=== PATIENT | female | born 1980 | race Caucasian/White ===

== ENCOUNTER 2016-12-12 18:52 | Emergency (ER) | payer OTHER ==
[2016-12-12 19:18] VITALS: BP 141/97
== END 2016-12-12 21:06 | disposition left against medical advice (07) ==
LOC: ED 18:52
DX: R53.83 Other fatigue (principal); Z53.21 Procedure and treatment not carried out due to patient leaving prior to being seen by health care provider

== ENCOUNTER 2016-12-18 19:03 | Emergency (ER) | payer OTHER ==
--- NOTE | 2016-12-18 21:45 | ED ---
Natalya Bolton Rebecca, scribed for Nadeem Mann MD on 12/18/16 at 2114 . Neurological HPI - HPI Summary HPI Summary: Pt is a 36 y/o F who presents to ED c/o seizure aura. Aura began suddenly today at 1850 and has been constant since onset. Quotes aura as a metallic taste in her mouth. Sx aggravated and alleviated by nothing, unchanged by 1 mg Lorazepam (1850). Additionally c/o palpating in her left ear, a "tired" feeling in the LLE and BHATIA (R temporal region). Associated pain is ranked 10/10. PMHx seizures with auras. Typically auras do not last as long as current episode. Last seizure was October 23, 2016 for which she was evaluated by [facility] ED. - History of Current Complaint Chief Complaint: EDSeizure Stated Complaint: SEIZURE AURA Time Seen by Provider: 12/18/16 21:01 Hx Obtained From: Patient Onset/Duration: Sudden Onset, Started hours ago - 3 hours, Still Present Timing: Constant Onset Severity: Moderate Current Severity: Severe Headache Location: Temporal (Right) Pain Intensity: 10 Pain Scale Used: 0-10 Numeric Aggravating: Nothing Alleviating: Nothing Associated Signs and Symptoms: Positive: Headache - R temporal, Weakness - "tired" LLE, Pain - R lutheran pain - Additional Pertinent History Primary Care Physician: [id number] - Allergy/Home Medications Allergies/Adverse Reactions: Allergies Allergy/AdvReac Type Severity Reaction Status Date / Time Bee Venom Allergy Severe Hives Verified 10/22/16 17:22 Morphine Allergy Severe Hives Verified 10/22/16 17:22 Mushroom Extract Complex Allergy Severe Hives Verified 10/22/16 17:22 PMH/Surg Hx/FS Hx/Imm Hx Endocrine/Hematology History: Reports: Hx Anemia - IV iron tx Denies: Hx Anticoagulant Therapy, Hx Diabetes, Hx Thyroid Disease Cardiovascular History: Denies: Hx Congestive Heart Failure, Hx Hypertension, Hx Pacemaker/ICD Comment Only: Other Cardiovascular Problems/Disorders - Arteriovenous malformation - Sx repair in 2008. Right atrial enlargement. Respiratory History: Denies: Hx Asthma, Hx Chronic Obstructive Pulmonary Disease (COPD) History: Denies: Hx Renal Disease Neurological History: Reports: Hx Seizures - grand mal Denies: Hx Dementia Comment Only: Other Neuro Impairments/Disorders - HX OF AVM Psychiatric History: Denies: Hx Substance Abuse - Surgical History Surgery Procedure, Year, and Place: AVM REPAIR. RT TEMPORAL LOBE IN 2009 [place] (removed scar tissue). 5 CSECTIONS Hx Anesthesia Reactions: No - Immunization History Date of Tetanus Vaccine: None Date of Influenza Vaccine: None Infectious Disease History: No Infectious Disease History: Denies: Hx Hepatitis, Hx Human Immunodeficiency Virus (HIV), Traveled Outside the [place] in Last 30 Days - Family History Known Family History: Positive: Hypertension - Social History Alcohol Use: None Hx Substance Use: No Substance Use Type: Reports: None Hx Tobacco Use: Yes Smoking Status (MU): Former Smoker Review of Systems Positive: Other - Palpating in the L ear Neurological: Other - Seizure aura (metallic taste in mouth) Positive: Headache - R lutheran, Weakness - "tired" sensation in the LLE All Other Systems Reviewed And Are Negative: Yes Physical Exam Triage Information Reviewed: Yes Vital Signs On Initial Exam: Initial Vitals Temp Pulse Resp BP Pulse Ox 98.3 F 102 18 109/72 96 12/18/16 19:19 12/18/16 19:19 12/18/16 19:19 12/18/16 19:19 12/18/16 19:19 Vital Signs Reviewed: Yes Appearance: Positive: Well-Appearing, No Pain Distress Skin: Positive: Warm Eyes: Positive: CLAY ENT: Positive: Hearing grossly normal Neck: Positive: Supple Respiratory/Lung Sounds: Positive: Clear to Auscultation, Breath Sounds Present Cardiovascular: Positive: RRR Abdomen Description: Positive: Nontender, Soft Bowel Sounds: Positive: Present Musculoskeletal: Positive: Strength/ROM Intact Neurological: Positive: Sensory/Motor Intact, Normal Gait Psychiatric: Positive: Affect/Mood Appropriate Diagnostics - Vital Signs Vital Signs Temp Pulse Resp BP Pulse Ox 12/18/16 20:33 98.6 F 102 18 95/66 97 12/18/16 19:19 98.3 F 102 18 109/72 96 - Laboratory Result Diagrams: 12/18/16 21:35 12/18/16 21:35 Lab Statement: Any lab studies that have been ordered have been reviewed, and results considered in the medical decision making process. Re-Evaluation - Re-Evaluation First Eval Re-Evaluation Time: 23:04 Change: Improved Comment: Pt is feeling better, discussed d/c plan with her and she agrees and understands. Course/Dx - Course Assessment/Plan: Pt is a 36 y/o F who presents to ED with a CC of seizure aura for 4 hours. Additionally c/o BHATIA, "tired" sensation in the LLE and palpating in the L ear. PMHx seizures. Rapid Influenza type A reveals a positive result. Pt will be d/c to home with a dx of influenza. - Diagnoses Provider Diagnoses: Influenza Discharge - Discharge Plan Condition: Stable Disposition: HOME Patient Education Materials: Influenza (ED) Referrals: Madhavi Mayorga MD [Primary Care Provider] - 4 Days (Follow up with your primary care physician within the next 4 days. ) The documentation as recorded by the Natalya weller Rebecca accurately reflects the service I personally performed and the decisions made by me, Nadeem Mann MD.
[2016-12-18 21:53] LABS: Hematocrit 36 % (35-47); Hemoglobin 12.1 g/dl (12.0-16.0); Mean Corpuscular HGB Conc 34 g/dl (31-36); Mean Corpuscular Hemoglobin 29 pg (27-31); Mean Corpuscular Volume 85 fL (80-97); Mean Platelet Volume 7 um3 (7.4-10.4); Red Blood Count 4.25 10^6/ul (4.0-5.4); Red Cell Distribution Width 14 % (10.5-15); White Blood Count 6.5 10^3/ul (3.5-10.8)
[2016-12-18 22:12] LABS: Albumin 4.2 g/dL (3.2-5.2); BUN/Creatinine Ratio 12.7 (8-20); Calcium 9.2 mg/dL (8.6-10.3); EGFR African American 161.8 (>60); EGFR Non-African American 125.8 (>60); Globulin 2.2 g/dL (2-4); Magnesium 2.2 mg/dL (1.9-2.7); Potassium 3.4 mmol/L (3.5-5.0); Total Bilirubin 0.2 mg/dL (0.2-1.0); Total Protein 6.4 g/dL (6.4-8.9)
[2016-12-18 23:15] VITALS: BP 107/68
== END 2016-12-18 23:14 | disposition home or self-care (01) ==
LOC: ED 19:03
DX: J11.1 Influenza due to unidentified influenza virus with other respiratory manifestations (principal); D64.9 Anemia, unspecified; Z87.891 Personal history of nicotine dependence; G40.909 Epilepsy, unspecified, not intractable, without status epilepticus; Z88.5 Allergy status to narcotic agent
CPT/HCPCS: 36415; 80053; 80156; 80177; 83735; 85025; 87502; 99282

== ENCOUNTER 2017-01-01 08:00 | Emergency (ER) | payer OTHER ==
[2017-01-01 08:17] VITALS: BP 104/78
--- NOTE | 2017-01-01 15:38 | UC ---
reid Bolton Timothy, scribed for Yuridia Westfall DO on 01/01/17 at 0919 . FLU HPI - HPI Summary HPI Summary: Belinda Mendez is a 36 yo female presenting to [facility] with productive cough sometimes with red streaks of blood 3-4x, SOB, sore throat, nasal drainage, BHATIA, fever, chills, myalgia, nausea, and vomiting 5x in the past week and diarrhea. The pain in her throat is worse with swallowing, and it hurts to breathe. She also has red spots(bug bites) in her neck and face, and is photophobic. She was seen in the ER a week ago for possible flu. She is also c/o 10/10 tooth ache after a tooth broke off prior to Sx, and had a fever of 102.9 this morning. Additionally, her urine is darker in color than normal. Her Sx began over two weeks ago at which point she appeared to the ED which Dx her with flu. She states her Sx improved on 12/25/16, but only for a day or two. She has self- medicated with tylenol and ibuprofen, and states she vomited about 5 mins after taking her seizure medication this morning and now she has an aura. She has her lorazepam with her, and just took one. her MHx is significant for seizures, arteriovenous malformation, hypothyroidism for which she is on synthroid, and is a former tobacco smoker. - History of Current Complaint Chief Complaint: UC Stated Complaint: SORE THROAT COUGH RED AREA UNDER EYE Time Seen by Provider: 01/01/17 09:33 Hx Obtained From: Patient Onset/Duration: Gradual Onset, Lasting Days, Still Present Severity Currently: Moderate Severity Initially: Moderate Pain Intensity: 10 Pain Scale Used: 0-10 Numeric Associated Signs & Symptoms: Positive: Fever, F/C, Myalgia, Cough, Sore Throat, Nasal Congestion, Headache, Vomiting, Diarrhea Related Hx: Possible Flu/Infectious Exposure - Allergy/Home Medications Allergies/Adverse Reactions: Allergies Allergy/AdvReac Type Severity Reaction Status Date / Time Bee Venom Allergy Severe Hives Verified 01/01/17 08:07 Morphine Allergy Severe Hives Verified 01/01/17 08:07 Mushroom Extract Complex Allergy Severe Hives Verified 01/01/17 08:07 Home Medications: Home Medications GuaiFENesin DM* [Robitussin DM*] 5 ml PO Q6H PRN 01/01/17 [History Confirmed ] PMH/Surg Hx/FS Hx/Imm Hx Endocrine History Of: Reports: Hypothyroidism - takes Synthroid Denies: Diabetes, Thyroid Disease Cardiovascular History Of: Denies: Cardiac Disorders, Hypertension, Pacemaker/ICD, Congestive Heart Failure Respiratory History Of: Denies: COPD, Asthma GI/ History Of: Denies: Gastroesophageal Reflux, Renal Disease Neurological History Of: Reports: Seizures - grand mal Denies: CVA, Dementia Cancer History Of: Denies: Breast Cancer Other History Of: Negative For: Anticoagulant Therapy - Surgical History Surgical History: Yes Surgery Procedure, Year, and Place: AVM REPAIR. RT TEMPORAL LOBE IN 2008 [place] (removed scar tissue). 5 CSECTIONS - Family History Known Family History: Positive: Cardiac Disease, Hypertension, Other - cancer Negative: Diabetes - Social History Occupation: Disabled Lives: With Family Alcohol Use: None Substance Use Type: None Smoking Status (MU): Former Smoker Household Exposure Type: Cigarettes - Immunization History Most Recent Influenza Vaccination: 2015 Most Recent Tetanus Shot: 2014 Most Recent Pneumonia Vaccination: UNSURE Review of Systems Constitutional: Fever, Chills Skin: Rash - red spots on neck and face Eyes: Photophobia ENT: Dental Pain, Sore Throat, Nasal Discharge Respiratory: Shortness Of Breath, Cough Cardiovascular: Negative Gastrointestinal: Vomiting, Diarrhea Genitourinary: Negative Motor: Negative Neurovascular: Negative Musculoskeletal: Myalgia Neurological: Headache, Other - aura Psychological: Negative All Other Systems Reviewed And Are Negative: Yes Physical Exam Triage Information Reviewed: Yes Appearance: Well-Nourished, Ill-Appearing, Pain Distress - mild Vital Signs: Initial Vital Signs Temp 98.2 F 01/01/17 08:11 Pulse 93 01/01/17 08:11 Resp 16 01/01/17 08:11 BP 104/78 01/01/17 08:11 Pulse Ox 98 01/01/17 08:11 Vital Signs Reviewed: Yes Eyes: Positive: Conjunctiva Clear. Negative: Discharge ENT: Positive: Hearing grossly normal, Pharyngeal erythema, Nasal drainage, TMs normal, Other: - maxillary sinus tenderness exquisite. Negative: Muffled/ hoarse voice Dental: Positive: Percussion Tenderness @ - 2, Gross Decay/Caries @ - diffuse, Dental Fracture @ - diffuse Neck: Positive: Supple, Nontender Respiratory: Positive: Chest non-tender, Lungs clear, No respiratory distress, No accessory muscle use, Expiration - prolonged Cardiovascular: Positive: RRR, No Murmur Abdomen Description: Positive: Nontender, Soft. Negative: CVA Tenderness (R), CVA Tenderness (L), Distended, Guarding Bowel Sounds: Positive: Present Musculoskeletal Exam: Normal Neurological Exam: Other - A&Ox3, CN II-XII INTACT, SENSORY MOTOR INTACT, REFLEXES INTACT, NO CEREBELLAR SIGNS, FACIAL SYMMETRY, NEGATIVE RHOMBERG, NEGATIVE GAIT, NEGATIVE KERNIGS & BRUDINSKIS Neurological: Positive: Alert, Muscle Tone Normal, Other: - strength, reflexes, sensation intact bl, cn2-12 intact, no cerebellar signs, aox4, neg kernigs and brudzinsky's signs Psychological Exam: Normal Psychological: Positive: Age Appropriate Behavior Skin: Positive: Other - small bug bite on left cheek and posterior neck Re-Evaluation - Re-Evaluation First Eval Re-Evaluation Time: 10:00 Change: Unchanged Comment: Inquired about Pt allergy to morphine and experience - she has taken vicodin and codeine with no complications since the allergy to morphine was identified during . Flu Course/Dx - Course Course Of Treatment: Belinda Mendez is a 36 yo female presenting to [facility] with influenza like symptoms, as well as a fractured tooth. After clinical examination and urinary analysis (see results below), she will be discharged home with tooth ache, sinusitis, and bronchospasm with instructions to follow up with her primary care physician and a dentist regarding her broken tooth. UA. color: yellow. character: clear. odor: none. Bilirubin: 2mg/dL. Urobilinogen: negative. Ketones: negative. Ascorbic Acid: negative. Glucose: negative. Protein: 30mg/dL. Blood: negative. pH: 6. Nitrite: negative. Leukocytes: 25 WBC's/microliter. Specific [place]: 1.035 - Differential Dx/Diagnosis Differential Diagnosis/HQI/PQRI: Bronchitis, Influenza, Pneumonia, Upper Respiratory Infection Provider Diagnoses: tooth ache, sinusitis, bronchospasm Discharge - Discharge Plan Condition: Stable Disposition: HOME Prescriptions: Albuterol HFA INHALER* [Ventolin HFA Inhaler*] 2 puff INH Q4H PRN #1 mdi PRN Reason: Sob/Wheezing Amoxicillin/Clavulanate TAB* [Augmentin TAB 875*] 875 mg PO BID #20 tab Benzonatate CAP* [Tessalon CAP*] 100 mg PO TID PRN #30 cap PRN Reason: Cough HYDROcodone/ACETAMIN 5-325 MG* [[place] 5-325 TAB*] 1 tab PO Q6H PRN #8 tab MDD 3 TABS PRN Reason: Pain Ondansetron TAB* [Zofran Tab*] 4 mg PO Q6H PRN #10 tab PRN Reason: Nausea/Vomiting guaiFENesin ER TAB [Mucinex*] 600 mg PO BID PRN #1 box PRN Reason: Cough guaiFENesin/CODIEN 100MG-10MG* [Robitussin AC 100Mg-10Mg*] 5 - 10 ml PO BEDTIME PRN #100 udc MDD 10ml PRN Reason: Cough Patient Education Materials: Toothache (ED), Sinusitis (ED), Bronchospasm (ED) Referrals: Madhavi Mayorga MD [Primary Care Provider] - 2 Days Additional Instructions: AUGMENTIN: Augmentin is a mixture of amoxicillin and clavulanate. Amoxicillin is a member of the penicillin family. It covers the germs likely to cause ear, bronchial, and urinary infections better than plain penicillin. The addition of clavulanate allows it to cover staph infections of the skin, as well as resistant cases of ear and sinus infections. Your physician has chosen Augmentin for you because of the special nature of your situation. Augmentin is best taken with meals. Nausea after taking the medication is rare, but can occur. Diarrhea can occur, particularly in small children. Vaginal yeast infections, and oral thrush in infants are also common. Contact your physician if these problems occur. Allergy to penicillins is common. If you have had an allergic reaction to any drug of the penicillin family, you should never take any other penicillin. Notify your doctor at once if you develop hives, shortness of breath, swelling, or faintness. ANY TIME YOU TAKE AN ANTIBIOTIC, IT IS IMPORTANT TO REPLENISH THE BODY'S BALANCE OF "GOOD" BACTERIA BY EATING HIGH QUALITY CULTURED FOOD SUCH YOGURT, SAURKRAUT OR SAEED CHI AND/OR TAKING A PROBIOTIC SUPPLEMENT. ORAL NARCOTIC MEDICATION: You have been given a prescription for pain control. This medication is a narcotic. It's best taken with food, as nausea can result if taken on an empty stomach. Don't operate machinery or drive within six hours of taking this medication. Do not combine this medicine with alcohol, or with any medication which can cause sedation (such as cold tablets or sleeping pills) unless you get permission from the physician. Narcotics tend to cause constipation. If possible, drink plenty of fluids and eat a diet high in fiber and fruits. DISCUSSED, DO NOT TAKE THE NORCO AT THE THE SAME TIME YOU ARE TAKING THE COUGH SYRUP. ALSO, BE AWARE THAT 3 OF THE MEDICINE YOU ARE GETTING CAUSE CONSTIPATION - ZOFRAN, NORCO AND COUGH SYRUP WITH CODIENE. TAKE PRECAUTIONS TO AVOID GETTINE BACKED UP.. INHALED BRONCHODILATORS: You have received a prescription for an inhaled bronchodilator -- a medication which stimulates the airways in the lung to dilate. This improves the flow of air in asthma, bronchitis, and emphysema. These medicines have some similarity to adrenaline, and can cause similar side effects: shakiness, racing heart, and a sense of nervousness. These side effects decrease with time. Contact your doctor if these side effects are severe. Do not over-use the medicine. Too-frequent use of the inhaler may make it ineffective. Call your doctor if the inhaler is not controlling your symptoms at the prescribed doses. COUGH-SUPPRESSANT & EXPECTORANT MEDICATION: You are to use a cough medication as needed for relief of symptoms. This medicine is a combination of an expectorant (to make the mucous thinner and more easily "coughed up") and a cough suppressant (to reduce the frequency of coughing). The cough-suppressant medicine is related to narcotics. You may experience mild nausea and sleepiness. Some patients who are very sensitive to narcotics may have stomach pain from this medicine. Taking the medicine with food reduces these side effects. Do not drive or work with machinery until you know how this medicine affects you. The expectorant should have no side effects. Iodine-containing expectorants (such as organidin) should not be taken by persons with active thyroid disease unless approved by your doctor. Call the doctor if you develop shortness of breath, hives, rash, itching, lightheadedness, or severe nausea and vomiting. EXPECTORANT MEDICATION: An expectorant medicine has been prescribed. This type of drug makes mucous thinner, helping the sinuses, nose, and bronchial tubes to remain free of pus and mucous. Expectorants make a cough less severe and more comfortable, and help infected sinuses drain. In general, antihistamines defeat the purpose of the expectorant by making mucous thicker. They should be avoided unless specifically recommended by your physician. TESSALON PERLES: You have received a prescription for Tessalon Perles (benzonatate). This is a non-narcotic medicine for relief of cough. It usually works in about 15- 20 minutes and lasts around four hours. Tessalon Perles should be swallowed. They should not be chewed or dissolved in the mouth (this can produce temporary numbing of the mouth and choking can occur). If you develop any adverse effects such as wheezing, shortness of breath, hives, rash, itching, or lightheadedness, please return at once. TRY HARJIT TEA FOR FOR YOUR NAUSEA AND VOMITING. IF HARJIT DOES NOT ADAQUATELY CONTROL YOUR SYMPTOMS, YOU CAN TRY ZOFRAN. Please follow up with your primary care provider and a dentist regarding your visit to urgent care today. Return to urgent care or the emergency department with any new or recurring symptoms. The documentation as recorded by the reid weller Timothy accurately reflects the service I personally performed and the decisions made by , Yuridia Westfall DO.
== END 2017-01-01 10:20 | disposition home or self-care (01) ==
LOC: UCEAST 08:00
DX: J32.9 Chronic sinusitis, unspecified (principal); J98.01 Acute bronchospasm; K08.89 Other specified disorders of teeth and supporting structures; R82.90 Unspecified abnormal findings in urine; E03.9 Hypothyroidism, unspecified; Z88.5 Allergy status to narcotic agent
CPT/HCPCS: 81002; 87086; 99212; G0463

== ENCOUNTER 2017-01-01 22:47 | Emergency (ER) | payer OTHER ==
[2017-01-01] MEDS ORDERED: NS 0.9% 1000 ML* 1,000 ML IV ONE (23:06)
[2017-01-02 00:10] LABS: Albumin 4.2 g/dL (3.2-5.2); BUN/Creatinine Ratio 8.9 (8-20); Calcium 9.2 mg/dL (8.6-10.3); EGFR African American 158.4 (>60); EGFR Non-African American 123.2 (>60); Globulin 2.3 g/dL (2-4); Potassium 3.1 mmol/L (3.5-5.0); Total Bilirubin 0.2 mg/dL (0.2-1.0); Total Protein 6.5 g/dL (6.4-8.9)
[2017-01-02 00:12] LABS: Hematocrit 35 % (35-47); Hemoglobin 12.2 g/dl (12.0-16.0); Mean Corpuscular HGB Conc 34 g/dl (31-36); Mean Corpuscular Hemoglobin 29 pg (27-31); Mean Corpuscular Volume 84 fL (80-97); Mean Platelet Volume 7 um3 (7.4-10.4); Red Blood Count 4.21 10^6/ul (4.0-5.4); Red Cell Distribution Width 14 % (10.5-15); White Blood Count 5.8 10^3/ul (3.5-10.8)
[2017-01-02] MEDS ORDERED: Potassium Chloride LIQUID* 20 MEQ PACKET PO ONE (00:12)
--- NOTE | 2017-01-02 00:26 | ED ---
Natalya Bolton Rebecca, scribed for Nadeem Mann MD on 01/01/17 at 2310 . Complex/Multi-Sys Presentation - HPI Summary HPI Summary: Pt is a 36 y/o F who presents to ED c/o seizure aura. States that she is feeling similar to when she had her first grand mal seizure and that she typically gets seizures prior to the onset of seizures. C/o generalized body aches, nausea and a moderate, sharp pain in her R yarsani. Sx began suddenly tonight and have been constant since [place]. Sx aggravated and alleviated by nothing. PMHx seizures. Last seizure was 10/23/2016. Compliant with Keppra. - History Of Current Complaint Chief Complaint: EDGeneral Time Seen by Provider: 01/01/17 23:04 Hx Obtained From: Patient Onset/Duration: Still Present Timing: Constant Severity Currently: Moderate Severity Initially: Moderate Character: Sharp Aggravating Factor(s): Nothing Alleviating Factor(s): Nothing Associated Signs And Symptoms: Positive: Headache - right yarsani, Nausea, Other - Generalized body aches, seizure aura Related History: Similar Episode/Diagnosed As: - Grand mal seizures - Allergies/Home Medications Allergies/Adverse Reactions: Allergies Allergy/AdvReac Type Severity Reaction Status Date / Time Bee Venom Allergy Severe Hives Verified 01/01/17 08:07 Morphine Allergy Severe Hives Verified 01/01/17 08:07 Mushroom Extract Complex Allergy Severe Hives Verified 01/01/17 08:07 PMH/Surg Hx/FS Hx/Imm Hx Endocrine/Hematology History: Reports: Hx Anemia - IV iron tx Denies: Hx Anticoagulant Therapy, Hx Diabetes, Hx Thyroid Disease Cardiovascular History: Denies: Hx Congestive Heart Failure, Hx Hypertension, Hx Pacemaker/ICD Comment Only: Other Cardiovascular Problems/Disorders - Arteriovenous malformation - Sx repair in 2008. Right atrial enlargement. Respiratory History: Denies: Hx Asthma, Hx Chronic Obstructive Pulmonary Disease (COPD) History: Denies: Hx Renal Disease Neurological History: Reports: Hx Seizures - grand mal Denies: Hx Dementia Comment Only: Other Neuro Impairments/Disorders - HX OF AVM Psychiatric History: Denies: Hx Substance Abuse - Surgical History Surgery Procedure, Year, and Place: AVM REPAIR. RT TEMPORAL LOBE IN 2008 [place] (removed scar tissue). 5 CSECTIONS Hx Anesthesia Reactions: No - Immunization History Date of Tetanus Vaccine: None Date of Influenza Vaccine: None Infectious Disease History: No Infectious Disease History: Denies: Hx Hepatitis, Hx Human Immunodeficiency Virus (HIV), Traveled Outside the [place] in Last 30 Days - Family History Known Family History: Positive: Cardiac Disease, Hypertension, Other - cancer Negative: Diabetes - Social History Alcohol Use: None Hx Substance Use: No Substance Use Type: Reports: None Hx Tobacco Use: Yes Smoking Status (MU): Former Smoker Review of Systems Positive: Other - Generalized body aches Positive: Nausea Neurological: Other - seizure aura Positive: Headache - Right yarsani All Other Systems Reviewed And Are Negative: Yes Physical Exam Triage Information Reviewed: Yes Vital Signs On Initial Exam: Initial Vitals Temp Pulse Resp BP Pulse Ox 100.0 F 88 16 101/70 98 01/01/17 22:53 01/01/17 22:53 01/01/17 22:53 01/01/17 22:53 01/01/17 22:53 Vital Signs Reviewed: Yes Appearance: Positive: No Pain Distress, Thin Skin: Positive: Warm Eyes: Positive: EOMI, CLAY ENT: Positive: Hearing grossly normal Neck: Positive: Supple Respiratory/Lung Sounds: Positive: Clear to Auscultation, Breath Sounds Present Cardiovascular: Positive: RRR. Negative: Murmur Abdomen Description: Positive: Nontender, Soft Bowel Sounds: Positive: Present Musculoskeletal: Positive: Strength/ROM Intact Neurological: Positive: Alert, Oriented to Person Place, Time Diagnostics - Vital Signs Vital Signs Temp Pulse Resp BP Pulse Ox 01/01/17 22:53 100.0 F 88 16 101/70 98 - Laboratory Lab Results: Lab Results 01/01/17 01/01/17 01/02/17 Range/Units 23:30 23:30 00:08 WBC 5.8 (3.5-10.8) 10^3/ul RBC 4.21 (4.0-5.4) 10^6/ul Hgb 12.2 (12.0-16.0) g/dl Hct 35 (35-47) % MCV 84 (80-97) fL MCH 29 (27-31) pg MCHC 34 (31-36) g/dl RDW 14 (10.5-15) % Plt Count 257 (150-450) 10^3/ul MPV 7 L (7.4-10.4) um3 Neut % (Auto) 49.0 (38-83) % Lymph % (Auto) 32.8 (25-47) % [place] % (Auto) 11.5 H (1-9) % Eos % (Auto) 6.2 H (0-6) % Baso % (Auto) 0.5 (0-2) % Absolute Neuts (auto) 2.9 (1.5-7.7) 10^3/ul Absolute Lymphs (auto) 1.9 (1.0-4.8) 10^3/ul Absolute Monos (auto) 0.7 (0-0.8) 10^3/ul Absolute Eos (auto) 0.4 (0-0.6) 10^3/ul Absolute Basos (auto) 0 (0-0.2) 10^3/ul Absolute Nucleated RBC 0 10^3/ul Nucleated RBC % 0.1 Sodium 133 (133-145) mmol/L Potassium 3.1 L (3.5-5.0) mmol/L Chloride 101 (101-111) mmol/L Carbon Dioxide 27 (22-32) mmol/L Anion Gap 5 (2-11) mmol/L BUN 5 L (6-24) mg/dL Creatinine 0.56 (0.51-0.95) mg/dL Est GFR ( Amer) 158.4 (>60) Est GFR (Non-Af Amer) 123.2 (>60) BUN/Creatinine Ratio 8.9 (8-20) Glucose 97 (70-100) mg/dL Calcium 9.2 (8.6-10.3) mg/dL Magnesium 2.0 (1.9-2.7) mg/dL Total Bilirubin 0.20 (0.2-1.0) mg/dL AST 13 (13-39) U/L ALT 8 (7-52) U/L Alkaline Phosphatase 51 (34-104) U/L Total Protein 6.5 (6.4-8.9) g/dL Albumin 4.2 (3.2-5.2) g/dL Globulin 2.3 (2-4) g/dL Albumin/Globulin Ratio 1.8 (1-3) Influenza A (Rapid) Negative (Negative) Influenza B (Rapid) Negative (Negative) Result Diagrams: 01/01/17 23:30 01/01/17 23:30 Lab Statement: Any lab studies that have been ordered have been reviewed, and results considered in the medical decision making process. Complex Multi-Symp Course/Dx Assessment/Plan: Pt is a 36 y/o F c/o generalized body aches, nausea and a moderate, sharp pain in her R yarsani. Reports sx similar to prior preseizure auras. Influenza A and B [place] were both negative. Pt will be D/C to home with a dx of viral syndrome with a followup with her PCP. - Diagnoses Provider Diagnoses: Viral syndrome Discharge - Discharge Plan Condition: Stable Disposition: HOME Patient Education Materials: Viral Syndrome (ED) Referrals: Madhavi Mayorga MD [Primary Care Provider] - 4 Days (Follow up with your primary care physician in the next 4 days. ) Additional Instructions: Continue present treatment. Followup with your primary care physician. The documentation as recorded by the Natalya weller Rebecca accurately reflects the service I personally performed and the decisions made by , Nadeem Mann MD.
[2017-01-02 00:38] VITALS: BP 107/70
== END 2017-01-02 00:44 | disposition home or self-care (01) ==
LOC: ED 22:47
DX: B34.9 Viral infection, unspecified (principal); R11.0 Nausea; Z87.891 Personal history of nicotine dependence
CPT/HCPCS: 36415; 80053; 83735; 85025; 86703; 87502; 99282; A9270-GY

== ENCOUNTER 2017-01-30 09:29 | Emergency (ER) | payer OTHER ==
[2017-01-30] MEDS ORDERED: NS 0.9% 1000 ML* 1,000 ML IV SCH (10:00)
[2017-01-30 10:21] LABS: Hematocrit 36 % (35-47); Hemoglobin 12.1 g/dl (12.0-16.0); Mean Corpuscular HGB Conc 34 g/dl (31-36); Mean Corpuscular Hemoglobin 29 pg (27-31); Mean Corpuscular Volume 86 fL (80-97); Mean Platelet Volume 7 um3 (7.4-10.4); Red Blood Count 4.17 10^6/ul (4.0-5.4); Red Cell Distribution Width 15 % (10.5-15); White Blood Count 6.7 10^3/ul (3.5-10.8)
[2017-01-30] MEDS ORDERED: LORazepam INJ* 2 MG/ML 1 ML VIAL IV ONE (10:32)
[2017-01-30] MEDS ORDERED: Ondansetron INJ* 2 MG/ML VIAL IV ONE (10:32)
[2017-01-30 10:42] LABS: ALT 9 U/L (7-52); AST 16 U/L (13-39); Albumin 4.5 g/dL (3.2-5.2); Alkaline Phosphatase 48 U/L (34-104); Anion Gap 6 mmol/L (2-11); BUN/Creatinine Ratio 12.1 (8-20); Blood Urea Nitrogen 7 mg/dL (6-24); C Reactive Protein < 1.00 mg/L (< 5.00); CO2 Carbon Dioxide 26 mmol/L (22-32); Calcium 9.6 mg/dL (8.6-10.3); Chloride 104 mmol/L (101-111); EGFR African American 152.1 (>60); EGFR Non-African American 118.3 (>60); Globulin 2.2 g/dL (2-4); Glucose 85 mg/dL (70-100); Potassium 3.7 mmol/L (3.5-5.0); Sodium 136 mmol/L (133-145); Total Protein 6.7 g/dL (6.4-8.9)
[2017-01-30 10:50] LABS: Urine Bilirubin Negative (Negative); Urine Glucose Negative (Negative); Urine Nitrite Negative (Negative)
[2017-01-30 11:06] LABS: TSH (Thyroid Stimulating Horm) 3.71 mcIU/mL (0.34-5.60)
[2017-01-30] MEDS ORDERED: Acetaminophen TAB* 325 MG PO ONE (11:26)
--- NOTE | 2017-01-30 13:21 | ED ---
Natalie Bolton Alok, scribed for Matti Romero MD on 01/30/17 at 1038 . Syncope/Near Syncope - HPI Summary HPI Summary: 36 y/o female with MHx of epilepsy presents to the ED following syncopal episode today at 0200 and another episode shortly after. Both episodes were witnessed by her mother and described as seizure-like accompanied by tremors. Pt states she woke up with an aura this morning at 0849 for which she took 1 mg Lorazepam which she is prescribed PO as needed. Pt also took 1 mg the day before , but in general only takes it as needed. Pt adds feeling both blurry vision and double vision as well as a metallic taste in her mouth this morning. Pt adds that her symptoms have probably been aggravated due to stress at home. Pt denies any URI-like symptoms and additionally takes 10 mg Citalopram 1 PO BID for depression. - History Of Current Complaint Chief Complaint: EDSeizure Time Seen by Provider: 01/30/17 09:39 Hx Obtained From: Patient Onset/Duration: Gradual Onset, Lasting Minutes, Resolved Timing: Intermittent Episode Lasting Context: Witnessed - Mother Activity At Onset: At Rest Associated Head Trauma: No Aggravating Factor(s): Other - Mental Stress Associated Signs And Symptoms: Seizure, Other - Blurred/Double vision - Allergies/Home Medications Allergies/Adverse Reactions: Allergies Allergy/AdvReac Type Severity Reaction Status Date / Time Bee Venom Allergy Severe Hives Verified 01/01/17 08:07 Morphine Allergy Severe Hives Verified 01/01/17 08:07 Mushroom Extract Complex Allergy Severe Hives Verified 01/01/17 08:07 Home Medications: Home Medications Citalopram TAB* [Celexa TAB*] 1 tab PO BID 01/30/17 [History Confirmed 01/30/17] LORazepam TAB(*) [Ativan TAB(*)] 1 mg PO TID PRN MDD 3 tabs 01/30/17 [History Confirmed 01/30/17] Levetiracetam [Keppra LIQ] 15 ml PO DAILY 01/30/17 [History Confirmed 01/30/17] Levetiracetam [Keppra LIQ] 20 ml PO BEDTIME 01/30/17 [History Confirmed 01/30/17 ] OXcarbazepine TAB(*) [Trileptal TAB(*)] 600 mg PO BID 01/30/17 [History Confirmed 01/30/17] PMH/Surg Hx/FS Hx/Imm Hx Endocrine/Hematology History: Reports: Hx Anemia - IV iron tx Denies: Hx Anticoagulant Therapy, Hx Diabetes, Hx Thyroid Disease Cardiovascular History: Denies: Hx Congestive Heart Failure, Hx Hypertension, Hx Pacemaker/ICD Comment Only: Other Cardiovascular Problems/Disorders - Arteriovenous malformation - Sx repair in 2008. Right atrial enlargement. Respiratory History: Denies: Hx Asthma, Hx Chronic Obstructive Pulmonary Disease (COPD) History: Denies: Hx Renal Disease Neurological History: Reports: Hx Seizures - grand mal Denies: Hx Dementia Comment Only: Other Neuro Impairments/Disorders - HX OF AVM Psychiatric History: Reports: Hx Depression Denies: Hx Substance Abuse - Surgical History Surgery Procedure, Year, and Place: AVM REPAIR. RT TEMPORAL LOBE IN 2008 [place] (removed scar tissue). 5 CSECTIONS Hx Anesthesia Reactions: No - Immunization History Date of Tetanus Vaccine: None Date of Influenza Vaccine: None Infectious Disease History: No Infectious Disease History: Denies: Hx Hepatitis, Hx Human Immunodeficiency Virus (HIV), Traveled Outside the in Last 30 Days - Family History Known Family History: Positive: Cardiac Disease, Hypertension, Other - cancer Negative: Diabetes - Social History Alcohol Use: None Hx Substance Use: No Substance Use Type: Reports: Sedatives Substance Use Comment - Amount & Last Used: Ativan Hx Tobacco Use: Yes Smoking Status (MU): Former Smoker Review of Systems Negative: Fever Positive: Blurred Vision Negative: Sore Throat, Nasal Discharge Negative: Cough Positive: Syncope All Other Systems Reviewed And Are Negative: Yes Physical Exam Triage Information Reviewed: Yes Vital Signs On Initial Exam: Initial Vitals Temp Pulse Resp BP Pulse Ox 98.0 F 102 20 106/82 97 01/30/17 09:41 01/30/17 09:41 01/30/17 09:41 01/30/17 09:41 01/30/17 09:41 Vital Signs Reviewed: Yes Appearance: Positive: Well-Appearing, No Pain Distress Skin: Positive: Warm, Skin Color Reflects Adequate Perfusion, Dry Head/Face: Positive: Normal Head/Face Inspection Eyes: Positive: EOMI, CLAY ENT: Positive: Normal ENT inspection Neck: Positive: Supple, Nontender Respiratory/Lung Sounds: Positive: Clear to Auscultation, Breath Sounds Present Cardiovascular: Positive: RRR Abdomen Description: Positive: Nontender, Soft Bowel Sounds: Positive: Present Musculoskeletal: Positive: Normal, Strength/ROM Intact Neurological: Positive: Normal, Sensory/Motor Intact, Alert, Oriented to Person Place, Time Psychiatric: Positive: Normal, Affect/Mood Appropriate - [place] Coma Scale Coma Scale Total: 15 Diagnostics - Vital Signs Vital Signs Temp Pulse Resp BP Pulse Ox 01/30/17 09:41 98.0 F 102 20 106/82 97 - Laboratory Lab Results: Lab Results 01/30/17 01/30/17 01/30/17 Range/Units 09:58 09:58 09:58 WBC 6.7 (3.5-10.8) 10^3/ul RBC 4.17 (4.0-5.4) 10^6/ul Hgb 12.1 (12.0-16.0) g/dl Hct 36 (35-47) % MCV 86 (80-97) fL MCH 29 (27-31) pg MCHC 34 (31-36) g/dl RDW 15 (10.5-15) % Plt Count 295 (150-450) 10^3/ul MPV 7 L (7.4-10.4) um3 Neut % (Auto) 50.8 (38-83) % Lymph % (Auto) 34.9 (25-47) % Trinity % (Auto) 10.0 H (1-9) % Eos % (Auto) 3.9 (0-6) % Baso % (Auto) 0.4 (0-2) % Absolute Neuts (auto) 3.4 (1.5-7.7) 10^3/ul Absolute Lymphs (auto) 2.3 (1.0-4.8) 10^3/ul Absolute Monos (auto) 0.7 (0-0.8) 10^3/ul Absolute Eos (auto) 0.3 (0-0.6) 10^3/ul Absolute Basos (auto) 0 (0-0.2) 10^3/ul Absolute Nucleated RBC 0 10^3/ul Nucleated RBC % 0 Sodium 136 (133-145) mmol/L Potassium 3.7 (3.5-5.0) mmol/L Chloride 104 (101-111) mmol/L Carbon Dioxide 26 (22-32) mmol/L Anion Gap 6 (2-11) mmol/L BUN 7 (6-24) mg/dL Creatinine 0.58 (0.51-0.95) mg/dL Est GFR ( Amer) 152.1 (>60) Est GFR (Non-Af Amer) 118.3 (>60) BUN/Creatinine Ratio 12.1 (8-20) Glucose 85 (70-100) mg/dL Lactic Acid 1.4 (0.5-2.0) mmol/L Calcium 9.6 (8.6-10.3) mg/dL Total Bilirubin 0.30 (0.2-1.0) mg/dL AST 16 (13-39) U/L ALT 9 (7-52) U/L Alkaline Phosphatase 48 (34-104) U/L C-Reactive Protein < 1.00 (< 5.00) mg/L Total Protein 6.7 (6.4-8.9) g/dL Albumin 4.5 (3.2-5.2) g/dL Globulin 2.2 (2-4) g/dL Albumin/Globulin Ratio 2.0 (1-3) TSH 3.71 (0.34-5.60) mcIU/mL Beta HCG, Quant < 0.60 mIU/mL Urine Color Urine Appearance Urine pH (5-9) Ur Specific [place] (1.010-1.030) Urine Protein (Negative) Urine Ketones (Negative) Urine Blood (Negative) Urine Nitrate (Negative) Urine Bilirubin (Negative) Urine Urobilinogen (Negative) Ur Leukocyte Esterase (Negative) Urine Glucose (Negative) 01/30/17 Range/Units 10:38 WBC (3.5-10.8) 10^3/ul RBC (4.0-5.4) 10^6/ul Hgb (12.0-16.0) g/dl Hct (35-47) % MCV (80-97) fL MCH (27-31) pg MCHC (31-36) g/dl RDW (10.5-15) % Plt Count (150-450) 10^3/ul MPV (7.4-10.4) um3 Neut % (Auto) (38-83) % Lymph % (Auto) (25-47) % Trinity % (Auto) (1-9) % Eos % (Auto) (0-6) % Baso % (Auto) (0-2) % Absolute Neuts (auto) (1.5-7.7) 10^3/ul Absolute Lymphs (auto) (1.0-4.8) 10^3/ul Absolute Monos (auto) (0-0.8) 10^3/ul Absolute Eos (auto) (0-0.6) 10^3/ul Absolute Basos (auto) (0-0.2) 10^3/ul Absolute Nucleated RBC 10^3/ul Nucleated RBC % Sodium (133-145) mmol/L Potassium (3.5-5.0) mmol/L Chloride (101-111) mmol/L Carbon Dioxide (22-32) mmol/L Anion Gap (2-11) mmol/L BUN (6-24) mg/dL Creatinine (0.51-0.95) mg/dL Est GFR ( Amer) (>60) Est GFR (Non-Af Amer) (>60) BUN/Creatinine Ratio (8-20) Glucose (70-100) mg/dL Lactic Acid (0.5-2.0) mmol/L Calcium (8.6-10.3) mg/dL Total Bilirubin (0.2-1.0) mg/dL AST (13-39) U/L ALT (7-52) U/L Alkaline Phosphatase (34-104) U/L C-Reactive Protein (< 5.00) mg/L Total Protein (6.4-8.9) g/dL Albumin (3.2-5.2) g/dL Globulin (2-4) g/dL Albumin/Globulin Ratio (1-3) TSH (0.34-5.60) mcIU/mL Beta HCG, Quant mIU/mL Urine Color Yellow Urine Appearance Clear Urine pH 6.0 (5-9) Ur Specific [place] 1.016 (1.010-1.030) Urine Protein Negative (Negative) Urine Ketones Negative (Negative) Urine Blood Negative (Negative) Urine Nitrate Negative (Negative) Urine Bilirubin Negative (Negative) Urine Urobilinogen Negative (Negative) Ur Leukocyte Esterase Negative (Negative) Urine Glucose Negative (Negative) Result Diagrams: 01/30/17 09:58 01/30/17 09:58 Lab Statement: Any lab studies that have been ordered have been reviewed, and results considered in the medical decision making process. Re-Evaluation - Re-Evaluation First Eval Re-Evaluation Time: 13:15 Course/Dx Assessment/Plan: WELL IN ED. DISCUSSED WITH DR SOLORIO. HE RECOMMENDED INCREASING TRILEPTAL FROM 600MG PO BID TO 600MG IN THE MORNING AND 750MG IN THE EVENING. DISCHARGE HOME STABLE. - Diagnoses Provider Diagnoses: Epilepsy - Physician Notifications Discussed Care Of Patient With: Dr Solorio (Neuro) @ 1156. Dr Solorio (Neuro) @ 1846 Discharge - Discharge Plan Condition: Stable Disposition: HOME Patient Education Materials: Epilepsy (ED) Referrals: Madhavi Mayorga MD [Primary Care Provider] - Leatha Slater MD [Medical Doctor] - Additional Instructions: FOLLOW UP WITH YOUR NEUROLOGIST, DR SLATER. DR SOLORIO RECOMMENDED YOU INCREASE YOUR TRILEPTAL FROM 600MG TWICE A DAY TO 600MG IN THE MORNING AND 750MG IN THE EVENING. RETURN TO THE EMERGENCY DEPARTMENT FOR ANY WORSENING OF YOUR CONDITION OR QUESTIONS OR CONCERNS. The documentation as recorded by the Natalie weller Alok accurately reflects the service I personally performed and the decisions made by me, Matti Romero MD.
[2017-01-30 13:42] VITALS: BP 105/58
[2017-02-01 15:42] LABS: Levetiracetam 43.1 mcg/mL
== END 2017-01-30 13:41 | disposition home or self-care (01) ==
LOC: ED 09:29
DX: G40.909 Epilepsy, unspecified, not intractable, without status epilepticus (principal); R56.9 Unspecified convulsions; H53.8 Other visual disturbances; Z87.891 Personal history of nicotine dependence; R55 Syncope and collapse
CPT/HCPCS: 36415; 80053; 80177; 80183; 81003; 83605; 84443; 84702; 85025; 86140; 96374; 96375; 99284; A9270-GY; J2060; J2405

== ENCOUNTER 2017-02-07 06:18 | Emergency (ER) | payer OTHER ==
[2017-02-07 08:01] LABS: Hematocrit 37 % (35-47); Hemoglobin 12.2 g/dl (12.0-16.0); Mean Corpuscular HGB Conc 33 g/dl (31-36); Mean Corpuscular Hemoglobin 29 pg (27-31); Mean Corpuscular Volume 87 fL (80-97); Mean Platelet Volume 7 um3 (7.4-10.4); Red Blood Count 4.23 10^6/ul (4.0-5.4); Red Cell Distribution Width 14 % (10.5-15); White Blood Count 6.1 10^3/ul (3.5-10.8)
[2017-02-07 08:15] LABS: Albumin 4.2 g/dL (3.2-5.2); BUN/Creatinine Ratio 21.4 (8-20); Calcium 9.4 mg/dL (8.6-10.3); EGFR African American 158.4 (>60); EGFR Non-African American 123.2 (>60); Globulin 2.3 g/dL (2-4); Potassium 3.5 mmol/L (3.5-5.0); Total Bilirubin 0.3 mg/dL (0.2-1.0); Total Protein 6.5 g/dL (6.4-8.9)
[2017-02-07 10:00] VITALS: BP 102/62
[2017-02-08 14:00] LABS: Levetiracetam 8.5 mcg/mL
--- NOTE | 2017-02-10 15:39 | ED ---
Quique Bolton Adam, scribed for Dylon Dean MD on 02/07/17 at 0716 . Neurological HPI - HPI Summary HPI Summary: Pt is a 36 year old female BIBA with concerns about an imminent seizure. She has EEG home monitor attached. Pt states that she had multiple auras yesterday, including one while eating dinner and one while taking her nighttime medications. This morning she woke up with a strong aura which is marked by metallic taste, copper smell, left-sided numbness, and pulsating in the left ear. She also states that her cat sniffs around her face when she is going to have a seizure and her cat was doing that this morning. Pt states that the left- sided numbness this morning has been worse than it is during a typical aura. She did feel pain when her IV was put in though. Upon examination the pt states that the aura has changed and the taste is gone. She does not have MP's b/c of hysterectomy. She still has her ovaries and Fallopian tubes. - History of Current Complaint Chief Complaint: EDSeizure Stated Complaint: POSS SEIZURE Hx Obtained From: Patient Onset/Duration: Sudden Onset, Started days ago, Still Present Timing: Intermittent Episodes Lasting: - Seconds - Minutes Onset Severity: Moderate Current Severity: Moderate Pain Intensity: 0 Character: Other: - Aura involving metallic taste, copper smell, left-sided numbness, and pulsating in left ear Aggravating: Nothing Alleviating: Spontanious Resolution - Additional Pertinent History Primary Care Physician: [id number] - Allergy/Home Medications Allergies/Adverse Reactions: Allergies Allergy/AdvReac Type Severity Reaction Status Date / Time Bee Venom Allergy Severe Hives Verified 01/01/17 08:07 Morphine Allergy Severe Hives Verified 01/01/17 08:07 Mushroom Extract Complex Allergy Severe Hives Verified 01/01/17 08:07 PMH/Surg Hx/FS Hx/Imm Hx Endocrine/Hematology History: Reports: Hx Anemia - IV iron tx Denies: Hx Anticoagulant Therapy, Hx Diabetes, Hx Thyroid Disease Cardiovascular History: Denies: Hx Congestive Heart Failure, Hx Hypertension, Hx Pacemaker/ICD Comment Only: Other Cardiovascular Problems/Disorders - Arteriovenous malformation - Sx repair in 2008. Right atrial enlargement. Respiratory History: Denies: Hx Asthma, Hx Chronic Obstructive Pulmonary Disease (COPD) History: Denies: Hx Renal Disease Neurological History: Reports: Hx Seizures - grand mal Denies: Hx Dementia Comment Only: Other Neuro Impairments/Disorders - HX OF AVM Psychiatric History: Reports: Hx Depression Denies: Hx Substance Abuse - Surgical History Surgery Procedure, Year, and Place: AVM REPAIR. RT TEMPORAL LOBE IN 2009 [place] (removed scar tissue). 5 CSECTIONS Hx Anesthesia Reactions: No - Immunization History Date of Tetanus Vaccine: None Date of Influenza Vaccine: None Infectious Disease History: No Infectious Disease History: Denies: Hx Hepatitis, Hx Human Immunodeficiency Virus (HIV), Traveled Outside the in Last 30 Days - Family History Known Family History: Positive: Cardiac Disease, Hypertension, Other - cancer Negative: Diabetes - Social History Occupation: Unemployed Lives: With Family - Parents Alcohol Use: None Hx Substance Use: Yes Substance Use Type: Reports: Sedatives Substance Use Comment - Amount & Last Used: Ativan Hx Tobacco Use: Yes Smoking Status (MU): Former Smoker Review of Systems Negative: Fever, Chills Negative: Erythema Positive: Other - Pulsating in left ear, metallic taste, copper smell. Negative : Sore Throat Negative: Chest Pain Negative: Shortness Of Breath, Cough Negative: Abdominal Pain, Vomiting, Nausea Negative: dysuria, hematuria Negative: Myalgia, Edema Negative: Rash Positive: Numbness - Left side All Other Systems Reviewed And Are Negative: Yes Physical Exam - Summary Physical Exam Summary: Constitutional: Well-developed, Well-nourished, Alert. (-) Distressed Skin: Warm, Dry HENT: Poor dentition. Eyes: Conjunctiva normal Neck: Musculoskeletal ROM normal neck. (-) JVD, (-) Stridor, (-) Tracheal deviation Cardio: Rhythm regular, rate normal, Heart sounds normal; Intact distal pulses; The pedal pulses are 2+ and symmetric. Radial pulses are 2+ and symmetric. (-) Murmur Pulmonary/Chest wall: Effort normal. (-) Respiratory distress, (-) Wheezes, (-) Rales Abd: Soft. (-) Tenderness, (-) Distension, (-) Guarding, (-) Rebound Musculoskeletal: (-) Edema Lymph: (-) Cervical adenopathy Neuro: Alert, Oriented x3, Strength normal, Cranial nerves II-XII are grossly intact. (-) Dysmetria, (-) Nystagmus, (-) Ataxia by finger to nose testing, (-) Sensory deficit. [address] Psych: Mood and affect Normal Triage Information Reviewed: Yes Vital Signs On Initial Exam: Initial Vitals Temp Pulse Resp BP Pulse Ox 98.3 F 73 16 110/85 100 02/07/17 06:25 02/07/17 06:25 02/07/17 06:25 02/07/17 06:25 02/07/17 06:25 Vital Signs Reviewed: Yes Diagnostics - Vital Signs Vital Signs Temp Pulse Resp BP Pulse Ox 02/07/17 07:00 70 97 02/07/17 06:30 76 107/71 99 02/07/17 06:28 93 100 02/07/17 06:27 93 100 02/07/17 06:26 103/67 02/07/17 06:25 98.3 F 73 16 110/85 100 - Laboratory Result Diagrams: 02/07/17 07:46 02/07/17 07:46 Lab Statement: Any lab studies that have been ordered have been reviewed, and results considered in the medical decision making process. Course/Dx - Course Course Of Treatment: Medical records reviewed. Patient was seen here on 01/[address] Romero for seizure aura, thought to be related to stress. She was recommended to increase her Trileptal dosage to 750 mg at night, 600 mg in the morning. She sees Dr. Coles. - Diagnoses Provider Diagnoses: Seizure aura - Physician Notifications Discussed Care of Patient With: Dr. Coles at approximately 07:50, who said to have the patient follow up with her to have her EEG monitor interrogated. Discharge - Discharge Plan Condition: Stable Disposition: HOME Patient Education Materials: Recurrent Seizures in Adults (ED) Referrals: Leatha Coles MD [Medical Doctor] - Additional Instructions: Go to Dr. Coles's office at 12:00 pm today to have 24 hour EEG monitor interrogated. Follow up with Dr. Coles again in 2 days. The documentation as recorded by the Quique weller Adam accurately reflects the service I personally performed and the decisions made by me, Dylon Dean MD.
== END 2017-02-07 09:59 | disposition home or self-care (01) ==
LOC: ED 06:18
DX: G40.901 Epilepsy, unspecified, not intractable, with status epilepticus (principal); Z87.891 Personal history of nicotine dependence
CPT/HCPCS: 36415; 80053; 80177; 80183; 83605; 83735; 85025; 85610; 99283

== ENCOUNTER 2017-02-13 16:04 | Emergency (ER) | payer OTHER ==
[2017-02-13] MEDS ORDERED: NS 0.9% 1000 ML* 1,000 ML IV ONE ×2 (16:45→17:34)
[2017-02-13] MEDS ORDERED: Ondansetron INJ* 2 MG/ML VIAL IV ONE ×2 (16:52→16:59)
[2017-02-13] MEDS ORDERED: Morphine INJ* 4 MG/ML 1 ML SYRINGE IV ONE (16:59)
[2017-02-13 17:01] LABS: Hematocrit 36 % (35-47); Mean Corpuscular HGB Conc 33 g/dl (31-36); Mean Corpuscular Hemoglobin 29 pg (27-31); Mean Corpuscular Volume 87 fL (80-97); Mean Platelet Volume 7 um3 (7.4-10.4); Red Blood Count 4.17 10^6/ul (4.0-5.4); Red Cell Distribution Width 14 % (10.5-15); White Blood Count 5.8 10^3/ul (3.5-10.8)
[2017-02-13 17:17] LABS: ALT 10 U/L (7-52); AST 16 U/L (13-39); Albumin 4.6 g/dL (3.2-5.2); Alkaline Phosphatase 48 U/L (34-104); Anion Gap 12 mmol/L (2-11); BUN/Creatinine Ratio 14.5 (8-20); Blood Urea Nitrogen 9 mg/dL (6-24); C Reactive Protein < 1.00 mg/L (< 5.00); CO2 Carbon Dioxide 21 mmol/L (22-32); Calcium 9.5 mg/dL (8.6-10.3); Chloride 101 mmol/L (101-111); Creatine Kinase 58 U/L (10-223); EGFR African American 140.9 (>60); EGFR Non-African American 109.5 (>60); Globulin 2.2 g/dL (2-4); Glucose 123 mg/dL (70-100); Potassium 3.2 mmol/L (3.5-5.0); Sodium 134 mmol/L (133-145); Total Protein 6.8 g/dL (6.4-8.9)
[2017-02-13 17:29] LABS: TSH (Thyroid Stimulating Horm) 4.41 mcIU/mL (0.34-5.60)
[2017-02-13] MEDS ORDERED: LORazepam INJ* 2 MG/ML 1 ML VIAL IV ONE (17:38)
[2017-02-13] MEDS ORDERED: LORazepam INJ* 2 MG/ML 1 ML VIAL ONE (17:39)
[2017-02-13] MEDS ORDERED: HYDROcodone/ACETAMIN 5-325 MG* 1 TAB PO ONE (18:44)
[2017-02-13 19:00] LABS: Urine Bilirubin Negative (Negative); Urine Glucose Negative (Negative); Urine Nitrite Negative (Negative)
[2017-02-13] MEDS ORDERED: LORazepam TAB(*) 1 MG PO ONE (19:01)
[2017-02-13 19:14] VITALS: BP 105/71
--- NOTE | 2017-02-13 19:15 | ED ---
Quique Bolton Adam, scribed for Matti Romero MD on 02/13/17 at 1659 . Neurological HPI - HPI Summary HPI Summary: Pt is a 36 year old female presenting after a seizure. She states that she had a seizure today that lasted 1-2 minutes. She reports having multiple auras last night which prevented her from sleeping all night. She also reports significant recent stress. She denies any recent injuries or urinary symptoms. Pt states that she is currently out of Lorazepam (she normally takes 1 mg tablets 3x a day ). She also takes 4 teaspoons of Keppra at night and 3 in the morning. She is followed by Dr. Coles (Neuro). - History of Current Complaint Chief Complaint: EDSeizure Stated Complaint: SEIZURE Time Seen by Provider: 02/13/17 16:53 Hx Obtained From: Patient Onset/Duration: Sudden Onset, Started hours ago, Resolved Timing: Intermittent Episodes Lasting: - 1 or 2 minutes Onset Severity: Moderate Current Severity: None Seizure Severity: Moderate Number of Seizures: 1 Aggravating: Unknown Alleviating: Spontanious Resolution - Additional Pertinent History Primary Care Physician: [id number] - Allergy/Home Medications Allergies/Adverse Reactions: Allergies Allergy/AdvReac Type Severity Reaction Status Date / Time Bee Venom Allergy Severe Hives Verified 01/01/17 08:07 Morphine Allergy Severe Hives Verified 01/01/17 08:07 Mushroom Extract Complex Allergy Severe Hives Verified 01/01/17 08:07 PMH/Surg Hx/FS Hx/Imm Hx Endocrine/Hematology History: Reports: Hx Anemia - IV iron tx Denies: Hx Anticoagulant Therapy, Hx Diabetes, Hx Thyroid Disease Cardiovascular History: Denies: Hx Congestive Heart Failure, Hx Hypertension, Hx Pacemaker/ICD Comment Only: Other Cardiovascular Problems/Disorders - Arteriovenous malformation - Sx repair in 2008. Right atrial enlargement. Respiratory History: Denies: Hx Asthma, Hx Chronic Obstructive Pulmonary Disease (COPD) History: Denies: Hx Renal Disease Neurological History: Reports: Hx Seizures - grand mal Denies: Hx Dementia Comment Only: Other Neuro Impairments/Disorders - HX OF AVM Psychiatric History: Reports: Hx Depression Denies: Hx Substance Abuse - Surgical History Surgery Procedure, Year, and Place: AVM REPAIR. RT TEMPORAL LOBE IN 2008 [place] (removed scar tissue). 5 CSECTIONS Hx Anesthesia Reactions: No - Immunization History Date of Tetanus Vaccine: None Date of Influenza Vaccine: None Infectious Disease History: No Infectious Disease History: Denies: Hx Hepatitis, Hx Human Immunodeficiency Virus (HIV), Traveled Outside the US in Last 30 Days - Family History Known Family History: Positive: Cardiac Disease, Hypertension, Other - cancer Negative: Diabetes - Social History Occupation: Unemployed Lives: With Family - Parents Alcohol Use: None Hx Substance Use: Yes Substance Use Type: Reports: Sedatives Substance Use Comment - Amount & Last Used: Ativan Hx Tobacco Use: Yes Smoking Status (MU): Former Smoker Review of Systems Negative: Fever Neurological: Other - Seizure All Other Systems Reviewed And Are Negative: Yes Physical Exam Triage Information Reviewed: Yes Vital Signs On Initial Exam: Initial Vitals Temp Pulse Resp BP Pulse Ox 98.1 F 76 14 124/73 99 02/13/17 16:19 02/13/17 16:19 02/13/17 16:19 02/13/17 16:19 02/13/17 16:19 Vital Signs Reviewed: Yes Appearance: Positive: Well-Appearing, No Pain Distress Skin: Positive: Warm, Skin Color Reflects Adequate Perfusion, Dry Head/Face: Positive: Normal Head/Face Inspection Eyes: Positive: EOMI, CLAY ENT: Positive: Normal ENT inspection Neck: Positive: Supple, Nontender Respiratory/Lung Sounds: Positive: Clear to Auscultation, Breath Sounds Present Cardiovascular: Positive: RRR Abdomen Description: Positive: Nontender, Soft Bowel Sounds: Positive: Present Musculoskeletal: Positive: Normal, Strength/ROM Intact Neurological: Positive: Normal, Sensory/Motor Intact, Alert, Oriented to Person Place, Time Psychiatric: Positive: Affect/Mood Appropriate Diagnostics - Vital Signs Vital Signs Temp Pulse Resp BP Pulse Ox 02/13/17 16:19 98.1 F 76 14 124/73 99 - Laboratory Lab Results: Lab Results 02/13/17 02/13/17 02/13/17 Range/Units 16:27 16:27 16:27 WBC 5.8 (3.5-10.8) 10^3/ul RBC 4.17 (4.0-5.4) 10^6/ul Hgb 12.0 (12.0-16.0) g/dl Hct 36 (35-47) % MCV 87 (80-97) fL MCH 29 (27-31) pg MCHC 33 (31-36) g/dl RDW 14 (10.5-15) % Plt Count 280 (150-450) 10^3/ul MPV 7 L (7.4-10.4) um3 Neut % (Auto) 47.5 (38-83) % Lymph % (Auto) 40.0 (25-47) % [place] % (Auto) 7.9 (1-9) % Eos % (Auto) 4.2 (0-6) % Baso % (Auto) 0.4 (0-2) % Absolute Neuts (auto) 2.7 (1.5-7.7) 10^3/ul Absolute Lymphs (auto) 2.3 (1.0-4.8) 10^3/ul Absolute Monos (auto) 0.5 (0-0.8) 10^3/ul Absolute Eos (auto) 0.2 (0-0.6) 10^3/ul Absolute Basos (auto) 0 (0-0.2) 10^3/ul Absolute Nucleated RBC 0.01 10^3/ul Nucleated RBC % 0.1 INR (Anticoag Therapy) 0.99 (0.89-1.11) APTT 24.4 L (26.0-36.3) seconds Sodium 134 (133-145) mmol/L Potassium 3.2 L (3.5-5.0) mmol/L Chloride 101 (101-111) mmol/L Carbon Dioxide 21 L (22-32) mmol/L Anion Gap 12 H (2-11) mmol/L BUN 9 (6-24) mg/dL Creatinine 0.62 (0.51-0.95) mg/dL Est GFR ( Amer) 140.9 (>60) Est GFR (Non-Af Amer) 109.5 (>60) BUN/Creatinine Ratio 14.5 (8-20) Glucose 123 H (70-100) mg/dL Lactic Acid (0.5-2.0) mmol/L Calcium 9.5 (8.6-10.3) mg/dL Magnesium 2.0 (1.9-2.7) mg/dL Total Bilirubin 0.30 (0.2-1.0) mg/dL AST 16 (13-39) U/L ALT 10 (7-52) U/L Alkaline Phosphatase 48 (34-104) U/L Total Creatine Kinase 58 (10-223) U/L CK-MB (CK-2) 0.8 (0.6-6.3) ng/mL C-Reactive Protein < 1.00 (< 5.00) mg/L Total Protein 6.8 (6.4-8.9) g/dL Albumin 4.6 (3.2-5.2) g/dL Globulin 2.2 (2-4) g/dL Albumin/Globulin Ratio 2.1 (1-3) TSH 4.41 (0.34-5.60) mcIU/mL Beta HCG, Quant < 0.60 mIU/mL Urine Color Urine Appearance Urine pH (5-9) Ur Specific [place] (1.010-1.030) Urine Protein (Negative) Urine Ketones (Negative) Urine Blood (Negative) Urine Nitrate (Negative) Urine Bilirubin (Negative) Urine Urobilinogen (Negative) Ur Leukocyte Esterase (Negative) Urine Glucose (Negative) 02/13/17 02/13/17 Range/Units 16:27 18:27 WBC (3.5-10.8) 10^3/ul RBC (4.0-5.4) 10^6/ul Hgb (12.0-16.0) g/dl Hct (35-47) % MCV (80-97) fL MCH (27-31) pg MCHC (31-36) g/dl RDW (10.5-15) % Plt Count (150-450) 10^3/ul MPV (7.4-10.4) um3 Neut % (Auto) (38-83) % Lymph % (Auto) (25-47) % [place] % (Auto) (1-9) % Eos % (Auto) (0-6) % Baso % (Auto) (0-2) % Absolute Neuts (auto) (1.5-7.7) 10^3/ul Absolute Lymphs (auto) (1.0-4.8) 10^3/ul Absolute Monos (auto) (0-0.8) 10^3/ul Absolute Eos (auto) (0-0.6) 10^3/ul Absolute Basos (auto) (0-0.2) 10^3/ul Absolute Nucleated RBC 10^3/ul Nucleated RBC % INR (Anticoag Therapy) (0.89-1.11) APTT (26.0-36.3) seconds Sodium (133-145) mmol/L Potassium (3.5-5.0) mmol/L Chloride (101-111) mmol/L Carbon Dioxide (22-32) mmol/L Anion Gap (2-11) mmol/L BUN (6-24) mg/dL Creatinine (0.51-0.95) mg/dL Est GFR ( Amer) (>60) Est GFR (Non-Af Amer) (>60) BUN/Creatinine Ratio (8-20) Glucose (70-100) mg/dL Lactic Acid 5.3 H* (0.5-2.0) mmol/L Calcium (8.6-10.3) mg/dL Magnesium (1.9-2.7) mg/dL Total Bilirubin (0.2-1.0) mg/dL AST (13-39) U/L ALT (7-52) U/L Alkaline Phosphatase (34-104) U/L Total Creatine Kinase (10-223) U/L CK-MB (CK-2) (0.6-6.3) ng/mL C-Reactive Protein (< 5.00) mg/L Total Protein (6.4-8.9) g/dL Albumin (3.2-5.2) g/dL Globulin (2-4) g/dL Albumin/Globulin Ratio (1-3) TSH (0.34-5.60) mcIU/mL Beta HCG, Quant mIU/mL Urine Color Yellow Urine Appearance Clear Urine pH 6.0 (5-9) Ur Specific [place] 1.011 (1.010-1.030) Urine Protein Negative (Negative) Urine Ketones Negative (Negative) Urine Blood Negative (Negative) Urine Nitrate Negative (Negative) Urine Bilirubin Negative (Negative) Urine Urobilinogen Negative (Negative) Ur Leukocyte Esterase Negative (Negative) Urine Glucose Negative (Negative) Result Diagrams: 02/13/17 16:27 02/13/17 16:27 Lab Statement: Any lab studies that have been ordered have been reviewed, and results considered in the medical decision making process. - Additional Comments Diagnostic Additional Comments: Lactic Acid - 5.3 Re-Evaluation - Re-Evaluation First Eval Re-Evaluation Time: 17:38 - Patient has an aura involving copper smell, metallic taste, pulsating in ear, and weakness. She thinks she is going to have a seizure. Ativan will be given. Change: Worse Second Eval Re-Evaluation Time: 19:07 - Patient is feeling better and ready to be discharged. Change: Improved Course/Dx - Course Assessment/Plan: WELL IN ED. DISCUSSED RESULTS WITH PATIENT. DISCHARGE HOME STABLE. SHE IS IN COMMUNICATION WITH HER NEUROLOGIST ABOUT ANTI SEIZURE MEDICATION MANAGEMENT. - Diagnoses Provider Diagnoses: Epilepsy Discharge - Discharge Plan Condition: Stable Disposition: HOME Prescriptions: Clindamycin Cap(NF) [Cleocin 300 mg Cap(NF)] 300 mg PO Q6H #40 cap LORazepam TAB(*) [Ativan 1 MG TAB (*)] 1 mg PO TID PRN #15 tab MDD 3 PRN Reason: Anxiety Ondansetron ODT TAB* [Zofran 4 MG Odt TAB*] 4 mg PO Q6H PRN #10 tab.odt PRN Reason: Nausea Patient Education Materials: Epilepsy (ED) Referrals: Madhavi Mayorga MD [Primary Care Provider] - Additional Instructions: FOLLOW UP WITH YOUR DOCTOR. RETURN TO THE EMERGENCY DEPARTMENT FOR ANY WORSENING OF YOUR CONDITION OR QUESTIONS OR CONCERNS. The documentation as recorded by the Quique weller Adam accurately reflects the service I personally performed and the decisions made by me, Matti Romero MD.
[2017-02-15 14:35] LABS: Levetiracetam 32.3 mcg/mL
== END 2017-02-13 19:14 | disposition home or self-care (01) ==
LOC: ED 16:04
DX: G40.909 Epilepsy, unspecified, not intractable, without status epilepticus (principal); Z87.891 Personal history of nicotine dependence
CPT/HCPCS: 36415; 80053; 80177; 80183; 81003; 82550; 82553; 83605; 83735; 84443; 84702; 85025; 85610; 85730; 86140; 96374; 96375; 99285; J2060; J2405

== ENCOUNTER 2017-03-11 20:59 | Emergency (ER) | payer OTHER ==
[2017-03-12 00:46] VITALS: BP 106/77
--- NOTE | 2017-03-12 02:15 | ED ---
Quique Bolton Adam, scribed for Cortez Wilkins MD on 03/11/17 at 2355 . Neurological HPI - HPI Summary HPI Summary: Pt is a 36 year old female presenting with dizziness and seizure auras after hitting her head. She states that she hit the back right side of her head and became dizzy immediately afterwards. She has also developed multiple auras which have been intermittent since she hit her head. She states that she is still dizzy right now. She denies any LOC. She is on a new sz medication. She spoke with Dr. Solorio (neurology) who told her to come to the ED if the dizziness got worse. - History of Current Complaint Chief Complaint: EDHeadInjury Stated Complaint: HEAD INJURY/DIZZINESS Time Seen by Provider: 03/11/17 23:54 Hx Obtained From: Patient Onset/Duration: Sudden Onset, Started hours ago, Still Present Timing: Constant Onset Severity: Moderate Current Severity: Moderate Headache Location: Occipital (Right) Pain Intensity: 10 Pain Scale Used: 0-10 Numeric Character: Dizzy, Other: - Seizure auras Aggravating: Trauma - Hitting her head Alleviating: Nothing - Additional Pertinent History Primary Care Physician: [id number] - Allergy/Home Medications Allergies/Adverse Reactions: Allergies Allergy/AdvReac Type Severity Reaction Status Date / Time Bee Venom Allergy Severe Hives Verified 02/13/17 19:20 Morphine Allergy Severe Hives Verified 02/13/17 19:20 Mushroom Extract Complex Allergy Severe Hives Verified 02/13/17 19:20 PMH/Surg Hx/FS Hx/Imm Hx Endocrine/Hematology History: Reports: Hx Anemia - IV iron tx Denies: Hx Anticoagulant Therapy, Hx Diabetes, Hx Thyroid Disease Cardiovascular History: Denies: Hx Congestive Heart Failure, Hx Hypertension, Hx Pacemaker/ICD Comment Only: Other Cardiovascular Problems/Disorders - Arteriovenous malformation - Sx repair in 2008. Right atrial enlargement. Respiratory History: Denies: Hx Asthma, Hx Chronic Obstructive Pulmonary Disease (COPD) History: Denies: Hx Renal Disease Neurological History: Reports: Hx Seizures - grand mal Denies: Hx Dementia Comment Only: Other Neuro Impairments/Disorders - HX OF AVM Psychiatric History: Reports: Hx Depression Denies: Hx Substance Abuse - Surgical History Surgery Procedure, Year, and Place: AVM REPAIR. RT TEMPORAL LOBE IN 2008 [place] (removed scar tissue). 5 CSECTIONS Hx Anesthesia Reactions: No - Immunization History Date of Tetanus Vaccine: None Date of Influenza Vaccine: None Infectious Disease History: No Infectious Disease History: Denies: Hx Hepatitis, Hx Human Immunodeficiency Virus (HIV), Traveled Outside the [place] in Last 30 Days - Family History Known Family History: Positive: Cardiac Disease, Hypertension, Other - cancer Negative: Diabetes - Social History Occupation: Unemployed Lives: With Family - Parents Alcohol Use: None Hx Substance Use: Yes Substance Use Type: Reports: Sedatives Substance Use Comment - Amount & Last Used: Ativan Hx Tobacco Use: Yes Smoking Status (MU): Former Smoker Review of Systems Negative: Fever Neurological: Other - Dizziness, seizure aura Positive: Headache - Back right side of head. Negative: Syncope All Other Systems Reviewed And Are Negative: Yes Physical Exam - Summary Physical Exam Summary: The patient is well-nourished in no acute distress and in no acute pain. The skin is warm and dry and skin color reflects adequate perfusion. HEENT: The head has an indentation from a previous craniotomy. It is not soft and there are no step-offs. No evidence of skull fracture. The pupils are equal and reactive. The conjunctivae are clear and without drainage. Nares are patent and without drainage. Mouth reveals moist mucous membranes and the throat is without erythema and exudate. The external ears are intact. The ear canals are patent and without drainage. The tympanic membranes are intact. Neck is supple with full range of motion and non-tender. There are no carotid bruits. There is no neck vein distension. Respiratory: Chest is non-tender. Lungs are clear to auscultation and breath sounds are symmetrical and equal. Cardiovascular: Heart is regular rate and rhythm. There is no murmur or rub auscultated. There is no peripheral edema and pulses are symmetrical and equal. Abdomen: The abdomen is soft and non-tender. There are normal bowel sounds heard in all four quadrants and there is no organomegaly palpated. Musculoskeletal: There is no back pain noted. Extremities are non-tender with full range of motion. There is good capillary refill. There is no peripheral edema or calf tenderness elicited. Neurological: Patient is alert and oriented to person, place and time. The patient has symmetrical motor strength in all four extremities. Cranial nerves are grossly intact. Deep tendon reflexes are symmetrical and equal in all four extremities. Psychiatric: The patient has an appropriate affect and does not exhibit any anxiety or depression. Triage Information Reviewed: Yes Vital Signs On Initial Exam: Initial Vitals Temp Pulse Resp BP Pulse Ox 98 F 75 15 122/84 100 03/11/17 21:15 03/11/17 21:15 03/11/17 21:15 03/11/17 21:15 03/11/17 21:15 Vital Signs Reviewed: Yes - [place] Coma Scale Coma Scale Total: 15 Diagnostics - Vital Signs Vital Signs Temp Pulse Resp BP Pulse Ox 03/11/17 22:49 98 F 75 15 122/84 100 03/11/17 21:15 98 F 75 15 122/84 100 - Laboratory Lab Statement: Any lab studies that have been ordered have been reviewed, and results considered in the medical decision making process. Course/Dx - Course Course Of Treatment: Patient with known seizure disorder. She wants to go home. She has Lorazepam at home. She will follow up with her neurologist. - Diagnoses Provider Diagnoses: Minor head trauma, Dizziness, Seizure disorder Discharge - Discharge Plan Condition: Stable Disposition: HOME Patient Education Materials: Head Injury (ED), Recurrent Seizures in Adults (ED ), Dizziness (ED) Referrals: Madhavi Mayorga MD [Primary Care Provider] - Leatha Coles MD [Medical Doctor] - Additional Instructions: Follow up with Dr. Coles (Neurology). The documentation as recorded by the Quique weller Adam accurately reflects the service I personally performed and the decisions made by me, Cortez Wilkins MD.
== END 2017-03-12 00:45 | disposition home or self-care (01) ==
LOC: ED 20:59
DX: G40.909 Epilepsy, unspecified, not intractable, without status epilepticus (principal); R42 Dizziness and giddiness; Z87.891 Personal history of nicotine dependence
CPT/HCPCS: 99282

== ENCOUNTER 2017-03-14 11:28 | Emergency (ER) | payer OTHER ==
[2017-03-14] MEDS ORDERED: LORazepam INJ* 2 MG/ML 1 ML VIAL IV ONE (13:13)
[2017-03-14 13:38] LABS: Hematocrit 34 % (35-47); Hemoglobin 11.3 g/dl (12.0-16.0); Mean Corpuscular HGB Conc 33 g/dl (31-36); Mean Corpuscular Hemoglobin 29 pg (27-31); Mean Corpuscular Volume 86 fL (80-97); Mean Platelet Volume 8 um3 (7.4-10.4); Red Blood Count 3.97 10^6/ul (4.0-5.4); Red Cell Distribution Width 14 % (10.5-15); White Blood Count 7.2 10^3/ul (3.5-10.8)
[2017-03-14 13:45] LABS: Urine Bacteria Absent (Absent); Urine Bilirubin Negative (Negative); Urine Glucose Negative (Negative); Urine Nitrite Negative (Negative)
[2017-03-14 13:50] LABS: Albumin 4.2 g/dL (3.2-5.2); Calcium 8.9 mg/dL (8.6-10.3); EGFR African American 189.3 (>60); EGFR Non-African American 147.2 (>60); Globulin 2.1 g/dL (2-4); Total Bilirubin 0.3 mg/dL (0.2-1.0); Total Protein 6.3 g/dL (6.4-8.9)
[2017-03-14 14:39] LABS: Potassium 3.4 mmol/L (3.5-5.0)
[2017-03-14 15:57] VITALS: BP 90/53
--- NOTE | 2017-03-14 18:00 | ED ---
Marcelino Bolton Billy, scribed for Marvin Kinsey MD on 03/14/17 at 1457 . Neurological HPI - HPI Summary HPI Summary: The patient is a 36 year-old female with a history of seizure coming to [facility] for evaluation of multiple auras this morning. The patient is on Keppra. She was recently evaluated by Dr. Slater during one of her auras, and showed some unusual activity on EEG. She was prescribed Ativan PRN by Dr. Slater, but has yet to fill this prescription. - History of Current Complaint Chief Complaint: EDGeneral Stated Complaint: PENDING SEUZURES Time Seen by Provider: 03/14/17 13:09 Hx Obtained From: Patient Onset/Duration: Gradual Onset, Started hours ago Timing: Constant Onset Severity: Moderate Current Severity: Moderate Pain Intensity: 10 Pain Scale Used: 0-10 Numeric Aggravating: Unknown Alleviating: Unknown - Additional Pertinent History Primary Care Physician: CORAL - Allergy/Home Medications Allergies/Adverse Reactions: Allergies Allergy/AdvReac Type Severity Reaction Status Date / Time Bee Venom Allergy Severe Hives Verified 03/14/17 12:00 Morphine Allergy Severe Hives Verified 03/14/17 12:00 Mushroom Extract Complex Allergy Severe Hives Verified 03/14/17 12:00 PMH/Surg Hx/FS Hx/Imm Hx Endocrine/Hematology History: Reports: Hx Anemia - IV iron tx Denies: Hx Anticoagulant Therapy, Hx Diabetes, Hx Thyroid Disease Cardiovascular History: Denies: Hx Congestive Heart Failure, Hx Hypertension, Hx Pacemaker/ICD Comment Only: Other Cardiovascular Problems/Disorders - Arteriovenous malformation - Sx repair in 2008. Right atrial enlargement. Respiratory History: Denies: Hx Asthma, Hx Chronic Obstructive Pulmonary Disease (COPD) History: Denies: Hx Renal Disease Neurological History: Reports: Hx Seizures - grand mal Denies: Hx Dementia Comment Only: Other Neuro Impairments/Disorders - HX OF AVM Psychiatric History: Reports: Hx Depression Denies: Hx Substance Abuse - Surgical History Surgery Procedure, Year, and Place: AVM REPAIR. RT TEMPORAL LOBE IN 2008 [place] (removed scar tissue). 5 CSECTIONS Hx Anesthesia Reactions: No - Immunization History Date of Tetanus Vaccine: None Date of Influenza Vaccine: None Infectious Disease History: No Infectious Disease History: Denies: Hx Hepatitis, Hx Human Immunodeficiency Virus (HIV), Traveled Outside the [place] in Last 30 Days - Family History Known Family History: Positive: Cardiac Disease, Hypertension, Other - cancer Negative: Diabetes - Social History Alcohol Use: None Hx Substance Use: Yes Substance Use Type: Reports: None, Sedatives Substance Use Comment - Amount & Last Used: Ativan Hx Tobacco Use: Yes Smoking Status (MU): Former Smoker Review of Systems Negative: Fever Neurological: Other - "auras" see HPI All Other Systems Reviewed And Are Negative: Yes Physical Exam Triage Information Reviewed: Yes Vital Signs On Initial Exam: Initial Vitals Temp Pulse Resp BP Pulse Ox 98.8 F 91 13 117/83 99 03/14/17 12:04 03/14/17 12:04 03/14/17 12:04 03/14/17 12:04 03/14/17 12:04 Vital Signs Reviewed: Yes Appearance: Positive: Well-Appearing, No Pain Distress Skin: Positive: Warm, Skin Color Reflects Adequate Perfusion, Dry Head/Face: Positive: Normal Head/Face Inspection Eyes: Positive: Normal ENT: Positive: Normal ENT inspection Neck: Positive: Supple, Nontender Respiratory/Lung Sounds: Positive: Clear to Auscultation, Breath Sounds Present Cardiovascular: Positive: RRR Abdomen Description: Positive: Nontender, Soft Musculoskeletal: Positive: Normal Neurological: Positive: Normal, Sensory/Motor Intact, Alert, Oriented to Person Place, Time Psychiatric: Positive: Affect/Mood Appropriate Diagnostics - Vital Signs Vital Signs Temp Pulse Resp BP Pulse Ox 03/14/17 13:33 12 03/14/17 13:29 15 03/14/17 13:28 103/64 03/14/17 12:04 98.8 F 91 13 117/83 99 - Laboratory Lab Results: Lab Results 03/14/17 03/14/17 03/14/17 Range/Units 12:10 13:29 13:29 WBC 7.2 (3.5-10.8) 10^3/ul RBC 3.97 L (4.0-5.4) 10^6/ul Hgb 11.3 L (12.0-16.0) g/dl Hct 34 L (35-47) % MCV 86 (80-97) fL MCH 29 (27-31) pg MCHC 33 (31-36) g/dl RDW 14 (10.5-15) % Plt Count 277 (150-450) 10^3/ul MPV 8 (7.4-10.4) um3 Neut % (Auto) 69.5 (38-83) % Lymph % (Auto) 21.8 L (25-47) % [place] % (Auto) 7.0 (1-9) % Eos % (Auto) 0.6 (0-6) % Baso % (Auto) 1.1 (0-2) % Absolute Neuts (auto) 5.0 (1.5-7.7) 10^3/ul Absolute Lymphs (auto) 1.6 (1.0-4.8) 10^3/ul Absolute Monos (auto) 0.5 (0-0.8) 10^3/ul Absolute Eos (auto) 0 (0-0.6) 10^3/ul Absolute Basos (auto) 0.1 (0-0.2) 10^3/ul Absolute Nucleated RBC 0.01 10^3/ul Nucleated RBC % 0.1 Sodium 137 (133-145) mmol/L Potassium 3.4 L (3.5-5.0) mmol/L Chloride 105 (101-111) mmol/L Carbon Dioxide 26 (22-32) mmol/L Anion Gap 6 (2-11) mmol/L BUN 12 (6-24) mg/dL Creatinine 0.48 L (0.51-0.95) mg/dL Est GFR ( Amer) 189.3 (>60) Est GFR (Non-Af Amer) 147.2 (>60) BUN/Creatinine Ratio 25.0 H (8-20) Glucose 90 (70-100) mg/dL Lactic Acid (0.5-2.0) mmol/L Calcium 8.9 (8.6-10.3) mg/dL Magnesium 2.0 (1.9-2.7) mg/dL Total Bilirubin 0.30 (0.2-1.0) mg/dL AST 17 (13-39) U/L ALT 9 (7-52) U/L Alkaline Phosphatase 40 (34-104) U/L Total Protein 6.3 L (6.4-8.9) g/dL Albumin 4.2 (3.2-5.2) g/dL Globulin 2.1 (2-4) g/dL Albumin/Globulin Ratio 2.0 (1-3) Urine Color Yellow Urine Appearance Clear Urine pH 7.0 (5-9) Ur Specific [place] 1.017 (1.010-1.030) Urine Protein Negative (Negative) Urine Ketones Negative (Negative) Urine Blood Negative (Negative) Urine Nitrate Negative (Negative) Urine Bilirubin Negative (Negative) Urine Urobilinogen Negative (Negative) Ur Leukocyte Esterase Trace H (Negative) Urine WBC (Auto) Trace(0-5/hpf) (Absent) Urine RBC (Auto) Absent (Absent) Ur Squamous Epith Cells Present H (Absent) Urine Bacteria Absent (Absent) Urine Glucose Negative (Negative) 03/14/17 Range/Units 13:29 WBC (3.5-10.8) 10^3/ul RBC (4.0-5.4) 10^6/ul Hgb (12.0-16.0) g/dl Hct (35-47) % MCV (80-97) fL MCH (27-31) pg MCHC (31-36) g/dl RDW (10.5-15) % Plt Count (150-450) 10^3/ul MPV (7.4-10.4) um3 Neut % (Auto) (38-83) % Lymph % (Auto) (25-47) % [place] % (Auto) (1-9) % Eos % (Auto) (0-6) % Baso % (Auto) (0-2) % Absolute Neuts (auto) (1.5-7.7) 10^3/ul Absolute Lymphs (auto) (1.0-4.8) 10^3/ul Absolute Monos (auto) (0-0.8) 10^3/ul Absolute Eos (auto) (0-0.6) 10^3/ul Absolute Basos (auto) (0-0.2) 10^3/ul Absolute Nucleated RBC 10^3/ul Nucleated RBC % Sodium (133-145) mmol/L Potassium (3.5-5.0) mmol/L Chloride (101-111) mmol/L Carbon Dioxide (22-32) mmol/L Anion Gap (2-11) mmol/L BUN (6-24) mg/dL Creatinine (0.51-0.95) mg/dL Est GFR ( Amer) (>60) Est GFR (Non-Af Amer) (>60) BUN/Creatinine Ratio (8-20) Glucose (70-100) mg/dL Lactic Acid 0.6 (0.5-2.0) mmol/L Calcium (8.6-10.3) mg/dL Magnesium (1.9-2.7) mg/dL Total Bilirubin (0.2-1.0) mg/dL AST (13-39) U/L ALT (7-52) U/L Alkaline Phosphatase (34-104) U/L Total Protein (6.4-8.9) g/dL Albumin (3.2-5.2) g/dL Globulin (2-4) g/dL Albumin/Globulin Ratio (1-3) Urine Color Urine Appearance Urine pH (5-9) Ur Specific [place] (1.010-1.030) Urine Protein (Negative) Urine Ketones (Negative) Urine Blood (Negative) Urine Nitrate (Negative) Urine Bilirubin (Negative) Urine Urobilinogen (Negative) Ur Leukocyte Esterase (Negative) Urine WBC (Auto) (Absent) Urine RBC (Auto) (Absent) Ur Squamous Epith Cells (Absent) Urine Bacteria (Absent) Urine Glucose (Negative) Result Diagrams: 03/14/17 13:29 03/14/17 13:29 Lab Statement: Any lab studies that have been ordered have been reviewed, and results considered in the medical decision making process. Course/Dx - Course Course Of Treatment: Belinda Mendez came in C/O having rainbow auras all morning. She apparently has had eeg changes in the past with these auras and Dr. Slater recommended giving her ativan which Dr. Slater has just prescribed. She did improve and her W/U was otherwise negative. - Diagnoses Provider Diagnoses: Seizure Discharge - Discharge Plan Condition: Stable Disposition: HOME Patient Education Materials: Recurrent Seizures in Adults (ED) Referrals: Madhavi Mayorga MD [Primary Care Provider] - Leatha Slater MD [Medical Doctor] - Additional Instructions: FOLLOW UP WITH DR. SLATER (NEUROLOGY). The documentation as recorded by the Marcelino weller Billy accurately reflects the service I personally performed and the decisions made by me, Marvin Kinsey MD.
== END 2017-03-14 15:57 | disposition home or self-care (01) ==
LOC: ED 11:28
DX: R56.9 Unspecified convulsions (principal)
CPT/HCPCS: 36415; 80053; 81003; 81015; 83605; 83735; 85025; 87086; 96374; 99283; J2060

== ENCOUNTER 2017-03-25 07:34 | Emergency (ER) | payer OTHER ==
[2017-03-25] MEDS ORDERED: NS 0.9% 1000 ML* 2,000 ML IV ONE (08:19)
[2017-03-25] MEDS ORDERED: LORazepam INJ* 2 MG/ML 1 ML VIAL IV ONE (08:19)
[2017-03-25] MEDS ORDERED: Ondansetron INJ* 2 MG/ML VIAL IV ONE (08:19)
[2017-03-25 08:58] LABS: Urine Bacteria Absent (Absent); Urine Bilirubin Negative (Negative); Urine Glucose Negative (Negative); Urine Nitrite Negative (Negative)
[2017-03-25 09:08] LABS: Hematocrit 38 % (35-47); Hemoglobin 12.5 g/dl (12.0-16.0); Mean Corpuscular HGB Conc 33 g/dl (31-36); Mean Corpuscular Hemoglobin 28 pg (27-31); Mean Corpuscular Volume 85 fL (80-97); Mean Platelet Volume 8 um3 (7.4-10.4); Red Blood Count 4.38 10^6/ul (4.0-5.4); Red Cell Distribution Width 14 % (10.5-15); White Blood Count 8.6 10^3/ul (3.5-10.8)
[2017-03-25 09:20] LABS: ALT 14 U/L (7-52); AST 19 U/L (13-39); Albumin 4.6 g/dL (3.2-5.2); Alkaline Phosphatase 52 U/L (34-104); Anion Gap 8 mmol/L (2-11); BUN/Creatinine Ratio 17.3 (8-20); Blood Urea Nitrogen 9 mg/dL (6-24); CO2 Carbon Dioxide 25 mmol/L (22-32); Calcium 9.6 mg/dL (8.6-10.3); Chloride 107 mmol/L (101-111); EGFR African American 172.6 (>60); EGFR Non-African American 134.2 (>60); Globulin 2.6 g/dL (2-4); Glucose 94 mg/dL (70-100); Magnesium 2.2 mg/dL (1.9-2.7); Potassium 3.8 mmol/L (3.5-5.0); Sodium 140 mmol/L (133-145); Total Protein 7.2 g/dL (6.4-8.9)
[2017-03-25 09:44] LABS: Alcohol < 10 mg/dL (<10)
[2017-03-25 11:09] VITALS: BP 91/52
--- NOTE | 2017-03-25 12:50 | ED ---
I, Oh,Soleonardo, scribed for Cortez Wilkins MD on 03/25/17 at 0824 . Neurological HPI - HPI Summary HPI Summary: This 36 y/o female presents to ED for possible, unwitnessed, seizure last night. Pt reports EtOH consumption last night which includes 3 Tequila shots, duarte bomb, and fireball. She also reports increased recent stress due to her aunt going [place] treatment. "It took a huge toll on me". Pt took lorazepam MANAGER TITLE and called ambulance. Positive increased anxiety and 1x episode of n/v. PMHx does include known epilepsy that is controlled with Trileptal and Keppra with last dose this morning. - History of Current Complaint Chief Complaint: EDSeizure Stated Complaint: POSS SEIZURE Time Seen by Provider: 03/25/17 08:05 Hx Obtained From: Patient, Medical Records Timing: Intermittent Episodes Lasting: Pain Intensity: 0 Pain Scale Used: 0-10 Numeric - Additional Pertinent History Primary Care Physician: CORAL - Allergy/Home Medications Allergies/Adverse Reactions: Allergies Allergy/AdvReac Type Severity Reaction Status Date / Time Bee Venom Allergy Severe Hives Verified 03/14/17 12:00 Morphine Allergy Severe Hives Verified 03/14/17 12:00 Mushroom Extract Complex Allergy Severe Hives Verified 03/14/17 12:00 PMH/Surg Hx/FS Hx/Imm Hx Endocrine/Hematology History: Reports: Hx Anemia - IV iron tx Denies: Hx Anticoagulant Therapy, Hx Diabetes, Hx Thyroid Disease Cardiovascular History: Denies: Hx Congestive Heart Failure, Hx Hypertension, Hx Pacemaker/ICD Comment Only: Other Cardiovascular Problems/Disorders - Arteriovenous malformation - Sx repair in 2008. Right atrial enlargement. Respiratory History: Denies: Hx Asthma, Hx Chronic Obstructive Pulmonary Disease (COPD) History: Denies: Hx Renal Disease Neurological History: Reports: Hx Seizures - grand mal Denies: Hx Dementia Comment Only: Other Neuro Impairments/Disorders - HX OF AVM Psychiatric History: Reports: Hx Depression Denies: Hx Substance Abuse - Surgical History Surgery Procedure, Year, and Place: AVM REPAIR. RT TEMPORAL LOBE IN 2008 [place] (removed scar tissue). 5 CSECTIONS Hx Anesthesia Reactions: No - Immunization History Date of Tetanus Vaccine: None Date of Influenza Vaccine: None Infectious Disease History: Denies: Hx Hepatitis, Hx Human Immunodeficiency Virus (HIV), Traveled Outside the [place] in Last 30 Days - Family History Known Family History: Positive: Cardiac Disease, Hypertension, Other - cancer Negative: Diabetes - Social History Alcohol Use: None Hx Substance Use: Yes Substance Use Type: Reports: Sedatives Substance Use Comment - Amount & Last Used: Ativan Hx Tobacco Use: Yes Smoking Status (MU): Former Smoker Review of Systems Negative: Fever Positive: Vomiting - "threw up my Trileptal", Nausea Negative: dysuria Neurological: Other - Positive for possible seizure, unwitnessed Positive: Anxious, Depressed, Other - Positive EtOH consumption last night All Other Systems Reviewed And Are Negative: Yes Physical Exam - Summary Physical Exam Summary: The patient is well-nourished in no acute distress and in no acute pain. The skin is warm and dry and skin color reflects adequate perfusion. no decreased turgor HEENT: The head is normocephalic and atraumatic. The pupils are equal and reactive. The conjunctivae are clear and without drainage. Nares are patent and without drainage. Oral mucosa is dry. The external ears are intact. The ear canals are patent and without drainage. The tympanic membranes are intact. Neck is supple with full range of motion and non-tender. There are no carotid bruits. There is no neck vein distension. Respiratory: Chest is non-tender. Lungs are clear to auscultation and breath sounds are symmetrical and equal. Cardiovascular: Hear is regular rate and rhythm. There is no murmur or rub auscultated. There is no peripheral edema and pulses are symmetrical and equal. Abdomen: The abdomen is soft and non-tender. There are normal bowel sounds heard in all four quadrants and there is no organomegaly palpated. Musculoskeletal: There is no back pain noted. Extremities are non-tender with full range of motion. There is good capillary refill. There is no peripheral edema or calf tenderness elicited. Neurological: Patient is alert and oriented to person, place and time. The patient has symmetrical motor strength in all four extremities. Cranial nerves are grossly intact. Deep tendon reflexes are symmetrical and equal in all four extremities. Psychiatric: The patient is noted mildly depressed. Triage Information Reviewed: Yes Vital Signs On Initial Exam: Initial Vitals Temp Pulse Resp BP Pulse Ox 98.5 F 68 20 104/80 99 03/25/17 07:39 03/25/17 07:39 03/25/17 07:39 03/25/17 07:39 03/25/17 07:39 Vital Signs Reviewed: Yes - Wolfgang Coma Scale Coma Scale Total: 15 Diagnostics - Vital Signs Vital Signs Temp Pulse Resp BP Pulse Ox 03/25/17 07:42 98.5 F 68 20 96/78 98 03/25/17 07:39 98.5 F 68 20 104/80 99 - Laboratory Lab Results: Lab Results 03/25/17 03/25/17 03/25/17 Range/Units 08:38 08:55 08:55 WBC 8.6 (3.5-10.8) 10^3/ul RBC 4.38 (4.0-5.4) 10^6/ul Hgb 12.5 (12.0-16.0) g/dl Hct 38 (35-47) % MCV 85 (80-97) fL MCH 28 (27-31) pg MCHC 33 (31-36) g/dl RDW 14 (10.5-15) % Plt Count 287 (150-450) 10^3/ul MPV 8 (7.4-10.4) um3 Neut % (Auto) 70.0 (38-83) % Lymph % (Auto) 20.5 L (25-47) % [place] % (Auto) 8.4 (1-9) % Eos % (Auto) 0.5 (0-6) % Baso % (Auto) 0.6 (0-2) % Absolute Neuts (auto) 6.0 (1.5-7.7) 10^3/ul Absolute Lymphs (auto) 1.8 (1.0-4.8) 10^3/ul Absolute Monos (auto) 0.7 (0-0.8) 10^3/ul Absolute Eos (auto) 0 (0-0.6) 10^3/ul Absolute Basos (auto) 0 (0-0.2) 10^3/ul Absolute Nucleated RBC 0.01 10^3/ul Nucleated RBC % 0.1 INR (Anticoag Therapy) 0.97 (0.89-1.11) Sodium (133-145) mmol/L Potassium (3.5-5.0) mmol/L Chloride (101-111) mmol/L Carbon Dioxide (22-32) mmol/L Anion Gap (2-11) mmol/L BUN (6-24) mg/dL Creatinine (0.51-0.95) mg/dL Est GFR ( Amer) (>60) Est GFR (Non-Af Amer) (>60) BUN/Creatinine Ratio (8-20) Glucose (70-100) mg/dL Lactic Acid (0.5-2.0) mmol/L Calcium (8.6-10.3) mg/dL Magnesium (1.9-2.7) mg/dL Total Bilirubin (0.2-1.0) mg/dL AST (13-39) U/L ALT (7-52) U/L Alkaline Phosphatase (34-104) U/L Total Protein (6.4-8.9) g/dL Albumin (3.2-5.2) g/dL Globulin (2-4) g/dL Albumin/Globulin Ratio (1-3) Urine Color Yellow Urine Appearance Cloudy Urine pH 8.0 (5-9) Ur Specific [place] 1.018 (1.010-1.030) Urine Protein Negative (Negative) Urine Ketones Negative (Negative) Urine Blood Negative (Negative) Urine Nitrate Negative (Negative) Urine Bilirubin Negative (Negative) Urine Urobilinogen Negative (Negative) Ur Leukocyte Esterase Trace H (Negative) Urine WBC (Auto) Trace(0-5/hpf) (Absent) Urine RBC (Auto) Absent (Absent) Ur Squamous Epith Cells Present H (Absent) Urine Bacteria Absent (Absent) Urine Glucose Negative (Negative) Serum Alcohol (<10) mg/dL 03/25/17 03/25/17 Range/Units 08:55 08:55 WBC (3.5-10.8) 10^3/ul RBC (4.0-5.4) 10^6/ul Hgb (12.0-16.0) g/dl Hct (35-47) % MCV (80-97) fL MCH (27-31) pg MCHC (31-36) g/dl RDW (10.5-15) % Plt Count (150-450) 10^3/ul MPV (7.4-10.4) um3 Neut % (Auto) (38-83) % Lymph % (Auto) (25-47) % [place] % (Auto) (1-9) % Eos % (Auto) (0-6) % Baso % (Auto) (0-2) % Absolute Neuts (auto) (1.5-7.7) 10^3/ul Absolute Lymphs (auto) (1.0-4.8) 10^3/ul Absolute Monos (auto) (0-0.8) 10^3/ul Absolute Eos (auto) (0-0.6) 10^3/ul Absolute Basos (auto) (0-0.2) 10^3/ul Absolute Nucleated RBC 10^3/ul Nucleated RBC % INR (Anticoag Therapy) (0.89-1.11) Sodium 140 (133-145) mmol/L Potassium 3.8 (3.5-5.0) mmol/L Chloride 107 (101-111) mmol/L Carbon Dioxide 25 (22-32) mmol/L Anion Gap 8 (2-11) mmol/L BUN 9 (6-24) mg/dL Creatinine 0.52 (0.51-0.95) mg/dL Est GFR ( Amer) 172.6 (>60) Est GFR (Non-Af Amer) 134.2 (>60) BUN/Creatinine Ratio 17.3 (8-20) Glucose 94 (70-100) mg/dL Lactic Acid 0.9 (0.5-2.0) mmol/L Calcium 9.6 (8.6-10.3) mg/dL Magnesium 2.2 (1.9-2.7) mg/dL Total Bilirubin 0.20 (0.2-1.0) mg/dL AST 19 (13-39) U/L ALT 14 (7-52) U/L Alkaline Phosphatase 52 (34-104) U/L Total Protein 7.2 (6.4-8.9) g/dL Albumin 4.6 (3.2-5.2) g/dL Globulin 2.6 (2-4) g/dL Albumin/Globulin Ratio 1.8 (1-3) Urine Color Urine Appearance Urine pH (5-9) Ur Specific [place] (1.010-1.030) Urine Protein (Negative) Urine Ketones (Negative) Urine Blood (Negative) Urine Nitrate (Negative) Urine Bilirubin (Negative) Urine Urobilinogen (Negative) Ur Leukocyte Esterase (Negative) Urine WBC (Auto) (Absent) Urine RBC (Auto) (Absent) Ur Squamous Epith Cells (Absent) Urine Bacteria (Absent) Urine Glucose (Negative) Serum Alcohol < 10 (<10) mg/dL Result Diagrams: 03/25/17 08:55 03/25/17 08:55 Lab Statement: Any lab studies that have been ordered have been reviewed, and results considered in the medical decision making process. Re-Evaluation - Re-Evaluation First Eval Re-Evaluation Time: 10:53 Comment: Pt is udated with bloodwork results, UA, and Trileptal results. Pt will be discharged. Course/Dx - Course Assessment/Plan: This 36 y/o female presents to ED for acute on recurrent seizure, unwitnessed, last night. Pt reports increased stress and EtOH consumption with 8~9 shots last night at unspecified time. Positive for n/v this morning. Nausea persists at time of initial evaluation and re-evaluation. PMHx is signficant for known seizure disorder that is controlled with Keppra and Trileptal. Upon examination, pt was noted WITHOUT any bitten tongue. She had moist oral mucosa and did not have any EtOH on breath. Bloodwork and UA were wnl. Upon re-evaluation pt c/o persistent nausea. She will be discharged with zofran rx and outpatient f/u. - Differential Dx Differential Diagnoses Neuro: Positive: Alcohol Abuse, Anxiety, Seizure Disorder , Other - uti, dehrdation - Diagnoses Provider Diagnoses: Seizure disorder, Dehydration Discharge - Discharge Plan Condition: Stable Disposition: HOME Prescriptions: Ondansetron ODT TAB* [Zofran 4 MG Odt TAB*] 4 mg PO Q8H PRN #20 tab.odt PRN Reason: nausea Patient Education Materials: Dehydration (ED), Recurrent Seizures in Adults (ED ), Ondansetron (By mouth) Referrals: Madhavi Mayorga MD [Primary Care Provider] - 2 Days The documentation as recorded by the Poli weller Soohyun accurately reflects the service I personally performed and the decisions made by me, Cortez Wilkins MD.
== END 2017-03-25 11:09 | disposition home or self-care (01) ==
LOC: ED 07:34
DX: G40.909 Epilepsy, unspecified, not intractable, without status epilepticus (principal); E86.0 Dehydration; D64.9 Anemia, unspecified
CPT/HCPCS: 36415; 80053; 80177; 80183; 80320; 81003; 81015; 83605; 83735; 85025; 85610; 87086; 96360; 96374; 96375; 99283; G0480; J2060; J2405

== ENCOUNTER 2017-04-06 14:00 | Inpatient (IN) | payer OTHER ==
[2017-04-06] MEDS ORDERED: LORazepam INJ* 2 MG/ML 1 ML VIAL IV PRN (18:10)
--- NOTE | 2017-04-06 18:20 | ADMNOTE ---
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 Seizures started at age 25, the AVM was discovered in 2003, but her first grand mal was not until March 2007. She first started medications around then for seizures. She first saw a neurologist in [place] for her AVM, then started seeing Dr. Downs who referred her to [place] for surgical evaluation and the AVM was embolized in December [address] Madison, followed by resection by Dr. Harrington. The last surgery with Dr. Harrington was February 16, 2014. She did not have an appreciable seizure-free period after this. With seizures, she first gets an aura of a metallic taste and a funny smell that is hard to describe but sometimes smells like oranges or fruit but she also says it's unpleasant. She will get pulsating in the left ear, as well as double vision. She is prescribed Ativan and will take this during an aura, which can be prolonged. If this progresses into a bigger seizure, the last thing she'll remember is head- turning to the left. She is now having auras essentially on a daily basis. She had a convulsion within the last month or two. She has been using lorazepam on a near daily basis, often two to three times per day, for many months. In the fall, she experienced withdrawal seizures when Dr. Mayorga stopped prescribing the medication because her urine toxicology screen came back negative for benzodiazepines. More recently, she has been reporting episodes of her legs getting weak/knees buckling after she takes Trileptal. She has fallen to the floor and her boyfriend has had to carry her. It is unclear if this is related to seizure activity or not. She has no history of kidney stones or sulfa allergy but her allergy list indicates she tried zonisamide in the past and had a rash. She has also tried Vimpat and had suicidal ideations. She was previously followed by Dr. Albrecht as well, but has not seen him since May 2014, shortly after her second resection. She is treated with levetiracetam 2000mg BID and Trileptal 600mg BID. Recently, Fycompa was added and she increased the dose to 6mg but she has been very irritable and fox so this is being weaned and discontinued. She also tried Aptiom but felt dizzy and that seizures were worse. PRIOR AEDs: Dilantin: made her dizzy Tegretol: can't remember why stopped Vimpat: had suicidal ideations (Dr Albrecht suggested) (Depakote) Topamax - thinks it wasn't helpful zonisamide - rash gabapentin - irritable levetiracetam - current oxcarbazepine - currently at 600mg BID. Makes her tired. Aptiom - side effects but unclear if she was taking Trileptal at the same time. lorazepam - current but concerns about misuse/diversion since winter 2015. Epilepsy Risk Factors: right temporal AVM s/p embolization and resection PMH/Surg Hx/FS Hx/Imm Hx Endocrine/Hematology History: Reports: Hx Anemia - IV iron tx Denies: Hx Anticoagulant Therapy, Hx Diabetes, Hx Thyroid Disease Cardiovascular History: Denies: Hx Congestive Heart Failure, Hx Hypertension, Hx Pacemaker/ICD Comment Only: Other Cardiovascular Problems/Disorders - Arteriovenous malformation - Sx repair in 2008. Right atrial enlargement. 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 RT TEMPORAL LOBE IN 2008 [place] (removed scar tissue). 5 CSECTIONS Hx Anesthesia Reactions: No - Immunization History Date of Tetanus Vaccine: None Date of Influenza Vaccine: None Infectious Disease History: No Infectious Disease History: Denies: Hx Hepatitis, Hx Human Immunodeficiency Virus (HIV), Traveled Outside the US in Last 30 Days - Family History Known Family History: Positive: Cardiac Disease, Hypertension, Other - cancer Negative: Diabetes - Social History Alcohol Use: None Hx Substance Use: Yes Substance Use Type: Reports: None Substance Use Comment - Amount & Last Used: Ativan Hx Tobacco Use: Yes Smoking Status (MU): Former Smoker Have You Smoked in the Last Year: Yes - had of close relative on 2016 so smoked to cope EMU Exam - Exam Physical/Neurological Exam: Physical Exam: General: Well appearing in no acute distress. Eyes: normal conjunctiva, pupils were equal and reactive. Neck: supple, no bruit ENT: atraumatic, normal oropharynx. Very poor dentition Pulmonary: clear to auscultation, good respiratory effort Cardiac: regular rate and rhythmic, no murmurs/rubs/gallops, pulses palpable MSK: no extremity deformities Derm: bruising over right thigh Neurological Exam: Mental Status: Awake and alert. Oriented to person, place, and time. Fluent. Comprehension intact. Affect appropriate. Cranial Nerves: Visual dixon full to confrontation. Pupils were equal, round, and reactive constricting from 3mm to 2mm. Versions were full and without nystagmus. Facial musculature and sensation were symmetric. Hearing grossly intact to finger rub. Palate was upgoing bilaterally. Tongue was midline. Shoulder shrug was symmetric. Motor: Bulk, tone, and strength were normal throughout. Pronator drift was absent. There were no abnormal movements. Sensory: Sensation to light touch was intact. Romberg was absent. Coordination: Finger to nose and heel to zhang were intact. Reflexes: 2+ throughout the upper and lower extremities with downgoing toes bilaterally. Gait: Narrow based and normal. EMU Review of Systems Review of Systems: A 12 point review of systems was completed and significantly positive for: bruising over legs. The remainder of the review was negative except as stated above in the HPI. EMU Diagnostics - Diagnostic Most Recent Vital Signs: Vital Signs: Temp Pulse Resp BP Pulse Ox 97.4 F 61 16 117/80 100 04/06/17 15:24 04/06/17 15:24 04/06/17 15:24 04/06/17 15:24 04/06/17 15:24 Interim video-EEG long-term monitoring report: Ambulatory EEG January 2017: right temporoparietal discharges which were frequent during waking and very frequent during sleep. There was an electrographic correlate to one of her auras after she woke from sleep. The seizure arose from the right temporoparietal region and the activity waxed and waned over nearly 15 minutes. Radiology Impressions: MRI brain 03/28/17: Stable post-surgical changes in the right temporal lobe, consistent with previous surgical resection. EMU Assessment/Plan - Assessment/Plan Assessment/Plan: 36 year old woman with localization-related epilepsy due to right temporoparietal AVM s/p embolization and resection, on levetiracetam, oxcarbazepine and Fycompa. She continues to experience nearly daily auras and sometimes bigger seizures despite this treatment regimen. She has been overusing lorazepam as a result, and had withdrawal seizures in the fall when this medication was abruptly discontinued. She has a difficult time tolerating AEDs, and has been unable to tolerate Aptiom and Fycompa, most recently. The goal of the present adjunct faculty for medical terminology video/EEG monitoring session is to recharacterize her epilepsy in order to help determine if there are any further surgical options for her, and to reduce the use of lorazepam. She will also be taken off Fycompa. Plan: Admit to the Epilepsy Service, Dr. Coles attending terminal press operator video EEG monitoring for the purpose of characterizing events above Seizure precautions IV lorazepam as needed for prolonged aura >20 minutes or GTC. Will monitor use closely. Home AED regimen: levetiracetam 2000mg BID, oxcarbazepine 600mg bID and Fycompa 4mg nightly. Decrease Fycompa to 2mg nightly x2 doses, then stop. Continue current doses of other meds Continue on other prescribed home medications. * Patient was supposed to get blood levels of medications done this week but she forgot. Will check LEV and OXC levels and will also check CBC and iron studies given bruising and request by patient for iron studies.
[2017-04-06] MEDS: diPHENhydraMINE PO* 25 MG PO PRN (19:58)
[2017-04-06] MEDS: Ondansetron ODT TAB* 4 MG SL PRN (19:58)
[2017-04-06] MEDS: Acetaminophen TAB* 325 MG PO PRN (19:59)
[2017-04-06] MEDS ORDERED: levETIRAcetam LIQ* 500 MG/5 ML UDC PO SCH (21:00)
[2017-04-06] MEDS: PERAMPANEL 2 MG PO SCH (21:14)
[2017-04-06] MEDS: OXcarbazepine TAB(*) 300 MG PO SCH (21:14)
[2017-04-07 07:10] LABS: Hematocrit 34 % (35-47); Hemoglobin 11.3 g/dl (12.0-16.0); Mean Corpuscular HGB Conc 33 g/dl (31-36); Mean Corpuscular Hemoglobin 28 pg (27-31); Mean Corpuscular Volume 85 fL (80-97); Mean Platelet Volume 8 um3 (7.4-10.4); Red Blood Count 4.01 10^6/ul (4.0-5.4); Red Cell Distribution Width 14 % (10.5-15); White Blood Count 6.1 10^3/ul (3.5-10.8)
[2017-04-07 07:35] LABS: Iron 72 ug/dL (50-212); Total Iron Binding Capacity 326 mcg/dL (250-450); Transferrin 233 mg/dL (203-362)
[2017-04-07] MEDS: Acetaminophen TAB* 325 MG PO PRN ×2 (07:41→20:15)
[2017-04-07] MEDS: OXcarbazepine TAB(*) 300 MG PO SCH ×2 (07:42→20:15)
[2017-04-07] MEDS ORDERED: B COMPLEX PO SCH (09:00)
[2017-04-07] MEDS ORDERED: [UNRECOGNIZED DRUG - OTHER] PO SCH (09:00)
[2017-04-07] MEDS ORDERED: Cholecalciferol TAB* 1000 UNITS PO SCH (09:00)
[2017-04-07] MEDS ORDERED: Citalopram TAB* 20 MG PO SCH (09:00)
[2017-04-07] MEDS ORDERED: levETIRAcetam LIQ* 500 MG/5 ML UDC PO SCH ×2 (09:00)
--- NOTE | 2017-04-07 10:01 | EEG ---
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 Her last surgery was in 2013 and she did not have any long-term seizure-free period following that. Her auras have increased and she continues to experience nearly daily auras and sometimes bigger seizures despite this treatment regimen. She has been overusing lorazepam as a result, and had withdrawal seizures in the fall when this medication was abruptly discontinued. She has a difficult time tolerating AEDs, and has been unable to tolerate Aptiom and Fycompa, most recently. The goal of the present nursing home video/EEG monitoring session is to recharacterize her epilepsy in order to help determine if there are any further surgical options for her, and to reduce the use of lorazepam. She will also be taken off Fycompa. Introduction: INTRODUCTION: The EEG was monitored from 21 scalp electrodes. Nineteen electrodes consisted of the standard parasagittal, temporal and midline leads of the International 10 -20 system. In addition, special electrodes FT9 and FT10 were placed. EEG data were recorded on an ABS system with simultaneous MPEG-4 digital video recording of patient behavior. EEG recording was in a monopolar montage with all electrodes referenced to FCz. Significant behavioral events were signaled by an event button, or putative electrical seizure events were detected by a computer program. All EEG data were reviewed in their entirety on a monitor with reconstruction of montages and adjustments of sensitivity and filtering. Simultaneous patient behavior was viewed on an adjacent monitor and correlated with the EEG. - Medications Active Medications: Acetaminophen (Tylenol Tab*) 650 mg PO Q6H PRN PRN Reason: PAIN Last Admin: 04/07/17 07:41 Dose: 650 mg Cholecalciferol (Vitamin D Tab*) 1,000 units PO DAILY [facility] Last Admin: 04/07/17 07:40 Dose: 1,000 units Citalopram Hydrobromide (Celexa Tab*) 20 mg PO DAILY [facility] Last Admin: 04/07/17 07:41 Dose: 20 mg Diphenhydramine HCl (Benadryl Po*) 25 mg PO Q6H PRN PRN Reason: ITCHING Last Admin: 04/06/17 19:58 Dose: 25 mg Levetiracetam (Keppra Liq*) 2,000 mg PO BID [facility] Last Admin: 04/07/17 07:42 Dose: 2,000 mg Lorazepam (Ativan Inj*) 1 mg IV Q8H PRN PRN Reason: generalized sz or prolonged au Last Admin: 04/07/17 08:20 Dose: 1 mg B Complex W/ C [B Complex With C] 1 Tab 1 tab PO DAILY [facility] Last Admin: 04/07/17 07:38 Dose: 1 tab Perampanel [Fycompa] (2 Mg) 2 mg PO BEDTIME [facility] Last Admin: 04/06/17 21:14 Dose: Not Given Ondansetron HCl (Zofran Odt Tab*) 4 mg SL Q6H PRN PRN Reason: NAUSEA/VOMITING Last Admin: 04/06/17 19:58 Dose: 4 mg Oxcarbazepine (Trileptal Tab(*)) 600 mg PO BID [facility] Last Admin: 04/07/17 07:42 Dose: 600 mg - Description Background: The waking background showed appropriate organization with clearly defined anterior-posterior voltage and frequency gradients. There was a defined posterior dominant rhythm of 9 Hertz, which was symmetrical and showed normal reactivity. Anteriorly, there was the expected pattern of lower voltage and more irregular theta and beta rhythms. The sleep background was appropriately organized with well-developed spindles and vertex waves indicative of stage 2 sleep. These sleep transients showed appropriate morphology and were bilaterally synchronous and symmetrical. Development of diffuse delta range frequencies with dropout of stage 2 architecture accompanied transition to slow wave sleep, and a lower voltage mixed frequency pattern associated with eye movements was consistent with REM sleep. There was frequent, polymorphic, mixed frequency slowing affecting P4, and also sometimes T6. There were some higher amplitudes over the right temporoparietal region, consistent with breach effect. Intericatal Epileptiform Activity: #01 04/06: Background as described above. At times, the slowing in the right temporoparietal region took on sharp contours at P4, but did not have epileptiform features. Furthermore, during sleep there were some instances of moderate voltage sharp and slow wave activity, maximal at T6 but also well- represented at T4, and F8 and with a field to O2. There were other, more rare, instances of spike activity noted at P4, but without an obvious field, so it is unclear if this is related to breach effect #02 04/07: In addition to above, during sleep, there is occasional low amplitude , very sharp activity at T6 which is often in the alpha to beta range, but sometimes slower in the 7 Hz range. There is no appreciable field to this activity. In addition, during waking and sleep, there is frequent polymorphic slowing at P4 with occasional sharp wave discharges with an aftergoing slow wave. #03 04/08: She continues to have low voltage, very sharp activity at T6 during sleep, lasting 1 to 3 seconds. This is also sometimes seen during waking. After the prolonged aura event, discreet spike and slow wave discharges of moderate to high voltage were more frequently seen at P4, up to a few per minute during waking. #04 04/09: Ictal Activity: #04/06: The patient pushed the patient event button twice, indicating she was having an aura. The first occurred at 19:51 on 04/06. She indicated it was a "small one" with a little metallic taste. The second event occurred at 08:01 on 04/07. This was a more prolonged event and involved diplopia, left sided weakness , metallic taste. It lasted for more than 20 minutes and she received 1mg IV Ativan. Within 10 minutes, she reported resolution of symptoms to the nurse. There was no obvious EEG correlate to these events. #02 04/07: She had 2 auras at 22:02 on 04/07 and 08:07 on 04/08. Both involved auditory phenomena (humming in the first case, pulsating in the second case, both on the left), altered sensation in the left arm and/or leg, metallic taste , strange odor and peripheral vision loss in the left field. Both lasted more than 20 minutes, and she received IV lorazepam 0.5mg IV x2. Neither was associated with obvious change in the EEG. #03 04/08: She had one prolonged aura starting at 18:25, which was typical and involved a metallic taste, pulsating in the left ear, smell of copper, double vision, loss of peripheral vision superiorly on the left, a cold sensation, numbness and heaviness of the left arm. This lasted almost an hour. There was no obvious EEG correlate to this other than increased rhythmic slowing at P4 in the range of 2 to 4Hz as well as more frequent, discreet spike and slow wave discharges at P4 with a small field to C4 and O2. These sometimes occurred 2 to 4 times per page during this event, but at other times there were 1 to 2 minutes between discharges. She did not receive lorazepam. #04 04/09: At 07:47:06, there was a spike and slow wave discharge at P4 followed by a relative voltage attenuation for 3 seconds, then a buildup of very low voltage, fast frequency activity which quickly increased in amplitude and slowed in frequency to 12 Hz. After several seconds, this grew further in amplitude and slowed to 8 Hz while spreading to involve the temporal region at T6 and into the central region at C4. This gradually becomes more irregular until it is primarily characterized by 1 to 2 Hz spikes, 2 to 3 Hz slowing and overriding faster frequency activity. There is a not a clear termination to the ictal activity, but it appears to end around 07:50:27. Clinically, the patient pushed the event button over a minute after the EEG onset. She was filling out her menu at the time of the EEG onset and continued to do so. She was noted to be using her left hand normally to manipulate the menu. Once she pressed the event button, she indicated she was having her typical aura involving a metallic taste, copper smell, pulsating in the left ear as well as a buzzing sound and vision abnormalities. The left arm went numb. She became slightly nauseated. She was able to remember recall phrases and follow commands without difficulty. After the ictal pattern ended, she continued to describe her symptoms and indicated they were becoming stronger. Within 7 minutes or so, however, her symptoms largely abated. She then experienced another typical aura at 10:41. Her left arm was not as involved with numbness and she did not get nauseated, but otherwise it was as described above. There was no obvious EEG correlate, but frequent discharges at P4 were noted.
[2017-04-07] MEDS ORDERED: LORazepam INJ* 2 MG/ML 1 ML VIAL IV PRN (11:28)
--- NOTE | 2017-04-07 13:04 | PN ---
Epilepsy Service Progress Note - Subjective DOS 04/07/17 Patient had 2 auras since admission, including a prolonged one around 0800 today for which she was given Ativan 1mg IV. These were typical auras for her including metallic taste, pulsating in the left ear, diplopia, eventual left arm weakness. She has been logging her symptoms in a notebook. - Medications Active Medications: Acetaminophen (Tylenol Tab*) 650 mg PO Q6H PRN PRN Reason: PAIN Last Admin: 04/07/17 07:41 Dose: 650 mg Cholecalciferol (Vitamin D Tab*) 1,000 units PO DAILY [facility] Last Admin: 04/07/17 07:40 Dose: 1,000 units Citalopram Hydrobromide (Celexa Tab*) 20 mg PO DAILY [facility] Last Admin: 04/07/17 07:41 Dose: 20 mg Diphenhydramine HCl (Benadryl Po*) 25 mg PO Q6H PRN PRN Reason: ITCHING Last Admin: 04/06/17 19:58 Dose: 25 mg Levetiracetam (Keppra Liq*) 2,000 mg PO BID [facility] Last Admin: 04/07/17 07:42 Dose: 2,000 mg Lorazepam (Ativan Inj*) 0.5 mg IV PUSH Q8H PRN PRN Reason: prolonged aura >20 mins Lorazepam (Ativan Inj*) 1 mg IV Q8H PRN PRN Reason: generalized sz B Complex W/ C [B Complex With C] 1 Tab 1 tab PO DAILY [facility] Last Admin: 04/07/17 07:38 Dose: 1 tab Perampanel [Fycompa] (2 Mg) 2 mg PO BEDTIME [facility] Last Admin: 04/06/17 21:14 Dose: Not Given Ondansetron HCl (Zofran Odt Tab*) 4 mg SL Q6H PRN PRN Reason: NAUSEA/VOMITING Last Admin: 04/06/17 19:58 Dose: 4 mg Oxcarbazepine (Trileptal Tab(*)) 600 mg PO BID [facility] Last Admin: 04/07/17 07:42 Dose: 600 mg EMU Diagnostics - Diagnostic Most Recent Vital Signs: Vital Signs: Temp Pulse Resp BP Pulse Ox 97.9 F 76 16 97/55 99 04/07/17 07:30 04/07/17 08:32 04/07/17 09:14 04/07/17 08:32 04/07/17 08:32 Lab Results: Laboratory Tests 04/07/17 04/07/17 06:30 06:30 WBC 6.1 RBC 4.01 Hgb 11.3 L Hct 34 L MCV 85 MCH 28 MCHC 33 RDW 14 Plt Count 278 MPV 8 Neut % (Auto) 47.8 Lymph % (Auto) 37.4 [place] % (Auto) 9.3 H Eos % (Auto) 5.0 Baso % (Auto) 0.5 Absolute Neuts (auto) 2.9 Absolute Lymphs (auto) 2.3 Absolute Monos (auto) 0.6 Absolute Eos (auto) 0.3 Absolute Basos (auto) 0 Absolute Nucleated RBC 0.01 Nucleated RBC % 0.1 Iron 72 TIBC 326 % Saturation 22 Unsat Iron Binding 254 Interim video-EEG long-term monitoring report: #04/06: There is slowing in the right temporoparietal region. Occasionally, there are sharp contours to this slowing, and during sleep, there is slowing with sharp waves affecting T6, T4, F8 and sometimes separately affecting P4. There was no obvious EEG correlate to the 2 auras experienced. Background otherwise shows a PDR of 8.5. Overall, the background appears much improved compared the ambulatory EEG done in 04/07 EMU Exam - Exam Physical/Neurological Exam: Physical Exam: General: Well appearing in no acute distress. ENT: atraumatic, normal oropharynx. Very poor dentition Derm: bruising over right thigh Neurological Exam: Mental Status: Awake and alert. Oriented to person, place, and time. Fluent. Comprehension intact. Affect appropriate. Cranial Nerves: Visual dixon full to confrontation. Versions were full and without nystagmus. Facial musculature and sensation were symmetric. Hearing grossly intact to voice. Palate was upgoing bilaterally. Tongue was midline. Shoulder shrug was symmetric. Motor: Bulk, tone, and strength were normal throughout. Pronator drift was absent. There were no abnormal movements. Sensory: Sensation to light touch was intact. Coordination: Finger to nose intact. Reflexes: 2+ throughout the upper and lower extremities with downgoing toes bilaterally. 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 She has been having daily auras and requiring essentially daily use of lorazepam at home. She is treated with a three drug regimen of Fycompa, Keppra and Trileptal, but is unable to tolerate Fycompa due to mood side effects. During this admission, she will be taken off Fycompa and hopefully the use of lorazepam will be reduced. The goal is also to capture typical events to help determine if there are any remaining surgical options for her. Two typical aura events have been recorded. She received Ativan 1mg IV x1. No EEG correlate to auras but this does not necessarily exclude the possibility that these are epileptic, especially given the fact that a more intense episode was captured on a recent ambulatory EEG and showed an EEG correlate. Plan: * Continue prison video EEG monitoring to capture typical episodes * Seizure precautions * Change lorazepam dose to be given for prolonged aura >20 minutes to 0.5mg IV Q8 hours. Dose for a GTC will be 1mg * continue oxcarbazepine 600mg BID, levetiracetam 2000mg BID and Fycompa 2mg qhs. Fycompa will be discontinued after this evening's dose. * continue other home meds * will begin to gently wean medications tomorrow if no events today/tonight with EEG correlate
[2017-04-07] MEDS: diPHENhydraMINE PO* 25 MG PO PRN (16:12)
[2017-04-07] MEDS: levETIRAcetam LIQ* 500 MG/5 ML UDC PO SCH (20:14)
[2017-04-07] MEDS: PERAMPANEL 2 MG PO SCH (20:15)
[2017-04-07] MEDS: LORazepam INJ* 2 MG/ML 1 ML VIAL IV PUSH PRN (22:22)
[2017-04-07] MEDS: Ondansetron ODT TAB* 4 MG SL PRN (23:21)
[2017-04-08] MEDS: B COMPLEX PO SCH (07:27)
[2017-04-08] MEDS: [UNRECOGNIZED DRUG - OTHER] PO SCH (07:27)
[2017-04-08] MEDS: Cholecalciferol TAB* 1000 UNITS PO SCH (07:28)
[2017-04-08] MEDS: OXcarbazepine TAB(*) 300 MG PO SCH ×2 (07:29→19:54)
[2017-04-08] MEDS: Citalopram TAB* 20 MG PO SCH (07:29)
[2017-04-08] MEDS: levETIRAcetam LIQ* 500 MG/5 ML UDC PO SCH ×2 (07:30→19:54)
[2017-04-08] MEDS: LORazepam INJ* 2 MG/ML 1 ML VIAL IV PUSH PRN (08:34)
[2017-04-08] MEDS: diPHENhydraMINE PO* 25 MG PO PRN ×2 (09:32→21:44)
--- NOTE | 2017-04-08 11:41 | PN ---
Epilepsy Service Progress Note - Subjective DOS 04/08/17 Patient had prolonged auras around 10pm last night and 0800 this AM. Received 0.5mg Ativan IV x2 with resolution of symptoms within 5 minutes. She indicates the aura last night progressed to involve her leg, but the one this AM did not. This AM she felt like her left eye was moving or jerking. She's now sleepy. Otherwise no new events. - Medications Active Medications: Acetaminophen (Tylenol Tab*) 650 mg PO Q6H PRN PRN Reason: PAIN Last Admin: 04/07/17 20:15 Dose: 650 mg Cholecalciferol (Vitamin D Tab*) 1,000 units PO DAILY@0800 [facility] Last Admin: 04/08/17 07:28 Dose: 1,000 units Citalopram Hydrobromide (Celexa Tab*) 20 mg PO DAILY@0800 [facility] Last Admin: 04/08/17 07:29 Dose: 20 mg Diphenhydramine HCl (Benadryl Po*) 25 mg PO Q6H PRN PRN Reason: ITCHING Last Admin: 04/08/17 09:32 Dose: 25 mg Levetiracetam (Keppra Liq*) 2,000 mg PO BID@799,1999 [facility] Last Admin: 04/08/17 07:30 Dose: 2,000 mg Lorazepam (Ativan Inj*) 0.5 mg IV PUSH Q8H PRN PRN Reason: prolonged aura >20 mins Last Admin: 04/08/17 08:34 Dose: 0.5 mg Lorazepam (Ativan Inj*) 1 mg IV Q8H PRN PRN Reason: generalized sz Perampanel [Fycompa] (2 Mg) 2 mg PO BEDTIME [facility] Last Admin: 04/07/17 20:15 Dose: 2 mg B Complex W/ C [B Complex With C] 1 Tab 1 tab PO DAILY@0800 [facility] Last Admin: 04/08/17 07:27 Dose: 1 tab Ondansetron HCl (Zofran Odt Tab*) 4 mg SL Q6H PRN PRN Reason: NAUSEA/VOMITING Last Admin: 04/07/17 23:21 Dose: 4 mg Oxcarbazepine (Trileptal Tab(*)) 600 mg PO BID@ [facility] Last Admin: 04/08/17 07:29 Dose: 600 mg EMU Diagnostics - Diagnostic Most Recent Vital Signs: Vital Signs: Temp Pulse Resp BP Pulse Ox 98.2 F 71 16 104/68 98 04/08/17 07:35 04/08/17 08:37 04/08/17 09:00 04/08/17 08:37 04/08/17 08:37 Lab Results: Laboratory Tests 04/07/17 04/07/17 06:30 06:30 WBC 6.1 RBC 4.01 Hgb 11.3 L Hct 34 L MCV 85 MCH 28 MCHC 33 RDW 14 Plt Count 278 MPV 8 Neut % (Auto) 47.8 Lymph % (Auto) 37.4 [place] % (Auto) 9.3 H Eos % (Auto) 5.0 Baso % (Auto) 0.5 Absolute Neuts (auto) 2.9 Absolute Lymphs (auto) 2.3 Absolute Monos (auto) 0.6 Absolute Eos (auto) 0.3 Absolute Basos (auto) 0 Absolute Nucleated RBC 0.01 Nucleated RBC % 0.1 Iron 72 TIBC 326 % Saturation 22 Unsat Iron Binding 254 Interim video-EEG long-term monitoring report: #01 04/06: There is slowing in the right temporoparietal region. Occasionally, there are sharp contours to this slowing, and during sleep, there is slowing with sharp waves affecting T6, T4, F8 and sometimes separately affecting P4. There was no obvious EEG correlate to the 2 auras experienced. Background otherwise shows a PDR of 8.5. Overall, the background appears much improved compared the ambulatory EEG done in 04/07: In addition to above, during sleep, there is occasional low amplitude , very sharp activity at T6 which is often in the alpha to beta range, but sometimes slower in the 7 Hz range. There is no appreciable field to this activity. In addition, during waking, there is frequent polymorphic slowing at P4 with occasional sharp wave discharges with an aftergoing slow wave. She had 2 auras at 22:02 on 04/07 and 08:07 on 04/08. Both involved auditory phenomena (humming in the first case, pulsating in the second case, both on the left), altered sensation in the left arm and/or leg, metallic taste, strange odor and peripheral vision loss in the left field. Both lasted more than 20 minutes, and she received IV lorazepam. Neither was associated with obvious change in the EEG. EMU Exam - Exam Physical/Neurological Exam: Physical Exam: General: Well appearing in no acute distress. ENT: atraumatic, normal oropharynx. Very poor dentition Derm: bruising over right thigh Neurological Exam: Mental Status: Awake and alert. Oriented to person, place, and time. Fluent. Comprehension intact. Affect appropriate. Cranial Nerves: Visual dixon full to confrontation. Versions were full and without nystagmus. Facial musculature and sensation were symmetric. Hearing grossly intact to voice. Palate was upgoing bilaterally. Tongue was midline. Shoulder shrug was symmetric. Motor: Bulk, tone, and strength were normal throughout. Pronator drift was absent. There were no abnormal movements. Sensory: Sensation to light touch was intact. Coordination: Finger to nose intact. Reflexes: 2+ throughout the upper and lower extremities with downgoing toes bilaterally. 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 She has been having daily auras and requiring essentially daily use of lorazepam at home. She is treated with a three drug regimen of Fycompa, Keppra and Trileptal, but is unable to tolerate Fycompa due to mood side effects. During this admission, she will be taken off Fycompa and hopefully the use of lorazepam will be reduced. The goal is also to capture typical events to help determine if there are any remaining surgical options for her. Four typical aura events have been recorded. She received Ativan 1mg IV x1 in the AM on 04/07, then has received an additional 0.5mg x2 for a total of 2mg in the last 24 hours. No EEG correlate to auras but this does not necessarily exclude the possibility that these are epileptic, especially given the fact that a more intense episode was captured on a recent ambulatory EEG and showed an EEG correlate. 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 Dose for a GTC will be 1mg. Nursing to call me if patient has aura that exceeds 20 minutes and I will review EEG to determine if there is need to give Ativan, especially if symptoms are progressing. * Discontinue Fycompa * continue oxcarbazepine 600mg BID, levetiracetam 2000mg BID. * continue other home meds
[2017-04-08] MEDS ORDERED: LORazepam INJ* 2 MG/ML 1 ML VIAL IV PUSH PRN (11:44)
[2017-04-08] MEDS: Acetaminophen TAB* 325 MG PO PRN ×2 (17:48→21:44)
[2017-04-09] MEDS: Cholecalciferol TAB* 1000 UNITS PO SCH (08:33)
[2017-04-09] MEDS: [UNRECOGNIZED DRUG - OTHER] PO SCH (08:33)
[2017-04-09] MEDS: B COMPLEX PO SCH (08:33)
[2017-04-09] MEDS: levETIRAcetam LIQ* 500 MG/5 ML UDC PO SCH ×2 (08:34→20:28)
[2017-04-09] MEDS: OXcarbazepine TAB(*) 300 MG PO SCH (08:34)
[2017-04-09] MEDS: Citalopram TAB* 20 MG PO SCH (08:34)
--- NOTE | 2017-04-09 11:51 | PN ---
Epilepsy Service Progress Note - Subjective DOS 04/09/17 Patient experienced a prolonged aura last night, did not receive Ativan. She has experienced 2 more auras this morning, one with an EEG correlate (07:48). She has not felt any of the weak leg episodes. She has not been as tired with the Trileptal and wonders if it has to do with not cutting it in half and swallowing it whole here. - Medications Active Medications: Acetaminophen (Tylenol Tab*) 650 mg PO Q6H PRN PRN Reason: PAIN Last Admin: 04/08/17 21:44 Dose: 650 mg Cholecalciferol (Vitamin D Tab*) 1,000 units PO DAILY@0800 [facility] Last Admin: 04/09/17 08:33 Dose: 1,000 units Citalopram Hydrobromide (Celexa Tab*) 20 mg PO DAILY@0800 [facility] Last Admin: 04/09/17 08:34 Dose: 20 mg Diphenhydramine HCl (Benadryl Po*) 25 mg PO Q6H PRN PRN Reason: ITCHING Last Admin: 04/08/17 21:44 Dose: 25 mg Levetiracetam (Keppra Liq*) 2,000 mg PO BID@799,1999 [facility] Last Admin: 04/09/17 08:34 Dose: 2,000 mg Lorazepam (Ativan Inj*) 1 mg IV Q8H PRN PRN Reason: generalized sz Lorazepam (Ativan Inj*) 0.5 mg IV PUSH Q24H PRN PRN Reason: prolonged aura >20 mins B Complex W/ C [B Complex With C] 1 Tab 1 tab PO DAILY@0800 [facility] Last Admin: 04/09/17 08:33 Dose: 1 tab Ondansetron HCl (Zofran Odt Tab*) 4 mg SL Q6H PRN PRN Reason: NAUSEA/VOMITING Last Admin: 04/07/17 23:21 Dose: 4 mg Oxcarbazepine (Trileptal Tab(*)) 600 mg PO BID@ [facility] Last Admin: 04/09/17 08:34 Dose: 600 mg EMU Diagnostics - Diagnostic Most Recent Vital Signs: Vital Signs: Temp Pulse Resp BP Pulse Ox 98.6 F 79 18 110/64 100 04/09/17 07:55 04/09/17 07:55 04/09/17 08:27 04/09/17 07:55 04/09/17 07:55 Lab Results: Laboratory Tests 04/07/17 04/07/17 06:30 06:30 WBC 6.1 RBC 4.01 Hgb 11.3 L Hct 34 L MCV 85 MCH 28 MCHC 33 RDW 14 Plt Count 278 MPV 8 Neut % (Auto) 47.8 Lymph % (Auto) 37.4 [place] % (Auto) 9.3 H Eos % (Auto) 5.0 Baso % (Auto) 0.5 Absolute Neuts (auto) 2.9 Absolute Lymphs (auto) 2.3 Absolute Monos (auto) 0.6 Absolute Eos (auto) 0.3 Absolute Basos (auto) 0 Absolute Nucleated RBC 0.01 Nucleated RBC % 0.1 Iron 72 TIBC 326 % Saturation 22 Unsat Iron Binding 254 Interim video-EEG long-term monitoring report: #04/06: There is slowing in the right temporoparietal region which affects P4 to the greatest degree. Occasionally, there are sharp contours to this slowing, and during sleep, there is slowing with sharp waves affecting T6, T4, F8 and sometimes separately affecting P4. There was no obvious EEG correlate to the 2 auras experienced. Background otherwise shows a PDR of 8.5. Overall, the background appears much improved compared the ambulatory EEG done in 04/07: In addition to above, during sleep, there is occasional low amplitude , very sharp activity at T6 which is often in the alpha to beta range, but sometimes slower in the 7 Hz range. There is no appreciable field to this activity. In addition, during waking, there is frequent polymorphic slowing at P4 with occasional sharp wave discharges with an aftergoing slow wave. She had 2 auras at 22:02 on 04/07 and 08:07 on 04/08. Both involved auditory phenomena (humming in the first case, pulsating in the second case, both on the left), altered sensation in the left arm and/or leg, metallic taste, strange odor and peripheral vision loss in the left field. Both lasted more than 20 minutes, and she received IV lorazepam. Neither was associated with obvious change in the EEG. #04/08: She continues to have low voltage, very sharp activity at T6 during sleep, lasting 1 to 3 seconds. This is also sometimes seen during waking. She had one prolonged aura starting at 18:25, which was typical and involved a metallic taste, pulsating in the left ear, smell of copper, double vision, loss of peripheral vision superiorly on the left, a cold sensation, numbness and heaviness of the left arm. This lasted almost an hour. There was no obvious EEG correlate to this other than increased rhythmic slowing at P4 in the range of 2 to 4Hz as well as more frequent, discreet spike and slow wave discharges at P4 with a small field to C4 and O2. These sometimes occurred 2 to 4 times per page during this event, but at other times there were 1 to 2 minutes between discharges. After this event, discreet spike and slow wave discharges of moderate to high voltage were more frequently seen at P4, up to a few per minute during waking. #04 04/09: At 07:47:06, there was a spike and slow wave discharge at P4 followed by a relative voltage attenuation for 3 seconds, then a buildup of very low voltage, fast frequency activity which quickly increased in amplitude and slowed in frequency to 12 Hz. After several seconds, this grew further in amplitude and slowed to 8 Hz while spreading to involve the temporal region at T6 and into the central region at C4. This gradually becomes more irregular until it is primarily characterized by 1 to 2 Hz spikes, 2 to 3 Hz slowing and overriding faster frequency activity. There is a not a clear termination to the ictal activity, but it appears to end around 07:50:27. Clinically, the patient pushed the event button over a minute after the EEG onset. She was filling out her menu at the time of the EEG onset and continued to do so. She was noted to be using her left hand normally to manipulate the menu. Once she pressed the event button, she indicated she was having her typical aura involving a metallic taste, copper smell, pulsating in the left ear as well as a buzzing sound and vision abnormalities. The left arm went numb. She became slightly nauseated. She was able to remember recall phrases and follow commands without difficulty. After the ictal pattern ended, she continued to describe her symptoms and indicated they were becoming stronger. Within 7 minutes or so, however, her symptoms largely abated. She then experienced another typical aura at 10:41. Her left arm was not as involved with numbness and she did not get nauseated, but otherwise it was as described above. There was no obvious EEG correlate, but frequent discharges at P4 were noted. EMU Exam - Exam Physical/Neurological Exam: Physical Exam: General: Well appearing in no acute distress. ENT: atraumatic, normal oropharynx. Very poor dentition Derm: bruising over right thigh Neurological Exam: Mental Status: Awake and alert. Oriented to person, place, and time. Fluent. Comprehension intact. Affect appropriate. Cranial Nerves: Visual dixon full to confrontation. Versions were full and without nystagmus. Facial musculature and sensation were symmetric. Hearing grossly intact to voice. Palate was upgoing bilaterally. Tongue was midline. Shoulder shrug was symmetric. Motor: Bulk, tone, and strength were normal throughout. Pronator drift was absent. There were no abnormal movements. Sensory: Sensation to light touch was intact. Coordination: Finger to nose intact. Reflexes: 2+ throughout the upper and lower extremities with downgoing toes bilaterally. 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 She has been having daily auras and requiring essentially daily use of lorazepam at home. She is treated with a three drug regimen of Fycompa, Keppra and Trileptal, but is unable to tolerate Fycompa due to mood side effects. During this admission, she has been taken off Fycompa and hopefully the use of lorazepam will be reduced. The goal is also to capture typical events to help determine if there are any remaining surgical options for her. Seven typical aura events have been recorded. She received Ativan 1mg IV x1 in the AM on 04/07, then has received an additional 0.5mg x2 for a total of 2mg in the last 48 hours, but she has not received any lorazepam in the last 24 hours. There was an EEG correlate to the first event on 04/09 and symptoms with this event and the other events without obvious EEG correlate were identical. It remains a strong possibility that all of her auras are epileptic and some of the activity is too fast and/or has the wrong electrical field/vector to be detected on the scalp. Will continue to monitor and attempt to capture one to two more of these. In addition, will continue to monitor for the lower extremity symptoms. 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 Nursing to call me if patient has aura that exceeds 20 minutes and I will review EEG to determine if there is need to give Ativan, especially if symptoms are progressing. * Fycompa discontinued after HS dose on 04/07 * home meds: oxcarbazepine 600mg BID, levetiracetam 2000mg BID. Will likely decrease [facility] oxcarbazepine dose to 300mg, but will keep 600mg AM dose and no change to levetiracetam * continue other home meds
[2017-04-09] MEDS: diPHENhydraMINE PO* 25 MG PO PRN ×2 (11:59→22:09)
[2017-04-09] MEDS: Acetaminophen TAB* 325 MG PO PRN (17:01)
[2017-04-09] MEDS ORDERED: OXcarbazepine TAB(*) 300 MG PO SCH (21:00)
[2017-04-09] MEDS: Ondansetron ODT TAB* 4 MG SL PRN (22:09)
[2017-04-10] MEDS: [UNRECOGNIZED DRUG - OTHER] PO SCH (08:34)
[2017-04-10] MEDS: B COMPLEX PO SCH (08:34)
[2017-04-10] MEDS: Cholecalciferol TAB* 1000 UNITS PO SCH (08:34)
[2017-04-10] MEDS: Citalopram TAB* 20 MG PO SCH (08:35)
[2017-04-10] MEDS: levETIRAcetam LIQ* 500 MG/5 ML UDC PO SCH ×2 (08:36→20:18)
[2017-04-10] MEDS: OXcarbazepine TAB(*) 300 MG PO SCH ×3 (08:37→20:15)
[2017-04-10] MEDS: Ondansetron ODT TAB* 4 MG SL PRN ×2 (09:14→19:13)
[2017-04-10] MEDS: Acetaminophen TAB* 325 MG PO PRN ×2 (11:07→19:13)
--- NOTE | 2017-04-10 12:25 | PN ---
Epilepsy Service Progress Note - Subjective Patient has had several more auras over the last 24 hours, including 3 this morning. With one, her left arm felt numb/weak before she got the metallic taste and odor, which is unusual. She also had the weak sensation in her legs around 0930 this morning, when she was up to the bathroom. She hurried back to bed as a result. - Medications Active Medications: Acetaminophen (Tylenol Tab*) 650 mg PO Q6H PRN PRN Reason: PAIN Last Admin: 04/10/17 11:07 Dose: 650 mg Cholecalciferol (Vitamin D Tab*) 1,000 units PO DAILY@0800 [facility] Last Admin: 04/10/17 08:34 Dose: 1,000 units Citalopram Hydrobromide (Celexa Tab*) 20 mg PO DAILY@0800 [facility] Last Admin: 04/10/17 08:35 Dose: 20 mg Diphenhydramine HCl (Benadryl Po*) 25 mg PO Q6H PRN PRN Reason: ITCHING Last Admin: 04/09/17 22:09 Dose: 25 mg Levetiracetam (Keppra Liq*) 2,000 mg PO BID@0800,2000 [facility] Last Admin: 04/10/17 08:36 Dose: 2,000 mg Lorazepam (Ativan Inj*) 1 mg IV Q8H PRN PRN Reason: generalized sz B Complex W/ C [B Complex With C] 1 Tab 1 tab PO DAILY@0800 [facility] Last Admin: 04/10/17 08:34 Dose: 1 tab Ondansetron HCl (Zofran Odt Tab*) 4 mg SL Q6H PRN PRN Reason: NAUSEA/VOMITING Last Admin: 04/10/17 09:14 Dose: 4 mg Oxcarbazepine (Trileptal Tab(*)) 300 mg PO BEDTIME [facility] Last Admin: 04/09/17 20:28 Dose: 300 mg Oxcarbazepine (Trileptal Tab(*)) 600 mg PO DAILY [facility] Last Admin: 04/10/17 08:47 Dose: Not Given EMU Diagnostics - Diagnostic Most Recent Vital Signs: Vital Signs: Temp Pulse Resp BP Pulse Ox 97.8 F 75 20 96/53 100 04/10/17 08:49 04/10/17 08:49 04/10/17 09:37 04/10/17 08:49 04/09/17 16:36 Lab Results: Laboratory Tests 04/07/17 04/07/17 06:30 06:30 WBC 6.1 RBC 4.01 Hgb 11.3 L Hct 34 L MCV 85 MCH 28 MCHC 33 RDW 14 Plt Count 278 MPV 8 Neut % (Auto) 47.8 Lymph % (Auto) 37.4 [place] % (Auto) 9.3 H Eos % (Auto) 5.0 Baso % (Auto) 0.5 Absolute Neuts (auto) 2.9 Absolute Lymphs (auto) 2.3 Absolute Monos (auto) 0.6 Absolute Eos (auto) 0.3 Absolute Basos (auto) 0 Absolute Nucleated RBC 0.01 Nucleated RBC % 0.1 Iron 72 TIBC 326 % Saturation 22 Unsat Iron Binding 254 Interim video-EEG long-term monitoring report: #04/06: There is slowing in the right temporoparietal region which affects P4 to the greatest degree. Occasionally, there are sharp contours to this slowing, and during sleep, there is slowing with sharp waves affecting T6, T4, F8 and sometimes separately affecting P4. There was no obvious EEG correlate to the 2 auras experienced. Background otherwise shows a PDR of 8.5. Overall, the background appears much improved compared the ambulatory EEG done in 04/07: In addition to above, during sleep, there is occasional low amplitude , very sharp activity at T6 which is often in the alpha to beta range, but sometimes slower in the 7 Hz range. There is no appreciable field to this activity. In addition, during waking, there is frequent polymorphic slowing at P4 with occasional sharp wave discharges with an aftergoing slow wave. She had 2 auras at 22:02 on 04/07 and 08:07 on 04/08. Both involved auditory phenomena (humming in the first case, pulsating in the second case, both on the left), altered sensation in the left arm and/or leg, metallic taste, strange odor and peripheral vision loss in the left field. Both lasted more than 20 minutes, and she received IV lorazepam. Neither was associated with obvious change in the EEG. #04/08: She continues to have low voltage, very sharp activity at T6 during sleep, lasting 1 to 3 seconds. This is also sometimes seen during waking. She had one prolonged aura starting at 18:25, which was typical and involved a metallic taste, pulsating in the left ear, smell of copper, double vision, loss of peripheral vision superiorly on the left, a cold sensation, numbness and heaviness of the left arm. This lasted almost an hour. There was no obvious EEG correlate to this other than increased rhythmic slowing at P4 in the range of 2 to 4Hz as well as more frequent, discreet spike and slow wave discharges at P4 with a small field to C4 and O2. These sometimes occurred 2 to 4 times per page during this event, but at other times there were 1 to 2 minutes between discharges. After this event, discreet spike and slow wave discharges of moderate to high voltage were more frequently seen at P4, up to a few per minute during waking. #04 04/09: At 07:47:06, there was a spike and slow wave discharge at P4 followed by a relative voltage attenuation for 3 seconds, then a buildup of very low voltage, fast frequency activity which quickly increased in amplitude and slowed in frequency to 12 Hz. After several seconds, this grew further in amplitude and slowed to 8 Hz while spreading to involve the temporal region at T6 and into the central region at C4. This gradually becomes more irregular until it is primarily characterized by 1 to 2 Hz spikes, 2 to 3 Hz slowing and overriding faster frequency activity. There is a not a clear termination to the ictal activity, but it appears to end around 07:50:27. Clinically, the patient pushed the event button over a minute after the EEG onset. She was filling out her menu at the time of the EEG onset and continued to do so. She was noted to be using her left hand normally to manipulate the menu. Once she pressed the event button, she indicated she was having her typical aura involving a metallic taste, copper smell, pulsating in the left ear as well as a buzzing sound and vision abnormalities. The left arm went numb. She became slightly nauseated. She was able to remember recall phrases and follow commands without difficulty. After the ictal pattern ended, she continued to describe her symptoms and indicated they were becoming stronger. Within 7 minutes or so, however, her symptoms largely abated. She then experienced another typical aura at 10:41. Her left arm was not as involved with numbness and she did not get nauseated, but otherwise it was as described above. There was no obvious EEG correlate, but frequent discharges at P4 were noted. An additional aura occurred at 16:30, with similar characteristics, lasting about 25 minutes. There seemed to be more frequent discharges at P4 and more rhythmic slowing, but no obvious ictal pattern. She then experienced a seizure at 07:02 on 04/10. About 6 seconds before the ictal pattern emerged, there was a high amplitude spike and slow wave discharge which was maximal at P4 and C4 with a field to O2, T4 and T6. Then, there was the emergence of moderate voltage, 10 Hz rhythmic, sharply contoured activity at P4 followed quickly by similar activity at T6, T4 and O2, as well as spread into the midline. This grew in amplitude and slowed in frequency to about 7 Hz for 15 seconds, then reappears at 5Hz primarily at P4 for 3 to 4 seconds before disappearing again for 2 seconds, then reappearing again at approximately 8 Hz for 2 seconds. Following this, there is rhythmic 2 to 3 Hz slowing at P4 with intermixed discharges. The patient was unaware of this event. She was laying quietly on her left side with eyes closed at the onset of the ictal pattern, changed her position onto her back and then sat up and stretched, raising the head of her bed. She gave no indication of feeling anything unusual. The background otherwise is much more active, with frequent slowing at P4 which is often rhythmic, and frequent spike and slow wave discharges at P4 with a field to C4, O2 EMU Exam - Exam Physical/Neurological Exam: Physical Exam: General: Well appearing in no acute distress. ENT: atraumatic, normal oropharynx. Very poor dentition Derm: bruising over right thigh Neurological Exam: Mental Status: Awake and alert. Oriented to person, place, and time. Fluent. Comprehension intact. Affect appropriate. Cranial Nerves: Visual dixon full to confrontation. Versions were full and without nystagmus. Facial musculature and sensation were symmetric. Hearing grossly intact to voice. Palate was upgoing bilaterally. Tongue was midline. Shoulder shrug was symmetric. Motor: Bulk, tone, and strength were normal throughout. Pronator drift was absent. There were no abnormal movements. Sensory: Sensation to light touch was intact. Coordination: Finger to nose intact. Reflexes: 2+ throughout the upper and lower extremities with downgoing toes bilaterally. 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 She has been having daily auras and requiring essentially daily use of lorazepam at home. She is treated with a three drug regimen of Fycompa, Keppra and Trileptal, but is unable to tolerate Fycompa due to mood side effects. During this admission, she has been taken off Fycompa and hopefully the use of lorazepam will be reduced. The goal is also to capture typical events to help determine if there are any remaining surgical options for her. Many typical aura events have been recorded. She received Ativan 1mg IV x1 in the AM on 04/07, then has received an additional 0.5mg x2 for a total of 2mg since admission, but she has not received any lorazepam since then. There was an EEG correlate to the first event on 04/09 and symptoms with this event and the other events without obvious EEG correlate were identical. It remains a strong possibility that all of her auras are epileptic and some of the activity is too fast and/or has the wrong electrical field/vector to be detected on the scalp. She also experienced an electrographic seizure without obvious clinical correlate on 04/10 in the morning. Will continue to monitor and attempt to capture one to two more of these with clinical correlate. She reported some of the lower extremity weakness in the morning on 04/10. There was no EEG correlate around this time. She had taken Trileptal around 08:30 and question whether this is a peak dose effects. Will continue to monitor for further episodes of the lower extremity symptoms as well. 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 Nursing to call me if patient has aura that exceeds 20 minutes and I will review EEG to determine if there is need to give Ativan, especially if symptoms are progressing. * Fycompa discontinued after HS dose on 04/07 * home meds: oxcarbazepine 600mg BID, levetiracetam 2000mg BID. Continue oxcarbazepine 600mg QAM and 300mg QPM. Continue levetiracetam unchanged. * Await drug levels * continue other home meds
[2017-04-10] MEDS: diPHENhydraMINE PO* 25 MG PO PRN ×2 (14:01→21:26)
[2017-04-10 15:00] LABS: Levetiracetam 48.5 mcg/mL
[2017-04-11] MEDS: [UNRECOGNIZED DRUG - OTHER] PO SCH (08:08)
[2017-04-11] MEDS: B COMPLEX PO SCH (08:08)
[2017-04-11] MEDS: Cholecalciferol TAB* 1000 UNITS PO SCH (08:10)
[2017-04-11] MEDS: OXcarbazepine TAB(*) 300 MG PO SCH ×2 (08:11→20:51)
[2017-04-11] MEDS: Citalopram TAB* 20 MG PO SCH ×2 (08:11→08:59)
[2017-04-11] MEDS: levETIRAcetam LIQ* 500 MG/5 ML UDC PO SCH ×2 (08:12→20:51)
[2017-04-11] MEDS: Acetaminophen TAB* 325 MG PO PRN ×2 (10:09→23:08)
--- NOTE | 2017-04-11 10:28 | PN ---
Epilepsy Service Progress Note - Som Vargas had a prolonged and intense aura last night which progressed to a generalized tonic clonic seizure. She knew immediately when this aura began that it was going to be a bigger seizure. She received Ativan 1mg IV, then had continued electrographic seizure activity with some clinical correlates for 2 hours post this seizure, so received another 1mg. She was restarted on her home dose Trileptal. She has had several more auras and this morning had the sexual feeling/pelvic sensation with a sense of tingling in her legs as well. She has a BHATIA this am and feels sore. We discussed the next medication to add since Fycompa was d/c'd due to side effects. - Medications Active Medications: Acetaminophen (Tylenol Tab*) 650 mg PO Q6H PRN PRN Reason: PAIN Last Admin: 04/11/17 10:09 Dose: 650 mg Cholecalciferol (Vitamin D Tab*) 1,000 units PO DAILY@0800 [facility] Last Admin: 04/11/17 08:10 Dose: 1,000 units Citalopram Hydrobromide (Celexa Tab*) 20 mg PO DAILY@0800 [facility] Last Admin: 04/11/17 08:59 Dose: 20 mg Diphenhydramine HCl (Benadryl Po*) 25 mg PO Q6H PRN PRN Reason: ITCHING Last Admin: 04/10/17 21:26 Dose: 25 mg Levetiracetam (Keppra Liq*) 2,000 mg PO BID@0800,2000 [facility] Last Admin: 04/11/17 08:12 Dose: 2,000 mg Lorazepam (Ativan Inj*) 1 mg IV Q8H PRN PRN Reason: generalized sz Last Admin: 04/10/17 20:20 Dose: 1 mg B Complex W/ C [B Complex With C] 1 Tab 1 tab PO DAILY@0800 [facility] Last Admin: 04/11/17 08:08 Dose: 1 tab Ondansetron HCl (Zofran Odt Tab*) 4 mg SL Q6H PRN PRN Reason: NAUSEA/VOMITING Last Admin: 04/10/17 19:13 Dose: 4 mg Oxcarbazepine (Trileptal Tab(*)) 600 mg PO BID [facility] Last Admin: 04/11/17 08:11 Dose: 600 mg EMU Diagnostics - Diagnostic Most Recent Vital Signs: Vital Signs: Temp Pulse Resp BP Pulse Ox 98.6 F 105 16 107/70 98 04/11/17 08:11 04/11/17 09:47 04/11/17 09:47 04/11/17 09:47 04/11/17 08:11 Lab Results: Laboratory Tests 04/07/17 04/07/17 04/07/17 06:30 06:30 06:30 WBC 6.1 RBC 4.01 Hgb 11.3 L Hct 34 L MCV 85 MCH 28 MCHC 33 RDW 14 Plt Count 278 MPV 8 Neut % (Auto) 47.8 Lymph % (Auto) 37.4 [place] % (Auto) 9.3 H Eos % (Auto) 5.0 Baso % (Auto) 0.5 Absolute Neuts (auto) 2.9 Absolute Lymphs (auto) 2.3 Absolute Monos (auto) 0.6 Absolute Eos (auto) 0.3 Absolute Basos (auto) 0 Absolute Nucleated RBC 0.01 Nucleated RBC % 0.1 Iron 72 TIBC 326 % Saturation 22 Unsat Iron Binding 254 Levetiracetam 48.5 H Interim video-EEG long-term monitoring report: #04/06: There is slowing in the right temporoparietal region which affects P4 to the greatest degree. Occasionally, there are sharp contours to this slowing, and during sleep, there is slowing with sharp waves affecting T6, T4, F8 and sometimes separately affecting P4. There was no obvious EEG correlate to the 2 auras experienced. Background otherwise shows a PDR of 8.5. Overall, the background appears much improved compared the ambulatory EEG done in 04/07: In addition to above, during sleep, there is occasional low amplitude , very sharp activity at T6 which is often in the alpha to beta range, but sometimes slower in the 7 Hz range. There is no appreciable field to this activity. In addition, during waking, there is frequent polymorphic slowing at P4 with occasional sharp wave discharges with an aftergoing slow wave. She had 2 auras at 22:02 on 04/07 and 08:07 on 04/08. Both involved auditory phenomena (humming in the first case, pulsating in the second case, both on the left), altered sensation in the left arm and/or leg, metallic taste, strange odor and peripheral vision loss in the left field. Both lasted more than 20 minutes, and she received IV lorazepam. Neither was associated with obvious change in the EEG. #03 04/08: She continues to have low voltage, very sharp activity at T6 during sleep, lasting 1 to 3 seconds. This is also sometimes seen during waking. She had one prolonged aura starting at 18:25, which was typical and involved a metallic taste, pulsating in the left ear, smell of copper, double vision, loss of peripheral vision superiorly on the left, a cold sensation, numbness and heaviness of the left arm. This lasted almost an hour. There was no obvious EEG correlate to this other than increased rhythmic slowing at P4 in the range of 2 to 4Hz as well as more frequent, discreet spike and slow wave discharges at P4 with a small field to C4 and O2. These sometimes occurred 2 to 4 times per page during this event, but at other times there were 1 to 2 minutes between discharges. After this event, discreet spike and slow wave discharges of moderate to high voltage were more frequently seen at P4, up to a few per minute during waking. #04 04/09: At 07:47:06, there was a spike and slow wave discharge at P4 followed by a relative voltage attenuation for 3 seconds, then a buildup of very low voltage, fast frequency activity which quickly increased in amplitude and slowed in frequency to 12 Hz. After several seconds, this grew further in amplitude and slowed to 8 Hz while spreading to involve the temporal region at T6 and into the central region at C4. This gradually becomes more irregular until it is primarily characterized by 1 to 2 Hz spikes, 2 to 3 Hz slowing and overriding faster frequency activity. There is a not a clear termination to the ictal activity, but it appears to end around 07:50:27. Clinically, the patient pushed the event button over a minute after the EEG onset. She was filling out her menu at the time of the EEG onset and continued to do so. She was noted to be using her left hand normally to manipulate the menu. Once she pressed the event button, she indicated she was having her typical aura involving a metallic taste, copper smell, pulsating in the left ear as well as a buzzing sound and vision abnormalities. The left arm went numb. She became slightly nauseated. She was able to remember recall phrases and follow commands without difficulty. After the ictal pattern ended, she continued to describe her symptoms and indicated they were becoming stronger. Within 7 minutes or so, however, her symptoms largely abated. She then experienced another typical aura at 10:41. Her left arm was not as involved with numbness and she did not get nauseated, but otherwise it was as described above. There was no obvious EEG correlate, but frequent discharges at P4 were noted. An additional aura occurred at 16:30, with similar characteristics, lasting about 25 minutes. There seemed to be more frequent discharges at P4 and more rhythmic slowing, but no obvious ictal pattern. She then experienced a seizure at 07:02 on 04/10. About 6 seconds before the ictal pattern emerged, there was a high amplitude spike and slow wave discharge which was maximal at P4 and C4 with a field to O2, T4 and T6. Then, there was the emergence of moderate voltage, 10 Hz rhythmic, sharply contoured activity at P4 followed quickly by similar activity at T6, T4 and O2, as well as spread into the midline. This grew in amplitude and slowed in frequency to about 7 Hz for 15 seconds, then reappears at 5Hz primarily at P4 for 3 to 4 seconds before disappearing again for 2 seconds, then reappearing again at approximately 8 Hz for 2 seconds. Following this, there is rhythmic 2 to 3 Hz slowing at P4 with intermixed discharges. The patient was unaware of this event. She was laying quietly on her left side with eyes closed at the onset of the ictal pattern, changed her position onto her back and then sat up and stretched, raising the head of her bed. She gave no indication of feeling anything unusual. The background otherwise is much more active, with frequent slowing at P4 which is often rhythmic, and frequent spike and slow wave discharges at P4 with a field to C4, O2 #05 04/10: The background continued to demonstrate continuous slowing primarily at P4, which is often rhythmic, and frequent spike and slow wave discharges which vary from moderate to high voltage and demonstrate a field to the midline and more posterior to T6/O2. She had typical auras at 08:48, 10:18, 10:37, 12:32 lasting between 10 and 15 minutes before the bigger seizure. While there was no clear ictal pattern with these, there was often increased frequency of discharges at P4 with more rhythmic slowing and sometimes faster frequency activity superimposed. She also had an episode of "leg weakness" while she was up to the bathroom around 09:25-09:30. She did not press the button, but indicated this later. There was no obvious change on the EEG. She had received Trileptal at 08:37. At 18:00, she had an electrographic seizure which began at P4 with a high voltage spike and slow wave discharge followed by rhythmic sharply contoured activity at P4 around 8 to 10 Hz. This activity waxed and waned, and sometimes appeared faster in the beta range, spread to the temporal and central regions and was punctuated by high amplitude discharges at P4. It appeared to end after about 50 seconds. She was playing cards and there was no obvious clinical correlate. Another seizure began at 18:26:37 with rhythmic alpha/beta range activity of moderate voltage at P4 and C4 with spread into T6/P8. After a minute or so, the ictal activity was reflected in most of the right hemisphere, but remained maximal at P4. The ictal activity waxed and waned, sometimes becoming more irregular and less rhythmic, and then reorganizing into a more rhythmic, higher amplitude pattern ranging averaging about 7 Hz. After about 11 minutes, the activity became intermixed with slower frequencies, in the range of 4 Hz. This activity then spread to the left hemisphere, first in the parieto-occipital region, after another 3 minutes. The pattern at P4 took on a polyspike appearance overriding high amplitude 2 to 3 Hz activity, and this spread into the right occipital and central regions, followed by the occipital region in the left hemisphere and then secondarily generalized. The seizure ended after 15 minutes and there was diffuse voltage suppression for about 40 seconds before slowing and discharges returned. The left side normalized before the right. She was tachycardic throughout this seizure. Clinically, she pressed the event button 23 seconds after the first ictal change was evident. She indicated she had her typical aura symptoms including pulsating in the ear, metallic taste, copper smell but she appeared more restless and concerned and immediately stated "this one might be a big one because of the feeling I'm having". She complained of feeling nauseated and rearranged things on her bed. She indicated her heart felt like it was racing. After 2 minutes, she covered her eyes and appeared very uncomfortable. The nurses were trying to engage her in conversation but she was much more reserved than with other events. She was able to state all of the recall phrases she had been given over the previous days. She rubbed her left hand with her right. About 5.5 minutes into the seizure, she was asked to raise her arms and was unable to lift the left one well. She sat very still and repetitively put her right hand over her eyes. She started to have hypersalivation and indicated the nausea was worse. Seven minutes into the seizure, she started spitting into a bucket and did this several more times over the course of the seizure. Her left leg was flexed and she asked nursing to help her extend it. She started to have some oral automatisms with the hypersalivation and needed to spit more frequently. Her head turned to the left but not forced. Ten minutes into the seizure she became emotional, indicated her left arm was burning and everything was getting worse. As the ictal activity increased in amplitude on the right side and took on more polyspike components, she remained responsive and explained that her body felt like it wanted to shake. At this point, the nurse began asking for Ativan. The patient requested oxygen. She brought her right hand to her mouth as the ictal activity spread to the left hemisphere and as the oxygen was applied the nurse asked "are you with me?" and there was no response. Her right hand was up near her face and left was in her lap. She started to have some slight clonic activity of the head and the left arm came up followed by clonic activity of the left hand, which came up near her head. The head turned forcefully to the left and the right hand was held in an abnormal posture as well. The left arm extended and she exhibited figure 4 posturing with the right arm. The legs flexed and then extended and she had tonic clonic movements which were asymmetric. This portion of the seizure lasted approximately 1 minute and 20 seconds. She received 1mg lorazepam IV. She became responsive to the nurse's questions after about 5 minutes. At 18:56 she pressed the event button because she needed to go to the bathroom. She had an electrographic seizure at 19:13, similar to the previously described electrographic seizures, lasting almost a minute, during which she was able to take her pills and did not appear to have any clinical symptoms. She pressed the event button at 19:25 and indicated she was having another aura. While the nurses were still with her at 19:33, she had another electrographic seizure, similar to the others, and without any obvious change in the aura symptoms she was experiencing. This seizure lasted 2.5 minutes. At 20:12, she had another focal seizure and pressed the event button at 20:13. For several seconds before she pressed the event button, she looked like she experiencing symptoms and thinking about whether to press the button or not. The electrographic pattern lasted 40 seconds. She reported typical aura symptoms. Another electrographic seizure occurred at 20:23. She was still being assessed and her vitals were being taken. There were no obvious clinical changes. She got her evening medications and another 1mg dose of lorazepam IV at 20:25. At 08:03 on 04/11, she had another focal electrographic seizure maximal at P4 which waxed and waned and ended after 35 seconds. She was sitting quietly and there was no obvious clinical correlate. EMU Exam - Exam Physical/Neurological Exam: Physical Exam: General: Well appearing in no acute distress. ENT: atraumatic, normal oropharynx. Very poor dentition Derm: bruising over right thigh Neurological Exam: Mental Status: Awake and alert. Oriented to person, place, and time. Fluent. Comprehension intact. Affect appropriate. Cranial Nerves: Visual dixon full to confrontation. Versions were full and without nystagmus. Facial musculature and sensation were symmetric. Hearing grossly intact to voice. Palate was upgoing bilaterally. Tongue was midline. Shoulder shrug was symmetric. Motor: Bulk, tone, and strength were normal throughout. Pronator drift was absent. There were no abnormal movements. Sensory: Sensation to light touch was intact. Coordination: Finger to nose intact. Reflexes: 2+ throughout the upper and lower extremities with downgoing toes bilaterally. 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 She has been having daily auras and requiring essentially daily use of lorazepam at home. She is treated with a three drug regimen of Fycompa, Keppra and Trileptal, but is unable to tolerate Fycompa due to mood side effects. During this admission, she has been taken off Fycompa and hopefully the use of lorazepam will be reduced. The goal is also to capture typical events to help determine if there are any remaining surgical options for her. Many typical aura events have been recorded. She received Ativan 1mg IV x1 in the AM on 04/07, then has received an additional 0.5mg x2 for a total of 2mg since admission. There was an EEG correlate to the first event on 04/09 and symptoms with this event and the other events without obvious EEG correlate were identical. Suspect that all of her auras are epileptic and some of the activity is too fast and/or has the wrong electrical field/vector to be detected on the scalp. She has now also experienced an additional electroclinical seizure with secondary generalization, as well as many electrographic seizure without obvious clinical correlates. Seizures originate from the right parietal region and semiology concurs. She received another 2mg Ativan total on 04/10. She reported some of the lower extremity weakness in the morning on 04/10. There was no EEG correlate around this time. She had taken Trileptal around 08:30 and question whether this is a peak dose effects. She had another episode of this in the morning on 04/11, to be reviewed. Medications restarted. Discussed an alternate third medication with patient since she did not tolerate Fycompa. Will start Onfi as an outpatient, starting at 5mg nightly. Goal will be to treat only very strong auras which are likely to secondarily generalize with rescue benzo. Goal is to eventually eliminate rescue benzo all together if possible. Plan to discuss in next PRC. Plan: * Continue longterm video EEG monitoring today * Seizure precautions * Discontinue lorazepam for prolonged aura. Nursing to call me if patient has aura that exceeds 20 minutes and I will review EEG to determine if there is need to give Ativan, especially if symptoms are progressing. * Fycompa discontinued after HS dose on 04/07 * home meds: oxcarbazepine 600mg BID, levetiracetam 2000mg BID. Meds restarted last night * Await OX[facility] level. LEV level 48. * Plan to start Onfi as outpatient * Will instruct to use rescue lorazepam only for very strong aura likely to secondarily generalize, as she seems to be able to tell these apart. * continue other home meds
[2017-04-11] MEDS ORDERED: LORazepam INJ* 2 MG/ML 1 ML VIAL IV PUSH STA (12:54)
[2017-04-11] MEDS: Ondansetron ODT TAB* 4 MG SL PRN (13:08)
[2017-04-11] MEDS: diPHENhydraMINE PO* 25 MG PO PRN (18:41)
[2017-04-12] MEDS: Ondansetron ODT TAB* 4 MG SL PRN (00:07)
[2017-04-12] MEDS: diPHENhydraMINE PO* 25 MG PO PRN ×2 (00:39→11:45)
[2017-04-12] MEDS: Cholecalciferol TAB* 1000 UNITS PO SCH (07:52)
[2017-04-12] MEDS: B COMPLEX PO SCH (07:52)
[2017-04-12] MEDS: [UNRECOGNIZED DRUG - OTHER] PO SCH (07:52)
[2017-04-12] MEDS: OXcarbazepine TAB(*) 300 MG PO SCH (07:53)
[2017-04-12] MEDS: Citalopram TAB* 20 MG PO SCH (07:56)
[2017-04-12] MEDS: levETIRAcetam LIQ* 500 MG/5 ML UDC PO SCH (07:57)
[2017-04-12 08:16] VITALS: BP 98/65
[2017-04-12] MEDS: Acetaminophen TAB* 325 MG PO PRN (09:11)
--- NOTE | 2017-04-12 11:26 | PN ---
Epilepsy Service Progress Note - Subjective Pt had multiple auras yesterday. Experienced a few more brief focal seizures with the last one being at 12:45 yesterday. Did not sleep well overnight by looking at EEG but anxious to go home today. Misses her kids. We reviewed the big seizure she had here at her request and also a more typical aura to help teach her when to take Ativan. Bradley confirmed the way she acted before the big seizure here is typically how she feels at home before one. Will start Onfi as outpatient - Medications Active Medications: Acetaminophen (Tylenol Tab*) 650 mg PO Q6H PRN PRN Reason: PAIN Last Admin: 04/12/17 09:11 Dose: 650 mg Cholecalciferol (Vitamin D Tab*) 1,000 units PO DAILY@0800 [facility] Last Admin: 04/12/17 07:52 Dose: 1,000 units Citalopram Hydrobromide (Celexa Tab*) 20 mg PO DAILY@0800 [facility] Last Admin: 04/12/17 07:56 Dose: 20 mg Diphenhydramine HCl (Benadryl Po*) 25 mg PO Q6H PRN PRN Reason: ITCHING Last Admin: 04/12/17 00:39 Dose: 25 mg Levetiracetam (Keppra Liq*) 2,000 mg PO BID@0800,1999 [facility] Last Admin: 04/12/17 07:57 Dose: 2,000 mg Lorazepam (Ativan Inj*) 1 mg IV Q8H PRN PRN Reason: generalized sz Last Admin: 04/10/17 20:20 Dose: 1 mg B Complex W/ C [B Complex With C] 1 Tab 1 tab PO DAILY@0800 [facility] Last Admin: 04/12/17 07:52 Dose: 1 tab Ondansetron HCl (Zofran Odt Tab*) 4 mg SL Q6H PRN PRN Reason: NAUSEA/VOMITING Last Admin: 04/12/17 00:07 Dose: 4 mg Oxcarbazepine (Trileptal Tab(*)) 600 mg PO BID [facility] Last Admin: 04/12/17 07:53 Dose: 600 mg EMU Diagnostics - Diagnostic Most Recent Vital Signs: Vital Signs: Temp Pulse Resp BP Pulse Ox 98.4 F 68 20 98/65 97 04/12/17 07:55 04/12/17 07:55 04/12/17 09:16 04/12/17 07:55 04/12/17 07:55 Lab Results: Laboratory Tests 04/07/17 04/07/17 04/07/17 06:30 06:30 06:30 WBC 6.1 RBC 4.01 Hgb 11.3 L Hct 34 L MCV 85 MCH 28 MCHC 33 RDW 14 Plt Count 278 MPV 8 Neut % (Auto) 47.8 Lymph % (Auto) 37.4 [place] % (Auto) 9.3 H Eos % (Auto) 5.0 Baso % (Auto) 0.5 Absolute Neuts (auto) 2.9 Absolute Lymphs (auto) 2.3 Absolute Monos (auto) 0.6 Absolute Eos (auto) 0.3 Absolute Basos (auto) 0 Absolute Nucleated RBC 0.01 Nucleated RBC % 0.1 Iron 72 TIBC 326 % Saturation 22 Unsat Iron Binding 254 Oxcarbazepine Metabol 20 Levetiracetam 48.5 H Interim video-EEG long-term monitoring report: 04/06: There is slowing in the right temporoparietal region which affects P4 to the greatest degree. Occasionally, there are sharp contours to this slowing, and during sleep, there is slowing with sharp waves affecting T6, T4, F8 and sometimes separately affecting P4. There was no obvious EEG correlate to the 2 auras experienced. Background otherwise shows a PDR of 8.5. Overall, the background appears much improved compared the ambulatory EEG done in 04/07: In addition to above, during sleep, there is occasional low amplitude , very sharp activity at T6 which is often in the alpha to beta range, but sometimes slower in the 7 Hz range. There is no appreciable field to this activity. In addition, during waking, there is frequent polymorphic slowing at P4 with occasional sharp wave discharges with an aftergoing slow wave. She had 2 auras at 22:02 on 04/07 and 08:07 on 04/08. Both involved auditory phenomena (humming in the first case, pulsating in the second case, both on the left), altered sensation in the left arm and/or leg, metallic taste, strange odor and peripheral vision loss in the left field. Both lasted more than 20 minutes, and she received IV lorazepam. Neither was associated with obvious change in the EEG. 04/08: She continues to have low voltage, very sharp activity at T6 during sleep, lasting 1 to 3 seconds. This is also sometimes seen during waking. She had one prolonged aura starting at 18:25, which was typical and involved a metallic taste, pulsating in the left ear, smell of copper, double vision, loss of peripheral vision superiorly on the left, a cold sensation, numbness and heaviness of the left arm. This lasted almost an hour. There was no obvious EEG correlate to this other than increased rhythmic slowing at P4 in the range of 2 to 4Hz as well as more frequent, discreet spike and slow wave discharges at P4 with a small field to C4 and O2. These sometimes occurred 2 to 4 times per page during this event, but at other times there were 1 to 2 minutes between discharges. After this event, discreet spike and slow wave discharges of moderate to high voltage were more frequently seen at P4, up to a few per minute during waking. #04 04/09: At 07:47:06, there was a spike and slow wave discharge at P4 followed by a relative voltage attenuation for 3 seconds, then a buildup of very low voltage, fast frequency activity which quickly increased in amplitude and slowed in frequency to 12 Hz. After several seconds, this grew further in amplitude and slowed to 8 Hz while spreading to involve the temporal region at T6 and into the central region at C4. This gradually becomes more irregular until it is primarily characterized by 1 to 2 Hz spikes, 2 to 3 Hz slowing and overriding faster frequency activity. There is a not a clear termination to the ictal activity, but it appears to end around 07:50:27. Clinically, the patient pushed the event button over a minute after the EEG onset. She was filling out her menu at the time of the EEG onset and continued to do so. She was noted to be using her left hand normally to manipulate the menu. Once she pressed the event button, she indicated she was having her typical aura involving a metallic taste, copper smell, pulsating in the left ear as well as a buzzing sound and vision abnormalities. The left arm went numb. She became slightly nauseated. She was able to remember recall phrases and follow commands without difficulty. After the ictal pattern ended, she continued to describe her symptoms and indicated they were becoming stronger. Within 7 minutes or so, however, her symptoms largely abated. She then experienced another typical aura at 10:41. Her left arm was not as involved with numbness and she did not get nauseated, but otherwise it was as described above. There was no obvious EEG correlate, but frequent discharges at P4 were noted. An additional aura occurred at 16:30, with similar characteristics, lasting about 25 minutes. There seemed to be more frequent discharges at P4 and more rhythmic slowing, but no obvious ictal pattern. She then experienced a seizure at 07:02 on 04/10. About 6 seconds before the ictal pattern emerged, there was a high amplitude spike and slow wave discharge which was maximal at P4 and C4 with a field to O2, T4 and T6. Then, there was the emergence of moderate voltage, 10 Hz rhythmic, sharply contoured activity at P4 followed quickly by similar activity at T6, T4 and O2, as well as spread into the midline. This grew in amplitude and slowed in frequency to about 7 Hz for 15 seconds, then reappears at 5Hz primarily at P4 for 3 to 4 seconds before disappearing again for 2 seconds, then reappearing again at approximately 8 Hz for 2 seconds. Following this, there is rhythmic 2 to 3 Hz slowing at P4 with intermixed discharges. The patient was unaware of this event. She was laying quietly on her left side with eyes closed at the onset of the ictal pattern, changed her position onto her back and then sat up and stretched, raising the head of her bed. She gave no indication of feeling anything unusual. The background otherwise is much more active, with frequent slowing at P4 which is often rhythmic, and frequent spike and slow wave discharges at P4 with a field to C4, O2 #05 04/10: The background continued to demonstrate continuous slowing primarily at P4, which is often rhythmic, and frequent spike and slow wave discharges which vary from moderate to high voltage and demonstrate a field to the midline and more posterior to T6/O2. She had typical auras at 08:48, 10:18, 10:37, 12:32 lasting between 10 and 15 minutes before the bigger seizure. While there was no clear ictal pattern with these, there was often increased frequency of discharges at P4 with more rhythmic slowing and sometimes faster frequency activity superimposed. She also had an episode of "leg weakness" while she was up to the bathroom around 09:25-09:30. She did not press the button, but indicated this later. There was no obvious change on the EEG. She had received Trileptal at 08:37. At 18:00, she had an electrographic seizure which began at P4 with a high voltage spike and slow wave discharge followed by rhythmic sharply contoured activity at P4 around 8 to 10 Hz. This activity waxed and waned, and sometimes appeared faster in the beta range, spread to the temporal and central regions and was punctuated by high amplitude discharges at P4. It appeared to end after about 50 seconds. She was playing cards and there was no obvious clinical correlate. Another seizure began at 18:26:37 with rhythmic alpha/beta range activity of moderate voltage at P4 and C4 with spread into T6/P8. After a minute or so, the ictal activity was reflected in most of the right hemisphere, but remained maximal at P4. The ictal activity waxed and waned, sometimes becoming more irregular and less rhythmic, and then reorganizing into a more rhythmic, higher amplitude pattern ranging averaging about 7 Hz. After about 11 minutes, the activity became intermixed with slower frequencies, in the range of 4 Hz. This activity then spread to the left hemisphere, first in the parieto-occipital region, after another 3 minutes. The pattern at P4 took on a polyspike appearance overriding high amplitude 2 to 3 Hz activity, and this spread into the right occipital and central regions, followed by the occipital region in the left hemisphere and then secondarily generalized. The seizure ended after 15 minutes and there was diffuse voltage suppression for about 40 seconds before slowing and discharges returned. The left side normalized before the right. She was tachycardic throughout this seizure. Clinically, she pressed the event button 23 seconds after the first ictal change was evident. She indicated she had her typical aura symptoms including pulsating in the ear, metallic taste, copper smell but she appeared more restless and concerned and immediately stated "this one might be a big one because of the feeling I'm having". She complained of feeling nauseated and rearranged things on her bed. She indicated her heart felt like it was racing. After 2 minutes, she covered her eyes and appeared very uncomfortable. The nurses were trying to engage her in conversation but she was much more reserved than with other events. She was able to state all of the recall phrases she had been given over the previous days. She rubbed her left hand with her right. About 5.5 minutes into the seizure, she was asked to raise her arms and was unable to lift the left one well. She sat very still and repetitively put her right hand over her eyes. She started to have hypersalivation and indicated the nausea was worse. Seven minutes into the seizure, she started spitting into a bucket and did this several more times over the course of the seizure. Her left leg was flexed and she asked nursing to help her extend it. She started to have some oral automatisms with the hypersalivation and needed to spit more frequently. Her head turned to the left but not forced. Ten minutes into the seizure she became emotional, indicated her left arm was burning and everything was getting worse. As the ictal activity increased in amplitude on the right side and took on more polyspike components, she remained responsive and explained that her body felt like it wanted to shake. At this point, the nurse began asking for Ativan. The patient requested oxygen. She brought her right hand to her mouth as the ictal activity spread to the left hemisphere and as the oxygen was applied the nurse asked "are you with me?" and there was no response. Her right hand was up near her face and left was in her lap. She started to have some slight clonic activity of the head and the left arm came up followed by clonic activity of the left hand, which came up near her head. The head turned forcefully to the left and the right hand was held in an abnormal posture as well. The left arm extended and she exhibited figure 4 posturing with the right arm. The legs flexed and then extended and she had tonic clonic movements which were asymmetric. This portion of the seizure lasted approximately 1 minute and 20 seconds. She received 1mg lorazepam IV. She became responsive to the nurse's questions after about 5 minutes. At 18:56 she pressed the event button because she needed to go to the bathroom. She had an electrographic seizure at 19:13, similar to the previously described electrographic seizures, lasting almost a minute, during which she was able to take her pills and did not appear to have any clinical symptoms. She pressed the event button at 19:25 and indicated she was having another aura. While the nurses were still with her at 19:33, she had another electrographic seizure, similar to the others, and without any obvious change in the aura symptoms she was experiencing. This seizure lasted 2.5 minutes. At 20:12, she had another focal seizure and pressed the event button at 20:13. For several seconds before she pressed the event button, she looked like she experiencing symptoms and thinking about whether to press the button or not. The electrographic pattern lasted 40 seconds. She reported typical aura symptoms. Another electrographic seizure occurred at 20:23. She was still being assessed and her vitals were being taken. There were no obvious clinical changes. She got her evening medications and another 1mg dose of lorazepam IV at 20:25. At 08:03 on 04/11, she had another focal electrographic seizure maximal at P4 which waxed and waned and ended after 35 seconds. She was sitting quietly and there was no obvious clinical correlate. #06 04/11: She had focal seizures at 08:49 (lasting 15 seconds), 12:33 (lasting about 15 seconds), 12:45 (lasting almost 30 seconds). She had auras around these times as well, and also had other auras at 09:32, 10:34, 10:56, 17:06, 19: 49 and 00:21. At 09:46 and 22:42, she had the sensation of weakness in her legs and a "sexual sensation" in her pelvis. Discharges seemed very frequent in the afternoon on 04/11, often occurring at 1 to 3 Hz, but sometimes there were 2 to 3 seconds without discharges and other times discharges were seen as frequently as 5 Hz for 1 second. She had a difficult time staying asleep until after 0200. #07 04/12: She did not have any events on this day before the EEG was disconnected for discharge. Background as previously described with frequent discharges at P4 and continuous slowing. EMU Exam - Exam Physical/Neurological Exam: Physical Exam: General: Well appearing in no acute distress. ENT: atraumatic, normal oropharynx. Very poor dentition Derm: bruising over right thigh Neurological Exam: Mental Status: Awake and alert. Oriented to person, place, and time. Fluent. Comprehension intact. Affect appropriate. Cranial Nerves: Visual dixon show left upper quadrant defect. Versions were full and without nystagmus. Facial musculature and sensation were symmetric. Hearing grossly intact to voice. Palate was upgoing bilaterally. Tongue was midline. Shoulder shrug was symmetric. Motor: Bulk, tone, and strength were normal throughout. Pronator drift was absent. There were no abnormal movements. Sensory: Sensation to light touch was intact. Coordination: Finger to nose intact. Reflexes: 2+ throughout the upper and lower extremities with downgoing toes bilaterally. 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 She has been having daily auras and requiring essentially daily use of lorazepam at home. She was treated with a three drug regimen of Fycompa, Keppra and Trileptal at admission, but is unable to tolerate Fycompa due to mood side effects. During this admission, she has been taken off Fycompa and lorazepam use was reduced. The goal is also to capture typical events to help determine if there are any remaining surgical options for her. Many typical aura events have been recorded. She received Ativan 1mg IV x1 in the AM on 04/07, then has received an additional 0.5mg x2 for a total of 2mg since admission. There was an EEG correlate to the first event on 04/09 and symptoms with this event and the other events without obvious EEG correlate were identical. Suspect that all of her auras are epileptic and some of the activity is too fast and/or has the wrong electrical field/vector to be detected on the scalp. She has now also experienced an additional electroclinical seizure with secondary generalization, as well as many electrographic seizure without obvious clinical correlates. Seizures originate from the right parietal region and semiology concurs. She received another 2mg Ativan total on 04/10. She reported some of the lower extremity weakness in the morning on 04/10. There was no EEG correlate around this time. She had taken Trileptal around 08:30 and question whether this is a peak dose effects. She had another 2 episodes of this on 04/11, with no obvious EEG correlate. Medications restarted. Discussed an alternate third medication with patient since she did not tolerate Fycompa. Will start Onfi as an outpatient, starting at 5mg nightly. Goal will be to treat only very strong auras which are likely to secondarily generalize with rescue benzo. Goal is to eventually eliminate rescue benzo all together if possible. Plan to discuss in next PRC. Seizure videos were reviewed with patient at her request and will hopefully be helpful to her in determining which focal seizures to treat with rescue benzo. 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 * home meds: oxcarbazepine 600mg BID, levetiracetam 2000mg BID. Continue * OXC level 20. LEV level 48. * use rescue lorazepam only for very strong aura likely to secondarily generalize, as she seems to be able to tell these apart. * FU with me as scheduled on 05/21/17 at 2pm
--- NOTE | 2017-04-12 12:04 | DS ---
EMU Discharge - Discharge Summary Discharge Summary: Admitted: 04/06/17 Attending: Leatha Coles MD Admitting Diagnosis: localization-related epilepsy due to AVM s/p resection Discharge Diagnosis: same Admission History (From Admission H&P): see admission H&P Admission Examination: see admission H&P Admission AED Medications: levetiracetam 2000mg BID oxcarbazepine 600mg BID Fycompa 4mg nightly. Hospital Course: The patient was admitted to the epilepsy service for long-term video EEG monitoring. The patient had numerous events consisting of typical aura symptoms including metallic taste, copper smell, pulsating in the left ear, peripheral vision loss on the left, altered sensation or burning in the left arm and sometimes leg and left arm and leg weakness. She sometimes also became nauseated. One of the events secondarily generalized and she appeared very anxious and restless during the initial portion of the event. These were considered typical of events that the was having at home. During these events, the EEG showed frequent discharges but no obvious ictal pattern for many of the auras. At times, she had electrographic seizures focal at P4 without clear clinical correlate while at other times the electrographic seizures overlapped somewhat with aura symptoms. With the seizure that secondarily generalized, there was definite electrographic correlate, with ictal activity beginning at P4, spreading through the right hemisphere then eventually to the left and secondarily generalizing after 15 minutes. The following medication medication changes were made during the testing: Fycompa was discontinued. Onfi will be started as an outpatient. The patient was also instructed to alter her use of lorazepam so she is only taking it for a very strong aura that is likely to secondarily generalize. Discharge Examination: same as admission Destination: Home. Diet: Regular. Follow-up: with Dr Coles on 05/21/17. Discharge Medications Medication Instructions Recorded Confirmed Type Levetiracetam [Keppra LIQ] 4 teasp PO BID 01/30/17 04/06/17 History OXcarbazepine TAB(*) [Trileptal 600 mg PO BID 01/30/17 04/06/17 History 300 mg TAB(*)] B Complex W/ C [B Complex with C] 1 tab PO DAILY 04/06/17 04/06/17 History Cholecalciferol [D3-1000] 1 cap PO DAILY 04/06/17 04/06/17 History Citalopram TAB* [Celexa TAB*] 20 mg PO DAILY 04/06/17 04/06/17 History Lorazepam [Ativan 0.5 MG TAB] 1 tab PO BID PRN MDD 1mg 04/06/17 04/06/17 History Onfi 10mg 1/2 tab qhs x2 wks then 1/2 tab BID
== END 2017-04-12 12:07 | disposition home or self-care (01) | DRG 53 ==
LOC: MCHPEDS 14:11 → EMU 14:57
PROVIDERS: ADMIT Psychiatry & Neurology Neurology; ATTEND Psychiatry & Neurology Neurology
PROC: 4A10X4Z Monitoring of Central Nervous Electrical Activity, External Approach (ICD-10-PCS; principal; 2017-04-06)
DX: G40.009 Localization-related (focal) (partial) idiopathic epilepsy and epileptic syndromes with seizures of localized onset, not intractable, without status epilepticus (principal); F32.9 Major depressive disorder, single episode, unspecified; Z82.49 Family history of ischemic heart disease and other diseases of the circulatory system; Z80.9 Family history of malignant neoplasm, unspecified; Z87.891 Personal history of nicotine dependence; R51 Headache
CPT/HCPCS: 36415; 80177; 80183; 83540; 83550; 85025; 95951; A9270-GY; J2060

== ENCOUNTER 2017-04-21 17:29 | Emergency (ER) | payer OTHER ==
[2017-04-21] MEDS ORDERED: LORazepam INJ* 2 MG/ML 1 ML VIAL IV ONE (17:39)
[2017-04-21] MEDS ORDERED: NS 0.9% 1000 ML* 1,000 ML IV ONE (17:50)
[2017-04-21] MEDS ORDERED: HYDROcodone/ACETAMIN 5-325 MG* 1 TAB PO ONE (18:26)
[2017-04-21] MEDS ORDERED: Amoxicillin CAP* 250 MG PO ONE (18:26)
[2017-04-21 18:52] LABS: Hematocrit 37 % (35-47); Hemoglobin 12.2 g/dl (12.0-16.0); Mean Corpuscular HGB Conc 33 g/dl (31-36); Mean Corpuscular Hemoglobin 28 pg (27-31); Mean Corpuscular Volume 85 fL (80-97); Mean Platelet Volume 8 um3 (7.4-10.4); Red Blood Count 4.34 10^6/ul (4.0-5.4); Red Cell Distribution Width 14 % (10.5-15); White Blood Count 8.3 10^3/ul (3.5-10.8)
[2017-04-21 19:03] LABS: Urine Bacteria Absent (Absent); Urine Bilirubin Negative (Negative); Urine Glucose Negative (Negative); Urine Nitrite Negative (Negative)
[2017-04-21 19:05] LABS: ALT 10 U/L (7-52); AST 17 U/L (13-39); Albumin 4.5 g/dL (3.2-5.2); Alkaline Phosphatase 46 U/L (34-104); Anion Gap 8 mmol/L (2-11); BUN/Creatinine Ratio 17.6 (8-20); Blood Urea Nitrogen 12 mg/dL (6-24); CO2 Carbon Dioxide 25 mmol/L (22-32); Calcium 9.6 mg/dL (8.6-10.3); Chloride 104 mmol/L (101-111); Creatine Kinase 66 U/L (10-223); EGFR African American 126.6 (>60); EGFR Non-African American 98.5 (>60); Globulin 2.2 g/dL (2-4); Glucose 87 mg/dL (70-100); Magnesium 2.2 mg/dL (1.9-2.7); Potassium 3.3 mmol/L (3.5-5.0); Sodium 137 mmol/L (133-145); Total Protein 6.7 g/dL (6.4-8.9)
--- NOTE | 2017-04-21 19:21 | ED ---
Natalya Bolton Rebecca, scribed for Matti Romero MD on 04/21/17 at 1801 . Neurological HPI - HPI Summary HPI Summary: This patient is a 36 y.o F BIBA that presents to [facility] c/o pre-seizure aura. Aura began earlier today and has been constant since onset. Aura is typical to the ones that she experiences prior to szs. Confirms that she has Ativan (0.5 mg) at home, but was not able to take it at onset of aura. Sx aggravated and alleviated by nothing. Additionally c/o sz today at 1015, which had a similar aura preceding it. Sz is believed to have been generalized and described by her mother as "she said I got really tight and shook." She c/o myalgias s/p seizure , ranked 10/10. Denies any trauma during episode. Notes R flank pain, dark urine and L upper dental pain. States that she has been experiencing an increase in tooth loss and dental pain recently and expresses a concern of infection. PMHx seizures. Confirms she has been following up with Dr. Coles and Dr. Solorio. - History of Current Complaint Chief Complaint: EDSeizure Stated Complaint: SEIZURE-AURA Time Seen by Provider: 04/21/17 17:39 Hx Obtained From: Patient Onset/Duration: Sudden Onset, Still Present - aura still present Timing: Constant Number of Seizures: 1 - At 1015 this morning Pain Intensity: 10 - myalgias s/p seizure Pain Scale Used: 0-10 Numeric Character: Other: - ache Seizure Character: Generalized Aggravating: Nothing Alleviating: Nothing Similar Episode/Dx as: Previous auras prior to seizures - Additional Pertinent History Primary Care Physician: [id number] - Allergy/Home Medications Allergies/Adverse Reactions: Allergies Allergy/AdvReac Type Severity Reaction Status Date / Time Bee Venom Allergy Severe Hives Verified 03/14/17 12:00 Morphine Allergy Severe Hives Verified 03/14/17 12:00 Mushroom Extract Complex Allergy Severe Hives Verified 03/14/17 12:00 Sulfa Antibiotics Allergy Intermediate Rash Verified 04/06/17 15:52 PMH/Surg Hx/FS Hx/Imm Hx Endocrine/Hematology History: Reports: Hx Anemia - IV iron tx Denies: Hx Anticoagulant Therapy, Hx Diabetes, Hx Thyroid Disease Cardiovascular History: Denies: Hx Congestive Heart Failure, Hx Hypertension, Hx Pacemaker/ICD Comment Only: Other Cardiovascular Problems/Disorders - Arteriovenous malformation - Sx repair in 2008. Right atrial enlargement. 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 RT TEMPORAL LOBE IN 2008 [place] (removed scar tissue). 5 CSECTIONS Hx Anesthesia Reactions: No - Immunization History Date of Tetanus Vaccine: None Date of Influenza Vaccine: None Infectious Disease History: No Infectious Disease History: Denies: Hx Hepatitis, Hx Human Immunodeficiency Virus (HIV), Traveled Outside the [place] in Last 30 Days - Family History Known Family History: Positive: Cardiac Disease, Hypertension, Other - cancer Negative: Diabetes - Social History Alcohol Use: None Hx Substance Use: Yes Substance Use Type: Reports: None Substance Use Comment - Amount & Last Used: Ativan Hx Tobacco Use: Yes Smoking Status (MU): Former Smoker Have You Smoked in the Last Year: Yes - had of close relative on 2016 so smoked to cope Review of Systems Positive: Dental Pain - Left upper, Other - Loss of teeth Positive: flank pain - Right, other - dark urine Positive: Myalgia - s/p seizure Neurological: Other - pre-seizure aura, presents s/p seizure (1015 today) All Other Systems Reviewed And Are Negative: Yes Physical Exam - Summary Physical Exam Summary: Gen: well-appearing, no pain distress Skin: warm, color, dry Head: normal Eyes: EOMI, CLAY ENT: Left upper mouth has multiples caries distributed throughout with some gingival swelling Neck: supple, nontender Resp: CTA, breath sounds present Cardio: RRR Abd: soft, nontender Bowel: present Musc: normal, strength/ROM intact Neuro: normal, sensory/motor intact, A&O x3 Psych: affect/mood appropriate Triage Information Reviewed: Yes Vital Signs On Initial Exam: Initial Vitals Temp Pulse Resp BP Pulse Ox 97.7 F 97 20 127/77 100 04/21/17 17:32 04/21/17 17:32 04/21/17 17:32 04/21/17 17:32 04/21/17 17:32 Vital Signs Reviewed: Yes Diagnostics - Vital Signs Vital Signs Temp Pulse Resp BP Pulse Ox 04/21/17 17:49 20 04/21/17 17:35 97.7 F 101 20 127/77 100 04/21/17 17:32 97.7 F 97 20 127/77 100 - Laboratory Lab Results: Lab Results 04/21/17 Range/Units 18:40 WBC 8.3 (3.5-10.8) 10^3/ul RBC 4.34 (4.0-5.4) 10^6/ul Hgb 12.2 (12.0-16.0) g/dl Hct 37 (35-47) % MCV 85 (80-97) fL MCH 28 (27-31) pg MCHC 33 (31-36) g/dl RDW 14 (10.5-15) % Plt Count 273 (150-450) 10^3/ul MPV 8 (7.4-10.4) um3 Neut % (Auto) 63.9 (38-83) % Lymph % (Auto) 25.9 (25-47) % [place] % (Auto) 5.7 (1-9) % Eos % (Auto) 4.5 (0-6) % Baso % (Auto) 0 (0-2) % Absolute Neuts (auto) 5.3 (1.5-7.7) 10^3/ul Absolute Lymphs (auto) 2.2 (1.0-4.8) 10^3/ul Absolute Monos (auto) 0.5 (0-0.8) 10^3/ul Absolute Eos (auto) 0.4 (0-0.6) 10^3/ul Absolute Basos (auto) 0 (0-0.2) 10^3/ul Absolute Nucleated RBC 0 10^3/ul Nucleated RBC % 0 Result Diagrams: 04/21/17 18:40 04/21/17 18:40 Lab Statement: Any lab studies that have been ordered have been reviewed, and results considered in the medical decision making process. Course/Dx - Course Course Of Treatment: Pt is a 36 y/o F with a CC of pre-seizure aura since earlier today that is similar to prior auras resulting in seizures, including one this morning at 1015. Seizure this morning was witnessed by her mother and described as generalized. Notes myalgias s/p seizure. Additionally c/o R flank pain, dark urine, dental pain and tooth loss. NO CRITICAL CARE TIME. DISCHARGE HOME STABLE. - Diagnoses Provider Diagnoses: Epilepsy, Dental infection Discharge - Discharge Plan Condition: Stable Disposition: HOME Prescriptions: Amoxicillin (*) [Amoxicillin 875 MG (*)] 875 mg PO BID #20 tab HYDROcodone/ACETAMIN 5-325 MG* [[place] 5-325 TAB*] 1 tab PO Q6H PRN #10 tab MDD 4 PRN Reason: Pain Patient Education Materials: Epilepsy (ED), Toothache (ED) Referrals: Leatha Coles MD [Primary Care Provider] - Additional Instructions: FOLLOW UP WITH YOUR DOCTOR. RETURN TO THE EMERGENCY DEPARTMENT FOR ANY WORSENING OF YOUR CONDITION OR QUESTIONS OR CONCERNS. The documentation as recorded by the Natalya weller Rebecca accurately reflects the service I personally performed and the decisions made by me, Matti Romero MD.
[2017-04-21 19:49] VITALS: BP 107/72
== END 2017-04-21 19:50 | disposition home or self-care (01) ==
LOC: ED 17:29
DX: R42 Dizziness and giddiness (principal)
CPT/HCPCS: 36415; 80053; 80177; 80183; 81003; 81015; 82550; 83605; 83735; 84702; 85025; 86140; 96374; 96375; 99283; A9270-GY; J2060

== ENCOUNTER 2017-04-27 19:48 | Emergency (ER) | payer OTHER ==
[2017-04-27 20:56] LABS: Hematocrit 36 % (35-47); Hemoglobin 11.7 g/dl (12.0-16.0); Mean Corpuscular HGB Conc 33 g/dl (31-36); Mean Corpuscular Hemoglobin 28 pg (27-31); Mean Corpuscular Volume 86 fL (80-97); Mean Platelet Volume 8 um3 (7.4-10.4); Red Blood Count 4.16 10^6/ul (4.0-5.4); Red Cell Distribution Width 14 % (10.5-15); White Blood Count 6.5 10^3/ul (3.5-10.8)
[2017-04-27 21:10] LABS: ALT 12 U/L (7-52); AST 19 U/L (13-39); Albumin 4.3 g/dL (3.2-5.2); Alkaline Phosphatase 45 U/L (34-104); Anion Gap 6 mmol/L (2-11); BUN/Creatinine Ratio 17.2 (8-20); Blood Urea Nitrogen 10 mg/dL (6-24); CO2 Carbon Dioxide 25 mmol/L (22-32); Calcium 9.2 mg/dL (8.6-10.3); Chloride 104 mmol/L (101-111); Creatine Kinase 51 U/L (10-223); EGFR African American 152.1 (>60); EGFR Non-African American 118.3 (>60); Glucose 88 mg/dL (70-100); Magnesium 2.1 mg/dL (1.9-2.7); Potassium 3.6 mmol/L (3.5-5.0); Sodium 135 mmol/L (133-145); Total Protein 6.3 g/dL (6.4-8.9)
[2017-04-27 21:13] LABS: Urine Bacteria Absent (Absent); Urine Bilirubin Negative (Negative); Urine Glucose Negative (Negative); Urine Nitrite Negative (Negative)
[2017-04-27 21:26] LABS: Alcohol < 10 mg/dL (<10)
[2017-04-27] MEDS ORDERED: LORazepam INJ* 2 MG/ML 1 ML VIAL IV PUSH ONE (23:08)
[2017-04-27] MEDS ORDERED: HYDROcodone/ACETAMIN 5-325 MG* 1 TAB PO ONE (23:09)
--- NOTE | 2017-04-28 00:19 | ED ---
Nico Bolton Alfonso, scribed for Flory Lei MD on 04/27/17 at 2133 . Neurological HPI - HPI Summary HPI Summary: This patient is a 36 year old F with hx AVM, chronic seizure disorder followed by neurology [facility] s/p reported seizure earlier today. The seizure lasted a couple of minutesper pt. Symptoms aggravated by stress and alleviated by spontaneous resolution. She reports dental pain and pain in all extremities. She had an unwitnessed seizure in the ED prior to this evaluation per pt, and reports bitting her lip during the episode. Her auras give "a metallic taste and a copper smell" in her mouth and sinus, respectively. PSHx of two craniotomy with the most recent being in 2013. Currently taking Levetiracetam 100 mg/mL, Clonazepam 1 mg, Oxcarbazepine, Onfi 10 mg, and amoxicillin 875 mg BID. Pt spoke with Dr. Henderson prior to coming to ED who advised pt to take extra doses of her seizure meds to try to avert further seizures. - History of Current Complaint Chief Complaint: EDSeizure Stated Complaint: SEIZURES Time Seen by Provider: 04/27/17 20:25 Hx Obtained From: Patient Onset/Duration: Sudden Onset, Started minutes ago - [place] in ED prior to being seen by provider by pt's report ., Started hours ago - Seizure earlier today, Resolved Timing: Intermittent Episodes Lasting: - minutes Onset Severity: Moderate Seizure Severity: Moderate Number of Seizures: 1 - prior to ED Neurological Deficit Location: Generalized - unknown Headache Location: Temporal (Left) Pain Intensity: 0 Pain Scale Used: 0-10 Numeric Character: Other: - "a metallic taste and a copper smell" in her mouth and sinus , respectively Episode Lasting: Seconds/Minutes - A couple of minutes Syncope Context: Unwitnessed Frequency: Episodes x___ - 1 Seizure Character: Generalized - unknown Aggravating: Stress Alleviating: Spontanious Resolution - Additional Pertinent History Primary Care Physician: [id number] - Allergy/Home Medications Allergies/Adverse Reactions: Allergies Allergy/AdvReac Type Severity Reaction Status Date / Time Bee Venom Allergy Severe Hives Verified 04/27/17 19:56 Morphine Allergy Severe Hives Verified 04/27/17 19:56 Mushroom Extract Complex Allergy Severe Hives Verified 04/27/17 19:56 Sulfa Antibiotics Allergy Intermediate Rash Verified 04/27/17 19:56 Home Medications: Home Medications Ascorbic Acid TAB* [Vitamin C TAB*] 04/27/17 [History] B-Complex Vitamins [Vitamin B Complex] 04/27/17 [History] Cholecalciferol [Vitamin D] 1,000 unit PO 04/27/17 [History] Clonazepam 0.5 mg PO BID PRN 04/27/17 [History Confirmed 04/27/17] Levetiracetam [Keppra LIQ] 300 mg PO QAM 04/27/17 [History Confirmed 04/27/17] PMH/Surg Hx/FS Hx/Imm Hx Previously Healthy: No - AVM,seizure disorder Endocrine/Hematology History: Reports: Hx Anemia - IV iron tx Denies: Hx Anticoagulant Therapy, Hx Diabetes, Hx Thyroid Disease Cardiovascular History: Denies: Hx Congestive Heart Failure, Hx Hypertension, Hx Pacemaker/ICD Comment Only: Other Cardiovascular Problems/Disorders - Arteriovenous malformation - Sx repair in 2008. Right atrial enlargement. 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 RT TEMPORAL LOBE IN 2008 [place] (removed scar tissue). 5 CSECTIONS Hx Anesthesia Reactions: No - Immunization History Date of Tetanus Vaccine: None Date of Influenza Vaccine: None Infectious Disease History: Denies: Hx Hepatitis, Hx Human Immunodeficiency Virus (HIV), Traveled Outside the [place] in Last 30 Days - Family History Known Family History: Positive: Cardiac Disease, Hypertension, Other - cancer Negative: Diabetes - Social History Alcohol Use: None Hx Substance Use: Yes Substance Use Type: Reports: None Substance Use Comment - Amount & Last Used: Ativan Hx Tobacco Use: Yes Smoking Status (MU): Former Smoker Have You Smoked in the Last Year: Yes - had of close relative on 2016 so smoked to cope Review of Systems Constitutional: Negative Positive: Other - dental pain Positive: Dental Pain Cardiovascular: Negative Respiratory: Negative Gastrointestinal: Negative Positive: Myalgia Skin: Negative Neurological: Other - Seizure Positive: Headache Psychological: Normal All Other Systems Reviewed And Are Negative: Yes Physical Exam Triage Information Reviewed: Yes Vital Signs On Initial Exam: Initial Vitals Temp Pulse Resp BP Pulse Ox 98.9 F 87 16 110/55 98 04/27/17 19:49 04/27/17 19:49 04/27/17 19:49 04/27/17 19:49 04/27/17 19:49 Vital Signs Reviewed: Yes Appearance: Positive: No Pain Distress, Well-Nourished, Ill-Appearing Skin: Positive: Warm, Dry, Other - Normal Head/Face: Positive: Other - Screw palpable right frontal; cranial deformities secondary to surgery Eyes: Positive: Conjunctiva Clear ENT: Positive: Normal ENT inspection Dental: Positive: Gross Decay/Caries @ - Multiple sites of decay, Dental Fracture @ - multiple Dental fractures. Negative: Abscess @, Cellulitis @, Bleeding Neck: Positive: Supple, Nontender, No Lymphadenopathy Respiratory/Lung Sounds: Positive: Clear to Auscultation, Breath Sounds Present , Other - No respiratory distress Cardiovascular: Positive: RRR, Pulses are Symmetrical in both Upper and Lower Extremities, Other - Brisk capillary refill. Negative: Murmur Abdomen Description: Positive: Nontender, No Organomegaly, Soft Bowel Sounds: Positive: Present Musculoskeletal: Positive: Strength/ROM Intact. Negative: Edema Left, Edema Right Neurological: Positive: Alert, Oriented to Person Place, Time, CN Intact II- III. Negative: Facial Droop, Focal Deficit @, Slurred Speech Psychiatric: Positive: Normal - [place] Coma Scale Coma Scale Total: 15 Diagnostics - Vital Signs Vital Signs Temp Pulse Resp BP Pulse Ox 04/27/17 19:52 98.9 F 81 18 110/55 97 04/27/17 19:49 98.9 F 87 16 110/55 98 - Laboratory Lab Results: Lab Results 04/27/17 04/27/17 04/27/17 Range/Units 20:47 20:47 20:47 WBC 6.5 (3.5-10.8) 10^3/ul RBC 4.16 (4.0-5.4) 10^6/ul Hgb 11.7 L (12.0-16.0) g/dl Hct 36 (35-47) % MCV 86 (80-97) fL MCH 28 (27-31) pg MCHC 33 (31-36) g/dl RDW 14 (10.5-15) % Plt Count 254 (150-450) 10^3/ul MPV 8 (7.4-10.4) um3 Neut % (Auto) 48.8 (38-83) % Lymph % (Auto) 32.7 (25-47) % [place] % (Auto) 9.5 H (1-9) % Eos % (Auto) 5.2 (0-6) % Baso % (Auto) 3.8 H (0-2) % Absolute Neuts (auto) 3.2 (1.5-7.7) 10^3/ul Absolute Lymphs (auto) 2.1 (1.0-4.8) 10^3/ul Absolute Monos (auto) 0.6 (0-0.8) 10^3/ul Absolute Eos (auto) 0.3 (0-0.6) 10^3/ul Absolute Basos (auto) 0.3 H (0-0.2) 10^3/ul Absolute Nucleated RBC 0.01 10^3/ul Nucleated RBC % 0.1 INR (Anticoag Therapy) 0.93 (0.89-1.11) APTT 31.1 (26.0-36.3) seconds Sodium 135 (133-145) mmol/L Potassium 3.6 (3.5-5.0) mmol/L Chloride 104 (101-111) mmol/L Carbon Dioxide 25 (22-32) mmol/L Anion Gap 6 (2-11) mmol/L BUN 10 (6-24) mg/dL Creatinine 0.58 (0.51-0.95) mg/dL Est GFR ( Amer) 152.1 (>60) Est GFR (Non-Af Amer) 118.3 (>60) BUN/Creatinine Ratio 17.2 (8-20) Glucose 88 (70-100) mg/dL Lactic Acid (0.5-2.0) mmol/L Calcium 9.2 (8.6-10.3) mg/dL Magnesium 2.1 (1.9-2.7) mg/dL Total Bilirubin 0.20 (0.2-1.0) mg/dL AST 19 (13-39) U/L ALT 12 (7-52) U/L Alkaline Phosphatase 45 (34-104) U/L Total Creatine Kinase 51 (10-223) U/L Total Protein 6.3 L (6.4-8.9) g/dL Albumin 4.3 (3.2-5.2) g/dL Globulin 2.0 (2-4) g/dL Albumin/Globulin Ratio 2.2 (1-3) Urine Color Urine Appearance Urine pH (5-9) Ur Specific [place] (1.010-1.030) Urine Protein (Negative) Urine Ketones (Negative) Urine Blood (Negative) Urine Nitrate (Negative) Urine Bilirubin (Negative) Urine Urobilinogen (Negative) Ur Leukocyte Esterase (Negative) Urine WBC (Auto) (Absent) Urine RBC (Auto) (Absent) Ur Squamous Epith Cells (Absent) Amorphous Crystals (Absent) Urine Bacteria (Absent) Urine Glucose (Negative) Urine Ascorbic Acid (Negative) Serum Alcohol < 10 (<10) mg/dL 04/27/17 04/27/17 Range/Units 20:47 20:54 WBC (3.5-10.8) 10^3/ul RBC (4.0-5.4) 10^6/ul Hgb (12.0-16.0) g/dl Hct (35-47) % MCV (80-97) fL MCH (27-31) pg MCHC (31-36) g/dl RDW (10.5-15) % Plt Count (150-450) 10^3/ul MPV (7.4-10.4) um3 Neut % (Auto) (38-83) % Lymph % (Auto) (25-47) % [place] % (Auto) (1-9) % Eos % (Auto) (0-6) % Baso % (Auto) (0-2) % Absolute Neuts (auto) (1.5-7.7) 10^3/ul Absolute Lymphs (auto) (1.0-4.8) 10^3/ul Absolute Monos (auto) (0-0.8) 10^3/ul Absolute Eos (auto) (0-0.6) 10^3/ul Absolute Basos (auto) (0-0.2) 10^3/ul Absolute Nucleated RBC 10^3/ul Nucleated RBC % INR (Anticoag Therapy) (0.89-1.11) APTT (26.0-36.3) seconds Sodium (133-145) mmol/L Potassium (3.5-5.0) mmol/L Chloride (101-111) mmol/L Carbon Dioxide (22-32) mmol/L Anion Gap (2-11) mmol/L BUN (6-24) mg/dL Creatinine (0.51-0.95) mg/dL Est GFR ( Amer) (>60) Est GFR (Non-Af Amer) (>60) BUN/Creatinine Ratio (8-20) Glucose (70-100) mg/dL Lactic Acid 0.6 (0.5-2.0) mmol/L Calcium (8.6-10.3) mg/dL Magnesium (1.9-2.7) mg/dL Total Bilirubin (0.2-1.0) mg/dL AST (13-39) U/L ALT (7-52) U/L Alkaline Phosphatase (34-104) U/L Total Creatine Kinase (10-223) U/L Total Protein (6.4-8.9) g/dL Albumin (3.2-5.2) g/dL Globulin (2-4) g/dL Albumin/Globulin Ratio (1-3) Urine Color Yellow Urine Appearance Cloudy Urine pH 7.0 (5-9) Ur Specific [place] 1.018 (1.010-1.030) Urine Protein Negative (Negative) Urine Ketones Negative (Negative) Urine Blood Negative (Negative) Urine Nitrate Negative (Negative) Urine Bilirubin Negative (Negative) Urine Urobilinogen Negative (Negative) Ur Leukocyte Esterase Trace H (Negative) Urine WBC (Auto) Trace(0-5/hpf) (Absent) Urine RBC (Auto) Trace(0-2/hpf) (Absent) Ur Squamous Epith Cells Present H (Absent) Amorphous Crystals Present H (Absent) Urine Bacteria Absent (Absent) Urine Glucose Negative (Negative) Urine Ascorbic Acid * H (Negative) Serum Alcohol (<10) mg/dL Result Diagrams: 04/27/17 20:47 04/27/17 20:47 Lab Statement: Any lab studies that have been ordered have been reviewed, and results considered in the medical decision making process. - EKG 2352 Cardiac Rate: NL - 64 bpm EKG Rhythm: Sinus Rhythm EKG Interpretation: Nl AV/IV CT, nnl QTC, nl axis, no acute changes Re-Evaluation - Re-Evaluation First Eval Re-Evaluation Time: 00:15 - agreeable to DC. Pain improved. Change: Improved Course/Dx - Course Assessment/Plan: This patient is a 36 year old F presenting to [facility] s/p seizure earlier today that lasted a few minutes. Symptoms aggravated by stress and alleviated by spontaneous resolution. She reports dental pain and pain in all extremities. She had an unwitnessed seizure in the ED prior to this evaluation, and reports bitting her lip during the episode. Her auras give "a metallic taste and a copper smell" in her mouth and sinus, respectively. PSHx of two craniotomy with the most recent being in 2013. Pt's labs were done with no significant abnormalities noted. Serum levels of pt's antiseizure meds sent (not Onfi). Pt given ativan 1mg IV and norco 5/325 mg. Pt is agreeable to discharge and will f/u with neurology. - Differential Dx Differential Diagnoses Neuro: Positive: Anxiety, Metabolic Abnormality, Seizure Disorder - Diagnoses Provider Diagnoses: Seizure, Epilepsy Discharge - Discharge Plan Condition: Stable Disposition: HOME Patient Education Materials: Epilepsy (ED) Referrals: Leatha Coles MD [Primary Care Provider] - 3 Days The documentation as recorded by the Nico weller Alfonso accurately reflects the service I personally performed and the decisions made by , Flory Lei MD.
[2017-04-28 00:38] VITALS: BP 113/79
[2017-04-28 01:38] LABS: Benzodiazepine Urine Screen Presumptive Positive (None Detect)
[2017-04-30 16:03] LABS: Levetiracetam 46.6 mcg/mL
== END 2017-04-28 00:45 | disposition home or self-care (01) ==
LOC: ED 19:48
DX: G40.802 Other epilepsy, not intractable, without status epilepticus (principal); K08.89 Other specified disorders of teeth and supporting structures; M79.1 Myalgia; R51 Headache; Z87.891 Personal history of nicotine dependence
CPT/HCPCS: 36415; 80053; 80177; 80183; 80307; 80320; 81003; 81015; 82550; 83605; 83735; 85025; 85610; 85730; 87077; 87086; 87186; 93005; 96374; 99283; G0480; J2060

== ENCOUNTER 2017-04-29 17:47 | Emergency (ER) | payer OTHER ==
[2017-04-29 18:17] LABS: Hematocrit 34 % (35-47); Hemoglobin 11.2 g/dl (12.0-16.0); Mean Corpuscular HGB Conc 33 g/dl (31-36); Mean Corpuscular Hemoglobin 29 pg (27-31); Mean Corpuscular Volume 86 fL (80-97); Mean Platelet Volume 8 um3 (7.4-10.4); Red Blood Count 3.94 10^6/ul (4.0-5.4); Red Cell Distribution Width 15 % (10.5-15); White Blood Count 9.2 10^3/ul (3.5-10.8)
[2017-04-29 18:33] LABS: Albumin 4.2 g/dL (3.2-5.2); BUN/Creatinine Ratio 18.2 (8-20); Calcium 9.5 mg/dL (8.6-10.3); EGFR African American 161.8 (>60); EGFR Non-African American 125.8 (>60); Globulin 2.1 g/dL (2-4); Potassium 3.6 mmol/L (3.5-5.0); Total Bilirubin 0.2 mg/dL (0.2-1.0); Total Protein 6.3 g/dL (6.4-8.9)
[2017-04-29 22:36] VITALS: BP 105/75
--- NOTE | 2017-05-01 00:54 | ED ---
Natalie Bolton Alok, scribed for Dylon Dean MD on 04/29/17 at 1917 . Syncope/Near Syncope - HPI Summary HPI Summary: 36F presents with 3 seizure-like episodes while at home witnessed by her family consisting of body tremors. Pt episodes lasted 4 minutes, 5 minutes, and 9 minutes respectively. Pt also notes BHATIA, visual aura, and a metallic taste. Pt also notes lack of sleep and recent stress at home. PMHx includes epilepsy and h /o of seizure. Pt medications include but are not limited to Levetiracetam, Trileptal, Lorazepam, Onfi, and Klonopin. Pt also was recently diagnosed with a dental abscess and is currently still taking amoxicillin. - History Of Current Complaint Chief Complaint: EDSeizure Time Seen by Provider: 04/29/17 17:52 Hx Obtained From: Patient Onset/Duration: Lasting Minutes, Resolved Timing: Intermittent Episode Lasting - Minutes Context: Witnessed Activity At Onset: At Rest Associated Head Trauma: No Aggravating Factor(s): Other - recent stress Alleviating Factor(s): Nothing Associated Signs And Symptoms: Headache, Other - visual aura, metallic taste - Allergies/Home Medications Allergies/Adverse Reactions: Allergies Allergy/AdvReac Type Severity Reaction Status Date / Time Bee Venom Allergy Severe Hives Verified 04/27/17 19:56 Morphine Allergy Severe Hives Verified 04/27/17 19:56 Mushroom Extract Complex Allergy Severe Hives Verified 04/27/17 19:56 Sulfa Antibiotics Allergy Intermediate Rash Verified 04/27/17 19:56 Home Medications: Home Medications Citalopram TAB* [CeleXA TAB*] 10 mg PO DAILY 04/29/17 [History Confirmed ] Clobazam TAB (NF) [Onfi TAB(NF)] 5 mg PO BID 04/29/17 [History Confirmed ] Potassium Chlor TAB* [Klor Con ER TAB*] 10 meq PO DAILY 04/29/17 [History Confirmed 04/29/17] PMH/Surg Hx/FS Hx/Imm Hx Endocrine/Hematology History: Reports: Hx Anemia - IV iron tx Denies: Hx Anticoagulant Therapy, Hx Diabetes, Hx Thyroid Disease Cardiovascular History: Denies: Hx Congestive Heart Failure, Hx Hypertension, Hx Pacemaker/ICD Comment Only: Other Cardiovascular Problems/Disorders - Arteriovenous malformation - Sx repair in 2008. Right atrial enlargement. 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 RT TEMPORAL LOBE IN 2008 [place] (removed scar tissue). 5 CSECTIONS Hx Anesthesia Reactions: No - Immunization History Date of Tetanus Vaccine: None Date of Influenza Vaccine: None Infectious Disease History: No Infectious Disease History: Denies: Hx Hepatitis, Hx Human Immunodeficiency Virus (HIV), Traveled Outside the in Last 30 Days - Family History Known Family History: Positive: Cardiac Disease, Hypertension, Other - cancer Negative: Diabetes - Social History Occupation: Unemployed Lives: With Family Alcohol Use: None Hx Substance Use: Yes Substance Use Type: Reports: None Substance Use Comment - Amount & Last Used: Ativan Hx Tobacco Use: Yes Smoking Status (MU): Former Smoker Have You Smoked in the Last Year: Yes - had of close relative on 2016 so smoked to cope Review of Systems Negative: Fever, Chills Negative: Erythema Negative: Sore Throat Negative: Chest Pain Negative: Shortness Of Breath, Cough Negative: Abdominal Pain, Vomiting, Nausea Negative: dysuria, hematuria Positive: Other - Body tremors . Negative: Myalgia, Edema Negative: Rash Neurological: Other - Negative: Dizziness Positive: Headache, Syncope All Other Systems Reviewed And Are Negative: Yes Physical Exam - Summary Physical Exam Summary: Constitutional: Well-developed, Well-nourished, Alert. (-) Distressed Skin: Warm, Dry HENT: Normocephalic; Atraumatic Eyes: Conjunctiva normal Neck: Musculoskeletal ROM normal neck. (-) JVD, (-) Stridor, (-) Tracheal deviation Cardio: Rhythm regular, rate normal, Heart sounds normal; Intact distal pulses; The pedal pulses are 2+ and symmetric. Radial pulses are 2+ and symmetric. (-) Murmur Pulmonary/Chest wall: Effort normal. (-) Respiratory distress, (-) Wheezes, (-) Rales Abd: Soft, (-) Tenderness, (-) Distension, (-) Guarding, (-) Rebound Musculoskeletal: (-) Edema Lymph: (-) Cervical adenopathy Neuro: Alert, Oriented x3 Psych: Mood and affect Normal Triage Information Reviewed: Yes Vital Signs On Initial Exam: Initial Vitals Pulse Pulse Ox 83 97 04/29/17 18:02 04/29/17 18:02 Vital Signs Reviewed: Yes - [place] Coma Scale Coma Scale Total: 15 Diagnostics - Vital Signs Vital Signs Temp Pulse Resp BP Pulse Ox 04/29/17 18:30 70 12 99/70 98 04/29/17 18:04 98.8 F 92 18 100/72 97 04/29/17 18:03 82 100/72 96 04/29/17 18:02 83 97 - Laboratory Lab Results: Lab Results 04/29/17 04/29/17 04/29/17 Range/Units 18:00 18:00 18:00 WBC 9.2 (3.5-10.8) 10^3/ul RBC 3.94 L (4.0-5.4) 10^6/ul Hgb 11.2 L (12.0-16.0) g/dl Hct 34 L (35-47) % MCV 86 (80-97) fL MCH 29 (27-31) pg MCHC 33 (31-36) g/dl RDW 15 (10.5-15) % Plt Count 237 (150-450) 10^3/ul MPV 8 (7.4-10.4) um3 Neut % (Auto) 58.8 (38-83) % Lymph % (Auto) 29.6 (25-47) % [place] % (Auto) 7.5 (1-9) % Eos % (Auto) 3.2 (0-6) % Baso % (Auto) 0.9 (0-2) % Absolute Neuts (auto) 5.4 (1.5-7.7) 10^3/ul Absolute Lymphs (auto) 2.7 (1.0-4.8) 10^3/ul Absolute Monos (auto) 0.7 (0-0.8) 10^3/ul Absolute Eos (auto) 0.3 (0-0.6) 10^3/ul Absolute Basos (auto) 0.1 (0-0.2) 10^3/ul Absolute Nucleated RBC 0.02 10^3/ul Nucleated RBC % 0.2 INR (Anticoag Therapy) 0.91 (0.89-1.11) Sodium 136 (133-145) mmol/L Potassium 3.6 (3.5-5.0) mmol/L Chloride 105 (101-111) mmol/L Carbon Dioxide 25 (22-32) mmol/L Anion Gap 6 (2-11) mmol/L BUN 10 (6-24) mg/dL Creatinine 0.55 (0.51-0.95) mg/dL Est GFR ( Amer) 161.8 (>60) Est GFR (Non-Af Amer) 125.8 (>60) BUN/Creatinine Ratio 18.2 (8-20) Glucose 91 (70-100) mg/dL Lactic Acid (0.5-2.0) mmol/L Calcium 9.5 (8.6-10.3) mg/dL Magnesium 2.0 (1.9-2.7) mg/dL Total Bilirubin 0.20 (0.2-1.0) mg/dL AST 18 (13-39) U/L ALT 12 (7-52) U/L Alkaline Phosphatase 48 (34-104) U/L Total Protein 6.3 L (6.4-8.9) g/dL Albumin 4.2 (3.2-5.2) g/dL Globulin 2.1 (2-4) g/dL Albumin/Globulin Ratio 2.0 (1-3) 04/29/17 Range/Units 18:00 WBC (3.5-10.8) 10^3/ul RBC (4.0-5.4) 10^6/ul Hgb (12.0-16.0) g/dl Hct (35-47) % MCV (80-97) fL MCH (27-31) pg MCHC (31-36) g/dl RDW (10.5-15) % Plt Count (150-450) 10^3/ul MPV (7.4-10.4) um3 Neut % (Auto) (38-83) % Lymph % (Auto) (25-47) % [place] % (Auto) (1-9) % Eos % (Auto) (0-6) % Baso % (Auto) (0-2) % Absolute Neuts (auto) (1.5-7.7) 10^3/ul Absolute Lymphs (auto) (1.0-4.8) 10^3/ul Absolute Monos (auto) (0-0.8) 10^3/ul Absolute Eos (auto) (0-0.6) 10^3/ul Absolute Basos (auto) (0-0.2) 10^3/ul Absolute Nucleated RBC 10^3/ul Nucleated RBC % INR (Anticoag Therapy) (0.89-1.11) Sodium (133-145) mmol/L Potassium (3.5-5.0) mmol/L Chloride (101-111) mmol/L Carbon Dioxide (22-32) mmol/L Anion Gap (2-11) mmol/L BUN (6-24) mg/dL Creatinine (0.51-0.95) mg/dL Est GFR ( Amer) (>60) Est GFR (Non-Af Amer) (>60) BUN/Creatinine Ratio (8-20) Glucose (70-100) mg/dL Lactic Acid 1.4 (0.5-2.0) mmol/L Calcium (8.6-10.3) mg/dL Magnesium (1.9-2.7) mg/dL Total Bilirubin (0.2-1.0) mg/dL AST (13-39) U/L ALT (7-52) U/L Alkaline Phosphatase (34-104) U/L Total Protein (6.4-8.9) g/dL Albumin (3.2-5.2) g/dL Globulin (2-4) g/dL Albumin/Globulin Ratio (1-3) Result Diagrams: 04/29/17 18:00 04/29/17 18:00 Lab Statement: Any lab studies that have been ordered have been reviewed, and results considered in the medical decision making process. - EKG 1848 Cardiac Rate: NL - 63 bpm EKG Rhythm: Sinus Rhythm EKG Interpretation: No STEMI Course/Dx Assessment/Plan: Discussed patient care with patient's mother @ [id number] - can confirm 3 seizures today regaining consciousness and full alertness in between - Diagnoses Provider Diagnoses: Seizure - Physician Notifications Discussed Care of Patient With: Ezequiel Henderson - recommend discharge of pt and no changes to medication Time Discussed With Above Provider: 21:44 Discharge - Discharge Plan Condition: Stable Disposition: HOME Patient Education Materials: Epilepsy (ED) The documentation as recorded by the Natalie weller Alok accurately reflects the service I personally performed and the decisions made by Jermaine coker Jerry, MD.
[2017-05-01 12:07] LABS: Levetiracetam 66.4 mcg/mL
== END 2017-04-29 22:03 | disposition home or self-care (01) ==
LOC: ED 17:47
DX: G40.909 Epilepsy, unspecified, not intractable, without status epilepticus (principal); R51 Headache; Z88.5 Allergy status to narcotic agent; Z88.2 Allergy status to sulfonamides; Z91.030 Bee allergy status; Z87.891 Personal history of nicotine dependence; D64.9 Anemia, unspecified
CPT/HCPCS: 36415; 80053; 80177; 80183; 83605; 83735; 85025; 85610; 93005; 99282

== ENCOUNTER 2017-05-05 19:25 | Emergency (ER) | payer OTHER ==
[2017-05-05] MEDS ORDERED: NS 0.9% 1000 ML* 1,000 ML IV ONE (20:01)
[2017-05-05] MEDS ORDERED: diPHENhydraMINE IV* 50 MG in NS 0.9% 50 ML* 50 ML IVPB ONE (20:01)
[2017-05-05 20:48] LABS: Hematocrit 34 % (35-47); Hemoglobin 10.9 g/dl (12.0-16.0); Mean Corpuscular HGB Conc 32 g/dl (31-36); Mean Corpuscular Hemoglobin 28 pg (27-31); Mean Corpuscular Volume 85 fL (80-97); Mean Platelet Volume 8 um3 (7.4-10.4); Red Blood Count 3.98 10^6/ul (4.0-5.4); Red Cell Distribution Width 14 % (10.5-15); White Blood Count 6.8 10^3/ul (3.5-10.8)
[2017-05-05 20:50] LABS: Calcium 9.1 mg/dL (8.6-10.3); EGFR African American 180.6 (>60); EGFR Non-African American 140.4 (>60); Globulin 2.1 g/dL (2-4); Magnesium 1.9 mg/dL (1.9-2.7); Potassium 3.7 mmol/L (3.5-5.0); Total Bilirubin 0.2 mg/dL (0.2-1.0); Total Protein 6.1 g/dL (6.4-8.9)
[2017-05-05 20:59] LABS: Urine Bacteria 3+ (Absent); Urine Bilirubin Negative (Negative); Urine Glucose Negative (Negative); Urine Nitrite Negative (Negative)
[2017-05-05] MEDS ORDERED: clonazePAM TAB(*) 1 MG PO ONE (21:18)
[2017-05-05 21:25] LABS: TSH (Thyroid Stimulating Horm) 1.8 mcIU/mL (0.34-5.60)
[2017-05-05] MEDS ORDERED: Ondansetron INJ* 2 MG/ML VIAL IV ONE (21:55)
[2017-05-05] MEDS ORDERED: clonazePAM TAB(*) 0.5 MG PO ONE (22:00)
--- NOTE | 2017-05-05 23:05 | ED ---
Topher Bolton Aidan, scribed for Jackie Snow MD on 05/05/17 at 2033 . Dizziness - HPI Summary HPI Summary: 36 y/o female presents to the ED via ems with a complaint of acute, moderate episodes of dizziness and acute, [id number] visual symptoms that present during pre-seizure episodes. Pt has a history of epileptic and stress seizures. She takes trileptal, colozepan, and a new medication for seizures that she started on 04/23/17. Today, during a pre-seizure episode that lasted roughly 2 hours, she had dizziness described as seeing the room spin, nausea, speech problems, and the acute visual symptoms. Though she fell during the episode, she denies hitting her head or any LOC. Other associated symptoms include itchy hives on the lower extremities bilaterally and on the left shoulder. Pt mentions having lots of recent stress involving her family and concerns over her newly-developed, pre-seizure symptoms. Lastly, she recently started smoking again. - History Of Current Complaint Chief Complaint: EDDizziness Stated Complaint: DIZZINESS Time Seen by Provider: 05/05/17 19:31 Hx Obtained From: Patient Onset/Duration: Still Present - while in the ED, she experienced the visual symptoms she gets during pre-seizure episodes Timing: Intermittent Episode Lasting Severity Initially: Moderate Severity Currently: Moderate Character: Room Spinning - describes her dizziness Aggravating Factor(s): Other - unknown Alleviating Factor(s): Other - unknown Associated Signs And Symptoms: Positive: Nausea, Visual Changes - acute, Slurred Speech - speech problems during pre-seizure episodes, Other: - itchy hives on lower extremities and left shoulder Related History: Similar Episode/Dx as - Pt has epileptic and stress seizures - Risk Factors Cardiac Risk Factors: Smoking CVA Risk Factor: Smoking - Allergies/Home Medications Allergies/Adverse Reactions: Allergies Allergy/AdvReac Type Severity Reaction Status Date / Time Bee Venom Allergy Severe Hives Verified 05/05/17 19:54 Morphine Allergy Severe Hives Verified 05/05/17 19:54 Mushroom Extract Complex Allergy Severe Hives Verified 05/05/17 19:54 Sulfa Antibiotics Allergy Intermediate Rash Verified 05/05/17 19:54 PMH/Surg Hx/FS Hx/Imm Hx Endocrine/Hematology History: Reports: Hx Anemia - IV iron tx Denies: Hx Anticoagulant Therapy, Hx Diabetes, Hx Thyroid Disease Cardiovascular History: Denies: Hx Congestive Heart Failure, Hx Hypertension, Hx Pacemaker/ICD Comment Only: Other Cardiovascular Problems/Disorders - Arteriovenous malformation - Sx repair in 2008. Right atrial enlargement. 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 RT TEMPORAL LOBE IN 2008 [place] (removed scar tissue). 5 CSECTIONS Hx Anesthesia Reactions: No - Immunization History Date of Tetanus Vaccine: None Date of Influenza Vaccine: None Infectious Disease History: No Infectious Disease History: Denies: Hx Hepatitis, Hx Human Immunodeficiency Virus (HIV), Traveled Outside the [place] in Last 30 Days - Family History Known Family History: Positive: Cardiac Disease, Hypertension, Other - cancer Negative: Diabetes - Social History Occupation: Unemployed Lives: Alone Alcohol Use: None Hx Substance Use: Yes Substance Use Type: Reports: None Substance Use Comment - Amount & Last Used: Ativan Hx Tobacco Use: Yes Smoking Status (MU): Former Smoker Have You Smoked in the Last Year: Yes - had of close relative on 2016 so smoked to cope Review of Systems Constitutional: Negative Positive: Blurred Vision - visual changes/symptoms during pre-seizure episodes. Negative: Photophobia, Diplopia, Drainage, Erythema ENT: Negative Cardiovascular: Negative Respiratory: Negative Positive: Nausea. Negative: Abdominal Pain, Vomiting, Diarrhea Genitourinary: Negative Musculoskeletal: Negative Positive: Rash - itchy hives on lower extremities and left shoulder. Negative: Bruising Neurological: Other - dizziness during pre-seizure episodes Positive: Slurred Speech - speech problems during pre-seizure episodes. Negative: Headache, Weakness, Paresthesia, Numbness, Syncope Psychological: Normal All Other Systems Reviewed And Are Negative: Yes Physical Exam - Summary Physical Exam Summary: General: Well appearing, no pain distress Skin: Warm, Skin Color Reflects Adequate Perfusion, Dry Eyes: EOMI, CLAY, no nystagmus ENT: Pharynx normal, TMs normal Neck: Supple, nontender Respiratory: CTA, breath sounds present, no rhonchi, no wheezes, no rales Cardiovascular: RRR, no murmur, no rub, no gallop Abdomen: Soft, nontender, Non-distended, no guarding, no rebound Bowel: Present Musculoskeletal: GIO, No edema Neuro: Sensory/motor intact, A&Ox3, CN intact 2-12, cerebellar signs normal Psych: Affect/mood appropriate Triage Information Reviewed: Yes Vital Signs On Initial Exam: Initial Vitals Temp Pulse Resp BP Pulse Ox 97.8 F 91 16 126/81 98 05/05/17 19:54 05/05/17 19:54 05/05/17 19:54 05/05/17 19:54 05/05/17 19:54 Vital Signs Reviewed: Yes - [place] Coma Scale Coma Scale Total: 15 Diagnostics - Vital Signs Vital Signs Temp Pulse Resp BP Pulse Ox 05/05/17 19:55 97.8 F 91 16 126/81 98 05/05/17 19:54 97.8 F 91 16 126/81 98 - Laboratory Lab Results: Lab Results 05/05/17 05/05/17 05/05/17 Range/Units 20:30 20:30 20:45 WBC 6.8 (3.5-10.8) 10^3/ul RBC 3.98 L (4.0-5.4) 10^6/ul Hgb 10.9 L (12.0-16.0) g/dl Hct 34 L (35-47) % MCV 85 (80-97) fL MCH 28 (27-31) pg MCHC 32 (31-36) g/dl RDW 14 (10.5-15) % Plt Count 221 (150-450) 10^3/ul MPV 8 (7.4-10.4) um3 Neut % (Auto) 54.4 (38-83) % Lymph % (Auto) 34.0 (25-47) % [place] % (Auto) 7.3 (1-9) % Eos % (Auto) 3.8 (0-6) % Baso % (Auto) 0.5 (0-2) % Absolute Neuts (auto) 3.7 (1.5-7.7) 10^3/ul Absolute Lymphs (auto) 2.3 (1.0-4.8) 10^3/ul Absolute Monos (auto) 0.5 (0-0.8) 10^3/ul Absolute Eos (auto) 0.3 (0-0.6) 10^3/ul Absolute Basos (auto) 0 (0-0.2) 10^3/ul Absolute Nucleated RBC 0.02 10^3/ul Nucleated RBC % 0.3 Sodium 133 (133-145) mmol/L Potassium 3.7 (3.5-5.0) mmol/L Chloride 103 (101-111) mmol/L Carbon Dioxide 24 (22-32) mmol/L Anion Gap 6 (2-11) mmol/L BUN 9 (6-24) mg/dL Creatinine 0.50 L (0.51-0.95) mg/dL Est GFR ( Amer) 180.6 (>60) Est GFR (Non-Af Amer) 140.4 (>60) BUN/Creatinine Ratio 18.0 (8-20) Glucose 90 (70-100) mg/dL Calcium 9.1 (8.6-10.3) mg/dL Magnesium 1.9 (1.9-2.7) mg/dL Total Bilirubin 0.20 (0.2-1.0) mg/dL AST 17 (13-39) U/L ALT 12 (7-52) U/L Alkaline Phosphatase 44 (34-104) U/L Total Protein 6.1 L (6.4-8.9) g/dL Albumin 4.0 (3.2-5.2) g/dL Globulin 2.1 (2-4) g/dL Albumin/Globulin Ratio 1.9 (1-3) TSH 1.80 (0.34-5.60) mcIU/mL Urine Color Yellow Urine Appearance Cloudy Urine pH 7.0 (5-9) Ur Specific [place] 1.013 (1.010-1.030) Urine Protein Negative (Negative) Urine Ketones Negative (Negative) Urine Blood Negative (Negative) Urine Nitrate Negative (Negative) Urine Bilirubin Negative (Negative) Urine Urobilinogen Negative (Negative) Ur Leukocyte Esterase Trace H (Negative) Urine WBC (Auto) Trace(0-5/hpf) (Absent) Urine RBC (Auto) Absent (Absent) Ur Squamous Epith Cells Present H (Absent) Urine Bacteria 3+ H (Absent) Urine Glucose Negative (Negative) Urine Ascorbic Acid * H (Negative) Result Diagrams: 05/05/17 20:30 05/05/17 20:30 Lab Statement: Any lab studies that have been ordered have been reviewed, and results considered in the medical decision making process. Re-Evaluation - Re-Evaluation First Eval Re-Evaluation Time: 21:14 - Pt claims to be having an aura now. She will be given 1mg of colozepan. Change: Worse Dizzy Course/Dx - Course Course Of Treatment: 36 yo female with extensive sz history having vertigo/ visual changes today mostly seeing disjointed images (curtain sam appears to be broken in half instead of whole). Neuro exam normal she did take a rescue dose of klonopin in the am when she had an aura but these symptoms came on during the evening and she felt like she was going to pass out. The case was discussed with Dr. Coles her neurologist who suggested that a keppra and a trileptal level be taken in case her symptoms were related to her levels. She suggested trying to hold off on giving the pt klonopin, but when pt was re-evaluated she said she was having increased aura and so she was given klonopin, she is now feeling much better and is ready to go home. of note she does also have hives that she has been experiencing for the last 3 days no sob - Diagnoses Provider Diagnoses: seizure aura, Vertigo - Provider Notifications Discussed Care Of Patient With: Leatha Coles - Neurology Time Discussed With Above Provider: 21:10 - Dr. Snow discussed the patient's care with Dr. Coles to determine if the patient has psychogenic sx prior to re- evaluation. Discharge - Discharge Plan Condition: Stable Disposition: HOME Discharge Disposition Comment: Please follow up with your primary within 3 days. Patient Education Materials: Recurrent Seizures in Adults (ED), Vertigo (ED) Referrals: Leatha Coles MD [Primary Care Provider] - The documentation as recorded by the Topher weller Aidan accurately reflects the service I personally performed and the decisions made by me, Jackie Snow MD.
[2017-05-05 23:12] VITALS: BP 92/50
== END 2017-05-05 23:13 | disposition home or self-care (01) ==
LOC: ED 19:25
DX: R42 Dizziness and giddiness (principal); R56.9 Unspecified convulsions; H53.8 Other visual disturbances; Z87.891 Personal history of nicotine dependence
CPT/HCPCS: 36415; 80053; 80177; 80183; 81003; 81015; 83735; 84443; 85025; 87086; 96374; 99284; A9270-GY; J1200; J2405

== ENCOUNTER 2017-05-10 15:51 | Emergency (ER) | payer OTHER ==
[2017-05-10 16:19] VITALS: BP 105/66
--- NOTE | 2017-05-10 18:57 | ED ---
Myrna Bolton Edward, scribed for Matti Romero MD on 05/10/17 at 1642 . Neurological HPI - HPI Summary HPI Summary: 36 y/o female presents to ED with acute on chronic weakness and sensations of burning on her left side, in addition to throbbing, which the patient states is new. Symptoms started at around 14:55 this afternoon and the patient took 0.5 mg Klonopin at 15:00 to alleviate symptoms.. Patient repeatedly describes feelings of a "bad aura," which she uses to describe feelings of an impending seizure. PMHx seizures. Patient states no changes to her medications recently. - History of Current Complaint Chief Complaint: EDNeurologicalDeficit Stated Complaint: SEIZURE Time Seen by Provider: 05/10/17 16:31 Hx Obtained From: Patient Onset/Duration: Gradual Onset Timing: Intermittent Episodes Lasting: Neurological Deficit Location: LUE, LLE Pain Intensity: 0 Character: Weak - Weakness and burning on left side Associated Signs and Symptoms: Positive: Weakness - Left extremities - Additional Pertinent History Primary Care Physician: CORAL - Allergy/Home Medications Allergies/Adverse Reactions: Allergies Allergy/AdvReac Type Severity Reaction Status Date / Time Bee Venom Allergy Severe Hives Verified 05/10/17 17:45 Morphine Allergy Severe Hives Verified 05/10/17 17:45 Mushroom Extract Complex Allergy Severe Hives Verified 05/10/17 17:45 Sulfa Antibiotics Allergy Intermediate Rash Verified 05/10/17 17:45 PMH/Surg Hx/FS Hx/Imm Hx Previously Healthy: No Endocrine/Hematology History: Reports: Hx Anemia - IV iron tx Denies: Hx Anticoagulant Therapy, Hx Diabetes, Hx Thyroid Disease Cardiovascular History: Denies: Hx Congestive Heart Failure, Hx Hypertension, Hx Pacemaker/ICD Comment Only: Other Cardiovascular Problems/Disorders - Arteriovenous malformation - Sx repair in 2008. Right atrial enlargement. 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 RT TEMPORAL LOBE IN 2008 [place] (removed scar tissue). 5 CSECTIONS Hx Anesthesia Reactions: No - Immunization History Date of Tetanus Vaccine: None Date of Influenza Vaccine: None Infectious Disease History: Denies: Hx Hepatitis, Hx Human Immunodeficiency Virus (HIV), Traveled Outside the [place] in Last 30 Days - Family History Known Family History: Positive: Cardiac Disease, Hypertension, Other - cancer Negative: Diabetes - Social History Alcohol Use: None Hx Substance Use: Yes Substance Use Type: Reports: None Substance Use Comment - Amount & Last Used: Ativan Hx Tobacco Use: Yes Smoking Status (MU): Former Smoker Have You Smoked in the Last Year: Yes - had of close relative on 2016 so smoked to cope Review of Systems Constitutional: Negative Eyes: Negative ENT: Negative Cardiovascular: Negative Respiratory: Negative Gastrointestinal: Negative Genitourinary: Negative Musculoskeletal: Negative Skin: Negative Neurological: Other - Burning and throbbing on left side. Metallic taste, copper smell Positive: Weakness - Left side Psychological: Normal All Other Systems Reviewed And Are Negative: Yes Physical Exam Triage Information Reviewed: Yes Vital Signs On Initial Exam: Initial Vitals Temp Pulse Resp BP Pulse Ox 98.4 F 87 18 105/66 100 05/10/17 16:09 05/10/17 16:09 05/10/17 16:09 05/10/17 16:09 05/10/17 16:09 Vital Signs Reviewed: Yes Appearance: Positive: Well-Appearing, No Pain Distress, Well-Nourished Skin: Positive: Warm, Skin Color Reflects Adequate Perfusion, Dry Head/Face: Positive: Normal Head/Face Inspection Eyes: Positive: Normal, EOMI, CLAY ENT: Positive: Normal ENT inspection Neck: Positive: Supple, Nontender Respiratory/Lung Sounds: Positive: Clear to Auscultation, Breath Sounds Present Cardiovascular: Positive: RRR Abdomen Description: Positive: Nontender, Soft Bowel Sounds: Positive: Present Musculoskeletal: Positive: Normal, Strength/ROM Intact Neurological: Positive: Facial Symmetry - No facial droop, Other - Not moving left arm or left leg Psychiatric: Positive: Normal, Affect/Mood Appropriate Diagnostics - Vital Signs Vital Signs Temp Pulse Resp BP Pulse Ox 05/10/17 16:09 98.4 F 87 18 105/66 100 - Laboratory Lab Statement: Any lab studies that have been ordered have been reviewed, and results considered in the medical decision making process. Course/Dx - Course Course Of Treatment: NO CRITICAL CARE TIME. DR SLATER, NEUROLOGY, SAW PATIENT IN ED. DISCHARGE HOME STABLE. Assessment/Plan: 18:53 - Discussed care with Dr. Leatha Slater, who noted that the patient's L and R extremitiy weakness is an aspect of the patient's seizures and that the patient is OK to be discharged home. - Diagnoses Provider Diagnoses: Epilepsy Discharge - Discharge Plan Condition: Stable Disposition: HOME Patient Education Materials: Epilepsy (ED) Referrals: Leatha Slater MD [Primary Care Provider] - Additional Instructions: FOLLOW UP WITH DR SLATER. RETURN TO THE EMERGENCY DEPARTMENT FOR ANY WORSENING OF YOUR CONDITION OR QUESTIONS OR CONCERNS. The documentation as recorded by the Myrna weller Edward accurately reflects the service I personally performed and the decisions made by me, Matti Romero MD.
== END 2017-05-10 19:26 | disposition home or self-care (01) ==
LOC: ED 15:51
DX: G40.909 Epilepsy, unspecified, not intractable, without status epilepticus (principal); R53.1 Weakness; Z87.891 Personal history of nicotine dependence
CPT/HCPCS: 99282

== ENCOUNTER 2017-05-20 22:40 | Emergency (ER) | payer OTHER ==
--- NOTE | 2017-05-20 23:15 | ED ---
Shanelle Bolton SooYoung, scribed for Nadeem Mann MD on 05/20/17 at 2315 . Neurological HPI - HPI Summary HPI Summary: A 36 y/o F BIBA presents to ED after multiple sz [employer]. Per EMS report, pt had a sz while in the shower, family found her lying the bath tub; pt has neck and back pain, rated as a 10/10; pt is unsure if she hit her head. Pert PMHx: sz. Per pt, she believes she had [address] Coles, neuro, and is scheduled to see her tomorrow. Prior to today, pt's last sz was last week. Pt notes having a L lower tooth infection that she thinks may aggravating the sz. She is scheduled to see a dentist in two days. Took Ibuprofen and Tylenol earlier today for the tooth pain. - History of Current Complaint Chief Complaint: EDSeizure Stated Complaint: SEIZURES Time Seen by Provider: 05/20/17 22:57 Hx Obtained From: Patient, EMS Onset/Duration: Sudden Onset, Resolved Number of Seizures: 2 Pain Intensity: 10 Pain Scale Used: 0-10 Numeric Syncope Context: Unwitnessed Associated Signs and Symptoms: Positive: Neck Pain/Stiffness - Additional Pertinent History Primary Care Physician: [id number] - Allergy/Home Medications Allergies/Adverse Reactions: Allergies Allergy/AdvReac Type Severity Reaction Status Date / Time Bee Venom Allergy Severe Hives Verified 05/10/17 17:45 Morphine Allergy Severe Hives Verified 05/10/17 17:45 Mushroom Extract Complex Allergy Severe Hives Verified 05/10/17 17:45 Sulfa Antibiotics Allergy Intermediate Rash Verified 05/10/17 17:45 PMH/Surg Hx/FS Hx/Imm Hx Previously Healthy: No Endocrine/Hematology History: Reports: Hx Anemia - IV iron tx Denies: Hx Anticoagulant Therapy, Hx Diabetes, Hx Thyroid Disease Cardiovascular History: Denies: Hx Congestive Heart Failure, Hx Hypertension, Hx Pacemaker/ICD Comment Only: Other Cardiovascular Problems/Disorders - Arteriovenous malformation - Sx repair in 2008. Right atrial enlargement. 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 RT TEMPORAL LOBE IN 2008 [place] (removed scar tissue). 5 CSECTIONS Hx Anesthesia Reactions: No - Immunization History Date of Tetanus Vaccine: None Date of Influenza Vaccine: None Infectious Disease History: No Infectious Disease History: Denies: Hx Hepatitis, Hx Human Immunodeficiency Virus (HIV), Traveled Outside the [place] in Last 30 Days - Family History Known Family History: Positive: Cardiac Disease, Hypertension, Other - cancer Negative: Diabetes - Social History Occupation: Unemployed Lives: With Family Alcohol Use: None Hx Substance Use: Yes Substance Use Comment - Amount & Last Used: Ativan Hx Tobacco Use: Yes Smoking Status (MU): Former Smoker Have You Smoked in the Last Year: Yes - had of close relative on 2016 so smoked to cope Review of Systems Negative: Fever Positive: Dental Pain - L lower tooth infection Positive: Other - pos: neck and back pain All Other Systems Reviewed And Are Negative: Yes Physical Exam Triage Information Reviewed: Yes Vital Signs On Initial Exam: Initial Vitals Temp Pulse Resp BP Pulse Ox 98 F 76 14 116/71 99 05/20/17 22:45 05/20/17 22:45 05/20/17 22:45 05/20/17 22:45 05/20/17 22:45 Vital Signs Reviewed: Yes Appearance: Positive: No Pain Distress, Thin Skin: Positive: Warm Head/Face: Positive: Normal Head/Face Inspection Eyes: Positive: EOMI, CLAY ENT: Positive: Hearing grossly normal Neck: Positive: Supple Respiratory/Lung Sounds: Positive: Clear to Auscultation, Breath Sounds Present Cardiovascular: Positive: RRR Abdomen Description: Positive: Nontender, Soft Bowel Sounds: Positive: Present Musculoskeletal: Positive: Strength/ROM Intact Neurological: Positive: Alert, Oriented to Person Place, Time, Normal Gait Diagnostics - Vital Signs Vital Signs Temp Pulse Resp BP Pulse Ox 05/20/17 22:45 98 F 76 14 116/71 99 - Laboratory Result Diagrams: 05/20/17 23:30 05/20/17 23:30 Lab Statement: Any lab studies that have been ordered have been reviewed, and results considered in the medical decision making process. - CT BRAIN CT CT Interpretation: No Acute Changes - IMPRESSION: Encephalomalacia on the right as above unchanged. No acute traumatic injury identified. CT Interpretation Completed By: Radiologist C-SPINE CT Interpretation: No Acute Changes - IMPRESSION: No fracture or lithesis seen. CT Interpretation Completed By: Radiologist Re-Evaluation - Re-Evaluation First Eval Change: Improved - no further szs, results d/w pt, pt to see neuro this week Course/Dx - Course Course Of Treatment: Pt is a 36 y/o F with PMHx of sz BIBA present after 2 sz [employer]. Per EMS: pt had a sz while in the shower, family found her lying the bath tub; pt has neck and back pain, rated as a 10/10; pt is unsure if she hit her head. Pt sees Dr. Coles neuro, scheduled to see her tomorrow. Prior to today, pt's last sz was last week. Pt notes having a L lower tooth infection, scheduled to see a dentist in two days. Took Ibuprofen and Tylenol earlier today for the tooth pain. Pt's carbamazepine result is 2.0. Labs results WNL except low RBC, Hgb, Hct, and MPV. Brain CT and C-Spine CT have no acute findings. - Diagnoses Provider Diagnoses: Seizure Discharge - Discharge Plan Condition: Stable Disposition: HOME Patient Education Materials: Recurrent Seizures in Adults (ED) Referrals: Leatha Coles MD [Primary Care Provider] - Additional Instructions: Follow up with Dr. Coles as scheduled. The documentation as recorded by the Shanelle weller SooYoung accurately reflects the service I personally performed and the decisions made by , Nadeem Mann MD.
[2017-05-20 23:41] LABS: Hematocrit 34 % (35-47); Hemoglobin 11.6 g/dl (12.0-16.0); Mean Corpuscular HGB Conc 34 g/dl (31-36); Mean Corpuscular Hemoglobin 29 pg (27-31); Mean Corpuscular Volume 86 fL (80-97); Mean Platelet Volume 7 um3 (7.4-10.4); Red Blood Count 3.95 10^6/ul (4.0-5.4); Red Cell Distribution Width 14 % (10.5-15); White Blood Count 7.4 10^3/ul (3.5-10.8)
[2017-05-20] MEDS ORDERED: Ondansetron INJ* 2 MG/ML VIAL IV ONE (23:55)
[2017-05-20 23:57] LABS: Albumin 4.3 g/dL (3.2-5.2); Calcium 9.3 mg/dL (8.6-10.3); EGFR African American 152.1 (>60); EGFR Non-African American 118.3 (>60); Globulin 2.2 g/dL (2-4); Magnesium 2.2 mg/dL (1.9-2.7); Potassium 3.6 mmol/L (3.5-5.0); Total Bilirubin 0.2 mg/dL (0.2-1.0); Total Protein 6.5 g/dL (6.4-8.9)
[2017-05-21 01:06] VITALS: BP 107/65
--- NOTE | 2017-05-21 07:42 | RAD ---
HISTORY: Trauma, neck pain COMPARISONS: May 12, 2013 TECHNIQUE: Multiple contiguous axial CT scans were obtained of the cervical spine without intravenous contrast, with coronal and sagittal multiplanar reformations. FINDINGS: BRAIN: There is right temporal encephalomalacia, incompletely visualized on the current examination CENTRAL CANAL: Evaluation of the central canal is limited on CT technique, however there is no obvious canalicular mass or epidural hemorrhage. ALIGNMENT: There is straightening of the normal cervical lordosis. VERTEBRAL BODIES: The odontoid process is intact. The atlantoaxial intervals are symmetric. The vertebral bodies are normal in attenuation, without fracture. JOINTS: There is no subluxation or dislocation MUSCULATURE: Normal INTERVERTEBRAL DISCS: There is mild diffuse loss of intervertebral disc height. AXIAL IMAGES: On axial images, there is no osseous neural foraminal narrowing or central canal stenosis. SOFT TISSUES: The visualized soft tissues of the neck are unremarkable. The prevertebral fat stripe is preserved. OTHER: None. IMPRESSION: NO ACUTE OSSEOUS INJURY TO THE CERVICAL SPINE
--- NOTE | 2017-05-21 07:44 | RAD ---
HISTORY: Trauma, seizure, history of AVM repair COMPARISONS: MRI dated March 28, 2017 TECHNIQUE: Multiple contiguous axial CT scans were obtained of the head without intravenous contrast. FINDINGS: HEMORRHAGE/INFARCT: There is no hemorrhage or acute infarct. MASSES/SHIFT: There is no mass or shift. EXTRA-AXIAL SPACES: There are no extra-axial fluid collections. SULCI AND VENTRICLES: The sulci and ventricles are normal in size and position for the patient's stated age. CEREBRUM: There is a surgical resection cavity of the right temporal lobe extending into the inferior parietal lobe. Accounting for differences in technique, this is stable from the previous MRI examination. BRAINSTEM: There are no focal parenchymal abnormalities. CEREBELLUM: There are no focal parenchymal abnormalities. VESSELS: The vessels are grossly normal. PARANASAL SINUSES: The paranasal sinuses are clear. ORBITS: The orbits are unremarkable. 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 NO ACUTE INTRACRANIAL PATHOLOGY
== END 2017-05-21 01:06 | disposition home or self-care (01) ==
LOC: ED 22:40
DX: R56.9 Unspecified convulsions (principal); M54.2 Cervicalgia; M43.6 Torticollis; G93.89 Other specified disorders of brain; R00.1 Bradycardia, unspecified; K04.7 Periapical abscess without sinus; F32.9 Major depressive disorder, single episode, unspecified; Z88.5 Allergy status to narcotic agent; Z88.2 Allergy status to sulfonamides; Z91.030 Bee allergy status; Z87.891 Personal history of nicotine dependence
CPT/HCPCS: 36415; 70450; 72125; 80053; 80156; 80177; 83605; 83735; 85025; 85610; 93005; 99283

== ENCOUNTER 2017-05-27 17:33 | Emergency (ER) | payer OTHER ==
[2017-05-27 18:32] LABS: Hematocrit 34 % (35-47); Hemoglobin 11.1 g/dl (12.0-16.0); Mean Corpuscular HGB Conc 33 g/dl (31-36); Mean Corpuscular Hemoglobin 29 pg (27-31); Mean Corpuscular Volume 87 fL (80-97); Mean Platelet Volume 8 um3 (7.4-10.4); Red Blood Count 3.87 10^6/ul (4.0-5.4); Red Cell Distribution Width 15 % (10.5-15); White Blood Count 5.6 10^3/ul (3.5-10.8)
[2017-05-27 18:38] VITALS: BP 110/66
[2017-05-27 18:50] LABS: Albumin 4.1 g/dL (3.2-5.2); BUN/Creatinine Ratio 19.2 (8-20); Calcium 9.2 mg/dL (8.6-10.3); EGFR African American 172.6 (>60); EGFR Non-African American 134.2 (>60); Globulin 2.1 g/dL (2-4); Potassium 3.8 mmol/L (3.5-5.0); Total Bilirubin 0.2 mg/dL (0.2-1.0); Total Protein 6.2 g/dL (6.4-8.9)
--- NOTE | 2017-05-27 19:29 | ED ---
Seizure - HPI Summary HPI Summary: Patient presents to ED BIBA s/p seizure activity x 2. She states first occurred at 4am and the second one at 5pm. She endorses aura with seizure. States she is unable to walk on her left leg - this is at baseline. Takes her medication daily. Dr. Coles is currently in the process of changing her medications. She denies any new or worsening sxs compared to her baseline seizures. One seizure unwitnessed but she denies hitting her head. Mother witnessed second seizure but could not explain the signs to EMS. - History Of Current Complaint Chief Complaint: EDSeizure Time Seen by Provider: 05/27/17 17:51 Hx Obtained From: Patient Onset/Duration: Sudden Onset Severity Of Seizure: Self-Limited Location Of Seizure: All Extremities Character: Other - unable to determine Aggravating Factor(s): Nothing Alleviating Factor(s): Nothing Associated Signs And Symptoms: Negative - Risk Factors SAH Risk Factors: Negative Meningitis Risk Factors: Negative SDH Risk Factor: Negative - Allergies/Home Medications Allergies/Adverse Reactions: Allergies Allergy/AdvReac Type Severity Reaction Status Date / Time Bee Venom Allergy Severe Hives Verified 05/27/17 17:42 Morphine Allergy Severe Hives Verified 05/27/17 17:42 Mushroom Extract Complex Allergy Severe Hives Verified 05/27/17 17:42 Sulfa Antibiotics Allergy Intermediate Rash Verified 05/27/17 17:42 PMH/Surg Hx/FS Hx/Imm Hx Previously Healthy: No - seizures/ pseudoseizures Endocrine/Hematology History: Reports: Hx Anemia - IV iron tx Denies: Hx Anticoagulant Therapy, Hx Diabetes, Hx Thyroid Disease Cardiovascular History: Denies: Hx Congestive Heart Failure, Hx Hypertension, Hx Pacemaker/ICD Comment Only: Other Cardiovascular Problems/Disorders - Arteriovenous malformation - Sx repair in 2008. Right atrial enlargement. 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 RT TEMPORAL LOBE IN 2008 [place] (removed scar tissue). 5 CSECTIONS Hx Anesthesia Reactions: No - Immunization History Date of Tetanus Vaccine: None Date of Influenza Vaccine: None Infectious Disease History: No Infectious Disease History: Denies: Hx Hepatitis, Hx Human Immunodeficiency Virus (HIV), Traveled Outside the [place] in Last 30 Days - Family History Known Family History: Positive: Cardiac Disease, Hypertension, Other - cancer Negative: Diabetes - Social History Occupation: Unemployed, Disabled Lives: With Family Alcohol Use: None Hx Substance Use: Yes Substance Use Type: Reports: Prescribed Substance Use Comment - Amount & Last Used: Ativan Hx Tobacco Use: Yes Smoking Status (MU): Former Smoker Have You Smoked in the Last Year: Yes - had of close relative on 2016 so smoked to cope Review of Systems Constitutional: Negative Positive: Other - aura ENT: Negative Cardiovascular: Negative Gastrointestinal: Negative Genitourinary: Negative Positive: no symptoms reported, see HPI Musculoskeletal: Negative Skin: Negative Psychological: Normal All Other Systems Reviewed And Are Negative: Yes Physical Exam Triage Information Reviewed: Yes Vital Signs On Initial Exam: Initial Vitals Temp Pulse Resp BP Pulse Ox 98.6 F 80 16 132/63 100 05/27/17 17:40 05/27/17 17:40 05/27/17 17:40 05/27/17 17:40 05/27/17 17:40 Vital Signs Reviewed: Yes Appearance: Positive: Well-Appearing, No Pain Distress, Well-Nourished Skin: Positive: Warm, Skin Color Reflects Adequate Perfusion Head/Face: Positive: Normal Head/Face Inspection Eyes: Positive: EOMI, CLAY Neck: Positive: Supple, No Lymphadenopathy Respiratory/Lung Sounds: Positive: Clear to Auscultation, Breath Sounds Present Cardiovascular: Positive: Normal, RRR, Pulses are Symmetrical in both Upper and Lower Extremities Musculoskeletal: Positive: Normal, Strength/ROM Intact Neurological: Positive: Alert, Oriented to Person Place, Time, Speech Normal Psychiatric: Positive: Normal - Wolfgang Coma Scale Coma Scale Total: 15 Diagnostics - Vital Signs Vital Signs Temp Pulse Resp BP Pulse Ox 05/27/17 19:00 72 99 05/27/17 18:30 68 110/66 99 05/27/17 18:21 99 05/27/17 18:00 77 112/72 96 05/27/17 17:46 72 92 05/27/17 17:40 98.6 F 80 16 132/63 100 - Laboratory Lab Results: Lab Results 05/27/17 05/27/17 Range/Units 18:15 18:15 WBC 5.6 (3.5-10.8) 10^3/ul RBC 3.87 L (4.0-5.4) 10^6/ul Hgb 11.1 L (12.0-16.0) g/dl Hct 34 L (35-47) % MCV 87 (80-97) fL MCH 29 (27-31) pg MCHC 33 (31-36) g/dl RDW 15 (10.5-15) % Plt Count 284 (150-450) 10^3/ul MPV 8 (7.4-10.4) um3 Neut % (Auto) 49.1 (38-83) % Lymph % (Auto) 35.5 (25-47) % Caroline % (Auto) 10.1 H (1-9) % Eos % (Auto) 4.4 (0-6) % Baso % (Auto) 0.9 (0-2) % Absolute Neuts (auto) 2.7 (1.5-7.7) 10^3/ul Absolute Lymphs (auto) 2.0 (1.0-4.8) 10^3/ul Absolute Monos (auto) 0.6 (0-0.8) 10^3/ul Absolute Eos (auto) 0.2 (0-0.6) 10^3/ul Absolute Basos (auto) 0 (0-0.2) 10^3/ul Absolute Nucleated RBC 0 10^3/ul Nucleated RBC % 0 Sodium 137 (133-145) mmol/L Potassium 3.8 (3.5-5.0) mmol/L Chloride 107 (101-111) mmol/L Carbon Dioxide 25 (22-32) mmol/L Anion Gap 5 (2-11) mmol/L BUN 10 (6-24) mg/dL Creatinine 0.52 (0.51-0.95) mg/dL Est GFR ( Amer) 172.6 (>60) Est GFR (Non-Af Amer) 134.2 (>60) BUN/Creatinine Ratio 19.2 (8-20) Glucose 93 (70-100) mg/dL Calcium 9.2 (8.6-10.3) mg/dL Magnesium 2.0 (1.9-2.7) mg/dL Total Bilirubin 0.20 (0.2-1.0) mg/dL AST 24 (13-39) U/L ALT 21 (7-52) U/L Alkaline Phosphatase 45 (34-104) U/L Total Protein 6.2 L (6.4-8.9) g/dL Albumin 4.1 (3.2-5.2) g/dL Globulin 2.1 (2-4) g/dL Albumin/Globulin Ratio 2.0 (1-3) Result Diagrams: 05/27/17 18:15 05/27/17 18:15 Lab Statement: Any lab studies that have been ordered have been reviewed, and results considered in the medical decision making process. Course/Dx - Course Course Of Treatment: Labs WNL. Patient to follow up with Dr. Coles. Spoke with Dr. Dean about patient history. She is OK to go home and will return if symptoms become worse. - Diagnoses Differential Diagnosis/HQI/PQRI: Positive: Known Seizure Disorder, Other - pseudoseizure Provider Diagnoses: Seizure-like activity Discharge - Discharge Plan Condition: Stable Disposition: HOME Referrals: Leatha Coles MD [Primary Care Provider] - Additional Instructions: Return to ED if symptoms persist or worsen. Follow up with DR. Coles as needed
== END 2017-05-27 19:20 | disposition home or self-care (01) ==
LOC: ED 17:33
DX: R56.9 Unspecified convulsions (principal); Z87.891 Personal history of nicotine dependence
CPT/HCPCS: 36415; 80053; 83735; 85025; 99282

== ENCOUNTER → 2017-05-31 15:48 | Emergency (ER) | payer OTHER ==
[2017-05-31 17:55] VITALS: BP 105/80
--- NOTE | 2017-06-04 10:19 | ED ---
Rahel Bolton Thomas, scribed for Dylon Daen MD on 05/31/17 at 1623 . Syncope/Near Syncope - HPI Summary HPI Summary: The pt is a 36 y/o F BIBA c/o a seizure yesterday witnessed by her mother. Her mother reports that she was shaking like in the exorcist. She did not bite her tongue. Pt additionally c/o abd pain (perimbilical with radiation to her R side), R-sided BHATIA (with pain unlike that of her migraines), dental pain, L arm pain (on fire), L-sided weakness. The pt takes 9 meds, including Keppra and Clonazepam. Pt reports that she has been taking medications as directed without missing any doses. Her PCP is Dr. Coles, who the pt claims did not call her back after an appointment, prompting an ED visit. PMHx: migraines, headaches, seizures, depression. She is not on antibiotics right now. - History Of Current Complaint Chief Complaint: EDSeizure Time Seen by Provider: 05/31/17 16:02 Hx Obtained From: Patient, Family/Gi Physician Onset/Duration: Sudden Onset, Resolved Context: Witnessed - by mother Associated Head Trauma: No Aggravating Factor(s): Nothing Alleviating Factor(s): Nothing Associated Signs And Symptoms: Headache - R-sided, Weakness - to L side of body , Other - POS: L arm pain ("on fire"), abd pain (periumbilical with radiation to R side), dental pain - Allergies/Home Medications Allergies/Adverse Reactions: Allergies Allergy/AdvReac Type Severity Reaction Status Date / Time Bee Venom Allergy Severe Hives Verified 05/27/17 17:42 Morphine Allergy Severe Hives Verified 05/27/17 17:42 Mushroom Extract Complex Allergy Severe Hives Verified 05/27/17 17:42 Sulfa Antibiotics Allergy Intermediate Rash Verified 05/27/17 17:42 PMH/Surg Hx/FS Hx/Imm Hx Previously Healthy: No Endocrine/Hematology History: Reports: Hx Anemia - IV iron tx Denies: Hx Anticoagulant Therapy, Hx Diabetes, Hx Thyroid Disease Cardiovascular History: Denies: Hx Congestive Heart Failure, Hx Hypertension, Hx Pacemaker/ICD Comment Only: Other Cardiovascular Problems/Disorders - Arteriovenous malformation - Sx repair in 2008. Right atrial enlargement. 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 RT TEMPORAL LOBE IN 2008 [place] (removed scar tissue). 5 CSECTIONS Hx Anesthesia Reactions: No - Immunization History Date of Tetanus Vaccine: None Date of Influenza Vaccine: None Infectious Disease History: Denies: Hx Hepatitis, Hx Human Immunodeficiency Virus (HIV), Traveled Outside the [place] in Last 30 Days - Family History Known Family History: Positive: Cardiac Disease, Hypertension, Other - cancer Negative: Diabetes - Social History Alcohol Use: None Hx Substance Use: Yes Substance Use Type: Reports: Prescribed Substance Use Comment - Amount & Last Used: Ativan Hx Tobacco Use: Yes Smoking Status (MU): Former Smoker Have You Smoked in the Last Year: Yes - had of close relative on 2016 so smoked to cope Review of Systems Constitutional: Negative Negative: Fever, Chills Eyes: Negative Negative: Erythema - eyes Positive: Dental Pain Cardiovascular: Negative Negative: Chest Pain Respiratory: Negative Negative: Shortness Of Breath Positive: Abdominal Pain - periumbilical with radiation to R side. Negative: Vomiting, Nausea Genitourinary: Negative Negative: dysuria, hematuria Musculoskeletal: Other - POS: L arm pain Negative: Edema - leg Skin: Negative Negative: Rash Neurological: Other - POS: witnessed seizure yesterday, L-sided weakness; NEG: dizziness Positive: Headache - R-sided, with pain unlike that of her migraines Psychological: Normal All Other Systems Reviewed And Are Negative: Yes Physical Exam - Summary Physical Exam Summary: Constitutional: Well-developed, Well-nourished, Alert. (-) Distressed Skin: Warm, Dry HENT: Eyes: Poor dentition. Conjunctiva normal Neck: Musculoskeletal ROM normal neck. (-) JVD, (-) Stridor, (-) Tracheal deviation Cardio: Rhythm regular, rate normal, Heart sounds normal; Intact distal pulses; The pedal pulses are 2+ and symmetric. Radial pulses are 2+ and symmetric. (-) Murmur Pulmonary/Chest wall: Effort normal. (-) Respiratory distress, (-) Wheezes, (-) Rales Abd: Soft. (-) Tenderness, ~(-) Distension, (-) Guarding, (-) Rebound Musculoskeletal: (-) Edema Lymph: (-) Cervical adenopathy Neuro: Alert, Oriented x3, Strength normal, Cranial nerves II-XII are grossly intact. (-) Dysmetria, (-) Nystagmus, (-) Ataxia by finger to nose testing, (-) Sensory deficit. Psych: Mood and affect Normal Triage Information Reviewed: Yes Vital Signs On Initial Exam: Initial Vitals Temp Pulse Resp BP Pulse Ox 98.1 F 93 15 104/72 99 05/31/17 16:13 05/31/17 16:13 05/31/17 16:13 05/31/17 16:13 05/31/17 16:13 Vital Signs Reviewed: Yes Diagnostics - Vital Signs Vital Signs Temp Pulse Resp BP Pulse Ox 05/31/17 16:13 98.1 F 93 15 104/72 99 - Laboratory Lab Statement: Any lab studies that have been ordered have been reviewed, and results considered in the medical decision making process. Course/Dx Assessment/Plan: The pt is a 36 y/o F BIBA c/o a seizure yesterday witnessed by her mother. Her mother reports that she was shaking like in the exorcist. She did not bite her tongue. Pt additionally c/o abd pain (perimbilical with radiation to her R side), R-sided BHATIA (with pain unlike that of her migraines), dental pain, L arm pain (on fire), L-sided weakness. The pt takes 9 meds, including Keppra and Clonazepam. Pt reports that she has been taking medications as directed without missing any doses. Her PCP is Dr. Coles, who the pt claims did not call her back after an appointment, prompting an ED visit. PMHx: migraines, headaches, seizures, depression. She is not on antibiotics right now. PE Findings: NORMAL neuro exam. The pt was diagnosed with breakthrough seizure and discharged home. The pt was informed that she will need chemistries and chemical levels checked at an outpatient basis. She was told to return to the ED for new or worsening symptoms. This aura and seizures are typical for her. Numerous prior lab studies and CT have been negative. She has had pseudoseizures in the past. We believe that any further CT imaging or vena punctures could be detrimental to her health and have no diagnostic utility. Recommended close follow-up with Dr. Coles in 48 hours. Despite apparent L-sided paralysis during the examination, the pt was able to ambulate out of the ED. - Diagnoses Provider Diagnoses: Breakthrough seizure Discharge - Discharge Plan Condition: Stable Disposition: HOME Prescriptions: Penicillin VK TAB* [Penicillin VK 250 mg Tab*] 500 mg PO QID #28 tab Patient Education Materials: Nonepileptic Seizures (ED) Referrals: Leatha Coles MD [Primary Care Provider] - 2 Days Additional Instructions: RETURN TO THE EMERGENCY DEPARTMENT FOR CHANGING OR WORSENING SYMPTOMS. You will need your chemistries and chemical levels checked on an outpatient basis. The documentation as recorded by the Rahel weller Thomas accurately reflects the service I personally performed and the decisions made by , Dylon Dean MD.
== END | disposition home or self-care (01) ==
LOC: ED 15:48
DX: R56.9 Unspecified convulsions (principal); K08.89 Other specified disorders of teeth and supporting structures; R10.9 Unspecified abdominal pain; Z87.891 Personal history of nicotine dependence; R51 Headache
CPT/HCPCS: 99282

== ENCOUNTER 2017-06-20 17:09 | Emergency (ER) | payer OTHER ==
[2017-06-20 17:51] LABS: Hematocrit 33 % (35-47); Hemoglobin 11.2 g/dl (12.0-16.0); Mean Corpuscular HGB Conc 34 g/dl (31-36); Mean Corpuscular Hemoglobin 30 pg (27-31); Mean Corpuscular Volume 87 fL (80-97); Mean Platelet Volume 7 um3 (7.4-10.4); Red Cell Distribution Width 15 % (10.5-15); White Blood Count 5.8 10^3/ul (3.5-10.8)
[2017-06-20 18:08] LABS: Albumin 4.2 g/dL (3.2-5.2); BUN/Creatinine Ratio 14.6 (8-20); Calcium 8.6 mg/dL (8.6-10.3); EGFR African American 189.3 (>60); EGFR Non-African American 147.2 (>60); Potassium 3.5 mmol/L (3.5-5.0); Total Bilirubin 0.2 mg/dL (0.2-1.0); Total Protein 6.2 g/dL (6.4-8.9)
[2017-06-20] MEDS ORDERED: Ondansetron INJ* 2 MG/ML VIAL IV ONE (18:37)
[2017-06-20 18:59] LABS: Urine Bacteria Absent (Absent); Urine Bilirubin Negative (Negative); Urine Glucose Negative (Negative); Urine Nitrite Negative (Negative)
[2017-06-20 20:43] VITALS: BP 94/60
--- NOTE | 2017-06-23 14:37 | ED ---
Natalya Bolton Rebecca, scribed for Dylon Dean MD on 06/20/17 at 1741 . Neurological HPI - HPI Summary HPI Summary: Pt is a 52 y/o F BIBA who presents to ED s/p seizure. Pt reports she had 1 seizure at 0500 this morning which was alleviated by spontaneous resolution. Reports urine incontinence during the seizure and being post-ictal after the incident. 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 Additionally notes depression and intermittent SIs last week to which she responds that if she ever wanted ot harm herself she would call 911. Denies V/D. Confirms she has been sleeping at night. Pt reports she was prompted to come to [facility] ED by her parents. Recent medication change with Dr. Coles 2 weeks ago, altering the Onfi dose. - History of Current Complaint Chief Complaint: EDSeizure Stated Complaint: SEIZURE Time Seen by Provider: 06/20/17 17:30 Hx Obtained From: Patient Onset/Duration: Resolved Number of Seizures: 1 Pain Intensity: 0 Pain Scale Used: 0-10 Numeric Aggravating: Nothing Alleviating: Spontanious Resolution Associated Signs and Symptoms: Positive: Seizure - 1x PROFESSOR OF EDUCATION, Incontinent Bladder/ Bowel - Bladder - Additional Pertinent History Primary Care Physician: [id number] - Allergy/Home Medications Allergies/Adverse Reactions: Allergies Allergy/AdvReac Type Severity Reaction Status Date / Time Bee Venom Allergy Severe Hives Verified 05/27/17 17:42 Morphine Allergy Severe Hives Verified 05/27/17 17:42 Mushroom Extract Complex Allergy Severe Hives Verified 05/27/17 17:42 Sulfa Antibiotics Allergy Intermediate Rash Verified 05/27/17 17:42 PMH/Surg Hx/FS Hx/Imm Hx Endocrine/Hematology History: Reports: Hx Anemia - IV iron tx Denies: Hx Anticoagulant Therapy, Hx Diabetes, Hx Thyroid Disease Cardiovascular History: Denies: Hx Congestive Heart Failure, Hx Hypertension, Hx Pacemaker/ICD Comment Only: Other Cardiovascular Problems/Disorders - Arteriovenous malformation - Sx repair in 2008. Right atrial enlargement. 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 RT TEMPORAL LOBE IN 2008 [place] (removed scar tissue). 5 CSECTIONS Hx Anesthesia Reactions: No - Immunization History Date of Tetanus Vaccine: None Date of Influenza Vaccine: None Infectious Disease History: No Infectious Disease History: Denies: Hx Hepatitis, Hx Human Immunodeficiency Virus (HIV), Traveled Outside the US in Last 30 Days - Family History Known Family History: Positive: Cardiac Disease, Hypertension, Other - cancer Negative: Diabetes - Social History Alcohol Use: None Hx Substance Use: Yes Substance Use Type: Reports: None, Prescribed Substance Use Comment - Amount & Last Used: Ativan Hx Tobacco Use: Yes Smoking Status (MU): Never Smoked Tobacco Have You Smoked in the Last Year: Yes - had of close relative on 2016 so smoked to cope Review of Systems Negative: Fever, Chills Negative: Erythema Negative: Sore Throat Negative: Chest Pain Negative: Shortness Of Breath, Cough Negative: Abdominal Pain, Vomiting, Diarrhea, Nausea Positive: incontinence - Bladder 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 (-) Distressed Skin: Warm, Dry HENT: Eyes: Conjunctiva normal Neck: Musculoskeletal ROM normal neck. (-) JVD, (-) Stridor, (-) Tracheal deviation Cardio: Rhythm regular, rate normal, Heart sounds normal; Intact distal pulses; The pedal pulses are 2+ and symmetric. Radial pulses are 2+ and symmetric. (-) Murmur Pulmonary/Chest wall: Effort normal. (-) Respiratory distress, (-) Wheezes, (-) Rales Abd: Soft. (-) Tenderness, ~(-) Distension, (-) Guarding, (-) Rebound Musculoskeletal: (-) Edema Lymph: (-) Cervical adenopathy Neuro: Alert, Oriented x3, Strength normal, Cranial nerves II-XII are grossly intact. (-) Dysmetria, (-) Nystagmus, (-) Ataxia by finger to nose testing, (-) Sensory deficit. Psych: Mood and affect Normal Triage Information Reviewed: Yes Vital Signs On Initial Exam: Initial Vitals Temp Pulse Resp BP Pulse Ox 98.2 F 100 18 116/80 100 06/20/17 17:23 06/20/17 17:23 06/20/17 17:23 06/20/17 17:23 06/20/17 17:23 Vital Signs Reviewed: Yes - Ethel Coma Scale Coma Scale Total: 15 Diagnostics - Vital Signs Vital Signs Temp Pulse Resp BP Pulse Ox 06/20/17 17:23 98.2 F 100 18 116/80 100 - Laboratory Result Diagrams: 06/20/17 17:42 06/20/17 17:42 Lab Statement: Any lab studies that have been ordered have been reviewed, and results considered in the medical decision making process. Re-Evaluation - Re-Evaluation First Eval Re-Evaluation Time: 18:54 Change: Unchanged Comment: Pt confirmed that she is medicaiton compliant, despite her levels being low. She has not seized here. Discussed D/C plan. Course/Dx - Course Course Of Treatment: Pt is a 52 y/o F BIBA who presents to ED s/p seizure at 0500 this morning. Reports urine incontinence during the seizure and being post- ictal after the incident. 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 Additionally notes depression and intermittent SIs last week. Denies V/D. Confirms she has been sleeping at night. Pt reports she was prompted to come to [facility] ED by her parents. Recent medication change with Dr. Coles 2 weeks ago, altering the Onfi dose. RBC of 3.8, Carmabazepine of 2.0. In the ED course, pt was administered Zofran. Discussed care of pt with the pharmacist who confirmed that the pt did fill her trileptol at the pharmacy about 4 days ago, The pt says that she is taking it, but depiste this every time we check her levels they are essentially negative. High suspicioin for medication noncompliance. She has not seized while in the ED and had a normal exam. She will be D/C to home with Dx of seizure disorder, post-ictal state and breakthrough seizure with an Rx for spiriva and a follow up with Dr. Coles. She understands and agrees. Patient medications reviewed this visit. - Diagnoses Provider Diagnoses: Seizure disorder, Post-ictal state, Breakthrough seizure - Physician Notifications Discussed Care Of Patient With: Pharmacy Time Discussed With Above Provider: 18:59 Instructed by Provider To: Other - Talked to pharmacist. The mariusz did fill her Trileptal at the pharmacy about 4 days ago. Discharge - Discharge Plan Condition: Stable Disposition: HOME Prescriptions: Tiotropium CAP.INH* [Spiriva CAP.INH*] 1 cap.inh INH DAILY #1 cap.inh Referrals: Leatha Coles MD [Primary Care Provider] - (Follow up in 2-3 days. ) Additional Instructions: RETURN TO EMERGENCY DEPARTMENT FOR ANY RETURNING OR WORSENING SYMPTOMS. The documentation as recorded by the Natalya weller Rebecca accurately reflects the service I personally performed and the decisions made by me, Dylon Dean MD.
== END 2017-06-20 20:46 | disposition home or self-care (01) ==
LOC: ED 17:09
DX: G40.909 Epilepsy, unspecified, not intractable, without status epilepticus (principal); R32 Unspecified urinary incontinence; F32.9 Major depressive disorder, single episode, unspecified; Z88.5 Allergy status to narcotic agent; Z88.2 Allergy status to sulfonamides; Z91.030 Bee allergy status
CPT/HCPCS: 36415; 80053; 80156; 80177; 81003; 81015; 83605; 83735; 85025; 85610; 87086; 96374; 99282; J2405

== ENCOUNTER 2017-06-24 14:48 | Emergency (ER) | payer OTHER ==
[2017-06-24] MEDS ORDERED: Ondansetron ODT TAB* 4 MG PO ONE (15:27)
[2017-06-24 15:28] VITALS: BP 103/79
[2017-06-24] MEDS ORDERED: LORazepam INJ* 2 MG/ML 1 ML VIAL IV PUSH ONE (15:34)
[2017-06-24] MEDS ORDERED: LORazepam INJ* 2 MG/ML 1 ML VIAL ONE (15:36)
--- NOTE | 2017-06-24 15:42 | UC ---
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 SHE GETS THESE BEFORE SHE SEIZES. LEFT SIDE FEELS LIKE IT IS BURNING. LEFT EYE VISION IS BLACK. RIGHT EYE IS SEEING BLUE. HAS NAUSEA. SHE MISSED HER MORNING DOSE OF KEP[place]A YESTERDAY AND HAD A BREAKTHROUGH SZ LAST NIGHT. TOOK HER MEDS TODAY. AURA STARTED SO SHE CAME DIRECTLY HERE. HAS APPT WITH HER NEUROLOGIST DR. COLES TOMORROW FOR MED ADJUSTMENT SHE WAS IN THE ER WITH BREAKTHROUGH SZ JUST A FEW DAYS AGO ON 06/20/17. STATES SHE HAS BEEN HYDRATING AND SLEEPING WELL. - History Of Current Complaint Chief Complaint: UCGeneralIllness Stated Complaint: PERSONAL Time Seen by Provider: 06/24/17 15:26 Hx Obtained From: Patient Onset/Duration: Sudden Onset, Lasting Hours, Still Present Associated Signs And Symptoms: Other - NAUSEA, VISUAL DISTURBANCE - Allergies/Home Medications Allergies/Adverse Reactions: Allergies Allergy/AdvReac Type Severity Reaction Status Date / Time Bee Venom Allergy Severe Hives Verified 06/24/17 15:12 Morphine Allergy Severe Hives Verified 06/24/17 15:12 Mushroom Extract Complex Allergy Severe Hives Verified 06/24/17 15:12 Sulfa Antibiotics Allergy Intermediate Rash Verified 06/24/17 15:12 Home Medications: Home Medications Ferrous Sulfate [Iron (Ferrous Sulfate)] 06/24/17 [History Confirmed 06/24/17] PMH/Surg Hx/FS Hx/Imm Hx Neurological History: Seizures - SECONDARY TO RUPTURED AVM Other History Of: Negative For: Anticoagulant Therapy - Surgical History Surgical History: Yes Surgery Procedure, Year, and Place: AVM REPAIR (CLIPPED, THEN CLIP WAS REMOVED - SEE REPORTS). RT TEMPORAL LOBE IN 2008 [place] (removed scar tissue). 5 CSECTIONS - Family History Known Family History: Positive: Cardiac Disease, Hypertension, Other - cancer Negative: Diabetes - Social History Alcohol Use: None Substance Use Type: Prescribed Substance Use Comment - Amount & Last Used: Ativan Smoking Status (MU): Former Smoker Have You Smoked in the Last Year: Yes - had of close relative on 2016 so smoked to cope Household Exposure Type: Cigarettes - Immunization History Most Recent Influenza Vaccination: 2015 Most Recent Tetanus Shot: 2014 Most Recent Pneumonia Vaccination: UNSURE Review of Systems Constitutional: Negative Skin: Negative Respiratory: Negative Cardiovascular: Negative Gastrointestinal: Nausea Neurological: Weakness, Paresthesia All Other Systems Reviewed And Are Negative: Yes Physical Exam Triage Information Reviewed: Yes Appearance: Well-Appearing, No Pain Distress, Well-Nourished Vital Signs: Initial Vital Signs Temp 98.4 F 06/24/17 15:08 Pulse 119 06/24/17 15:08 Resp 18 06/24/17 15:08 BP 97/66 06/24/17 15:08 Pulse Ox 99 06/24/17 15:08 Vital Signs Reviewed: Yes Eyes: Positive: Conjunctiva Clear ENT: Positive: Hearing grossly normal Neck: Positive: Supple Respiratory: Positive: No respiratory distress, No accessory muscle use Cardiovascular: Positive: Pulses Normal Abdomen Description: Positive: Soft Musculoskeletal: Positive: No Edema Neurological: Positive: Alert, Other: - LEFT SIDED WEAKNESS, UNABLE TO MOVE LEFT LEG OR ARM. CAN MOVE FINGERS SLIGHTLY. Psychological: Positive: Age Appropriate Behavior Skin: Negative: rashes Seizure Course/Dx - Course Course Of Treatment: 4MG ZOFRAN ODT GIVEN. 2 MG ATIVAN IV GIVEN. TO [facility] BY AMBULANCE - Differential Dx/Diagnosis Provider Diagnoses: AURA, KNOWN SEIZURE DISORDER - Physician Notification/Consults Discussed Patient Care With: ANAY ROSENBAUM NURSE - TO [facility] AMBULANCE Time Discussed With Above Provider: 15:45 Instructed by Provider To: MD Will See In ED Discharge - Discharge Plan Condition: Stable Disposition: TRANS HIGHER LVL OF CARE FAC Referrals: Leatha Coles MD [Primary Care Provider] -
[2017-06-24] MEDS ORDERED: NS 0.9% 1000 ML* 1,000 ML IV SCH (15:45)
== END 2017-06-24 15:57 | disposition short-term general hospital (02) ==
LOC: UCEAST 14:48
DX: G40.909 Epilepsy, unspecified, not intractable, without status epilepticus (principal); Z88.5 Allergy status to narcotic agent; Z88.2 Allergy status to sulfonamides; Z91.030 Bee allergy status; Z87.891 Personal history of nicotine dependence
CPT/HCPCS: 96360; 96374; 99213; A9270-GY; G0463; J2060

== ENCOUNTER 2017-06-24 16:04 | Emergency (ER) | payer OTHER ==
[2017-06-24 16:38] VITALS: BP 115/64
--- NOTE | 2017-06-24 18:47 | ED ---
Nico Bolton Alfonso, scribed for Gumaro Lee MD on 06/24/17 at 1622 . Complex/Multi-Sys Presentation - HPI Summary HPI Summary: This patient is a 36 year old F BIBA from [facility] to [facility] with a chief complaint of an aura since earlier today. She reports missing dose of 2000 mg Keppra yesterday morning. The patient rates the pain 0/10 in severity. Symptoms aggravated by nothing and alleviated by Ativan ARCHIVIST. The patient reports a seizure yesterday. She has an appointment with Dr. Coles (neurologist) tomorrow. PMHx of seizures. - History Of Current Complaint Chief Complaint: EDSeizure Time Seen by Provider: 06/24/17 16:10 Hx Obtained From: Patient Onset/Duration: Sudden Onset, Lasting Hours - Earlier today, Still Present Timing: Constant Severity Currently: Moderate Severity Initially: Moderate Aggravating Factor(s): Nothing. Alleviating Factor(s): Ativan ARCHIVIST Associated Signs And Symptoms: Positive: Other - Seizure yesterday. - Allergies/Home Medications Allergies/Adverse Reactions: Allergies Allergy/AdvReac Type Severity Reaction Status Date / Time Bee Venom Allergy Severe Hives Verified 06/24/17 15:12 Morphine Allergy Severe Hives Verified 06/24/17 15:12 Mushroom Extract Complex Allergy Severe Hives Verified 06/24/17 15:12 Sulfa Antibiotics Allergy Intermediate Rash Verified 06/24/17 15:12 PMH/Surg Hx/FS Hx/Imm Hx Endocrine/Hematology History: Reports: Hx Anemia - IV iron tx Denies: Hx Anticoagulant Therapy, Hx Diabetes, Hx Thyroid Disease Cardiovascular History: Denies: Hx Congestive Heart Failure, Hx Hypertension, Hx Pacemaker/ICD Comment Only: Other Cardiovascular Problems/Disorders - Arteriovenous malformation - Sx repair in 2008. Right atrial enlargement. 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 RT TEMPORAL LOBE IN 2008 [place] (removed scar tissue). 5 CSECTIONS Hx Anesthesia Reactions: No - Immunization History Date of Tetanus Vaccine: None Date of Influenza Vaccine: None Infectious Disease History: No Infectious Disease History: Denies: Hx Hepatitis, Hx Human Immunodeficiency Virus (HIV), Traveled Outside the [place] in Last 30 Days - Family History Known Family History: Positive: Cardiac Disease, Hypertension, Other - cancer Negative: Diabetes - Social History Alcohol Use: None Hx Substance Use: Yes Substance Use Type: Reports: Prescribed Substance Use Comment - Amount & Last Used: Ativan Hx Tobacco Use: Yes Smoking Status (MU): Former Smoker Have You Smoked in the Last Year: Yes - had of close relative on 2016 so smoked to cope Review of Systems Negative: Fever Neurological: Other - Positive aura since earlier today and seizure yesterday. All Other Systems Reviewed And Are Negative: Yes Physical Exam - Summary Physical Exam Summary: VITAL SIGNS: Reviewed. GENERAL: Patient is a well-developed and nourished female who is lying comfortable in the stretcher. Patient is not in any acute respiratory distress. HEAD AND FACE: No signs of trauma. No ecchymosis, hematomas or skull depressions. No sinus tenderness. EYES: PERRLA, EOMI x 2, No injected conjunctiva, no nystagmus. EARS: Hearing grossly intact. Ear canals and tympanic membranes are within normal limits. MOUTH: Oropharynx within normal limits. NECK: Supple, trachea is midline, no adenopathy, no JVD, no carotid bruit, no c- spine tenderness, neck with full ROM. CHEST: Symmetric, no tenderness at palpation LUNGS: Clear to auscultation bilaterally. No wheezing or crackles. CVS: Regular rate and rhythm, S1 and S2 present, no murmurs or gallops appreciated. ABDOMEN: Soft, non-tender. No signs of distention. No rebound no guarding, and no masses palpated. Bowel sounds are normal. EXTREMITIES: FROM in all major joints, no edema, no cyanosis or clubbing. NEURO: Alert and oriented x 3. No acute neurological deficits. Speech is normal and follows commands. SKIN: Dry and warm Triage Information Reviewed: Yes Vital Signs On Initial Exam: Initial Vitals Temp Pulse Resp BP Pulse Ox 98 F 77 16 111/78 99 06/24/17 16:09 06/24/17 16:09 06/24/17 16:09 06/24/17 16:09 06/24/17 16:09 Vital Signs Reviewed: Yes Diagnostics - Vital Signs Vital Signs Temp Pulse Resp BP Pulse Ox 06/24/17 16:14 77 100 06/24/17 16:09 98 F 77 16 111/78 99 - Laboratory Lab Statement: Any lab studies that have been ordered have been reviewed, and results considered in the medical decision making process. Complex Multi-Symp Course/Dx Course Of Treatment: This patient is a 36 year old F BIBA from [facility] to [facility] with a chief complaint of an aura since earlier today. She reports missing dose of 2000 mg Keppra yesterday morning. The patient rates the pain 0/10 in severity. Symptoms aggravated by nothing and alleviated by Ativan ARCHIVIST. The patient reports a seizure yesterday. She has an appointment with Dr. Coles ( neurologist) tomorrow. PMHx of seizures. Assessment/Plan: In the ED course the patient is A&Ox3. She has no post ictal symptoms. She was recently seen in the ED for the same reason on 06/20/17 where she had a full work up. I discussed the case with Dr. Solorio who recommends no additional testing. He recommends for the patient to be discharged home with follow up with Dr. Coles. I discussed the plan with the patient and she understands and agrees. Patient is hemodynamically stable and alert and oriented to person, place, and time. - Diagnoses Provider Diagnoses: Seizure - Physician Notifications Discussed Care Of Patient With: Nadeem Solorio Time Discussed With Above Provider: 16:22 Instructed by Provider To: Other - Consulted Dr. Solorio (neurologist) who recommends no labs need to be drawn at this time and discharge with neurology follow up. Discharge - Discharge Plan Condition: Stable Disposition: HOME Patient Education Materials: Recurrent Seizures in Adults (ED) Referrals: Leatha Coles MD [Primary Care Provider] - 1 Day The documentation as recorded by the Nico weller Alfonso accurately reflects the service I personally performed and the decisions made by , Gumaro Lee MD.
== END 2017-06-24 16:38 | disposition home or self-care (01) ==
LOC: ED 16:04
DX: R56.9 Unspecified convulsions (principal); Z87.891 Personal history of nicotine dependence
CPT/HCPCS: 99282

== ENCOUNTER 2017-06-26 20:27 | Emergency (ER) | payer OTHER ==
[2017-06-26] MEDS ORDERED: Ondansetron INJ* 2 MG/ML VIAL IV ONE (22:02)
[2017-06-26 22:03] LABS: Hematocrit 32 % (35-47); Hemoglobin 10.7 g/dl (12.0-16.0); Mean Corpuscular HGB Conc 33 g/dl (31-36); Mean Corpuscular Hemoglobin 29 pg (27-31); Mean Corpuscular Volume 87 fL (80-97); Mean Platelet Volume 7 um3 (7.4-10.4); Red Cell Distribution Width 15 % (10.5-15); White Blood Count 6.6 10^3/ul (3.5-10.8)
[2017-06-26 22:20] LABS: BUN/Creatinine Ratio 20.4 (8-20); Calcium 8.8 mg/dL (8.6-10.3); EGFR African American 184.8 (>60); EGFR Non-African American 143.7 (>60); Total Bilirubin 0.2 mg/dL (0.2-1.0)
[2017-06-26 22:23] LABS: Potassium 4.1 mmol/L (3.5-5.0)
--- NOTE | 2017-06-26 22:39 | ED ---
Shanelle Bolton SooYoung, scribed for Nadeem Mann MD on 06/26/17 at 2114 . Neurological HPI - HPI Summary HPI Summary: A 36 y/o F with PMHx: sz presents to ED after sz (1x) onset 214. She states she felt like she was going to have a sz, and went to get her mother, but before she reached her, she seized. She states haing strong auras today. Associated sx: metallic taste in mouth, copper smell, R ear pain, vision changes , L-sided weakness/numbness. She says it feels like "lava is running through her veins." She did take her sz medications today. Saw her neurologist yesterday , changing medication. - History of Current Complaint Chief Complaint: EDSeizure Stated Complaint: SEIZURES Time Seen by Provider: 06/26/17 21:06 Hx Obtained From: Patient Onset/Duration: Sudden Onset, Still Present - auras present and other sx, Resolved - sz Timing: Constant Current Severity: Moderate Seizure Severity: Moderate Number of Seizures: 1 - at 0215 Pain Intensity: 0 Pain Scale Used: 0-10 Numeric Frequency: Episodes x___ - 1 Aggravating: Medication Change Associated Signs and Symptoms: Positive: Visual Changes, Weakness - L-sided, Seizure, Numbness - L-sided - Additional Pertinent History Primary Care Physician: [id number] - Allergy/Home Medications Allergies/Adverse Reactions: Allergies Allergy/AdvReac Type Severity Reaction Status Date / Time Bee Venom Allergy Severe Hives Verified 06/24/17 15:12 Morphine Allergy Severe Hives Verified 06/24/17 15:12 Mushroom Extract Complex Allergy Severe Hives Verified 06/24/17 15:12 Sulfa Antibiotics Allergy Intermediate Rash Verified 06/24/17 15:12 PMH/Surg Hx/FS Hx/Imm Hx Previously Healthy: No Endocrine/Hematology History: Reports: Hx Anemia - IV iron tx Denies: Hx Anticoagulant Therapy, Hx Diabetes, Hx Thyroid Disease Cardiovascular History: Denies: Hx Congestive Heart Failure, Hx Hypertension, Hx Pacemaker/ICD Comment Only: Other Cardiovascular Problems/Disorders - Arteriovenous malformation - Sx repair in 2008. Right atrial enlargement. 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 RT TEMPORAL LOBE IN 2008 [place] (removed scar tissue). 5 CSECTIONS Hx Anesthesia Reactions: No - Immunization History Date of Tetanus Vaccine: None Date of Influenza Vaccine: None Infectious Disease History: No Infectious Disease History: Denies: Hx Hepatitis, Hx Human Immunodeficiency Virus (HIV), Traveled Outside the US in Last 30 Days - Family History Known Family History: Positive: Cardiac Disease, Hypertension, Other - cancer Negative: Diabetes - Social History Occupation: Unemployed Lives: With Family Alcohol Use: None Hx Substance Use: Yes Substance Use Type: Reports: Prescribed Substance Use Comment - Amount & Last Used: Ativan Hx Tobacco Use: Yes Smoking Status (MU): Former Smoker Have You Smoked in the Last Year: Yes - had of close relative on 2016 so smoked to cope Review of Systems Negative: Fever Positive: Other - pos: vision changes ENT: Other - pos: metallic taste in mouth, copper smell Neurological: Other - pos: sz Positive: Weakness - L-sided, Numbness - L-sided All Other Systems Reviewed And Are Negative: Yes Physical Exam Triage Information Reviewed: Yes Vital Signs On Initial Exam: Initial Vitals Temp 98.1 F 06/26/17 20:28 Vital Signs Reviewed: Yes Appearance: Positive: No Pain Distress, Thin Skin: Positive: Warm Head/Face: Positive: Normal Head/Face Inspection Eyes: Positive: CLAY ENT: Positive: Hearing grossly normal Neck: Positive: Supple Respiratory/Lung Sounds: Positive: Breath Sounds Present Cardiovascular: Positive: RRR Abdomen Description: Positive: Nontender, Soft Musculoskeletal: Positive: Strength/ROM Intact Neurological: Positive: Sensory/Motor Intact, Alert, Oriented to Person Place, Time, Normal Gait Psychiatric: Positive: Affect/Mood Appropriate Diagnostics - Vital Signs Vital Signs Temp Pulse Resp BP Pulse Ox 06/26/17 20:35 98.1 F 73 16 108/68 98 06/26/17 20:28 98.1 F - Laboratory Result Diagrams: 06/26/17 21:50 06/26/17 21:50 Lab Statement: Any lab studies that have been ordered have been reviewed, and results considered in the medical decision making process. Re-Evaluation - Re-Evaluation 1 Re-Evaluation Time: 23:23 Change: Improved Comment: Discussing results and dispo plan with pt. Pt voiced understanding. Course/Dx - Course Course Of Treatment: Pt is a 36 y/o F with PMHx: sz presenting after sz (1x) onset 214. She states haing strong auras today. Associated sx: metallic taste in mouth, copper smell, R ear pain, vision changes, L-sided weakness/numbness. She did take her sz medications today. Saw her neurologist yesterday, changing medication. Pt given Zofran in ED. Blood and lab work results are without significant abnormalities. Will D/C home to f/u with neuro. - Diagnoses Provider Diagnoses: Seizures Discharge - Discharge Plan Condition: Stable Disposition: HOME Patient Education Materials: Recurrent Seizures in Adults (ED) Referrals: Madhavi Mayorga MD [Primary Care Provider] - Additional Instructions: Follow up with your neurologist in the next few days. Return to ED for recurrent seizure. The documentation as recorded by the Shanelle weller SooYoung accurately reflects the service I personally performed and the decisions made by me, Nadeem Mann MD.
[2017-06-26 23:39] VITALS: BP 100/56
== END 2017-06-26 23:39 | disposition home or self-care (01) ==
LOC: ED 20:27
DX: R56.9 Unspecified convulsions (principal); R53.1 Weakness
CPT/HCPCS: 36415; 80053; 83605; 83735; 85025; 85610; 96374; 99284; J2405

== ENCOUNTER 2017-07-16 19:42 | Emergency (ER) | payer OTHER ==
[2017-07-16] MEDS ORDERED: NS 0.9% 1000 ML* 1,000 ML IV ONE (20:50)
[2017-07-16] MEDS ORDERED: Ondansetron INJ* 2 MG/ML VIAL IV ONE (20:50)
[2017-07-16] MEDS ORDERED: LORazepam INJ* 2 MG/ML 1 ML VIAL IV ONE (20:50)
[2017-07-16 21:25] LABS: Hematocrit 32 % (35-47); Hemoglobin 10.9 g/dl (12.0-16.0); Mean Corpuscular HGB Conc 34 g/dl (31-36); Mean Corpuscular Hemoglobin 30 pg (27-31); Mean Corpuscular Volume 87 fL (80-97); Mean Platelet Volume 6 um3 (7.4-10.4); Red Blood Count 3.66 10^6/ul (4.0-5.4); Red Cell Distribution Width 16 % (10.5-15); White Blood Count 5.6 10^3/ul (3.5-10.8)
[2017-07-16 21:42] LABS: ALT 14 U/L (7-52); AST 16 U/L (13-39); Alkaline Phosphatase 36 U/L (34-104); Anion Gap 3 mmol/L (2-11); BUN/Creatinine Ratio 12.2 (8-20); Blood Urea Nitrogen 5 mg/dL (6-24); C Reactive Protein < 1.00 mg/L (< 5.00); CO2 Carbon Dioxide 26 mmol/L (22-32); Calcium 8.7 mg/dL (8.6-10.3); Chloride 95 mmol/L (101-111); Creatine Kinase 52 U/L (10-223); EGFR Non-African American 176.5 (>60); Globulin 1.8 g/dL (2-4); Glucose 90 mg/dL (70-100); Potassium 3.3 mmol/L (3.5-5.0); Sodium 124 mmol/L (133-145); Total Protein 5.8 g/dL (6.4-8.9)
[2017-07-16] MEDS ORDERED: HYDROcodone/ACETAMIN 5-325 MG* 1 TAB PO ONE ×2 (21:59→22:00)
[2017-07-16 22:08] LABS: TSH (Thyroid Stimulating Horm) 4.29 mcIU/mL (0.34-5.60)
--- NOTE | 2017-07-16 22:12 | ED ---
Rahel Bolton Thomas, scribed for Matti Romero MD on 07/16/17 at 2057 . Syncope/Near Syncope - HPI Summary HPI Summary: The pt is a 36 y/o F presenting to the ED s/p suffering 3 seizures today with the first at 09:00. She reports that she is experiencing her aura currently. She denies any seizures yesterday. Her most recent seizure prior to today was a couple days ago. Her medications are Briviact 50mg BID, Oxycarbazepine 300mg in the morning and 450 mg at night, and Onfi 10mg half tablet in the AM and one full tablet at night. Pt additionally c/o dental pain and nausea. PMHx: epilepsy , AVM, depression. PSHx: brain surgery, aneurysm clip, 5 C-sections, hysterectomy. SHx: former smoker, no alcohol use. - History Of Current Complaint Chief Complaint: EDSeizure Time Seen by Provider: 07/16/17 19:47 Hx Obtained From: Family/Gas Plumber Onset/Duration: Sudden Onset, Lasting Hours - onset 09:00 today, Still Present Aggravating Factor(s): Nothing Alleviating Factor(s): Nothing Associated Signs And Symptoms: Other - POS: tooth pain, nausea Related History: Similar Episode/Dx as - Many prior seizures - Allergies/Home Medications Allergies/Adverse Reactions: Allergies Allergy/AdvReac Type Severity Reaction Status Date / Time Bee Venom Allergy Severe Hives Verified 06/24/17 15:12 Morphine Allergy Severe Hives Verified 06/24/17 15:12 Mushroom Extract Complex Allergy Severe Hives Verified 06/24/17 15:12 Sulfa Antibiotics Allergy Intermediate Rash Verified 06/24/17 15:12 PMH/Surg Hx/FS Hx/Imm Hx Previously Healthy: No Endocrine/Hematology History: Reports: Hx Anemia - IV iron tx Denies: Hx Anticoagulant Therapy, Hx Diabetes, Hx Thyroid Disease Cardiovascular History: Denies: Hx Congestive Heart Failure, Hx Hypertension, Hx Pacemaker/ICD Comment Only: Other Cardiovascular Problems/Disorders - Arteriovenous malformation - Sx repair in 2008. Right atrial enlargement. 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 RT TEMPORAL LOBE IN 2008 [place] (removed scar tissue). 5 CSECTIONS Hx Anesthesia Reactions: No - Immunization History Date of Tetanus Vaccine: None Date of Influenza Vaccine: None Infectious Disease History: No Infectious Disease History: Denies: Hx Hepatitis, Hx Human Immunodeficiency Virus (HIV), Traveled Outside the US in Last 30 Days - Family History Known Family History: Positive: Cardiac Disease, Hypertension, Other - cancer Negative: Diabetes - Social History Alcohol Use: None Substance Use Comment - Amount & Last Used: Ativan Hx Tobacco Use: Yes Smoking Status (MU): Former Smoker Have You Smoked in the Last Year: Yes - had of close relative on 2016 so smoked to cope Review of Systems Negative: Fever Positive: Dental Pain Positive: Nausea Neurological: Other - POS: seizure x3, currently experiencing aura All Other Systems Reviewed And Are Negative: Yes Physical Exam Triage Information Reviewed: Yes Vital Signs On Initial Exam: Initial Vitals Temp Pulse Resp BP Pulse Ox 98.8 F 119 20 129/101 100 07/16/17 19:43 07/16/17 19:43 07/16/17 19:43 07/16/17 19:43 07/16/17 19:43 Vital Signs Reviewed: Yes Appearance: Positive: Well-Appearing, No Pain Distress, Well-Nourished Skin: Positive: Warm, Skin Color Reflects Adequate Perfusion, Dry Head/Face: Positive: Normal Head/Face Inspection Eyes: Positive: EOMI, CLAY ENT: Positive: Normal ENT inspection Dental: Positive: Other - On the bottom left rear molar there is severe decay. There are swollen gingiva Neck: Positive: Supple, Nontender Respiratory/Lung Sounds: Positive: Clear to Auscultation, Breath Sounds Present Cardiovascular: Positive: RRR Abdomen Description: Positive: Nontender, Soft Musculoskeletal: Positive: Normal, Strength/ROM Intact Neurological: Positive: Normal, Sensory/Motor Intact, Alert, Oriented to Person Place, Time Psychiatric: Positive: Affect/Mood Appropriate - Milo Coma Scale Coma Scale Total: 15 Diagnostics - Vital Signs Vital Signs Temp Pulse Resp BP Pulse Ox 07/16/17 19:46 99.5 F 98 18 125/84 100 07/16/17 19:43 98.8 F 119 20 129/101 100 - Laboratory Lab Results: Lab Results 07/16/17 07/16/17 07/16/17 Range/Units 21:16 21:16 21:16 WBC 5.6 (3.5-10.8) 10^3/ul RBC 3.66 L (4.0-5.4) 10^6/ul Hgb 10.9 L (12.0-16.0) g/dl Hct 32 L (35-47) % MCV 87 (80-97) fL MCH 30 (27-31) pg MCHC 34 (31-36) g/dl RDW 16 H (10.5-15) % Plt Count 319 (150-450) 10^3/ul MPV 6 L (7.4-10.4) um3 Neut % (Auto) 42.6 (38-83) % Lymph % (Auto) 43.5 (25-47) % Dale % (Auto) 8.7 (1-9) % Eos % (Auto) 4.6 (0-6) % Baso % (Auto) 0.6 (0-2) % Absolute Neuts (auto) 2.4 (1.5-7.7) 10^3/ul Absolute Lymphs (auto) 2.5 (1.0-4.8) 10^3/ul Absolute Monos (auto) 0.5 (0-0.8) 10^3/ul Absolute Eos (auto) 0.3 (0-0.6) 10^3/ul Absolute Basos (auto) 0 (0-0.2) 10^3/ul Absolute Nucleated RBC 0 10^3/ul Nucleated RBC % 0 Sodium 124 L (133-145) mmol/L Potassium 3.3 L (3.5-5.0) mmol/L Chloride 95 L (101-111) mmol/L Carbon Dioxide 26 (22-32) mmol/L Anion Gap 3 (2-11) mmol/L BUN 5 L (6-24) mg/dL Creatinine 0.41 L (0.51-0.95) mg/dL Est GFR ( Amer) 227.0 (>60) Est GFR (Non-Af Amer) 176.5 (>60) BUN/Creatinine Ratio 12.2 (8-20) Glucose 90 (70-100) mg/dL Lactic Acid 0.5 (0.5-2.0) mmol/L Calcium 8.7 (8.6-10.3) mg/dL Total Bilirubin 0.40 (0.2-1.0) mg/dL AST 16 (13-39) U/L ALT 14 (7-52) U/L Alkaline Phosphatase 36 (34-104) U/L Total Creatine Kinase 52 (10-223) U/L C-Reactive Protein < 1.00 (< 5.00) mg/L Total Protein 5.8 L (6.4-8.9) g/dL Albumin 4.0 (3.2-5.2) g/dL Globulin 1.8 L (2-4) g/dL Albumin/Globulin Ratio 2.2 (1-3) TSH Pending Beta HCG, Quant < 0.60 mIU/mL Result Diagrams: 07/16/17 21:16 07/16/17 21:16 Lab Statement: Any lab studies that have been ordered have been reviewed, and results considered in the medical decision making process. Course/Dx Assessment/Plan: The pt is a 36 y/o F presenting to the ED s/p suffering 3 seizures today with the first at 09:00. She reports that she is experiencing her aura currently. She denies any seizures yesterday. Her most recent seizure prior to today was a couple days ago. Her medications are Briviact 50mg BID, Oxycarbazepine 300mg in the morning and 450 mg at night, and Onfi 10mg half tablet in the AM and one full tablet at night. Pt additionally c/o dental pain and nausea. PMHx: epilepsy, AVM, depression. PSHx: brain surgery, aneurysm clip , 5 C-sections, hysterectomy. SHx: former smoker, no alcohol use. In the ED course the patient was given IV fluids, Zofran, Ativan, and Zoysn. Bloodwork shows RBC 3.66, Hgb 10.9, Hct 32, RDW 16, MPV 6, Sodium 124, Potassium 3.3., Chloride 95, BUN 5, creatinine 0.41, total protein 5.9. DISCUSSED WITH DR RUANO, NEUROLOGY. OXCARBAZEPINE CAN CAUSE HYPONATREMIA SO, HE RECOMMENDED ADDING SALT TO HER FOOD. HE DID NOT RECOMMEND SEIZURE MEDICATIONS AT THIS TIME. THIS WAS ALL DISCUSSED WITH THE PATIENT. WILL START PEN VK FOR HER DENTAL INFECTION. RX NORCO FOR C/O BODY PAIN S/P SEIZURES. F/U PMD, RECHECK SERUM SODIUM THIS WEEK. F/U NEUROLOGY. - Diagnoses Provider Diagnoses: Epilepsy, Hyponatremia, Dental infection - Physician Notifications Discussed Care of Patient With: Ezequiel Ruano Time Discussed With Above Provider: 21:52 Instructed by Provider To: Other - I consulted with Beatriz neurology, who recommends to keep the patient's meds the same but to add sodium to her diet. He believes her meds may be decreasing her sodium. Discharge - Discharge Plan Condition: Stable Disposition: HOME Prescriptions: HYDROcodone/ACETAMIN 5-325 MG* [[place] 5-325 TAB*] 1 tab PO Q4H PRN #10 tab MDD 6 PRN Reason: Pain Penicillin VK 500 MG TAB(NF) [Penicillin VK 500 mg Tab] 500 mg PO QID #40 tab Patient Education Materials: Epilepsy (ED), Hyponatremia (ED), Toothache (ED) Referrals: Madhavi Mayorga MD [Primary Care Provider] - Leatha Coles MD [Medical Doctor] - Additional Instructions: FOLLOW UP WITH YOUR DOCTOR. GET YOUR SODIUM RECHECKED THIS WEEK. ADD SALT TO YOUR FOOD FOR YOUR LOW BLOOD SODIUM (HYPONATREMIA). RETURN TO THE EMERGENCY DEPARTMENT FOR ANY WORSENING OF YOUR CONDITION OR QUESTIONS OR CONCERNS. The documentation as recorded by the Rahel weller Thomas accurately reflects the service I personally performed and the decisions made by me, Matti Romero MD.
[2017-07-16 22:26] VITALS: BP 99/67
[2017-07-17] MEDS ORDERED: Penicillin VK 500 MG TAB(NF) PO ONE (21:58)
== END 2017-07-16 22:29 | disposition home or self-care (01) ==
LOC: ED 19:42
DX: G40.909 Epilepsy, unspecified, not intractable, without status epilepticus (principal); K08.89 Other specified disorders of teeth and supporting structures; E87.1 Hypo-osmolality and hyponatremia; K04.7 Periapical abscess without sinus; R11.0 Nausea; Z87.891 Personal history of nicotine dependence
CPT/HCPCS: 36415; 80053; 80183; 82550; 83605; 84443; 84702; 85025; 86140; 96374; 96375; 99284; J2060; J2405; J2543

== ENCOUNTER 2017-08-11 11:59 | Emergency (ER) | payer OTHER ==
[2017-08-11 12:06] VITALS: BP 118/78
[2017-08-11] MEDS ORDERED: Hydrocortisone 1% CREAM* 30 GM TUBE TOPICAL ONE (13:32)
[2017-08-11] MEDS ORDERED: diPHENhydraMINE CREAM 2%(NF) 28 gm TUBE TOPICAL SCH (14:00)
[2017-08-11] MEDS ORDERED: diPHENhydraMINE PO* 25 MG PO ONE (15:09)
--- NOTE | 2017-08-11 16:16 | ED ---
Yaneth Bolton Emily, scribed for Marvin Kinsey MD on 08/11/17 at 1330 . Skin Complaint - HPI Summary HPI Summary: This patient is a 36 year old F presenting to [facility] with a chief complaint of skin rash on bilateral upper LE that began yesterday. The CC is described as pruritic. The patient rates the pain 0/10 in severity. Symptoms aggravated by nothing. Symptoms alleviated by nothing. Patient reports dizziness and ears ringing. Patient began a triamcinolone acetonide ointment recently. - History of Current Complaint Chief Complaint: EDAllergicReaction Time Seen by Provider: 08/11/17 13:06 Stated Complaint: MED REACTION Hx Obtained From: Patient Onset/Duration: Started Days Ago, Still Present Skin Exposure Onset/Duration: Days Ago Timing: Constant, Lasting Days Onset Severity: Mild Current Severity: Mild Pain Intensity: 0 Pain Scale Used: 0-10 Numeric Skin Location: Leg - Bilateral upper LE Character: Pruritus Aggravating Symptom(s): Nothing Alleviating Symptom(s): Nothing - Additional Pertinent History Primary Care Physician: CORAL - Allergy/Home Medications Allergies/Adverse Reactions: Allergies Allergy/AdvReac Type Severity Reaction Status Date / Time Bee Venom Allergy Severe Hives Verified 06/24/17 15:12 Morphine Allergy Severe Hives Verified 06/24/17 15:12 Mushroom Extract Complex Allergy Severe Hives Verified 06/24/17 15:12 Sulfa Antibiotics Allergy Intermediate Rash Verified 06/24/17 15:12 PMH/Surg Hx/FS Hx/Imm Hx Previously Healthy: No Endocrine/Hematology History: Reports: Hx Anemia - IV iron tx Denies: Hx Anticoagulant Therapy, Hx Diabetes, Hx Thyroid Disease Cardiovascular History: Denies: Hx Congestive Heart Failure, Hx Hypertension, Hx Pacemaker/ICD Comment Only: Other Cardiovascular Problems/Disorders - Arteriovenous malformation - Sx repair in 2008. Right atrial enlargement. 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 RT TEMPORAL LOBE IN 2008 [place] (removed scar tissue). 5 CSECTIONS Hx Anesthesia Reactions: No - Immunization History Date of Tetanus Vaccine: None Date of Influenza Vaccine: None Infectious Disease History: No Infectious Disease History: Denies: Hx Hepatitis, Hx Human Immunodeficiency Virus (HIV), Traveled Outside the [place] in Last 30 Days - Family History Known Family History: Positive: Cardiac Disease, Hypertension, Other - cancer Negative: Diabetes - Social History Alcohol Use: None Hx Substance Use: Yes Substance Use Type: Reports: Prescribed Substance Use Comment - Amount & Last Used: Ativan Hx Tobacco Use: Yes Smoking Status (MU): Former Smoker Have You Smoked in the Last Year: Yes - had of close relative on 2016 so smoked to cope Review of Systems Positive: Rash - Bilateral upper LE Neurological: Other - Dizziness and ears ringing All Other Systems Reviewed And Are Negative: Yes Physical Exam Triage Information Reviewed: Yes Vital Signs On Initial Exam: Initial Vitals Temp Pulse Resp BP Pulse Ox 98.0 F 83 14 118/78 99 08/11/17 12:02 08/11/17 12:02 08/11/17 12:02 08/11/17 12:02 08/11/17 12:02 Vital Signs Reviewed: Yes Appearance: Positive: Well-Appearing, No Pain Distress Skin: Positive: Warm, Skin Color Reflects Adequate Perfusion, Dry, Other - Urticarial rash left medial thigh and right lateral thigh Head/Face: Positive: Normal Head/Face Inspection Eyes: Positive: Normal ENT: Positive: Normal ENT inspection Neck: Positive: Supple, Nontender Respiratory/Lung Sounds: Positive: Clear to Auscultation, Breath Sounds Present Cardiovascular: Positive: RRR Abdomen Description: Positive: Nontender, Soft Bowel Sounds: Positive: Present Musculoskeletal: Positive: Normal Neurological: Positive: Normal Psychiatric: Positive: Affect/Mood Appropriate Diagnostics - Vital Signs Vital Signs Temp Pulse Resp BP Pulse Ox 08/11/17 12:02 98.0 F 83 14 118/78 99 - Laboratory Lab Statement: Any lab studies that have been ordered have been reviewed, and results considered in the medical decision making process. Course/Dx - Course Course Of Treatment: Ms. Mendez presented with an itchy rash on her thighs. It looks like bug bites with an allergic reaction to me and I will treat her symptomatically. She doesn't like how she feels after she uses the triamcinolone cream so I tried hydrocortisone and she tolerated it fine here. - Diagnoses Provider Diagnoses: Allergic reaction Discharge - Discharge Plan Condition: Stable Disposition: HOME Patient Education Materials: Urticaria (ED) Referrals: Madhavi Mayorga MD [Primary Care Provider] - 1 Week Additional Instructions: RETURN TO THE EMERGENCY DEPARTMENT FOR CHANGING OR WORSENING SYMPTOMS. The documentation as recorded by the Yaneth weller Emily accurately reflects the service I personally performed and the decisions made by me, Marvin Kinsey MD.
== END 2017-08-11 15:17 | disposition home or self-care (01) ==
LOC: ED 11:59
DX: T78.40XA Allergy, unspecified, initial encounter (principal); X58.XXXA Exposure to other specified factors, initial encounter; R21 Rash and other nonspecific skin eruption
CPT/HCPCS: 99281; A9270-GY

== ENCOUNTER 2017-08-18 17:08 | Emergency (ER) | payer OTHER ==
[2017-08-18] MEDS ORDERED: Ondansetron ODT TAB* 4 MG PO ONE (17:15)
[2017-08-18] MEDS ORDERED: Ondansetron ODT TAB* 4 MG ONE (17:17)
[2017-08-18 18:49] LABS: Hematocrit 36 % (35-47); Hemoglobin 12.5 g/dl (12.0-16.0); Mean Corpuscular HGB Conc 34 g/dl (31-36); Mean Corpuscular Hemoglobin 31 pg (27-31); Mean Corpuscular Volume 89 fL (80-97); Mean Platelet Volume 7 um3 (7.4-10.4); Red Blood Count 4.08 10^6/ul (4.0-5.4); Red Cell Distribution Width 16 % (10.5-15); White Blood Count 6.3 10^3/ul (3.5-10.8)
[2017-08-18 18:53] LABS: Urine Bilirubin Negative (Negative); Urine Glucose Negative (Negative); Urine Nitrite Negative (Negative)
[2017-08-18 19:04] LABS: Albumin 4.2 g/dL (3.2-5.2); Calcium 9.4 mg/dL (8.6-10.3); EGFR African American 165.2 (>60); EGFR Non-African American 128.5 (>60); Globulin 2.3 g/dL (2-4); Potassium 3.7 mmol/L (3.5-5.0); Total Bilirubin 0.3 mg/dL (0.2-1.0); Total Protein 6.5 g/dL (6.4-8.9)
[2017-08-18] MEDS ORDERED: Metoclopramide TAB* 10 MG PO ONE (20:14)
[2017-08-18] MEDS ORDERED: HYDROcodone/ACETAMIN 5-325 MG* 1 TAB PO ONE (20:19)
[2017-08-18 20:31] VITALS: BP 119/83
--- NOTE | 2017-08-19 10:43 | ED ---
Rahel Bolton Thomas, scribed for Flory Lei MD on 08/18/17 at 1934 . Progress - Progress Note Progress Note: The patient is a sign out from Dr. Lee at shift change. She says that she is feeling an aura that is the longest it has ever been. She describes this aura as a metallic taste, copper smell, left ear paresthesia , burning to her extremities, and decreased peripheral vision. She rates her current pain level 10/10. She is on hydrocodone PRN at home. The patient also complains of nausea despite recent Zofran. Pt's mother is with her at the bedside. She recently had an VNS placed recently at her left chest and left neck and states the pain is at the surgical site. Steristrips are in place and there is no drainage, redness or induration. The site is sensitive to touch. Her neurologist is Dr. Coles. The patient is stable. She will be discharged home. She will follow up with Dr. Coles in three days. Re-Evaluation - Re-Evaluation First Eval Re-Evaluation Time: 20:50 Change: Unchanged Comment: I re-evaluated the patient after nurse Alia Win told me that her aura was worsening. I discussed with the patient that the plan is for her to be discharged and that I have spoken with Dr. Solorio, who agrees with the discharge. Her nausea is better and her pain is somewhat better after hydrocodone and metoclopramide. Course/Dx - Course Course Of Treatment: given hydrocodone 5/325 and metoclopramide 10mg IV for pain and nausea under my care. Consulted with Dr. Solorio. No seizure in the ED. - Diagnoses Provider Diagnoses: Seizure disorder - Provider Notifications Discussed Care Of Patient With: Nadeem Solorio Time Discussed With Above Provider: 20:37 Instructed by Provider To: Other - I consulted with Dr. Solorio, neurology, regarding patient care. He says that the aura has been present for many hours, the patient has been observed in the ED, she is metabolically stable, and her peripheral vision defect is part of her normal vision aura. He states she is safe for dischage with her mother. He states she can return to the ED if her symptoms worsen. The documentation as recorded by the Rahel weller Thomas accurately reflects the service I personally performed and the decisions made by me, Flory Lei MD.
--- NOTE | 2017-08-20 06:11 | ED ---
Myrna Bloton Edward, scribed for Gumaro Lee MD on 08/18/17 at 1803 . Neurological HPI - HPI Summary HPI Summary: 36 y/o female presents to the ED c/o "seizure aura" starting this morning at 08: 00. The symptoms are not alleviated or aggravated by anything. Pt has not had any seizures today, only the aura. The pt states that the aura is an indicator of an upcoming seizure. The aura is located on the L side. The aura is described as a metallic taste, copper smell, vision deficiency described as "slanted" vision in one eye and poor peripheral vision in the other, L sided weakness and a general "burning sensation". Associated sx: dizziness. Pt had an AVM placed recently on her L upper chest/L neck area. - History of Current Complaint Chief Complaint: EDSeizure Stated Complaint: SEIZURE-LIKE SYMPTOMS,JUST HAD AVM PUT IN Time Seen by Provider: 08/18/17 18:02 Hx Obtained From: Patient Onset/Duration: Started hours ago Number of Seizures: 0 Neurological Deficit Location: Generalized Pain Intensity: 10 Character: Other: - seizure "aura" Aggravating: Nothing Alleviating: Nothing Associated Signs and Symptoms: Positive: Visual Changes - "slanted" vision in one eye, peripheral deficiencies in the other, Weakness, Dizziness, Seizure - No seizures, seizure "aura", Pain - "burning sensation" - Additional Pertinent History Primary Care Physician: [id number] - Allergy/Home Medications Allergies/Adverse Reactions: Allergies Allergy/AdvReac Type Severity Reaction Status Date / Time Bee Venom Allergy Severe Hives Verified 06/24/17 15:12 Morphine Allergy Severe Hives Verified 06/24/17 15:12 Mushroom Extract Complex Allergy Severe Hives Verified 06/24/17 15:12 Sulfa Antibiotics Allergy Intermediate Rash Verified 06/24/17 15:12 PMH/Surg Hx/FS Hx/Imm Hx Previously Healthy: No Endocrine/Hematology History: Reports: Hx Anemia - IV iron tx Denies: Hx Anticoagulant Therapy, Hx Diabetes, Hx Thyroid Disease Cardiovascular History: Denies: Hx Congestive Heart Failure, Hx Hypertension, Hx Pacemaker/ICD Comment Only: Other Cardiovascular Problems/Disorders - Arteriovenous malformation - Sx repair in 2008. Right atrial enlargement. 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 RT TEMPORAL LOBE IN 2008 [place] (removed scar tissue). 5 CSECTIONS Hx Anesthesia Reactions: No - Immunization History Date of Tetanus Vaccine: None Date of Influenza Vaccine: None Infectious Disease History: No Infectious Disease History: Denies: Hx Hepatitis, Hx Human Immunodeficiency Virus (HIV), Traveled Outside the [place] in Last 30 Days - Family History Known Family History: Positive: Cardiac Disease, Hypertension, Other - cancer Negative: Diabetes - Social History Alcohol Use: None Hx Substance Use: Yes Substance Use Type: Reports: None Substance Use Comment - Amount & Last Used: Ativan Hx Tobacco Use: Yes Smoking Status (MU): Former Smoker Have You Smoked in the Last Year: Yes - had of close relative on 2016 so smoked to cope Review of Systems Positive: Other - Copper smell, metallic taste Positive: Blurred Vision - "slanted" in one eye, poor peripheral vision in other ENT: Negative Cardiovascular: Negative Respiratory: Negative Gastrointestinal: Negative Genitourinary: Negative Musculoskeletal: Negative Skin: Negative Neurological: Other - "Burning sensation", dizziness Positive: Weakness - General L side weakness Psychological: Normal All Other Systems Reviewed And Are Negative: Yes Physical Exam - Summary Physical Exam Summary: VITAL SIGNS: Reviewed. GENERAL: ~Patient is a well-developed and nourished female who is lying comfortable in the stretcher. ~Patient is not in any acute respiratory distress. HEAD AND FACE: No signs of trauma. ~No ecchymosis, hematomas or skull depressions. No sinus tenderness. EYES: PERRLA, EOMI x 2, No injected conjunctiva, no nystagmus. EARS: Hearing grossly intact. Ear canals and tympanic membranes are within normal limits. MOUTH: Oropharynx within normal limits. NECK: Supple, trachea is midline, no adenopathy, no JVD, no carotid bruit, no c- spine tenderness, neck with full ROM. CHEST: Symmetric, no tenderness at palpation LUNGS: Clear to auscultation bilaterally. No wheezing or crackles. CVS: Regular rate and rhythm, S1 and S2 present, no murmurs or gallops appreciated. ABDOMEN: Soft, non-tender. No signs of distention. No rebound no guarding, and no masses palpated. Bowel sounds are normal. EXTREMITIES: FROM in all major joints, no edema, no cyanosis or clubbing. NEURO: Alert and oriented x 3. No acute neurological deficits. Speech is normal and follows commands. SKIN: Dry and warm. Incision at L side chest and L side neck is dry, clean and intact. Triage Information Reviewed: Yes Vital Signs On Initial Exam: Initial Vitals BP 135/96 08/18/17 17:16 Vital Signs Reviewed: Yes - [place] Coma Scale Coma Scale Total: 15 Diagnostics - Vital Signs Vital Signs Temp Pulse Resp BP Pulse Ox 08/18/17 17:30 83 118/80 98 08/18/17 17:18 98.4 F 86 22 144/99 100 08/18/17 17:17 94 98 08/18/17 17:16 135/96 - Laboratory Result Diagrams: 08/18/17 18:30 Lab Statement: Any lab studies that have been ordered have been reviewed, and results considered in the medical decision making process. Course/Dx - Course Assessment/Plan: 36 y/o female presents to the ED c/o "seizure aura" starting this morning at 08:00. The symptoms are not alleviated or aggravated by anything. Pt has not had any seizures today. The pt states that the aura is an indicator of an upcoming seizure. The aura is located on the L side. The aura is described as a metallic taste, copper smell, vision deficiency described as "slanted" vision in one eye and poor peripheral vision in the other, L sided weakness and a burning sensation. Associated sx: dizziness. Pt had an AVM placed recently. During exam the pt is A&Ox3 with no neurological deficits. Blood work is ordered and pending. I discussed with Dr. Solorio who recommends we r/o electrolyte abnormalities or infection. If everything is negative, pt can be d/c home with f/u with Dr. Coles. No changes in medications. Dr. Solorio did not request levels of keppra or any anti-seizure medications. At this point the pt will be signed out to Dr. Lei for f/u of test results and final assessment and disposition. Pt is hemodynamically stable and A&Ox3. 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
== END 2017-08-18 21:07 | disposition home or self-care (01) ==
LOC: ED 17:08
DX: G40.901 Epilepsy, unspecified, not intractable, with status epilepticus (principal); R53.1 Weakness; H53.8 Other visual disturbances; Z87.891 Personal history of nicotine dependence; R56.9 Unspecified convulsions
CPT/HCPCS: 36415; 80053; 81003; 85025; 99283; A9270-GY

== ENCOUNTER 2017-08-24 19:33 | Emergency (ER) | payer OTHER ==
[2017-08-24 21:24] LABS: Albumin 4.5 g/dL (3.2-5.2); BUN/Creatinine Ratio 14.5 (8-20); Calcium 9.4 mg/dL (8.6-10.3); EGFR African American 140.9 (>60); EGFR Non-African American 109.5 (>60); Globulin 2.2 g/dL (2-4); Potassium 3.6 mmol/L (3.5-5.0); Total Bilirubin 0.3 mg/dL (0.2-1.0); Total Protein 6.7 g/dL (6.4-8.9)
[2017-08-24] MEDS ORDERED: diPHENhydraMINE PO* 25 MG PO ONE (21:28)
[2017-08-24] MEDS ORDERED: diPHENhydraMINE PO* 25 MG ONE (21:29)
--- NOTE | 2017-08-24 21:36 | RAD ---
INDICATION: Shortness of breath. COMPARISON: Most recent comparison chest x-rays dated July 18, 2017 TECHNIQUE: Single AP portable view of the chest was obtained. FINDINGS: Image quality is compromised due to the relative inferiority of a portable chest x-ray. There is been an implantable device overlying the left upper chest with leads leading to the left of midline cervical spine. The heart and mediastinum exhibit normal size and contour. The lungs are grossly clear. There is no evidence of a large pleural effusion. Visualized bones are normal for the patient's age. IMPRESSION: No radiographic evidence for acute cardiopulmonary abnormality on this portable chest x-ray.
[2017-08-24 21:41] LABS: Hematocrit 38 % (35-47); Mean Corpuscular HGB Conc 34 g/dl (31-36); Mean Corpuscular Hemoglobin 31 pg (27-31); Mean Corpuscular Volume 90 fL (80-97); Mean Platelet Volume 7 um3 (7.4-10.4); Red Blood Count 4.26 10^6/ul (4.0-5.4); Red Cell Distribution Width 15 % (10.5-15); White Blood Count 7.9 10^3/ul (3.5-10.8)
[2017-08-24] MEDS ORDERED: Ondansetron INJ* 2 MG/ML VIAL IV ONE (22:38)
--- NOTE | 2017-08-24 23:54 | ED ---
Nico Bolton Alfonso, scribed for Phuong Tian MD on 08/24/17 at 2217 . Shortness of Breath - HPI Summary HPI Summary: This patient is a 36 year old [place] [facility] [place] with a chief complaint of SOB since 0900 today. The patient rates the pain 0/10 in severity. Pt with extensive hx of migraines. Pt is on antieleptic medications as well as has a vagal nerve stimulator. This was activated on Sun. Pt states the stimulator is scheduled to activate every 5 min. Pt states she feels it is firing more frequently. Pt has had 5 episodes today she had to use her magnet which gives an additional delivery. Pt states this hold her aura free for approx 1 hour. Pt has not had a seizure. Pt states she is having discomfort over her stimulator from "firing so much" Pt has called her neurologist 2 times a day - decided come to the ED to be evaluated. Pt states has had 3-4 sodas today. Little water. 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 - History of Current Complaint Chief Complaint: EDShortnessOfBreath Time Seen by Provider: 08/24/17 20:11 Hx Obtained From: Patient Onset/Duration: Gradual Onset Current Severity: Mild Associated Signs & Symptoms: Negative - Risk Factors Pulmonary Embolism: Negative - Allergy/Home Medications Allergies/Adverse Reactions: Allergies Allergy/AdvReac Type Severity Reaction Status Date / Time Bee Venom Allergy Severe Hives Verified 06/24/17 15:12 Morphine Allergy Severe Hives Verified 06/24/17 15:12 Mushroom Extract Complex Allergy Severe Hives Verified 06/24/17 15:12 Sulfa Antibiotics Allergy Intermediate Rash Verified 06/24/17 15:12 PMH/Surg Hx/FS Hx/Imm Hx Previously Healthy: Yes Endocrine/Hematology History: Reports: Hx Anemia - IV iron tx Denies: Hx Anticoagulant Therapy, Hx Diabetes, Hx Thyroid Disease Cardiovascular History: Denies: Hx Congestive Heart Failure, Hx Hypertension, Hx Pacemaker/ICD Comment Only: Other Cardiovascular Problems/Disorders - Arteriovenous malformation - Sx repair in 2008. Right atrial enlargement. 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 RT TEMPORAL LOBE IN 2008 [place] (removed scar tissue). 5 CSECTIONS Hx Anesthesia Reactions: No - Immunization History Date of Tetanus Vaccine: None Date of Influenza Vaccine: None Infectious Disease History: No Infectious Disease History: Denies: Hx Hepatitis, Hx Human Immunodeficiency Virus (HIV), Traveled Outside the [place] in Last 30 Days - Family History Known Family History: Positive: Cardiac Disease, Hypertension, Other - cancer Negative: Diabetes - Social History Alcohol Use: None Hx Substance Use: Yes Substance Use Type: Reports: None Substance Use Comment - Amount & Last Used: Ativan Hx Tobacco Use: Yes Smoking Status (MU): Light Every Day Tobacco Smoker Have You Smoked in the Last Year: Yes - had of close relative on 2016 so smoked to cope Review of Systems Constitutional: Negative Positive: Chest Pain Positive: Shortness Of Breath Neurological: Other - Migraine aura All Other Systems Reviewed And Are Negative: Yes Physical Exam Triage Information Reviewed: Yes Vital Signs On Initial Exam: Initial Vitals Temp Pulse Resp BP Pulse Ox 98.3 F 108 18 129/101 100 08/24/17 19:40 08/24/17 19:40 08/24/17 19:40 08/24/17 19:40 08/24/17 19:40 Vital Signs Reviewed: Yes Appearance: Positive: Well-Appearing, No Pain Distress, Well-Nourished Skin: Positive: Warm, Skin Color Reflects Adequate Perfusion Head/Face: Positive: Normal Head/Face Inspection Eyes: Positive: Normal, EOMI ENT: Positive: Normal ENT inspection, Hearing grossly normal, Pharynx normal, TMs normal Neck: Positive: Supple, Nontender, No Lymphadenopathy Respiratory/Lung Sounds: Positive: Clear to Auscultation, Breath Sounds Present Cardiovascular: Positive: Normal, RRR Abdomen Description: Positive: Nontender, No Organomegaly, Soft Bowel Sounds: Positive: Present Musculoskeletal: Positive: Normal Neurological: Positive: Normal, Sensory/Motor Intact, Alert, Oriented to Person Place, Time Psychiatric: Positive: Normal AVPU Assessment: Alert - [place] Coma Scale Best Eye Response: 4 - Spontaneous Best Motor Response: 6 - Obeys Commands Best Verbal Response: 5 - Oriented Coma Scale Total: 15 Diagnostics - Vital Signs Vital Signs Temp Pulse Resp BP Pulse Ox 08/24/17 22:00 88 100 08/24/17 21:32 81 113/90 98 08/24/17 21:30 84 64/38 99 08/24/17 21:02 76 104/82 98 08/24/17 21:00 77 98 08/24/17 20:30 77 122/86 98 08/24/17 20:00 89 133/104 97 08/24/17 19:40 98.3 F 106 21 129/101 100 - Laboratory Lab Results: Lab Results 08/24/17 08/24/17 Range/Units 21:00 21:34 WBC 7.9 (3.5-10.8) 10^3/ul RBC 4.26 (4.0-5.4) 10^6/ul Hgb 13.0 (12.0-16.0) g/dl Hct 38 (35-47) % MCV 90 (80-97) fL MCH 31 (27-31) pg MCHC 34 (31-36) g/dl RDW 15 (10.5-15) % Plt Count 274 (150-450) 10^3/ul MPV 7 L (7.4-10.4) um3 Neut % (Auto) 52.4 (38-83) % Lymph % (Auto) 35.3 (25-47) % Porter % (Auto) 7.1 (1-9) % Eos % (Auto) 4.7 (0-6) % Baso % (Auto) 0.5 (0-2) % Absolute Neuts (auto) 4.1 (1.5-7.7) 10^3/ul Absolute Lymphs (auto) 2.8 (1.0-4.8) 10^3/ul Absolute Monos (auto) 0.6 (0-0.8) 10^3/ul Absolute Eos (auto) 0.4 (0-0.6) 10^3/ul Absolute Basos (auto) 0 (0-0.2) 10^3/ul Absolute Nucleated RBC 0 10^3/ul Nucleated RBC % 0 Sodium 136 (133-145) mmol/L Potassium 3.6 (3.5-5.0) mmol/L Chloride 106 (101-111) mmol/L Carbon Dioxide 23 (22-32) mmol/L Anion Gap 7 (2-11) mmol/L BUN 9 (6-24) mg/dL Creatinine 0.62 (0.51-0.95) mg/dL Est GFR ( Amer) 140.9 (>60) Est GFR (Non-Af Amer) 109.5 (>60) BUN/Creatinine Ratio 14.5 (8-20) Glucose 88 (70-100) mg/dL Calcium 9.4 (8.6-10.3) mg/dL Total Bilirubin 0.30 (0.2-1.0) mg/dL AST 19 (13-39) U/L ALT 8 (7-52) U/L Alkaline Phosphatase 39 (34-104) U/L Total Creatine Kinase 67 (10-223) U/L Troponin I 0.00 (<0.04) ng/mL Total Protein 6.7 (6.4-8.9) g/dL Albumin 4.5 (3.2-5.2) g/dL Globulin 2.2 (2-4) g/dL Albumin/Globulin Ratio 2.0 (1-3) Result Diagrams: 08/24/17 21:34 08/24/17 21:00 Lab Statement: Any lab studies that have been ordered have been reviewed, and results considered in the medical decision making process. - Radiology CXR Radiology Interpretation Completed By: Radiologist - No radiographic evidence for acute cardiopulmonary abnormality on this portable chest x-ray. ED physician has reviewed this radiology report and agrees. - EKG 2111 Cardiac Rate: NL - - Re-Evaluation - Re-Evaluation First Eval Comment: Had lengthy conversation with Dr. Stevens. labs non concerning. Reommend decrease caffeine. hydrate. keep log of activity and epsidoes of magnet use. f.u with . no change to medication. pt and so comfortable and in agreement with plan. No change in management. will discharge Course/Dx - Course Assessment/Plan: Pt presents with increased aura - using vagal nerve stimluator at increased frequency. Pt has not missed doses of her medication. Will check labs and discuss with neurology - Diagnoses Provider Diagnoses: Seizures - Physician Notifications Discussed Care of Patient With: Dr. Stevens Time Discussed With Above Provider: 23:40 Discharge - Discharge Plan Condition: Stable Disposition: HOME Patient Education Materials: Epilepsy (ED) Referrals: Madhavi Mayorga MD [Primary Care Provider] - Additional Instructions: - Stay well hydrated. Work to decrease your caffeine intake. Drink plenty of water - eat regular, healthy meals -Keep a journal of your symptoms and activities. Document when you use your magnet to treat your auras - Keep your follow-up appointments as scheduled with Dr. Coles The documentation as recorded by the Nico weller Alfonso accurately reflects the service I personally performed and the decisions made by , Phuong Tian MD.
[2017-08-25] VITALS: BP 116/82
== END 2017-08-25 | disposition home or self-care (01) ==
LOC: ED 19:33
DX: R56.9 Unspecified convulsions (principal)
CPT/HCPCS: 36415; 71010; 80053; 82550; 84484; 85025; 93005; 99283; A9270-GY; J2405

== ENCOUNTER 2017-08-27 20:12 | Emergency (ER) | payer OTHER ==
[2017-08-27 20:18] VITALS: BP 120/90
== END 2017-08-27 21:52 | disposition left against medical advice (07) ==
LOC: ED 20:12
DX: H53.8 Other visual disturbances (principal); Z53.21 Procedure and treatment not carried out due to patient leaving prior to being seen by health care provider

== ENCOUNTER 2017-09-30 12:44 | Emergency (ER) | payer OTHER ==
[2017-09-30] MEDS ORDERED: LORazepam TAB(*) 1 MG PO ONE ×3 (13:05→14:24)
[2017-09-30] MEDS ORDERED: Ondansetron TAB* 4 MG PO ONE (13:05)
[2017-09-30 13:53] LABS: Hematocrit 35 % (35-47); Mean Corpuscular HGB Conc 34 g/dl (31-36); Mean Corpuscular Hemoglobin 31 pg (27-31); Mean Corpuscular Volume 91 fL (80-97); Mean Platelet Volume 7 um3 (7.4-10.4); Red Blood Count 3.86 10^6/ul (4.0-5.4); Red Cell Distribution Width 14 % (10.5-15); White Blood Count 5.5 10^3/ul (3.5-10.8)
[2017-09-30 14:09] LABS: ALT 17 U/L (7-52); AST 17 U/L (13-39); Albumin 4.3 g/dL (3.2-5.2); Alkaline Phosphatase 37 U/L (34-104); Anion Gap 6 mmol/L (2-11); BUN/Creatinine Ratio 25.9 (8-20); Blood Urea Nitrogen 14 mg/dL (6-24); CO2 Carbon Dioxide 23 mmol/L (22-32); Calcium 9.3 mg/dL (8.6-10.3); Chloride 106 mmol/L (101-111); EGFR African American 164.3 (>60); EGFR Non-African American 127.7 (>60); Globulin 1.9 g/dL (2-4); Glucose 85 mg/dL (70-100); Potassium 3.7 mmol/L (3.5-5.0); Sodium 135 mmol/L (133-145); Total Protein 6.2 g/dL (6.4-8.9)
--- NOTE | 2017-09-30 14:34 | ED ---
Bunny Bolton Abhishek, scribed for Cam Juares on 09/30/17 at 1310 . Syncope/Near Syncope - HPI Summary HPI Summary: This patient is a 37 year old F presenting to [facility] with a chief complaint of seizure since morning. Pt states that there may be a seizure coming and that c/o of an aura being off and also progressing. She also states that she is out of seizure of medication (clobazam) since and that she is unable to fill up her medication until tomorrow. The patient rates the pain 0/10 in severity. Symptoms aggravated by nothing. Symptoms alleviated by nothing. - History Of Current Complaint Chief Complaint: EDSeizure Time Seen by Provider: 09/30/17 12:48 Hx Obtained From: Patient Onset/Duration: Gradual Onset - since 09/27/17, Lasting Days - 09/27/17, Still Present Timing: Constant Aggravating Factor(s): Nothing Alleviating Factor(s): Nothing Associated Signs And Symptoms: Numbness, Seizure - Pt states she has an aura and believes a seizure may be coming soon, Other - nausea Related History: Similar Episode/Dx as - Hx of Seizure - Allergies/Home Medications Allergies/Adverse Reactions: Allergies Allergy/AdvReac Type Severity Reaction Status Date / Time Bee Venom Allergy Severe Hives Verified 09/07/17 07:56 Morphine Allergy Severe Hives Verified 09/07/17 07:56 Mushroom Extract Complex Allergy Severe Hives Verified 09/07/17 07:56 Sulfa Antibiotics Allergy Intermediate Rash Verified 09/07/17 07:56 enviromental Allergy Eyes Uncoded 09/07/17 08:12 Itchy/Swollen/Red/Watery PMH/Surg Hx/FS Hx/Imm Hx Endocrine/Hematology History: Reports: Hx Anemia - IV iron tx Denies: Hx Anticoagulant Therapy, Hx Diabetes, Hx Thyroid Disease Cardiovascular History: Denies: Hx Congestive Heart Failure, Hx Hypertension, Hx Pacemaker/ICD Comment Only: Other Cardiovascular Problems/Disorders - Arteriovenous malformation - Sx repair in 2008. Right atrial enlargement. 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 RT TEMPORAL LOBE IN 2008 [place] (removed scar tissue). 5 CSECTIONS. VNM simulater.07/2017 Hx Anesthesia Reactions: No - Immunization History Date of Tetanus Vaccine: None Date of Influenza Vaccine: None Infectious Disease History: No Infectious Disease History: Denies: Hx Hepatitis, Hx Human Immunodeficiency Virus (HIV), Traveled Outside the [place] in Last 30 Days - Family History Known Family History: Positive: Cardiac Disease, Hypertension, Other - cancer Negative: Diabetes - Social History Alcohol Use: None Hx Substance Use: No Substance Use Type: Reports: None Substance Use Comment - Amount & Last Used: Ativan Hx Tobacco Use: Yes Smoking Status (MU): Former Smoker Have You Smoked in the Last Year: Yes - had of close relative on 2016 so smoked to cope Review of Systems Constitutional: Negative Eyes: Negative ENT: Negative Cardiovascular: Negative Positive: Shortness Of Breath Positive: Nausea Genitourinary: Negative Musculoskeletal: Negative Skin: Negative Neurological: Other - Visual changes Positive: Numbness - intermittent on the left side, Slurred Speech - intermittent Psychological: Normal All Other Systems Reviewed And Are Negative: Yes Physical Exam - Summary Physical Exam Summary: Appearance: Well appearing, no pain distress Skin: warm, dry, reflects adequate perfusion Head/face: normal Eyes: EOMI, CLAY ENT: normal Neck: supple, non-tender Respiratory: CTA, breath sounds present Cardiovascular: RRR, pulses symmetrical Abdomen: non-tender, soft Bowel: present Musculoskeletal: normal, strength/ROM intact Neuro: normal, sensory motor intact, A&Ox3 Triage Information Reviewed: Yes Vital Signs On Initial Exam: Initial Vitals Temp Pulse Resp BP Pulse Ox 98.3 F 105 13 125/79 100 09/30/17 12:49 09/30/17 12:49 09/30/17 12:49 09/30/17 12:49 09/30/17 12:49 Vital Signs Reviewed: Yes Diagnostics - Vital Signs Vital Signs Temp Pulse Resp BP Pulse Ox 09/30/17 12:49 98.3 F 105 13 125/79 100 - Laboratory Lab Results: Lab Results 09/30/17 09/30/17 Range/Units 13:40 13:40 WBC 5.5 (3.5-10.8) 10^3/ul RBC 3.86 L (4.0-5.4) 10^6/ul Hgb 12.0 (12.0-16.0) g/dl Hct 35 (35-47) % MCV 91 (80-97) fL MCH 31 (27-31) pg MCHC 34 (31-36) g/dl RDW 14 (10.5-15) % Plt Count 227 (150-450) 10^3/ul MPV 7 L (7.4-10.4) um3 Neut % (Auto) 43.0 (38-83) % Lymph % (Auto) 40.3 (25-47) % [place] % (Auto) 9.5 H (1-9) % Eos % (Auto) 6.4 H (0-6) % Baso % (Auto) 0.8 (0-2) % Absolute Neuts (auto) 2.4 (1.5-7.7) 10^3/ul Absolute Lymphs (auto) 2.2 (1.0-4.8) 10^3/ul Absolute Monos (auto) 0.5 (0-0.8) 10^3/ul Absolute Eos (auto) 0.4 (0-0.6) 10^3/ul Absolute Basos (auto) 0 (0-0.2) 10^3/ul Absolute Nucleated RBC 0 10^3/ul Nucleated RBC % 0 Sodium 135 (133-145) mmol/L Potassium 3.7 (3.5-5.0) mmol/L Chloride 106 (101-111) mmol/L Carbon Dioxide 23 (22-32) mmol/L Anion Gap 6 (2-11) mmol/L BUN 14 (6-24) mg/dL Creatinine 0.54 (0.51-0.95) mg/dL Est GFR ( Amer) 164.3 (>60) Est GFR (Non-Af Amer) 127.7 (>60) BUN/Creatinine Ratio 25.9 H (8-20) Glucose 85 (70-100) mg/dL Calcium 9.3 (8.6-10.3) mg/dL Magnesium 2.0 (1.9-2.7) mg/dL Total Bilirubin 0.50 (0.2-1.0) mg/dL AST 17 (13-39) U/L ALT 17 (7-52) U/L Alkaline Phosphatase 37 (34-104) U/L Total Protein 6.2 L (6.4-8.9) g/dL Albumin 4.3 (3.2-5.2) g/dL Globulin 1.9 L (2-4) g/dL Albumin/Globulin Ratio 2.3 (1-3) Beta HCG, Quant < 0.60 mIU/mL Result Diagrams: 09/30/17 13:40 09/30/17 13:40 Lab Statement: Any lab studies that have been ordered have been reviewed, and results considered in the medical decision making process. Course/Dx Course Of Treatment: This patient is a 37 year old F presenting to [facility] with a chief complaint of seizure since morning. Pt states that there may be a seizure coming and that c/o of an aura being off and also progressing. She also states that she is out of seizure of medication (clobazam) since and that she is unable to fill up her medication until tomorrow. Patient reports intermittent aura as she ran out of anfi. In the ED course the patient was given Ativan. Patient will be discharged home and the patient is given instruction to follow up with Dr. Henderson within 3 days. pt will get her anfi filled tommorrow. The patient is agreeable with this plan. - Diagnoses Differential Diagnosis/HQI/PQRI: Positive: Hypoglycemia, Seizure Provider Diagnoses: History of seizure - Physician Notifications Discussed Care of Patient With: Ezequiel Henderson Time Discussed With Above Provider: 13:11 Instructed by Provider To: Other - He recommends to give patient Ativan and disposition of discharge home. Discharge - Discharge Plan Condition: Stable Disposition: HOME Patient Education Materials: Epilepsy (ED) Referrals: Ezequiel Henderson MD [Medical Doctor] - (Follow up with Dr. Henderson within 3 days.) Madhavi Mayorga MD [Primary Care Provider] - () The documentation as recorded by the Bunny weller Abhishek accurately reflects the service I personally performed and the decisions made by , Cam Juares.
[2017-09-30 14:48] VITALS: BP 100/74
== END 2017-09-30 14:47 | disposition home or self-care (01) ==
LOC: ED 12:44
DX: Z86.69 Personal history of other diseases of the nervous system and sense organs (principal)
CPT/HCPCS: 36415; 80053; 83735; 84702; 85025; 99283; A9270-GY

== ENCOUNTER → 2017-10-07 14:56 | Emergency (ER) | payer OTHER ==
[~2017-10-07 14:56] MED LIST: Ondansetron ODT TAB* 4 MG PO ONE
[2017-10-07 15:58] LABS: Hematocrit 36 % (35-47); Hemoglobin 12.4 g/dl (12.0-16.0); Mean Corpuscular HGB Conc 34 g/dl (31-36); Mean Corpuscular Hemoglobin 31 pg (27-31); Mean Corpuscular Volume 90 fL (80-97); Mean Platelet Volume 7 um3 (7.4-10.4); Red Blood Count 4.03 10^6/ul (4.0-5.4); Red Cell Distribution Width 14 % (10.5-15); White Blood Count 6.4 10^3/ul (3.5-10.8)
[2017-10-07 16:12] LABS: ALT 24 U/L (7-52); AST 35 U/L (13-39); Albumin 4.4 g/dL (3.2-5.2); Alkaline Phosphatase 41 U/L (34-104); Anion Gap 7 mmol/L (2-11); BUN/Creatinine Ratio 21.1 (8-20); Blood Urea Nitrogen 12 mg/dL (6-24); CO2 Carbon Dioxide 25 mmol/L (22-32); Calcium 9.1 mg/dL (8.6-10.3); Chloride 105 mmol/L (101-111); EGFR African American 154.3 (>60); Globulin 2.1 g/dL (2-4); Glucose 90 mg/dL (70-100); Potassium 3.5 mmol/L (3.5-5.0); Sodium 137 mmol/L (133-145); Total Protein 6.5 g/dL (6.4-8.9)
--- NOTE | 2017-10-07 16:21 | RAD ---
INDICATION: Fever and cough COMPARISON: Most recent comparison chest x-ray is dated August 24, 2017 TECHNIQUE: Single AP portable view of the chest was obtained. FINDINGS: Image quality is compromised due to the relative inferiority of a portable chest x-ray. Again seen is an implantable device overlying the left upper chest reportedly for seizure control. The heart and mediastinum exhibit normal size and contour. The lungs are grossly clear. There is no evidence of a large pleural effusion. Visualized bones are normal for the patient's age. IMPRESSION: No radiographic evidence for acute cardiopulmonary abnormality on this portable chest x-ray.
[2017-10-07 17:06] VITALS: BP 99/68
--- NOTE | 2017-10-07 20:31 | ED ---
Shanelle Bolton SooYoung, scribed for Marvin Kinsey MD on 10/07/17 at 1530 . Complex/Multi-Sys Presentation - HPI Summary HPI Summary: A 37 y/o F presents to ED with c/o sore throat onset [employer], she describes it as feeling "on fire." Associated sx: fever of 102.3 F, SOB, wheezing, productive cough with green/yellow phlegm, rhinorrhea, L ear pain, n/v/d, myalgia, neck pain, BHATIA, dizziness. Pt is unsure if she had a sz today, she notes she collapses multiple times. She is having an aura, plus metallic taste and copper smell. Pt took Tylenol and Naproxen to no relief. She's been unable to eat or drink due to the n/v. Took her sz medication today. - History Of Current Complaint Chief Complaint: EDGeneral Time Seen by Provider: 10/07/17 15:03 Hx Obtained From: Patient Onset/Duration: Still Present Timing: Constant Severity Currently: Moderate Severity Initially: Moderate Alleviating Factor(s): Nothing, tylenol and naproxen did not relieve sx. Associated Signs And Symptoms: Positive: Dizziness, Syncope, Headache, SOB, Cough, Wheezing, Nausea, Vomiting, Diarrhea, Abdominal Pain, Decreased Oral Intake, Fever, Other - pos: rhinorrhea, L ear pain, myalgia, neck pain, aura, metallic taste in mouth, copper smell - Allergies/Home Medications Allergies/Adverse Reactions: Allergies Allergy/AdvReac Type Severity Reaction Status Date / Time Bee Venom Allergy Severe Hives Verified 10/07/17 14:59 Morphine Allergy Severe Hives Verified 10/07/17 14:59 Mushroom Extract Complex Allergy Severe Hives Verified 10/07/17 14:59 Sulfa Antibiotics Allergy Intermediate Rash Verified 10/07/17 14:59 enviromental Allergy Eyes Uncoded 10/07/17 14:59 Itchy/Swollen/Red/Watery PMH/Surg Hx/FS Hx/Imm Hx Previously Healthy: No Endocrine/Hematology History: Reports: Hx Anemia - IV iron tx Denies: Hx Anticoagulant Therapy, Hx Diabetes, Hx Thyroid Disease Cardiovascular History: Denies: Hx Congestive Heart Failure, Hx Hypertension, Hx Pacemaker/ICD Comment Only: Other Cardiovascular Problems/Disorders - Arteriovenous malformation - Sx repair in 2008. Right atrial enlargement. 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 RT TEMPORAL LOBE IN 2008 [place] (removed scar tissue). 5 CSECTIONS. VNM simulater.07/2017 Hx Anesthesia Reactions: No - Immunization History Date of Tetanus Vaccine: None Date of Influenza Vaccine: None Infectious Disease History: No Infectious Disease History: Denies: Hx Hepatitis, Hx Human Immunodeficiency Virus (HIV), Traveled Outside the [place] in Last 30 Days - Family History Known Family History: Positive: Cardiac Disease, Hypertension, Other - cancer Negative: Diabetes - Social History Occupation: Unemployed Lives: With Family Alcohol Use: None Hx Substance Use: No Substance Use Type: Reports: None Substance Use Comment - Amount & Last Used: Ativan Hx Tobacco Use: Yes Smoking Status (MU): Former Smoker Have You Smoked in the Last Year: Yes - had of close relative on 2016 so smoked to cope Review of Systems Positive: Fever Positive: Sore Throat, Ear Ache - L ear, Nasal Discharge, Other - pos: copper smell, metallic taste Positive: Shortness Of Breath, Cough, Other - pos: wheezing Positive: Vomiting, Diarrhea, Nausea, Other - pos: decreased oral intake Positive: Myalgia, Other - pos: neck pain Neurological: Other - pos: dizziness, "aura" Positive: Headache, Syncope - collapses, multiple episodes All Other Systems Reviewed And Are Negative: Yes Physical Exam - Summary Physical Exam Summary: The patient is well-nourished in no acute distress and in no acute pain. The skin is warm and dry and skin color reflects adequate perfusion. HEENT: The head is normocephalic and atraumatic. The pupils are equal and reactive. The conjunctivae are clear and without drainage. Nares are patent and without drainage. Mouth reveals moist mucous membranes and the throat is without erythema and exudate. The external ears are intact. The ear canals are patent and without drainage. The tympanic membranes are intact. Neck is supple with full range of motion and non-tender. There are no carotid bruits. There is no neck vein distension. Respiratory: Chest is non-tender. Lungs are clear to auscultation and breath sounds are symmetrical and equal. Cardiovascular: Heart is regular rate and rhythm. There is no murmur or rub auscultated. There is no peripheral edema and pulses are symmetrical and equal. Abdomen: The abdomen is soft and non-tender. There are normal bowel sounds heard in all four quadrants and there is no organomegaly palpated. Musculoskeletal: There is no back pain noted. Extremities are non-tender with full range of motion. There is good capillary refill. There is no peripheral edema or calf tenderness elicited. Neurological: Patient is alert and oriented to person, place and time. The patient has symmetrical motor strength in all four extremities. Cranial nerves are grossly intact. Deep tendon reflexes are symmetrical and equal in all four extremities. Psychiatric: The patient has an appropriate affect and does not exhibit any anxiety or depression. Triage Information Reviewed: Yes Vital Signs On Initial Exam: Initial Vitals Temp Pulse Resp BP Pulse Ox 98.4 F 97 16 119/71 98 10/07/17 14:57 10/07/17 14:57 10/07/17 14:57 10/07/17 14:57 10/07/17 14:57 Vital Signs Reviewed: Yes Diagnostics - Vital Signs Vital Signs Temp Pulse Resp BP Pulse Ox 10/07/17 15:00 92 10/07/17 14:57 98.4 F 97 16 119/71 98 - Laboratory Lab Results: Lab Results 10/07/17 10/07/17 10/07/17 Range/Units 15:52 15:52 15:52 WBC 6.4 (3.5-10.8) 10^3/ul RBC 4.03 (4.0-5.4) 10^6/ul Hgb 12.4 (12.0-16.0) g/dl Hct 36 (35-47) % MCV 90 (80-97) fL MCH 31 (27-31) pg MCHC 34 (31-36) g/dl RDW 14 (10.5-15) % Plt Count 262 (150-450) 10^3/ul MPV 7 L (7.4-10.4) um3 Neut % (Auto) 60.3 (38-83) % Lymph % (Auto) 26.4 (25-47) % [place] % (Auto) 7.9 (1-9) % Eos % (Auto) 5.1 (0-6) % Baso % (Auto) 0.3 (0-2) % Absolute Neuts (auto) 3.9 (1.5-7.7) 10^3/ul Absolute Lymphs (auto) 1.7 (1.0-4.8) 10^3/ul Absolute Monos (auto) 0.5 (0-0.8) 10^3/ul Absolute Eos (auto) 0.3 (0-0.6) 10^3/ul Absolute Basos (auto) 0 (0-0.2) 10^3/ul Absolute Nucleated RBC 0 10^3/ul Nucleated RBC % 0 Sodium 137 (133-145) mmol/L Potassium 3.5 (3.5-5.0) mmol/L Chloride 105 (101-111) mmol/L Carbon Dioxide 25 (22-32) mmol/L Anion Gap 7 (2-11) mmol/L BUN 12 (6-24) mg/dL Creatinine 0.57 (0.51-0.95) mg/dL Est GFR ( Amer) 154.3 (>60) Est GFR (Non-Af Amer) 120.0 (>60) BUN/Creatinine Ratio 21.1 H (8-20) Glucose 90 (70-100) mg/dL Lactic Acid 1.3 (0.5-2.0) mmol/L Calcium 9.1 (8.6-10.3) mg/dL Total Bilirubin 0.20 (0.2-1.0) mg/dL AST 35 (13-39) U/L ALT 24 (7-52) U/L Alkaline Phosphatase 41 (34-104) U/L Total Protein 6.5 (6.4-8.9) g/dL Albumin 4.4 (3.2-5.2) g/dL Globulin 2.1 (2-4) g/dL Albumin/Globulin Ratio 2.1 (1-3) Beta HCG, Quant < 0.60 mIU/mL Result Diagrams: 10/07/17 15:52 10/07/17 15:52 Lab Statement: Any lab studies that have been ordered have been reviewed, and results considered in the medical decision making process. - Radiology CXR Xray Interpretation: No Acute Changes - No radiographic evidence for acute cardiopulmonary abnormality on this portable chest x-ray. ED physician has reviewed this radiology report and agrees. Radiology Interpretation Completed By: Radiologist Complex Multi-Symp Course/Dx Course Of Treatment: Ms. Mendez presented C/O URI symptoms for a couple days. Her main C/O is nausea at this time. She has been taking acetaminophen and ibuprofen and is afebrile on arrival. Her labs were OK and she had no observable seizure activity. - Diagnoses Provider Diagnoses: Upper respiratory disease Discharge - Discharge Plan Condition: Stable Disposition: HOME Prescriptions: Ondansetron ODT TAB* [Zofran Odt TAB*] 4 mg PO Q6H PRN #20 tab.odt PRN Reason: Nausea/Vomiting Patient Education Materials: Ondansetron (By mouth), Upper Respiratory Infection (ED) Referrals: Madhavi Mayorga MD [Primary Care Provider] - Additional Instructions: Please return to the ED if you experience new or worsening symptoms. The documentation as recorded by the Shanelle weller SooYoung accurately reflects the service I personally performed and the decisions made by me, Marvin Kinsey MD.
== END | disposition home or self-care (01) ==
LOC: ED 14:56
DX: J06.9 Acute upper respiratory infection, unspecified (principal); Z87.891 Personal history of nicotine dependence; D64.9 Anemia, unspecified; F32.9 Major depressive disorder, single episode, unspecified; Z88.5 Allergy status to narcotic agent; Z88.2 Allergy status to sulfonamides
CPT/HCPCS: 36415; 71010; 80053; 83605; 84702; 85025; 99283; A9270-GY

== ENCOUNTER 2017-10-30 03:10 | Emergency (ER) | payer OTHER ==
[2017-10-30] MEDS ORDERED: LORazepam INJ* 2 MG/ML 1 ML VIAL IV ONE (03:54)
[2017-10-30] MEDS ORDERED: NS 0.9% 1000 ML* 1,000 ML IV ONE (03:54)
[2017-10-30] MEDS ORDERED: Ondansetron INJ* 2 MG/ML VIAL IV ONE (04:14)
[2017-10-30] MEDS ORDERED: Ondansetron INJ* 2 MG/ML VIAL ONE (04:15)
[2017-10-30 04:31] LABS: ABS Basophils 0 10^3/ul (0-0.2); ABS Eosinophils 0.4 10^3/ul (0-0.6); ABS Lymphocytes 2.7 10^3/ul (1.0-4.8); ABS Monocytes 0.6 10^3/ul (0-0.8); ABS Neutrophils 3.3 10^3/ul (1.5-7.7); ABS Nucleated RBC 0 10^3/ul; Eosinophil % 5.2 % (0-6); Hematocrit 34 % (35-47); Hemoglobin 11.5 g/dl (12.0-16.0); Mean Corpuscular HGB Conc 34 g/dl (31-36); Mean Corpuscular Hemoglobin 30 pg (27-31); Mean Corpuscular Volume 90 fL (80-97); Mean Platelet Volume 7 um3 (7.4-10.4); Nucleated Red Blood Cells % 0.1; Platelet Count 237 10^3/ul (150-450); Red Blood Count 3.79 10^6/ul (4.0-5.4); Red Cell Distribution Width 13 % (10.5-15)
[2017-10-30 05:33] VITALS: BP 105/71
--- NOTE | 2017-11-12 02:52 | ED ---
Natalya Bolton Rebecca, scribed for Marizol Chen MD on 10/30/17 at 0348 . Complex/Multi-Sys Presentation - HPI Summary HPI Summary: Pt is a 37 y/o F BIBA who presents to ED c/o lightheadedness, dizziness and an aura. Pt reports that she typically experiences auras prior to seizures and that her aura is as they typically are, including a "metallic taste, pepper smell" "weakness, burning sensation on the left side." Additionally c/o myalgias , decreased appetite, and diffuse shaking. PMHx seizures. Took Naproxen, Tylenol and Benadryl tonight in addition to her usual medications. - History Of Current Complaint Chief Complaint: EDSeizure Time Seen by Provider: 10/30/17 03:32 Hx Obtained From: Patient Onset/Duration: Still Present Severity Initially: Severe Location: Pain At: - Diffuse myalgias Aggravating Factor(s): Nothing Alleviating Factor(s): Nothing Associated Signs And Symptoms: Positive: Other - Lightheadedness, dizizness, aura Related History: Similar Episode/Diagnosed As: - Prior auras - Allergies/Home Medications Allergies/Adverse Reactions: Allergies Allergy/AdvReac Type Severity Reaction Status Date / Time Bee Venom Allergy Severe Hives Verified 10/07/17 14:59 Morphine Allergy Severe Hives Verified 10/07/17 14:59 Mushroom Extract Complex Allergy Severe Hives Verified 10/07/17 14:59 Sulfa Antibiotics Allergy Intermediate Rash Verified 10/07/17 14:59 enviromental Allergy Eyes Uncoded 10/07/17 14:59 Itchy/Swollen/Red/Watery PMH/Surg Hx/FS Hx/Imm Hx Endocrine/Hematology History: Reports: Hx Anemia - IV iron tx Denies: Hx Anticoagulant Therapy, Hx Diabetes, Hx Thyroid Disease Cardiovascular History: Denies: Hx Congestive Heart Failure, Hx Hypertension, Hx Pacemaker/ICD Comment Only: Other Cardiovascular Problems/Disorders - Arteriovenous malformation - Sx repair in 2008. Right atrial enlargement. 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 RT TEMPORAL LOBE IN 2008 [place] (removed scar tissue). 5 CSECTIONS. VNM simulater.07/2017 Hx Anesthesia Reactions: No - Immunization History Date of Tetanus Vaccine: None Date of Influenza Vaccine: None Infectious Disease History: No Infectious Disease History: Denies: Hx Hepatitis, Hx Human Immunodeficiency Virus (HIV), Traveled Outside the [place] in Last 30 Days - Family History Known Family History: Positive: Cardiac Disease, Hypertension, Other - cancer Negative: Diabetes - Social History Alcohol Use: None Hx Substance Use: No Substance Use Type: Reports: None Substance Use Comment - Amount & Last Used: Ativan Hx Tobacco Use: Yes Smoking Status (MU): Former Smoker Have You Smoked in the Last Year: Yes - had of close relative on 2016 so smoked to cope Review of Systems Positive: Other - Decreased appetite Positive: Myalgia, Other - Diffuse shaking Neurological: Other - Lightheadedness, dizizness, aura All Other Systems Reviewed And Are Negative: Yes Physical Exam - Summary Physical Exam Summary: VITAL SIGNS: Reviewed. GENERAL: ~Patient is a well-developed and nourished female who is lying comfortable in the stretcher. Patient is not in any acute respiratory distress. HEAD AND FACE: No signs of trauma. No ecchymosis, hematomas or skull depressions. No sinus tenderness. EYES: PERRLA, EOMI x 2, No injected conjunctiva, no nystagmus. EARS: Hearing grossly intact. Ear canals and tympanic membranes are within normal limits. MOUTH: Oropharynx within normal limits. NECK: Supple, trachea is midline, no adenopathy, no JVD, no carotid bruit, no c- spine tenderness, neck with full ROM. CHEST: Symmetric, no tenderness at palpation LUNGS: Clear to auscultation bilaterally. No wheezing or crackles. CVS: Regular rate and rhythm, S1 and S2 present, no murmurs or gallops appreciated. EXTREMITIES: FROM in all major joints, no edema, no cyanosis or clubbing. Pt seems to have voluntary, jerky movements throughout the exam which are not a seizure. NEURO: Alert and oriented x 3. No acute neurological deficits. Speech is normal and follows commands. SKIN: Dry and warm Triage Information Reviewed: Yes Vital Signs On Initial Exam: Initial Vitals Temp Pulse Resp BP Pulse Ox 99.2 F 125 20 151/95 97 10/30/17 03:16 10/30/17 03:16 10/30/17 03:16 10/30/17 03:16 10/30/17 03:16 Vital Signs Reviewed: Yes - Wolfgang Coma Scale Coma Scale Total: 15 Diagnostics - Vital Signs Vital Signs Temp Pulse Resp BP Pulse Ox 10/30/17 03:16 99.2 F 125 20 151/95 97 - Laboratory Result Diagrams: 10/30/17 04:20 10/30/17 04:20 Lab Statement: Any lab studies that have been ordered have been reviewed, and results considered in the medical decision making process. Re-Evaluation - Re-Evaluation First Eval Re-Evaluation Time: 05:04 Change: Improved Complex Multi-Symp Course/Dx Assessment/Plan: Pt is a 37 y/o F BIBA who presents to ED c/o lightheadedness, dizziness and an aura. Pt reports that she typically experiences auras prior to seizures and that her aura is as they typically are. Additionally c/o myalgias, decreased appetite, and diffuse shaking. PMHx seizures. Took Naproxen, Tylenol and Benadryl tonight in addition to her usual medications. In the ED course, pt was given Ativan, Zofran and fluids which improved her sx. She will be D/C to home with Dx of anxiety. She understands and agrees. Allergies and elevated BP noted. - Diagnoses Provider Diagnoses: Anxiety Discharge - Discharge Plan Condition: Stable Disposition: HOME Patient Education Materials: Anxiety (ED) Referrals: Madhavi Mayorga MD [Primary Care Provider] - Additional Instructions: RETURN TO EMERGENCY DEPARTMENT FOR ANY NEW OR WORSENING SYMPTOMS The documentation as recorded by the Natalya weller Rebecca accurately reflects the service I personally performed and the decisions made by , Marizol Chen MD.
== END 2017-10-30 05:31 | disposition home or self-care (01) ==
LOC: ED 03:10
DX: F41.9 Anxiety disorder, unspecified (principal); Z87.891 Personal history of nicotine dependence; D64.9 Anemia, unspecified
CPT/HCPCS: 36415; 80053; 82550; 83605; 83735; 84702; 85025; 96360; 96374; 96375; 99284; J2060; J2405

== ENCOUNTER 2017-11-05 15:47 | Emergency (ER) | payer OTHER ==
[2017-11-05 16:22] VITALS: BP 110/67
--- NOTE | 2017-11-05 19:26 | UC ---
Dano Bolton Nilda, scribed for Matti Romero MD on 11/05/17 at 1717 . Dental HPI - HPI Summary HPI Summary: This patient is a 37 year old F presenting to [facility] with a chief complaint of constant upper and lower left dental pain for the past week. The patient rates the pain 10/10 in severity. Symptoms aggravated by chewing. Symptoms alleviated by nothing including Tylenol and Naproxen (originally for her Hx of migraines). - History of Current Complaint Chief Complaint: UCDentalProblem Stated Complaint: TOOTH PAIN Time Seen by Provider: 11/05/17 17:00 Hx Obtained From: Patient Hx Last Menstrual Period: 2013 Onset/Duration: Sudden Onset, Lasting Weeks - 1 week, Still Present Severity: Severe Pain Intensity: 10 Pain Scale Used: 0-10 Numeric Aggravating Factor(s): Chewing Alleviating Factor(s): Nothing - Allergies/Home Medications Allergies/Adverse Reactions: Allergies Allergy/AdvReac Type Severity Reaction Status Date / Time Bee Venom Allergy Severe Hives Verified 11/05/17 16:23 Morphine Allergy Severe Hives Verified 11/05/17 16:23 Mushroom Extract Complex Allergy Severe Hives Verified 11/05/17 16:23 Sulfa Antibiotics Allergy Intermediate Rash Verified 11/05/17 16:23 enviromental Allergy Eyes Uncoded 11/05/17 16:23 Itchy/Swollen/Red/Watery Home Medications: Home Medications Brivaracetam [Briviact] 1 tab PO DAILY 11/05/17 [History Confirmed 11/05/17] Clobazam [Onfi] 1 tab PO DAILY 11/05/17 [History Confirmed 11/05/17] Magnesium [Magnesium Elemental] 1 tab PO DAILY 11/05/17 [History Confirmed 11/05] Naproxen TAB* [Naprosyn 250 mg TAB*] 2 tab PO DAILY 11/05/17 [History Confirmed 11/05/17] PMH/Surg Hx/FS Hx/Imm Hx Neurological History: Seizures, Migraine Other History Of: Negative For: Anticoagulant Therapy - Surgical History Surgical History: Yes Surgery Procedure, Year, and Place: AVM REPAIR (CLIPPED, THEN CLIP WAS REMOVED - SEE REPORTS). RT TEMPORAL LOBE IN 2008 [place] (removed scar tissue). 5 CSECTIONS. VNM simulater.07/2017 - Family History Known Family History: Positive: Cardiac Disease, Hypertension, Other - cancer Negative: Diabetes - Social History Alcohol Use: None Substance Use Type: Prescribed Substance Use Comment - Amount & Last Used: Ativan Smoking Status (MU): Former Smoker Have You Smoked in the Last Year: Yes - had of close relative on 2016 so smoked to cope Household Exposure Type: Cigarettes - Immunization History Most Recent Influenza Vaccination: 2015 Most Recent Tetanus Shot: 2014 Most Recent Pneumonia Vaccination: UNSURE Review of Systems Skin: Other - negative rash ENT: Dental Pain - upper and lower left dental pain All Other Systems Reviewed And Are Negative: Yes Physical Exam Triage Information Reviewed: Yes Vital Signs: Initial Vital Signs Temp 98.6 F 11/05/17 16:19 Pulse 87 11/05/17 16:19 Resp 12 11/05/17 16:19 BP 110/67 11/05/17 16:19 Pulse Ox 97 11/05/17 16:19 Vital Signs Reviewed: Yes - Additional Comments General: well-appearing, no pain distress Skin: warm, color reflects adequate perfusion, dry Head: normal Dental: Severe dental decay of upper left molar and lower left molar Eyes: EOMI, CLAY ENT: normal Neck: supple, nontender Respiratory: CTA, breath sounds present Cardiovascular: RRR Abdomen: soft, nontender Bowel: present Musculoskeletal: normal, strength/ROM intact Neurological: normal, sensory/motor intact, A&O x3 Psychological: affect/mood appropriate Dental Complaint Course/Dx - Course Course Of Treatment: Allergies noted. Medications reviewed. - Differential Dx/Diagnosis Provider Diagnoses: DENTAL PAIN/INFECTION Discharge - Discharge Plan Condition: Stable Disposition: HOME Prescriptions: Amoxicillin PO (*) [Amoxicillin 875 MG (*)] 875 mg PO BID #20 tab HYDROcodone/ACETAMIN 5-325 MG* [[place] 5-325 TAB*] 1 tab PO Q4H PRN #10 tab MDD 6 PRN Reason: Pain Patient Education Materials: Toothache (ED) Referrals: Madhavi Mayorga MD [Primary Care Provider] - Additional Instructions: FOLLOW UP WITH YOUR DENTIST. GET RECHECKED FOR ANY WORSENING OF YOUR CONDITION OR QUESTIONS OR CONCERNS. The documentation as recorded by the Dano weller Nilda accurately reflects the service I personally performed and the decisions made by , Matti Romero MD.
== END 2017-11-05 17:22 | disposition home or self-care (01) ==
LOC: UCEAST 15:47
DX: K08.89 Other specified disorders of teeth and supporting structures (principal); K04.7 Periapical abscess without sinus; R56.9 Unspecified convulsions; Z87.891 Personal history of nicotine dependence
CPT/HCPCS: 99212; G0463

== ENCOUNTER 2017-11-19 12:34 | Emergency (ER) | payer OTHER ==
--- OUTSIDE RECORDS SUMMARY | 2017-11-19 13:18 | XMS REPORT ---
:1980 External Reference #:[id number] Author Organization [facility] Address [address] [address] Phone [phone] Care Team Providers Name Role Phone Madhavi Mayorga MD Primary Care Physician Unavailable Payers Type Date Identification Numbers Payment Provider Subscriber Commercial Effective: Policy Number: [id number] Total Care/Alan Diane 2016 [facility] PayID: [id number] [address] [address] [place] [address] Commercial Expires: 2017 Policy Number: Total Care/Alan Matos [id number] [facility] Andrea PayID: [id number] [address] [address] [place] [address] Problems Date Description Provider Status Onset: 11/25/2014 Partial seizure evolving to secondary Lucy Butcher M.D. 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 Leatha Coles MD Active complex partial seizures Onset: 08/04/2016 Taking medication Leatha Coles MD Active Onset: 01/22/2017 Anxiety state Leatha Coles MD Active Onset: 01/22/2017 Arteriovenous malformation, site Leatha Coles MD Active unspecified Onset: 09/18/2017 Migraine with typical aura Leatha Coles MD Active Onset: 09/04/2017 Binocular vision suppression Leatha Coles MD Active Onset: 08/21/2017 Nausea Leatha Coles MD Active Onset: 06/25/2017 Cerebral arteriovenous malformation Leatha Coles MD Active Social History Type Date Description Comments ETOH Use Denies alcohol use Smoking Patient is a former smoker Patient quit in 2003 Allergies, Adverse Reactions, Alerts Date Description Reaction Status Severity Comments 04/23/2013 Morphine active 11/25/2014 Lacosamide active Severe 11/25/2014 Zonisamide rash active Moderate Medications Medication Date Status Form Strength Qnty SIG Indications Ordering Provider Vicodin 10/10/ Active Tablets 5-300mg 3tabs take 1 po Lucy 2016 q 6 hours, Cowdery, as needed M.D. for pain Magnesium Oxide 09/18/ Active Tablets 400mg 30tab 1 by mouth G43.109 Leatha 2017 s every day MD Sanket Naproxen 09/18/ Active Tablets 500mg 60tab 1 up to G43.109 Leatha 2016 s twice a MD Sanket day as needed for migraine. Avoid using more than 2 to 3 times per week Ondansetron 08/21/ Active Tablets 4mg 30tab 1 up to R11.0 Leatha 2016 Dispers s three MD Sanket times a day as needed for nausea Briviact 07/28/ Active Tablets 100mg 60tab 1 tablet Leatha 2016 s twice MD Sanket daily Citalopram 04/23/ Active Tablets 20mg 60tab 2 by mouth F41.9 Leatha Hydrobromide 2016 s daily in MD Sanket the morning Onfi 04/12/ Active Tablets 10mg 45tab 1/2 tab Leatha 2017 s every MD Sanket morning and 1 tab by mouth every night at bedtime Acetaminophen / Active Tablets 325mg 120ta take 2 Unknown 0000 bs tabs prn Vitamin D / Active Tablets 2000Units 1 in Unknown (Cholecalciferol 0000 am,1000 ) units at night Ra / Active Tablets ER take 1 Unknown B-Complex/Vitami 0000 tablet n C CR once daily Potassium / Active Tablets ER 10Meq take 1 Unknown Chloride ER 0000 tablet by mouth once daily Oxcarbazepine / Active Tablets 300mg 135ta 1.5 po bid Mayte MJose 0000 zenobia Castañeda M.D. Ferrous Sulfate / Active Tablets 325(65Fe) 1 tab po Unknown 0000 mg qd Briviact 07/29/ Hx Tablets 50mg 32tab 2 by mouth Leatha 2017 Marline s twice MD Sanket 08/20/ daily 2016 Briviact 06/25/ Hx Tablets 50mg 28tab 1 by mouth Leatha 2016 - s twice MD Sanket 07/28/ daily 2016 Clonazepam 06/25/ Hx Tablets 0.125mg 35tab 1 twice a G40.219 Leatha 2017 Marline s day for 2 MD Sanket 07/23/ then 2016 1 once a day for 2 weeks then stop. Briviact 06/25/ Hx Tablets 50mg 60tab 1 by mouth Leatha 2016 s twice MD Sanket 07/28/ daily 2016 Levetiracetam 05/28/ Hx Tablets 1000mg 60tab 2 tabs by G40.219 Leatha 2016 - mouth MD Sanket 07/02/ twice a 2016 day Clonazepam 04/23/ Hx Tablets 0.5mg 30tab 1/2 tab Leatha 2016 Marline s twice a MD Sanket 06/25/ day 2016 Lorazepam 02/13/ Hx Tablets 0.5mg 30tab 1 tablet Leatha 2016 - s twice a MD Sanket 05/21/ day as 2017 needed for aura Fycompa 02/09/ Hx Tablets 2mg 120ta 1 tablet Leatha 2016 Marline at bedtime MD Sanket 04/19/ x1 week 2017 then 2 tablets at bedtime x1 week then 3 tablets at bedtime [id number] then 4 tablets at bedtime Citalopram 01/22/ Hx Tablets 10mg 60tab take 1 by F41.9 Leatha Hydrobromide 2016 mouth once MD Sanket 04/23/ daily for 2017 1 week then 2 by mouth once daily Phenytoin Sodium 10/09/ Hx Capsules 100mg 90cap 3 cap by Mayte Culver 2015 - mouth [place], 10/30/ every M.D. 2016 night Aptiom 01/10/ Hx Tablets 400mg 60tab 1 in am G40.211 Leatha 2015 Marline s MD Sanket 2016 Folic Acid 11/25/ Hx Tablets 1mg 30tab 1 by mouth V22.2 Lucy 2014 Marline s every day Guadalupe, 08/03/ M.D. 2015 Oxcarbazepine 08/01/ Hx Suspension 300mg/5ML 750ml 5ml by Leatha 2013 - mouth MD Sanket 10/31/ twice 2016 daily Folic Acid 09/02/ Hx Tablets 1mg 60tab take two Lucy 2011 - s by mouth Guadalupe 10/13/ each day M.D. 2012 Levetiracetam 08/21/ Hx Solution 100mg/ml 1200u take 4 Leatha 2012 - nits teaspoons MD Sanket 05/28/ in the Am 2016 and 4 teaspoons in the PM, shake before using Flintstones 00/00/ Hx Chewtabs 60mg Unknown Complete 0000 - 2012 Vitamin B12 / Hx Tablets ER 1000mcg 30tab 1 po qd Unknown 0000 - s 2012 Lorazepam / Hx Tablets 1mg 30tab 1 by mouth Leatha - s three MD Sanket 02/13/ times a 2016 day as needed for aura Nitrofurantoin / Hx Capsules 100mg 14cap 1 cap po Unknown Monohydrate 0000 - s bid x 7 12/15/ days 2013 Doxycycline 00/ Hx Capsules 100mg Stevanovi Hyclate 0000 - c, 03/19/ Madhavi 2014 Motrin Pilo / Hx Suspension 100mg/ml 3 tsp po Unknown Strength 0000 - prn 2015 Pepto-Bismol / Hx Suspension 262mg/15M 120ml as needed Unknown 0000 - L 2015 Flintstones Plus /00/ Hx Chewtabs daily Unknown Iron - 2014 Fish Oil / Hx Capsules 300mg 1 by mouth Unknown 0000 - every day 2015 Levothyroxine / Hx Tablets 75mcg 1 by mouth Unknown Sodium 0000 - every day 2015 Hydrocodone-Acet /00/ Hx Tablets 5-325mg Nick, aminophen 0000 - Mtati 12/21/ MD Arsenio 2016 Penicillin V 00/ Hx Tablets 500mg 4x a day Unknown Potassium 0000 - till out 2016 Clindamycin HCL 00/ Hx Capsules 150mg one every Unknown 0000 - 6 hours 2016 Hydrocodone-Acet 00/00/ Hx Tablets 5-325mg 1 tab by Unknown aminophen 0000 - mouth 10/20/ every 4- 6 2017 hours as needed pain Hydrocortisone 00/ Hx Cream 1% use Unknown 0000 - sparingly 09/07/ twice a 2017 day x 2 weeks Vital Signs Date Vital Result Comment 10/31/2017 Height 59 inches 4'11" Weight 84.00 lb Heart Rate 78 /min BP Systolic 100 mmHg BP Diastolic 68 mmHg BMI (Body Mass Index) 17.0 kg/m2 10/08/2017 Height 59 inches 4'11" Weight 84.00 lb Heart Rate 60 /min BP Systolic 98 mmHg BP Diastolic 62 mmHg BMI (Body Mass Index) 17.0 kg/m2 09/18/2017 Height 59 inches 4'11" Weight 83.00 lb Heart Rate 70 /min BP Systolic 92 mmHg BP Diastolic 60 mmHg BMI (Body Mass Index) 16.8 kg/m2 09/04/2017 Height 59 inches 4'11" Weight 81.38 lb Heart Rate 64 /min BP Systolic 102 mmHg BP Diastolic 62 mmHg BMI (Body Mass Index) 16.4 kg/m2 08/21/2017 Height 59 inches 4'11" Weight 81.38 lb Heart Rate 68 /min BP Systolic 102 mmHg BP Diastolic 78 mmHg BMI (Body Mass Index) 16.4 kg/m2 07/24/2017 Height 59 inches 4'11" Weight 84.12 lb Heart Rate 66 /min BP Systolic 90 mmHg BP Diastolic 60 mmHg BMI (Body Mass Index) 17.0 kg/m2 06/25/2017 Height 59 inches 4'11" Weight 84.12 lb Heart Rate 70 /min BP Systolic Sitting 98 mmHg BP Diastolic Sitting 60 mmHg Respiratory Rate 14 /min BMI (Body Mass Index) 17.0 kg/m2 05/21/2017 Height 59 inches 4'11" Weight 80.38 lb Heart Rate 84 /min BP Systolic Sitting 90 mmHg BP Diastolic Sitting 60 mmHg Respiratory Rate 14 /min BMI (Body Mass Index) 16.2 kg/m2 03/28/2017 Height 59 inches 4'11" Weight 82.00 lb Heart Rate 84 /min BP Systolic Sitting 108 mmHg BP Diastolic Sitting 60 mmHg Respiratory Rate 15 /min BMI (Body Mass Index) 16.6 kg/m2 02/27/2017 Height 59 inches 4'11" Weight 87.50 lb Heart Rate 72 /min BP Systolic Sitting 100 mmHg BP Diastolic Sitting 62 mmHg Respiratory Rate 17 /min BMI (Body Mass Index) 17.7 kg/m2 01/22/2017 Height 59 inches 4'11" Weight 88.12 lb Heart Rate 72 /min BP Systolic Sitting 100 mmHg BP Diastolic Sitting 60 mmHg Respiratory Rate 17 /min BMI (Body Mass Index) 17.8 kg/m2 10/31/2016 Height 59 inches 4'11" Weight 86.00 lb Heart Rate 104 /min BP Systolic Sitting 94 mmHg BP Diastolic Sitting 68 mmHg BMI (Body Mass Index) 17.4 kg/m2 08/04/2016 Height 59 inches 4'11" Weight 86.00 lb Heart Rate 65 /min BP Systolic Sitting 102 mmHg BP Diastolic Sitting 60 mmHg Respiratory Rate 14 /min O2 % BldC Oximetry 98 % BMI (Body Mass Index) 17.4 kg/m2 04/10/2016 Height 59 inches 4'11" Weight 90.50 lb Heart Rate 84 /min BP Systolic Sitting 104 mmHg BP Diastolic Sitting 62 mmHg Respiratory Rate 14 /min BMI (Body Mass Index) 18.3 kg/m2 01/10/2016 Height 59 inches 4'11" Weight 89.00 lb Heart Rate 76 /min BP Systolic Sitting 102 mmHg BP Diastolic Sitting 64 mmHg Respiratory Rate 14 /min BMI (Body Mass Index) 18.0 kg/m2 11/01/2015 Height 59 inches 4'11" Weight 94.00 lb Heart Rate 72 /min BP Systolic Sitting 114 mmHg BP Diastolic Sitting 68 mmHg Respiratory Rate 16 /min BMI (Body Mass Index) 19.0 kg/m2 11/25/2014 Height 59 inches 4'11" Weight 84.00 lb Heart Rate 68 /min BP Systolic Sitting 98 mmHg BP Diastolic Sitting 58 mmHg Respiratory Rate 16 /min BMI (Body Mass Index) 17.0 kg/m2 04/02/2014 Height 59 inches 4'11" Weight 88.00 lb Heart Rate 84 /min BP Systolic Sitting 102 mmHg BP Diastolic Sitting 70 mmHg Respiratory Rate 16 /min BMI (Body Mass Index) 17.8 kg/m2 12/15/2013 Heart Rate 68 /min BP Systolic Sitting 96 mmHg BP Diastolic Sitting 60 mmHg Respiratory Rate 16 /min 10/13/2013 Heart Rate 67 /min BP Systolic Sitting 100 mmHg BP Diastolic Sitting 60 mmHg Respiratory Rate 18 /min Results Test Date Test Result H/L Range Note Laboratory test 07/18/2017 Levetiracetam (Keppra) <2.0 g/mL 1 finding Trileptal (Oxcarbazepine) 35 g/mL 3 - 35 2 Urine Culture And 07/18/2017 Urine Culture SEE RESULT BELOW 3 Sensitivities Laboratory test finding 07/18/2017 Phosphorus 3.3 mg/dL 2.5-5.0 Magnesium 2.1 mg/dL 1.9-2.7 Thyroxine 4.33 g/mL Low 6.09-12.23 TSH (Thyroid Stim Horm) 3.84 mcIU/mL 0.34-5.60 Prolactin 9.4 ng/mL 1.0-25.0 Vitamin D Total 25(Oh) 55.0 ng/mL High 30-50 CBC Auto Diff 07/18/2017 White Blood Count 6.3 10^3/uL 3.5-10.8 Red Blood Count 4.21 10^6/uL 4.0-5.4 Hemoglobin 12.5 g/dL 12.0-16.0 Hematocrit 37 % 35-47 Mean Corpuscular Volume 88 fL 80-97 Mean Corpuscular Hemoglobin 30 pg 27-31 Mean Corpuscular HGB Conc 34 g/dL 31-36 Red Cell Distribution Width 17 % High 10.5-15 Platelet Count 394 10^3/uL 150-450 Mean Platelet Volume 7 um3 Low 7.4-10.4 Abs Neutrophils 2.7 10^3/uL 1.5-7.7 Abs Lymphocytes 2.6 10^3/uL 1.0-4.8 Abs Monocytes 0.6 10^3/uL 0-0.8 Abs Eosinophils 0.3 10^3/uL 0-0.6 Abs Basophils 0 10^3/uL 0-0.2 Abs Nucleated RBC 0 10^3/uL Granulocyte % 43.3 % 38-83 Lymphocyte % 41.1 % 25-47 Monocyte % 10.1 % High 1-9 Eosinophil % 4.9 % 0-6 Basophil % 0.6 % 0-2 Nucleated Red Blood Cells % 0.1 Inr/Protime 07/18/2017 Inr 0.92 0.89-1.11 Comp Metabolic Panel 07/18/2017 Sodium 137 mmol/L 133-145 Potassium 3.8 mmol/L 3.5-5.0 Chloride 103 mmol/L 101-111 Co2 Carbon Dioxide 29 mmol/L 22-32 Anion Gap 5 mmol/L 2-11 Glucose 81 mg/dL 70-100 Blood Urea Nitrogen 7 mg/dL 6-24 Creatinine 0.60 mg/dL 0.51-0.95 BUN/Creatinine Ratio 11.7 8-20 Calcium 9.9 mg/dL 8.6-10.3 Total Protein 6.6 g/dL 6.4-8.9 Albumin 4.5 g/dL 3.2-5.2 Globulin 2.1 g/dL 2-4 Albumin/Globulin Ratio 2.1 1-3 Total Bilirubin 0.20 mg/dL 0.2-1.0 Alkaline Phosphatase 41 U/L 34-104 Alt 13 U/L 7-52 Ast 17 U/L 13-39 Egfr Non- 113.8 >60 Egfr 146.3 >60 4 Urinalysis Profile 07/18/2017 Urine Color Yellow Urine Appearance Cloudy Urine Specific [place] 1.015 1.010-1.030 Urine pH 5.0 5-9 Urine Urobilinogen Negative Negative Urine Ketones Negative Negative Urine Protein Negative Negative Urine Leukocytes Trace Negative Urine Blood 1+ Negative Urine Nitrite Negative Negative Urine Bilirubin Negative Negative Urine Glucose Negative Negative Urine White Blood Cell Trace(0-5/hpf) Absent Urine Red Blood Cell Trace(0-2/hpf) Absent Urine Bacteria Absent Absent Urine Squamous Epithelial Cell Present Absent Laboratory test finding 07/18/2017 Partial Thrombo Time 32.2 seconds 26.0 -36.3 PTT CBC Auto Diff 06/26/2017 White Blood Count 6.6 10^3/uL 3.5-10.8 Red Blood Count 3.70 10^6/uL Low 4.0-5.4 Hemoglobin 10.7 g/dL Low 12.0-16.0 Hematocrit 32 % Low 35-47 Mean Corpuscular Volume 87 fL 80-97 Mean Corpuscular Hemoglobin 29 pg 27-31 Mean Corpuscular HGB Conc 33 g/dL 31-36 Red Cell Distribution Width 15 % 10.5-15 Platelet Count 294 10^3/uL 150-450 Mean Platelet Volume 7 um3 Low 7.4-10.4 Abs Neutrophils 2.9 10^3/uL 1.5-7.7 Abs Lymphocytes 2.8 10^3/uL 1.0-4.8 Abs Monocytes 0.6 10^3/uL 0-0.8 Abs Eosinophils 0.3 10^3/uL 0-0.6 Abs Basophils 0 10^3/uL 0-0.2 Abs Nucleated RBC 0 10^3/uL Granulocyte % 43.9 % 38-83 Lymphocyte % 42.5 % 25-47 Monocyte % 8.8 % 1-9 Eosinophil % 4.1 % 0-6 Basophil % 0.7 % 0-2 Nucleated Red Blood Cells % 0 Inr/Protime 06/26/2017 Inr 0.92 0.89-1.11 Laboratory test finding 06/26/2017 Lactic Acid 0.4 mmol/L Low 0.5-2.0 5 Comp Metabolic Panel 06/26/2017 Sodium 131 mmol/L Low 133-145 Chloride 102 mmol/L 101-111 Co2 Carbon Dioxide 23 mmol/L 22-32 Glucose 83 mg/dL 70-100 Blood Urea Nitrogen 10 mg/dL 6-24 Creatinine 0.49 mg/dL Low 0.51-0.95 BUN/Creatinine Ratio 20.4 High 8-20 Calcium 8.8 mg/dL 8.6-10.3 Total Protein 6.0 g/dL Low 6.4-8.9 Albumin 4.0 g/dL 3.2-5.2 Globulin 2.0 g/dL 2-4 Albumin/Globulin Ratio 2.0 1-3 Total Bilirubin 0.20 mg/dL 0.2-1.0 Alkaline Phosphatase 40 U/L 34-104 Alt 10 U/L 7-52 Egfr Non- 143.7 >60 Egfr 184.8 >60 6 Potassium 4.1 mmol/L 3.5-5.0 Anion Gap 6 mmol/L 2-11 Ast 19 U/L 13-39 Laboratory test finding 06/26/2017 Magnesium 2.0 mg/dL 1.9-2.7 CBC Auto Diff 05/27/2017 White Blood Count 5.6 10^3/uL 3.5-10.8 Red Blood Count 3.87 10^6/uL Low 4.0-5.4 Hemoglobin 11.1 g/dL Low 12.0-16.0 Hematocrit 34 % Low 35-47 Mean Corpuscular Volume 87 fL 80-97 Mean Corpuscular Hemoglobin 29 pg 27-31 Mean Corpuscular HGB Conc 33 g/dL 31-36 Red Cell Distribution Width 15 % 10.5-15 Platelet Count 284 10^3/uL 150-450 Mean Platelet Volume 8 um3 7.4-10.4 Abs Neutrophils 2.7 10^3/uL 1.5-7.7 Abs Lymphocytes 2.0 10^3/uL 1.0-4.8 Abs Monocytes 0.6 10^3/uL 0-0.8 Abs Eosinophils 0.2 10^3/uL 0-0.6 Abs Basophils 0 10^3/uL 0-0.2 Abs Nucleated RBC 0 10^3/uL Granulocyte % 49.1 % 38-83 Lymphocyte % 35.5 % 25-47 Monocyte % 10.1 % High 1-9 Eosinophil % 4.4 % 0-6 Basophil % 0.9 % 0-2 Nucleated Red Blood Cells % 0 Comp Metabolic Panel 05/27/2017 Sodium 137 mmol/L 133-145 Potassium 3.8 mmol/L 3.5-5.0 Chloride 107 mmol/L 101-111 Co2 Carbon Dioxide 25 mmol/L 22-32 Anion Gap 5 mmol/L 2-11 Glucose 93 mg/dL 70-100 Blood Urea Nitrogen 10 mg/dL 6-24 Creatinine 0.52 mg/dL 0.51-0.95 BUN/Creatinine Ratio 19.2 8-20 Calcium 9.2 mg/dL 8.6-10.3 Total Protein 6.2 g/dL Low 6.4-8.9 Albumin 4.1 g/dL 3.2-5.2 Globulin 2.1 g/dL 2-4 Albumin/Globulin Ratio 2.0 1-3 Total Bilirubin 0.20 mg/dL 0.2-1.0 Alkaline Phosphatase 45 U/L 34-104 Alt 21 U/L 7-52 Ast 24 U/L 13-39 Egfr Non- 134.2 >60 Egfr 172.6 >60 7 Laboratory test finding 05/27/2017 Magnesium 2.0 mg/dL 1.9-2.7 Laboratory test finding 05/20/2017 Lactic Acid 1.0 mmol/L 0.5-2.0 8 CBC Auto Diff 05/20/2017 White Blood Count 7.4 10^3/uL 3.5-10.8 Red Blood Count 3.95 10^6/uL Low 4.0-5.4 Hemoglobin 11.6 g/dL Low 12.0-16.0 Hematocrit 34 % Low 35-47 Mean Corpuscular Volume 86 fL 80-97 Mean Corpuscular Hemoglobin 29 pg 27-31 Mean Corpuscular HGB Conc 34 g/dL 31-36 Red Cell Distribution Width 14 % 10.5-15 Platelet Count 283 10^3/uL 150-450 Mean Platelet Volume 7 um3 Low 7.4-10.4 Abs Neutrophils 3.4 10^3/uL 1.5-7.7 Abs Lymphocytes 2.9 10^3/uL 1.0-4.8 Abs Monocytes 0.6 10^3/uL 0-0.8 Abs Eosinophils 0.4 10^3/uL 0-0.6 Abs Basophils 0.1 10^3/uL 0-0.2 Abs Nucleated RBC 0.01 10^3/uL Granulocyte % 45.5 % 38-83 Lymphocyte % 39.6 % 25-47 Monocyte % 8.2 % 1-9 Eosinophil % 6.0 % 0-6 Basophil % 0.7 % 0-2 Nucleated Red Blood Cells % 0.1 Comp Metabolic Panel 05/20/2017 Sodium 137 mmol/L 133-145 Potassium 3.6 mmol/L 3.5-5.0 Chloride 106 mmol/L 101-111 Co2 Carbon Dioxide 24 mmol/L 22-32 Anion Gap 7 mmol/L 2-11 Glucose 96 mg/dL 70-100 Blood Urea Nitrogen 11 mg/dL 6-24 Creatinine 0.58 mg/dL 0.51-0.95 BUN/Creatinine Ratio 19.0 8-20 Calcium 9.3 mg/dL 8.6-10.3 Total Protein 6.5 g/dL 6.4-8.9 Albumin 4.3 g/dL 3.2-5.2 Globulin 2.2 g/dL 2-4 Albumin/Globulin Ratio 2.0 1-3 Total Bilirubin 0.20 mg/dL 0.2-1.0 Alkaline Phosphatase 47 U/L 34-104 Alt 13 U/L 7-52 Ast 19 U/L 13-39 Egfr Non- 118.3 >60 Egfr 152.1 >60 9 Laboratory test finding 05/20/2017 Magnesium 2.2 mg/dL 1.9-2.7 Carbamazepine (Tegretol) 2.0 g/mL Low 4.0-12.0 Inr/Protime 05/20/2017 Inr 0.90 0.89-1.11 Laboratory test finding 05/20/2017 Levetiracetam (Keppra) 28.8 g/mL 10 CBC Auto Diff 05/05/2017 White Blood Count 6.8 10^3/uL 3.5-10.8 Red Blood Count 3.98 10^6/uL Low 4.0-5.4 Hemoglobin 10.9 g/dL Low 12.0-16.0 Hematocrit 34 % Low 35-47 Mean Corpuscular Volume 85 fL 80-97 Mean Corpuscular Hemoglobin 28 pg 27-31 Mean Corpuscular HGB Conc 32 g/dL 31-36 Red Cell Distribution Width 14 % 10.5-15 Platelet Count 221 10^3/uL 150-450 Mean Platelet Volume 8 um3 7.4-10.4 Abs Neutrophils 3.7 10^3/uL 1.5-7.7 Abs Lymphocytes 2.3 10^3/uL 1.0-4.8 Abs Monocytes 0.5 10^3/uL 0-0.8 Abs Eosinophils 0.3 10^3/uL 0-0.6 Abs Basophils 0 10^3/uL 0-0.2 Abs Nucleated RBC 0.02 10^3/uL Granulocyte % 54.4 % 38-83 Lymphocyte % 34.0 % 25-47 Monocyte % 7.3 % 1-9 Eosinophil % 3.8 % 0-6 Basophil % 0.5 % 0-2 Nucleated Red Blood Cells % 0.3 Urinalysis Profile 05/05/2017 Urine Color Yellow Urine Appearance Cloudy Urine Specific Deep [place] 1.013 1.010-1.030 Urine pH 7.0 5-9 Urine Urobilinogen Negative Negative Urine Ketones Negative Negative Urine Protein Negative Negative Urine Leukocytes Trace Negative Urine Blood Negative Negative * * Negative 11 Urine Nitrite Negative Negative Urine Bilirubin Negative Negative Urine Glucose Negative Negative Urine White Blood Cell Trace(0-5/hpf) Absent Urine Red Blood Cell Absent Absent Urine Bacteria 3+ Absent Urine Squamous Epithelial Cell Present Absent Comp Metabolic Panel 05/05/2017 Sodium 133 mmol/L 133-145 Potassium 3.7 mmol/L 3.5-5.0 Chloride 103 mmol/L 101-111 Co2 Carbon Dioxide 24 mmol/L 22-32 Anion Gap 6 mmol/L 2-11 Glucose 90 mg/dL 70-100 Blood Urea Nitrogen 9 mg/dL 6-24 Creatinine 0.50 mg/dL Low 0.51-0.95 BUN/Creatinine Ratio 18.0 8-20 Calcium 9.1 mg/dL 8.6-10.3 Total Protein 6.1 g/dL Low 6.4-8.9 Albumin 4.0 g/dL 3.2-5.2 Globulin 2.1 g/dL 2-4 Albumin/Globulin Ratio 1.9 1-3 Total Bilirubin 0.20 mg/dL 0.2-1.0 Alkaline Phosphatase 44 U/L 34-104 Alt 12 U/L 7-52 Ast 17 U/L 13-39 Egfr Non- 140.4 >60 Egfr 180.6 >60 12 Laboratory test finding 05/05/2017 Magnesium 1.9 mg/dL 1.9-2.7 TSH (Thyroid Stim Horm) 1.80 mcIU/mL 0.34-5.60 Urine Culture And 05/05/2017 Urine Culture SEE RESULT 13 Sensitivities BELOW Laboratory test finding 05/05/2017 Levetiracetam (Keppra) 36.5 g/mL 14 Inr/Protime 04/29/2017 Inr 0.91 0.89-1.11 CBC Auto Diff 04/29/2017 White Blood Count 9.2 10^3/uL 3.5-10.8 Red Blood Count 3.94 10^6/uL Low 4.0-5.4 Hemoglobin 11.2 g/dL Low 12.0-16.0 Hematocrit 34 % Low 35-47 Mean Corpuscular Volume 86 fL 80-97 Mean Corpuscular Hemoglobin 29 pg 27-31 Mean Corpuscular HGB Conc 33 g/dL 31-36 Red Cell Distribution Width 15 % 10.5-15 Platelet Count 237 10^3/uL 150-450 Mean Platelet Volume 8 um3 7.4-10.4 Abs Neutrophils 5.4 10^3/uL 1.5-7.7 Abs Lymphocytes 2.7 10^3/uL 1.0-4.8 Abs Monocytes 0.7 10^3/uL 0-0.8 Abs Eosinophils 0.3 10^3/uL 0-0.6 Abs Basophils 0.1 10^3/uL 0-0.2 Abs Nucleated RBC 0.02 10^3/uL Granulocyte % 58.8 % 38-83 Lymphocyte % 29.6 % 25-47 Monocyte % 7.5 % 1-9 Eosinophil % 3.2 % 0-6 Basophil % 0.9 % 0-2 Nucleated Red Blood Cells % 0.2 Laboratory test finding 04/29/2017 Lactic Acid 1.4 mmol/L 0.5-2.0 15 Comp Metabolic Panel 04/29/2017 Sodium 136 mmol/L 133-145 Potassium 3.6 mmol/L 3.5-5.0 Chloride 105 mmol/L 101-111 Co2 Carbon Dioxide 25 mmol/L 22-32 Anion Gap 6 mmol/L 2-11 Glucose 91 mg/dL 70-100 Blood Urea Nitrogen 10 mg/dL 6-24 Creatinine 0.55 mg/dL 0.51-0.95 BUN/Creatinine Ratio 18.2 8-20 Calcium 9.5 mg/dL 8.6-10.3 Total Protein 6.3 g/dL Low 6.4-8.9 Albumin 4.2 g/dL 3.2-5.2 Globulin 2.1 g/dL 2-4 Albumin/Globulin Ratio 2.0 1-3 Total Bilirubin 0.20 mg/dL 0.2-1.0 Alkaline Phosphatase 48 U/L 34-104 Alt 12 U/L 7-52 Ast 18 U/L 13-39 Egfr Non- 125.8 >60 Egfr 161.8 >60 16 Laboratory test finding 04/29/2017 Magnesium 2.0 mg/dL 1.9-2.7 Levetiracetam (Keppra) 66.4 g/mL 17 Trileptal (Oxcarbazepine) 28 g/mL 3 - 35 18 Laboratory test finding 04/27/2017 Levetiracetam (Keppra) 46.6 g/mL 19 Trileptal (Oxcarbazepine) 37 g/mL 3 - 35 20 Urine Culture And 04/27/2017 Urine Culture SEE RESULT BELOW 21 Sensitivities Laboratory test finding 04/27/2017 Magnesium 2.1 mg/dL 1.9-2.7 Creatine Kinase(CK) 51 U/L 10-223 Alcohol < 10 mg/dL <10 Urinalysis Profile 04/27/2017 Urine Color Yellow Urine Appearance Cloudy Urine Specific Deep Gap 1.018 1.010-1.030 Urine pH 7.0 5-9 Urine Urobilinogen Negative Negative Urine Ketones Negative Negative Urine Protein Negative Negative Urine Leukocytes Trace Negative Urine Blood Negative Negative * * Negative 22 Urine Nitrite Negative Negative Urine Bilirubin Negative Negative Urine Glucose Negative Negative Urine White Blood Cell Trace(0-5/hpf) Absent Urine Red Blood Cell Trace(0-2/hpf) Absent Urine Bacteria Absent Absent Urine Squamous Epithelial Cell Present Absent Urine Amorphous Crystals Present Absent Inr/Protime 04/27/2017 Inr 0.93 0.89-1.11 Laboratory test 04/27/2017 Lactic Acid 0.6 mmol/L 0.5-2.0 23 finding Urine Drug SCR ED 04/27/2017 Amphetamine Ur Screen None Detected None Detect & [facility] Barbiturates Urine Screen None Detected None Detect Benzodiazepine Urine Screen Presumptive Posi <SEE NOTE> None Detect 24 Urine Cannabinoids Screen None Detected None Detect Urine Cocaine Screen None Detected None Detect Urine Opiates Screen Presumptive Posi <SEE NOTE> None Detect 25 Urine Phencyclidine Screen None Detected None Detect 26 CBC Auto Diff 04/27/2017 White Blood Count 6.5 10^3/uL 3.5-10.8 Red Blood Count 4.16 10^6/uL 4.0-5.4 Hemoglobin 11.7 g/dL Low 12.0-16.0 Hematocrit 36 % 35-47 Mean Corpuscular Volume 86 fL 80-97 Mean Corpuscular Hemoglobin 28 pg 27-31 Mean Corpuscular HGB Conc 33 g/dL 31-36 Red Cell Distribution Width 14 % 10.5-15 Platelet Count 254 10^3/uL 150-450 Mean Platelet Volume 8 um3 7.4-10.4 Abs Neutrophils 3.2 10^3/uL 1.5-7.7 Abs Lymphocytes 2.1 10^3/uL 1.0-4.8 Abs Monocytes 0.6 10^3/uL 0-0.8 Abs Eosinophils 0.3 10^3/uL 0-0.6 Abs Basophils 0.3 10^3/uL High 0-0.2 Abs Nucleated RBC 0.01 10^3/uL Granulocyte % 48.8 % 38-83 Lymphocyte % 32.7 % 25-47 Monocyte % 9.5 % High 1-9 Eosinophil % 5.2 % 0-6 Basophil % 3.8 % High 0-2 Nucleated Red Blood Cells % 0.1 Laboratory test finding 04/27/2017 Partial Thrombo Time 31.1 seconds 26.0 -36.3 PTT Comp Metabolic Panel 04/27/2017 Sodium 135 mmol/L 133-145 Potassium 3.6 mmol/L 3.5-5.0 Chloride 104 mmol/L 101-111 Co2 Carbon Dioxide 25 mmol/L 22-32 Anion Gap 6 mmol/L 2-11 Glucose 88 mg/dL 70-100 Blood Urea Nitrogen 10 mg/dL 6-24 Creatinine 0.58 mg/dL 0.51-0.95 BUN/Creatinine Ratio 17.2 8-20 Calcium 9.2 mg/dL 8.6-10.3 Total Protein 6.3 g/dL Low 6.4-8.9 Albumin 4.3 g/dL 3.2-5.2 Globulin 2.0 g/dL 2-4 Albumin/Globulin Ratio 2.2 1-3 Total Bilirubin 0.20 mg/dL 0.2-1.0 Alkaline Phosphatase 45 U/L 34-104 Alt 12 U/L 7-52 Ast 19 U/L 13-39 Egfr Non- 118.3 >60 Egfr 152.1 >60 27 Comp Metabolic Panel 04/21/2017 Sodium 137 mmol/L 133-145 Potassium 3.3 mmol/L Low 3.5-5.0 Chloride 104 mmol/L 101-111 Co2 Carbon Dioxide 25 mmol/L 22-32 Anion Gap 8 mmol/L 2-11 Glucose 87 mg/dL 70-100 Blood Urea Nitrogen 12 mg/dL 6-24 Creatinine 0.68 mg/dL 0.51-0.95 BUN/Creatinine Ratio 17.6 8-20 Calcium 9.6 mg/dL 8.6-10.3 Total Protein 6.7 g/dL 6.4-8.9 Albumin 4.5 g/dL 3.2-5.2 Globulin 2.2 g/dL 2-4 Albumin/Globulin Ratio 2.0 1-3 Total Bilirubin 0.30 mg/dL 0.2-1.0 Alkaline Phosphatase 46 U/L 34-104 Alt 10 U/L 7-52 Ast 17 U/L 13-39 Egfr Non- 98.5 >60 Egfr 126.6 >60 28 Laboratory test finding 04/21/2017 Magnesium 2.2 mg/dL 1.9-2.7 Creatine Kinase(CK) 66 U/L 10-223 C Reactive Protein 1.60 mg/L < 5.00 29 HCG < 0.60 mIU/mL 30 CBC Auto Diff 04/21/2017 White Blood Count 8.3 10^3/uL 3.5-10.8 Red Blood Count 4.34 10^6/uL 4.0-5.4 Hemoglobin 12.2 g/dL 12.0-16.0 Hematocrit 37 % 35-47 Mean Corpuscular Volume 85 fL 80-97 Mean Corpuscular Hemoglobin 28 pg 27-31 Mean Corpuscular HGB Conc 33 g/dL 31-36 Red Cell Distribution Width 14 % 10.5-15 Platelet Count 273 10^3/uL 150-450 Mean Platelet Volume 8 um3 7.4-10.4 Abs Neutrophils 5.3 10^3/uL 1.5-7.7 Abs Lymphocytes 2.2 10^3/uL 1.0-4.8 Abs Monocytes 0.5 10^3/uL 0-0.8 Abs Eosinophils 0.4 10^3/uL 0-0.6 Abs Basophils 0 10^3/uL 0-0.2 Abs Nucleated RBC 0 10^3/uL Granulocyte % 63.9 % 38-83 Lymphocyte % 25.9 % 25-47 Monocyte % 5.7 % 1-9 Eosinophil % 4.5 % 0-6 Basophil % 0 % 0-2 Nucleated Red Blood Cells % 0 Laboratory test finding 04/21/2017 Lactic Acid 1.0 mmol/L 0.5-2.0 31 Levetiracetam (Keppra) 35.0 g/mL 32 Trileptal (Oxcarbazepine) 28 g/mL 3 - 35 33 Urinalysis Profile 04/21/2017 Urine Color Yellow Urine Appearance Cloudy Urine Specific Deep Gap 1.032 High 1.010-1.030 Urine pH 5.0 5-9 Urine Urobilinogen Negative Negative Urine Ketones 1+ Negative Urine Protein 1+(30 mg/dL) Negative Urine Leukocytes Negative Negative Urine Blood Negative Negative Urine Nitrite Negative Negative Urine Bilirubin Negative Negative Urine Glucose Negative Negative Urine White Blood Cell Trace(0-5/hpf) Absent Urine Red Blood Cell Trace(0-2/hpf) Absent Urine Bacteria Absent Absent Urine Squamous Epithelial Cell Present Absent Laboratory test finding 03/19/2017 Clotest SEE RESULT BELOW 34 Laboratory test finding 11/23/2016 Trileptal 11 g/mL 3 - 35 35 (Oxcarbazepine) Levetiracetam (Keppra) 63.6 g/mL 36 Laboratory test finding 11/24/2015 Levetiracetam (Keppra) 21.7 g/mL 37 Urinalysis Profile 07/14/2015 Urine Color Yellow Urine Appearance Cloudy Urine Specific Deep Gap 1.017 1.010-1.030 Urine pH 6.0 5-9 Urine Urobilinogen Negative Negative Urine Ketones Negative Negative Urine Protein Negative Negative Urine Leukocytes 3+ Negative Urine Blood 2+ Negative Urine Nitrite Negative Negative Urine Bilirubin Negative Negative Urine Glucose Negative Negative Urine White Blood Cell 3+(>20/hpf) Absent Urine Red Blood Cell 3+(>10/hpf) Absent Urine Bacteria 1+ Absent Urine Squamous Epithelial Cell Present Absent Laboratory test 07/14/2015 Urine Culture And SEE RESULT BELOW 38 finding Sensitivities Laboratory test 07/10/2015 Lactic Acid 1.4 mmol/L 0.5-2.2 finding Laboratory test 07/10/2015 C Reactive Protein 106.54 mg/L High < 5.00 39 finding Inr/Protime 07/10/2015 Inr 0.83 0.78-1.07 Laboratory test 07/10/2015 Partial Thrombo Time 28.1 seconds 26.0-36.3 finding PTT Urinalysis Profile 07/10/2015 Urine Color Yellow Urine Appearance Cloudy Urine Specific Deep Gap 1.017 1.010-1.030 Urine pH 5.0 5-9 Urine Urobilinogen Positive Negative Urine Ketones Negative Negative Urine Protein 1+(30 mg/dL) Negative Urine Leukocytes 3+ Negative Urine Blood Negative Negative Urine Nitrite Negative Negative Urine Bilirubin Negative Negative Urine Glucose Negative Negative Urine White Blood Cell 3+(>20/hpf) Absent Urine Red Blood Cell 3+(>10/hpf) Absent Urine Bacteria Absent Absent Urine Squamous Epithelial Cell Present Absent Laboratory test finding 07/10/2015 Urine Culture And SEE RESULT BELOW 40 Sensitivities Blood Culture SEE RESULT BELOW 41 Comp Metabolic Panel 07/10/2015 Sodium 138 mmol/L 133-145 Potassium 2.9 mmol/L Low 3.5-5.0 Chloride 108 mmol/L 101-111 Co2 Carbon Dioxide 23 mmol/L 22-32 Anion Gap 7 mmol/L 2-11 Glucose 98 mg/dL 70-100 Blood Urea Nitrogen 5 mg/dL Low 6-24 Creatinine 0.47 mg/dL Low 0.51-0.95 BUN/Creatinine Ratio 10.6 8-20 Calcium 8.4 mg/dL Low 8.6-10.3 Total Protein 5.2 g/dL Low 6.4-8.9 Albumin 2.9 g/dL Low 3.2-5.2 Globulin 2.3 g/dL 2-4 Albumin/Globulin Ratio 1.3 1-3 Total Bilirubin 0.20 mg/dL 0.2-1.0 Alkaline Phosphatase 72 U/L 34-104 Alt 12 U/L 7-52 Ast 12 U/L Low 13-39 Egfr Non- 152.6 >60 Egfr 196.3 >60 42 CBC Auto Diff 07/10/2015 White Blood Count 13.4 10^3/uL High 4.8-10.8 Red Blood Count 3.16 10^6/uL Low 4.0-5.4 Hemoglobin 8.7 g/dL Low 12.0-16.0 Hematocrit 27 % Low 35-47 Mean Corpuscular Volume 84 fL 80-97 Mean Corpuscular Hemoglobin 28 pg 27-31 Mean Corpuscular HGB Conc 33 g/dL 31-36 Red Cell Distribution Width 19 % High 10.5-15 Platelet Count 421 10^3/uL 150-450 Mean Platelet Volume 7 um3 Low 7.4-10.4 Abs Neutrophils 8.8 10^3/uL High 1.5-7.7 Abs Lymphocytes 3.4 10^3/uL 1.0-4.8 Abs Monocytes 0.8 10^3/uL 0-0.8 Abs Eosinophils 0.2 10^3/uL 0-0.6 Abs Basophils 0.1 10^3/uL 0-0.2 Abs Nucleated RBC 0.05 10^3/uL Granulocyte % 65.9 % 38-83 Lymphocyte % 25.2 % 25-47 Monocyte % 6.3 % 1-9 Eosinophil % 1.7 % 0-6 Basophil % 0.9 % 0-2 Nucleated Red Blood Cells % 0.4 CBC Auto Diff 06/05/2015 White Blood Count 13.4 10^3/uL High 4.8-10.8 Red Blood Count 3.53 10^6/uL Low 4.0-5.4 Hemoglobin 9.0 g/dL Low 12.0-16.0 Hematocrit 29 % Low 35-47 Mean Corpuscular Volume 81 fL 80-97 Mean Corpuscular Hemoglobin 25 pg Low 27-31 Mean Corpuscular HGB Conc 32 g/dL 31-36 Red Cell Distribution Width 14 % 10.5-15 Platelet Count 298 10^3/uL 150-450 Mean Platelet Volume 7 um3 Low 7.4-10.4 Abs Neutrophils 9.8 10^3/uL High 1.5-7.7 Abs Lymphocytes 2.6 10^3/uL 1.0-4.8 Abs Monocytes 0.8 10^3/uL 0-0.8 Abs Eosinophils 0.1 10^3/uL 0-0.6 Abs Basophils 0 10^3/uL 0-0.2 Abs Nucleated RBC 0 10^3/uL Granulocyte % 73.5 % 38-83 Lymphocyte % 19.1 % Low 25-47 Monocyte % 6.3 % 1-9 Eosinophil % 1.0 % 0-6 Basophil % 0.1 % 0-2 Nucleated Red Blood Cells % 0 Laboratory test finding 06/05/2015 Lactic Acid 0.9 mmol/L 0.5-2.2 Inr/Protime 06/05/2015 Inr 0.86 0.78-1.07 Laboratory test finding 06/05/2015 Partial Thrombo Time 28.3 seconds 26.0 -36.3 PTT Comp Metabolic Panel 06/05/2015 Sodium 134 mmol/L 133-145 Potassium 3.1 mmol/L Low 3.5-5.0 Chloride 106 mmol/L 101-111 Co2 Carbon Dioxide 21 mmol/L Low 22-32 Anion Gap 7 mmol/L 2-11 Glucose 103 mg/dL High 70-100 Blood Urea Nitrogen 6 mg/dL 6-24 Creatinine 0.37 mg/dL Low 0.51-0.95 BUN/Creatinine Ratio 16.2 8-20 Calcium 8.4 mg/dL Low 8.6-10.3 Total Protein 5.5 g/dL Low 6.4-8.9 Albumin 3.2 g/dL 3.2-5.2 Globulin 2.3 g/dL 2-4 Albumin/Globulin Ratio 1.4 1-3 Total Bilirubin 0.20 mg/dL 0.2-1.0 Alkaline Phosphatase 75 U/L 34-104 Alt 6 U/L Low 7-52 Ast 13 U/L 13-39 Egfr Non- 201.1 >60 Egfr 258.7 >60 43 Laboratory test finding 06/05/2015 Creatine Kinase(CK) 72 U/L 10-223 Troponin-I (TnI) 0.00 ng/mL <0.03 44 B-Type Natriuretic Peptide BNP 104 pg/mL High 45 Laboratory test finding 01/12/2015 Hemoglobin A1c 4.9 % Less than 6.0 46 , 47 Levetiracetam 16.8 g/mL 46, 48 Oxcarbazepine 19 g/mL 3 - 35 46, 49 Syphilis Screen 01/12/2015 Syphilis IgG TNP Nonreactive 46 RPR Nonreactive Nonreactive 46 RPR Titer TNP 46 Pediatric/Maternal YES 46 Laboratory test 01/12/2015 Hepatitis B Surface Nonreactive Nonreactive 46, 50 finding Antigen HIV 1/2 AB Evaluation 01/12/2015 HIV 1 2 Antibody Nonreactive Nonreactive 46, 51 CBC No Diff 01/12/2015 White Blood Count 8.5 10^3/uL 4.8-10.8 46 Red Blood Count 4.10 10^6/uL 4.0-5.4 46 Hemoglobin 12.6 g/dL 12.0-16.0 46 Hematocrit 37 % 35-47 46 Mean Corpuscular Volume 90 fL 80-97 46 Mean Corpuscular Hemoglobin 31 pg 27-31 46 Mean Corpuscular HGB Conc 34 g/dL 31-36 46 Red Cell Distribution Width 15 % 10.5-15 46 Platelet Count 245 10^3/uL 150-450 46 Mean Platelet Volume 9 um3 7.4-10.4 46 Laboratory test finding 01/12/2015 Rubella Screen Equivocal IU/mL Immune 46, 52 Type & Screen 01/12/2015 Patient Blood Type O Positive 46 Antibody Screen NEGATIVE 46 Laboratory test finding 04/03/2014 Levetiracetam 8.5 g/mL 53, 54 Oxcarbazepine 23 g/mL 3 - 35 53, 55 Comp Metabolic Panel 04/03/2014 Sodium 138 mmol/L 133-145 53 Potassium 4.0 mmol/L 3.7-5.6 53 Chloride 106 mmol/L 101-111 53 Co2 Carbon Dioxide 27 mmol/L 22-32 53 Anion Gap 5 mmol/L 2-11 53 Glucose 85 mg/dL 70-100 53 Blood Urea Nitrogen 11 mg/dL 6-24 53 Creatinine 0.55 mg/dL 0.51-0.95 53 BUN/Creatinine Ratio 20.0 8-20 53 Calcium 9.3 mg/dL 8.6-10.3 53 Total Protein 6.1 g/dL Low 6.4-8.9 53 Albumin 4.1 g/dL 3.2-5.2 53 Globulin 2.0 g/dL 2-4 53 Albumin/Globulin Ratio 2.1 1-3 53 Total Bilirubin 0.20 mg/dL 0.2-1.0 53 Alkaline Phosphatase 66 U/L 34-104 53 Alt 9 U/L 7-52 53 Ast 13 U/L 13-39 53 Egfr Non- 128.1 >60 53 Egfr 164.7 >60 53, 56 Laboratory test finding 01/28/2014 Inr 0.96 0.85-1.06 Activated Partial Thrombo Time 32.4 seconds 24.0-36.1 Oncology CBC Auto Diff 01/28/2014 White Blood Count 4.9 10^3/uL 4.8-10.8 Red Blood Count 4.32 10^6/uL 4.0-5.4 Hemoglobin 10.3 g/dL Low 12.0-16.0 Hematocrit 33 % Low 35-47 Mean Corpuscular Volume 77 fL Low 80-97 Mean Corpuscular Hemoglobin 24 pg Low 27-31 Mean Corpuscular HGB Conc 31 g/dL 31-36 Red Cell Distribution Width 16 % High 10.5-15 Platelet Count 274 10^3/uL 150-450 Mean Platelet Volume 7 um3 Low 7.4-10.4 Abs Neutrophils 2.4 10^3/uL 1.5-7.7 Abs Lymphocytes 1.7 10^3/uL 1.0-4.8 Abs Monocytes 0.5 10^3/uL 0-0.8 Abs Eosinophils 0.3 10^3/uL 0-0.6 Abs Basophils 0 10^3/uL 0-0.2 Granulocyte % 49.3 % 38-83 Lymphocyte % 35.4 % 25-47 Monocyte % 9.2 % High 1-9 Eosinophil % 5.4 % 0-6 Basophil % 0.7 % 0-2 Iron & Iron Binding Capacity 01/28/2014 Iron 32 g/dL Low 50-212 Unsaturated Iron Binding 387 g/dL Total Iron Binding Capacity 419 g/dL 250-450 % Iron Saturation 8 % Low 15-55 Laboratory test finding 01/28/2014 Ferritin < 10.0 ng/mL Low 11-307 Vitamin B12 319 pg/mL 180-914 57 Laboratory test finding 12/01/2013 Levetiracetam 30.3 g/mL 58 Oxcarbazepine 29 g/mL 3 - 35 59 Laboratory test finding 10/20/2013 Serum Negative Negative 60 Blood Culture (SEE NOTE) 61 CBC Auto Diff 10/20/2013 White Blood Count 4.9 10^3/uL 4.8-10.8 Red Blood Count 4.38 10^6/uL 4.0-5.4 Hemoglobin 11.3 g/dL Low 12.0-16.0 Hematocrit 33 % Low 35-47 Mean Corpuscular Volume 76 fL Low 80-97 Mean Corpuscular Hemoglobin 26 pg Low 27-31 Mean Corpuscular HGB Conc 34 g/dL 31-36 Red Cell Distribution Width 15 % 10.5-15 Platelet Count 300 10^3/uL 150-450 Mean Platelet Volume 8 um3 7.4-10.4 Abs Neutrophils 3.5 10^3/uL 1.5-7.7 Abs Lymphocytes 0.7 10^3/uL Low 1.0-4.8 Abs Monocytes 0.7 10^3/uL 0-0.8 Abs Eosinophils 0 10^3/uL 0-0.6 Abs Basophils 0 10^3/uL 0-0.2 Abs Nucleated RBC 0.01 10^3/uL Granulocyte % 71.2 % 38-83 Lymphocyte % 14.2 % Low 25-47 Monocyte % 13.6 % High 1-9 Eosinophil % 0.5 % 0-6 Basophil % 0.5 % 0-2 Nucleated Red Blood Cells % 0.1 Inr/Protime 10/20/2013 Inr 1.09 High 0.85-1.06 62 Laboratory test finding 10/20/2013 Activated Partial 31.6 seconds 24.0- 36.1 63 Thrombo Time Comp Metabolic Panel 10/20/2013 Sodium 134 mmol/L 133-145 Potassium 3.3 mmol/L Low 3.5-5.0 Chloride 102 mmol/L 101-111 Co2 Carbon Dioxide 23.0 mmol/L 22-32 Anion Gap 9.0 mmol/L 2-11 Glucose 98 mg/dL 70-100 Blood Urea Nitrogen 9 mg/dL 6-24 Creatinine 0.70 mg/dL 0.50-1.40 BUN/Creatinine Ratio 12.9 8-20 Calcium 9.1 mg/dL 8.1-9.9 Total Protein 7.1 g/dL 6.2-8.1 Albumin 4.5 g/dL 3.6-5.4 Globulin 2.6 g/dL 2-4 Albumin/Globulin Ratio 1.7 1-3 Total Bilirubin 0.4 mg/dL 0.4-1.5 Alkaline Phosphatase 63 U/L 30-110 Alt 17 U/L 14-54 Ast 21 U/L 12-42 Egfr Non- 97.0 >60 Egfr 124.7 >60 64 Laboratory test finding 10/20/2013 Lactic Acid 1.0 mmol/L 0.5-1.6 HIV 1 2 AB Self Referred Nonreactive Nonreactive 65 Blood Culture (SEE NOTE) 66 Laboratory test finding 09/18/2013 Levetiracetam 49.6 g/mL 67 CBC Auto Diff 2013 White Blood Count 6.1 10^3/uL 4.8-10.8 Red Blood Count 4.59 10^6/uL 4.0-5.4 Hemoglobin 11.5 g/dL Low 12.0-16.0 Hematocrit 35 % 35-47 Mean Corpuscular Volume 77 fL Low 80-97 Mean Corpuscular Hemoglobin 25 pg Low 27-31 Mean Corpuscular HGB Conc 33 g/dL 31-36 Red Cell Distribution Width 16 % High 10.5-15 Platelet Count 338 10^3/uL 150-450 Mean Platelet Volume 8 um3 7.4-10.4 Abs Neutrophils 2.7 10^3/uL 1.5-7.7 Abs Lymphocytes 2.2 10^3/uL 1.0-4.8 Abs Monocytes 0.7 10^3/uL 0-0.8 Abs Eosinophils 0.4 10^3/uL 0-0.6 Abs Basophils 0.1 10^3/uL 0-0.2 Abs Nucleated RBC 0 10^3/uL Granulocyte % 44.0 % 38-83 Lymphocyte % 35.8 % 25-47 Monocyte % 11.5 % High 1-9 Eosinophil % 7.3 % High 0-6 Basophil % 1.4 % 0-2 Nucleated Red Blood Cells % 0 Inr/Protime 2013 Inr 0.97 0.87-0.97 Comp Metabolic Panel 2013 Sodium 137 mmol/L 133-145 Potassium 3.1 mmol/L Low 3.5-5.0 Chloride 104 mmol/L 101-111 Co2 Carbon Dioxide 20.0 mmol/L Low 22-32 Anion Gap 13.0 mmol/L High 2-11 Glucose 157 mg/dL High 70-100 Blood Urea Nitrogen 10 mg/dL 6-24 Creatinine 0.70 mg/dL 0.50-1.40 BUN/Creatinine Ratio 14.3 8-20 Calcium 9.5 mg/dL 8.1-9.9 Total Protein 7.7 g/dL 6.2-8.1 Albumin 4.5 g/dL 3.6-5.4 Globulin 3.2 g/dL 2-4 Albumin/Globulin Ratio 1.4 1-3 Total Bilirubin 0.6 mg/dL 0.4-1.5 Alkaline Phosphatase 89 U/L 30-110 Alt 26 U/L 14-54 Ast 42 U/L 12-42 Egfr Non- 97.0 >60 Egfr 124.7 >60 68 Laboratory test finding 08/12/2013 Serum Negative Negative 69 CBC Auto Diff 08/12/2013 White Blood Count 6.4 10^3/uL 4.8-10.8 Red Blood Count 4.72 10^6/uL 4.0-5.4 Hemoglobin 12.0 g/dL 12.0-16.0 Hematocrit 37 % 35-47 Mean Corpuscular Volume 78 fL Low 80-97 Mean Corpuscular Hemoglobin 25 pg Low 27-31 Mean Corpuscular HGB Conc 33 g/dL 31-36 Red Cell Distribution Width 18 % High 10.5-15 Platelet Count 242 10^3/uL 150-450 Mean Platelet Volume 8 um3 7.4-10.4 Abs Neutrophils 2.8 10^3/uL 1.5-7.7 Abs Lymphocytes 2.2 10^3/uL 1.0-4.8 Abs Monocytes 0.9 10^3/uL High 0-0.8 Abs Eosinophils 0.5 10^3/uL 0-0.6 Abs Basophils 0.1 10^3/uL 0-0.2 Abs Nucleated RBC 0.01 10^3/uL Granulocyte % 43.0 % 38-83 Lymphocyte % 34.2 % 25-47 Monocyte % 14.5 % High 1-9 Eosinophil % 7.5 % High 0-6 Basophil % 0.8 % 0-2 Nucleated Red Blood Cells % 0.1 Cell Morphology 08/12/2013 Microcytosis 1+ Comp Metabolic Panel 08/12/2013 Sodium 139 mmol/L 133-145 Potassium 4.1 mmol/L 3.5-5.0 Chloride 108 mmol/L 101-111 Co2 Carbon Dioxide 26.0 mmol/L 22-32 Anion Gap 5.0 mmol/L 2-11 Glucose 94 mg/dL 70-100 Blood Urea Nitrogen 12 mg/dL 6-24 Creatinine 0.90 mg/dL 0.50-1.40 BUN/Creatinine Ratio 13.3 8-20 Calcium 9.5 mg/dL 8.1-9.9 Total Protein 7.4 g/dL 6.2-8.1 Albumin 4.2 g/dL 3.6-5.4 Globulin 3.2 g/dL 2-4 Albumin/Globulin Ratio 1.3 1-3 Total Bilirubin 0.4 mg/dL 0.4-1.5 Alkaline Phosphatase 54 U/L 30-110 Alt 12 U/L Low 14-54 Ast 20 U/L 12-42 Egfr Non- 73.0 >60 Egfr 93.9 >60 70 Laboratory test finding 08/12/2013 TSH (Thyroid Stimulating 1.87 miu/mL 0.34-5.60 Horm) C Reactive Protein < 0.5 mg/dL Less than 0.5 Creatine Kinase 51 U/L 0-200 Levetiracetam 13.5 g/mL 71 Urinalysis 08/12/2013 Urine Color Yellow Urine Appearance Turbid Urine Specific Deep Gap 1.024 1.010-1.030 Urine Esterase Negative Negative Urine Nitrate Negative Negative Urine Urobilinogen Negative E.U./dL Negative Urine Protein Negative mg/dL Negative Urine pH 6.5 5-9 Urine Blood Negative Negative Urine Ketones Negative mg/dL Negative Urine Bilirubin Negative Negative Urine Glucose Negative mg/dL Negative Urinalysis 08/06/2013 Urine Color Yellow Urine Appearance Clear Urine Specific Deep Gap 1.016 1.010-1.030 Urine Esterase Negative Negative Urine Nitrate Negative Negative Urine Urobilinogen Negative E.U./dL Negative Urine Protein Negative mg/dL Negative Urine pH 8.0 5-9 Urine Blood Negative Negative Urine Ketones Negative mg/dL Negative Urine Bilirubin Negative Negative Urine Glucose Negative mg/dL Negative Laboratory test finding 08/06/2013 Levetiracetam 18.2 g/mL 72 Oxcarbazepine 6 g/mL 3 - 35 73 Oncology CBC Auto Diff 07/15/2013 White Blood Count 6.1 10^3/uL 4.8-10.8 Red Blood Count 4.94 10^6/uL 4.0-5.4 Hemoglobin 12.1 g/dL 12.0-16.0 Hematocrit 38 % 35-47 Mean Corpuscular Volume 78 fL Low 80-97 Mean Corpuscular Hemoglobin 25 pg Low 27-31 Mean Corpuscular HGB Conc 32 g/dL 31-36 Red Cell Distribution Width 19 % High 10.5-15 Platelet Count 290 10^3/uL 150-450 Mean Platelet Volume 7 um3 Low 7.4-10.4 Abs Neutrophils 2.6 10^3/uL 1.5-7.7 Abs Lymphocytes 2.5 10^3/uL 1.0-4.8 Abs Monocytes 0.7 10^3/uL 0-0.8 Abs Eosinophils 0.2 10^3/uL 0-0.6 Abs Basophils 0.1 10^3/uL 0-0.2 Granulocyte % 43.9 % 38-83 Lymphocyte % 40.2 % 25-47 Monocyte % 11.1 % High 1-9 Eosinophil % 3.9 % 0-6 Basophil % 0.9 % 0-2 Laboratory test finding 07/15/2013 Cell Morphology 1+ 74 Manual Differential 06/07/2013 Neutrophil % 48 % 38-83 Lymphocytes % 41 % 25-47 Monocytes % 9 % 0-13 Eosinophils % 2 % 0-6 Microcytosis 1+ Iron & Iron Binding Capacity 06/07/2013 Iron 94 g/dL 28-170 Unsaturated Iron Binding 335 g/dL Total Iron Binding Capacity 429 g/dL 250-450 % Iron Saturation 22 % 15-55 Laboratory test finding 06/07/2013 Ferritin < 10 ng/mL Low 11-307 Vitamin B12 508 pg/mL 180-914 Laboratory test finding 06/07/2013 Levetiracetam 25.5 g/mL 75 CBC Auto Diff 06/07/2013 White Blood Count 6.6 10^3/uL 4.8-10.8 Red Blood Count 4.92 10^6/uL 4.0-5.4 Hemoglobin 12.1 g/dL 12.0-16.0 Hematocrit 38 % 35-47 Mean Corpuscular Volume 78 fL Low 80-97 Mean Corpuscular Hemoglobin 25 pg Low 27-31 Mean Corpuscular HGB Conc 32 g/dL 31-36 Red Cell Distribution Width 17 % High 10.5-15 Platelet Count 267 10^3/uL 150-450 Mean Platelet Volume 8 um3 7.4-10.4 Abs Neutrophils 2.9 10^3/uL 1.5-7.7 Abs Lymphocytes 2.9 10^3/uL 1.0-4.8 Abs Monocytes 0.5 10^3/uL 0-0.8 Abs Eosinophils 0.3 10^3/uL 0-0.6 Abs Basophils 0 10^3/uL 0-0.2 Abs Nucleated RBC 0 10^3/uL 1 REFERENCE VALUE 12.0 - 46.0 ADDITIONAL INFORMATION This test was developed and its performance characteristics determined by [facility] in a manner consistent with CLIA requirements. This test has not been cleared or approved by the U.S. Food and Drug Administration. Test Performed by: [facility] - [address] [address] 2 ADDITIONAL INFORMATION This test was developed and its performance characteristics determined by [facility] in a manner consistent with CLIA requirements. This test has not been cleared or approved by the U.S. Food and Drug Administration. Test Performed by: [facility] - [address] [address] 3 SEE RESULT BELOW Name: SELENA DIANE : [address]: Jackson VALE Acct: [id number] Unit: [id number] AGE: 36 Location: LAB Re07/18/17 SEX: F Status: REG REF SPEC: [id number] TERRENCE: 07/18/[address]: Jackson Louis [facility] REQ: [id number] RECD: 07/18/17 STATUS: ANDERSON AMEZQUITA DR: Madhavi Mayorga MD PC _ SOURCE: URINE SPDESC: ORDERED: Urine Culture Procedure Result Reported Site Urine Culture Final 07/19/17- 1439 ML No Growth (<1,000 CFU/mL) * ML - MAIN LAB ([facility]) . END OF REPORT * ML=Testing performed at Main Lab DEPARTMENT OF PATHOLOGY, [address] [place] [address] Navneet Drake M.D. Director [facility] # [id number] 4 Because ethnic data is not always readily available, this report includes an eGFR for both -Americans and non- Americans. The National Kidney Disease Education Program (NKDEP) does not endorse the use of the MDRD equation for patients that are not between the ages of 18 and 70, are , have extremes of body size, muscle mass, or nutritional status, or are non- or non-. According to the National Kidney Foundation, irrespective of diagnosis, the stage of the disease is based on the level of kidney function: Stage Description GFR(mL/min/1.73 m(2)) 1 Kidney damage with normal or decreased GFR 90 2 Kidney damage with mild decrease in GFR 60-89 3 Moderate decrease in GFR 30-59 4 Severe decrease in GFR 15-29 5 Kidney failure <15 (or dialysis) 5 [facility] Severe Sepsis and Septic Shock Management Bundle Measure requires all lactic acids initially measuring >2.0 mmol/L be repeated. 6 Because ethnic data is not always readily available, this report includes an eGFR for both -Americans and non- Americans. The National Kidney Disease Education Program (NKDEP) does not endorse the use of the MDRD equation for patients that are not between the ages of 18 and 70, are , have extremes of body size, muscle mass, or nutritional status, or are non- or non-. According to the National Kidney Foundation, irrespective of diagnosis, the stage of the disease is based on the level of kidney function: Stage Description GFR(mL/min/1.73 m(2)) 1 Kidney damage with normal or decreased GFR 90 2 Kidney damage with mild decrease in GFR 60-89 3 Moderate decrease in GFR 30-59 4 Severe decrease in GFR 15-29 5 Kidney failure <15 (or dialysis) 7 Because ethnic data is not always readily available, this report includes an eGFR for both -Americans and non- Americans. The National Kidney Disease Education Program (NKDEP) does not endorse the use of the MDRD equation for patients that are not between the ages of 18 and 70, are , have extremes of body size, muscle mass, or nutritional status, or are non- or non-. According to the National Kidney Foundation, irrespective of diagnosis, the stage of the disease is based on the level of kidney function: Stage Description GFR(mL/min/1.73 m(2)) 1 Kidney damage with normal or decreased GFR 90 2 Kidney damage with mild decrease in GFR 60-89 3 Moderate decrease in GFR 30-59 4 Severe decrease in GFR 15-29 5 Kidney failure <15 (or dialysis) 8 [facility] Severe Sepsis and Septic Shock Management Bundle Measure requires all lactic acids initially measuring >2.0 mmol/L be repeated. 9 Because ethnic data is not always readily available, this report includes an eGFR for both -Americans and non- Americans. The National Kidney Disease Education Program (NKDEP) does not endorse the use of the MDRD equation for patients that are not between the ages of 18 and 70, are , have extremes of body size, muscle mass, or nutritional status, or are non- or non-. According to the National Kidney Foundation, irrespective of diagnosis, the stage of the disease is based on the level of kidney function: Stage Description GFR(mL/min/1.73 m(2)) 1 Kidney damage with normal or decreased GFR 90 2 Kidney damage with mild decrease in GFR 60-89 3 Moderate decrease in GFR 30-59 4 Severe decrease in GFR 15-29 5 Kidney failure <15 (or dialysis) 10 REFERENCE VALUE 12.0 - 46.0 ADDITIONAL INFORMATION This test was developed and its performance characteristics determined by [facility] in a manner consistent with CLIA requirements. This test has not been cleared or approved by the U.S. Food and Drug Administration. Test Performed by: [facility] - [address] [address] 11 *Ascorbic acid is present which may interfere with detection of blood. 12 Because ethnic data is not always readily available, this report includes an eGFR for both -Americans and non- Americans. The National Kidney Disease Education Program (NKDEP) does not endorse the use of the MDRD equation for patients that are not between the ages of 18 and 70, are , have extremes of body size, muscle mass, or nutritional status, or are non- or non-. According to the National Kidney Foundation, irrespective of diagnosis, the stage of the disease is based on the level of kidney function: Stage Description GFR(mL/min/1.73 m(2)) 1 Kidney damage with normal or decreased GFR 90 2 Kidney damage with mild decrease in GFR 60-89 3 Moderate decrease in GFR 30-59 4 Severe decrease in GFR 15-29 5 Kidney failure <15 (or dialysis) 13 SEE RESULT BELOW Name: SELENA DIANE : [address]: Jackie Snow MD Acct: [id number] Unit: [id number] AGE: 36 Location: ED Re05/05/17 SEX: F Status: DEP ER SPEC: [id number] TERRENCE: 05/05/[address] [facility] [address]: Jackie Snow MD REQ: [id number] RECD: 05/05/17 STATUS: ANDERSON AMEZQUITA DR: Leatha Coles MD _ SOURCE: URINE [facility]: ORDERED: Urine Culture Procedure Result Reported Site Urine Culture Final 05/06/17- 1626 ML No growth of clinically significant organisms * ML - [facility] LAB ([facility]) . END OF REPORT * ML=Testing performed at Main Lab DEPARTMENT OF PATHOLOGY, [address] [place] [address] Navneet Drake M.D. Director [facility] # [id number] REFERENCE VALUE 12.0 - 46.0 ADDITIONAL INFORMATION This test was developed and its performance characteristics determined by [facility] in a manner consistent with CLIA requirements. This test has not been cleared or approved by the U.S. Food and Drug Administration. Test Performed by: [facility] - [id number] [place] [address] Severe Sepsis and Septic Shock Management Bundle Measure requires all lactic acids initially measuring >2.0 mmol/L be repeated. 16 Because ethnic data is not always readily available, this report includes an eGFR for both -Americans and non- Americans. The National Kidney Disease Education Program (NKDEP) does not endorse the use of the MDRD equation for patients that are not between the ages of 18 and 70, are , have extremes of body size, muscle mass, or nutritional status, or are non- or non-. According to the National Kidney Foundation, irrespective of diagnosis, the stage of the disease is based on the level of kidney function: Stage Description GFR(mL/min/1.73 m(2)) 1 Kidney damage with normal or decreased GFR 90 2 Kidney damage with mild decrease in GFR 60-89 3 Moderate decrease in GFR 30-59 4 Severe decrease in GFR 15-29 5 Kidney failure <15 (or dialysis) 17 REFERENCE VALUE 12.0 - 46.0 ADDITIONAL INFORMATION This test was developed and its performance characteristics determined by [facility] in a manner consistent with CLIA requirements. This test has not been cleared or approved by the U.S. Food and Drug Administration. Test Performed by: [facility] - [address] [address] 18 ADDITIONAL INFORMATION This test was developed and its performance characteristics determined by [facility] in a manner consistent with CLIA requirements. This test has not been cleared or approved by the U.S. Food and Drug Administration. Test Performed by: [facility] - [address] [address] 19 REFERENCE VALUE 12.0 - 46.0 ADDITIONAL INFORMATION This test was developed and its performance characteristics determined by [facility] in a manner consistent with CLIA requirements. This test has not been cleared or approved by the U.S. Food and Drug Administration. Test Performed by: [facility] - [address] [address] 20 ADDITIONAL INFORMATION This test was developed and its performance characteristics determined by [facility] in a manner consistent with CLIA requirements. This test has not been cleared or approved by the U.S. Food and Drug Administration. Test Performed by: [facility] - [address] [address] 21 SEE RESULT BELOW Name: SELENA DIANE : [address]: Flory Lei MD Acct: [id number] Unit: [id number] AGE: 36 Location: ED Re04/27/17 SEX: F Status: DEP ER SPEC: [id number] TERRENCE: 04/27/[address]: Flory Lei MD REQ: [id number] RECD: 04/27/17 STATUS: COMP OTHR DR: Leatha Coles MD _ SOURCE: URINE SPDESC: ORDERED: Urine Culture Procedure Result Reported Site Urine Culture Final 04/30/17- 820 ML Organism 1 ESCHERICHIA COLI Helix Count 25-50,000 (Moderate) CFU/ML 1. ESCHERICHIA COLI M.I.C. RX --------- ------ Ampicillin >=32 R Cefazolin <=4 S Cefepime <=1 S Ceftriaxone <=1 S Ciprofloxacin <=0.25 S Gentamicin <=1 S Levofloxacin <=0.12 S Meropenem <=0.25 S Nitrofurantoin <=16 S Tetracycline <=1 S Pipercillin/Tazobactam <=4 S Trimethoprim/Sulfamethoxazole <=20 S Amoxicillin/Clavulanic Acid 8 S Aztreonam <=1 S Contact the Microbiology Department for any additional antibiotic reporting. * ML - MAIN LAB ([facility]) . END OF REPORT * ML=Testing performed at Main Lab DEPARTMENT OF PATHOLOGY, [address] [place] [address] Navneet Drake M.D. Director [facility] # [id number] 22 *Ascorbic acid is present which may interfere with detection of blood. 23 [facility] Severe Sepsis and Septic Shock Management Bundle Measure requires all lactic acids initially measuring >2.0 mmol/L be repeated. 24 Presumptive Positive Presumptive positive results are unconfirmed. 25 Presumptive Positive Presumptive positive results are unconfirmed. 26 The urine specimen was tested at the listed cutoffs: Drug class test level (ng/mL) Amphetamines 500 Barbiturates 200 Benzodiazepine metabolites 200 Cocaine metabolites 150 Cannabinoids 50 Opiates 300 Pcp 25 Specimen was received without chain of custody. Results should be used for medical purposes only. 27 Because ethnic data is not always readily available, this report includes an eGFR for both -Americans and non- Americans. The National Kidney Disease Education Program (NKDEP) does not endorse the use of the MDRD equation for patients that are not between the ages of 18 and 70, are , have extremes of body size, muscle mass, or nutritional status, or are non- or non-. According to the National Kidney Foundation, irrespective of diagnosis, the stage of the disease is based on the level of kidney function: Stage Description GFR(mL/min/1.73 m(2)) 1 Kidney damage with normal or decreased GFR 90 2 Kidney damage with mild decrease in GFR 60-89 3 Moderate decrease in GFR 30-59 4 Severe decrease in GFR 15-29 5 Kidney failure <15 (or dialysis) 28 Because ethnic data is not always readily available, this report includes an eGFR for both -Americans and non- Americans. The National Kidney Disease Education Program (NKDEP) does not endorse the use of the MDRD equation for patients that are not between the ages of 18 and 70, are , have extremes of body size, muscle mass, or nutritional status, or are non- or non-. According to the National Kidney Foundation, irrespective of diagnosis, the stage of the disease is based on the level of kidney function: Stage Description GFR(mL/min/1.73 m(2)) 1 Kidney damage with normal or decreased GFR 90 2 Kidney damage with mild decrease in GFR 60-89 3 Moderate decrease in GFR 30-59 4 Severe decrease in GFR 15-29 5 Kidney failure <15 (or dialysis) 29 Acute inflammation: >10.00 30 <5.0 Negative 5.0 - 25.0 Indeterminate (Repeat testing recommended after 72 hours) >25.0 Positive Perimenopausal women can display HCG levels of up to 20 mIU/mL 31 [facility] Severe Sepsis and Septic Shock Management Bundle Measure requires all lactic acids initially measuring >2.0 mmol/L be repeated. 32 REFERENCE VALUE 12.0 - 46.0 ADDITIONAL INFORMATION This test was developed and its performance characteristics determined by [facility] in a manner consistent with CLIA requirements. This test has not been cleared or approved by the U.S. Food and Drug Administration. Test Performed by: [facility] - [facility] [address] [place] [address] 33 ADDITIONAL INFORMATION This test was developed and its performance characteristics determined by [facility] in a manner consistent with CLIA requirements. This test has not been cleared or approved by the U.S. Food and Drug Administration. Test Performed by: [facility] - [address] [address] 34 SEE RESULT BELOW Name: SELENA DIANE : [address]: Jae George MD Acct: [id number] Unit: [id number] AGE: 36 Location: ENDO Re03/19/17 SEX: F Status: REG REF SPEC: [id number] TERRENCE: 03/19/17-[address] [facility] [address]: Jae George MD REQ: [id number] RECD: 03/19/17 STATUS: ANDERSON AMEZQUITA DR: Leatha Mayorga MD PC _ SOURCE: GAS ANTRUM SPDESC: ORDERED: Clotest Procedure Result Reported Site Clotest Final 03/20/17- 714 ML Clotest Negative * ML - MAIN LAB ([facility]) . END OF REPORT * ML=Testing performed at Main Lab DEPARTMENT OF PATHOLOGY, [address] [place] [address] Navneet Drake M.D. Director [facility] # [id number] 35 ADDITIONAL INFORMATION This test was developed and its performance characteristics determined by [facility] in a manner consistent with CLIA requirements. This test has not been cleared or approved by the U.S. Food and Drug Administration. Test Performed by: [facility] - [address] [address] Livestock Caretaker: Matti Gould II, M.D., Ph.D. 36 REFERENCE VALUE 12.0 - 46.0 ADDITIONAL INFORMATION This test was developed and its performance characteristics determined by [facility] in a manner consistent with CLIA requirements. This test has not been cleared or approved by the U.S. Food and Drug Administration. Test Performed by: [facility] [place] [address] Livestock Caretaker: Matti Gould II, M.D., Ph.D. 37 REFERENCE VALUE 12.0 - 46.0 Test Performed by: [facility] [place] [address] Livestock Caretaker: Matti Gould II, M.D., Ph.D. 38 SEE RESULT BELOW Name: SELENA DIANE Shawna : [address]: Matti Romero MD Acct: [id number] Unit: [id number] AGE: 34 Location: ED Re07/14/15 SEX: F Status: DEP ER SPEC: [id number] TERRENCE: 07/14/15-[address]: Matti Romero MD REQ: [id number] RECD: 07/14/15 STATUS: [facility] DR: Madhavi Mayorga MD Lucy Butcher MD _ SOURCE: URINE [facility]: ORDERED: Urine Culture Procedure Result Verified Site Urine Culture Final 07/16/15- 0950 ML Organism 1 ESCHERICHIA COLI Helix Count >100,000 (Many) CFU/ML 1. ESCHERICHIA COLI M.I.C. RX --------- ------ Ampicillin <=2 S Cefazolin <=4 S Cefepime <=1 S Ceftriaxone <=1 S Ciprofloxacin 0.5 S Gentamicin <=1 S Levofloxacin 1 S Meropenem <=0.25 S Nitrofurantoin <=16 S Tetracycline <=1 S Pipercillin/Tazobactam <=4 S Trimethoprim/Sulfamethoxazole <=20 S Amoxicillin/Clavulanic Acid <=2 S Aztreonam <=1 S Contact the Microbiology Department for any additional antibiotic reporting. * ML - MAIN LAB ([facility]) . END OF REPORT * ML=Testing performed at Main Lab DEPARTMENT OF PATHOLOGY, [address] [place] [address] Navneet Drake M.D. Director [facility] # [id number] 39 Acute inflammation: >10.00 40 SEE RESULT BELOW Name: SELENA DIANE : [address]: Matti Romero MD Acct: [id number] Unit: [id number] AGE: 34 Location: ED Re07/10/15 SEX: F Status: REG ER SPEC: [id number] TERRENCE: 07/10/[address] [facility] [address]: Matti Romero MD REQ: [id number] RECD: 07/10/15 STATUS: ANDERSON AMEZQUITA DR: Madhavi Mayorga MD Lucy Butcher MD _ SOURCE: URINE SPDESC: ORDERED: Urine Culture Procedure Result Verified Site Urine Culture Final 07/12/15- 0943 ML Organism 1 ESCHERICHIA COLI Helix Count >100,000 (Many) CFU/ML 1. ESCHERICHIA COLI M.I.C. RX --------- ------ Ampicillin <=2 S Cefazolin <=4 S Cefepime <=1 S Ceftriaxone <=1 S Ciprofloxacin 0.5 S Gentamicin <=1 S Levofloxacin 1 S Meropenem <=0.25 S Nitrofurantoin <=16 S Tetracycline <=1 S Pipercillin/Tazobactam <=4 S Trimethoprim/Sulfamethoxazole <=20 S Amoxicillin/Clavulanic Acid <=2 S Aztreonam <=1 S Contact the Microbiology Department for any additional antibiotic reporting. * ML - MAIN LAB ([facility]) . END OF REPORT * ML=Testing performed at Main Lab DEPARTMENT OF PATHOLOGY, [address] [place] [address] Navneet Drake M.D. Director [facility] # [id number] 41 SEE RESULT BELOW Name: SELENA DIANE : [address]: Matti Romero MD Acct: [id number] Unit: [id number] AGE: 34 Location: ED Re07/10/15 SEX: F Status: REG ER SPEC: [id number] TERRENCE: 07/10/[address] [facility] [address]: Matti Romero MD REQ: [id number] RECD: 07/10/15 STATUS: ANDERSON AMEZQUITA DR: Madhavi Mayorga MD Lucy Butcher MD _ SOURCE: BLOOD,VENO SPDESC: ORDERED: Blood Cult COMMENTS: Patient is On Antibiotics? NO Procedure Result Verified Site Aerobic Culture Bottle Final 07/15/15- 5 ML No Growth Day 5 Anaerobic Culture Bottle Final 07/15/15- 5 ML No Growth Day 5 * ML - MAIN LAB ([facility]) . END OF REPORT * ML=Testing performed at Main Lab DEPARTMENT OF PATHOLOGY, [address] [place] [address] Navneet Drake M.D. Director [facility] # [id number] 42 Because ethnic data is not always readily available, this report includes an eGFR for both -Americans and non- Americans. The National Kidney Disease Education Program (NKDEP) does not endorse the use of the MDRD equation for patients that are not between the ages of 18 and 70, are , have extremes of body size, muscle mass, or nutritional status, or are non- or non-. According to the National Kidney Foundation, irrespective of diagnosis, the stage of the disease is based on the level of kidney function: Stage Description GFR(mL/min/1.73 m(2)) 1 Kidney damage with normal or decreased GFR 90 2 Kidney damage with mild decrease in GFR 60-89 3 Moderate decrease in GFR 30-59 4 Severe decrease in GFR 15-29 5 Kidney failure <15 (or dialysis) 43 Because ethnic data is not always readily available, this report includes an eGFR for both -Americans and non- Americans. The National Kidney Disease Education Program (NKDEP) does not endorse the use of the MDRD equation for patients that are not between the ages of 18 and 70, are , have extremes of body size, muscle mass, or nutritional status, or are non- or non-. According to the National Kidney Foundation, irrespective of diagnosis, the stage of the disease is based on the level of kidney function: Stage Description GFR(mL/min/1.73 m(2)) 1 Kidney damage with normal or decreased GFR 90 2 Kidney damage with mild decrease in GFR 60-89 3 Moderate decrease in GFR 30-59 4 Severe decrease in GFR 15-29 5 Kidney failure <15 (or dialysis) 44 Reference Range and Interpretation: TnI (ng/mL) Interpretation Less Than 0.03 ng/mL Not supportive of diagnosis of NV 0.03 - 0.50 ng/mL Indeterminate: suggest serial studies if clinically indicated. Greater than 0.5 ng/mL Consistent with diagnosis of NV 45 >100 to <200 pg/mL: likely compensated congestive heart failure (CHF) 200 to 400 pg/mL: likely moderate CHF >400 pg/mL: likely moderate to severe CHF 46 please also fax results to Dr. Andriy Albrceht [phone] ~~please also fax results to Dr. Andriy Albrecht [phone] please also fax results to Dr. Andriy Albrecht [phone] please also fax results to Dr. Andriy Albrecht please also fax results to Dr. Andriy Albrecht [phone] 47 Therapeutic target for the treatment of diabetes Mellitus patients is <7% HBA1C, and in selective patients <6.0%.Please refer to [place] [employer] Diabetic care guidelines for further information. 48 REFERENCE VALUE 12.0 - 46.0 Test Performed by: [place] [address] Livestock Caretaker: Matti Gould II, M.D., Ph.D. 49 Test Performed by: [address] [address] Livestock Caretaker: Matti Gould II, M.D., Ph.D. 50 please also fax results to Dr. Andriy Albrecht [phone] YES 51 It is recognized that currently available assays for the detection of antibodies to HIV-1 and/or HIV-2 may not detect all infected individuals. HIV antibodies may be undetectable in some stages of the infection and in some clinical conditions. The performance of this assay has not been established for populations of infants or children. Assayed by Chemiluminescence Microparticle Immunoassay on the Siemens Advia Centaur CP. Values obtained with different methods or kits cannot be used interchangeably.The diagnostic specificity of the ADVIA Centaur 1/O/2 Enhanced assay in the low risk population was 99.90% (6052/6058) with a 95% confidence interval of 99.78 to 99.96%. 52 please also fax results to Dr. Andriy Albrecht [phone] 53 draw in am, prior to first dose. 54 -- REFERENCE VALUE -- 12.0 - 46.0 Test Performed by: [place] [address] Livestock Caretaker: Stevo Cuba III, M.D. 55 Test Performed by: [place] [address] Livestock Caretaker: Setvo Cuba III, M.D. 56 Because ethnic data is not always readily available, this report includes an eGFR for both -Americans and non- Americans. The National Kidney Disease Education Program (NKDEP) does not endorse the use of the MDRD equation for patients that are not between the ages of 18 and 70, are , have extremes of body size, muscle mass, or nutritional status, or are non- or non-. According to the National Kidney Foundation, irrespective of diagnosis, the stage of the disease is based on the level of kidney function: Stage Description GFR(mL/min/1.73 m(2)) 1 Kidney damage with normal or decreased GFR 90 2 Kidney damage with mild decrease in GFR 60-89 3 Moderate decrease in GFR 30-59 4 Severe decrease in GFR 15-29 5 Kidney failure <15 (or dialysis) 57 Normal Range 180 to 914 Indeterminate Range 145 to 180 Deficient Range <145 58 -- REFERENCE VALUE -- 12.0 - 46.0 Test Performed by: [facility] [address] [place] [address] Livestock Caretaker: Stevo Cuba III, M.D. 59 Test Performed by: [facility] [address] [place] [address] Livestock Caretaker: Stevo Cuba III, M.D. 60 This test detects intact HCG only and is indicated for the early detection of . 61 RUN DATE: 10/25/13 [facility] LAB LIVE PAGE 1 RUN TIME: [address] [place] [address] Specimen Inquiry Name: SELENA DIANE : [address]: Nathen Green Acct: [id number] Unit: [id number] AGE: 33 Location: ED Re10/20/13 SEX: F Status: DEP ER SPEC: [id number] TERRENCE: 10/20/13-[address] [facility] [address]: Yvette CHOWDHURY REQ: [id number] RECD: 10/20/13 STATUS: ANDERSON AMEZQUITA DR: [facility] Madhavi Mayorga MD PC Lucy Butcher MD _ SOURCE: BLOOD,VENO SPDESC: ORDERED: Blood Cult Procedure Result Verified Site Aerobic Culture Bottle Final 10/25/13- 1213 ML No Growth Day 5 Anaerobic Culture Bottle Final 10/25/13- 1213 ML No Growth Day 5 END OF REPORT * ML=Testing performed at Main Lab DEPARTMENT OF PATHOLOGY, [address] [place] [address] Navneet Drake M.D. Director [place] [facility] #[id number] 62 Please note the change in the INR reference range effective 13. 63 Please note the change in the PTT reference range effective 13. 64 Because ethnic data is not always readily available, this report includes an eGFR for both -Americans and non- Americans. The National Kidney Disease Education Program (NKDEP) does not endorse the use of the MDRD equation for patients that are not between the ages of 18 and 70, are , have extremes of body size, muscle mass, or nutritional status, or are non- or non-. According to the National Kidney Foundation, irrespective of diagnosis, the stage of the disease is based on the level of kidney function: Stage Description GFR(mL/min/1.73 m(2)) 1 Kidney damage with normal or decreased GFR 90 2 Kidney damage with mild decrease in GFR 60-89 3 Moderate decrease in GFR 30-59 4 Severe decrease in GFR 15-29 5 Kidney failure <15 (or dialysis) 65 It is recognized that currently available assays for the detection of antibodies to HIV-1 and/or HIV-2 may not detect all infected individuals. HIV antibodies may be undetectable in some stages of the infection and in some clinical conditions. The performance of this assay has not been established for populations of infants or children. Assayed by Chemiluminescence Microparticle Immunoassay on the Siemens Advia Centaur CP. Values obtained with different methods or kits cannot be used interchangeably.The diagnostic specificity of the ADVIA Centaur 1/O/2 Enhanced assay in the low risk population was 99.90% (6052/6058) with a 95% confidence interval of 99.78 to 99.96%. 66 RUN DATE: 10/25/13 [facility] LAB LIVE PAGE 1 RUN TIME: [address] [place] [address] Specimen Inquiry Name: SELENA DIANE : [address]: Nathen Green Acct: [id number] Unit: [id number] AGE: 33 Location: ED Re10/20/13 SEX: F Status: DEP ER SPEC: [id number] TERRENCE: 10/20/[address] [facility] [address]: Yvette CHOWDHURY REQ: [id number] RECD: 10/20/13 STATUS: ANDERSON AMEZQUITA DR: [facility] Madhavi Mayorga MD Lucy Butcher MD _ SOURCE: BLOOD,VENO SPDES: ORDERED: Blood Cult Procedure Result Verified Site Aerobic Culture Bottle Final 10/25/13- 1206 ML No Growth Day 5 Anaerobic Culture Bottle Final 10/25/13- 1206 ML No Growth Day 5 END OF REPORT * ML=Testing performed at Main Lab DEPARTMENT OF PATHOLOGY, [address] [place] [address] Navneet Drake M.D. Director [facility] Permit #[id number] 67 -- REFERENCE VALUE -- 12.0 - 46.0 Test Performed by: [address] [address] Livestock Caretaker: Stevo Cuba III, M.D. 68 Because ethnic data is not always readily available, this report includes an eGFR for both -Americans and non- Americans. The National Kidney Disease Education Program (NKDEP) does not endorse the use of the MDRD equation for patients that are not between the ages of 18 and 70, are , have extremes of body size, muscle mass, or nutritional status, or are non- or non-. According to the National Kidney Foundation, irrespective of diagnosis, the stage of the disease is based on the level of kidney function: Stage Description GFR(mL/min/1.73 m(2)) 1 Kidney damage with normal or decreased GFR 90 2 Kidney damage with mild decrease in GFR 60-89 3 Moderate decrease in GFR 30-59 4 Severe decrease in GFR 15-29 5 Kidney failure <15 (or dialysis) 69 This test detects intact HCG only and is indicated for the early detection of . 70 Because ethnic data is not always readily available, this report includes an eGFR for both -Americans and non- Americans. The National Kidney Disease Education Program (NKDEP) does not endorse the use of the MDRD equation for patients that are not between the ages of 18 and 70, are , have extremes of body size, muscle mass, or nutritional status, or are non- or non-. According to the National Kidney Foundation, irrespective of diagnosis, the stage of the disease is based on the level of kidney function: Stage Description GFR(mL/min/1.73 m(2)) 1 Kidney damage with normal or decreased GFR 90 2 Kidney damage with mild decrease in GFR 60-89 3 Moderate decrease in GFR 30-59 4 Severe decrease in GFR 15-29 5 Kidney failure <15 (or dialysis) 71 -- REFERENCE VALUE -- 12.0 - 46.0 Test Performed by: [place] [address] Livestock Caretaker: Stevo Cuba III, M.D. 72 -- REFERENCE VALUE -- 12.0 - 46.0 Test Performed by: [address] [address] Livestock Caretaker: Stevo Cuba III, M.D. 73 Test Performed by: [address] [address] Livestock Caretaker: Stevo Cuba III, M.D. 74 @07/15/13 1121: Cell Morphology added. RFLXG=RBC MORPH. 75 -- REFERENCE VALUE -- 12.0 - 46.0 Test Performed by: [address] [address] Livestock Caretaker: Stevo Cuba III, M.D. Procedures Date CPT Code Description Status 10/08/2017 45339 Neurostimulator Pulse Generator Analysis Simple Completed W/Reprogramming 09/18/2017 64859 Neurostimulator Pulse Generator Analysis Simple Completed W/Reprogramming 09/04/2017 40518 Neurostimulator Pulse Generator Analysis Simple Completed W/Reprogramming 08/21/2017 72383 Neurostimulator Pulse Generator Cranial Nerve First Completed Hour 07/31/2017 03816 EEG Monitoring Computer Completed 04/11/2017 94595 EEG Monitoring & Video Recording Completed 04/10/2017 90761 EEG Monitoring & Video Recording Completed 04/09/2017 79903 EEG Monitoring & Video Recording Completed 04/08/2017 58463 EEG Monitoring & Video Recording Completed 04/07/2017 17830 EEG Monitoring & Video Recording Completed 04/06/2017 46057 EEG Monitoring & Video Recording Completed 02/06/2017 08350 EEG Monitoring Computer Completed 11/08/2016 82592 ECHO Transthorasic Realtime 2D W Doppler & Color Completed Flow Hosp Encounters Type Date Location Provider CPT E/M Dx Office Visit 10/08/2017 [facility] [address] G40.219 8:30a Z87.74 F41.9 Office Visit 09/18/2017 1:30p [facility] [address] G40.219 G43.109 Z87.74 F41.9 Office Visit 09/04/2017 8:30a [facility] [address] H53.34 G40.219 Office Visit 08/21/2017 8:30a [facility] [address] G40.219 R11.0 Z87.74 F41.9 Office Visit 07/24/2017 11:00a [facility] [address] G40.219 Z87.74 F41.9 Z79.899 Office Visit 06/25/2017 9:00a [facility] [address] G40.219 Z87.74 Z79.899 F41.9 Office Visit 05/21/2017 2:00p [place] [address] G40.219 Services Of Neonatal Surgeon Z87.74 Z79.899 F41.9 Office Visit 05/01/2017 12:00[place] [address] G40.219 Services Of Neonatal Surgeon Z87.74 Z79.899 F41.9 Office Visit 04/12/2017 11:16a [facility] [place] [address] G40.219 Office Visit 04/11/2017 11:16a [facility] [address] G40.219 Office Visit 04/10/2017 11:15a [facility] [address] G40.219 Office Visit 04/09/2017 11:15a [facility] [address] G40.219 Office Visit 04/08/2017 11:14a [facility] [address] G40.219 Office Visit 04/07/2017 11:14a [facility] Leatha [place] [address] G40.219 Office Visit 04/06/2017 11:11a [facility] [place] [address] G40.219 Z87.74 Office Visit 03/28/2017 12:45p [place] [address] G40.219 Services Of Neonatal Surgeon F41.9 Office Visit 02/27/2017 10:30[place] [address] G40.219 Services Of Neonatal Surgeon F41.9 Z87.74 Office Visit 01/22/2017 4:00p [place] [address] G40.219 Services Of Neonatal Surgeon F41.9 Z87.74 Office Visit 10/31/2016 3:45p [facility] Ezequiel Henderson, 63567 G40.219 Services Of Neonatal Surgeon M.D. Office Visit 10/25/2016 9:30a [facility] 43955 R56.9 Assoc,pc Hospitalists LUCIANA Chairez Q27.30 Office Visit 10/24/2016 1:12p [facility] Ezequiel Malik 91356 G40.219 Chele Henderson Office Visit 10/23/2016 1:08p [facility] Ezequiel Malik 81754 G40.219 Chele Henderson Office Visit 10/23/2016 9:29a [facility], [place], [address] Q27.30 Hospitalists N.P. G40.909 Office Visit 08/04/2016 10:30a [facility] [place] [address] G40.219 Services Of Neonatal Surgeon Z79.899 R51 Office Visit 04/10/2016 2:30p [facility] [place] [address] G40.219 Services Of Neonatal Surgeon Z79.899 Office Visit 01/10/2016 10:30a [place] [place] [address] G40.219 Services Of Neonatal Surgeon Z79.899 Office Visit 11/01/2015 11:30a [facility] Lucy Butcher M.D. 94091 G40.211 Services Of Neonatal Surgeon Office Visit 11/25/2014 11:15a [facility] Lucy Butcher M.D. 70428 345.41 Services Of Neonatal Surgeon V22.2 784.0 Office Visit 04/02/2014 3:45p [facility] Lucy Butcher M.D. 12949 345.41 Services Of Neonatal Surgeon 784.0 Office Visit 12/15/2013 1:45p [facility] Lucy Butcher M.D. 49084 345.11 Services Of Neonatal Surgeon V15.29 Office Visit 10/13/2013 11:15a [facility] Elier Butcher M.D. 61117 345.91 Services Of Neonatal Surgeon Office Visit 08/01/2013 2:00p [facility] Lucy Butcher M.D. 69687 345.91 [facility] Office Visit 04/23/2013 2:00p [facility] Lucy Butcher M.D. 84939 345.90 [facility] Office Visit 12/25/2012 2:15p [facility] Lucy Butcher M.D. 48763 345.41 [facility] V22.2 Office Visit 08/21/2012 4:00p [facility] Lucy Butcher M.D. 28243 345.91 [facility] Plan of Care Future Appointment(s):01/01/2018 11:30 am - Leatha Coles MD at [facility]10/31/2017 - eLatha Coles MDG40.219 Local-rel symptc epi w cmplx part seiz , ntrct, w/o stat epiFollow up:: 2-3 monthsRecommendations:VNS output current was turned up to 2mA and magnet to 2.5mA Goal is over time for the auras to become less and less but may not eliminate them completely. Let's check medicine levels given your dizziness but I bet the sleep deprivation and stress has a lot to do with this.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F41.9 Anxiety disorder, unspecifiedRecommendations:Follow up as scheduled next week with mental health
[2017-11-19 13:38] LABS: ABS Basophils 0 10^3/ul (0-0.2); ABS Eosinophils 0.4 10^3/ul (0-0.6); ABS Lymphocytes 1.9 10^3/ul (1.0-4.8); ABS Monocytes 0.6 10^3/ul (0-0.8); ABS Neutrophils 3.3 10^3/ul (1.5-7.7); ABS Nucleated RBC 0 10^3/ul; Eosinophil % 6.6 % (0-6); Hematocrit 34 % (35-47); Hemoglobin 11.8 g/dl (12.0-16.0); Lymphocyte % 29.8 % (25-47); Mean Corpuscular HGB Conc 34 g/dl (31-36); Mean Corpuscular Hemoglobin 31 pg (27-31); Mean Corpuscular Volume 89 fL (80-97); Mean Platelet Volume 7 um3 (7.4-10.4); Nucleated Red Blood Cells % 0; Platelet Count 242 10^3/ul (150-450); Red Blood Count 3.83 10^6/ul (4.0-5.4); Red Cell Distribution Width 14 % (10.5-15); White Blood Count 6.2 10^3/ul (3.5-10.8)
[2017-11-19 13:45] LABS: INR 1.04 (0.77-1.02)
[2017-11-19 14:59] VITALS: BP 102/65
--- NOTE | 2017-11-19 15:02 | ED ---
Elpidio Bolton Tecjoon, scribed for Gumaro Lee MD on 11/19/17 at 1257 . Neurological HPI - HPI Summary HPI Summary: This patient is a 37 year old female BIBA to [facility] with a chief complaint of left cheek and left arm numbness since earlier this morning. Patient states that she cannot feel her left cheek or arm after digging into it. Patient states that she was on her way to the store and about to take her medication when the sx started. Patient states she also felt her usual aura, and the metallic taste in her mouth. Patient states she suspects an anxiety attack. Pain is rated 3/10 in severity. Symptoms aggravated by nothing. Symptoms alleviated by nothing. Patient additionally reports SOB. - History of Current Complaint Chief Complaint: EDNeurologicalDeficit Stated Complaint: SEIZURE Time Seen by Provider: 11/19/17 12:46 Hx Obtained From: Patient Hx Last Menstrual Period: 2013 Onset/Duration: Sudden Onset, Started hours ago, Still Present Timing: Constant Current Severity: Moderate Neurological Deficit Location: Facial - left cheek, LUE Pain Intensity: 3 Pain Scale Used: 0-10 Numeric Aggravating: Nothing Alleviating: Nothing Associated Signs and Symptoms: Positive: Shortness of Breath - Additional Pertinent History Primary Care Physician: [id number] - Allergy/Home Medications Allergies/Adverse Reactions: Allergies Allergy/AdvReac Type Severity Reaction Status Date / Time Bee Venom Allergy Severe Hives Verified 11/19/17 13:01 Morphine Allergy Severe Hives Verified 11/19/17 13:01 Mushroom Extract Complex Allergy Severe Hives Verified 11/19/17 13:01 Sulfa Antibiotics Allergy Intermediate Rash Verified 11/19/17 13:01 enviromental Allergy Eyes Uncoded 11/19/17 13:01 Itchy/Swollen/Red/Watery PMH/Surg Hx/FS Hx/Imm Hx Previously Healthy: No Endocrine/Hematology History: Reports: Hx Anemia - IV iron tx Denies: Hx Anticoagulant Therapy, Hx Diabetes, Hx Thyroid Disease Cardiovascular History: Denies: Hx Congestive Heart Failure, Hx Hypertension, Hx Pacemaker/ICD Comment Only: Other Cardiovascular Problems/Disorders - Arteriovenous malformation - Sx repair in 2008. Right atrial enlargement. 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 RT TEMPORAL LOBE IN 2008 [place] (removed scar tissue). 5 CSECTIONS. VNM simulater.07/2017 Hx Anesthesia Reactions: No - Immunization History Date of Tetanus Vaccine: None Date of Influenza Vaccine: None Infectious Disease History: No Infectious Disease History: Denies: Hx Hepatitis, Hx Human Immunodeficiency Virus (HIV), Traveled Outside the US in Last 30 Days - Family History Known Family History: Positive: Cardiac Disease, Hypertension, Other - cancer Negative: Diabetes - Social History Alcohol Use: None Hx Substance Use: No Substance Use Type: Reports: Prescribed Substance Use Comment - Amount & Last Used: Ativan Hx Tobacco Use: Yes Smoking Status (MU): Former Smoker Have You Smoked in the Last Year: Yes - had of close relative on 2016 so smoked to cope Review of Systems Positive: Other - "auras". Negative: Fever Positive: Shortness Of Breath Positive: Weakness, Numbness - left arm and cheek All Other Systems Reviewed And Are Negative: Yes Physical Exam - Summary Physical Exam Summary: VITAL SIGNS: Reviewed. GENERAL: Patient is a well developed and nourished female who is lying comfortable in the stretcher. Patient is not in any acute respiratory distress. HEAD AND FACE: Normocephalic EYES: PERRLA, EOMI x 2. EARS: Hearing grossly intact. MOUTH: Oropharynx within normal limits. NECK: Supple, trachea is midline, no adenopathy, no JVD, no carotid bruit. CHEST: Symmetric, no tenderness at palpation LUNGS: Clear to auscultation bilaterally. No wheezing or crackles. CVS: Regular rate and rhythm, S1 and S2 present, no murmurs or gallops appreciated. ABDOMEN: Soft, non-tender. Bowel sounds are normal. No abdominal abnormal pulsations. EXTREMITIES: Full ROM in all major joints, no edema, no cyanosis or clubbing. NEURO: Alert and oriented x 3. No acute neurological deficits. Speech is normal and follows commands. SKIN: Dry and warm Triage Information Reviewed: Yes Vital Signs On Initial Exam: Initial Vitals Temp Pulse Resp BP Pulse Ox 97.4 F 98 15 127/50 98 11/19/17 12:40 11/19/17 12:40 11/19/17 12:40 11/19/17 12:40 11/19/17 12:40 Vital Signs Reviewed: Yes Diagnostics - Vital Signs Vital Signs Temp Pulse Resp BP Pulse Ox 11/19/17 12:40 97.4 F 98 15 127/50 98 - Laboratory Lab Results: Lab Results 11/19/17 11/19/17 11/19/17 Range/Units 13:30 13:30 13:30 WBC 6.2 (3.5-10.8) 10^3/ul RBC 3.83 L (4.0-5.4) 10^6/ul Hgb 11.8 L (12.0-16.0) g/dl Hct 34 L (35-47) % MCV 89 (80-97) fL MCH 31 (27-31) pg MCHC 34 (31-36) g/dl RDW 14 (10.5-15) % Plt Count 242 (150-450) 10^3/ul MPV 7 L (7.4-10.4) um3 Neut % (Auto) 53.2 (38-83) % Lymph % (Auto) 29.8 (25-47) % [place] % (Auto) 9.9 H (1-9) % Eos % (Auto) 6.6 H (0-6) % Baso % (Auto) 0.5 (0-2) % Absolute Neuts (auto) 3.3 (1.5-7.7) 10^3/ul Absolute Lymphs (auto) 1.9 (1.0-4.8) 10^3/ul Absolute Monos (auto) 0.6 (0-0.8) 10^3/ul Absolute Eos (auto) 0.4 (0-0.6) 10^3/ul Absolute Basos (auto) 0 (0-0.2) 10^3/ul Absolute Nucleated RBC 0 10^3/ul Nucleated RBC % 0 INR (Anticoag Therapy) 1.04 H (0.77-1.02) Sodium 135 (133-145) mmol/L Potassium 3.8 (3.5-5.0) mmol/L Chloride 107 (101-111) mmol/L Carbon Dioxide 23 (22-32) mmol/L Anion Gap 5 (2-11) mmol/L BUN 13 (6-24) mg/dL Creatinine 0.57 (0.51-0.95) mg/dL Est GFR ( Amer) 154.3 (>60) Est GFR (Non-Af Amer) 120.0 (>60) BUN/Creatinine Ratio 22.8 H (8-20) Glucose 87 (70-100) mg/dL Calcium 9.0 (8.6-10.3) mg/dL Magnesium 2.0 (1.9-2.7) mg/dL Total Bilirubin 0.30 (0.2-1.0) mg/dL AST 28 (13-39) U/L ALT 23 (7-52) U/L Alkaline Phosphatase 35 (34-104) U/L Total Protein 6.2 L (6.4-8.9) g/dL Albumin 4.1 (3.2-5.2) g/dL Globulin 2.1 (2-4) g/dL Albumin/Globulin Ratio 2.0 (1-3) Serum Alcohol < 10 (<10) mg/dL Result Diagrams: 11/19/17 13:30 11/19/17 13:30 Lab Statement: Any lab studies that have been ordered have been reviewed, and results considered in the medical decision making process. Course/Dx - Course Course Of Treatment: This patient is a 37 year old female BIBA to [facility] with a chief complaint of left cheek and left arm numbness since earlier this morning. Patient states that she cannot feel her left cheek or arm after digging into it. Patient states that she was on her way to the store and about to take her medication when the sx started. Patient states she also felt her usual aura, and the metallic taste in her mouth. Patient states she suspects an anxiety attack. Pain is rated 3/10 in severity. Symptoms aggravated by nothing. Symptoms alleviated by nothing. Patient additionally reports SOB. Bloodwork Obtained. Urinalysis Obtained. We discussed patient care with Dr. Coles ( Neurology) and they did not recommend Head CT or any other interventions. Dr. Coles advises to have the patient discharged and follow up with an appointment at her office. Patient will be discharged with a diagnosis for aura and is advised to follow up with Dr. Coles (Neurology) in 3 days. The patient is agreeable with this plan. - Differential Dx Differential Diagnoses Neuro: Positive: Benign Paroxysmal Positional Vertigo, Seizure Disorder, Transient Ischemic Attack, Vasovagal Reaction - Diagnoses Provider Diagnoses: Aura, Epilepsia, Localization-related symptomatic epilepsy and epileptic syndromes with complex partial seizures, intractable, with status epilepticus - Physician Notifications Discussed Care Of Patient With: Leatha Coles Time Discussed With Above Provider: 14:21 - We discussed patient care with Dr. Coles (Neurology) at 1421 and they did not recommend Head CT or any other interventions. Dr. Coles advises to have the patient discharged and follow up with an appointment at her office. Discharge - Discharge Plan Condition: Stable Disposition: HOME Patient Education Materials: Epilepsy (ED) Referrals: Madhavi Mayorga MD [Primary Care Provider] - 3 Days Leatha Coles MD [Medical Doctor] - 3 Days Additional Instructions: Patient will be discharged with a diagnosis for aura and is advised to follow up with Dr. Coles (Neurology) in 3 days. The patient is agreeable with this plan. Return to the ED for persisting or worsening symptoms. The documentation as recorded by the Elpidio weller Tecjoon accurately reflects the service I personally performed and the decisions made by Jesus coker Walter, MD.
== END 2017-11-19 15:03 | disposition home or self-care (01) ==
LOC: ED 12:34
DX: G40.211 Localization-related (focal) (partial) symptomatic epilepsy and epileptic syndromes with complex partial seizures, intractable, with status epilepticus (principal); Z88.5 Allergy status to narcotic agent; Z88.2 Allergy status to sulfonamides; Z87.891 Personal history of nicotine dependence
CPT/HCPCS: 36415; 80053; 80320; 83735; 85025; 85610; 99284; G0480

== ENCOUNTER 2017-11-24 11:31 | Emergency (ER) | payer OTHER ==
[2017-11-24 13:14] LABS: ABS Basophils 0 10^3/ul (0-0.2); ABS Eosinophils 0.2 10^3/ul (0-0.6); ABS Lymphocytes 1.5 10^3/ul (1.0-4.8); ABS Monocytes 0.6 10^3/ul (0-0.8); ABS Neutrophils 4.3 10^3/ul (1.5-7.7); ABS Nucleated RBC 0 10^3/ul; Eosinophil % 3.5 % (0-6); Hematocrit 35 % (35-47); Hemoglobin 11.8 g/dl (12.0-16.0); Lymphocyte % 22.1 % (25-47); Mean Corpuscular HGB Conc 34 g/dl (31-36); Mean Corpuscular Hemoglobin 31 pg (27-31); Mean Corpuscular Volume 89 fL (80-97); Mean Platelet Volume 7 um3 (7.4-10.4); Nucleated Red Blood Cells % 0; Platelet Count 272 10^3/ul (150-450); Red Blood Count 3.87 10^6/ul (4.0-5.4); Red Cell Distribution Width 14 % (10.5-15); White Blood Count 6.6 10^3/ul (3.5-10.8)
[2017-11-24 13:30] LABS: EGFR Non-African American 139.6 (>60)
[2017-11-24 13:55] LABS: INR 0.91 (0.77-1.02)
--- NOTE | 2017-11-24 13:55 | RAD ---
INDICATION: Seizure. COMPARISON: Comparison is made with a prior CT of the brain from May 20, 2017. TECHNIQUE: Contiguous axial sections of the brain were obtained from the skull base to the vertex without contrast. FINDINGS: The patient is status post right frontal, parietal and temporal craniotomy. There is a large area of postsurgical encephalomalacia involving the right temporal lobe extending into the inferior right parietal lobe. There is communication with the right lateral ventricle. These findings are unchanged from the prior exam. No other focal abnormality or mass effect is seen. There is no evidence for hemorrhage. The visualized portion of the paranasal sinuses and mastoid air cells appear clear. IMPRESSION: POSTSURGICAL ENCEPHALOMALACIA INVOLVING THE RIGHT TEMPORAL AND PARIETAL LOBES, UNCHANGED. NO EVIDENCE FOR ACUTE FINDING.
--- NOTE | 2017-11-24 15:58 | ED ---
Ayad Bolton Natalie, scribed for Mp Hutchinson MD on 11/24/17 at 1230 . Neurological HPI - HPI Summary HPI Summary: The pt is a 37 y/o F presenting to the ED c/o having four seizures since yesterday. After having three seizures yesterday, she called Dr. Ruano who told the pt to take 5mg of Onfi. Her most recent seizure occurred at 06:00 this morning. Pt additionally c/o aura getting worse, urinary incontinence, numb and burning sensation throughout extremities, worsened left peripheral vision, umbilical region abd pain (lasting a few months), fevers, left-sided weakness, and vomiting. The last time prior to the last two days that she had a seizure was about 2 months ago. She has been taking her seizure medications as usual. She uses VNS (placed in 08/14/17) which usually helps. Pt had right temporal lobe surgery to remove blood stained brain tissue. - History of Current Complaint Chief Complaint: EDSeizure Stated Complaint: SEIZURE AURA Hx Obtained From: Patient Hx Last Menstrual Period: 2013 Onset/Duration: Sudden Onset, Started hours ago - 4 epsiodes since yesterday Timing: Sudden Onset Onset Severity: Moderate Current Severity: Moderate Seizure Severity: Moderate Number of Seizures: 4 Pain Intensity: 0 Pain Scale Used: 0-10 Numeric Character: Numbness/Tingling - to all four extremities, Visual Changes - worsened left peripheral vision, Other: - "aura getting worse" Aggravating: Nothing Alleviating: Nothing Associated Signs and Symptoms: Positive: Nothing - aura getting worse, urinary incontinence, numb and burning sensation throughout extremities, worsened left peripheral vision, umbilical abd pain (lasting a few months), fevers, left- sided weakness, and vomiting - Additional Pertinent History Primary Care Physician: [id number] - Allergy/Home Medications Allergies/Adverse Reactions: Allergies Allergy/AdvReac Type Severity Reaction Status Date / Time Bee Venom Allergy Severe Hives Verified 11/19/17 13:01 Morphine Allergy Severe Hives Verified 11/19/17 13:01 Mushroom Extract Complex Allergy Severe Hives Verified 11/19/17 13:01 Sulfa Antibiotics Allergy Intermediate Rash Verified 11/19/17 13:01 enviromental Allergy Eyes Uncoded 11/19/17 13:01 Itchy/Swollen/Red/Watery PMH/Surg Hx/FS Hx/Imm Hx Previously Healthy: No Endocrine/Hematology History: Reports: Hx Anemia - IV iron tx Denies: Hx Anticoagulant Therapy, Hx Diabetes, Hx Thyroid Disease Cardiovascular History: Denies: Hx Congestive Heart Failure, Hx Hypertension, Hx Pacemaker/ICD Comment Only: Other Cardiovascular Problems/Disorders - Arteriovenous malformation - Sx repair in 2008. Right atrial enlargement. 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 RT TEMPORAL LOBE IN 2008 [place] (removed scar tissue). 5 CSECTIONS. VNM simulater.07/2017 Hx Anesthesia Reactions: No - Immunization History Date of Tetanus Vaccine: None Date of Influenza Vaccine: None Infectious Disease History: No Infectious Disease History: Denies: Hx Hepatitis, Hx Human Immunodeficiency Virus (HIV), Traveled Outside the US in Last 30 Days - Family History Known Family History: Positive: Cardiac Disease, Hypertension, Other - cancer Negative: Diabetes - Social History Alcohol Use: None Hx Substance Use: No Substance Use Type: Reports: Prescribed Substance Use Comment - Amount & Last Used: Ativan Hx Tobacco Use: Yes Smoking Status (MU): Former Smoker Have You Smoked in the Last Year: Yes - had of close relative on 2016 so smoked to cope Review of Systems Positive: Fever Positive: Other - worsened left peripheral vision Positive: Abdominal Pain - umbilical region abd pain, Vomiting Positive: Other - numb and burning sensation throughout extremities Neurological: Other - 4x seizures, "aura getting worse," Positive: Weakness - left-sided All Other Systems Reviewed And Are Negative: Yes Physical Exam - Summary Physical Exam Summary: Appearance: Well-appearing, Well-nourished Skin: Warm, dry Eyes: Normal, Extraocular movements intact, PERRL HENT: Normal, Moist mucous membrabes Neck: Supple, nontender Respiratory: Clear to auscultation Cardiovascular: Normal, S1 and S2, No murmurs, Nml bilateral pulses Abdomen: Soft, nontender, no distension Bowel: normal bowel sounds Neurological: A&Ox3, Normal strength and sensation in upper and lower extremities on R side, Weakness of left upper and lower extremities normal to baseline Psychiatric: Normal Triage Information Reviewed: Yes Vital Signs On Initial Exam: Initial Vitals Temp Pulse Resp BP Pulse Ox 97.9 F 82 16 105/78 99 11/24/17 11:37 11/24/17 11:37 11/24/17 11:37 11/24/17 11:37 11/24/17 11:37 Vital Signs Reviewed: Yes - [place] Coma Scale Coma Scale Total: 15 Diagnostics - Vital Signs Vital Signs Temp Pulse Resp BP Pulse Ox 11/24/17 11:37 97.9 F 82 16 105/78 99 - Laboratory Lab Results: Lab Results 11/24/17 11/24/17 11/24/17 Range/Units 13:03 13:03 13:03 WBC 6.6 (3.5-10.8) 10^3/ul RBC 3.87 L (4.0-5.4) 10^6/ul Hgb 11.8 L (12.0-16.0) g/dl Hct 35 (35-47) % MCV 89 (80-97) fL MCH 31 (27-31) pg MCHC 34 (31-36) g/dl RDW 14 (10.5-15) % Plt Count 272 (150-450) 10^3/ul MPV 7 L (7.4-10.4) um3 Neut % (Auto) 65.4 (38-83) % Lymph % (Auto) 22.1 L (25-47) % [place] % (Auto) 8.9 (1-9) % Eos % (Auto) 3.5 (0-6) % Baso % (Auto) 0.1 (0-2) % Absolute Neuts (auto) 4.3 (1.5-7.7) 10^3/ul Absolute Lymphs (auto) 1.5 (1.0-4.8) 10^3/ul Absolute Monos (auto) 0.6 (0-0.8) 10^3/ul Absolute Eos (auto) 0.2 (0-0.6) 10^3/ul Absolute Basos (auto) 0 (0-0.2) 10^3/ul Absolute Nucleated RBC 0 10^3/ul Nucleated RBC % 0 INR (Anticoag Therapy) 0.91 (0.77-1.02) Sodium 135 (133-145) mmol/L Potassium 3.8 (3.5-5.0) mmol/L Chloride 103 (101-111) mmol/L Carbon Dioxide 25 (22-32) mmol/L Anion Gap 7 (2-11) mmol/L BUN 8 (6-24) mg/dL Creatinine 0.50 L (0.51-0.95) mg/dL Est GFR ( Amer) 179.5 (>60) Est GFR (Non-Af Amer) 139.6 (>60) BUN/Creatinine Ratio 16.0 (8-20) Glucose 86 (70-100) mg/dL Lactic Acid (0.5-2.0) mmol/L Calcium 9.5 (8.6-10.3) mg/dL Magnesium 2.1 (1.9-2.7) mg/dL Total Bilirubin 0.30 (0.2-1.0) mg/dL AST 28 (13-39) U/L ALT 21 (7-52) U/L Alkaline Phosphatase 46 (34-104) U/L Total Protein 6.5 (6.4-8.9) g/dL Albumin 4.4 (3.2-5.2) g/dL Globulin 2.1 (2-4) g/dL Albumin/Globulin Ratio 2.1 (1-3) Beta HCG, Quant < 0.60 mIU/mL Carbamazepine < 2.0 L (4.0-12.0) mcg/mL 11/24/17 Range/Units 13:03 WBC (3.5-10.8) 10^3/ul RBC (4.0-5.4) 10^6/ul Hgb (12.0-16.0) g/dl Hct (35-47) % MCV (80-97) fL MCH (27-31) pg MCHC (31-36) g/dl RDW (10.5-15) % Plt Count (150-450) 10^3/ul MPV (7.4-10.4) um3 Neut % (Auto) (38-83) % Lymph % (Auto) (25-47) % [place] % (Auto) (1-9) % Eos % (Auto) (0-6) % Baso % (Auto) (0-2) % Absolute Neuts (auto) (1.5-7.7) 10^3/ul Absolute Lymphs (auto) (1.0-4.8) 10^3/ul Absolute Monos (auto) (0-0.8) 10^3/ul Absolute Eos (auto) (0-0.6) 10^3/ul Absolute Basos (auto) (0-0.2) 10^3/ul Absolute Nucleated RBC 10^3/ul Nucleated RBC % INR (Anticoag Therapy) (0.77-1.02) Sodium (133-145) mmol/L Potassium (3.5-5.0) mmol/L Chloride (101-111) mmol/L Carbon Dioxide (22-32) mmol/L Anion Gap (2-11) mmol/L BUN (6-24) mg/dL Creatinine (0.51-0.95) mg/dL Est GFR ( Amer) (>60) Est GFR (Non-Af Amer) (>60) BUN/Creatinine Ratio (8-20) Glucose (70-100) mg/dL Lactic Acid 0.6 (0.5-2.0) mmol/L Calcium (8.6-10.3) mg/dL Magnesium (1.9-2.7) mg/dL Total Bilirubin (0.2-1.0) mg/dL AST (13-39) U/L ALT (7-52) U/L Alkaline Phosphatase (34-104) U/L Total Protein (6.4-8.9) g/dL Albumin (3.2-5.2) g/dL Globulin (2-4) g/dL Albumin/Globulin Ratio (1-3) Beta HCG, Quant mIU/mL Carbamazepine (4.0-12.0) mcg/mL Result Diagrams: 11/24/17 13:03 11/24/17 13:03 Lab Statement: Any lab studies that have been ordered have been reviewed, and results considered in the medical decision making process. - CT CT Brain CT Interpretation: No Acute Changes - Postsurgical encephalomalacia involving the right temporal and parietal lobes, unchanged. No evidence for acute finding. ED physician has reviewed this report. CT Interpretation Completed By: Radiologist Course/Dx - Course Course Of Treatment: I spoke with pt's neurologist Dr. Ruano, who has been in contact with the patient several times over past two days, pt feels well currently, no active seizures. no ct changes, Dr. Ruano and I agree that pt does not require any changes to seizure regimen at this time, and that outpatient f/u is appropriate. pt agrees to and understnads dc instructions. - Diagnoses Provider Diagnoses: Epilepsy - Physician Notifications Discussed Care Of Patient With: Ezequiel Ruano - spoke with on the phone Discharge - Discharge Plan Condition: Stable Disposition: HOME Patient Education Materials: Epilepsy (ED) Referrals: Madhavi Mayorga MD [Primary Care Provider] - Ezequiel Ruano MD [Medical Doctor] - Additional Instructions: PLEASE MAKE AN APPOINTMENT TO BE SEEN BY DR. RUANO WITHIN 1-2 WEEKS PLEASE RETURN IMMEDIATELY TO THE ER IF YOU HAVE ANY WORSENING OR CONCERNING SYMPTOMS PLEASE MAKE AN APPOINTMENT TO BE SEEN BY YOUR PRIMARY CARE DOCTOR WITHIN 1 WEEK The documentation as recorded by the Ayad weller Natalie accurately reflects the service I personally performed and the decisions made by me, Mp Hutchinson MD.
[2017-11-24 16:21] VITALS: BP 107/72
== END 2017-11-24 16:20 | disposition home or self-care (01) ==
LOC: ED 11:31
DX: G40.909 Epilepsy, unspecified, not intractable, without status epilepticus (principal); Z87.891 Personal history of nicotine dependence; Z88.5 Allergy status to narcotic agent; Z88.2 Allergy status to sulfonamides
CPT/HCPCS: 36415; 70450; 80053; 80156; 83605; 83735; 84702; 85025; 85610; 99283

== ENCOUNTER 2018-01-10 12:37 | Emergency (ER) | payer OTHER ==
[2018-01-10] MEDS ORDERED: NS 0.9% 1000 ML* 1,000 ML IV ONE ×2 (13:00)
[2018-01-10] MEDS ORDERED: LORazepam INJ* 2 MG/ML 1 ML VIAL IV PUSH ONE (13:00)
[2018-01-10 13:32] LABS: ABS Basophils 0 10^3/ul (0-0.2); ABS Eosinophils 0.3 10^3/ul (0-0.6); ABS Lymphocytes 1.7 10^3/ul (1.0-4.8); ABS Monocytes 0.6 10^3/ul (0-0.8); ABS Neutrophils 4.6 10^3/ul (1.5-7.7); ABS Nucleated RBC 0 10^3/ul; Eosinophil % 3.6 % (0-6); Hematocrit 34 % (35-47); Hemoglobin 11.8 g/dl (12.0-16.0); Lymphocyte % 23.8 % (25-47); Mean Corpuscular HGB Conc 35 g/dl (31-36); Mean Corpuscular Hemoglobin 31 pg (27-31); Mean Corpuscular Volume 89 fL (80-97); Mean Platelet Volume 7 um3 (7.4-10.4); Nucleated Red Blood Cells % 0; Platelet Count 246 10^3/ul (150-450); Red Blood Count 3.82 10^6/ul (4.0-5.4); Red Cell Distribution Width 14 % (10.5-15); White Blood Count 7.3 10^3/ul (3.5-10.8)
[2018-01-10 13:56] LABS: EGFR Non-African American 127.7 (>60)
[2018-01-10 14:04] VITALS: BP 99/64
[2018-01-10] MEDS ORDERED: Potassium Chlor TAB* 20 MEQ TAB.ER PO ONE (14:06)
--- NOTE | 2018-01-10 14:16 | RAD ---
INDICATION: Cough COMPARISON: October 07, 2017 TECHNIQUE: An AP portable view obtained at 1330 hours is submitted. FINDINGS: Bones/Soft Tissues: There are no acute bony findings. Cardiomediastinal: The cardiomediastinal silhouette is normal. Lungs: There are no infiltrates. Pleura: There are no pleural effusions. Other: There is an implanted generator projecting over the left upper chest IMPRESSION: NO ACTIVE DISEASE. LUNGS CLEAR.
[2018-01-10] MEDS ORDERED: Magnesium Sulfate 1 GM IV* 1 GM/100 ML BAG IV ONE (14:19)
[2018-01-10 15:28] LABS: Urine Appearance Cloudy; Urine Blood Negative (Negative); Urine Color Yellow; Urine Ketones Negative (Negative); Urine Protein Negative (Negative); Urine Specific Gravity 1.019 (1.010-1.030); Urine Urobilinogen Negative (Negative)
--- NOTE | 2018-01-10 15:43 | ED ---
Richy Bolton Julia, scribed for Gumaro Pineda MD on 01/10/18 at 1308 . Neurological HPI - HPI Summary HPI Summary: This patient is a 37 year old F BIBA to [facility] due to a tonic clonic seizure that resolved yesterday now with onset of aura with metallic taste, L ear pulsations, and L sided weakness beginning a few hours ago. These are typically symptoms prior to seizures. 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 She states her medication ran out over the weekend and her neurologist gave her Keppra until her new medication came into the pharmacy. Patient has since continued her medication as prescribed. Her seizure yesterday lasted about 10 mins per the patient. - History of Current Complaint Chief Complaint: EDSeizure Stated Complaint: SEIZURE-LIKE ACTIVITY Time Seen by Provider: 01/10/18 12:52 Hx Obtained From: Patient Hx Last Menstrual Period: 2013 Onset/Duration: Started hours ago Timing: Constant Number of Seizures: 1 - history of seizures Headache Location: Diffuse (Left) - ear Pain Intensity: 0 Character: Motor Weakness - L, Visual Changes, Other: - metallic taste Frequency: Ongoing Incidents Of Syncope For (in Mins/Days/Weeks/Years) - long standing history of seizures Seizure Character: Total-Clonic Associated Signs and Symptoms: Positive: Weakness, Seizure, Pain - L ear. Negative: Nothing - metallic taste Similar Episode/Dx as: previous seizures - Additional Pertinent History Primary Care Physician: [id number] - Allergy/Home Medications Allergies/Adverse Reactions: Allergies Allergy/AdvReac Type Severity Reaction Status Date / Time bee venom protein (honey bee) Allergy Hives Verified 01/10/18 12:51 morphine Allergy Hives Verified 01/10/18 12:51 mushroom Allergy Hives Verified 01/10/18 12:51 Sulfa (Sulfonamide Allergy Rash Verified 01/10/18 12:51 Antibiotics) enviromental Allergy Eyes Uncoded 01/10/18 12:43 Itchy/Swollen/Red/Watery PMH/Surg Hx/FS Hx/Imm Hx Endocrine/Hematology History: Reports: Hx Anemia - IV iron tx Denies: Hx Anticoagulant Therapy, Hx Diabetes, Hx Thyroid Disease Cardiovascular History: Denies: Hx Congestive Heart Failure, Hx Hypertension, Hx Pacemaker/ICD Comment Only: Other Cardiovascular Problems/Disorders - Arteriovenous malformation - Sx repair in 2008. Right atrial enlargement. 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 RT TEMPORAL LOBE IN 2008 [place] (removed scar tissue). 5 CSECTIONS. VNM simulater.07/2017 Hx Anesthesia Reactions: No - Immunization History Date of Tetanus Vaccine: None Date of Influenza Vaccine: None Infectious Disease History: No Infectious Disease History: Denies: Hx Hepatitis, Hx Human Immunodeficiency Virus (HIV), Traveled Outside the [place] in Last 30 Days - Family History Known Family History: Positive: Cardiac Disease, Hypertension, Other - cancer Negative: Diabetes - Social History Alcohol Use: None Hx Substance Use: No Substance Use Type: Reports: Prescribed Substance Use Comment - Amount & Last Used: Ativan Hx Tobacco Use: Yes Smoking Status (MU): Former Smoker Have You Smoked in the Last Year: Yes - had of close relative on 2016 so smoked to cope Review of Systems Positive: Ear Ache - L Neurological: Other - metallic taste Positive: Weakness - L sided All Other Systems Reviewed And Are Negative: Yes Physical Exam Triage Information Reviewed: Yes Vital Signs On Initial Exam: Initial Vitals Temp Pulse Resp BP Pulse Ox 98.5 F 94 16 104/70 100 01/10/18 12:41 01/10/18 12:41 01/10/18 12:41 01/10/18 12:41 01/10/18 12:41 Vital Signs Reviewed: Yes Appearance: Positive: Well-Appearing, No Pain Distress Skin: Positive: Warm, Skin Color Reflects Adequate Perfusion Head/Face: Positive: Normal Head/Face Inspection Eyes: Positive: EOMI ENT: Positive: Pharynx normal, TMs normal Neck: Positive: Nontender Respiratory/Lung Sounds: Positive: Clear to Auscultation, Breath Sounds Present Cardiovascular: Positive: RRR. Negative: Murmur Abdomen Description: Positive: Nontender Neurological: Positive: Alert, Oriented to Person Place, Time, CN Intact II- III. Negative: Sensory/Motor Intact - left side arm and left weak Psychiatric: Positive: Normal - [place]gil Coma Scale Best Eye Response: 4 - Spontaneous Best Motor Response: 6 - Obeys Commands Best Verbal Response: 5 - Oriented Coma Scale Total: 15 Diagnostics - Vital Signs Vital Signs Temp Pulse Resp BP Pulse Ox 01/10/18 12:41 98.5 F 94 16 104/70 100 - Laboratory Lab Results: Lab Results 01/10/18 01/10/18 01/10/18 Range/Units 13:25 13:25 13:25 WBC 7.3 (3.5-10.8) 10^3/ul RBC 3.82 L (4.0-5.4) 10^6/ul Hgb 11.8 L (12.0-16.0) g/dl Hct 34 L (35-47) % MCV 89 (80-97) fL MCH 31 (27-31) pg MCHC 35 (31-36) g/dl RDW 14 (10.5-15) % Plt Count 246 (150-450) 10^3/ul MPV 7 L (7.4-10.4) um3 Neut % (Auto) 63.5 (38-83) % Lymph % (Auto) 23.8 L (25-47) % Rush % (Auto) 8.8 H (0-7) % Eos % (Auto) 3.6 (0-6) % Baso % (Auto) 0.3 (0-2) % Absolute Neuts (auto) 4.6 (1.5-7.7) 10^3/ul Absolute Lymphs (auto) 1.7 (1.0-4.8) 10^3/ul Absolute Monos (auto) 0.6 (0-0.8) 10^3/ul Absolute Eos (auto) 0.3 (0-0.6) 10^3/ul Absolute Basos (auto) 0 (0-0.2) 10^3/ul Absolute Nucleated RBC 0 10^3/ul Nucleated RBC % 0 INR (Anticoag Therapy) 1.00 (0.77-1.02) Sodium 137 (133-145) mmol/L Potassium 3.2 L (3.5-5.0) mmol/L Chloride 105 (101-111) mmol/L Carbon Dioxide 25 (22-32) mmol/L Anion Gap 7 (2-11) mmol/L BUN 9 (6-24) mg/dL Creatinine 0.54 (0.51-0.95) mg/dL Est GFR ( Amer) 164.3 (>60) Est GFR (Non-Af Amer) 127.7 (>60) BUN/Creatinine Ratio 16.7 (8-20) Glucose 98 (70-100) mg/dL Lactic Acid (0.5-2.0) mmol/L Calcium 9.4 (8.6-10.3) mg/dL Magnesium 1.7 L (1.9-2.7) mg/dL Total Bilirubin 0.30 (0.2-1.0) mg/dL AST 16 (13-39) U/L ALT 12 (7-52) U/L Alkaline Phosphatase 44 (34-104) U/L Total Protein 6.2 L (6.4-8.9) g/dL Albumin 3.9 (3.2-5.2) g/dL Globulin 2.3 (2-4) g/dL Albumin/Globulin Ratio 1.7 (1-3) 01/10/18 Range/Units 13:25 WBC (3.5-10.8) 10^3/ul RBC (4.0-5.4) 10^6/ul Hgb (12.0-16.0) g/dl Hct (35-47) % MCV (80-97) fL MCH (27-31) pg MCHC (31-36) g/dl RDW (10.5-15) % Plt Count (150-450) 10^3/ul MPV (7.4-10.4) um3 Neut % (Auto) (38-83) % Lymph % (Auto) (25-47) % Rush % (Auto) (0-7) % Eos % (Auto) (0-6) % Baso % (Auto) (0-2) % Absolute Neuts (auto) (1.5-7.7) 10^3/ul Absolute Lymphs (auto) (1.0-4.8) 10^3/ul Absolute Monos (auto) (0-0.8) 10^3/ul Absolute Eos (auto) (0-0.6) 10^3/ul Absolute Basos (auto) (0-0.2) 10^3/ul Absolute Nucleated RBC 10^3/ul Nucleated RBC % INR (Anticoag Therapy) (0.77-1.02) Sodium (133-145) mmol/L Potassium (3.5-5.0) mmol/L Chloride (101-111) mmol/L Carbon Dioxide (22-32) mmol/L Anion Gap (2-11) mmol/L BUN (6-24) mg/dL Creatinine (0.51-0.95) mg/dL Est GFR ( Amer) (>60) Est GFR (Non-Af Amer) (>60) BUN/Creatinine Ratio (8-20) Glucose (70-100) mg/dL Lactic Acid 1.5 (0.5-2.0) mmol/L Calcium (8.6-10.3) mg/dL Magnesium (1.9-2.7) mg/dL Total Bilirubin (0.2-1.0) mg/dL AST (13-39) U/L ALT (7-52) U/L Alkaline Phosphatase (34-104) U/L Total Protein (6.4-8.9) g/dL Albumin (3.2-5.2) g/dL Globulin (2-4) g/dL Albumin/Globulin Ratio (1-3) Result Diagrams: 01/10/18 13:25 01/10/18 13:25 Lab Statement: Any lab studies that have been ordered have been reviewed, and results considered in the medical decision making process. - Radiology CXR Radiology Interpretation Completed By: Radiologist - NO ACTIVE DISEASE. LUNGS CLEAR. ED Physician has reviewed this report. Re-Evaluation - Re-Evaluation 1 Re-Evaluation Time: 14:00 Change: Improved - aura has resolved completely Comment: She has complete resolution of left side weakness after the ativan. Case DW Dr Solorio who recommends dc home. No medication changes. Course/Dx - Course Course Of Treatment: Patient in ED due to tonic clonic seizure that resolved yesterday now with onset of aura with metallic taste, L ear pulsations, and L sided weakness beginning a few hours ago. These are typically symptoms prior to seizures. Pateint is given Ativan. A CXR is of no acute concern. Patient feels better over tiime in ED. Dr. Solorio recomends this patient is discharged. No change in medications. - Diagnoses Provider Diagnoses: Seizure - Physician Notifications Discussed Care Of Patient With: Nadeem Solorio Time Discussed With Above Provider: 14:05 Instructed by Provider To: Other - send patient home. Discharge - Discharge Plan Condition: Good Disposition: HOME Patient Education Materials: Epilepsy (ED) Referrals: Leatha Coles MD [Medical Doctor] - 1 Day Madhavi Mayorga MD [Primary Care Provider] - The documentation as recorded by the Richy weller Julia accurately reflects the service I personally performed and the decisions made by me, Gumaro Pineda MD.
== END 2018-01-10 16:04 | disposition home or self-care (01) ==
LOC: ED 12:37
DX: R56.9 Unspecified convulsions (principal); R53.1 Weakness; Z87.891 Personal history of nicotine dependence
CPT/HCPCS: 36415; 71045; 80053; 81003; 83605; 83735; 85025; 85610; 96374; 96375; 99283; A9270-GY; J2060; J3475

== ENCOUNTER 2018-01-28 17:49 | Emergency (ER) | payer OTHER ==
[2018-01-28 18:06] VITALS: BP 99/65
--- NOTE | 2018-01-28 18:38 | UC ---
Derik Bolton Gabriel, scribed for Phuong Tian MD on 01/28/18 at 1836 . Dental HPI - HPI Summary HPI Summary: This patient is a 37 year old [place] [facility] [place] a chief complaint of bilateral tooth pain since 01-22-18 following a tooth extraction. The patient rates the pain 10/10 in severity. Symptoms alleviated by [place] but has run out. Pt has been taking motrin and Tylenol without much improvement. Pt states she has noted a bad taste in mouth and swelling of left lower jaw. Pt concerned for infection. Pt denies fevers, chills. Pt states that the pain caused her to have seizure last night - pt with a fragile seizure history, has an implanted vagal stimulator, and is closely followed by neurology. Pt states called her oral surgeon and has an appointment schedule for Sunday. Hx seizure. At 1130 today she took Tylenol and ibuprofen. Family drove pt to appt today Patients medication reviewed during this visit. - History of Current Complaint Chief Complaint: UCDentalProblem Stated Complaint: DENTAL PAIN Time Seen by Provider: 01/28/18 17:58 Hx Obtained From: Patient Hx Last Menstrual Period: none Onset/Duration: Still Present Severity: Severe Pain Intensity: 10 Pain Scale Used: 0-10 Numeric Alleviating Factor(s): Other (see comments) - medication - Allergies/Home Medications Allergies/Adverse Reactions: Allergies Allergy/AdvReac Type Severity Reaction Status Date / Time bee venom protein (honey bee) Allergy Hives Verified 01/28/18 18:07 cephalexin [From Keflex] Allergy Hives Verified 01/28/18 18:07 morphine Allergy Hives Verified 01/28/18 18:07 mushroom Allergy Hives Verified 01/28/18 18:07 Sulfa (Sulfonamide Allergy Rash Verified 01/28/18 18:07 Antibiotics) enviromental Allergy Eyes Uncoded 01/28/18 18:07 Itchy/Swollen/Red/Watery Home Medications: Home Medications Ibuprofen 600 mg PO 01/28/18 [History] Levothyroxine Sodium 25 mcg PO 01/28/18 [History Confirmed 01/28/18] Sertraline HCl [Zoloft] 01/28/18 [History] diPHENhydraMINE PO* [Benadryl PO 25 MG TAB*] 01/28/18 [History] PMH/Surg Hx/FS Hx/Imm Hx Previously Healthy: No Neurological History: Seizures Other History Of: Negative For: Anticoagulant Therapy - Surgical History Surgical History: Yes Surgery Procedure, Year, and Place: AVM REPAIR (CLIPPED, THEN CLIP WAS REMOVED - SEE REPORTS). RT TEMPORAL LOBE IN 2008 [place] (removed scar tissue). 5 CSECTIONS. VNM simulater.07/2017 - Family History Known Family History: Positive: Cardiac Disease, Hypertension, Other - cancer Negative: Diabetes - Social History Occupation: Disabled Lives: With Family Alcohol Use: None Substance Use Type: Prescribed Substance Use Comment - Amount & Last Used: Ativan Smoking Status (MU): Former Smoker Have You Smoked in the Last Year: Yes - had of close relative on 2016 so smoked to cope Household Exposure Type: Cigarettes - Immunization History Most Recent Influenza Vaccination: 2015 Most Recent Tetanus Shot: 2014 Most Recent Pneumonia Vaccination: UNSURE Review of Systems Constitutional: Fever ENT: Dental Pain, Other - foul taste in her mouth Gastrointestinal: Vomiting Neurological: Other - seizure All Other Systems Reviewed And Are Negative: Yes Physical Exam Triage Information Reviewed: Yes Appearance: Well-Appearing, No Pain Distress, Well-Nourished Vital Signs: Initial Vital Signs Temp 97.9 F 01/28/18 17:58 Pulse 80 01/28/18 17:58 Resp 18 01/28/18 17:58 BP 99/65 01/28/18 17:58 Pulse Ox 99 01/28/18 17:58 Eyes: Positive: Conjunctiva Clear ENT: Positive: Hearing grossly normal, Pharynx normal, TMs normal Dental: Positive: Other: - Pt with mild edema left lower mandible pt with sutures in right area of #27-30 and sutures # 17-20 Pt with mild erythema and increased tenderness to buccal membrane left lower gumline No fluctance no drainage Dental Complaint Course/Dx - Course Course Of Treatment: Pt with increased dental pain, swelling following multiple teeth extraction from last sun. Pt reports bad oral taste. pt with erythema and edema left lower jaw. no fluctance or discharge appreciate. Will start abx - pt states has taked amoxicillin multiple times without difficulty or reaction. Pt does have Keflex allergy - "small rash". Will start Amox - pt 36 kg - 500mg BID. declined Rx for additional narcotic. rinse with warm, salt water several times a day. return precautions discussed. pt comfortable and in agreement with plan - Differential Dx/Diagnosis Provider Diagnoses: dental infection Discharge - Discharge Plan Condition: Stable Disposition: HOME Prescriptions: Amoxicillin PO (*) [Amoxicillin 500 MG CAP*] 500 mg PO Q12H #14 cap Patient Education Materials: Dental Abscess (ED) Referrals: Madhavi Mayorga MD [Primary Care Provider] - Additional Instructions: - take antibiotics as prescribed until gone - alternate your ibuprofen and Tylenol every 3hours for pain - gargle and spit with warm salt water 2-3 times a day - keep your appointment as scheduled with your oral surgeon later this week. - contact your oral surgeon, go to the emergency department or return with questions or concerns The documentation as recorded by the Derik weller Gabriel accurately reflects the service I personally performed and the decisions made by , Phuong Tian MD.
== END 2018-01-28 19:00 | disposition home or self-care (01) ==
LOC: UCEAST 17:49
DX: K04.7 Periapical abscess without sinus (principal); R50.9 Fever, unspecified; R11.10 Vomiting, unspecified; R56.9 Unspecified convulsions; Z88.5 Allergy status to narcotic agent; Z88.1 Allergy status to other antibiotic agents; Z88.2 Allergy status to sulfonamides; Z91.030 Bee allergy status; Z87.891 Personal history of nicotine dependence
CPT/HCPCS: 99212; G0463

== ENCOUNTER 2018-02-05 22:34 | Emergency (ER) | payer OTHER ==
[2018-02-05] MEDS ORDERED: NS 0.9% 1000 ML* 1,000 ML IV ONE (23:13)
[2018-02-05] MEDS ORDERED: LORazepam INJ* 2 MG/ML 1 ML VIAL IV ONE (23:13)
[2018-02-05] MEDS ORDERED: Metoclopramide IV* 5 MG/ML 2 ML VIAL IV SLOW PU ONE (23:15)
[2018-02-06 00:51] LABS: EGFR Non-African American 166.1 (>60)
[2018-02-06 01:07] LABS: ABS Basophils 0.1 10^3/ul (0-0.2); ABS Eosinophils 0.5 10^3/ul (0-0.6); ABS Lymphocytes 2.2 10^3/ul (1.0-4.8); ABS Monocytes 0.8 10^3/ul (0-0.8); ABS Nucleated RBC 0 10^3/ul; Eosinophil % 5.3 % (0-6); Hematocrit 31 % (35-47); Hemoglobin 10.6 g/dl (12.0-16.0); Lymphocyte % 22.6 % (25-47); Mean Corpuscular HGB Conc 34 g/dl (31-36); Mean Corpuscular Hemoglobin 31 pg (27-31); Mean Corpuscular Volume 92 fL (80-97); Mean Platelet Volume 7 um3 (7.4-10.4); Nucleated Red Blood Cells % 0.1; Platelet Count 265 10^3/ul (150-450); Red Cell Distribution Width 14 % (10.5-15); White Blood Count 9.6 10^3/ul (3.5-10.8)
[2018-02-06 02:06] LABS: Urine Appearance Cloudy; Urine Blood Negative (Negative); Urine Color Yellow; Urine Ketones Negative (Negative); Urine Protein Negative (Negative); Urine Specific Gravity 1.015 (1.010-1.030); Urine Urobilinogen Negative (Negative)
--- NOTE | 2018-02-06 02:41 | ED ---
Rahel Bolton Thomas, scribed for Marizol Chen MD on 02/06/18 at 0023 . Neurological HPI - HPI Summary HPI Summary: The patient is a 37 year old female with a history of ruptured AVM and two brain surgeries (one in 2008 and one in 2013). As a result, she has seizures with onset 2008. She reports a seizure that occurred yesterday. 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 She is on multiple antiseizure medications. Her neurologist is Dr. Coles. - History of Current Complaint Chief Complaint: EDSeizure Stated Complaint: SEIZURE Time Seen by Provider: 02/05/18 22:52 Hx Obtained From: Patient Hx Last Menstrual Period: non Onset/Duration: Started days ago - 1, Still Present Timing: Constant Onset Severity: Mild Current Severity: Mild Pain Intensity: 0 Pain Scale Used: 0-10 Numeric Character: Other: - Typical aura Frequency: Episodes x___ - 1 Alleviating: Nothing Related Hx: Seizure - Additional Pertinent History Primary Care Physician: CORAL - Allergy/Home Medications Allergies/Adverse Reactions: Allergies Allergy/AdvReac Type Severity Reaction Status Date / Time bee venom protein (honey bee) Allergy Hives Verified 01/28/18 18:07 cephalexin [From Keflex] Allergy Hives Verified 01/28/18 18:07 morphine Allergy Hives Verified 01/28/18 18:07 mushroom Allergy Hives Verified 01/28/18 18:07 Sulfa (Sulfonamide Allergy Rash Verified 01/28/18 18:07 Antibiotics) enviromental Allergy Eyes Uncoded 01/28/18 18:07 Itchy/Swollen/Red/Watery PMH/Surg Hx/FS Hx/Imm Hx Endocrine/Hematology History: Reports: Hx Thyroid Disease, Hx Anemia - IV iron tx Denies: Hx Anticoagulant Therapy, Hx Diabetes Cardiovascular History: Denies: Hx Congestive Heart Failure, Hx Hypertension, Hx Pacemaker/ICD Comment Only: Other Cardiovascular Problems/Disorders - Arteriovenous malformation - Sx repair in 2008. Right atrial enlargement. 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 RT TEMPORAL LOBE IN 2008 [place] (removed scar tissue). 5 CSECTIONS. VNM simulater.07/2017 Hx Anesthesia Reactions: No - Immunization History Date of Tetanus Vaccine: None Date of Influenza Vaccine: None Infectious Disease History: No Infectious Disease History: Denies: Hx Hepatitis, Hx Human Immunodeficiency Virus (HIV), Traveled Outside the US in Last 30 Days - Family History Known Family History: Positive: Cardiac Disease, Hypertension, Other - cancer Negative: Diabetes - Social History Alcohol Use: None Hx Substance Use: No Substance Use Type: Reports: None, Prescribed Substance Use Comment - Amount & Last Used: Ativan Hx Tobacco Use: Yes Smoking Status (MU): Former Smoker Have You Smoked in the Last Year: Yes - had of close relative on 2016 so smoked to cope Review of Systems Negative: Fever Neurological: Other - Aura, seizure, left-sided paralysis All Other Systems Reviewed And Are Negative: Yes Physical Exam - Summary Physical Exam Summary: VITAL SIGNS: Reviewed. GENERAL: Patient is a well-developed and nourished female who is lying comfortable in the stretcher. Patient is not in any acute respiratory distress. HEAD AND FACE: No signs of trauma. No ecchymosis, hematomas or skull depressions. No sinus tenderness. EYES: PERRLA, EOMI x 2, No injected conjunctiva, no nystagmus. EARS: Hearing grossly intact. Ear canals and tympanic membranes are within normal limits. MOUTH: Oropharynx within normal limits. NECK: Supple, trachea is midline, no adenopathy, no JVD, no carotid bruit, no c- spine tenderness, neck with full ROM. CHEST: Symmetric, no tenderness at palpation LUNGS: Clear to auscultation bilaterally. No wheezing or crackles. CVS: Regular rate and rhythm, S1 and S2 present, no murmurs or gallops appreciated. ABDOMEN: Soft, non-tender. No signs of distention. No rebound no guarding, and no masses palpated. Bowel sounds are normal. EXTREMITIES: FROM in all major joints, no edema, no cyanosis or clubbing. NEURO: Alert and oriented x 3. She has left hemiparalysis. Speech is normal and follows commands. SKIN: Dry and warm Triage Information Reviewed: Yes Vital Signs On Initial Exam: Initial Vitals Temp Pulse Resp BP Pulse Ox 98.9 F 106 20 125/83 100 02/05/18 22:37 02/05/18 22:37 02/05/18 22:37 02/05/18 22:37 02/05/18 22:37 Vital Signs Reviewed: Yes Diagnostics - Vital Signs Vital Signs Temp Pulse Resp BP Pulse Ox 02/05/18 23:24 16 02/05/18 23:00 105 19 113/72 95 02/05/18 22:44 17 02/05/18 22:42 125/83 02/05/18 22:37 98.9 F 106 20 125/83 100 - Laboratory Result Diagrams: 02/06/18 00:10 02/06/18 00:10 Lab Statement: Any lab studies that have been ordered have been reviewed, and results considered in the medical decision making process. - Radiology CXR Xray Interpretation: No Acute Changes - No acute process. Pending final report. Radiology Interpretation Completed By: ED Physician Re-Evaluation - Re-Evaluation First Eval Re-Evaluation Time: 02:22 Change: Improved Comment: Patient will be discharged. Course/Dx - Course Assessment/Plan: The patient is a 37 year old female with a history of ruptured AVM and two brain surgeries (one in 2008 and one in 2013). As a result, she has seizures with onset 2008. She reports a seizure that occurred yesterday. 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 She is on multiple antiseizure medications. In the ED course, the patient was given IV fluids, Ativan, and Reglan. Bloodwork was obtained. CXR shows no acute process. I spoke with Dr. Solorio, neurology, who was not able to give any recommendations regarding the patients care. He was objecting to giving the patient Ativan. He was reluctant to have any more discussion about the patient. The patient was treated with Ativan 1 mg and Reglan. The left -sided paralysis has resolved and she is back to her baseline. The patient is at this time feeling better and is asymptomatic. She is eating in the ED. The patient will be discharged home with follow up in one day with Dr. Coles, her neurologist. - Diagnoses Provider Diagnoses: Seizure / anxiety - Physician Notifications Discussed Care Of Patient With: Nadeem Solorio Time Discussed With Above Provider: 02:18 Instructed by Provider To: Other - I spoke with Dr. Solorio, neurology, who was not able to give any recommendations regarding the patients care. He was objecting to giving the patient Ativan. He was reluctant to have any more discussion about the patient. Discharge - Sign-Out/Discharge Documenting (check all that apply): Discharge - Discharge Plan Condition: Stable Disposition: HOME Patient Education Materials: Recurrent Seizures in Adults (ED), Anxiety (ED) Referrals: Leatha Coles MD [Medical Doctor] - 1 Day Additional Instructions: Follow up with Dr. Coles in one day. Return to the emergency department for any new or worsening symptoms. The documentation as recorded by the Rahel weller Thomas accurately reflects the service I personally performed and the decisions made by , Marizol Chen MD.
[2018-02-06 02:47] VITALS: BP 112/73
--- NOTE | 2018-02-06 07:37 | RAD ---
INDICATION: Seizure. COMPARISON: Comparison is made with the prior study from January 10, 2018. TECHNIQUE: A portable view of the chest was obtained. FINDINGS: Cardiac and mediastinal contours appear to be within normal limits. There is an implanted generator which projects over the left lung apex with leads extending into the neck on the left side. The lungs are clear. No pleural effusion is seen. IMPRESSION: NO EVIDENCE FOR ACUTE DISEASE.
== END 2018-02-06 02:45 | disposition home or self-care (01) ==
LOC: ED 22:34
DX: R56.9 Unspecified convulsions (principal); F41.9 Anxiety disorder, unspecified; Z87.891 Personal history of nicotine dependence; Z86.69 Personal history of other diseases of the nervous system and sense organs; Z98.890 Other specified postprocedural states
CPT/HCPCS: 36415; 71045; 80053; 81003; 82550; 83605; 83735; 84702; 85025; 96374; 96375; 99285; J2060; J2765

== ENCOUNTER 2018-03-28 03:34 | Emergency (ER) | payer OTHER ==
[2018-03-28] MEDS ORDERED: Ondansetron ODT TAB* 4 MG PO ONE (04:45)
[2018-03-28] MEDS ORDERED: Ondansetron ODT TAB* 4 MG ONE (04:46)
[2018-03-28 04:53] LABS: ABS Basophils 0 10^3/ul (0-0.2); ABS Eosinophils 0.2 10^3/ul (0-0.6); ABS Lymphocytes 1.8 10^3/ul (1.0-4.8); ABS Monocytes 0.8 10^3/ul (0-0.8); ABS Neutrophils 5.6 10^3/ul (1.5-7.7); ABS Nucleated RBC 0 10^3/ul; Eosinophil % 2.8 % (0-6); Hematocrit 38 % (35-47); Hemoglobin 12.7 g/dl (12.0-16.0); Lymphocyte % 21.5 % (25-47); Mean Corpuscular HGB Conc 34 g/dl (31-36); Mean Corpuscular Hemoglobin 30 pg (27-31); Mean Corpuscular Volume 90 fL (80-97); Mean Platelet Volume 7.2 um3 (7.4-10.4); Nucleated Red Blood Cells % 0; Platelet Count 213 10^3/ul (150-450); Red Blood Count 4.19 10^6/ul (4.0-5.4); Red Cell Distribution Width 13 % (10.5-15); White Blood Count 8.4 10^3/ul (3.5-10.8)
[2018-03-28 05:06] LABS: INR 0.91 (0.77-1.02)
--- OUTSIDE RECORDS SUMMARY | 2018-03-28 05:11 | XMS REPORT ---
:1980 External Reference #:[id number] Author Organization [facility] Address [address] [address] Phone [phone] Care Team Providers Name Role Phone Madhavi Mayorga MD Primary Care Physician Unavailable Payers Type Date Identification Numbers Payment Provider Subscriber Commercial Effective: Policy Number: [id number] [employer] Selena Diane 2016 Medicaid PayID: [id number] [address] [place] [address] Commercial Expires: 2017 Policy Number: [employer] Selena Matos [id number] [employer] PayID: [id number] [address] [place] [address] Problems Date Description Provider Status Onset: 11/25/2014 [...] site Leatha Coles MD Active unspecified Onset: 12/04/2017 Weight decreased Leatha Coels MD Active Onset: 09/18/2017 Migraine with typical aura Leatha [...] Form Strength Qnty SIG Indications Ordering Provider Sertraline HCL 12/07 Active Tablets 50mg 60tab taper as F41.9 Lucy s directed Guadalupe, to 2 M.D. tablets by mouth every day Magnesium Oxide 09/18 Active Tablets 400mg 30tab 1 by G43.109 Leatha Coles s mouth MD every day Naproxen 09/18 Active Tablets 500mg 60tab 1 up to G43.109 Leatha Coles s twice a MD day as needed for migraine. Avoid using more than 2 to 3 times per week Briviact 07/28 Active Tablets 100mg 60tab 1 tablet Leatha Coles s twice MD daily Citalopram 04/23 Active Tablets 20mg 60tab 2 by F41.9 Leatha Coles Hydrobromide s mouth MD daily in the morning Onfi 04/12 Active Tablets 10mg 45tab 1/2 tab Leatha Coles s every MD morning and 1 tab by mouth every night at bedtime Acetaminophen Active Tablets 325mg 120ta take 2 Unknown /0000 bs tabs prn Vitamin D Active Tablets 2000Units 1 in Unknown (Cholecalcifero / am,1000 l) units at night Ra Active Tablets ER take 1 Unknown B-Complex/Vitam / tablet in C CR once daily Potassium Active Tablets ER 10Meq take 1 Unknown Chloride ER / tablet by mouth once daily Oxcarbazepine Active Tablets 300mg 90tab 1.5 tabs Leatha Coles s po qam MD and 2 tabs p qpm Ferrous Sulfate Active Tablets 325(65Fe) 1 tab po Unknown / mg qd Levothyroxine Active Tablets 25mcg 1 by Unknown Sodium /0000 mouth every day Dicyclomine HCL Active Capsules 10mg one Unknown /0000 capsule tid Klonopin 02/11 Hx Tablets 0.5mg 6tabs 1 tablet by mouth MD Lyndsey - twice a Hydroxyzine HCL 12/04 Hx Tablets 25mg 60tab 1/2 to 1 Leatha Love s tablet as MD - needed 12/04 for anxiety up to twice a day Sertraline HCL 12/04 Hx Tablets 25mg 60tab 1 by F41.9 Leatha Coles s mouth MD - every day 12/07 for two weeks, then 2 tabs by mouth daily Vicodin 10/10 Hx Tablets 5-300mg 3tabs take 1 po Lucy q 6 Cowdery, - hours, as M.D. 12/03 needed for pain Ondansetron 08/21 Hx Tablets 4mg 30tab 1 up to R11.0 Leatha Coles Dispers s three MD - times a 12/03 day needed for nausea Briviact 07/29 Hx Tablets 50mg 32tab 2 by Leatha Coles s mouth MD - twice 08/20 daily Briviact 06/25 Hx Tablets 50mg 28tab 1 by Leatha Coles s mouth MD - twice 07/28 Clonazepam 06/25 Hx Tablets 0.125mg 35tab 1 twice a G40.219 Leatha Coles Dispers s day for 2 MD - weeks 07/23 then once a day for 2 weeks then stop. Briviact 06/25 Hx Tablets 50mg 60tab 1 by Leatha Coles s mouth MD - twice 07/28 daily Levetiracetam 05/28 Hx Tablets 1000mg 60tab 2 tabs by G40.219 Leatha Coles s mouth MD - twice a Clonazepam 04/23 Hx Tablets 0.5mg 7tabs 1/2 tab Dispers po bid Chele Ortega - 12/03 Lorazepam 02/13 Hx Tablets 0.5mg 30tab 1 tablet Leatha Coles s twice a MD - day as 05/21 needed for aura Fycompa 02/09 Hx Tablets 2mg 120ta 1 tablet Leatha Coles bs at MD - bedtime 04/19 x1 week then 2 tablets at bedtime x1 week then 3 tablets at bedtime [id number] then 4 tablets at bedtime Citalopram 01/22 Hx Tablets 10mg 60tab take 1 by F41.9 Leatha Coels Hydrobromide s mouth - once 04/23 daily for 1 week then 2 by mouth once daily Phenytoin 10/09 Hx Capsules 100mg 90cap 3 cap by Mayte Christie Extended s mouth Ronn[place], - every M.D. 10/30 Aptiom 01/10 Hx Tablets 400mg 60tab 1 in am G40.211 Leatha Coles s MD - 12/20 Folic Acid 11/25 Hx Tablets 1mg 30tab 1 by V22.2 Lucy s mouth Gu[place]upe, - every day M.D. 08/03 Oxcarbazepine 08/01 Hx Suspension 300mg/5ML 750ml 5ml by Leatha Coles mouth - twice 10/31 Folic Acid 09/02 Hx Tablets 1mg 60tab take two s by mouth [place]upe, - each day M.D. 10/13 Levetiracetam 08/21 Hx Solution 100mg/ml 1200u take 4 Leatha Coles nits teaspoons - in the Am 05/28 and teaspoons in the PM, shake before using Flintstones Hx Chewtabs 60mg Unknown Complete /0000 - 10/13 Vitamin B12 Hx Tablets ER 1000mcg 30tab 1 po qd Unknown / s - 10/13 Lorazepam Hx Tablets 1mg 30tab 1 by Leatha Coles, s mouth - three 02/13 times day as needed for aura Nitrofurantoin Hx Capsules 100mg 14cap 1 cap po Unknown Monohydrate / s bid x 7 - days 12/15 Doxycycline Hx Capsules 100mg Stevanovic, Hyclate / MD Madhavi - 03/19 Motrin Pilo 00 Hx Suspension 100mg/ml 3 tsp po Unknown Strength /0000 prn - 08/03 Pepto-Bismol Hx Suspension 262mg/15M 120ml as needed Unknown /0000 L - 08/03 Flintstones Hx Chewtabs daily Unknown Plus Iron /0000 - 10/31 Fish Oil Hx Capsules 300mg 1 by Unknown /0000 mouth - every day 08/03 Levothyroxine Hx Tablets 75mcg 1 by Unknown Sodium /0000 mouth - every day 08/03 Hydrocodone-Jefry Hx Tablets 5-325mg agusto Romerophen / Marline Lopez MD 12/21 Penicillin V Hx Tablets 500mg 4x a day Unknown Potassium /0000 till out - 09/07 Clindamycin HCL Hx Capsules 150mg one every Unknown /0000 6 hours - 08/20 Hydrocodone-Jefry Hx Tablets 5-325mg 1 tab by Unknown taminophen / mouth - every 4- 09/07 6 hours /2016 as needed pain Hydrocortisone 00 Hx Cream 1% use Unknown /0000 sparingly - twice a 09/07 day x weeks Vital Signs Date Vital Result Comment 03/05/2018 Height 59 inches 4'11" Weight 82.38 lb Heart Rate 76 /min BP Systolic 96 mmHg BP Diastolic 62 mmHg BMI (Body Mass Index) 16.6 kg/m2 12/04/2017 Height 59 inches 4'11" Weight 79.50 lb Heart Rate 68 /min BP Systolic Sitting 108 mmHg BP Diastolic Sitting 62 mmHg Respiratory Rate 15 /min BMI (Body Mass Index) 16.1 kg/m2 10/31/2017 Height 59 inches 4'11" Weight 84.00 [...] Test Result H/L Range Note Laboratory test finding 12/06/2017 TSH (Thyroid Stim 6.16 mcIU/mL High 0.34-5.60 Horm) Free T4 (Free Thyroxine) 0.59 ng/dL Low 0.61-1.12 Trileptal (Oxcarbazepine) 13 g/mL 3 - 35 1 Clobazam Frisium Level 12/06/2017 Clobazam 133 ng/mL 30-300 Desmethylclobazam 1140 ng/mL 300-3000 2 CBC Auto Diff 07/18/2017 White Blood Count [...] % 0.1 Inr/Protime 07/18/2017 Inr 0.92 0.89-1.11 Laboratory test 07/18/2017 Levetiracetam (Keppra) <2.0 g/mL 3 finding Trileptal (Oxcarbazepine) 35 g/mL 3 - 35 4 Urine Culture And 07/18/2017 Urine Culture SEE RESULT BELOW 5 Sensitivities Laboratory test finding 07/18/2017 Partial Thrombo 32.2 seconds 26.0- 36.3 Time PTT Urinalysis Profile 07/18/2017 Urine Color Yellow Urine Appearance Cloudy Urine Specific Smith 1.015 1.010-1.030 Urine pH 5.0 5-9 Urine [...] Cell Present Absent Laboratory test finding 07/18/2017 Phosphorus 3.3 mg/dL 2.5-5.0 Magnesium 2.1 mg/dL 1.9-2.7 Thyroxine 4.33 g/mL Low 6.09-12.23 TSH (Thyroid Stim Horm) 3.84 mcIU/mL 0.34-5.60 Prolactin 9.4 ng/mL 1.0-25.0 Vitamin D Total 25(Oh) 55.0 ng/mL High 30-50 Comp Metabolic Panel 07/18/2017 Sodium 137 mmol/L [...] Egfr Non- 113.8 >60 Egfr 146.3 >60 6 Laboratory test finding 06/26/2017 Magnesium 2.0 mg/dL 1.9-2.7 CBC Auto Diff 06/26/2017 White Blood Count [...] 06/26/2017 Lactic Acid 0.4 mmol/L Low 0.5-2.0 7 Comp Metabolic Panel 06/26/2017 Sodium 131 mmol/L [...] Egfr Non- 143.7 >60 Egfr 184.8 >60 8 Potassium 4.1 mmol/L 3.5-5.0 Anion Gap 6 mmol/L 2-11 Ast 19 U/L 13-39 CBC Auto Diff 05/27/2017 White Blood Count [...] Egfr Non- 134.2 >60 Egfr 172.6 >60 9 Laboratory test finding 05/27/2017 Magnesium 2.0 mg/dL 1.9-2.7 Laboratory test finding 05/20/2017 Lactic Acid 1.0 mmol/L 0.5-2.0 10 CBC Auto Diff 05/20/2017 White Blood Count [...] Egfr Non- 118.3 >60 Egfr 152.1 >60 11 Laboratory test finding 05/20/2017 Magnesium 2.2 mg/dL 1.9-2.7 Carbamazepine (Tegretol) 2.0 g/mL Low 4.0-12.0 Inr/Protime 05/20/2017 Inr 0.90 0.89-1.11 Laboratory test finding 05/20/2017 Levetiracetam (Keppra) 28.8 g/mL 12 CBC Auto Diff 05/05/2017 White Blood Count [...] Color Yellow Urine Appearance Cloudy Urine Specific Smith 1.013 1.010-1.030 Urine pH 7.0 5-9 Urine Urobilinogen Negative Negative Urine Ketones Negative Negative Urine Protein Negative Negative Urine Leukocytes Trace Negative Urine Blood Negative Negative * * Negative 13 Urine Nitrite Negative Negative Urine Bilirubin Negative [...] Egfr Non- 140.4 >60 Egfr 180.6 >60 14 Laboratory test finding 05/05/2017 Magnesium 1.9 mg/dL 1.9-2.7 TSH (Thyroid Stim Horm) 1.80 mcIU/mL 0.34-5.60 Urine Culture And 05/05/2017 Urine Culture SEE RESULT 15 Sensitivities BELOW Laboratory test finding 05/05/2017 Levetiracetam (Keppra) 36.5 g/mL 16 Inr/Protime 04/29/2017 Inr 0.91 0.89-1.11 CBC Auto [...] finding 04/29/2017 Lactic Acid 1.4 mmol/L 0.5-2.0 17 Comp Metabolic Panel 04/29/2017 Sodium 136 mmol/L [...] Egfr Non- 125.8 >60 Egfr 161.8 >60 18 Laboratory test finding 04/29/2017 Magnesium 2.0 mg/dL 1.9-2.7 Levetiracetam (Keppra) 66.4 g/mL 19 Trileptal (Oxcarbazepine) 28 g/mL 3 - 35 20 Laboratory test finding 04/27/2017 Levetiracetam (Keppra) 46.6 g/mL 21 Trileptal (Oxcarbazepine) 37 g/mL 3 - 35 22 Urine Culture And 04/27/2017 Urine Culture SEE RESULT BELOW 23 Sensitivities Laboratory test finding 04/27/2017 Magnesium 2.1 mg/dL 1.9-2.7 Creatine Kinase(CK) 51 U/L 10-223 Alcohol < 10 mg/dL <10 Urinalysis Profile 04/27/2017 Urine Color Yellow Urine Appearance Cloudy Urine Specific Smith 1.018 1.010-1.030 Urine pH 7.0 5-9 Urine Urobilinogen Negative Negative Urine Ketones Negative Negative Urine Protein Negative Negative Urine Leukocytes Trace Negative Urine Blood Negative Negative * * Negative 24 Urine Nitrite Negative Negative Urine Bilirubin Negative Negative Urine Glucose Negative Negative Urine White Blood Cell Trace(0-5/hpf) Absent Urine Red Blood Cell Trace(0-2/hpf) Absent Urine Bacteria Absent Absent Urine Squamous Epithelial Cell Present Absent Urine Amorphous Crystals Present Absent Inr/Protime 04/27/2017 Inr 0.93 0.89-1.11 Laboratory test 04/27/2017 Lactic Acid 0.6 mmol/L 0.5-2.0 25 finding Urine Drug SCR ED 04/27/2017 Amphetamine Ur Screen None Detected None Detect & [facility] Barbiturates Urine Screen None Detected None Detect Benzodiazepine Urine Screen Presumptive Posi <SEE NOTE> None Detect 26 Urine Cannabinoids Screen None Detected None Detect Urine Cocaine Screen None Detected None Detect Urine Opiates Screen Presumptive Posi <SEE NOTE> None Detect 27 Urine Phencyclidine Screen None Detected None Detect 28 CBC Auto Diff 04/27/2017 White Blood Count [...] Egfr Non- 118.3 >60 Egfr 152.1 >60 29 Comp Metabolic Panel 04/21/2017 Sodium 137 mmol/L [...] Egfr Non- 98.5 >60 Egfr 126.6 >60 30 Laboratory test finding 04/21/2017 Magnesium 2.2 mg/dL 1.9-2.7 Creatine Kinase(CK) 66 U/L 10-223 C Reactive Protein 1.60 mg/L < 5.00 31 HCG < 0.60 mIU/mL 32 CBC Auto Diff 04/21/2017 White Blood Count [...] finding 04/21/2017 Lactic Acid 1.0 mmol/L 0.5-2.0 33 Levetiracetam (Keppra) 35.0 g/mL 34 Trileptal (Oxcarbazepine) 28 g/mL 3 - 35 35 Urinalysis Profile 04/21/2017 Urine Color Yellow Urine Appearance Cloudy Urine Specific Smith 1.032 High 1.010-1.030 Urine pH 5.0 5-9 [...] test finding 03/19/2017 Clotest SEE RESULT BELOW 36 Laboratory test finding 11/23/2016 Trileptal 11 g/mL 3 - 35 37 (Oxcarbazepine) Levetiracetam (Keppra) 63.6 g/mL 38 Laboratory test finding 11/24/2015 Levetiracetam (Keppra) 21.7 g/mL 39 Urinalysis Profile 07/14/2015 Urine Color Yellow Urine Appearance Cloudy Urine Specific Smith 1.017 1.010-1.030 Urine pH 6.0 5-9 Urine [...] 07/14/2015 Urine Culture And SEE RESULT BELOW 40 finding Sensitivities Laboratory test 07/10/2015 Lactic Acid 1.4 mmol/L 0.5-2.2 finding Laboratory test 07/10/2015 C Reactive Protein 106.54 mg/L High < 5.00 41 finding Inr/Protime 07/10/2015 Inr 0.83 0.78-1.07 Laboratory test 07/10/2015 Partial Thrombo Time 28.1 seconds 26.0-36.3 finding PTT Urinalysis Profile 07/10/2015 Urine Color Yellow Urine Appearance Cloudy Urine Specific Smith 1.017 1.010-1.030 Urine pH 5.0 5-9 Urine [...] 07/10/2015 Urine Culture And SEE RESULT BELOW 42 Sensitivities Blood Culture SEE RESULT BELOW 43 Comp Metabolic Panel 07/10/2015 Sodium 138 mmol/L [...] Egfr Non- 152.6 >60 Egfr 196.3 >60 44 CBC Auto Diff 07/10/2015 White Blood Count [...] Egfr Non- 201.1 >60 Egfr 258.7 >60 45 Laboratory test finding 06/05/2015 Creatine Kinase(CK) 72 U/L 10-223 Troponin-I (TnI) 0.00 ng/mL <0.03 46 B-Type Natriuretic Peptide BNP 104 pg/mL High 47 Laboratory test finding 01/12/2015 Hemoglobin A1c 4.9 % Less than 6.0 48 , 49 Levetiracetam 16.8 g/mL 48, 50 Oxcarbazepine 19 g/mL 3 - 35 48, 51 Syphilis Screen 01/12/2015 Syphilis IgG TNP Nonreactive 48 RPR Nonreactive Nonreactive 48 RPR Titer TNP 48 Pediatric/Maternal YES 48 Laboratory test 01/12/2015 Hepatitis B Surface Nonreactive Nonreactive 48, 52 finding Antigen HIV 1/2 AB Evaluation 01/12/2015 HIV 1 2 Antibody Nonreactive Nonreactive 48, 53 CBC No Diff 01/12/2015 White Blood Count 8.5 10^3/uL 4.8-10.8 48 Red Blood Count 4.10 10^6/uL 4.0-5.4 48 Hemoglobin 12.6 g/dL 12.0-16.0 48 Hematocrit 37 % 35-47 48 Mean Corpuscular Volume 90 fL 80-97 48 Mean Corpuscular Hemoglobin 31 pg 27-31 48 Mean Corpuscular HGB Conc 34 g/dL 31-36 48 Red Cell Distribution Width 15 % 10.5-15 48 Platelet Count 245 10^3/uL 150-450 48 Mean Platelet Volume 9 um3 7.4-10.4 48 Laboratory test finding 01/12/2015 Rubella Screen Equivocal IU/mL Immune 48, 54 Type & Screen 01/12/2015 Patient Blood Type O Positive 48 Antibody Screen NEGATIVE 48 Laboratory test finding 04/03/2014 Levetiracetam 8.5 g/mL 55, 56 Oxcarbazepine 23 g/mL 3 - 35 55, 57 Comp Metabolic Panel 04/03/2014 Sodium 138 mmol/L 133-145 55 Potassium 4.0 mmol/L 3.7-5.6 55 Chloride 106 mmol/L 101-111 55 Co2 Carbon Dioxide 27 mmol/L 22-32 55 Anion Gap 5 mmol/L 2-11 55 Glucose 85 mg/dL 70-100 55 Blood Urea Nitrogen 11 mg/dL 6-24 55 Creatinine 0.55 mg/dL 0.51-0.95 55 BUN/Creatinine Ratio 20.0 8-20 55 Calcium 9.3 mg/dL 8.6-10.3 55 Total Protein 6.1 g/dL Low 6.4-8.9 55 Albumin 4.1 g/dL 3.2-5.2 55 Globulin 2.0 g/dL 2-4 55 Albumin/Globulin Ratio 2.1 1-3 55 Total Bilirubin 0.20 mg/dL 0.2-1.0 55 Alkaline Phosphatase 66 U/L 34-104 55 Alt 9 U/L 7-52 55 Ast 13 U/L 13-39 55 Egfr Non- 128.1 >60 55 Egfr 164.7 >60 55, 58 Laboratory test finding 01/28/2014 Inr 0.96 0.85-1.06 [...] Low 11-307 Vitamin B12 319 pg/mL 180-914 59 Laboratory test finding 12/01/2013 Levetiracetam 30.3 g/mL 60 Oxcarbazepine 29 g/mL 3 - 35 61 Laboratory test finding 10/20/2013 Serum Negative Negative 62 Blood Culture (SEE NOTE) 63 CBC Auto Diff 10/20/2013 White Blood Count [...] 0.1 Inr/Protime 10/20/2013 Inr 1.09 High 0.85-1.06 64 Laboratory test finding 10/20/2013 Activated Partial 31.6 seconds 24.0- 36.1 65 Thrombo Time Comp Metabolic Panel 10/20/2013 Sodium [...] Egfr Non- 97.0 >60 Egfr 124.7 >60 66 Laboratory test finding 10/20/2013 Lactic Acid 1.0 mmol/L 0.5-1.6 HIV 1 2 AB Self Referred Nonreactive Nonreactive 67 Blood Culture (SEE NOTE) 68 Laboratory test finding 09/18/2013 Levetiracetam 49.6 g/mL 69 CBC Auto Diff 2013 White Blood Count [...] Egfr Non- 97.0 >60 Egfr 124.7 >60 70 Laboratory test finding 08/12/2013 Serum Negative Negative 71 CBC Auto Diff 08/12/2013 White Blood Count [...] Egfr Non- 73.0 >60 Egfr 93.9 >60 72 Laboratory test finding 08/12/2013 TSH (Thyroid Stimulating 1.87 miu/mL 0.34-5.60 Horm) C Reactive Protein < 0.5 mg/dL Less than 0.5 Creatine Kinase 51 U/L 0-200 Levetiracetam 13.5 g/mL 73 Urinalysis 08/12/2013 Urine Color Yellow Urine Appearance Turbid Urine Specific Smith 1.024 1.010-1.030 Urine Esterase Negative Negative Urine Nitrate Negative Negative Urine Urobilinogen Negative E.U./dL Negative Urine Protein Negative mg/dL Negative Urine pH 6.5 5-9 Urine Blood Negative Negative Urine Ketones Negative mg/dL Negative Urine Bilirubin Negative Negative Urine Glucose Negative mg/dL Negative Urinalysis 08/06/2013 Urine Color Yellow Urine Appearance Clear Urine Specific Smith 1.016 1.010-1.030 Urine Esterase Negative Negative Urine Nitrate Negative Negative Urine Urobilinogen Negative E.U./dL Negative Urine Protein Negative mg/dL Negative Urine pH 8.0 5-9 Urine Blood Negative Negative Urine Ketones Negative mg/dL Negative Urine Bilirubin Negative Negative Urine Glucose Negative mg/dL Negative Laboratory test finding 08/06/2013 Levetiracetam 18.2 g/mL 74 Oxcarbazepine 6 g/mL 3 - 35 75 Oncology CBC Auto Diff 07/15/2013 White Blood [...] Laboratory test finding 07/15/2013 Cell Morphology 1+ 76 Manual Differential 06/07/2013 Neutrophil % 48 % [...] Laboratory test finding 06/07/2013 Levetiracetam 25.5 g/mL 77 CBC Auto Diff 06/07/2013 White Blood Count [...] 0-0.2 Abs Nucleated RBC 0 10^3/uL 1 ADDITIONAL INFORMATION This test was developed and its performance characteristics determined by [facility] in a manner consistent with CLIA requirements. This test has not been cleared or approved by the U.S. Food and Drug Administration. Test Performed by: [facility] [employer] - [facility] [address] [place] [id number] 2 This test was developed and its performance characteristics determined by [facility]. It has not been cleared or approved by the Food and Drug Administration. Test Performed by: [employer] [address] [place] [id number] 3 REFERENCE VALUE 12.0 - 46.0 ADDITIONAL INFORMATION This test was developed and its performance characteristics determined by [facility] in a manner consistent with CLIA requirements. This test has not been cleared or approved by the U.S. Food and Drug Administration. Test Performed by: [facility] [employer] - [facility] [address] [place] [address] 4 ADDITIONAL INFORMATION This test was developed and its performance characteristics determined by [facility] in a manner consistent with CLIA requirements. This test has not been cleared or approved by the U.S. Food and Drug Administration. Test Performed by: [facility] - [address] [address] SEE RESULT BELOW Name: SELENA DIANE : [address]: Jackson VALE Acct: [id number] Unit: [id number] AGE: 36 Location: LAB Re07/18/17 SEX: F Status: REG REF SPEC: [id number] TERRENCE: 07/18/[address]: Jackson VALEP REQ: [id number] RECD: 07/18/17 STATUS: ANDERSON AMEZQUITA DR: Madhavi Mayorga MD PC _ SOURCE: URINE SPDESC: ORDERED: Urine Culture Procedure Result Reported Site Urine Culture Final 07/19/17- 1439 ML No Growth (<1,000 CFU/mL) * ML - MAIN LAB ([facility]) . END OF REPORT * ML=Testing performed at Main Lab DEPARTMENT OF PATHOLOGY, [address] [place] [address] Navneet Drake M.D. Director [facility] # [id number] 6 Because ethnic data is not always [...] 5 Kidney failure <15 (or dialysis) 7 [facility] Severe Sepsis and Septic Shock Management Bundle Measure requires all lactic acids initially measuring >2.0 mmol/L be repeated. 8 Because ethnic data is not always readily [...] 15-29 5 Kidney failure <15 (or dialysis) 9 Because ethnic data is not always [...] 5 Kidney failure <15 (or dialysis) 10 [facility] Severe Sepsis and Septic Shock Management Bundle Measure requires all lactic acids initially measuring >2.0 mmol/L be repeated. 11 Because ethnic data is not always readily [...] 15-29 5 Kidney failure <15 (or dialysis) 12 REFERENCE VALUE 12.0 - 46.0 ADDITIONAL INFORMATION This test was developed and its performance characteristics determined by [facility] in a manner consistent with CLIA requirements. This test has not been cleared or approved by the U.S. Food and Drug Administration. Test Performed by: [facility] [place] [address] 13 *Ascorbic acid is present which may interfere with detection of blood. 14 Because ethnic data is not always readily [...] 15-29 5 Kidney failure <15 (or dialysis) 15 SEE RESULT BELOW Name: SELENA DIANE : [address]: Jackie Snow MD Acct: [id number] Unit: [id number] AGE: 36 Location: ED Re05/05/17 SEX: F Status: DEP ER SPEC: [id number] TERRENCE: 05/05/[address]: Jackie Snow MD REQ: [id number] RECD: 05/05/17 STATUS: ANDERSON AMEZQUITA DR: Leatha Coles MD _ SOURCE: URINE SPDESC: ORDERED: Urine Culture Procedure Result Reported Site Urine Culture Final 05/06/17- 1626 ML No growth of clinically significant organisms * ML - [facility] LAB ([facility]) . END OF REPORT * ML=Testing performed at Main Lab DEPARTMENT OF PATHOLOGY, [address] [place] [address] Navneet Drake M.D. Director [facility] # [id number] 16 REFERENCE VALUE 12.0 - 46.0 ADDITIONAL INFORMATION This test was developed and its performance characteristics determined by [facility] in a manner consistent with CLIA requirements. This test has not been cleared or approved by the U.S. Food and Drug Administration. Test Performed by: [facility] [place] [address] 17 [facility] Severe Sepsis and Septic Shock Management Bundle Measure requires all lactic acids initially measuring >2.0 mmol/L be repeated. 18 Because ethnic data is not always readily [...] 15-29 5 Kidney failure <15 (or dialysis) 19 REFERENCE VALUE 12.0 - 46.0 ADDITIONAL INFORMATION This test was developed and its performance characteristics determined by [facility] in a manner consistent with CLIA requirements. This test has not been cleared or approved by the U.S. Food and Drug Administration. Test Performed by: [facility] - [address] [address] 20 ADDITIONAL INFORMATION This test was developed and its performance characteristics determined by [facility] in a manner consistent with CLIA requirements. This test has not been cleared or approved by the U.S. Food and Drug Administration. Test Performed by: [facility] - [address] [address] 21 REFERENCE VALUE 12.0 - 46.0 ADDITIONAL INFORMATION This test was developed and its performance characteristics determined by [facility] in a manner consistent with CLIA requirements. This test has not been cleared or approved by the U.S. Food and Drug Administration. Test Performed by: [facility] - [address] [address] 22 ADDITIONAL INFORMATION This test was developed and its performance characteristics determined by [facility] in a manner consistent with CLIA requirements. This test has not been cleared or approved by the U.S. Food and Drug Administration. Test Performed by: [facility] - [address] [address] 23 SEE RESULT BELOW Name: SELENA DIANE : [address]: Flory Lei MD Acct: [id number] Unit: [id number] AGE: 36 Location: ED Re04/27/17 SEX: F Status: DEP ER SPEC: [id number] TERRENCE: 04/27/[address]: Flory Lei MD REQ: [id number] RECD: 04/27/17 STATUS: ANDERSON AMEZQUITA DR: Leatha Coles MD _ SOURCE: URINE SPDESC: ORDERED: Urine Culture Procedure Result Reported Site Urine Culture Final 04/30/17- 08 ML Organism 1 ESCHERICHIA COLI [place] Count 25-50,000 (Moderate) CFU/ML 1. ESCHERICHIA COLI [...] antibiotic reporting. * ML - MAIN LAB ([facility]) . END OF REPORT * ML=Testing performed at Main Lab DEPARTMENT OF PATHOLOGY, [address] [place] [address] Navneet Drake M.D. Director [facility] # [id number] 24 *Ascorbic acid is present which may interfere with detection of blood. 25 [facility] Severe Sepsis and Septic Shock Management Bundle Measure requires all lactic acids initially measuring >2.0 mmol/L be repeated. 26 Presumptive Positive Presumptive positive results are unconfirmed. 27 Presumptive Positive Presumptive positive results are unconfirmed. 28 The urine specimen was tested at the listed cutoffs: Drug class test level (ng/mL) Amphetamines 500 Barbiturates 200 Benzodiazepine metabolites 200 Cocaine metabolites 150 Cannabinoids 50 Opiates 300 Pcp 25 Specimen was received without chain of custody. Results should be used for medical purposes only. 29 Because ethnic data is not always readily [...] 15-29 5 Kidney failure <15 (or dialysis) 30 Because ethnic data is not always readily [...] 15-29 5 Kidney failure <15 (or dialysis) 31 Acute inflammation: >10.00 32 <5.0 Negative 5.0 - 25.0 Indeterminate (Repeat testing recommended after 72 hours) >25.0 Positive Perimenopausal women can display HCG levels of up to 20 mIU/mL 33 [facility] Severe Sepsis and Septic Shock Management Bundle Measure requires all lactic acids initially measuring >2.0 mmol/L be repeated. 34 REFERENCE VALUE 12.0 - 46.0 ADDITIONAL INFORMATION This test was developed and its performance characteristics determined by [facility] in a manner consistent with CLIA requirements. This test has not been cleared or approved by the U.S. Food and Drug Administration. Test Performed by: [facility] - [address] [address] 35 ADDITIONAL INFORMATION This test was developed and its performance characteristics determined by [facility] in a manner consistent with CLIA requirements. This test has not been cleared or approved by the U.S. Food and Drug Administration. Test Performed by: [facility] - [place] [employer] [address] [address] 36 SEE RESULT BELOW Name: ROXISELENA Shawna : [address]: Jae George MD Acct: [id number] Unit: [id number] AGE: 36 Location: ENDO Re03/19/17 SEX: F Status: REG REF SPEC: [id number] TERRENCE: 03/19/17-[address] [facility] [address]: Jae George MD REQ: [id number] RECD: 03/19/17 STATUS: COMP [facility] DR: Leatha Mayorga MD PC _ SOURCE: GAS ANTRUM SPDESC: ORDERED: Clotest Procedure Result Reported Site Clotest Final 03/20/17714 ML Clotest Negative * ML - MAIN LAB ([facility]) . END OF REPORT * ML=Testing performed at Main Lab DEPARTMENT OF PATHOLOGY, [address] [place] [address] Navneet Drake M.D. Director [facility] # [id number] 37 ADDITIONAL INFORMATION This test was developed and its performance characteristics determined by [facility] in a manner consistent with CLIA requirements. This test has not been cleared or approved by the U.S. Food and Drug Administration. Test Performed by: [facility] [place] [address] Electric Welder: Matti Gould II, M.D., Ph.D. 38 REFERENCE VALUE 12.0 - 46.0 ADDITIONAL INFORMATION This test was developed and its performance characteristics determined by [facility] in a manner consistent with CLIA requirements. This test has not been cleared or approved by the U.S. Food and Drug Administration. Test Performed by: [facility] [place] [address] Electric Welder: Matti Gould II, M.D., Ph.D. 39 REFERENCE VALUE 12.0 - 46.0 Test Performed by: [facility] [place] [address] Electric Welder: Matti Gould II, M.D., Ph.D. 40 SEE RESULT BELOW Name: SELENA DIANE : [address]: Matti Romero MD Acct: [id number] Unit: [id number] AGE: 34 Location: ED Re07/14/15 SEX: F Status: DEP ER SPEC: [id number] TERRENCE: 07/14/[address] [facility] [address]: Matti Romero MD REQ: [id number] RECD: 07/14/15 STATUS: ANDERSON [facility] DR: Madhavi Mayorga MD PC Lucy Butcher MD _ [facility] ORDERED: Urine Culture Procedure Result Verified Site Urine Culture Final 07/16/15- 0950 ML Organism 1 ESCHERICHIA COLI [place] Count >100,000 (Many) CFU/ML 1. ESCHERICHIA COLI [...] antibiotic reporting. * ML - MAIN LAB ([facility]1) . END OF REPORT * ML=Testing performed at Main Lab DEPARTMENT OF PATHOLOGY, [address] [place] [address] Navneet Drake M.D. Director [facility] # [id number] 41 Acute inflammation: >10.00 42 SEE RESULT BELOW Name: ROXISELENA L : [address]: Matti Romero MD Acct: [id number] Unit: [id number] AGE: 34 Location: ED Re07/10/15 SEX: F Status: REG ER SPEC: [id number] TERRENCE: 07/10/15-[address]: Matti Romero MD REQ: [id number] RECD: 07/10/15 STATUS: [facility]ERSON [facility] DR: Madhavi Mayorga MD PC Lucy Butcher MD _ SOURCE: URINE [facility]: ORDERED: Urine Culture Procedure Result Verified Site Urine Culture Final 07/12/15- 0943 ML Organism 1 ESCHERICHIA COLI [place] Count >100,000 (Many) CFU/ML 1. ESCHERICHIA COLI [...] ML - MAIN LAB ([facility]) . END OF REPORT * ML=Testing performed at Main Lab DEPARTMENT OF PATHOLOGY, [address] [place] [address] Navneet Drake M.D. Director [facility] # [id number] 43 SEE RESULT BELOW Name: SELENA DIANE Shawna : [address]: Matti Romero MD Acct: [id number] Unit: [id number] AGE: 34 Location: ED Re07/10/15 SEX: F Status: REG ER SPEC: [id number] TERRENCE: 07/10/[address] [facility] [address]: Matti Romero MD REQ: [id number] RECD: 07/10/15 STATUS: ANDERSON [facility] DR: Madhavi Mayorga MD Lucy Butcher MD _ SOURCE: BLOOD,VENO SPDESC: ORDERED: Blood Cult COMMENTS: Patient is On Antibiotics? NO Procedure Result Verified Site Aerobic Culture Bottle Final 07/15/15- 2124 ML No Growth Day 5 Anaerobic Culture Bottle Final 07/15/15- 2124 ML No Growth Day 5 * ML - MAIN LAB ([facility]) . END OF REPORT * ML=Testing performed at Main Lab DEPARTMENT OF PATHOLOGY, [address] [place] [address] Navneet Drake M.D. Director [facility] # [id number] 44 Because ethnic data is not always readily [...] 15-29 5 Kidney failure <15 (or dialysis) 45 Because ethnic data is not always readily [...] 15-29 5 Kidney failure <15 (or dialysis) 46 Reference Range and Interpretation: TnI (ng/mL) Interpretation Less Than 0.03 ng/mL Not supportive of diagnosis of AK 0.03 - 0.50 ng/mL Indeterminate: suggest serial studies if clinically indicated. Greater than 0.5 ng/mL Consistent with diagnosis of AK 47 >100 to <200 pg/mL: likely compensated congestive heart failure (CHF) 200 to 400 pg/mL: likely moderate CHF >400 pg/mL: likely moderate to severe CHF 48 please also fax results to Dr. Andriy Albrecht [phone] ~~please also fax results to Dr. Andriy Albrecht [phone] please also fax results to Dr. Andriy Albrehct [phone] please also fax results to Dr. Andriy Albrecht please also fax results to Dr. Andriy Albrecht [phone] 49 Therapeutic target for the treatment of diabetes Mellitus patients is <7% HBA1C, and in selective patients <6.0%.Please refer to [place] [employer] Diabetic care guidelines for further information. 50 REFERENCE VALUE 12.0 - 46.0 Test Performed by: [place] [address] Electric Welder: Matti Gould II, M.D., Ph.D. 51 Test Performed by: [place] [address] Electric Welder: Matti Gould II, M.D., Ph.D. 52 please also fax results to Dr. Andriy Albrecht [phone] YES 53 It is recognized that currently available assays for the detection of antibodies to HIV-1 and/or HIV-2 may not detect all infected individuals. HIV antibodies may be undetectable in some stages of the infection and in some clinical conditions. The performance of this assay has not been established for populations of infants or children. Assayed by Chemiluminescence Microparticle Immunoassay on the Siemens [employer] CP. Values obtained with different methods or kits cannot be used interchangeably.The diagnostic specificity of the ADVIA Centaur 1/O/2 Enhanced assay in the low risk population was 99.90% (6052/6058) with a 95% confidence interval of 99.78 to 99.96%. 54 please also fax results to Dr. Andriy Albrecht [phone] 55 draw in am, prior to first dose. 56 -- REFERENCE VALUE -- 12.0 - 46.0 Test Performed by: [place] [address] Electric Welder: Stevo Cuba III, M.D. 57 Test Performed by: [place] [address] Electric Welder: Stevo Cuba III, M.D. 58 Because ethnic data is not always readily [...] 15-29 5 Kidney failure <15 (or dialysis) 59 Normal Range 180 to 914 Indeterminate Range 145 to 180 Deficient Range <145 60 -- REFERENCE VALUE -- 12.0 - 46.0 Test Performed by: [place] [address] Electric Welder: Stevo Cuba III, M.D. 61 Test Performed by: [address] [address] Electric Welder: Stevo Cuba III, M.D. 62 This test detects intact HCG only and is indicated for the early detection of . 63 RUN DATE: 10/25/13 [facility] LAB LIVE PAGE 1 RUN TIME: [address] [place] [address] Specimen Inquiry Name: SELENA DIANE Shawna : [address]: Nathen Green Acct: [id number] Unit: [id number] AGE: 33 Location: ED Re10/20/13 SEX: F Status: DEP ER SPEC: [id number] TERRENCE: 10/20/13-[address]: Yvette CHOWDHURY REQ: [id number] RECD: 10/20/13 STATUS: COMP HR DR: [facility] Madhavi Mayorga MD Lucy Butcher MD _ SOURCE: BLOOD,VENO SPDESC: ORDERED: Blood Cult Procedure Result Verified Site Aerobic Culture Bottle Final 10/25/13- 1213 ML No Growth Day 5 Anaerobic Culture Bottle Final 10/25/13- 1213 ML No Growth Day 5 END OF REPORT * ML=Testing performed at Main Lab DEPARTMENT OF PATHOLOGY, [address] [place] [address] Navneet Drake M.D. Director [facility] Permit #[id number] 64 Please note the change in the INR reference range effective 13. 65 Please note the change in the PTT reference range effective 13. 66 Because ethnic data is not always readily [...] 15-29 5 Kidney failure <15 (or dialysis) 67 It is recognized that currently available assays [...] 95% confidence interval of 99.78 to 99.96%. 68 RUN DATE: 10/25/13 [facility] LAB LIVE PAGE 1 RUN TIME: [address] [place] [address] Specimen Inquiry Name: ROXISELENA CEBALLOS : [address]: Nathen Green Acct: [id number] Unit: [id number] AGE: 33 Location: ED Re10/20/13 SEX: F Status: DEP ER SPEC: [id number] TERRENCE: 10/20/[address]: Yvette CHOWDHURY REQ: [id number] RECD: 10/20/13 STATUS: ANDERSON [facility] DR: [facility] Madhavi Mayorga MD PC Lucy Butcher MD _ SOURCE: BLOOD,VENO SPDES: ORDERED: Blood Cult Procedure Result Verified Site Aerobic Culture Bottle Final 10/25/13- 1206 ML No Growth Day 5 Anaerobic Culture Bottle Final 10/25/13- 1206 ML No Growth Day 5 END OF REPORT * ML=Testing performed at Main Lab DEPARTMENT OF PATHOLOGY, [address] [place] [address] Navneet Drake M.D. Director [facility] Permit #[id number] 69 -- REFERENCE VALUE -- 12.0 - 46.0 Test Performed by: [facility] [place] [address] Electric Welder: Stevo Cuba III, M.D. 70 Because ethnic data is not always [...] 5 Kidney failure <15 (or dialysis) 71 This test detects intact HCG only and is indicated for the early detection of . 72 Because ethnic data is not always readily [...] 15-29 5 Kidney failure <15 (or dialysis) 73 -- REFERENCE VALUE -- 12.0 - 46.0 Test Performed by: [place] [address] Electric Welder: Stevo Cuba III, M.D. 74 -- REFERENCE VALUE -- 12.0 - 46.0 Test Performed by: [place] [address] Electric Welder: Stevo Cuba III, M.D. 75 Test Performed by: [place] [address] Electric Welder: Stevo Cuba III, M.D. 76 @07/15/13 1121: Cell Morphology added. RFLXG=RBC MORPH. 77 -- REFERENCE VALUE -- 12.0 - 46.0 Test Performed by: [place] [address] Electric Welder: Stevo Cuba III, M.D. Procedures Date CPT Code Description Status 03/05/2018 88256 Neurostimulator Pulse Generator Analysis W/O Completed Reprogramming 10/31/2017 10018 Neurostimulator Pulse Generator Analysis Simple Completed W/Reprogramming 10/08/2017 96567 Neurostimulator Pulse Generator Analysis Simple Completed W/Reprogramming 09/18/2017 25619 Neurostimulator Pulse Generator Analysis Simple Completed W/Reprogramming 09/04/2017 98787 Neurostimulator Pulse Generator Analysis Simple Completed W/Reprogramming 08/21/2017 92649 Neurostimulator Pulse Generator Cranial Nerve First Completed Hour 07/31/2017 69277 EEG Monitoring Computer Completed 04/11/2017 71776 EEG Monitoring & Video Recording Completed 04/10/2017 41383 EEG Monitoring & Video Recording Completed 04/09/2017 07767 EEG Monitoring & Video Recording Completed 04/08/2017 74048 EEG Monitoring & Video Recording Completed 04/07/2017 96290 EEG Monitoring & Video Recording Completed 04/06/2017 78606 EEG Monitoring & Video Recording Completed 02/06/2017 27148 EEG Monitoring Computer Completed 11/08/2016 51574 ECHO Transthorasic Realtime 2D W Doppler & Color Completed Flow Hosp Encounters Type Date Location Provider CPT E/M Dx Office Visit 12/04/2017 [facility] [address] G40.219 2:30p Z87.74 F41.9 R63.4 Office Visit 10/31/2017 9:30a [facility] [address] G40.219 Z87.74 F41.9 Office Visit 10/08/2017 8:30a [facility] [place] [address] G40.219 Z87.74 F41.9 Office Visit 09/18/2017 1:30p [facility] [address] G40.219 G43.109 Z87.74 F41.9 Office Visit 09/04/2017 8:30a [facility] [address] H53.34 G40.219 Office Visit 08/21/2017 8:30a [facility] [address] G40.219 R11.0 Z87.74 F41.9 Office Visit 07/24/2017 11:00a [facility] [address] G40.219 Z87.74 F41.9 Z79.899 Office Visit 06/25/2017 9:00a [facility] [address] G40.219 Z87.74 Z79.899 F41.9 Office Visit 05/21/2017 2:00p [facility] [place] [address] 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 Z87.74 Z79.899 F41.9 Office Visit 05/01/2017 12:00p [facility] [place] [address] 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 Z87.74 Z79.899 F41.9 Office Visit 04/12/2017 11:16a [facility] [address] G40.219 Office Visit 04/11/2017 11:16a [facility] [place] [address] G40.219 Office Visit 04/10/2017 11:15a [facility] [place] [address] G40.219 Office Visit 04/09/2017 11:15a [facility] [address] G40.219 Office Visit 04/08/2017 11:14a [facility] [address] G40.219 Office Visit 04/07/2017 11:14a [facility] [place] [address] G40.219 Office Visit 04/06/2017 11:11a [facility] [address] G40.219 Z87.74 Office Visit 03/28/2017 12:45p [facility] [place] [address] 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 Z79.899 Office Visit 11/01/2015 11:30a [facility] Lucy Butcher M.D. 61867 G40.211 Services Of [employer] Maintenance Inspector Office Visit 11/25/2014 11:15a [facility] Lucy Butcher M.D. 62909 345.41 Services Of [employer] Maintenance Inspector V22.2 784.0 Office Visit 04/02/2014 3:45p [facility] Lucy Butcher M.D. 23141 345.41 Services Of [employer] Maintenance Inspector 784.0 Office Visit 12/15/2013 1:45p [facility] Lucy Butcher M.D. 94559 345.11 Services Of [employer] Maintenance Inspector V15.29 Office Visit 10/13/2013 11:15a [facility] Lucy Butcher M.D. 62897 345.91 Services Of [employer] Maintenance Inspector Office Visit 08/01/2013 2:00p [facility] Lucy Butcher M.D. 06719 345.91 Services Of [employer] Maintenance Inspector Office Visit 04/23/2013 2:00p [facility] Lucy Butcher M.D. 45688 345.90 Services Of [employer] Maintenance Inspector Office Visit 12/25/2012 2:15p [facility] Lucy Butcher M.D. 35939 345.41 Services Of [employer] Maintenance Inspector V22.2 Office Visit 08/21/2012 4:00p [facility] Lucy Butcher M.D. 10520 345.91 Services Of [facility] Plan of Care Future Appointment(s):04/29/2018 9:00 am - Leatha Coles MD at [facility] [place]0803/05/2018 - Leatha Coles MDG40.219 Local-rel symptc epi w cmplx part seiz , ntrct, w/o stat epiFollow up:: in JuneRecommendations:We need to get you off the Onfi because of the dosing errors recently. This may also help your tiredness: Take 1/2 tablet twice a day for 2 weeks then 1/2 tablet at night for 2 weeks then stop. I would like to see if we can get you off this med without adding anything else. I changed your VNS setting slightly today so it will go off every 3 minutes now instead of 5. Continue using magnet for prolonged ozlcrR40.74 Personal history of congenital malform of heart and circ sysF41.9 Anxiety disorder, unspecifiedRecommendations:please go to mental health.
[2018-03-28 05:16] LABS: EGFR Non-African American 108.9 (>60)
[2018-03-28] MEDS ORDERED: Ketorolac INJ* 30 MG/ML 1 ML VIAL IV ONE (06:53)
[2018-03-28] MEDS ORDERED: LORazepam INJ* 2 MG/ML 1 ML VIAL IV ONE (06:53)
--- NOTE | 2018-03-28 07:14 | ED ---
Natalya Bolton Rebecca, scribed for Matti Romero MD on 03/28/18 at 0353 . Neurological HPI - HPI Summary HPI Summary: Pt is a 37 y/o F BIBA who presents to ED s/p seizures. Pt has 2 witnessed seizures tonight and is currently feeling as she typically does after a seizure - fatigued and confused with nausea. Pt has a neuro implant in her chest that is used for seizure control which typically works, but tonight she could not use it. No recent illnesses. - History of Current Complaint Chief Complaint: EDSeizure Stated Complaint: SEIZURES Time Seen by Provider: 03/28/18 03:51 Hx Obtained From: Patient Hx Last Menstrual Period: non Onset/Duration: Resolved Timing: Intermittent Episodes Lasting: Current Severity: None Number of Seizures: 2 Pain Intensity: 0 Pain Scale Used: 0-10 Numeric Aggravating: Nothing Alleviating: Spontanious Resolution Associated Signs and Symptoms: Positive: Confusion, Nausea/Vomiting - nausea - Additional Pertinent History Primary Care Physician: [id number] - Allergy/Home Medications Allergies/Adverse Reactions: Allergies Allergy/AdvReac Type Severity Reaction Status Date / Time bee venom protein (honey bee) Allergy Hives Verified 01/28/18 18:07 cephalexin [From Keflex] Allergy Hives Verified 01/28/18 18:07 morphine Allergy Hives Verified 01/28/18 18:07 mushroom Allergy Hives Verified 01/28/18 18:07 Sulfa (Sulfonamide Allergy Rash Verified 01/28/18 18:07 Antibiotics) enviromental Allergy Eyes Uncoded 01/28/18 18:07 Itchy/Swollen/Red/Watery PMH/Surg Hx/FS Hx/Imm Hx Endocrine/Hematology History: Reports: Hx Thyroid Disease, Hx Anemia - IV iron tx Denies: Hx Anticoagulant Therapy, Hx Diabetes Cardiovascular History: Denies: Hx Congestive Heart Failure, Hx Hypertension, Hx Pacemaker/ICD Comment Only: Other Cardiovascular Problems/Disorders - Arteriovenous malformation - Sx repair in 2008. Right atrial enlargement. 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 RT TEMPORAL LOBE IN 2008 [place] (removed scar tissue). 5 CSECTIONS. VNM simulater.07/2017 Hx Anesthesia Reactions: No - Immunization History Date of Tetanus Vaccine: None Date of Influenza Vaccine: None Infectious Disease History: No Infectious Disease History: Denies: Hx Hepatitis, Hx Human Immunodeficiency Virus (HIV), Traveled Outside the [place] in Last 30 Days - Family History Known Family History: Positive: Cardiac Disease, Hypertension, Other - cancer Negative: Diabetes - Social History Alcohol Use: None Hx Substance Use: No Substance Use Type: Reports: None, Prescribed Substance Use Comment - Amount & Last Used: Ativan Hx Tobacco Use: Yes Smoking Status (MU): Former Smoker Have You Smoked in the Last Year: Yes - had of close relative on 2016 so smoked to cope Review of Systems Positive: Fatigue Positive: Nausea Neurological: Other - s/p 2 seizures; confused All Other Systems Reviewed And Are Negative: Yes Physical Exam - Summary Physical Exam Summary: General: well-appearing, no pain distress, mildly confused Skin: warm, color reflects adequate perfusion, dry Head: normal Eyes: EOMI, CLAY ENT: normal Neck: supple, nontender Respiratory: CTA, breath sounds present Cardiovascular: RRR Abdomen: soft, nontender Bowel: present Musculoskeletal: normal, strength/ROM intact Neurological: sensory/motor intact, A&O x3, mildly confused, appears post-ictal Psychological: affect/mood appropriate Triage Information Reviewed: Yes Vital Signs On Initial Exam: Initial Vitals Pulse Resp BP Pulse Ox 123 16 121/82 96 03/28/18 03:44 03/28/18 03:44 03/28/18 03:44 03/28/18 03:44 Vital Signs Reviewed: Yes Diagnostics - Vital Signs Vital Signs Temp Pulse Resp BP Pulse Ox 03/28/18 03:45 98.6 F 117 20 121/82 99 03/28/18 03:44 123 16 121/82 96 - Laboratory Lab Results: Lab Results 03/28/18 03/28/18 03/28/18 Range/Units 04:33 04:33 04:33 WBC 8.4 (3.5-10.8) 10^3/ul RBC 4.19 (4.0-5.4) 10^6/ul Hgb 12.7 (12.0-16.0) g/dl Hct 38 (35-47) % MCV 90 (80-97) fL MCH 30 (27-31) pg MCHC 34 (31-36) g/dl RDW 13 (10.5-15) % Plt Count 213 (150-450) 10^3/ul MPV 7.2 L (7.4-10.4) um3 Neut % (Auto) 66.2 (38-83) % Lymph % (Auto) 21.5 L (25-47) % [place] % (Auto) 9.1 H (0-7) % Eos % (Auto) 2.8 (0-6) % Baso % (Auto) 0.4 (0-2) % Absolute Neuts (auto) 5.6 (1.5-7.7) 10^3/ul Absolute Lymphs (auto) 1.8 (1.0-4.8) 10^3/ul Absolute Monos (auto) 0.8 (0-0.8) 10^3/ul Absolute Eos (auto) 0.2 (0-0.6) 10^3/ul Absolute Basos (auto) 0 (0-0.2) 10^3/ul Absolute Nucleated RBC 0 10^3/ul Nucleated RBC % 0 INR (Anticoag Therapy) 0.91 (0.77-1.02) APTT 24.0 L (26.0-36.3) seconds Sodium 137 L (139-145) mmol/L Potassium 3.4 L (3.5-5.0) mmol/L Chloride 104 (101-111) mmol/L Carbon Dioxide 26 (22-32) mmol/L Anion Gap 7 (2-11) mmol/L BUN 9 (6-24) mg/dL Creatinine 0.62 (0.51-0.95) mg/dL Est GFR ( Amer) 140.1 (>60) Est GFR (Non-Af Amer) 108.9 (>60) BUN/Creatinine Ratio 14.5 (8-20) Glucose 126 H (70-100) mg/dL Lactic Acid (0.5-2.0) mmol/L Calcium 9.4 (8.6-10.3) mg/dL Total Bilirubin 0.20 (0.2-1.0) mg/dL AST 19 (13-39) U/L ALT 14 (7-52) U/L Alkaline Phosphatase 40 (34-104) U/L Total Creatine Kinase 44 (10-223) U/L C-Reactive Protein < 1.00 (< 5.00) mg/L Total Protein 6.3 L (6.4-8.9) g/dL Albumin 4.4 (3.2-5.2) g/dL Globulin 1.9 L (2-4) g/dL Albumin/Globulin Ratio 2.3 (1-3) TSH 3.05 (0.34-5.60) mcIU/mL Beta HCG, Quant < 0.60 mIU/mL 03/28/18 Range/Units 04:33 WBC (3.5-10.8) 10^3/ul RBC (4.0-5.4) 10^6/ul Hgb (12.0-16.0) g/dl Hct (35-47) % MCV (80-97) fL MCH (27-31) pg MCHC (31-36) g/dl RDW (10.5-15) % Plt Count (150-450) 10^3/ul MPV (7.4-10.4) um3 Neut % (Auto) (38-83) % Lymph % (Auto) (25-47) % [place] % (Auto) (0-7) % Eos % (Auto) (0-6) % Baso % (Auto) (0-2) % Absolute Neuts (auto) (1.5-7.7) 10^3/ul Absolute Lymphs (auto) (1.0-4.8) 10^3/ul Absolute Monos (auto) (0-0.8) 10^3/ul Absolute Eos (auto) (0-0.6) 10^3/ul Absolute Basos (auto) (0-0.2) 10^3/ul Absolute Nucleated RBC 10^3/ul Nucleated RBC % INR (Anticoag Therapy) (0.77-1.02) APTT (26.0-36.3) seconds Sodium (139-145) mmol/L Potassium (3.5-5.0) mmol/L Chloride (101-111) mmol/L Carbon Dioxide (22-32) mmol/L Anion Gap (2-11) mmol/L BUN (6-24) mg/dL Creatinine (0.51-0.95) mg/dL Est GFR ( Amer) (>60) Est GFR (Non-Af Amer) (>60) BUN/Creatinine Ratio (8-20) Glucose (70-100) mg/dL Lactic Acid 1.4 (0.5-2.0) mmol/L Calcium (8.6-10.3) mg/dL Total Bilirubin (0.2-1.0) mg/dL AST (13-39) U/L ALT (7-52) U/L Alkaline Phosphatase (34-104) U/L Total Creatine Kinase (10-223) U/L C-Reactive Protein (< 5.00) mg/L Total Protein (6.4-8.9) g/dL Albumin (3.2-5.2) g/dL Globulin (2-4) g/dL Albumin/Globulin Ratio (1-3) TSH (0.34-5.60) mcIU/mL Beta HCG, Quant mIU/mL Result Diagrams: 18 04:33 18 04:33 Lab Statement: Any lab studies that have been ordered have been reviewed, and results considered in the medical decision making process. Re-Evaluation - Re-Evaluation First Eval Re-Evaluation Time: 06:38 Comment: Continues to have auras Second Eval Re-Evaluation Time: 06:53 Comment: Agrees with the plan to receive Ativan but not to be D/C with any Course/Dx - Course Course Of Treatment: DISCUSSED WITH DR RUANO, NEUROLOGY. HE RECOMMENDED ATIVAN PRN IN THE ED BUT, NO BENZO RX. F/U NEUROLOGY; RETURN IF WORSE. Assessment/Plan: Medications reviewed. Allergies noted. - Diagnoses Provider Diagnoses: Seizure, Epilepsy - Physician Notifications Discussed Care Of Patient With: Ezequiel Ruano Time Discussed With Above Provider: 06:41 Instructed by Provider To: Other - Advised ativan in the ED but not to be D/C to home with any. Discharge - Sign-Out/Discharge Documenting (check all that apply): Sign-Out Patient Signing out patient TO: Dylon Dean - Waiting for symptoms to resolve - Discharge Plan Condition: Stable Disposition: HOME Patient Education Materials: Epilepsy (ED) Referrals: Leatha Coles MD [Medical Doctor] - Madhavi Mayorga MD [Primary Care Provider] - Additional Instructions: FOLLOW UP WITH YOUR DOCTOR. RETURN TO THE EMERGENCY DEPARTMENT FOR ANY WORSENING OF YOUR CONDITION OR QUESTIONS OR CONCERNS. - Billing Disposition and Condition Condition: STABLE Disposition: HOME The documentation as recorded by the Natalya weller Rebecca accurately reflects the service I personally performed and the decisions made by me, Matti Romero MD.
[2018-03-28 10:50] VITALS: BP 88/49
--- NOTE | 2018-03-29 07:39 | ED ---
IDerik Gabriel, scribed for Dylon Dean MD on 03/28/18 at 0748 . Progress - Progress Note Progress Note: This patient was signed out from Dr. Romero, pending disposition, awaiting symptoms resolution and observation. The patients condition is stable and will be discharged to home with Dx of seizures. The patient has had no seizure activity in the ED during this shift. She feels ready to go home at this time. She will follow up from Dr. Slater. She has adequate medication at home. Re-Evaluation - Re-Evaluation First Eval Re-Evaluation Time: 06:38 Comment: Continues to have auras Second Eval Re-Evaluation Time: 06:53 Comment: Agrees with the plan to receive Ativan but not to be D/C with any Third Eval Re-Evaluation Time: 10:50 Change: Improved - The patient has had no seizure activity in the ED during this shift. She feels ready to go home at this time. Course/Dx - Course Course Of Treatment: This patient was signed out from Dr. Romero, pending disposition, awaiting symptoms resolution and observation. The patients condition is stable and will be discharged to home with Dx of seizures. The patient has had no seizure activity in the ED during this shift. She feels ready to go home at this time. She will follow up from Dr. Slater. She has adequate medication at home. - Diagnoses Provider Diagnoses: Seizure - Provider Notifications Time Discussed With Above Provider: 06:41 Instructed by Provider To: Other - Advised ativan in the ED but not to be D/C to home with any. Discharge - Sign-Out/Discharge Documenting (check all that apply): Discharge/Admit/Transfer - Discharge Plan Condition: Stable Disposition: HOME Patient Education Materials: Epilepsy (ED) Referrals: Leatha Slater MD [Medical Doctor] - Additional Instructions: FOLLOW UP WITH YOUR DR SLATER RETURN TO THE EMERGENCY DEPARTMENT FOR ANY WORSENING OF YOUR CONDITION OR QUESTIONS OR CONCERNS. The documentation as recorded by the Derik weller Gabriel accurately reflects the service I personally performed and the decisions made by , Dylon Dean MD.
== END 2018-03-28 11:00 | disposition home or self-care (01) ==
LOC: ED 03:34
DX: G40.909 Epilepsy, unspecified, not intractable, without status epilepticus (principal); R53.83 Other fatigue; Z87.891 Personal history of nicotine dependence; Z88.3 Allergy status to other anti-infective agents; Z88.2 Allergy status to sulfonamides
CPT/HCPCS: 36415; 80053; 80183; 82550; 83605; 84443; 84702; 85025; 85610; 85730; 86140; 96374; 96375; 99283; A9270-GY; G0480; J1885; J2060

== ENCOUNTER 2018-04-17 19:22 | Emergency (ER) | payer OTHER ==
[2018-04-17] MEDS ORDERED: NS 0.9% 1000 ML* 1,000 ML IV ONE (19:42)
[2018-04-17 20:09] LABS: ABS Basophils 0 10^3/ul (0-0.2); ABS Eosinophils 0.2 10^3/ul (0-0.6); ABS Lymphocytes 2.6 10^3/ul (1.0-4.8); ABS Monocytes 0.6 10^3/ul (0-0.8); ABS Neutrophils 3.4 10^3/ul (1.5-7.7); ABS Nucleated RBC 0 10^3/ul; Eosinophil % 2.3 % (0-6); Hematocrit 39 % (35-47); Hemoglobin 13.3 g/dl (12.0-16.0); Lymphocyte % 38.7 % (25-47); Mean Corpuscular HGB Conc 34 g/dl (31-36); Mean Corpuscular Hemoglobin 30 pg (27-31); Mean Corpuscular Volume 89 fL (80-97); Nucleated Red Blood Cells % 0; Platelet Count 288 10^3/ul (150-450); Red Blood Count 4.44 10^6/ul (4.0-5.4); Red Cell Distribution Width 13 % (10.5-15); White Blood Count 6.8 10^3/ul (3.5-10.8)
[2018-04-17 20:17] LABS: INR 0.9 (0.77-1.02)
--- OUTSIDE RECORDS SUMMARY | 2018-04-17 20:25 | XMS REPORT ---
:1980 External Reference #:[id number] Author Organization [facility] Address [address] [address] Phone [phone] Care Team Providers Name Role Phone Madhavi Mayorga MD Primary Care Physician Unavailable Payers Type Date Identification Numbers Payment Provider Subscriber Commercial Effective: Policy Number: [id number] [employer] Selena Diane 2016 Medicaid PayID: [id number] [address] [place] [address] Commercial Expires: 2017 Policy Number: [employer] Selena Matos [id number] Essential Andrea PayID: [id number] [address] [place] [address] Problems Date Description Provider Status Onset: 11/25/2014 [...] Active unspecified Onset: 12/04/2017 Weight decreased Leatha Coles MD Active Onset: 09/18/2017 Migraine with typical [...] Form Strength Qnty SIG Indications Ordering Provider Aptiom 04/05 Active Tablets 800mg 30tab take 1/2 G40.219 Leatha Coles s tablet MD once a day for 1 week then 1 by mouth every day Sertraline HCL 12/07 Active Tablets 50mg 60tab 2 tablets F41.9 Leatha Coles s by mouth MD every day Magnesium Oxide 09/18 Active Tablets [...] s mouth MD daily in the morning Acetaminophen Active Tablets 325mg 120ta take 2 Unknown /0000 bs tabs prn Vitamin D Active Tablets 2000Units 1 in Unknown (Cholecalcifero / am,1000 l) units at night Ra Active Tablets ER take 1 Unknown B-Complex/Vitam / tablet in C CR once daily Potassium Active Tablets ER 10Meq take 1 Unknown Chloride ER / tablet by mouth once daily Oxcarbazepine Active Tablets 300mg 90tab 2 tabs po Leatha Coles, s qam and 2 MD tabs p qpm Ferrous Sulfate Active Tablets 325(65Fe) 1 tab po Unknown / mg qd Levothyroxine Active Tablets 25mcg 1 by Unknown Sodium / mouth every day Dicyclomine HCL Active Capsules 10mg one Unknown /0000 capsule tid Klonopin 02/11 Hx Tablets 0.5mg 6tabs 1 tablet by mouth MD Lyndsey - twice a Hydroxyzine HCL 12/04 Hx Tablets 25mg 60tab 1/2 to 1 Leatha s tablet as MD - needed 12/04 for anxiety up to twice a day Sertraline HCL 12/04 Hx Tablets 25mg 60tab 1 by F41.9 Leatha Coles s mouth MD - every day 12/07 for two weeks, then 2 tabs by mouth daily Vicodin 10/10 Hx Tablets 5-300mg 3tabs take 1 po Lucy q 6 Cowdery, - hours, as M.DJose 12/03 needed for pain Ondansetron 08/21 Hx Tablets 4mg 30tab 1 up to R11.0 Leatha Coles Dispers s three MD - times a 12/03 day needed for nausea Briviact 07/29 Hx Tablets 50mg 32tab 2 by Leatha Coles s mouth MD - twice 08/20 Briviact 06/25 Hx Tablets 50mg 28tab 1 by Leatha Coles s mouth MD - twice 07/28 Clonazepam 06/25 Hx Tablets 0.125mg 35tab 1 twice a G40.219 Leatha Coles Dispers s day for 2 MD - weeks 07/23 then once a day for 2 weeks then stop. Briviact 06/25 Hx Tablets 50mg 60tab 1 by Leatha Coles s mouth MD - twice 07/28 Levetiracetam 05/28 Hx Tablets 1000mg 60tab 2 tabs by G40.219 Leatha Coles s mouth MD - twice a Clonazepam 04/23 Hx Tablets 0.5mg 7tabs 1/2 tab Richie Dispers po bid Chele Ortega - 12/03 Onfi 04/12 Hx Tablets 10mg 4tabs 1/2 tab Leatha Coles po qhs MD - 03/26 Lorazepam 02/13 Hx Tablets 0.5mg 30tab 1 tablet Leatha Coles s twice a MD - day as 05/21 needed for aura Fycompa 02/09 Hx Tablets 2mg 120ta 1 tablet Leatha Coles bs at MD - bedtime 04/19 x1 week then 2 tablets at bedtime x1 week then 3 tablets at bedtime u5guevo then 4 tablets at bedtime Citalopram 01/22 Hx Tablets 10mg 60tab take 1 by F41.9 Leatha Coles Hydrobromide s mouth MD - once 04/23 daily for 1 week then 2 by mouth once daily Phenytoin 10/09 Hx Capsules 100mg 90cap 3 cap by Mayte Culver s mouth Maddy, - every M.D. 10/30 Aptiom 01/10 Hx [...] using Flintstones Hx Chewtabs 60mg Unknown Complete / - 10/13 Vitamin B12 Hx Tablets ER 1000mcg 30tab 1 po qd Unknown / s - 10/13 Lorazepam Hx Tablets 1mg 30tab 1 by Leatha Coles, s mouth MD - three 02/13 times day as needed for aura Nitrofurantoin Hx Capsules 100mg 14cap 1 cap po Unknown Monohydrate / s bid x 7 - days 12/15 Doxycycline Hx Capsules 100mg Stevanomaria, Hyclate /0000 MD Madhavi - 03/19 Motrin Pilo Hx Suspension 100mg/ml 3 tsp po Unknown Strength /0000 prn - 08/03 Pepto-Bismol Hx Suspension 262mg/15M 120ml as needed Unknown /0000 L - 08/03 Flintstones Hx Chewtabs daily Unknown Plus Iron / - 10/31 Fish Oil Hx Capsules 300mg 1 by Unknown /0000 mouth - every day 08/03 Levothyroxine Hx Tablets 75mcg 1 by Unknown Sodium /0000 mouth - every day 08/03 Hydrocodone-Jefry Hx Tablets 5-325mg Nick, taminophen /0000 Marline Lopez MD 12/21 Penicillin V Hx Tablets 500mg 4x a day Unknown Potassium /0000 till out - 09/07 Clindamycin HCL Hx Capsules 150mg one every Unknown /0000 6 hours - 08/20 Hydrocodone-Jefry Hx Tablets 5-325mg 1 tab by Unknown taminophen /0000 mouth - every - 09/07 6 hours /2016 as needed pain Hydrocortisone Hx Cream 1% use Unknown /0000 sparingly - twice a 09/07 day x weeks Vital Signs Date Vital Result Comment 04/05/2018 Height 59 inches 4'11" Weight 80.25 lb Heart Rate 72 /min BP Systolic 106 mmHg BP Diastolic 80 mmHg BMI (Body Mass Index) 16.2 kg/m2 03/05/2018 Height 59 inches 4'11" Weight 82.38 [...] Color Yellow Urine Appearance Cloudy Urine Specific [place] 1.015 1.010-1.030 Urine pH 5.0 5-9 Urine [...] Color Yellow Urine Appearance Cloudy Urine Specific [place] 1.013 1.010-1.030 Urine pH 7.0 5-9 Urine [...] Color Yellow Urine Appearance Cloudy Urine Specific [place] 1.018 1.010-1.030 Urine pH 7.0 5-9 Urine [...] Color Yellow Urine Appearance Cloudy Urine Specific [place] 1.032 High 1.010-1.030 Urine pH 5.0 5-9 [...] Color Yellow Urine Appearance Cloudy Urine Specific [place] 1.017 1.010-1.030 Urine pH 6.0 5-9 Urine [...] Color Yellow Urine Appearance Cloudy Urine Specific [place] 1.017 1.010-1.030 Urine pH 5.0 5-9 Urine [...] Color Yellow Urine Appearance Turbid Urine Specific [place] 1.024 1.010-1.030 Urine Esterase Negative Negative Urine Nitrate Negative Negative Urine Urobilinogen Negative E.U./dL Negative Urine Protein Negative mg/dL Negative Urine pH 6.5 5-9 Urine Blood Negative Negative Urine Ketones Negative mg/dL Negative Urine Bilirubin Negative Negative Urine Glucose Negative mg/dL Negative Urinalysis 08/06/2013 Urine Color Yellow Urine Appearance Clear Urine Specific [place] 1.016 1.010-1.030 Urine Esterase Negative Negative Urine [...] developed and its performance characteristics determined by [facility] in a manner consistent with CLIA requirements. This test has not been cleared or approved by the U.S. Food and Drug Administration. Test Performed by: [facility] [employer] - [facility] [address] [place] [id number] 2 This test was developed and its performance characteristics determined by [facility]. It has not been cleared or approved by the Food and Drug Administration. Test Performed by: [employer] [address] [place] [id number] 3 REFERENCE VALUE 12.0 - 46.0 ADDITIONAL INFORMATION This test was developed and its performance characteristics determined by [facility] in a manner consistent with CLIA requirements. This test has not been cleared or approved by the U.S. Food and Drug Administration. Test Performed by: [facility] - [facility] [address] [place] [address] 4 ADDITIONAL INFORMATION This test was developed and its performance characteristics determined by [facility] in a manner consistent with CLIA requirements. This test has not been cleared or approved by the U.S. Food and Drug Administration. Test Performed by: [facility] - [address] [address] 5 SEE RESULT BELOW Name: SELENA DIANE : [address]: Jackson VALE Acct: [id number] Unit: [id number] AGE: 36 Location: LAB Re07/18/17 SEX: F Status: REG REF SPEC: [id number] TERRENCE: 07/18/[address]: Jackson Louis [facility] REQ: [id number] RECD: 07/18/17 STATUS: ANDERSON AMEZQUITA DR: Madhavi Mayorga MD PC _ SOURCE: URINE SPDESC: ORDERED: Urine Culture Procedure Result Reported Site Urine Culture Final 07/19/17- 1439 ML No Growth (<1,000 CFU/mL) * ML - MAIN LAB ([facility]) . END OF REPORT * ML=Testing performed at Main Lab DEPARTMENT OF PATHOLOGY, [address] [place] [address] Navneet Drake M.D. Director [facility] # [id number] 6 Because ethnic data is not always [...] 5 Kidney failure <15 (or dialysis) 7 [facility] Severe Sepsis and Septic Shock Management Bundle [...] 5 Kidney failure <15 (or dialysis) 10 [facility] Severe Sepsis and Septic Shock Management Bundle [...] developed and its performance characteristics determined by [facility] in a manner consistent with CLIA requirements. This test has not been cleared or approved by the U.S. Food and Drug Administration. Test Performed by: [place] [address] 13 *Ascorbic acid is present which may [...] 15 SEE RESULT BELOW Name: SELENA DIANE Shawna : [address]: Jackie Snow MD Acct: [id number] Unit: [id number] AGE: 36 Location: ED Re05/05/17 SEX: F Status: DEP ER SPEC: [id number] TERRENCE: 05/05/[address]: Jackie Snow MD REQ: [id number] RECD: 05/05/17 STATUS: ANDERSON AMEZQUITA DR: Leatha Coles MD _ SOURCE: URINE SPDESC: ORDERED: Urine Culture Procedure Result Reported Site Urine Culture Final 05/06/17- 1626 ML No growth of clinically significant organisms * ML - MAIN LAB ([facility]) . END OF REPORT * ML=Testing performed at Main Lab DEPARTMENT OF PATHOLOGY, [address] [place] [address] Navneet Drake M.D. Director [facility] # [id number] 16 REFERENCE VALUE 12.0 - 46.0 ADDITIONAL INFORMATION This test was developed and its performance characteristics determined by [facility] in a manner consistent with CLIA requirements. This test has not been cleared or approved by the U.S. Food and Drug Administration. Test Performed by: [facility] - [address] [address] [facility] Severe Sepsis and Septic Shock Management Bundle [...] developed and its performance characteristics determined by [facility] in a manner consistent with CLIA requirements. This test has not been cleared or approved by the U.S. Food and Drug Administration. Test Performed by: [facility] [employer] - [address] [address] ADDITIONAL INFORMATION This test was developed and its performance characteristics determined by [facility] in a manner consistent with CLIA requirements. This test has not been cleared or approved by the U.S. Food and Drug Administration. Test Performed by: [facility] [employer] - [address] [address] REFERENCE VALUE 12.0 - 46.0 ADDITIONAL INFORMATION This test was developed and its performance characteristics determined by [facility] in a manner consistent with CLIA requirements. This test has not been cleared or approved by the U.S. Food and Drug Administration. Test Performed by: [facility] [employer] - [address] [address] ADDITIONAL INFORMATION This test was developed and its performance characteristics determined by [facility] in a manner consistent with CLIA requirements. This test has not been cleared or approved by the U.S. Food and Drug Administration. Test Performed by: [facility] - [address] [address] 23 SEE RESULT BELOW Name: SELENA DIANE Shawna : [address]: Flory Lei MD Acct: [id number] Unit: [id number] AGE: 36 Location: ED Re04/27/17 SEX: F Status: DEP ER SPEC: [id number] TERRENCE: 04/27/[address] [facility] [address]: Flory Lei MD REQ: [id number] RECD: 04/27/17 STATUS: ANDERSON AMEZQUITA DR: Leatha Coles MD _ SOURCE: URINE SPDES: ORDERED: Urine Culture Procedure Result Reported Site Urine Culture Final 04/30/17- 820 ML Organism 1 ESCHERICHIA COLI Assonet Count 25-50,000 (Moderate) CFU/ML 1. ESCHERICHIA COLI [...] antibiotic reporting. * ML - MAIN LAB ([facility]) . END OF REPORT * ML=Testing performed at Main Lab DEPARTMENT OF PATHOLOGY, [address] [place] [address] Navneet Drake M.D. Director [facility] # [id number] 24 *Ascorbic acid is present which may interfere with detection of blood. 25 [facility] Severe Sepsis and Septic Shock Management Bundle [...] levels of up to 20 mIU/mL 33 [facility] Severe Sepsis and Septic Shock Management Bundle Measure requires all lactic acids initially measuring >2.0 mmol/L be repeated. 34 REFERENCE VALUE 12.0 - 46.0 ADDITIONAL INFORMATION This test was developed and its performance characteristics determined by [facility] in a manner consistent with CLIA requirements. This test has not been cleared or approved by the U.S. Food and Drug Administration. Test Performed by: [facility] - [address] [address] ADDITIONAL INFORMATION This test was developed and its performance characteristics determined by [facility] in a manner consistent with CLIA requirements. This test has not been cleared or approved by the U.S. Food and Drug Administration. Test Performed by: [facility] - [address] [address] 36 SEE RESULT BELOW Name: SELENA DIANE : [address]: Jae George MD Acct: [id number] Unit: [id number] AGE: 36 Location: ENDO Re03/19/17 SEX: F Status: REG REF SPEC: [id number] TERRENCE: 03/19/17-[address] [facility] [address]: Jae George MD REQ: [id number] RECD: 03/19/17 STATUS: ANDERSON AMEZQUITA DR: Leatha Mayorga MD PC _ SOURCE: GAS ANTRUM SPDESC: ORDERED: Clotest Procedure Result Reported Site Clotest Final 03/20/17714 ML Clotest Negative * ML - MAIN LAB ([facility]) . END OF REPORT * ML=Testing performed at Main Lab DEPARTMENT OF PATHOLOGY, [address] [place] [address] Navneet Drake M.D. Director [facility] # [id number] 37 ADDITIONAL INFORMATION This test was developed and its performance characteristics determined by [facility] in a manner consistent with CLIA requirements. This test has not been cleared or approved by the U.S. Food and Drug Administration. Test Performed by: [place] [address] [employer]: Matti Gould II, M.D., Ph.D. 38 REFERENCE VALUE 12.0 - 46.0 ADDITIONAL INFORMATION This test was developed and its performance characteristics determined by [facility] in a manner consistent with CLIA requirements. This test has not been cleared or approved by the U.S. Food and Drug Administration. Test Performed by: [place] [address] [employer]: Matti Gould II, M.D., Ph.D. 39 REFERENCE VALUE 12.0 - 46.0 Test Performed by: [place] [address] [employer]: Matti Gould II, M.D., Ph.D. 40 SEE RESULT BELOW Name: SELENA DIANE : [address]: Matti Romero MD Acct: [id number] Unit: [id number] AGE: 34 Location: ED Re07/14/15 SEX: F Status: DEP ER SPEC: [id number] TERRENCE: 07/14/15-[address] [facility] [address]: Matti Romero MD REQ: [id number] RECD: 07/14/15 STATUS: ANDERSON AMEZQUITA DR: Madhavi Mayorga MD Lucy Butcher MD _ SOURCE: URINE SPDESC: ORDERED: Urine Culture Procedure Result Verified Site Urine Culture Final 07/16/15- 0950 ML Organism 1 ESCHERICHIA COLI Assonet Count >100,000 (Many) CFU/ML 1. ESCHERICHIA COLI [...] antibiotic reporting. * ML - MAIN LAB ([facility]) . END OF REPORT * ML=Testing performed at Main Lab DEPARTMENT OF PATHOLOGY, [address] [place] [address] Navneet Drake M.D. Director [facility] # [id number] 41 Acute inflammation: >10.00 42 SEE RESULT BELOW Name: SELENA DIANE : [address]: Matti Romero MD Acct: [id number] Unit: [id number] AGE: 34 Location: ED Re07/10/15 SEX: F Status: REG ER SPEC: [id number] TERRENCE: 07/10/[address] [facility] [address]: Matti Romero MD REQ: [id number] RECD: 07/10/15 STATUS: [facility] DR: Madhavi Mayorga MD Lucy Butcher MD _ [facility] ORDERED: Urine Culture Procedure Result Verified Site Urine Culture Final 07/12/15- 0943 ML Organism 1 ESCHERICHIA COLI Assonet Count >100,000 (Many) CFU/ML 1. ESCHERICHIA COLI [...] antibiotic reporting. * ML - MAIN LAB ([facility]) . END OF REPORT * ML=Testing performed at Main Lab DEPARTMENT OF PATHOLOGY, [address] [place] [address] Navneet Drake M.D. Director [facility] # [id number] 43 SEE RESULT BELOW Name: SELENA DIANE : [address]: Matti Romero MD Acct: [id number] Unit: [id number] AGE: 34 Location: ED Re07/10/15 SEX: F Status: REG ER SPEC: [id number] TERRENCE: 07/10/[address] [facility] [address]: Matti Romero MD REQ: [id number] RECD: 07/10/15 STATUS: COMP OTHR DR: Madhavi Mayorga MD PC Lucy Butcher MD _ SOURCE: BLOOD,VENO SPDESC: ORDERED: Blood Cult COMMENTS: Patient is On Antibiotics? NO Procedure Result Verified Site Aerobic Culture Bottle Final 07/15/15- 2124 ML No Growth Day 5 Anaerobic Culture Bottle Final 07/15/15- 2124 ML No Growth Day 5 * ML - [facility] ([facility]) . END OF REPORT * ML=Testing performed at Main Lab DEPARTMENT OF PATHOLOGY, [address] [place] [address] Navneet Drake M.D. Director [facility] # [id number] 44 Because ethnic data is not always [...] 0.5 ng/mL Consistent with diagnosis of NV 47 >100 to <200 pg/mL: likely compensated congestive heart failure (CHF) 200 to 400 pg/mL: likely moderate CHF >400 pg/mL: likely moderate to severe CHF 48 please also fax results to Dr. Andriy Albrecht [phone] ~~please also fax results to Dr. Andriy Albrecht [phone] please also fax results to Dr. Andriy Albrecht [phone] please also fax results to Dr. Andriy Albrecht please also fax results to Dr. Andriy Albrecht [phone] 49 Therapeutic target for the treatment of diabetes Mellitus patients is <7% HBA1C, and in selective patients <6.0%.Please refer to [employer] Diabetic care guidelines for further information. 50 REFERENCE VALUE 12.0 - 46.0 Test Performed by: [place] [address] [employer]: Matti Gould II, M.D., Ph.D. 51 Test Performed by: [address] [address] [employer]: Matti Gould II, M.D., Ph.D. 52 please also fax results to Dr. Andriy Albrecht [phone] YES 53 It is recognized that currently [...] also fax results to Dr. Andriy Albrecht [phone] 55 draw in am, prior to first dose. 56 -- REFERENCE VALUE -- 12.0 - 46.0 Test Performed by: [address] [address] [employer]: Stevo Cuba III, M.D. 57 Test Performed by: [address] [address] [employer]: Stevo Cuba III, M.D. 58 Because ethnic [...] -- 12.0 - 46.0 Test Performed by: [place] [address] [employer]: Stevo Cuba III, M.D. 61 Test Performed by: [place] [address] [employer]: Stevo Cuba III, M.D. 62 This test detects intact HCG only and is indicated for the early detection of . 63 RUN DATE: 10/25/13 [facility] LAB LIVE PAGE 1 RUN TIME: [address] [place] [address] Specimen Inquiry Name: SELENA DIANE : [address]: Nathen Green Acct: [id number] Unit: [id number] AGE: 33 Location: ED Re10/20/13 SEX: F Status: DEP ER SPEC: [id number] TERRENCE: 10/20/[address] [facility] [address]: Yvette CHOWDHURY REQ: [id number] RECD: 10/20/13 STATUS: ANDERSON AMEZQUITA DR: [facility] Madhavi Mayorga MD PC Lucy Butcher MD _ SOURCE: BLOOD,VENO SPDESC: ORDERED: Blood Cult Procedure Result Verified Site Aerobic Culture Bottle Final 10/25/13- 1212 ML No Growth Day 5 Anaerobic Culture Bottle Final 10/25/13- 121 ML No Growth Day 5 END OF REPORT * ML=Testing performed at Main Lab DEPARTMENT OF PATHOLOGY, [address] [place] [address] Navneet Drake M.D. Director [facility] Permit #[id number] 64 Please note the change in the [...] 99.78 to 99.96%. 68 RUN DATE: 10/25/13 [facility] LAB LIVE PAGE 1 RUN TIME: [address] [place] [address] Specimen Inquiry Name: SELENA DIANE : [address]: Nathen Green Acct: [id number] Unit: [id number] AGE: 33 Location: ED Re10/20/13 SEX: F Status: DEP ER SPEC: [id number] TERRENCE: 10/20/[address]: Yvette CHOWDHURY REQ: [id number] RECD: 10/20/13 STATUS: ANDERSON AMEZQUITA DR: [facility] Madhavi Mayorga MD PC Lucy Butcher MD _ SOURCE: BLOOD,VENO SPDESC: ORDERED: Blood Cult Procedure Result Verified Site Aerobic Culture Bottle Final 10/25/13- 1206 ML No Growth Day 5 Anaerobic Culture Bottle Final 10/25/13- 1206 ML No Growth Day 5 END OF REPORT * ML=Testing performed at Main Lab DEPARTMENT OF PATHOLOGY, [address] [place] [address] Navneet Drake M.D. Director [facility] Permit #[id number] 69 -- REFERENCE VALUE -- 12.0 - 46.0 Test Performed by: [address] [address] [employer]: Stevo Cuba III, M.D. 70 Because ethnic [...] -- 12.0 - 46.0 Test Performed by: [place] [address] [employer]: Stevo Cuba III, M.D. 74 -- REFERENCE VALUE -- 12.0 - 46.0 Test Performed by: [place] [address] [employer]: Stevo Cuba III, M.D. 75 Test Performed by: [place] [address] [employer]: Stevo Cuba III, M.D. 76 @07/15/13 1121: Cell Morphology added. RFLXG=RBC MORPH. 77 -- REFERENCE VALUE -- 12.0 - 46.0 Test Performed by: [place] [address] [employer]: Stevo Cuba III, M.D. Procedures Date CPT Code Description Status 03/05/2018 46618 Neurostimulator Pulse Generator Analysis Simple Completed W/Reprogramming 10/31/2017 96437 Neurostimulator Pulse Generator Analysis Simple Completed W/Reprogramming 10/08/2017 28866 Neurostimulator Pulse Generator Analysis Simple Completed W/Reprogramming 09/18/2017 29080 Neurostimulator Pulse Generator Analysis Simple Completed W/Reprogramming 09/04/2017 39794 Neurostimulator Pulse Generator Analysis Simple Completed W/Reprogramming 08/21/2017 05419 Neurostimulator Pulse Generator Cranial Nerve First Completed Hour 07/31/2017 71393 EEG Monitoring Computer Completed 04/11/2017 95031 EEG Monitoring & Video Recording Completed 04/10/2017 43329 EEG Monitoring & Video Recording Completed 04/09/2017 94765 EEG Monitoring & Video Recording Completed 04/08/2017 27744 EEG Monitoring & Video Recording Completed 04/07/2017 23355 EEG Monitoring & Video Recording Completed 04/06/2017 26623 EEG Monitoring & Video Recording Completed 02/06/2017 51232 EEG Monitoring Computer Completed 11/08/2016 36557 ECHO Transthorasic Realtime 2D W Doppler & Color Completed Flow Hosp Encounters Type Date Location Provider CPT E/M Dx Office Visit 03/05/2018 [facility] [address] G40.219 3:00p Z87.74 F41.9 Office Visit 12/04/2017 2:30p [facility] [address] G40.219 Z87.74 F41.9 R63.4 Office Visit 10/31/2017 9:30a [facility] [address] G40.219 Z87.74 F41.9 Office Visit 10/08/2017 8:30a [facility] [address] G40.219 Z87.74 F41.9 Office Visit 09/18/2017 1:30p [facility] [address] G40.219 G43.109 Z87.74 F41.9 Office Visit 09/04/2017 8:30a [facility] [address] H53.34 G40.219 Office Visit 08/21/2017 8:30a [facility] [address] G40.219 R11.0 Z87.74 F41.9 Office Visit 07/24/2017 11:00a [facility] [place] [address] G40.219 Z87.74 F41.9 Z79.899 Office Visit 06/25/2017 9:00a [facility] [address] G40.219 Z87.74 Z79.899 F41.9 Office Visit 05/21/2017 2:00p [place] [address] G40.219 Services Of Charge Nurse Z87.74 Z79.899 F41.9 Office Visit 05/01/2017 12:00p [facility] [place] [address] G40.219 Services Of Charge Nurse Z87.74 Z79.899 F41.9 Office Visit 04/12/2017 11:16a [facility] [address] G40.219 Office Visit 04/11/2017 11:16a [facility] [place] [address] G40.219 Office Visit 04/10/2017 11:15a [facility] [address] G40.219 Office Visit 04/09/2017 11:15a [facility] [address] G40.219 Office Visit 04/08/2017 11:14a [facility] [address] G40.219 Office Visit 04/07/2017 11:14a [facility] [address] G40.219 Office Visit 04/06/2017 11:11a [facility] [place] [address] G40.219 Z87.74 Office Visit 03/28/2017 12:45p [facility] [place] [address] G40.219 Services Of Charge Nurse F41.9 Office Visit 02/27/2017 10:30a [facility] [place] [address] G40.219 Services Of Charge Nurse F41.9 Z87.74 Office Visit 01/22/2017 4:00p [facility] [address] G40.219 Services Of Charge Nurse F41.9 Z87.74 Office Visit 10/31/2016 3:45p [facility] Ezequiel Henderson 91786 G40.219 Services Of [place] Office Visit 10/25/2016 9:30a [facility] 9[address] R56.9 Assoc,pc Hospital[facility]UC[facility] Elizabeth Q27.30 Office Visit 10/24/2016 1:12p [facility] Ezequiel Malik 70075 G40.219 Chele Henderson Office Visit 10/23/2016 1:08p [facility] Ezequiel Malik 17092 G40.219 Chele Henderson Office Visit 10/23/2016 9:29a [facility] [place] [address] Q27.30 Hospitalists N.P. G40.909 Office Visit 08/04/2016 10:30a [facility] [address] G40.219 Services Of Charge Nurse Z79.899 R51 Office Visit 04/10/2016 2:30p [facility] [place] [address] G40.219 Services Of Charge Nurse Z79.899 Office Visit 01/10/2016 10:30a [facility] [address] G40.219 Services Of Charge Nurse Z79.899 Office Visit 11/01/2015 11:30a [facility] Lucy Butcher M.D. 29307 G40.211 Services Of Charge Nurse Office Visit 11/25/2014 11:15a [facility] Lucy Butcher M.D. 32490 345.41 Services Of Charge Nurse V22.2 784.0 Office Visit 04/02/2014 3:45p [facility] Lucy Butcher M.D. 04679 345.41 Services Of Charge Nurse 784.0 Office Visit 12/15/2013 1:45p [facility] Lucy Butcher M.D. 57559 345.11 Services Of Charge Nurse V15.29 Office Visit 10/13/2013 11:15a [facility] Lucy Butcher M.D. 93002 345.91 Services Of Charge Nurse Office Visit 08/01/2013 2:00p [facility] Elier Butcher M.D. 97218 345.91 Services Of Charge Nurse Office Visit 04/23/2013 2:00p [facility] Lucy Butcher M.D. 64251 345.90 Services Of Charge Nurse Office Visit 12/25/2012 2:15p [facility] Lucy Butcher M.D. 33952 345.41 Services Of Charge Nurse V22.2 Office Visit 08/21/2012 4:00p [facility] Lucy Butcher M.D. 93129 345.91 Services Of Charge Nurse Plan of Care Future Appointment(s):04/29/2018 9:00 am - Leatha Coles MD at [id number]/05/2018 - Leatha Coles MDG40.219 Local-rel symptc epi w cmplx part seiz , ntrct, w/o stat epiNew Medication:Aptiom 800 mgFollow up:: as scheduledRecommendations:Once you get Aptiom, decrease Trileptal as follows: 1 in the AM and 2 at night for 1 week then 1 twice a day for 1 week then 1 at night for 1 week then stop While you are taking both Aptiom and Trileptal you might have more side effects like feeling off balance, blurry vision, dizziness , tiredness but this should get better once we get you onto just Aptiom. This medicine will hopefully have fewer side effects and for some people controls seizrues better than Trileptal.
[2018-04-17 20:36] LABS: EGFR Non-African American 96.3 (>60)
[2018-04-17] MEDS ORDERED: Ondansetron ODT TAB* 4 MG PO ONE (20:41)
[2018-04-17] MEDS ORDERED: OXcarbazepine TAB(*) 300 MG PO ONE (21:02)
[2018-04-17 21:24] LABS: Urine Appearance Cloudy; Urine Blood Negative (Negative); Urine Color Yellow; Urine Ketones Negative (Negative); Urine Protein Negative (Negative); Urine Specific Gravity 1.012 (1.010-1.030); Urine Urobilinogen Negative (Negative)
[2018-04-17] MEDS ORDERED: Ketorolac INJ* 30 MG/ML 1 ML VIAL IV PUSH ONE (21:37)
[2018-04-17 22:06] VITALS: BP 120/85
--- NOTE | 2018-04-18 21:20 | ED ---
Natalya Bolton Rebecca, scribed for Gumaro Lee MD on 04/17/18 at 2008 . Neurological HPI - HPI Summary HPI Summary: Pt is a 37 y/o F BIBA who presents to ED s/p seizure. Unsure of how long the seizure lasted, likely about 2 minutes. Took Benadryl today. At this time, she c /o fatigue and LUE numbness. Most recent seizure prior to this one was 2017 (20 days ago). PMHx seizures. Has seen Dr. Coles. - History of Current Complaint Chief Complaint: EDSeizure Stated Complaint: SEIZURE Time Seen by Provider: 04/17/18 19:35 Hx Obtained From: Patient Hx Last Menstrual Period: non Onset/Duration: Resolved Number of Seizures: 1 Pain Intensity: 10 Pain Scale Used: 0-10 Numeric Frequency: Episodes Lasting ____ (in Mins/Days/Weeks/Years) - ~2 minutes Aggravating: Nothing Alleviating: Spontanious Resolution Associated Signs and Symptoms: Positive: Numbness - LUE - Additional Pertinent History Primary Care Physician: [id number] - Allergy/Home Medications Allergies/Adverse Reactions: Allergies Allergy/AdvReac Type Severity Reaction Status Date / Time bee venom protein (honey bee) Allergy Hives Verified 01/28/18 18:07 cephalexin [From Keflex] Allergy Hives Verified 01/28/18 18:07 morphine Allergy Hives Verified 01/28/18 18:07 mushroom Allergy Hives Verified 01/28/18 18:07 Sulfa (Sulfonamide Allergy Rash Verified 01/28/18 18:07 Antibiotics) enviromental Allergy Eyes Uncoded 01/28/18 18:07 Itchy/Swollen/Red/Watery PMH/Surg Hx/FS Hx/Imm Hx Endocrine/Hematology History: Reports: Hx Thyroid Disease, Hx Anemia - IV iron tx Denies: Hx Anticoagulant Therapy, Hx Diabetes Cardiovascular History: Denies: Hx Congestive Heart Failure, Hx Hypertension, Hx Pacemaker/ICD Comment Only: Other Cardiovascular Problems/Disorders - Arteriovenous malformation - Sx repair in 2008. Right atrial enlargement. 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 RT TEMPORAL LOBE IN 2008 [place] (removed scar tissue). 5 CSECTIONS. VNM simulater.07/2017 Hx Anesthesia Reactions: No - Immunization History Date of Tetanus Vaccine: None Date of Influenza Vaccine: None Infectious Disease History: No Infectious Disease History: Denies: Hx Hepatitis, Hx Human Immunodeficiency Virus (HIV), Traveled Outside the [place] in Last 30 Days - Family History Known Family History: Positive: Cardiac Disease, Hypertension, Other - cancer Negative: Diabetes - Social History Alcohol Use: None Hx Substance Use: No Substance Use Type: Reports: None, Prescribed Substance Use Comment - Amount & Last Used: Ativan Hx Tobacco Use: Yes Smoking Status (MU): Former Smoker Have You Smoked in the Last Year: Yes - had of close relative on 2016 so smoked to cope Review of Systems Positive: Fatigue Neurological: Other - s/p seizure Positive: Numbness - LUE numbness All Other Systems Reviewed And Are Negative: Yes Physical Exam - Summary Physical Exam Summary: VITAL SIGNS: Reviewed. GENERAL: Patient is a well-developed and nourished female who is lying comfortable in the stretcher. Patient is not in any acute respiratory distress. HEAD AND FACE: No signs of trauma. No ecchymosis, hematomas or skull depressions. No sinus tenderness. EYES: PERRLA, EOMI x 2, No injected conjunctiva, no nystagmus. EARS: Hearing grossly intact. Ear canals and tympanic membranes are within normal limits. MOUTH: Oropharynx within normal limits. NECK: Supple, trachea is midline, no adenopathy, no JVD, no carotid bruit, no c- spine tenderness, neck with full ROM. CHEST: Symmetric, no tenderness at palpation LUNGS: Clear to auscultation bilaterally. No wheezing or crackles. CVS: Regular rate and rhythm, S1 and S2 present, no murmurs or gallops appreciated. ABDOMEN: Soft, non-tender. No signs of distention. No rebound no guarding, and no masses palpated. Bowel sounds are normal. EXTREMITIES: FROM in all major joints, no edema, no cyanosis or clubbing. NEURO: Alert and oriented x 3. No acute neurological deficits. Speech is normal and follows commands. Triage Information Reviewed: Yes Vital Signs On Initial Exam: Initial Vitals Temp Pulse Resp BP Pulse Ox 99.9 F 120 18 128/91 95 04/17/18 19:43 04/17/18 19:43 04/17/18 19:43 04/17/18 19:43 04/17/18 19:43 Vital Signs Reviewed: Yes Diagnostics - Vital Signs Vital Signs Temp Pulse Resp BP Pulse Ox 04/17/18 19:43 99.9 F 120 18 128/91 95 - Laboratory Lab Results: Lab Results 04/17/18 04/17/18 04/17/18 Range/Units 19:58 19:59 19:59 WBC 6.8 (3.5-10.8) 10^3/ul RBC 4.44 (4.0-5.4) 10^6/ul Hgb 13.3 (12.0-16.0) g/dl Hct 39 (35-47) % MCV 89 (80-97) fL MCH 30 (27-31) pg MCHC 34 (31-36) g/dl RDW 13 (10.5-15) % Plt Count 288 (150-450) 10^3/ul MPV 7.0 L (7.4-10.4) um3 Neut % (Auto) 49.8 (38-83) % Lymph % (Auto) 38.7 (25-47) % Pacific % (Auto) 8.6 H (0-7) % Eos % (Auto) 2.3 (0-6) % Baso % (Auto) 0.6 (0-2) % Absolute Neuts (auto) 3.4 (1.5-7.7) 10^3/ul Absolute Lymphs (auto) 2.6 (1.0-4.8) 10^3/ul Absolute Monos (auto) 0.6 (0-0.8) 10^3/ul Absolute Eos (auto) 0.2 (0-0.6) 10^3/ul Absolute Basos (auto) 0 (0-0.2) 10^3/ul Absolute Nucleated RBC 0 10^3/ul Nucleated RBC % 0 INR (Anticoag Therapy) 0.90 (0.77-1.02) Sodium 137 L (139-145) mmol/L Potassium 3.7 (3.5-5.0) mmol/L Chloride 103 (101-111) mmol/L Carbon Dioxide 21 L (22-32) mmol/L Anion Gap 13 H (2-11) mmol/L BUN 9 (6-24) mg/dL Creatinine 0.69 (0.51-0.95) mg/dL Est GFR ( Amer) 123.8 (>60) Est GFR (Non-Af Amer) 96.3 (>60) BUN/Creatinine Ratio 13.0 (8-20) Glucose 107 H (70-100) mg/dL Lactic Acid (0.5-2.0) mmol/L Calcium 10.0 (8.6-10.3) mg/dL Magnesium 2.1 (1.9-2.7) mg/dL Total Bilirubin 0.30 (0.2-1.0) mg/dL AST 18 (13-39) U/L ALT 11 (7-52) U/L Alkaline Phosphatase 37 (34-104) U/L Total Protein 6.8 (6.4-8.9) g/dL Albumin 4.6 (3.2-5.2) g/dL Globulin 2.2 (2-4) g/dL Albumin/Globulin Ratio 2.1 (1-3) Serum Alcohol < 10 (<10) mg/dL 04/17/18 Range/Units 19:59 WBC (3.5-10.8) 10^3/ul RBC (4.0-5.4) 10^6/ul Hgb (12.0-16.0) g/dl Hct (35-47) % MCV (80-97) fL MCH (27-31) pg MCHC (31-36) g/dl RDW (10.5-15) % Plt Count (150-450) 10^3/ul MPV (7.4-10.4) um3 Neut % (Auto) (38-83) % Lymph % (Auto) (25-47) % Pacific % (Auto) (0-7) % Eos % (Auto) (0-6) % Baso % (Auto) (0-2) % Absolute Neuts (auto) (1.5-7.7) 10^3/ul Absolute Lymphs (auto) (1.0-4.8) 10^3/ul Absolute Monos (auto) (0-0.8) 10^3/ul Absolute Eos (auto) (0-0.6) 10^3/ul Absolute Basos (auto) (0-0.2) 10^3/ul Absolute Nucleated RBC 10^3/ul Nucleated RBC % INR (Anticoag Therapy) (0.77-1.02) Sodium (139-145) mmol/L Potassium (3.5-5.0) mmol/L Chloride (101-111) mmol/L Carbon Dioxide (22-32) mmol/L Anion Gap (2-11) mmol/L BUN (6-24) mg/dL Creatinine (0.51-0.95) mg/dL Est GFR ( Amer) (>60) Est GFR (Non-Af Amer) (>60) BUN/Creatinine Ratio (8-20) Glucose (70-100) mg/dL Lactic Acid 3.4 H* (0.5-2.0) mmol/L Calcium (8.6-10.3) mg/dL Magnesium (1.9-2.7) mg/dL Total Bilirubin (0.2-1.0) mg/dL AST (13-39) U/L ALT (7-52) U/L Alkaline Phosphatase (34-104) U/L Total Protein (6.4-8.9) g/dL Albumin (3.2-5.2) g/dL Globulin (2-4) g/dL Albumin/Globulin Ratio (1-3) Serum Alcohol (<10) mg/dL Result Diagrams: 04/17/18 19:59 04/17/18 19:59 Lab Statement: Any lab studies that have been ordered have been reviewed, and results considered in the medical decision making process. - EKG 1999 Cardiac Rate: Tachycardia - 120 bpm EKG Rhythm: Sinus Tachycardia EKG Interpretation: No ST elevations Re-Evaluation - Re-Evaluation First Eval Re-Evaluation Time: 21:37 Comment: Discussed results. Requesting Toradol. Course/Dx - Course Assessment/Plan: This patient is a 37 she will female who presents to the emergency department with chief complaint of having a seizure. Paramedics reported the patient had an episode of tonic clonic seizure which lasted approximately 1-2 minutes. Patient has past medical history significant for a predicted syndrome, chronic anemia, history of AV malformation. The patient is taking Trileptal 600 mg twice a day and Brivisct 100 mg BID. Blood work without any significant abnormality except for lactic acid of 2.4. The patient is alert oriented 3. The patient was observed for a couple hours and symptoms did not return. I discussed the case with Dr. Liu from neurology and he recommends that the patient to be given an extra dose of Trileptal, for the patient to take an extra dose of trileptal daily at mid day plan follow-up with Dr. Coles. I discussed all the findings and test results with the patient. Patient was instructed to return to the emergency room immediately if any of the symptoms return or worsens. Plan of care was discussed with the patient and understands and agrees. All questions were answered at patient satisfaction. There were no further complaints or concerns. Lung exam before discharge: CTA B/L. Good air exchange. No wheezing or crackles heard. CVS: S1 and S2 present. No murmurs appreciated. Patient is alert and oriented x 3. Patient is hemodynamically stable. Patient will be discharged home with follow up PCP in the next 2-3 days - Diagnoses Provider Diagnoses: Seizure - Physician Notifications Discussed Care Of Patient With: Zion Liu Time Discussed With Above Provider: 20:55 Instructed by Provider To: Other - Increase the trileptal dose and D/C the pt. Discharge - Sign-Out/Discharge Documenting (check all that apply): Discharge/Admit/Transfer - Discharge - Discharge Plan Condition: Stable Disposition: HOME Patient Education Materials: Epilepsy (ED) Referrals: Leatha oCles MD [Medical Doctor] - 3 Days Madhavi Mayorga MD [Primary Care Provider] - 3 Days Additional Instructions: RETURN TO ED FOR ANY NEW OR WORSENING SYMPTOMS. The documentation as recorded by the Natalya weller Rebecca accurately reflects the service I personally performed and the decisions made by , Gumaro Lee MD.
== END 2018-04-17 22:03 | disposition home or self-care (01) ==
LOC: ED 19:22
DX: G40.409 Other generalized epilepsy and epileptic syndromes, not intractable, without status epilepticus (principal); D64.9 Anemia, unspecified; Z87.74 Personal history of (corrected) congenital malformations of heart and circulatory system; Z87.891 Personal history of nicotine dependence; Z88.5 Allergy status to narcotic agent; Z88.3 Allergy status to other anti-infective agents; Z88.2 Allergy status to sulfonamides
CPT/HCPCS: 36415; 80053; 80183; 80320; 81003; 83605; 83735; 85025; 85610; 93005; 96374; 99282; A9270-GY; G0480; J1885

== ENCOUNTER 2018-05-03 18:42 | Emergency (ER) | payer OTHER ==
[2018-05-03] MEDS ORDERED: LORazepam INJ* 2 MG/ML 1 ML VIAL IV PUSH ONE (19:24)
[2018-05-03] MEDS ORDERED: Ondansetron INJ* 2 MG/ML VIAL IV ONE (19:25)
[2018-05-03 19:46] LABS: ABS Basophils 0 10^3/ul (0-0.2); ABS Eosinophils 0.3 10^3/ul (0-0.6); ABS Lymphocytes 2.6 10^3/ul (1.0-4.8); ABS Monocytes 0.6 10^3/ul (0-0.8); ABS Neutrophils 3.1 10^3/ul (1.5-7.7); ABS Nucleated RBC 0 10^3/ul; Eosinophil % 4.5 % (0-6); Hematocrit 40 % (35-47); Hemoglobin 13.5 g/dl (12.0-16.0); Lymphocyte % 39.4 % (25-47); Mean Corpuscular HGB Conc 34 g/dl (31-36); Mean Corpuscular Hemoglobin 30 pg (27-31); Mean Corpuscular Volume 89 fL (80-97); Mean Platelet Volume 6.8 um3 (7.4-10.4); Nucleated Red Blood Cells % 0.1; Platelet Count 294 10^3/ul (150-450); Red Blood Count 4.47 10^6/ul (4.00-5.40); Red Cell Distribution Width 13 % (10.5-15); White Blood Count 6.7 10^3/ul (3.5-10.8)
--- OUTSIDE RECORDS SUMMARY | 2018-05-03 19:51 | XMS REPORT ---
:1980 External Reference #:[id number] Author Organization [facility] Address [address] [place] [address] [place] [address] Phone [phone] Care Team Providers Name Role Phone Madhavi Mayorga MD Primary Care Physician Unavailable Payers Type Date Identification Numbers Payment Provider Subscriber Commercial Effective: Policy Number: [id number] [employer] Selena Diane 2016 Medicaid PayID: [id number] [address] [place] [id number] Commercial Expires: 2017 Policy Number: [employer] Selena Matos [id number] [employer] PayID: [id number] [address] [place] [address] Problems Date Description Provider Status Onset: 11/25/2014 [...] Aptiom 04/05 Active Tablets 800mg 30tab take 1.5 G40.219 Leatha Coles s tabs by MD mouth every day Sertraline HCL 12/07 Active [...] Active Tablets ER take 1 Unknown B-Complex/Vitam tablet in C CR once daily Potassium Active Tablets ER 10Meq take 1 Unknown Chloride ER / tablet by mouth once daily Oxcarbazepine Active Tablets 300mg 90tab 1 tab Leathapascale Coles s twice a MD day Ferrous Sulfate Active Tablets 325(65Fe) 1 tab po Unknown /0000 mg qd Levothyroxine Active Tablets 25mcg 1 by Unknown Sodium /0000 mouth every day Dicyclomine HCL Active Capsules 10mg one Unknown / capsule tid Skin Hair Nails Active 1 tab a 0000 day Vitamin B- Active Tablets Sub 1 by Unknown mouth every day Klonopin 02/11 Hx Tablets 0.5mg 6tabs 1 tablet by mouth MD Lyndsey - twice a 03/05 day Hydroxyzine HCL 12/04 Hx Tablets 25mg 60tab 1/2 to 1 Leatha Coles s tablet as MD - needed 12/04 [...] x1 week then 3 tablets at bedtime [id number] then 4 tablets at bedtime Citalopram 01/22 [...] 300mg/5ML 750ml 5ml by Leatha Coles mouth MD - twice 10/31 Folic Acid 09/02 Hx Tablets 1mg 60tab take two s by mouth Guadalupe, - each day M.D. 10/13 Levetiracetam 08/21 Hx Solution 100mg/ml 1200u take 4 Leatha Coles nits teaspoons - in the Am 05/28 and teaspoons in the PM, shake before using Flintstones Hx Chewtabs 60mg Unknown - 10/13 Vitamin B12 Hx Tablets ER 1000mcg 30tab 1 po qd s - 10/13 Lorazepam Hx Tablets 1mg 30tab 1 by Leatha Coles s mouth MD - three 02/13 times day as needed for aura Nitrofurantoin Hx Capsules 100mg 14cap 1 cap po Unknown Monohydrate /0000 s bid x 7 - days 12/15 Doxycycline Hx Capsules 100mg Stevanovic, Hyclate / MD Madhavi - 03/19 Motrin Pilo Hx [...] by Unknown taminophen /0000 mouth - every 4- 09/07 6 hours /2016 as needed pain Hydrocortisone Hx Cream 1% use Unknown /0000 sparingly - twice a 09/07 day x weeks Vital Signs Date Vital Result Comment 04/29/2018 Height 59 inches 4'11" Weight 83.12 lb Heart Rate 68 /min BP Systolic 100 mmHg BP Diastolic 78 mmHg BMI (Body Mass Index) 16.8 kg/m2 04/05/2018 Height 59 inches 4'11" Weight 80.25 [...] ng/mL 30-300 Desmethylclobazam 1140 ng/mL 300-3000 2 Laboratory test finding 07/18/2017 Levetiracetam (Keppra) <2.0 g/mL 3 Trileptal (Oxcarbazepine) 35 g/mL 3 - 35 4 Urine Culture And 07/18/2017 Urine Culture SEE RESULT BELOW 5 Sensitivities CBC Auto Diff 07/18/2017 White Blood Count [...] Inr/Protime 07/18/2017 Inr 0.92 0.89-1.11 Laboratory test finding 07/18/2017 Partial Thrombo Time 32.2 seconds 26.0 -36.3 PTT Laboratory test finding 07/18/2017 Phosphorus 3.3 mg/dL [...] Non- 113.8 >60 Egfr 146.3 >60 6 Urinalysis Profile 07/18/2017 Urine Color Yellow Urine Appearance Cloudy Urine Specific Tryon 1.015 1.010-1.030 Urine pH 5.0 5-9 Urine Urobilinogen Negative Negative Urine Ketones Negative Negative Urine Protein Negative Negative Urine Leukocytes Trace Negative Urine Blood 1+ Negative Urine Nitrite Negative Negative Urine Bilirubin Negative Negative Urine Glucose Negative Negative Urine White Blood Cell Trace(0-5/hpf) Absent Urine Red Blood Cell Trace(0-2/hpf) Absent Urine Bacteria Absent Absent Urine Squamous Epithelial Cell Present Absent CBC Auto Diff 06/26/2017 White Blood Count [...] 2.0 mg/dL 1.9-2.7 Laboratory test finding 05/20/2017 Levetiracetam (Keppra) 28.8 g/mL 10 Laboratory test finding 05/20/2017 Lactic Acid 1.0 mmol/L 0.5-2.0 11 CBC Auto Diff 05/20/2017 White Blood Count [...] Egfr Non- 118.3 >60 Egfr 152.1 >60 12 Laboratory test finding 05/20/2017 Magnesium 2.2 mg/dL 1.9-2.7 Carbamazepine (Tegretol) 2.0 g/mL Low 4.0-12.0 Inr/Protime 05/20/2017 Inr 0.90 0.89-1.11 CBC Auto Diff 05/05/2017 White Blood Count [...] Color Yellow Urine Appearance Cloudy Urine Specific [place] 1.013 1.010-1.030 Urine pH 7.0 5-9 Urine [...] U/L 10-223 Alcohol < 10 mg/dL <10 Urine Drug SCR ED 04/27/2017 Amphetamine Ur [...] Phencyclidine Screen None Detected None Detect 26 Inr/Protime 04/27/2017 Inr 0.93 0.89-1.11 Laboratory test finding 04/27/2017 Partial Thrombo Time 31.1 seconds 26.0 -36.3 PTT CBC Auto Diff 04/27/2017 White Blood Count [...] 0-2 Nucleated Red Blood Cells % 0.1 Urinalysis Profile 04/27/2017 Urine Color Yellow Urine Appearance Cloudy Urine Specific [place] 1.018 1.010-1.030 Urine pH 7.0 5-9 Urine Urobilinogen Negative Negative Urine Ketones Negative Negative Urine Protein Negative Negative Urine Leukocytes Trace Negative Urine Blood Negative Negative * * Negative 27 Urine Nitrite Negative Negative Urine Bilirubin Negative Negative Urine Glucose Negative Negative Urine White Blood Cell Trace(0-5/hpf) Absent Urine Red Blood Cell Trace(0-2/hpf) Absent Urine Bacteria Absent Absent Urine Squamous Epithelial Cell Present Absent Urine Amorphous Crystals Present Absent Laboratory test finding 04/27/2017 Lactic Acid 0.6 mmol/L 0.5-2.0 28 Comp Metabolic Panel 04/27/2017 Sodium 135 mmol/L [...] Non- 118.3 >60 Egfr 152.1 >60 29 Laboratory test finding 04/21/2017 Lactic Acid 1.0 mmol/L 0.5-2.0 30 Levetiracetam (Keppra) 35.0 g/mL 31 Trileptal (Oxcarbazepine) 28 g/mL 3 - 35 32 CBC Auto Diff 04/21/2017 White Blood [...] 0-2 Nucleated Red Blood Cells % 0 Urinalysis Profile 04/21/2017 Urine Color Yellow Urine Appearance Cloudy Urine Specific [place] 1.032 High 1.010-1.030 Urine pH 5.0 5-9 [...] Epithelial Cell Present Absent Comp Metabolic Panel 04/21/2017 Sodium 137 mmol/L [...] Egfr Non- 98.5 >60 Egfr 126.6 >60 33 Laboratory test finding 04/21/2017 Magnesium 2.2 mg/dL 1.9-2.7 Creatine Kinase(CK) 66 U/L 10-223 C Reactive Protein 1.60 mg/L < 5.00 34 HCG < 0.60 mIU/mL 35 Laboratory test finding 03/19/2017 Clotest SEE RESULT BELOW 36 Laboratory test finding 11/23/2016 Trileptal 11 g/mL 3 - 35 37 (Oxcarbazepine) Levetiracetam (Keppra) 63.6 g/mL 38 Laboratory test finding 11/24/2015 Levetiracetam (Keppra) 21.7 g/mL 39 Urinalysis Profile 07/14/2015 Urine Color Yellow Urine Appearance Cloudy Urine Specific [place] 1.017 1.010-1.030 Urine pH 6.0 5-9 Urine Urobilinogen Negative Negative Urine Ketones Negative Negative Urine Protein Negative Negative Urine Leukocytes 3+ Negative Urine Blood 2+ Negative Urine Nitrite Negative Negative Urine Bilirubin Negative Negative Urine Glucose Negative Negative Urine White Blood Cell 3+(>20/hpf) Absent Urine Red Blood Cell 3+(>10/hpf) Absent Urine Bacteria 1+ Absent Urine Squamous Epithelial Cell Present Absent Laboratory test finding 07/14/2015 Urine Culture And SEE RESULT BELOW 40 Sensitivities Urinalysis Profile 07/10/2015 Urine Color Yellow Urine Appearance Cloudy Urine Specific [place] 1.017 1.010-1.030 Urine pH 5.0 5-9 Urine [...] 07/10/2015 Urine Culture And SEE RESULT BELOW 41 Sensitivities Blood Culture SEE RESULT BELOW 42 CBC Auto Diff 07/10/2015 White Blood [...] 0-2 Nucleated Red Blood Cells % 0.4 Laboratory test finding 07/10/2015 Lactic Acid 1.4 mmol/L 0.5-2.2 Comp Metabolic Panel 07/10/2015 Sodium 138 mmol/L [...] Egfr Non- 152.6 >60 Egfr 196.3 >60 43 Laboratory test finding 07/10/2015 C Reactive Protein 106.54 mg/L High &lt ; 5.00 44 Inr/Protime 07/10/2015 Inr 0.83 0.78-1.07 Laboratory test finding 07/10/2015 Partial Thrombo Time 28.1 seconds 26.0 -36.3 PTT CBC Auto Diff 06/05/2015 White Blood Count [...] Natriuretic Peptide BNP 104 pg/mL High 47 CBC No Diff 01/12/2015 White Blood Count [...] 01/12/2015 Rubella Screen Equivocal IU/mL Immune 48, 49 Type & Screen 01/12/2015 Patient Blood Type O Positive 48 Antibody Screen NEGATIVE 48 Laboratory test finding 01/12/2015 Hemoglobin A1c 4.9 % Less than 6.0 48 , 50 Levetiracetam 16.8 g/mL 48, 51 Oxcarbazepine 19 g/mL 3 - 35 48, 52 Syphilis Screen 01/12/2015 Syphilis IgG TNP Nonreactive 48 RPR Nonreactive Nonreactive 48 RPR Titer TNP 48 Pediatric/Maternal YES 48 Laboratory test 01/12/2015 Hepatitis B Surface Nonreactive Nonreactive 48, 53 finding Antigen HIV 1/2 AB Evaluation 01/12/2015 HIV 1 2 Antibody Nonreactive Nonreactive 48, 54 Comp Metabolic Panel 04/03/2014 Sodium 138 mmol/L [...] 128.1 >60 55 Egfr 164.7 >60 55, 56 Laboratory test finding 04/03/2014 Levetiracetam 8.5 g/mL 55, 57 Oxcarbazepine 23 g/mL 3 - 35 55, 58 Laboratory test finding 01/28/2014 Inr [...] Color Yellow Urine Appearance Turbid Urine Specific [place] 1.024 1.010-1.030 Urine Esterase Negative Negative Urine Nitrate Negative Negative Urine Urobilinogen Negative E.U./dL Negative Urine Protein Negative mg/dL Negative Urine pH 6.5 5-9 Urine Blood Negative Negative Urine Ketones Negative mg/dL Negative Urine Bilirubin Negative Negative Urine Glucose Negative mg/dL Negative Urinalysis 08/06/2013 Urine Color Yellow Urine Appearance Clear Urine Specific [place] 1.016 1.010-1.030 Urine Esterase Negative Negative Urine [...] test finding 07/15/2013 Cell Morphology 1+ 76 CBC Auto Diff 06/07/2013 White Blood Count [...] 10^3/uL 0-0.2 Abs Nucleated RBC 0 10^3/uL Manual Differential 06/07/2013 Neutrophil % 48 % [...] test finding 06/07/2013 Levetiracetam 25.5 g/mL 77 1 ADDITIONAL INFORMATION This test was developed and its performance characteristics determined by [facility] in a manner consistent with CLIA requirements. This test has not been cleared or approved by the U.S. Food and Drug Administration. Test Performed by: [facility] - [address] [address] This test was developed and its performance characteristics determined by [employer]. It has not been cleared or approved by the Food and Drug Administration. Test Performed by: [employer] [address] [place] [address] 3 REFERENCE VALUE 12.0 - 46.0 ADDITIONAL INFORMATION This test was developed and its performance characteristics determined by [facility] in a manner consistent with CLIA requirements. This test has not been cleared or approved by the U.S. Food and Drug Administration. Test Performed by: [facility] - [address] [address] 4 ADDITIONAL INFORMATION This test was developed and its performance characteristics determined by [facility] in a manner consistent with CLIA requirements. This test has not been cleared or approved by the U.S. Food and Drug Administration. Test Performed by: [facility] - [address] [address] 5 SEE RESULT BELOW Name: SELENA DIANE : [address]: Jackson VALE Acct: [id number] Unit: [id number] AGE: 36 Location: LAB Re07/18/17 SEX: F Status: REG REF SPEC: [id number] TERRENCE: 07/18/[address]: Jackson VALEP REQ: [id number] RECD: 07/18/17 STATUS: ANDERSON FRYE DR: Madhavi Mayorga MD PC _ SOURCE: URINE SPDESC: ORDERED: Urine Culture Procedure Result Reported Site Urine Culture Final 07/19/17- 1439 ML No Growth (<1,000 CFU/mL) * ML - MAIN LAB ([facility]) . END OF REPORT * ML=Testing performed at Main Lab DEPARTMENT OF PATHOLOGY, [address] [place] [address] Navneet Drake M.D. Director [facility] # [id number] 6 Because ethnic data is not always [...] 5 Kidney failure <15 (or dialysis) 7 [facility] Severe Sepsis and Septic Shock [...] developed and its performance characteristics determined by [facility] in a manner consistent with CLIA requirements. This test has not been cleared or approved by the U.S. Food and Drug Administration. Test Performed by: [facility] - [address] [address] 11 [facility] Severe Sepsis and Septic Shock Management Bundle Measure requires all lactic acids initially measuring >2.0 mmol/L be repeated. 12 Because ethnic data is not always [...] 5 Kidney failure <15 (or dialysis) 13 *Ascorbic acid is present which may [...] (or dialysis) 15 SEE RESULT BELOW Name: ROXISELENA CEBALLOS : [address]: Jackie Snow MD Acct: [id number] Unit: [id number] AGE: 36 Location: ED Re05/05/17 SEX: F Status: DEP ER SPEC: [id number] TERRENCE: 05/05/[address]: Jackie Snow MD REQ: [id number] RECD: 05/05/17 STATUS: ANDERSON AMEZQUITA DR: Leatha Coles MD _ SOURCE: URINE SPDESC: ORDERED: Urine Culture Procedure Result Reported Site Urine Culture Final 05/06/17- 1626 ML No growth of clinically significant organisms * ML - [facility] ([facility]) . END OF REPORT * ML=Testing performed at Main Lab DEPARTMENT OF PATHOLOGY, [address] [place] [address] Navneet Drake M.D. Director [facility] # [id number] 16 REFERENCE VALUE 12.0 - 46.0 ADDITIONAL INFORMATION This test was developed and its performance characteristics determined by [facility] in a manner consistent with CLIA requirements. This test has not been cleared or approved by the U.S. Food and Drug Administration. Test Performed by: [facility] - [address] [address] 17 [facility] Severe Sepsis and Septic Shock [...] developed and its performance characteristics determined by [facility] in a manner consistent with CLIA requirements. This test has not been cleared or approved by the U.S. Food and Drug Administration. Test Performed by: [facility] [place] - [address] [address] ADDITIONAL INFORMATION This test was developed and its performance characteristics determined by [facility] in a manner consistent with CLIA requirements. This test has not been cleared or approved by the U.S. Food and Drug Administration. Test Performed by: [facility] [place] - [address] [address] 21 REFERENCE VALUE 12.0 - 46.0 ADDITIONAL INFORMATION This test was developed and its performance characteristics determined by [facility] in a manner consistent with CLIA requirements. This test has not been cleared or approved by the U.S. Food and Drug Administration. Test Performed by: [facility] - [address] [address] 22 ADDITIONAL INFORMATION This test was developed and its performance characteristics determined by [facility] in a manner consistent with CLIA requirements. This test has not been cleared or approved by the U.S. Food and Drug Administration. Test Performed by: [facility] - [address] [address] 23 SEE RESULT BELOW Name: SELENA DIANE : [address]: Flory Lei MD Acct: [id number] Unit: [id number] AGE: 36 Location: ED Re04/27/17 SEX: F Status: DEP ER SPEC: [id number] TERRENCE: 04/27/[address]: Flory Lei MD REQ: [id number] RECD: 04/27/17 STATUS: ANDERSON AMEZQUITA DR: Leatha Coles MD _ SOURCE: URINE SPDESC: ORDERED: Urine Culture Procedure Result Reported Site Urine Culture Final 04/30/17- 820 ML Organism 1 ESCHERICHIA COLI [place] Count 25-50,000 (Moderate) CFU/ML 1. ESCHERICHIA COLI [...] antibiotic reporting. * ML - MAIN LAB ([facility]) . END OF REPORT * ML=Testing performed at Main Lab DEPARTMENT OF PATHOLOGY, [address] [place] [address] Navneet Drake M.D. Director [facility] # [id number] 24 Presumptive Positive Presumptive positive results are unconfirmed. 25 Presumptive Positive Presumptive positive results are unconfirmed. 26 The urine specimen was tested at the listed cutoffs: Drug class test level (ng/mL) Amphetamines 500 Barbiturates 200 Benzodiazepine metabolites 200 Cocaine metabolites 150 Cannabinoids 50 Opiates 300 Pcp 25 Specimen was received without chain of custody. Results should be used for medical purposes only. 27 *Ascorbic acid is present which may interfere with detection of blood. 28 [facility] Severe Sepsis and Septic Shock Management Bundle Measure requires all lactic acids initially measuring >2.0 mmol/L be repeated. 29 Because ethnic data is not always [...] 5 Kidney failure <15 (or dialysis) 30 [facility] Severe Sepsis and Septic Shock Management Bundle Measure requires all lactic acids initially measuring >2.0 mmol/L be repeated. 31 REFERENCE VALUE 12.0 - 46.0 ADDITIONAL INFORMATION This test was developed and its performance characteristics determined by [facility] in a manner consistent with CLIA requirements. This test has not been cleared or approved by the U.S. Food and Drug Administration. Test Performed by: [facility] - [address] [place] [address] 32 ADDITIONAL INFORMATION This test was developed and its performance characteristics determined by [facility] in a manner consistent with CLIA requirements. This test has not been cleared or approved by the U.S. Food and Drug Administration. Test Performed by: [facility] - [address] [address] 33 Because ethnic data is not always readily [...] 15-29 5 Kidney failure <15 (or dialysis) 34 Acute inflammation: >10.00 35 <5.0 Negative 5.0 - 25.0 Indeterminate (Repeat testing recommended after 72 hours) >25.0 Positive Perimenopausal women can display HCG levels of up to 20 mIU/mL 36 SEE RESULT BELOW Name: SELENA DIANE : [address]: Jae George MD Acct: [id number] Unit: [id number] AGE: 36 Location: ENDO Re03/19/17 SEX: F Status: REG REF SPEC: [id number] TERRENCE: 03/19/17-1231 [facility] [address]: Jae George MD REQ: [id number] RECD: 03/19/17 STATUS: ANDERSON AMEZQUITA DR: Leatha Mayorga MD PC _ SOURCE: GAS ANTRUM SPDESC: ORDERED: Clotest Procedure Result Reported Site Clotest Final 03/20/17- 15 ML Clotest Negative * ML - MAIN LAB ([facility]) . END OF REPORT * ML=Testing performed at Main Lab DEPARTMENT OF PATHOLOGY, [address] [place] [address] Navneet Drake M.D. Director [facility] # [id number] 37 ADDITIONAL INFORMATION This test was developed and its performance characteristics determined by [facility] in a manner consistent with CLIA requirements. This test has not been cleared or approved by the U.S. Food and Drug Administration. Test Performed by: [facility] [place] [address] Lead Care Manager: Matti Gould II, M.D., Ph.D. 38 REFERENCE VALUE 12.0 - 46.0 ADDITIONAL INFORMATION This test was developed and its performance characteristics determined by [facility] in a manner consistent with CLIA requirements. This test has not been cleared or approved by the U.S. Food and Drug Administration. Test Performed by: [facility] [place] [address] Lead Care Manager: Matti Gould II, M.D., Ph.D. 39 REFERENCE VALUE 12.0 - 46.0 Test Performed by: [facility] [place] [address] Lead Care Manager: Matti Gould II, M.D., Ph.D. 40 SEE RESULT BELOW Name: SELENA DIANE : [address]: Matti Romero MD Acct: [id number] Unit: [id number] AGE: 34 Location: ED Re07/14/15 SEX: F Status: DEP ER SPEC: [id number] TERRENCE: 07/14/15-[address] [facility] [address]: Matti Romero MD REQ: [id number] RECD: 07/14/15 STATUS: ANDERSON AMEZQUITA DR: Madhavi Mayorga MD PC Lucy Butcher MD _ SOURCE: URINE SPDESC: ORDERED: Urine Culture Procedure Result Verified Site Urine Culture Final 07/16/15- 0950 ML Organism 1 ESCHERICHIA COLI [place] Count >100,000 (Many) CFU/ML 1. ESCHERICHIA COLI [...] antibiotic reporting. * ML - MAIN LAB ([facility]) . END OF REPORT * ML=Testing performed at Main Lab DEPARTMENT OF PATHOLOGY, [address] [place] [address] Navneet Drake M.D. Director [facility] # [id number] 41 SEE RESULT BELOW Name: SELENA DIANE Shawna : [address]: Matti Romero MD Acct: [id number] Unit: [id number] AGE: 34 Location: ED Re07/10/15 SEX: F Status: REG ER SPEC: [id number] TERRENCE: 07/10/[address]: Matti Romero MD REQ: [id number] RECD: 07/10/15 STATUS: ANDERSON AMEZQUITA DR: Madhavi Mayorga MD PC Lucy Butcher MD _ [facility] ORDERED: Urine Culture Procedure Result Verified Site Urine Culture Final 07/12/15- 0943 ML Organism 1 ESCHERICHIA COLI [place] Count >100,000 (Many) CFU/ML 1. ESCHERICHIA COLI [...] antibiotic reporting. * ML - MAIN LAB ([facility]) . END OF REPORT * ML=Testing performed at Main Lab DEPARTMENT OF PATHOLOGY, [address] [place] [address] Navneet Drake M.D. Director [facility] # [id number] 42 SEE RESULT BELOW Name: SELENA DIANE Shawna : [address]: Matti Romero MD Acct: [id number] Unit: [id number] AGE: 34 Location: ED Re07/10/15 SEX: F Status: REG ER SPEC: [id number] TERRENCE: 07/10/15-[address]: Matti Romero MD REQ: [id number] RECD: 07/10/15 STATUS: ANDERSON AMEZQUITA DR: Madhavi Mayorga MD PC Lucy Butcher MD _ SOURCE: BLOOD,VENO SPDESC: ORDERED: Blood Cult COMMENTS: Patient is On Antibiotics? NO Procedure Result Verified Site Aerobic Culture Bottle Final 07/15/152124 ML No Growth Day 5 Anaerobic Culture Bottle Final 07/15/152124 ML No Growth Day 5 * ML - MAIN LAB ([facility]) . END OF REPORT * ML=Testing performed at Main Lab DEPARTMENT OF PATHOLOGY, [address] [place] [address] Navneet Drake M.D. Director [facility] # [id number] 43 Because ethnic data is not always [...] 5 Kidney failure <15 (or dialysis) 44 Acute inflammation: >10.00 45 Because ethnic data is not always [...] 0.03 ng/mL Not supportive of diagnosis of MD 0.03 - 0.50 ng/mL Indeterminate: suggest serial studies if clinically indicated. Greater than 0.5 ng/mL Consistent with diagnosis of MD 47 >100 to <200 pg/mL: likely compensated congestive heart failure (CHF) 200 to 400 pg/mL: likely moderate CHF >400 pg/mL: likely moderate to severe CHF 48 please also fax results to Dr. Andriy Albrecht [phone] ~~please also fax results to Dr. Andriy Albrecht [phone] please also fax results to Dr. Andriy Albrecht [phone] please also fax results to Dr. Andriy Albrecht [phone] please also fax results to Dr. Andriy Albrecht [phone] 49 please also fax results to Dr. Andriy Albrecht [phone] 50 Therapeutic target for the treatment of diabetes Mellitus patients is <7% HBA1C, and in selective patients <6.0%.Please refer to [place] [employer] Diabetic care guidelines for further information. 51 REFERENCE VALUE 12.0 - 46.0 Test Performed by: [place] [address] Lead Care Manager: Matti Gould II, M.D., Ph.D. 52 Test Performed by: [place] [address] Lead Care Manager: Matti Gould II, M.D., Ph.D. 53 please also fax results to Dr. Andriy Albrecht [phone] YES 54 It is recognized that currently available assays [...] 95% confidence interval of 99.78 to 99.96%. 55 draw in am, prior to first dose. 56 Because ethnic data is not always [...] 5 Kidney failure <15 (or dialysis) 57 -- REFERENCE VALUE -- 12.0 - 46.0 Test Performed by: [place] [address] Lead Care Manager: Stevo Cuba III, M.D. 58 Test Performed by: [place] [address] Lead Care Manager: Stevo Cuba III, M.D. 59 Normal Range 180 to 914 Indeterminate Range 145 to 180 Deficient Range <145 60 -- REFERENCE VALUE -- 12.0 - 46.0 Test Performed by: [place] [address] Lead Care Manager: Stevo Cuba III, M.D. 61 Test Performed by: [place] [address] Lead Care Manager: Stevo Cuba III, M.D. 62 This test detects intact HCG only and is indicated for the early detection of . 63 RUN DATE: 10/25/13 [facility] LAB LIVE PAGE 1 RUN TIME: [address] [place] [address] Specimen Inquiry Name: SELENA DIANE : [address]: Nathen Green Acct: [id number] Unit: [id number] AGE: 33 Location: ED Re10/20/13 SEX: F Status: DEP ER SPEC: [id number] TERRENCE: 10/20/[address]: Yvette CHOWDHURY REQ: [id number] RECD: 10/20/13 STATUS: ANDERSON AMEZQUITA DR: [facility] Madhavi Mayorga MD PC Lucy Butcher MD _ SOURCE: BLOOD,VENO SPDES: ORDERED: Blood Cult Procedure Result Verified Site Aerobic Culture Bottle Final 10/25/13- 1213 ML No Growth Day 5 Anaerobic Culture Bottle Final 10/25/13- 1213 ML No Growth Day 5 END OF REPORT * ML=Testing performed at Main Lab DEPARTMENT OF PATHOLOGY, [address] [place], [place] [address] Navneet Drake M.D. Director [facility] Permit #[id number] Please note the change in the [...] in the low risk population was 99.90% (6052/6041) with a 95% confidence interval of 99.78 to 99.96%. 68 RUN DATE: 10/25/13 [facility] LAB LIVE PAGE 1 RUN TIME: 1206 [address] [place], [place] [address] Specimen Inquiry Name: SELENA DIANE : [address]: Nathen Green Acct: [id number] Unit: [id number] AGE: 33 Location: ED Re10/20/13 SEX: F Status: DEP ER SPEC: [id number] TERRENCE: 10/20/13-[address]: Yvette CHOWDHURY REQ: [id number] RECD: 10/20/13 STATUS: ANDERSON AMEZQUITA DR: [facility] Madhavi Mayorga MD PC Lucy Butcher MD _ SOURCE: BLOOD,VENO SPDESC: ORDERED: Blood Cult Procedure Result Verified Site Aerobic Culture Bottle Final 10/25/13- 1206 ML No Growth Day 5 Anaerobic Culture Bottle Final 10/25/13- 1206 ML No Growth Day 5 END OF REPORT * ML=Testing performed at Main Lab DEPARTMENT OF PATHOLOGY, [address] [place] [address] Navneet Drake M.D. Director [facility] Permit #[id number] 69 -- REFERENCE VALUE -- 12.0 - 46.0 Test Performed by: [place] [address] Lead Care Manager: Stevo Cuba III, M.D. 70 Because ethnic [...] -- 12.0 - 46.0 Test Performed by: [place] [address] Lead Care Manager: Stevo Cuba III, M.D. 74 -- REFERENCE VALUE -- 12.0 - 46.0 Test Performed by: [place] [address] Lead Care Manager: Stveo Cuba III, M.D. 75 Test Performed by: [place] [address] Lead Care Manager: Stevo Cuba III, M.D. 76 @07/15/13 1121: Cell Morphology added. RFLXG=RBC MORPH. 77 -- REFERENCE VALUE -- 12.0 - 46.0 Test Performed by: [place] [address] Lead Care Manager: Stevo Cuba III, M.D. Procedures Date CPT Code Description Status 03/05/2018 54992 Neurostimulator Pulse Generator Analysis Simple Completed W/Reprogramming 10/31/2017 15310 Neurostimulator Pulse Generator Analysis Simple Completed W/Reprogramming 10/08/2017 18839 Neurostimulator Pulse Generator Analysis Simple Completed W/Reprogramming 09/18/2017 91202 Neurostimulator Pulse Generator Analysis Simple Completed W/Reprogramming 09/04/2017 09218 Neurostimulator Pulse Generator Analysis Simple Completed W/Reprogramming 08/21/2017 44398 Neurostimulator Pulse Generator Cranial Nerve First Completed Hour 07/31/2017 01871 EEG Monitoring Computer Completed 04/11/2017 99290 EEG Monitoring & Video Recording Completed 04/10/2017 87492 EEG Monitoring & Video Recording Completed 04/09/2017 17800 EEG Monitoring & Video Recording Completed 04/08/2017 62481 EEG Monitoring & Video Recording Completed 04/07/2017 90893 EEG Monitoring & Video Recording Completed 04/06/2017 16021 EEG Monitoring & Video Recording Completed 02/06/2017 82731 EEG Monitoring Computer Completed 11/08/2016 99747 ECHO Transthorasic Realtime 2D W Doppler & Color Completed Flow Hosp Encounters Type Date Location Provider CPT E/M Dx Office Visit 03/05/2018 [facility] [address] G40.219 3:00p Z87.74 F41.9 Office Visit 12/04/2017 2:30p [facility] [place] [address] G40.219 Z87.74 F41.9 R63.4 Office Visit 10/31/2017 9:30a [facility] [address] G40.219 Z87.74 F41.9 Office Visit 10/08/2017 8:30a [facility] [place] [address] G40.219 Z87.74 F41.9 Office Visit 09/18/2017 1:30p [facility] [place] [address] G40.219 G43.109 Z87.74 F41.9 Office Visit 09/04/2017 8:30a [facility] [place] [address] H53.34 G40.219 Office Visit 08/21/2017 8:30a [facility] [place] [address] G40.219 R11.0 Z87.74 F41.9 Office Visit 07/24/2017 11:00a [facility] [address] G40.219 Z87.74 F41.9 Z79.899 Office Visit 06/25/2017 9:00a [facility] [address] G40.219 Z87.74 Z79.899 F41.9 Office Visit 05/21/2017 2:00p [facility] [place] [address] G40.219 [facility] Z87.74 Z79.899 F41.9 Office Visit 05/01/2017 12:00p [facility] [place] [address] G40.219 [facility] Z87.74 Z79.899 F41.9 Office Visit 04/12/2017 11:16a [facility] [place] [address] G40.219 Office Visit 04/11/2017 11:16a [facility] [place] [address] G40.219 Office Visit 04/10/2017 11:15a [facility] [place] [address] G40.219 Office Visit 04/09/2017 11:15a [facility] [place] [address] G40.219 Office Visit 04/08/2017 11:14a [facility] [place] [address] G40.219 Office Visit 04/07/2017 11:14a [facility] [place] [address] G40.219 Office Visit 04/06/2017 11:11a [facility] [place] [address] G40.219 Z87.74 Office Visit 03/28/2017 12:45p [facility] [place] [address] G40.219 [facility] [facility] F41.9 Office Visit 02/27/2017 10:30[place] [address] G40.219 [facility] F41.9 Z87.74 Office Visit 01/22/2017 4:00p [facility] [place] [address] G40.219 [facility] F41.9 Z87.74 Office Visit 10/31/2016 3:45p [facility] Ezequiel Henderson 20089 G40.219 [facility] Chele Office Visit 10/25/2016 9:30a [facility] 98984 R56.9 Assoc, Hospitalists LUCIANA Chairez Q27.30 Office Visit 10/24/2016 1:12p [facility] Ezequiel Malik 17354 G40.219 Chele Henderson Office Visit 10/23/2016 1:08p [facility] Ezequiel Malik 42809 G40.219 Chele Henderson Office Visit 10/23/2016 9:29a [facility], [place], [address] Q27.30 Hospitalists N.P. G40.909 Office Visit 08/04/2016 10:30a [facility] [place] [address] G40.219 [facility] [facility] Z79.899 R51 Office Visit 04/10/2016 2:30p [facility] [place] [address] G40.219 [facility] Z79.899 Office Visit 01/10/2016 10:30a [facility] [place] [address] G40.219 [facility] Z79.899 Office Visit 11/01/2015 11:30a [facility] Elier Butcher M.D. 54257 G40.211 [facility] Office Visit 11/25/2014 11:15a [facility] Lucy Butcher M.D. 38048 345.41 [facility] V22.2 784.0 Office Visit 04/02/2014 3:45p [facility] Lucy Butcher M.D. 40996 345.41 [facility] 784.0 Office Visit 12/15/2013 1:45p [facility] Elier Butcher M.D. 09947 345.11 [facility] V15.29 Office Visit 10/13/2013 11:15a [facility] Lucy Butcher M.D. 21684 345.91 [facility] Office Visit 08/01/2013 2:00p [facility] Elier Butcher M.D. 70039 345.91 [facility] Office Visit 04/23/2013 2:00p [facility] Elier Butcher M.D. 76865 345.90 [facility] Office Visit 12/25/2012 2:15p [facility] Elier Butcher M.D. 81277 345.41 [facility] [facility] V22.2 Office Visit 08/21/2012 4:00p [facility] Lucy Butcher M.D. 14228 345.91 Services Of [facility] Plan of Care Future Appointment(s):08/09/2018 11:30 am - Lucy Butcher M.D. at [facility] Of [facility]04/29/2018 - Leatha Coles MDG40.219 Local-rel symptc epi w cmplx part seiz, ntrct, w/o stat epiFollow up:: [address] Butcher [place] around SeptemberRecommendations:continue Aptiom 1.5 tabs daily Decrease Trileptal to 1 tab at night for 1 week, then stop it. 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
[2018-05-03] MEDS ORDERED: Ondansetron SYRINGE* 4 MG/2 ML SYRINGE (from 40mg/20ml vial) IV ONE (20:00)
[2018-05-03 20:01] LABS: EGFR Non-African American 115.3 (>60)
[2018-05-04 02:16] VITALS: BP 101/64
--- NOTE | 2018-05-21 10:33 | ED ---
Ayad Bolton Natalie, scribed for Danis De Oliveira MD on 05/03/18 at 1939 . Neurological HPI - HPI Summary HPI Summary: The patient is a 37 y/o F presenting to the ED BIBA c/o seizure auras starting last night. 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 She has since been having intermittent episodes of auras. Her currrent symptoms, which normally occur during her seizures, include weakness and numbness in her LUE, a burning sensation noted as "lava running through her veins," a metallic taste and smell, change in voice, palpitating feeling in left ear, and nausea. She reports that she has had these symptoms before without a seizure actually occurring so she becomes more aware and cautious, although she knows when a seizure will occur because her head always turns to the left side during an episode. The pt has a vagus nervous stimulator (VNS) placed on the left side which can be activated through a magnet that allow her symptoms to be relieved occasionally. The VNS will send pulses by itself every few minutes, but sometimes sends extra pulses by itself. She states that the device will not work exactly as planned until August 14, 2018, by Dr. Coles. She has previously taken Lorazapam to treat her symptoms, and currently takes Briviact. She has a surgical hx of two brain surgeries on the right side and an AV malformation. - History of Current Complaint Stated Complaint: SEIZURE Time Seen by Provider: 05/03/18 19:03 Hx Obtained From: Patient Hx Last Menstrual Period: non Onset/Duration: Sudden Onset, Started hours ago, Still Present Timing: Sudden Onset Onset Severity: Moderate Current Severity: Moderate Seizure Severity: Self Limited Number of Seizures: 2 - pt states she had one seizure at 02:00 today and one an hour CAMPUS COORDINATOR with auras throughout the day intermittently Neurological Deficit Location: LUE Pain Scale Used: 0-10 Numeric Character: Weak, Numbness/Tingling - in LUE, Motor Weakness - in LUE, Other: - metallic taste in mouth, change in speech, palpitating feeling in left ear, burning sensation throughout the body Aggravating: Nothing Alleviating: Nothing Associated Signs and Symptoms: Positive: Weakness, Pain - burning sensation throughout body, Numbness - in LUE, Nausea/Vomiting - Additional Pertinent History Primary Care Physician: [id number] - Allergy/Home Medications Allergies/Adverse Reactions: Allergies Allergy/AdvReac Type Severity Reaction Status Date / Time bee venom protein (honey bee) Allergy Hives Verified 01/28/18 18:07 cephalexin [From Keflex] Allergy Hives Verified 01/28/18 18:07 morphine Allergy Hives Verified 01/28/18 18:07 mushroom Allergy Hives Verified 01/28/18 18:07 Sulfa (Sulfonamide Allergy Rash Verified 01/28/18 18:07 Antibiotics) enviromental Allergy Eyes Uncoded 01/28/18 18:07 Itchy/Swollen/Red/Watery PMH/Surg Hx/FS Hx/Imm Hx Endocrine/Hematology History: Reports: Hx Thyroid Disease, Hx Anemia - IV iron tx Denies: Hx Anticoagulant Therapy, Hx Diabetes Cardiovascular History: Denies: Hx Congestive Heart Failure, Hx Hypertension, Hx Pacemaker/ICD Comment Only: Other Cardiovascular Problems/Disorders - Arteriovenous malformation - Sx repair in 2008. Right atrial enlargement. 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 RT TEMPORAL LOBE IN 2008 [place] (removed scar tissue). 5 CSECTIONS. VNM simulater.07/2017 Hx Anesthesia Reactions: No - Immunization History Date of Tetanus Vaccine: None Date of Influenza Vaccine: None Infectious Disease History: Denies: Hx Hepatitis, Hx Human Immunodeficiency Virus (HIV) - Family History Known Family History: Positive: Cardiac Disease, Hypertension, Other - cancer Negative: Diabetes - Social History Alcohol Use: None Hx Substance Use: No Substance Use Type: Reports: None, Prescribed Substance Use Comment - Amount & Last Used: Ativan Hx Tobacco Use: Yes Smoking Status (MU): Former Smoker Have You Smoked in the Last Year: Yes - had of close relative on 2016 so smoked to cope Review of Systems ENT: Other - metallic taste and smell Positive: Nausea Neurological: Other - change in speech, burning sensation throughout body, palpitating feeling in left ear Positive: Weakness - in LUE, Numbness - in LUE All Other Systems Reviewed And Are Negative: Yes Physical Exam - Summary Physical Exam Summary: Appearance: Well-appearing, no distress, Well-nourished Skin: Warm, color reflects adequate perfusion Head: Normal Head/Face inspection Eyes: Conjunctiva clear ENT: Normal inspection Neck: Supple, no nodes, no JVD. Respiratory: Lungs clear, Normal breath sounds, no respiratory distress Cardio: RRR, No murmur, pulses normal, brisk capillary refill Abdomen: soft, nontender, no guarding, no rebound Bowel sounds: present Musculoskeletal: Strength Intact/ ROM intact in all extremities except LUE has chronic weakness. No calf tenderness. No edema. Neuro: Alert, muscle tone normal, facial symmetry, speech normal, sensory/motor intact in all extremities except LUE has chronic weakness Psychological: Normal Triage Information Reviewed: Yes Vital Signs On Initial Exam: Initial Vitals Pulse BP Pulse Ox 103 117/66 100 05/03/18 18:56 05/03/18 18:56 05/03/18 18:56 Vital Signs Reviewed: Yes Diagnostics - Vital Signs Vital Signs Temp Pulse Resp BP Pulse Ox 05/03/18 20:10 20 05/03/18 19:26 85 118/88 99 05/03/18 19:00 36.5 C 89 20 117/69 96 05/03/18 18:58 106 90 05/03/18 18:56 103 117/66 100 - Laboratory Lab Results: Lab Results 05/03/18 05/03/18 Range/Units 19:36 19:36 WBC 6.7 (3.5-10.8) 10^3/ul RBC 4.47 (4.00-5.40) 10^6/ul Hgb 13.5 (12.0-16.0) g/dl Hct 40 (35-47) % MCV 89 (80-97) fL MCH 30 (27-31) pg MCHC 34 (31-36) g/dl RDW 13 (10.5-15) % Plt Count 294 (150-450) 10^3/ul MPV 6.8 L (7.4-10.4) um3 Neut % (Auto) 46.5 (38-83) % Lymph % (Auto) 39.4 (25-47) % Addison % (Auto) 8.9 H (0-7) % Eos % (Auto) 4.5 (0-6) % Baso % (Auto) 0.7 (0-2) % Absolute Neuts (auto) 3.1 (1.5-7.7) 10^3/ul Absolute Lymphs (auto) 2.6 (1.0-4.8) 10^3/ul Absolute Monos (auto) 0.6 (0-0.8) 10^3/ul Absolute Eos (auto) 0.3 (0-0.6) 10^3/ul Absolute Basos (auto) 0 (0-0.2) 10^3/ul Absolute Nucleated RBC 0 10^3/ul Nucleated RBC % 0.1 Sodium 137 (135-145) mmol/L Potassium 3.9 (3.5-5.0) mmol/L Chloride 104 (101-111) mmol/L Carbon Dioxide 24 (22-32) mmol/L Anion Gap 9 (2-11) mmol/L BUN 8 (6-24) mg/dL Creatinine 0.59 (0.51-0.95) mg/dL Est GFR ( Amer) 148.3 (>60) Est GFR (Non-Af Amer) 115.3 (>60) BUN/Creatinine Ratio 13.6 (8-20) Glucose 96 (70-100) mg/dL Calcium 9.6 (8.6-10.3) mg/dL Total Bilirubin 0.30 (0.2-1.0) mg/dL AST 22 (13-39) U/L ALT 14 (7-52) U/L Alkaline Phosphatase 50 (34-104) U/L Total Protein 6.5 (6.4-8.9) g/dL Albumin 4.5 (3.2-5.2) g/dL Globulin 2.0 (2-4) g/dL Albumin/Globulin Ratio 2.3 (1-3) Result Diagrams: 05/03/18 19:36 05/03/18 19:36 Lab Statement: Any lab studies that have been ordered have been reviewed, and results considered in the medical decision making process. Re-Evaluation - Re-Evaluation First Eval Re-Evaluation Time: 20:50 Change: Improved - pt resting comfortably in bed. pt aura improved. pt with no seizure activity in the ED. will continue to monitor. Second Eval Re-Evaluation Time: 22:30 Change: Improved Comment: pt continues to rest comfortably in bed. Pt with no seizure activity. will continue to monitor. Third Eval Re-Evaluation Time: 01:52 Change: Improved - Pt with no seizure activity in the ED. pt resting comfortably in bed. Plan for out patient Neurology f/u. Course/Dx - Differential Dx Differential Diagnoses Neuro: Positive: Encephalitis, Seizure Disorder, Transient Ischemic Attack, Vasovagal Reaction, Viral Syndrome - Diagnoses Provider Diagnoses: Epilepsy Discharge - Sign-Out/Discharge Documenting (check all that apply): Discharge/Admit/Transfer - Discharge Plan Condition: Improved Disposition: HOME Patient Education Materials: Epilepsy (ED) Referrals: Madhavi Mayorga MD [Primary Care Provider] - 2 Days - Billing Disposition and Condition Condition: IMPROVED Disposition: Home The documentation as recorded by the Ayad weller Natalie accurately reflects the service I personally performed and the decisions made by , Danis De Oliveira MD.
== END 2018-05-04 02:15 | disposition home or self-care (01) ==
LOC: ED 18:42
DX: G40.909 Epilepsy, unspecified, not intractable, without status epilepticus (principal); Z87.74 Personal history of (corrected) congenital malformations of heart and circulatory system; Z86.2 Personal history of diseases of the blood and blood-forming organs and certain disorders involving the immune mechanism; Z87.891 Personal history of nicotine dependence; Z88.5 Allergy status to narcotic agent; Z88.2 Allergy status to sulfonamides; Z88.3 Allergy status to other anti-infective agents
CPT/HCPCS: 36415; 80053; 85025; 96374; 96375; 99284; J2060; J2405

== ENCOUNTER 2018-05-07 05:48 | Emergency (ER) | payer OTHER ==
[2018-05-07] MEDS ORDERED: NS 0.9% 1000 ML* 1,000 ML IV ONE (05:51)
[2018-05-07] MEDS ORDERED: Ondansetron ODT TAB* 4 MG PO ONE (05:54)
--- NOTE | 2018-05-07 06:04 | ED ---
GI/ HPI - HPI Summary HPI Summary: Pt. is a 37y.o female who presents to the ER for dizziness, nausea and vomiting that started this morning. Pt. notes she has a history or vertigo, but dizziness is different today as the room is spinning in a different direction than usual. Pt. denies recent URI, abdominal pain, fever, urinary symptoms, diarrhea. No current modifying factors. Past medical hx of vertigo, seizures, AVM. Symptoms are moderate in severity. Pt. also notes that she tripped over a baby gait a few days ago and injuries right foot but she states she is not having any pain to right foot today. - History of Current Complaint Time Seen by Provider: 05/07/18 05:49 Stated Complaint: VOMITING Hx Obtained From: Patient Hx Last Menstrual Period: non - Additional Pertinent History Primary Care Physician: CORAL - Allergy/Home Medications Allergies/Adverse Reactions: Allergies Allergy/AdvReac Type Severity Reaction Status Date / Time bee venom protein (honey bee) Allergy Hives Verified 05/07/18 06:01 cephalexin [From Keflex] Allergy Hives Verified 05/07/18 06:01 morphine Allergy Hives Verified 05/07/18 06:01 mushroom Allergy Hives Verified 05/07/18 06:01 Sulfa (Sulfonamide Allergy Rash Verified 05/07/18 06:01 Antibiotics) enviromental Allergy Eyes Uncoded 05/07/18 06:01 Itchy/Swollen/Red/Watery PMH/Surg Hx/FS Hx/Imm Hx Previously Healthy: Yes Endocrine/Hematology History: Reports: Hx Thyroid Disease, Hx Anemia - IV iron tx Denies: Hx Anticoagulant Therapy, Hx Diabetes Cardiovascular History: Denies: Hx Congestive Heart Failure, Hx Hypertension, Hx Pacemaker/ICD Comment Only: Other Cardiovascular Problems/Disorders - Arteriovenous malformation - Sx repair in 2008. Right atrial enlargement. 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 RT TEMPORAL LOBE IN 2008 [place] (removed scar tissue). 5 CSECTIONS. VNM simulater.07/2017 Hx Anesthesia Reactions: No - Immunization History Date of Tetanus Vaccine: None Date of Influenza Vaccine: None Infectious Disease History: Denies: Hx Hepatitis, Hx Human Immunodeficiency Virus (HIV) - Family History Known Family History: Positive: Cardiac Disease, Hypertension, Other - cancer Negative: Diabetes - Social History Occupation: Unemployed Lives: With Family Alcohol Use: None Hx Substance Use: No Substance Use Type: Reports: None Substance Use Comment - Amount & Last Used: Ativan Hx Tobacco Use: Yes Smoking Status (MU): Former Smoker Have You Smoked in the Last Year: Yes - had of close relative on 2016 so smoked to cope Review of Systems Constitutional: Negative Negative: Fever, Chills Eyes: Negative ENT: Negative Cardiovascular: Negative Respiratory: Negative Positive: Vomiting, Nausea. Negative: Abdominal Pain, Diarrhea Genitourinary: Negative Negative: burning, dysuria, frequency, flank pain Neurological: Negative All Other Systems Reviewed And Are Negative: Yes Physical Exam Triage Information Reviewed: Yes Vital Signs Reviewed: Yes Appearance: Positive: Thin - Pt. lying in bed, holding emesis bag. Appears uncomfortable but nontoxic. Skin: Positive: Warm, Dry Head/Face: Positive: Normal Head/Face Inspection Eyes: Positive: Normal Neck: Positive: Supple Respiratory/Lung Sounds: Positive: Clear to Auscultation, Breath Sounds Present Cardiovascular: Positive: Normal, RRR Abdomen Description: Positive: Nontender, Soft. Negative: Peritoneal Signs Musculoskeletal: Positive: Other - Right foot without palpable pain, edema, wounds, or ecchymosis. Neurological: Positive: Normal, CN Intact II-III Psychiatric: Positive: Affect/Mood Appropriate Diagnostics - Laboratory Result Diagrams: 05/07/18 06:12 05/07/18 06:12 Lab Statement: Any lab studies that have been ordered have been reviewed, and results considered in the medical decision making process. GIGU Course/Dx - Course Course Of Treatment: Pt. presenting with vertiog, N/V. She is afebrile. Mildly tachycardic. Will start on IV fluids, give zofran and meclizine and obtain basic labs. Labs are unremarkable other than K of 3.0. Will give PO 40meq. Pt. re-examined around 0820. She is resting comfortably. She states dizziness is improving but she still has nausea. She was given a dose of phenergan which did improve nausea. She was able to drink in ER without difficulty. Pt. will f.u with PCP. To return to ER if sxs change or worsen. - Diagnoses Differential Diagnoses - Female: Dehydration, Gerd, Urinary Tract Infection, Vomiting Provider Diagnoses: Vertigo Discharge - Sign-Out/Discharge Documenting (check all that apply): Discharge/Admit/Transfer - Discharge Plan Condition: Good Disposition: HOME Patient Education Materials: Vertigo (ED) Referrals: Madhavi Mayorga MD [Primary Care Provider] - Additional Instructions: Call your PCP today for a follow up appointment Continue home medications as directed Increase fluids Return to ER if symptoms change or worsen - Billing Disposition and Condition Condition: GOOD Disposition: Home
[2018-05-07] MEDS ORDERED: Meclizine TAB* 12.5 MG PO ONE (06:06)
[2018-05-07 06:25] LABS: ABS Basophils 0 10^3/ul (0-0.2); ABS Eosinophils 0.3 10^3/ul (0-0.6); ABS Lymphocytes 3.2 10^3/ul (1.0-4.8); ABS Monocytes 0.6 10^3/ul (0-0.8); ABS Neutrophils 3.1 10^3/ul (1.5-7.7); ABS Nucleated RBC 0 10^3/ul; Eosinophil % 3.6 % (0-6); Hematocrit 36 % (35-47); Hemoglobin 12.5 g/dl (12.0-16.0); Lymphocyte % 44.7 % (25-47); Mean Corpuscular HGB Conc 34 g/dl (31-36); Mean Corpuscular Hemoglobin 31 pg (27-31); Mean Corpuscular Volume 89 fL (80-97); Mean Platelet Volume 6.7 um3 (7.4-10.4); Nucleated Red Blood Cells % 0.1; Platelet Count 283 10^3/ul (150-450); Red Blood Count 4.07 10^6/ul (4.00-5.40); Red Cell Distribution Width 13 % (10.5-15); White Blood Count 7.2 10^3/ul (3.5-10.8)
[2018-05-07 06:44] LABS: EGFR Non-African American 125.1 (>60)
[2018-05-07] MEDS ORDERED: Potassium Chlor TAB* 20 MEQ TAB.ER PO ONE (06:57)
[2018-05-07 08:07] LABS: Urine Appearance Cloudy; Urine Blood Negative (Negative); Urine Color Yellow; Urine Ketones Negative (Negative); Urine Protein Negative (Negative); Urine Specific Gravity 1.016 (1.010-1.030); Urine Urobilinogen Negative (Negative)
[2018-05-07] MEDS ORDERED: Promethazine TAB* 25 MG PO ONE (08:21)
[2018-05-07 09:08] VITALS: BP 105/74
== END 2018-05-07 09:05 | disposition home or self-care (01) ==
LOC: ED 05:48
DX: R42 Dizziness and giddiness (principal); R11.2 Nausea with vomiting, unspecified; E07.9 Disorder of thyroid, unspecified; D64.9 Anemia, unspecified; Q28.2 Arteriovenous malformation of cerebral vessels; R56.9 Unspecified convulsions; F32.9 Major depressive disorder, single episode, unspecified; Z88.5 Allergy status to narcotic agent; Z88.2 Allergy status to sulfonamides; Z88.1 Allergy status to other antibiotic agents; Z91.030 Bee allergy status; Z87.891 Personal history of nicotine dependence; Z82.49 Family history of ischemic heart disease and other diseases of the circulatory system; Z80.9 Family history of malignant neoplasm, unspecified
CPT/HCPCS: 36415; 80053; 81003; 83690; 84702; 85025; 96360; 96361; 99283; A9270-GY

== ENCOUNTER 2018-06-06 00:32 | Emergency (ER) | payer OTHER ==
[2018-06-06 01:50] LABS: ABS Basophils 0 10^3/ul (0-0.2); ABS Eosinophils 0.3 10^3/ul (0-0.6); ABS Lymphocytes 1.8 10^3/ul (1.0-4.8); ABS Monocytes 0.8 10^3/ul (0-0.8); ABS Neutrophils 5.2 10^3/ul (1.5-7.7); ABS Nucleated RBC 0 10^3/ul; Eosinophil % 3.8 % (0-6); Hematocrit 37 % (35-47); Hemoglobin 12.6 g/dl (12.0-16.0); Lymphocyte % 22.3 % (25-47); Mean Corpuscular HGB Conc 34 g/dl (31-36); Mean Corpuscular Hemoglobin 30 pg (27-31); Mean Corpuscular Volume 89 fL (80-97); Mean Platelet Volume 6.7 um3 (7.4-10.4); Nucleated Red Blood Cells % 0; Platelet Count 256 10^3/ul (150-450); Red Blood Count 4.19 10^6/ul (4.00-5.40); Red Cell Distribution Width 13 % (10.5-15); White Blood Count 8.2 10^3/ul (3.5-10.8)
[2018-06-06 01:54] LABS: INR 0.87 (0.77-1.02)
[2018-06-06 02:05] LABS: EGFR Non-African American 133.4 (>60)
[2018-06-06] MEDS ORDERED: Ondansetron INJ* 2 MG/ML VIAL IV ONE (03:35)
[2018-06-06] MEDS ORDERED: LORazepam INJ* 2 MG/ML 1 ML VIAL IV PUSH ONE (03:35)
[2018-06-06] MEDS ORDERED: NS 0.9% 1000 ML* 2,000 ML IV SCH (04:15)
--- NOTE | 2018-06-06 04:42 | ED ---
Neurological HPI - HPI Summary HPI Summary: A 37 y/o female JANET present to the ED c/o seizure activity. As per triage, " the patient arrived ALS by Sharlene james following a seizure. Pt has a hx of sz and had x2 Sz tonight despite using her magnet". According to the patient, she needed help using her magnet. Her mother was not comfortable using her magnet which led to the patient having a seizure. After the seizure, the patient thought she was fine, however her mother insisted on coming to ED. It was noted that the patient had a full-blown, full-tonic seizure. The patients head turns left during seizure. Pt denies any weakness. PCP is Dr. Coles. - History of Current Complaint Chief Complaint: EDSeizure Stated Complaint: SEIZURE Time Seen by Provider: 06/06/18 01:37 Hx Obtained From: Patient Hx Last Menstrual Period: non Onset/Duration: Sudden Onset Timing: Intermittent Episodes Lasting: Pain Intensity: 10 Pain Scale Used: 0-10 Numeric Aggravating: Nothing Alleviating: Nothing Associated Signs and Symptoms: Positive: Seizure, Nothing - NEGATIVE: Weakness - Additional Pertinent History Primary Care Physician: [id number] - Allergy/Home Medications Allergies/Adverse Reactions: Allergies Allergy/AdvReac Type Severity Reaction Status Date / Time bee venom protein (honey bee) Allergy Hives Verified 05/07/18 06:01 cephalexin [From Keflex] Allergy Hives Verified 05/07/18 06:01 morphine Allergy Hives Verified 05/07/18 06:01 mushroom Allergy Hives Verified 05/07/18 06:01 Sulfa (Sulfonamide Allergy Rash Verified 05/07/18 06:01 Antibiotics) enviromental Allergy Eyes Uncoded 05/07/18 06:01 Itchy/Swollen/Red/Watery PMH/Surg Hx/FS Hx/Imm Hx Endocrine/Hematology History: Reports: Hx Thyroid Disease, Hx Anemia - IV iron tx Denies: Hx Anticoagulant Therapy, Hx Diabetes Cardiovascular History: Denies: Hx Congestive Heart Failure, Hx Hypertension, Hx Pacemaker/ICD Comment Only: Other Cardiovascular Problems/Disorders - Arteriovenous malformation - Sx repair in 2008. Right atrial enlargement. 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 RT TEMPORAL LOBE IN 2008 [place] (removed scar tissue). 5 CSECTIONS. VNM simulater.07/2017 Hx Anesthesia Reactions: No - Immunization History Date of Tetanus Vaccine: None Date of Influenza Vaccine: None Infectious Disease History: No Infectious Disease History: Denies: Hx Hepatitis, Hx Human Immunodeficiency Virus (HIV), Traveled Outside the [place] in Last 30 Days - Family History Known Family History: Positive: Cardiac Disease, Hypertension, Other - cancer Negative: Diabetes - Social History Alcohol Use: None Hx Substance Use: No Substance Use Type: Reports: None Substance Use Comment - Amount & Last Used: Ativan Hx Tobacco Use: Yes Smoking Status (MU): Former Smoker Have You Smoked in the Last Year: Yes - had of close relative on 2016 so smoked to cope Review of Systems Negative: Fever Neurological: Other - POSITIVE: Seizure Negative: Weakness All Other Systems Reviewed And Are Negative: Yes Physical Exam - Summary Physical Exam Summary: Appearance: Well-appearing, moderate pain distress, well-nourished Skin:Warm, color reflects adequate perfusion, dry Head:Normal Head/Face inspection, atraumatic Eyes: Conjunctiva clear ENT:Normal inspection Neck:Supple, no nodes, no JVD Respiratory: Lungs clear, normal breath sounds, no respiratory distress Cardio: RRR, No murmur, pulses normal, brisk capillary refill Abdomen: Soft, nontender Bowel sounds: Present Musculoskeletal: Strength Intact/ROM intact, no calf tenderness, no edema. Psychological: Normal Neuro: Alert, muscle tone normal, no focal deficit Triage Information Reviewed: Yes Vital Signs On Initial Exam: Initial Vitals Temp Pulse Resp BP Pulse Ox 98 F 116 24 92/60 100 06/06/18 00:39 06/06/18 00:39 06/06/18 00:39 06/06/18 00:39 06/06/18 00:39 Vital Signs Reviewed: Yes Diagnostics - Vital Signs Vital Signs Temp Pulse Resp BP Pulse Ox 06/06/18 03:43 110/95 06/06/18 03:41 109 146/99 92 06/06/18 03:36 20 06/06/18 03:00 79 16 97 06/06/18 02:11 86 20 104/79 98 06/06/18 02:00 78 24 97 06/06/18 01:41 79 20 106/74 96 06/06/18 01:11 94 17 112/97 98 06/06/18 01:00 91 23 98 06/06/18 00:42 96 21 92/60 100 06/06/18 00:41 105 29 100 06/06/18 00:39 98 F 116 24 92/60 100 - Laboratory Lab Results: Lab Results 06/06/18 06/06/18 06/06/18 Range/Units 01:38 01:38 01:38 WBC 8.2 (3.5-10.8) 10^3/ul RBC 4.19 (4.00-5.40) 10^6/ul Hgb 12.6 (12.0-16.0) g/dl Hct 37 (35-47) % MCV 89 (80-97) fL MCH 30 (27-31) pg MCHC 34 (31-36) g/dl RDW 13 (10.5-15) % Plt Count 256 (150-450) 10^3/ul MPV 6.7 L (7.4-10.4) um3 Neut % (Auto) 63.7 (38-83) % Lymph % (Auto) 22.3 L (25-47) % Hutchinson % (Auto) 9.9 H (0-7) % Eos % (Auto) 3.8 (0-6) % Baso % (Auto) 0.3 (0-2) % Absolute Neuts (auto) 5.2 (1.5-7.7) 10^3/ul Absolute Lymphs (auto) 1.8 (1.0-4.8) 10^3/ul Absolute Monos (auto) 0.8 (0-0.8) 10^3/ul Absolute Eos (auto) 0.3 (0-0.6) 10^3/ul Absolute Basos (auto) 0 (0-0.2) 10^3/ul Absolute Nucleated RBC 0 10^3/ul Nucleated RBC % 0 INR (Anticoag Therapy) 0.87 (0.77-1.02) Sodium 137 (135-145) mmol/L Potassium 3.5 (3.5-5.0) mmol/L Chloride 103 (101-111) mmol/L Carbon Dioxide 27 (22-32) mmol/L Anion Gap 7 (2-11) mmol/L BUN 12 (6-24) mg/dL Creatinine 0.52 (0.51-0.95) mg/dL Est GFR ( Amer) 161.4 (>60) Est GFR (Non-Af Amer) 133.4 (>60) BUN/Creatinine Ratio 23.1 H (8-20) Glucose 104 H (70-100) mg/dL Lactic Acid (0.5-2.0) mmol/L Calcium 9.2 (8.6-10.3) mg/dL Magnesium 2.0 (1.9-2.7) mg/dL Total Bilirubin 0.20 (0.2-1.0) mg/dL AST 19 (13-39) U/L ALT 12 (7-52) U/L Alkaline Phosphatase 41 (34-104) U/L Total Protein 6.1 L (6.4-8.9) g/dL Albumin 4.2 (3.2-5.2) g/dL Globulin 1.9 L (2-4) g/dL Albumin/Globulin Ratio 2.2 (1-3) 06/06/18 Range/Units 01:38 WBC (3.5-10.8) 10^3/ul RBC (4.00-5.40) 10^6/ul Hgb (12.0-16.0) g/dl Hct (35-47) % MCV (80-97) fL MCH (27-31) pg MCHC (31-36) g/dl RDW (10.5-15) % Plt Count (150-450) 10^3/ul MPV (7.4-10.4) um3 Neut % (Auto) (38-83) % Lymph % (Auto) (25-47) % Hutchinson % (Auto) (0-7) % Eos % (Auto) (0-6) % Baso % (Auto) (0-2) % Absolute Neuts (auto) (1.5-7.7) 10^3/ul Absolute Lymphs (auto) (1.0-4.8) 10^3/ul Absolute Monos (auto) (0-0.8) 10^3/ul Absolute Eos (auto) (0-0.6) 10^3/ul Absolute Basos (auto) (0-0.2) 10^3/ul Absolute Nucleated RBC 10^3/ul Nucleated RBC % INR (Anticoag Therapy) (0.77-1.02) Sodium (135-145) mmol/L Potassium (3.5-5.0) mmol/L Chloride (101-111) mmol/L Carbon Dioxide (22-32) mmol/L Anion Gap (2-11) mmol/L BUN (6-24) mg/dL Creatinine (0.51-0.95) mg/dL Est GFR ( Amer) (>60) Est GFR (Non-Af Amer) (>60) BUN/Creatinine Ratio (8-20) Glucose (70-100) mg/dL Lactic Acid 0.9 (0.5-2.0) mmol/L Calcium (8.6-10.3) mg/dL Magnesium (1.9-2.7) mg/dL Total Bilirubin (0.2-1.0) mg/dL AST (13-39) U/L ALT (7-52) U/L Alkaline Phosphatase (34-104) U/L Total Protein (6.4-8.9) g/dL Albumin (3.2-5.2) g/dL Globulin (2-4) g/dL Albumin/Globulin Ratio (1-3) Result Diagrams: 06/06/18 01:38 06/06/18 01:38 Lab Statement: Any lab studies that have been ordered have been reviewed, and results considered in the medical decision making process. - EKG 0134 Cardiac Rate: NL - 81 BPM EKG Rhythm: Sinus Rhythm ST Segment: Non-Specific Ectopy: None EKG Interpretation: nl ML CT, nl QTc, no acute changes EKG Comparison: No Significant Change - 04/17/2018 Re-Evaluation - Re-Evaluation First Eval Re-Evaluation Time: 03:34 Comment: Aura of seizure. Used magnet 5 times. Will give patient oxygen and put IV in. Second Eval Re-Evaluation Time: 04:35 Change: Improved Comment: Patient awake and alert. Wants to go home. Will call Dr. Coles in AM. Course/Dx - Course Course Of Treatment: A 37 y/o female present so ED for seizure activity. A EKG revealed a rate of 81 BPM, nl ML CT, nl QTc and no acute changes. In the ED course, the patient recieved Zofran and Ativan. Upon reevaluation, the patient feels much better and would like to be discharged home. Patient will call Dr. Coles in the AM. Patient will be discharged with a diagnosis of acute and chronic seizure disorder. Patient is agreeable with this plan. - Diagnoses Provider Diagnoses: Epilepsy Discharge - Sign-Out/Discharge Documenting (check all that apply): Patient Departure - DISCHARGE - Discharge Plan Condition: Stable Disposition: HOME Patient Education Materials: Epilepsy (ED) Referrals: Madhavi Mayorga MD [Primary Care Provider] - Additional Instructions: RETURN TO ED FOR ANY NEW OR WORSENING SYMPTOMS.
[2018-06-06 04:50] VITALS: BP 114/82
== END 2018-06-06 04:50 | disposition home or self-care (01) ==
LOC: ED 00:32
DX: G40.309 Generalized idiopathic epilepsy and epileptic syndromes, not intractable, without status epilepticus (principal); E07.9 Disorder of thyroid, unspecified; F32.9 Major depressive disorder, single episode, unspecified; Z88.5 Allergy status to narcotic agent; Z88.2 Allergy status to sulfonamides; Z88.1 Allergy status to other antibiotic agents; Z91.030 Bee allergy status; Z82.49 Family history of ischemic heart disease and other diseases of the circulatory system; Z80.9 Family history of malignant neoplasm, unspecified; Z87.891 Personal history of nicotine dependence
CPT/HCPCS: 36415; 80053; 83605; 83735; 85025; 85610; 93005; 96374; 96375; 99285; J2060; J2405

== ENCOUNTER 2018-06-19 00:24 | Emergency (ER) | payer OTHER ==
[2018-06-19] MEDS ORDERED: NS 0.9% 1000 ML* 1,000 ML IV SCH (00:45)
[2018-06-19] MEDS ORDERED: Ondansetron INJ* 2 MG/ML VIAL ONE (00:48)
[2018-06-19] MEDS ORDERED: Ondansetron INJ* 2 MG/ML VIAL IV ONE (00:55)
--- NOTE | 2018-06-19 01:22 | ED ---
Neurological HPI - HPI Summary HPI Summary: This is janee More documenting for attending Cam Juares MD. 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 The patient rates the pain 0/10 in severity. Patient reports she is unable to feel her left arm and LOC. The patient states she is unable to child welfare caseworker her left arm and leg. She states she had one this morning and one this afternoon that were both total clonic. She states they are becoming more frequent and the ones today were witnessed by her mother. Hx of seizure and is on medication - History of Current Complaint Chief Complaint: EDSeizure Stated Complaint: SEIZURES Time Seen by Provider: 06/19/18 00:31 Hx Obtained From: Patient Hx Last Menstrual Period: non Onset/Duration: Resolved Timing: Constant Onset Severity: Moderate Current Severity: None Seizure Severity: Moderate Neurological Deficit Location: Generalized Pain Intensity: 0 Pain Scale Used: 0-10 Numeric Syncope Context: Witnessed, Loss of Consciousness: Yes Frequency: Episodes x___ - 3 Seizure Character: Total-Clonic Alleviating: Spontanious Resolution Associated Signs and Symptoms: Positive: Loss of Consciousness - Additional Pertinent History Primary Care Physician: [id number] - Allergy/Home Medications Allergies/Adverse Reactions: Allergies Allergy/AdvReac Type Severity Reaction Status Date / Time bee venom protein (honey bee) Allergy Hives Verified 05/07/18 06:01 cephalexin [From Keflex] Allergy Hives Verified 05/07/18 06:01 morphine Allergy Hives Verified 05/07/18 06:01 mushroom Allergy Hives Verified 05/07/18 06:01 Sulfa (Sulfonamide Allergy Rash Verified 05/07/18 06:01 Antibiotics) enviromental Allergy Eyes Uncoded 05/07/18 06:01 Itchy/Swollen/Red/Watery PMH/Surg Hx/FS Hx/Imm Hx Endocrine/Hematology History: Reports: Hx Thyroid Disease, Hx Anemia - IV iron tx Denies: Hx Anticoagulant Therapy, Hx Diabetes Cardiovascular History: Denies: Hx Congestive Heart Failure, Hx Hypertension, Hx Pacemaker/ICD Comment Only: Other Cardiovascular Problems/Disorders - Arteriovenous malformation - Sx repair in 2008. Right atrial enlargement. 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 RT TEMPORAL LOBE IN 2008 [place] (removed scar tissue). 5 CSECTIONS. VNM simulater.07/2017 Hx Anesthesia Reactions: No - Immunization History Date of Tetanus Vaccine: None Date of Influenza Vaccine: None Infectious Disease History: No Infectious Disease History: Denies: Hx Hepatitis, Hx Human Immunodeficiency Virus (HIV), Traveled Outside the [place] in Last 30 Days - Family History Known Family History: Positive: Cardiac Disease, Hypertension, Other - cancer Negative: Diabetes - Social History Alcohol Use: None Hx Substance Use: No Substance Use Type: Reports: Marijuana Substance Use Comment - Amount & Last Used: Ativan Hx Tobacco Use: Yes Smoking Status (MU): Former Smoker Have You Smoked in the Last Year: Yes - had of close relative on 2016 so smoked to cope Review of Systems Positive: Other - unable to move left arm and left leg Neurological: Other - seizure Positive: Syncope All Other Systems Reviewed And Are Negative: Yes Physical Exam - Summary Physical Exam Summary: Appearance: Well appearing, no pain distress Skin: warm, dry, reflects adequate perfusion Head/face: normal Eyes: EOMI, CLAY ENT: normal Neck: supple, non-tender Respiratory: CTA, breath sounds present Cardiovascular: RRR, pulses symmetrical Abdomen: non-tender, soft Bowel: present Musculoskeletal: normal, strength/ROM intact Neuro: unable to move left arm, sensory motor intact, A&Ox3 Triage Information Reviewed: Yes Vital Signs On Initial Exam: Initial Vitals Pulse Resp BP Pulse Ox 98 19 136/93 98 06/19/18 00:28 06/19/18 00:28 06/19/18 00:28 06/19/18 00:28 Vital Signs Reviewed: Yes - Wolfgang Coma Scale Best Eye Response: 4 - Spontaneous Best Motor Response: 6 - Obeys Commands Best Verbal Response: 5 - Oriented Coma Scale Total: 15 Diagnostics - Vital Signs Vital Signs Temp Pulse Resp BP Pulse Ox 06/19/18 00:39 99 F 96 20 136/93 100 06/19/18 00:33 101 19 91 06/19/18 00:28 98 19 136/93 98 - Laboratory Result Diagrams: 06/19/18 01:55 06/19/18 01:55 Lab Statement: Any lab studies that have been ordered have been reviewed, and results considered in the medical decision making process. - CT CT Brain CT Interpretation Completed By: Radiologist - stable CT scan of the brain was noted change since prior CT study of 11-24-17. Patient has undergone resection of an arteriovascular malformation. No evidence of acute intracranial hemorrhage. No intracranial mass of obstructive hydrocephalus ED physician has reviewed this radiology report. - EKG 0053 Cardiac Rate: NL EKG Rhythm: Sinus Rhythm - at 97 BPM EKG Interpretation: no acute changes Re-Evaluation - Re-Evaluation First Eval Re-Evaluation Time: 03:14 Change: Improved Comment: Pt is feeling better now and is able to move the left side of her body. 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 The patient rates the pain 0/10 in severity. Patient reports she is unable to feel her left arm and LOC. The patient states she is unable to child welfare caseworker her left arm and leg. She states she had one this morning and one this afternoon that were both total clonic. She states they are becoming more frequent and the ones today were witnessed by her mother. Hx of seizure and is on medication. . An EKG reveals nsr. CT Head reveals, per radiologist , stable CT scan of the brain was noted change since prior CT study of 11-24-17. Patient has undergone resection of an arteriovascular malformation. No evidence of acute intracranial hemorrhage. No intracranial mass of obstructive hydrocephalus. ED physician has reviewed this radiology report. The patient is feeling better and is able to move all her extremities. She will be discharged home and will f/u with her pcp. The patient is agreeable with this plan. - Differential Dx Differential Diagnoses Neuro: Positive: Anxiety, Postical, Seizure Disorder - Diagnoses Provider Diagnoses: Seizure Discharge - Sign-Out/Discharge Documenting (check all that apply): Patient Departure - Discharge Plan Condition: Stable Disposition: HOME Patient Education Materials: Epilepsy (ED) Referrals: Madhavi Mayorga MD [Primary Care Provider] - 3 Days Additional Instructions: RETURN TO THE EMERGENCY DEPARTMENT FOR CHANGING OR WORSENING SYMPTOMS - Billing Disposition and Condition Condition: STABLE Disposition: Home
[2018-06-19 03:03] LABS: ABS Basophils 0 10^3/ul (0-0.2); ABS Eosinophils 0.3 10^3/ul (0-0.6); ABS Lymphocytes 1.6 10^3/ul (1.0-4.8); ABS Monocytes 0.7 10^3/ul (0-0.8); ABS Neutrophils 6.9 10^3/ul (1.5-7.7); ABS Nucleated RBC 0 10^3/ul; Eosinophil % 2.7 % (0-6); Hematocrit 36 % (35-47); Hemoglobin 12.5 g/dl (12.0-16.0); Lymphocyte % 16.8 % (25-47); Mean Corpuscular HGB Conc 35 g/dl (31-36); Mean Corpuscular Hemoglobin 30 pg (27-31); Mean Corpuscular Volume 88 fL (80-97); Mean Platelet Volume 7.1 um3 (7.4-10.4); Nucleated Red Blood Cells % 0.2; Platelet Count 282 10^3/ul (150-450); Red Blood Count 4.12 10^6/ul (4.00-5.40); Red Cell Distribution Width 13 % (10.5-15); White Blood Count 9.4 10^3/ul (3.5-10.8)
[2018-06-19 03:13] LABS: EGFR Non-African American 127.7 (>60)
[2018-06-19] MEDS ORDERED: Potassium Chlor TAB* 20 MEQ TAB.ER PO ONE (03:14)
[2018-06-19 03:28] VITALS: BP 121/72
--- NOTE | 2018-06-19 08:01 | RAD ---
Indication: Seizures. CT of the brain performed without IV contrast. Comparison is made with previous exam dated November 24, 2017. Ventricular structures are midline. No midline shift is noted. Patient has had right frontal parietal and temporal craniotomy on the right. Right postsurgical cavity with communication into the right lateral ventricle is noted in the right temporal lobe. This is unchanged from previous exam. No evidence of intracranial hemorrhage is noted. No intracranial mass is noted. Posterior fossa is otherwise unremarkable. No midline shift is noted. Paranasal sinuses and mastoid air cells are grossly unremarkable. IMPRESSION: Overall no changes noted since prior exam with no acute changes. Postoperative changes are noted in the right temporal lobe which is stable since previous exam. No acute hemorrhage or mass is identified.
== END 2018-06-19 03:40 | disposition home or self-care (01) ==
LOC: ED 00:24
DX: G40.909 Epilepsy, unspecified, not intractable, without status epilepticus (principal); Z87.74 Personal history of (corrected) congenital malformations of heart and circulatory system; Z79.899 Other long term (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; Z87.891 Personal history of nicotine dependence; Z88.2 Allergy status to sulfonamides; Z88.5 Allergy status to narcotic agent
CPT/HCPCS: 36415; 70450; 80053; 84702; 85025; 93005; 96361; 96374; 99283; A9270-GY; J2405

== ENCOUNTER 2018-07-04 18:48 | Emergency (ER) | payer OTHER ==
--- NOTE | 2018-07-04 19:17 | ED ---
Altered Mental Status - HPI Summary HPI Summary: This is scribe Christopher Valdovinos documenting for attending Gumaro Lee MD. This patient is a 37 year old F presenting to [facility] with a chief complaint of a seizure since 18:52. Patient had a witness of this at home. Laz from EMS states that these are pseudo-seizures. 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 Patient is currently taking Benadryl, potassium, Aptiom (800 mg twice a day), magnesium, Levothyroxine, vitamin D, Briviact (100 mg in the morning and 150 at night), vitamin C, and Tylenol. I, Dr. Lee, personally performed the services described in this documentation as scribed in my presence, and it is both accurate and complete. - History Of Current Complaint Chief Complaint: EDSeizure Stated Complaint: SEIZURE Time Seen by Provider: 07/04/18 18:56 Hx Obtained From: Patient Hx Last Menstrual Period: non Severity Currently: None Aggravating Factor(s): Nothing Alleviating Factor(s): Nothing - Allergies/Home Medications Allergies/Adverse Reactions: Allergies Allergy/AdvReac Type Severity Reaction Status Date / Time bee venom protein (honey bee) Allergy Hives Verified 07/04/18 19:09 cephalexin [From Keflex] Allergy Hives Verified 07/04/18 19:09 morphine Allergy Hives Verified 07/04/18 19:09 mushroom Allergy Hives Verified 07/04/18 19:09 Sulfa (Sulfonamide Allergy Rash Verified 07/04/18 19:09 Antibiotics) enviromental Allergy Eyes Uncoded 07/04/18 19:09 Itchy/Swollen/Red/Watery Home Medications: Home Medications Eslicarbazepine Acetate [Aptiom] 800 mg PO BID 07/04/18 [History Confirmed 07/04] PMH/Surg Hx/FS Hx/Imm Hx Endocrine/Hematology History: Reports: Hx Thyroid Disease, Hx Anemia - IV iron tx Denies: Hx Anticoagulant Therapy, Hx Diabetes Cardiovascular History: Denies: Hx Congestive Heart Failure, Hx Hypertension, Hx Pacemaker/ICD Comment Only: Other Cardiovascular Problems/Disorders - Arteriovenous malformation - Sx repair in 2008. Right atrial enlargement. 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 RT TEMPORAL LOBE IN 2008 [facility] (removed scar tissue). 5 CSECTIONS. VNM simulater.07/2017 Hx Anesthesia Reactions: No - Immunization History Date of Tetanus Vaccine: None Date of Influenza Vaccine: None Infectious Disease History: No Infectious Disease History: Denies: Hx Hepatitis, Hx Human Immunodeficiency Virus (HIV), Traveled Outside the [place] in Last 30 Days - Family History Known Family History: Positive: Cardiac Disease, Hypertension, Other - cancer Negative: Diabetes - Social History Occupation: Unemployed Lives: With Family Alcohol Use: None Hx Substance Use: No Substance Use Type: Reports: Marijuana Substance Use Comment - Amount & Last Used: Ativan Hx Tobacco Use: Yes Smoking Status (MU): Former Smoker Have You Smoked in the Last Year: Yes - had of close relative on 2016 so smoked to cope Review of Systems Negative: Fever Neurological: Other - Seizure or pseuo-seizure All Other Systems Reviewed And Are Negative: Yes Physical Exam - Summary Physical Exam Summary: VITAL SIGNS: Reviewed. GENERAL: Patient is a well-developed and nourished FEMALE who is lying comfortable in the stretcher. Patient is not in any acute respiratory distress. HEAD AND FACE: No signs of trauma. No ecchymosis, hematomas or skull depressions. No sinus tenderness. EYES: PERRLA, EOMI x 2, No injected conjunctiva, no nystagmus. EARS: Hearing grossly intact. Ear canals and tympanic membranes are within normal limits. MOUTH: Oropharynx within normal limits. NECK: Supple, trachea is midline, no adenopathy, no JVD, no carotid bruit, no c- spine tenderness, neck with full ROM. CHEST: Symmetric, no tenderness at palpation LUNGS: Clear to auscultation bilaterally. No wheezing or crackles. CVS: Regular rate and rhythm, S1 and S2 present, no murmurs or gallops appreciated. ABDOMEN: Soft, non-tender. No signs of distention. No rebound no guarding, and no masses palpated. Bowel sounds are normal. EXTREMITIES: FROM in all major joints, no edema, no cyanosis or clubbing. NEURO: Alert and oriented x 3. No acute neurological deficits. Speech is normal and follows commands. SKIN: Dry and warm Triage Information Reviewed: Yes Vital Signs On Initial Exam: Initial Vitals Temp Pulse Resp BP Pulse Ox 98.1 F 130 20 108/81 99 07/04/18 18:51 07/04/18 18:51 07/04/18 18:51 07/04/18 18:51 07/04/18 18:51 Vital Signs Reviewed: Yes Diagnostics - Vital Signs Vital Signs Temp Pulse Resp BP Pulse Ox 07/04/18 18:51 98.1 F 130 20 108/81 99 - Laboratory Result Diagrams: 07/04/18 19:50 07/04/18 19:50 Lab Statement: Any lab studies that have been ordered have been reviewed, and results considered in the medical decision making process. - EKG 1 Cardiac Rate: NL - 77 BPM EKG Rhythm: Sinus Rhythm EKG Interpretation: 20:35. No ST elevation. Altered Mental Statu Course/Dx - Course Assessment/Plan: This patient is a 37 year old F presenting to [facility] with a chief complaint of a seizure since 18:52. Patient had a witness of this at home. Laz from EMS states that these are pseudo-seizures. 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 Patient is currently taking Benadryl, potassium, Aptiom (800 mg twice a day), magnesium, Levothyroxine, vitamin D, Briviact (100 mg in the morning and 150 at night), vitamin C, and Tylenol. Blood tests without any significant abnormality except for lactic acid is 2.1. In the ER course of the patient is alert and oriented 3 she is not having any postictal state. I discussed the case with Dr. Broussard from neurology and he recommends no changes at this time just follow-up with Dr. Henderson and Dr. Coles. The patient at this time is alert oriented 3 therefore she will be discharged home with follow-up with PCP. I discussed all the findings and test results with the patient. Patient was instructed to return to the emergency room immediately if any of the symptoms return or worsens. Plan of care was discussed with the patient and understands and agrees. All questions were answered at patient satisfaction. There were no further complaints or concerns. Lung exam before discharge: CTA B/L. Good air exchange. No wheezing or crackles heard. CVS: S1 and S2 present. No murmurs appreciated. Patient is alert and oriented x 3. Patient is hemodynamically stable. Patient will be discharged home with follow up PCP in the next 2-3 days - Diagnoses Differential Diagnosis/HQI/PQRI: Medication Reaction, Metabolic Disorder, Seizure Provider Diagnoses: Seizure - Provider Notifications Discussed Care Of Patient With: Nadeem Solorio - Neurology Time Discussed With Above Provider: 21:00 Instructed by Provider To: Other - Discharge the patient. No new or changing treatment at this time. Discharge - Sign-Out/Discharge Documenting (check all that apply): Patient Departure - D/C - Discharge Plan Condition: Stable Disposition: HOME Patient Education Materials: Epilepsy (ED) Referrals: Madhavi Mayorag MD [Primary Care Provider] - 3 Days Additional Instructions: Return to the ED for new or worsening symptoms.
[2018-07-04] MEDS ORDERED: Ondansetron INJ* 2 MG/ML VIAL IV ONE (19:30)
[2018-07-04] MEDS ORDERED: NS 0.9% 1000 ML* 1,000 ML IV ONE (19:30)
[2018-07-04 20:08] LABS: ABS Basophils 0 10^3/ul (0-0.2); ABS Eosinophils 0.2 10^3/ul (0-0.6); ABS Lymphocytes 1.6 10^3/ul (1.0-4.8); ABS Monocytes 0.6 10^3/ul (0-0.8); ABS Neutrophils 3.3 10^3/ul (1.5-7.7); ABS Nucleated RBC 0 10^3/ul; Eosinophil % 2.9 % (0-6); Hematocrit 38 % (35-47); Hemoglobin 12.9 g/dl (12.0-16.0); Lymphocyte % 27.7 % (25-47); Mean Corpuscular HGB Conc 34 g/dl (31-36); Mean Corpuscular Hemoglobin 30 pg (27-31); Mean Corpuscular Volume 88 fL (80-97); Mean Platelet Volume 6.9 um3 (7.4-10.4); Nucleated Red Blood Cells % 0.1; Platelet Count 318 10^3/ul (150-450); Red Blood Count 4.31 10^6/ul (4.00-5.40); Red Cell Distribution Width 13 % (10.5-15); White Blood Count 5.7 10^3/ul (3.5-10.8)
[2018-07-04 20:19] LABS: EGFR Non-African American 115.3 (>60)
[2018-07-04 20:30] LABS: INR 0.97 (0.77-1.02)
[2018-07-04 21:39] VITALS: BP 107/64
== END 2018-07-04 21:41 | disposition home or self-care (01) ==
LOC: ED 18:48
DX: R56.9 Unspecified convulsions (principal); Z88.5 Allergy status to narcotic agent; Z88.2 Allergy status to sulfonamides; Z88.1 Allergy status to other antibiotic agents; Z91.030 Bee allergy status; Z87.891 Personal history of nicotine dependence
CPT/HCPCS: 36415; 80053; 83605; 83735; 85025; 85610; 93005; 96374; 99283; J2405

== ENCOUNTER 2018-07-24 07:51 | Emergency (ER) | payer OTHER ==
--- NOTE | 2018-07-24 08:01 | ED ---
Neurological HPI - HPI Summary HPI Summary: This pt is a 37 y/o female presenting to [facility] via EMS c/o an unwitnessed seizure today. Currently pt also c/o dizziness and nausea. She has hx of vertigo but states this dizziness is different. Pt reports that she had a seizure a couple of minutes before calling the ambulance, but is unsure of the time. Pt does not know how long her seizure lasted. Pt states she has not followed up with a neurologist yet but is supposed to see Dr. Coles. She reports she ran out of her prescription for Aptiom (800 mg BID) and has not taken it since 07/19 until this morning. - History of Current Complaint Stated Complaint: SEIZURE Hx Obtained From: Patient Hx Last Menstrual Period: non Onset/Duration: Sudden Onset, Resolved Timing: Sudden Onset Neurological Deficit Location: Generalized Character: Head Spinning, Dizzy Aggravating: Nothing Alleviating: Nothing Associated Signs and Symptoms: Positive: Dizziness, Seizure, Nausea/Vomiting - POS: nausea. NEG: vomiting. Negative: Fever, Chest Pain Related Hx: Seizure - Additional Pertinent History Primary Care Physician: CORAL - Allergy/Home Medications Allergies/Adverse Reactions: Allergies Allergy/AdvReac Type Severity Reaction Status Date / Time bee venom protein (honey bee) Allergy Hives Verified 07/24/18 08:04 cephalexin [From Keflex] Allergy Hives Verified 07/24/18 08:04 morphine Allergy Hives Verified 07/24/18 08:04 mushroom Allergy Hives Verified 07/24/18 08:04 Sulfa (Sulfonamide Allergy Rash Verified 07/24/18 08:04 Antibiotics) enviromental Allergy Eyes Uncoded 07/24/18 08:04 Itchy/Swollen/Red/Watery Home Medications: Home Medications Sertraline* [Zoloft*] 50 mg PO DAILY 07/24/18 [History Confirmed 07/24/18] PMH/Surg Hx/FS Hx/Imm Hx Endocrine/Hematology History: Reports: Hx Thyroid Disease, Hx Anemia - IV iron tx Denies: Hx Anticoagulant Therapy, Hx Diabetes Cardiovascular History: Denies: Hx Congestive Heart Failure, Hx Hypertension, Hx Pacemaker/ICD Comment Only: Other Cardiovascular Problems/Disorders - Arteriovenous malformation - Sx repair in 2008. Right atrial enlargement. 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 RT TEMPORAL LOBE IN 2008 [facility] (removed scar tissue). 5 CSECTIONS. VNM simulater.07/2017 Hx Anesthesia Reactions: No - Immunization History Date of Tetanus Vaccine: None Date of Influenza Vaccine: None Infectious Disease History: Denies: Hx Hepatitis, Hx Human Immunodeficiency Virus (HIV) - Family History Known Family History: Positive: Cardiac Disease, Hypertension, Other - cancer Negative: Diabetes - Social History Alcohol Use: None Hx Substance Use: No Substance Use Type: Reports: Marijuana Substance Use Comment - Amount & Last Used: Ativan Hx Tobacco Use: Yes Smoking Status (MU): Former Smoker Have You Smoked in the Last Year: Yes - had of close relative on 2016 so smoked to cope Review of Systems Negative: Fever, Chills Eyes: Negative ENT: Negative Negative: Chest Pain Positive: Nausea. Negative: Abdominal Pain, Vomiting Neurological: Other - POS: seizure, dizziness All Other Systems Reviewed And Are Negative: Yes Physical Exam - Summary Physical Exam Summary: VITAL SIGNS: Reviewed. GENERAL: Patient is a well-developed and nourished female who is lying comfortable in the stretcher. Patient is not in any acute respiratory distress. HEAD AND FACE: No signs of trauma. No ecchymosis, hematomas or skull depressions. No sinus tenderness. EYES: PERRLA, EOMI x 2, No injected conjunctiva, no nystagmus. EARS: Hearing grossly intact. Ear canals and tympanic membranes are within normal limits. MOUTH: Oropharynx within normal limits. NECK: Supple, trachea is midline, no adenopathy, no JVD, no carotid bruit, no c- spine tenderness, neck with full ROM. CHEST: Symmetric, no tenderness at palpation LUNGS: Clear to auscultation bilaterally. No wheezing or crackles. CVS: Regular rate and rhythm, S1 and S2 present, no murmurs or gallops appreciated. ABDOMEN: Soft, non-tender. No signs of distention. No rebound no guarding, and no masses palpated. Bowel sounds are normal. EXTREMITIES: FROM in all major joints, no edema, no cyanosis or clubbing. NEURO: Alert and oriented x 3. No acute neurological deficits. Speech is normal and follows commands. SKIN: Dry and warm Triage Information Reviewed: Yes Vital Signs On Initial Exam: Initial Vitals Temp Pulse Resp BP Pulse Ox 98.6 F 92 18 120/100 96 07/24/18 07:59 07/24/18 07:59 07/24/18 07:59 07/24/18 07:59 07/24/18 07:59 Vital Signs Reviewed: Yes Diagnostics - Laboratory Result Diagrams: 07/24/18 08:25 07/24/18 08:25 Lab Statement: Any lab studies that have been ordered have been reviewed, and results considered in the medical decision making process. - EKG 08:13 Cardiac Rate: NL - at 90 bpm EKG Rhythm: Sinus Rhythm EKG Interpretation: No ST elevations. Normal axis. Course/Dx - Course Assessment/Plan: This patient is a 37-year-old female with known history of seizure disorder on Briviact 800 mg BIB, Aptiom 800 mg BID and Brivaracetam BID. Patient reports that she had a seizure this morning. It was not witnessed and she doesnt know the duration of the seizure. Arrival to the emergency department the patient is alert and oriented 3 and she doesnt have any post ictal state. Patient reports that she was not taking her Aptiom medications since she ran out of them. However , she filled the medication and she started taking the Aptiom this morning. Blood work without any significant abnormality. Patient was given meclizine for dizziness and also Zofran for nausea and vomiting. At present the patient is lying comfortably on the stretcher. At this time I discussed my physical exam, findings and test results with Dr. Liu from neurology and he recommends for the patient to be discharged home with the current medications. Also he recommends not to run out of the antiseizure medications. He doesnt recommend any head CT since the patient is back to normal and she has no neurological focal deficits. I discussed the findings and test results and plan and the patient understands and agrees. Patient was asked to return to the emergency room if she develops any other symptom. She understands and agrees. - Differential Dx Differential Diagnoses Neuro: Positive: Seizure Disorder, Transient Ischemic Attack - Diagnoses Provider Diagnoses: Seizure - Physician Notifications Discussed Care Of Patient With: Zion Liu Time Discussed With Above Provider: 08:56 Instructed by Provider To: Other - Discussed pt care with Dr. Liu, neurologist , who recommends to discharge the pt home. Discharge - Sign-Out/Discharge Documenting (check all that apply): Patient Departure - Discharge - Discharge Plan Condition: Stable Disposition: HOME Patient Education Materials: Recurrent Seizures in Adults (ED) Referrals: Leatha Coles MD [Medical Doctor] - Madhavi Mayorga MD [Primary Care Provider] - Additional Instructions: Please follow up with your primary care provider and neurologist. RETURN TO THE ED FOR ANY NEW OR WORSENING SYMPTOMS. - Billing Disposition and Condition Condition: STABLE Disposition: Home - Attestation Statements Document Initiated by Scribe: Yes Documenting Scribe: Ruby Nunez Provider For Whom Rocioe is Documenting (Include Credential): Gumaro Lee MD Scribe Attestation: IRuby, scribed for Gumaro Lee MD on 07/25/18 at 0807. Scribe Documentation Reviewed: Yes Provider Attestation: The documentation as recorded by the Ruby weller accurately reflects the service I personally performed and the decisions made by me, Gumaro Lee MD
[2018-07-24] MEDS ORDERED: Ondansetron INJ* 2 MG/ML VIAL IV ONE ×2 (08:29→09:23)
[2018-07-24] MEDS ORDERED: Meclizine TAB* 12.5 MG PO ONE (08:29)
[2018-07-24 08:32] LABS: ABS Basophils 0 10^3/ul (0-0.2); ABS Eosinophils 0.2 10^3/ul (0-0.6); ABS Lymphocytes 2.4 10^3/ul (1.0-4.8); ABS Monocytes 0.6 10^3/ul (0-0.8); ABS Neutrophils 2.1 10^3/ul (1.5-7.7); ABS Nucleated RBC 0 10^3/ul; Eosinophil % 4.6 % (0-6); Hematocrit 35 % (35-47); Hemoglobin 12.3 g/dl (12.0-16.0); Lymphocyte % 44.1 % (25-47); Mean Corpuscular HGB Conc 35 g/dl (31-36); Mean Corpuscular Hemoglobin 30 pg (27-31); Mean Corpuscular Volume 87 fL (80-97); Mean Platelet Volume 6.6 um3 (7.4-10.4); Nucleated Red Blood Cells % 0.1; Platelet Count 267 10^3/ul (150-450); Red Blood Count 4.06 10^6/ul (4.00-5.40); Red Cell Distribution Width 13 % (10.5-15); White Blood Count 5.4 10^3/ul (3.5-10.8)
[2018-07-24 08:46] LABS: INR 0.96 (0.77-1.02)
[2018-07-24 08:48] LABS: EGFR Non-African American 133.4 (>60)
[2018-07-24 09:47] VITALS: BP 108/73
== END 2018-07-24 09:45 | disposition home or self-care (01) ==
LOC: ED 07:51
DX: R56.9 Unspecified convulsions (principal); R42 Dizziness and giddiness; R11.2 Nausea with vomiting, unspecified; Z87.891 Personal history of nicotine dependence
CPT/HCPCS: 36415; 80053; 80320; 83605; 83735; 84443; 85025; 85610; 93005; 96374; 96375; 99283; A9270-GY; G0480; J2405

== ENCOUNTER → 2018-07-29 19:17 | Emergency (ER) | payer OTHER ==
--- NOTE | 2018-07-29 19:38 | ED ---
Neurological HPI - HPI Summary HPI Summary: 37 y/o female BIBA c/o seizure 1x earlier today at around 19:00. Pt states she had her usual "auras" and the seizures were characterized with head turning. Pt accompanied by her father. Dr. Coles's pt. Medication compliant. Sx not aggravated or alleviated by anything. Currently the pt states she is having auras. PMHx seizures, anxiety. - History of Current Complaint Stated Complaint: SEIZURE Time Seen by Provider: 07/29/18 19:37 Hx Obtained From: Patient Hx Last Menstrual Period: non Onset/Duration: Started hours ago, Resolved Timing: Intermittent Episodes Lasting: - 1x Number of Seizures: 1 Neurological Deficit Location: Generalized Aggravating: Nothing Alleviating: Nothing - Additional Pertinent History Primary Care Physician: CORAL - Allergy/Home Medications Allergies/Adverse Reactions: Allergies Allergy/AdvReac Type Severity Reaction Status Date / Time bee venom protein (honey bee) Allergy Hives Verified 07/29/18 19:47 cephalexin [From Keflex] Allergy Hives Verified 07/29/18 19:47 morphine Allergy Hives Verified 07/29/18 19:47 mushroom Allergy Hives Verified 07/29/18 19:47 Sulfa (Sulfonamide Allergy Rash Verified 07/29/18 19:47 Antibiotics) enviromental Allergy Eyes Uncoded 07/29/18 19:47 Itchy/Swollen/Red/Watery Home Medications: Home Medications Ondansetron ODT TAB* [Zofran 4 MG Odt TAB*] 4 mg PO Q6HR PRN 07/29/18 [History Confirmed 07/29/18] PMH/Surg Hx/FS Hx/Imm Hx Previously Healthy: No Endocrine/Hematology History: Reports: Hx Thyroid Disease, Hx Anemia - IV iron tx Denies: Hx Anticoagulant Therapy, Hx Diabetes Cardiovascular History: Denies: Hx Congestive Heart Failure, Hx Hypertension, Hx Pacemaker/ICD Comment Only: Other Cardiovascular Problems/Disorders - Arteriovenous malformation - Sx repair in 2008. Right atrial enlargement. 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 RT TEMPORAL LOBE IN 2008 [facility] (removed scar tissue). 5 CSECTIONS. VNM simulater.07/2017 Hx Anesthesia Reactions: No - Immunization History Date of Tetanus Vaccine: None Date of Influenza Vaccine: None Infectious Disease History: Denies: Hx Hepatitis, Hx Human Immunodeficiency Virus (HIV), Traveled Outside the [place] in Last 30 Days - Family History Known Family History: Positive: Cardiac Disease, Hypertension, Other - cancer Negative: Diabetes - Social History Alcohol Use: None Hx Substance Use: No Substance Use Type: Reports: Marijuana Substance Use Comment - Amount & Last Used: Ativan Hx Tobacco Use: Yes Smoking Status (MU): Former Smoker Have You Smoked in the Last Year: Yes - had of close relative on 2016 so smoked to cope Review of Systems Negative: Fever, Chills Negative: Drainage Negative: Sore Throat Negative: Chest Pain Negative: Shortness Of Breath, Cough Negative: Abdominal Pain, Vomiting, Nausea Negative: dysuria, hematuria Negative: Myalgia, Edema Negative: Rash Neurological: Other - no dizziness. Seizure 1x All Other Systems Reviewed And Are Negative: Yes Physical Exam - Summary Physical Exam Summary: Constitutional: Well-developed, Well-nourished, Alert. (-) Distressed Skin: Warm, Dry HENT: Normocephalic; Atraumatic Eyes: Conjunctiva normal Neck: Musculoskeletal ROM normal neck. (-) JVD, (-) Stridor, (-) Tracheal deviation Cardio: Rhythm regular, rate normal, Heart sounds normal; Intact distal pulses; The pedal pulses are 2+ and symmetric. Radial pulses are 2+ and symmetric. (-) Murmur Pulmonary/Chest wall: Effort normal. (-) Respiratory distress, (-) Wheezes, (-) Rales Abd: Soft, (-) epigastric tenderness, (-) Distension, (-) Guarding, (-) Rebound Musculoskeletal: (-) Edema Lymph: (-) Cervical adenopathy Neuro: Alert, Oriented x3 Psych: Mood and affect Normal Triage Information Reviewed: Yes Vital Signs Reviewed: Yes Diagnostics - Laboratory Result Diagrams: 07/29/18 20:20 07/29/18 20:20 Lab Statement: Any lab studies that have been ordered have been reviewed, and results considered in the medical decision making process. Course/Dx - Course Assessment/Plan: Spoke with Dr. Solorio who will facilitate f/u for the pt. Pt will be d/c home. - Diagnoses Provider Diagnoses: Breakthrough seizure - Physician Notifications Discussed Care Of Patient With: Nadeem Solorio Time Discussed With Above Provider: 22:15 Instructed by Provider To: Other - Dr. Solorio will facilitate d/c Discharge - Sign-Out/Discharge Documenting (check all that apply): Patient Departure - Discharge Plan Condition: Stable Disposition: HOME Patient Education Materials: Recurrent Seizures in Adults (ED) Referrals: [facility] [Outside] - 5 Days (PLEASE F/U IN 3-5 DAYS) Nadeem Solorio MD [Medical Doctor] - 3 Days (PLEASE F/u IN 2-3 DAYS) Additional Instructions: RETURN TO THE ED FOR WORSENING SYMPTOMS - Attestation Statements Document Initiated by Scribe: Yes Documenting Scribe: Riley Norris Provider For Whom Scribe is Documenting (Include Credential): Dylno Dean MD Scribe Attestation: Riley Bolton, scribed for Dylon Dean MD on 07/29/18 at 3530.
[2018-07-29 20:30] LABS: Hematocrit 41 % (35-47); Hemoglobin 13.9 g/dl (12.0-16.0); Mean Corpuscular HGB Conc 34 g/dl (31-36); Mean Corpuscular Hemoglobin 30 pg (27-31); Mean Corpuscular Volume 88 fL (80-97); Mean Platelet Volume 6.8 um3 (7.4-10.4); Platelet Count 268 10^3/ul (150-450); Red Blood Count 4.67 10^6/ul (4.00-5.40); Red Cell Distribution Width 13 % (10.5-15); White Blood Count 7.1 10^3/ul (3.5-10.8)
[2018-07-29 22:45] VITALS: BP 120/70
== END | disposition home or self-care (01) ==
LOC: ED 19:17
DX: G40.909 Epilepsy, unspecified, not intractable, without status epilepticus (principal); Z87.891 Personal history of nicotine dependence; Z88.5 Allergy status to narcotic agent; Z88.3 Allergy status to other anti-infective agents; Z88.2 Allergy status to sulfonamides
CPT/HCPCS: 36415; 80053; 83735; 85027; 99283

== ENCOUNTER 2018-08-27 00:42 | Emergency (ER) | payer OTHER ==
--- OUTSIDE RECORDS SUMMARY | 2018-08-27 01:12 | XMS REPORT ---
:1980 External Reference #:[id number] Author Organization [facility] Address [address] [place] [address] [place] [address] Phone [phone] Care Team Providers Name Role Phone Madhavi Soto MD Primary Care Physician Unavailable Payers Type Date Identification Numbers Payment Provider Subscriber Commercial Effective: Policy Number: [id number] [employer] Selena Diane 2016 Medicaid PayID: [id number] [address] [place] [id number] Commercial Expires: 2017 Policy Number: [employer] Selena Matos [id number] Essential Andrea PayID: [id number] [place] [address] Problems Date Description Provider Status Onset: 11/25/2014 [...] Description Comments ETOH Use Denies alcohol use over a year ago, 2016 Smoking Patient is a former smoker Patient quit in 2003 Allergies, Adverse Reactions, Alerts Date Description Reaction Status Severity Comments 04/23/2013 Morphine active 11/25/2014 Lacosamide active Severe 11/25/2014 Zonisamide rash active Moderate Medications Medication Date Status Form Strength Qnty SIG Indications Ordering Provider Divalproex 08/14 Active Tablets ER 250mg 60tab 1 by G40.219 Ezequiel SJose Christie 24HR s aura Henderson, every M.D. night at bedtime for 1 week then 2 every night at bedtime Levothyroxine 08/14 Active Tablets 50mcg 30tab 1 po qd Ezequiel Christie fadi Henderson M.D. Vitamin B-12 07/31 Active Tablets 500mcg 90tab 1 by Ezequiel Malik s aura Henderson, Gissell every day M.D. Zofran 07/24 Active Tablets 8mg 9tabs 1/2-one Leatha Coles by aura BATRES every 8 hours as needed for nausea Clonazepam 06/09 Active Tablets 0.5mg 5tabs 1 tablet by aura Butcher, at M.D. bedtime x 3 days, then use remaining tablets as needed maximum 1 tablet at bedtime. Aptiom 04/05 Active Tablets 800mg 60tab take one G40.219 s tab by Chele Ortega mouth twice daily Sertraline HCL 12/07 Active Tablets 50mg 60tab 2 tablets F41.9 kush s by aura Ortega M.D. every day Magnesium Oxide 09/18 Active Tablets 400mg 30tab 1 by G43.109 Leatha Coles s aura BATRES every day Naproxen 09/18 Active Tablets 500mg 60tab 1 up to G43.109 Leatha Coles s twice a MD day as needed for migraine. Avoid using more than 2 to 3 times per week Briviact 07/28 Active Tablets 100mg 75tab 1 by Ezequiel Malik fadi Henderson, every M.D. morning and 1 1/2 every night at bedtime Acetaminophen 0000 Active Tablets 325mg 120ta take 2 Unknown /0000 bs tabs prn Vitamin D Active Tablets 2000Units 1 in Unknown (Cholecalcifero /0000 am,1000 l) units at night Potassium 0000 Active Tablets ER 10Meq take 1 Unknown Chloride ER /0000 tablet by mouth once daily Ferrous Sulfate Active Tablets 325(65Fe) 1 tab po Unknown /0000 mg qd Divalproex 07/[address] 250mg 120ta 1 po at 6 G40.219 Ezequiel Malik Sodium bs PM for 1 Beatriz, - wk then 1 M.D. 08/14 at 6 Am and 6 PM for 1 wk then 2 at 6 Am and 6 PM Klonopin 02/11 Hx Tablets 0.5mg 6tabs 1 [...] Hx Tablets 5-300mg 3tabs take 1 po q 6 Cowdery, - hours, as M.D. [...] s mouth MD - twice 07/28 daily Clonazepam 06/25 Hx Tablets 0.125mg 35tab 1 [...] 04/23 Hx Tablets 0.5mg 7tabs 1/2 tab Nathen Dispers po bid Chele Ortega - 12/03 Citalopram 04/23 Hx Tablets 20mg 60tab 2 by F41.9 Winston Villar s mouth MD - daily in 05/20 morning Onfi 04/12 Hx Tablets 10mg 4tabs 1/2 [...] x1 week then 3 tablets at bedtime [id number] then 4 tablets at bedtime Citalopram 01/22 Hx Tablets 10mg 60tab take 1 by F41.9 Winston Villar s mouth MD - once 04/23 daily for 1 week then 2 by mouth once daily Phenytoin 10/09 Hx Capsules 100mg 90cap 3 cap by Mayte Culver s mouth Maddy, - every M.D. 10/30 night Aptiom 01/10 Hx Tablets 400mg 60tab 1 in am G40.211 Leatha Coles s MD - 12/20 Folic Acid 11/25 Hx Tablets 1mg 30tab 1 by V22.2 Lucy s mouth Guadalupe, - every day M.D. 08/03 Oxcarbazepine 08/01 Hx Suspension 300mg/5ML 750ml 5ml by Leatha Coles mouth MD - twice 10/31 Folic Acid 09/02 Hx Tablets 1mg 60tab take two Lucy s by mouth Cowdery, - each day M.D. 10/13 Levetiracetam 08/21 Hx Solution 100mg/ml 1200u take 4 Leatha Coles ashish teaspoons MD - in the Am 05/28 and teaspoons in the PM, shake before using Flintstones Hx Chewtabs 60mg Unknown Complete /0000 - 10/13 Vitamin B12 Hx Tablets ER 1000mcg 30tab 1 po qd Unknown /0000 s - 10/13 Lorazepam Hx Tablets 1mg 30tab 1 by Leathapascale Coles, / s mouth - three 02/13 times day [...] every day 08/03 Hydrocodone-Jefry Hx Tablets 5-325mg Romero, taminophen / Marline Lopez MD 12/21 Ra Hx Tablets ER take 1 Unknown B-Complex/Vitam / tablet in C CR - once 07/30 Oxcarbazepine Hx Tablets 300mg 90tab 1 tab Leathapascale Coles, / s twice a MD - day 06/19 Penicillin V Hx Tablets 500mg 4x a day Unknown Potassium /0000 till out - 09/07 Clindamycin HCL Hx Capsules 150mg one every Unknown /0000 6 hours - 08/20 Hydrocodone-Jefry Hx Tablets 5-325mg 1 tab by Unknown taminophen /0000 mouth - every - 09/07 hours /2016 as needed pain Hydrocortisone Hx Cream 1% use Unknown /0000 sparingly - twice a 09/07 day x weeks Levothyroxine Hx Tablets 25mcg 1 by Unknown Sodium /0000 mouth - every day 08/14 Dicyclomine HCL Hx Capsules 10mg one Unknown / capsule - tid 07/30 Skin Hair Nails Hx 1 tab a Unknown / day - 07/30 Vitamin B-12 Hx Tablets Sub 1 by Ezequiel Malik / mouth Beatriz, - every day M.DJose 07/31 Vital Signs Date Vital Result Comment 08/14/2018 Height 59 inches 4'11" Weight 85.25 lb Heart Rate 82 /min BP Systolic 86 mmHg BP Diastolic 60 mmHg BMI (Body Mass Index) 17.2 kg/m2 07/31/2018 Height 59 inches 4'11" Weight 80.00 lb Heart Rate 80 /min BP Systolic Sitting 98 mmHg BP Diastolic Sitting 72 mmHg Respiratory Rate 16 /min BMI (Body Mass Index) 16.2 kg/m2 04/29/2018 Height 59 inches 4'11" Weight 83.12 [...] Test Date Test Result H/L Range Note CBC Auto Diff 08/14/2018 White Blood Count 5.6 10^3/uL 3.5-10.8 Red Blood Count 4.30 10^6/uL 4.00-5.40 Hemoglobin 12.8 g/dL 12.0-16.0 Hematocrit 38 % 35-47 Mean Corpuscular Volume 88 fL 80-97 Mean Corpuscular Hemoglobin 30 pg 27-31 Mean Corpuscular HGB Conc 34 g/dL 31-36 Red Cell Distribution Width 13 % 10.5-15 Platelet Count 287 10^3/uL 150-450 Mean Platelet Volume 7.3 um3 Low 7.4-10.4 Abs Neutrophils 1.9 10^3/uL 1.5-7.7 Abs Lymphocytes 2.7 10^3/uL 1.0-4.8 Abs Monocytes 0.6 10^3/uL 0-0.8 Abs Eosinophils 0.4 10^3/uL 0-0.6 Abs Basophils 0 10^3/uL 0-0.2 Abs Nucleated RBC 0 10^3/uL Granulocyte % 33.6 % Low 38-83 Lymphocyte % 48.3 % High 25-47 Monocyte % 10.7 % High 0-7 Eosinophil % 6.6 % High 0-6 Basophil % 0.8 % 0-2 Nucleated Red Blood Cells % 0.1 Comp Metabolic Panel 08/14/2018 Sodium 139 mmol/L 135-145 Potassium 3.5 mmol/L 3.5-5.0 Chloride 104 mmol/L 101-111 Co2 Carbon Dioxide 27 mmol/L 22-32 Anion Gap 8 mmol/L 2-11 Glucose 88 mg/dL 70-100 Blood Urea Nitrogen 5 mg/dL Low 6-24 Creatinine 0.59 mg/dL 0.51-0.95 BUN/Creatinine Ratio 8.5 8-20 Calcium 9.3 mg/dL 8.6-10.3 Total Protein 6.0 g/dL Low 6.4-8.9 Albumin 4.4 g/dL 3.2-5.2 Globulin 1.6 g/dL Low 2-4 Albumin/Globulin Ratio 2.8 1-3 Total Bilirubin 0.30 mg/dL 0.2-1.0 Alkaline Phosphatase 53 U/L 34-104 Alt 10 U/L 7-52 Ast 15 U/L 13-39 Egfr Non- 115.3 >60 Egfr 139.6 >60 1 Laboratory test finding 08/14/2018 TSH (Thyroid Stim Horm) 3.19 mcIU/mL 0.34-5.60 2 Free T4 (Free Thyroxine) 0.41 ng/dL Low 0.61-1.12 3 T3 Total 64 ng/dL Low 87-178 4 Vitamin B12 And Folate Serum 08/14/2018 Vitamin B12 680 pg/mL 180-914 5 Folic Acid (Folate) 4.37 ng/mL >3.99 6 Vitamin D 1,25 And Vitamin D,2 08/14/2018 Vitamin D Total 25(Oh) 34.3 ng/mL 20-50 7 Vitamin D, 1,25 Dihydroxy <pending> Laboratory test finding 08/14/2018 Vitamin B6 <pending> Iron & Iron Binding Capacity 08/14/2018 Iron 119 g/dL 50-212 Unsaturated Iron Binding 186 g/dL Total Iron Binding Capacity 305 g/dL 250-450 Transferrin 218 mg/dL 203-362 % Iron Saturation 39 % 15-55 Laboratory test finding 08/14/2018 Ferritin 11.6 ng/mL 11-307 8 Laboratory test finding 12/06/2017 TSH (Thyroid Stim 6.16 mcIU/mL High 0.34-5.60 Horm) Free T4 (Free Thyroxine) 0.59 ng/dL Low 0.61-1.12 Trileptal (Oxcarbazepine) 13 g/mL 3 - 35 9 Clobazam Frisium Level 12/06/2017 Clobazam 133 ng/mL 30-300 Desmethylclobazam 1140 ng/mL 300-3000 10 CBC Auto Diff 07/18/2017 White Blood Count [...] Blood Cells % 0.1 Laboratory test finding 07/18/2017 Levetiracetam (Keppra) <2.0 g/mL 11 Trileptal (Oxcarbazepine) 35 g/mL 3 - 35 12 Inr/Protime 07/18/2017 Inr 0.92 0.89-1.11 Laboratory test finding 07/18/2017 Partial Thrombo Time 32.2 seconds 26.0 -36.3 PTT Urinalysis Profile 07/18/2017 Urine Color Yellow Urine Appearance Cloudy Urine Specific Lyons 1.015 1.010-1.030 Urine pH 5.0 5-9 Urine Urobilinogen Negative Negative Urine Ketones Negative Negative Urine Protein Negative Negative Urine Leukocytes Trace Negative Urine Blood 1+ Negative Urine Nitrite Negative Negative Urine Bilirubin Negative Negative Urine Glucose Negative Negative Urine White Blood Cell Trace(0-5/hpf) Absent Urine Red Blood Cell Trace(0-2/hpf) Absent Urine Bacteria Absent Absent Urine Squamous Epithelial Cell Present Absent Comp Metabolic Panel 07/18/2017 Sodium 137 mmol/L [...] Egfr Non- 113.8 >60 Egfr 146.3 >60 13 Urine Culture And 07/18/2017 Urine Culture SEE RESULT BELOW 14 Sensitivities Laboratory test finding 07/18/2017 Phosphorus 3.3 mg/dL 2.5-5.0 Magnesium 2.1 mg/dL 1.9-2.7 Thyroxine 4.33 g/mL Low 6.09-12.23 TSH (Thyroid Stim Horm) 3.84 mcIU/mL 0.34-5.60 Prolactin 9.4 ng/mL 1.0-25.0 Vitamin D Total 25(Oh) 55.0 ng/mL High 30-50 CBC Auto Diff 06/26/2017 White Blood Count [...] 06/26/2017 Lactic Acid 0.4 mmol/L Low 0.5-2.0 15 Comp Metabolic Panel 06/26/2017 Sodium 131 mmol/L [...] Egfr Non- 143.7 >60 Egfr 184.8 >60 16 Potassium 4.1 mmol/L 3.5-5.0 Anion Gap 6 [...] Egfr Non- 134.2 >60 Egfr 172.6 >60 17 Laboratory test finding 05/27/2017 Magnesium 2.0 mg/dL 1.9-2.7 Laboratory test finding 05/20/2017 Lactic Acid 1.0 mmol/L 0.5-2.0 18 CBC Auto Diff 05/20/2017 White Blood Count [...] Egfr Non- 118.3 >60 Egfr 152.1 >60 19 Laboratory test finding 05/20/2017 Magnesium 2.2 mg/dL 1.9-2.7 Carbamazepine (Tegretol) 2.0 g/mL Low 4.0-12.0 Inr/Protime 05/20/2017 Inr 0.90 0.89-1.11 Laboratory test finding 05/20/2017 Levetiracetam (Keppra) 28.8 g/mL 20 CBC Auto Diff 05/05/2017 White Blood Count [...] Color Yellow Urine Appearance Cloudy Urine Specific Lyons 1.013 1.010-1.030 Urine pH 7.0 5-9 Urine Urobilinogen Negative Negative Urine Ketones Negative Negative Urine Protein Negative Negative Urine Leukocytes Trace Negative Urine Blood Negative Negative * * Negative 21 Urine Nitrite Negative Negative Urine Bilirubin Negative [...] Egfr Non- 140.4 >60 Egfr 180.6 >60 22 Laboratory test finding 05/05/2017 Magnesium 1.9 mg/dL 1.9-2.7 TSH (Thyroid Stim Horm) 1.80 mcIU/mL 0.34-5.60 Urine Culture And 05/05/2017 Urine Culture SEE RESULT 23 Sensitivities BELOW Laboratory test finding 05/05/2017 Levetiracetam (Keppra) 36.5 g/mL 24 Inr/Protime 04/29/2017 Inr 0.91 0.89-1.11 CBC Auto [...] finding 04/29/2017 Lactic Acid 1.4 mmol/L 0.5-2.0 25 Comp Metabolic Panel 04/29/2017 Sodium 136 mmol/L [...] Egfr Non- 125.8 >60 Egfr 161.8 >60 26 Laboratory test finding 04/29/2017 Magnesium 2.0 mg/dL 1.9-2.7 Levetiracetam (Keppra) 66.4 g/mL 27 Trileptal (Oxcarbazepine) 28 g/mL 3 - 35 28 Urine Drug SCR ED & 04/27/2017 Amphetamine Ur Screen None Detected None Detect Pain Clinic Barbiturates Urine Screen None Detected None Detect Benzodiazepine Urine Screen Presumptive Posi <SEE NOTE> None Detect 29 Urine Cannabinoids Screen None Detected None Detect Urine Cocaine Screen None Detected None Detect Urine Opiates Screen Presumptive Posi <SEE NOTE> None Detect 30 Urine Phencyclidine Screen None Detected None Detect 31 Inr/Protime 04/27/2017 Inr 0.93 0.89-1.11 Laboratory test finding 04/27/2017 Levetiracetam (Keppra) 46.6 g/mL 32 Trileptal (Oxcarbazepine) 37 g/mL 3 - 35 33 Laboratory test finding 04/27/2017 Partial Thrombo Time [...] Cells % 0.1 Laboratory test finding 04/27/2017 Lactic Acid 0.6 mmol/L 0.5-2.0 34 Urinalysis Profile 04/27/2017 Urine Color Yellow Urine Appearance Cloudy Urine Specific Lyons 1.018 1.010-1.030 Urine pH 7.0 5-9 Urine Urobilinogen Negative Negative Urine Ketones Negative Negative Urine Protein Negative Negative Urine Leukocytes Trace Negative Urine Blood Negative Negative * * Negative 35 Urine Nitrite Negative Negative Urine Bilirubin Negative Negative Urine Glucose Negative Negative Urine White Blood Cell Trace(0-5/hpf) Absent Urine Red Blood Cell Trace(0-2/hpf) Absent Urine Bacteria Absent Absent Urine Squamous Epithelial Cell Present Absent Urine Amorphous Crystals Present Absent Comp Metabolic Panel 04/27/2017 Sodium 135 mmol/L [...] Egfr Non- 118.3 >60 Egfr 152.1 >60 36 Urine Culture And 04/27/2017 Urine Culture SEE RESULT BELOW 37 Sensitivities Laboratory test finding 04/27/2017 Magnesium 2.1 mg/dL 1.9-2.7 Creatine Kinase(CK) 51 U/L 10-223 Alcohol < 10 mg/dL <10 Comp Metabolic Panel 04/21/2017 Sodium 137 mmol/L [...] Egfr Non- 98.5 >60 Egfr 126.6 >60 38 Laboratory test finding 04/21/2017 Magnesium 2.2 mg/dL 1.9-2.7 Creatine Kinase(CK) 66 U/L 10-223 C Reactive Protein 1.60 mg/L < 5.00 39 HCG < 0.60 mIU/mL 40 CBC Auto Diff 04/21/2017 White Blood Count [...] Color Yellow Urine Appearance Cloudy Urine Specific Lyons 1.032 High 1.010-1.030 Urine pH 5.0 5-9 [...] Epithelial Cell Present Absent Laboratory test finding 04/21/2017 Lactic Acid 1.0 mmol/L 0.5-2.0 41 Levetiracetam (Keppra) 35.0 g/mL 42 Trileptal (Oxcarbazepine) 28 g/mL 3 - 35 43 Laboratory test finding 03/19/2017 Clotest SEE RESULT BELOW 44 Laboratory test finding 11/23/2016 Trileptal 11 g/mL 3 - 35 45 (Oxcarbazepine) Levetiracetam (Keppra) 63.6 g/mL 46 Laboratory test finding 11/24/2015 Levetiracetam (Keppra) 21.7 g/mL 47 Urinalysis Profile 07/14/2015 Urine Color Yellow Urine Appearance Cloudy Urine Specific Lyons 1.017 1.010-1.030 Urine pH 6.0 5-9 Urine [...] 07/14/2015 Urine Culture And SEE RESULT BELOW 48 finding Sensitivities Laboratory test 07/10/2015 Partial Thrombo Time 28.1 seconds 26.0-36.3 finding PTT Laboratory test 07/10/2015 Lactic Acid 1.4 mmol/L 0.5-2.2 finding Laboratory test 07/10/2015 Urine Culture And SEE RESULT BELOW 49 finding Sensitivities Blood Culture SEE RESULT BELOW 50 Laboratory test finding 07/10/2015 C Reactive Protein 106.54 mg/L High < 5.00 51 Urinalysis Profile 07/10/2015 Urine Color Yellow Urine Appearance Cloudy Urine Specific Lyons 1.017 1.010-1.030 Urine pH 5.0 5-9 Urine [...] Epithelial Cell Present Absent CBC Auto Diff 07/10/2015 White Blood Count [...] 0-2 Nucleated Red Blood Cells % 0.4 Comp Metabolic Panel 07/10/2015 Sodium 138 mmol/L [...] Egfr Non- 152.6 >60 Egfr 196.3 >60 52 Inr/Protime 07/10/2015 Inr 0.83 0.78-1.07 Laboratory test finding 06/05/2015 Creatine Kinase(CK) 72 U/L 10-223 Troponin-I (TnI) 0.00 ng/mL <0.03 53 B-Type Natriuretic Peptide BNP 104 pg/mL High 54 CBC Auto Diff 06/05/2015 White Blood Count [...] Egfr Non- 201.1 >60 Egfr 258.7 >60 55 CBC No Diff 01/12/2015 White Blood Count 8.5 10^3/uL 4.8-10.8 56 Red Blood Count 4.10 10^6/uL 4.0-5.4 56 Hemoglobin 12.6 g/dL 12.0-16.0 56 Hematocrit 37 % 35-47 56 Mean Corpuscular Volume 90 fL 80-97 56 Mean Corpuscular Hemoglobin 31 pg 27-31 56 Mean Corpuscular HGB Conc 34 g/dL 31-36 56 Red Cell Distribution Width 15 % 10.5-15 56 Platelet Count 245 10^3/uL 150-450 56 Mean Platelet Volume 9 um3 7.4-10.4 56 Laboratory test finding 01/12/2015 Rubella Screen Equivocal IU/mL Immune 56, 57 Type & Screen 01/12/2015 Patient Blood Type O Positive 56 Antibody Screen NEGATIVE 56 Laboratory test finding 01/12/2015 Hemoglobin A1c 4.9 % Less than 6.0 56 , 58 Levetiracetam 16.8 g/mL 56, 59 Oxcarbazepine 19 g/mL 3 - 35 56, 60 Syphilis Screen 01/12/2015 Syphilis IgG TNP Nonreactive 56 RPR Nonreactive Nonreactive 56 RPR Titer TNP 56 Pediatric/Maternal YES 56 Laboratory test 01/12/2015 Hepatitis B Surface Nonreactive Nonreactive 56, 61 finding Antigen HIV 1/2 AB 01/12/2015 HIV 1 2 Antibody Nonreactive Nonreactive 56, 62 Evaluation Laboratory test 04/03/2014 Levetiracetam 8.5 g/mL 63, 64 finding Oxcarbazepine 23 g/mL 3 - 35 63, 65 Comp Metabolic Panel 04/03/2014 Sodium 138 mmol/L 133-145 63 Potassium 4.0 mmol/L 3.7-5.6 63 Chloride 106 mmol/L 101-111 63 Co2 Carbon Dioxide 27 mmol/L 22-32 63 Anion Gap 5 mmol/L 2-11 63 Glucose 85 mg/dL 70-100 63 Blood Urea Nitrogen 11 mg/dL 6-24 63 Creatinine 0.55 mg/dL 0.51-0.95 63 BUN/Creatinine Ratio 20.0 8-20 63 Calcium 9.3 mg/dL 8.6-10.3 63 Total Protein 6.1 g/dL Low 6.4-8.9 63 Albumin 4.1 g/dL 3.2-5.2 63 Globulin 2.0 g/dL 2-4 63 Albumin/Globulin Ratio 2.1 1-3 63 Total Bilirubin 0.20 mg/dL 0.2-1.0 63 Alkaline Phosphatase 66 U/L 34-104 63 Alt 9 U/L 7-52 63 Ast 13 U/L 13-39 63 Egfr Non- 128.1 >60 63 Egfr 164.7 >60 63, 66 Laboratory test finding 01/28/2014 Inr 0.96 0.85-1.06 [...] Low 11-307 Vitamin B12 319 pg/mL 180-914 67 Laboratory test finding 12/01/2013 Levetiracetam 30.3 g/mL 68 Oxcarbazepine 29 g/mL 3 - 35 69 CBC Auto Diff 10/20/2013 White Blood Count [...] 0.1 Inr/Protime 10/20/2013 Inr 1.09 High 0.85-1.06 70 Laboratory test finding 10/20/2013 Activated Partial 31.6 seconds 24.0- 36.1 71 Thrombo Time Comp Metabolic Panel 10/20/2013 Sodium [...] Egfr Non- 97.0 >60 Egfr 124.7 >60 72 Laboratory test finding 10/20/2013 Lactic Acid 1.0 mmol/L 0.5-1.6 HIV 1 2 AB Self Referred Nonreactive Nonreactive 73 Blood Culture (SEE NOTE) 74 Laboratory test finding 10/20/2013 Serum Negative Negative 75 Blood Culture (SEE NOTE) 76 Laboratory test finding 09/18/2013 Levetiracetam 49.6 g/mL 77 CBC Auto Diff 2013 White Blood Count [...] Egfr Non- 97.0 >60 Egfr 124.7 >60 78 Laboratory test finding 08/12/2013 Serum Negative Negative 79 CBC Auto Diff 08/12/2013 White Blood Count [...] Egfr Non- 73.0 >60 Egfr 93.9 >60 80 Laboratory test finding 08/12/2013 TSH (Thyroid Stimulating 1.87 miu/mL 0.34-5.60 Horm) C Reactive Protein < 0.5 mg/dL Less than 0.5 Creatine Kinase 51 U/L 0-200 Levetiracetam 13.5 g/mL 81 Urinalysis 08/12/2013 Urine Color Yellow Urine Appearance Turbid Urine Specific Lyons 1.024 1.010-1.030 Urine Esterase Negative Negative Urine Nitrate Negative Negative Urine Urobilinogen Negative E.U./dL Negative Urine Protein Negative mg/dL Negative Urine pH 6.5 5-9 Urine Blood Negative Negative Urine Ketones Negative mg/dL Negative Urine Bilirubin Negative Negative Urine Glucose Negative mg/dL Negative Urinalysis 08/06/2013 Urine Color Yellow Urine Appearance Clear Urine Specific Lyons 1.016 1.010-1.030 Urine Esterase Negative Negative Urine Nitrate Negative Negative Urine Urobilinogen Negative E.U./dL Negative Urine Protein Negative mg/dL Negative Urine pH 8.0 5-9 Urine Blood Negative Negative Urine Ketones Negative mg/dL Negative Urine Bilirubin Negative Negative Urine Glucose Negative mg/dL Negative Laboratory test finding 08/06/2013 Levetiracetam 18.2 g/mL 82 Oxcarbazepine 6 g/mL 3 - 35 83 Oncology CBC Auto Diff 07/15/2013 White Blood [...] Laboratory test finding 07/15/2013 Cell Morphology 1+ 84 CBC Auto Diff 06/07/2013 White Blood Count [...] Laboratory test finding 06/07/2013 Levetiracetam 25.5 g/mL 85 1 Because ethnic data is not always readily [...] 15-29 5 Kidney failure <15 (or dialysis) 2 Copy Result to: KEITH SOTOOMIR ([id number]) 3 Copy Result to: KEITH SOTOOMIR ([id number]) 4 Copy Result to: CHARLES RADOMIR ([id number]) 5 Normal Range 180 to 914 Indeterminate Range 145 to 180 Deficient Range <145 6 Copy Result to: CHARLES RADOMIR ([id number]) 7 Copy Result to: CHARLES RADOMIR ([id number]) 8 Copy Result to: CHARLES RADOMIR ([id number]) 9 ADDITIONAL INFORMATION This test was developed and its performance characteristics determined by [facility] in a manner consistent with CLIA requirements. This test has not been cleared or approved by the U.S. Food and Drug Administration. Test Performed by: [facility] - [address] [address] 10 This test was developed and its performance characteristics determined by [facility]. It has not been cleared or approved by the Food and Drug Administration. Test Performed by: [facility]. [address] [place] [id number] 11 REFERENCE VALUE 12.0 - 46.0 ADDITIONAL INFORMATION This test was developed and its performance characteristics determined by [facility] in a manner consistent with CLIA requirements. This test has not been cleared or approved by the U.S. Food and Drug Administration. Test Performed by: [facility] - [facility] [address] [place] [address] 12 ADDITIONAL INFORMATION This test was developed and its performance characteristics determined by [facility] in a manner consistent with CLIA requirements. This test has not been cleared or approved by the U.S. Food and Drug Administration. Test Performed by: [facility] - [address] [address] 13 Because ethnic data is not always readily [...] 15-29 5 Kidney failure <15 (or dialysis) 14 SEE RESULT BELOW Name: SELENA DIANE : [address]: Jackson VALE Acct: [id number] Unit: [id number] AGE: 36 Location: LAB Re07/18/17 SEX: F Status: REG REF SPEC: [id number] TERRENCE: 07/18/[address]: Jackson Louis [facility] REQ: [id number] RECD: 07/18/17 STATUS: ANDERSON AMEZQUITA DR: Madhavi Soto MD PC _ SOURCE: URINE SPDESC: ORDERED: Urine Culture Procedure Result Reported Site Urine Culture Final 07/19/17- 1439 ML No Growth (<1,000 CFU/mL) * ML - MAIN LAB ([facility]) . END OF REPORT * ML=Testing performed at Main Lab DEPARTMENT OF PATHOLOGY, [address] [place] [address] Navneet Drake M.D. Director [facility] # [id number] 15 [facility] Severe Sepsis and Septic Shock [...] 5 Kidney failure <15 (or dialysis) 17 Because ethnic data is not always readily [...] 15-29 5 Kidney failure <15 (or dialysis) 18 [facility] Severe Sepsis and Septic Shock Management Bundle Measure requires all lactic acids initially measuring >2.0 mmol/L be repeated. 19 Because ethnic data is not always readily [...] 15-29 5 Kidney failure <15 (or dialysis) 20 REFERENCE VALUE 12.0 - 46.0 ADDITIONAL INFORMATION This test was developed and its performance characteristics determined by [facility] in a manner consistent with CLIA requirements. This test has not been cleared or approved by the U.S. Food and Drug Administration. Test Performed by: [facility] - [place] [id number] *Ascorbic acid is present which may interfere with detection of blood. 22 Because ethnic data is not always readily [...] 15-29 5 Kidney failure <15 (or dialysis) 23 SEE RESULT BELOW Name: SELENA DIANE : [address]: Jackie Snow MD Acct: [id number] Unit: [id number] AGE: 36 Location: ED Re05/05/17 SEX: F Status: DEP ER SPEC: [id number] TERRENCE: 05/05/[address]: Jackie Snow MD REQ: [id number] RECD: 05/05/17 STATUS: ANDERSON AMEZQUITA DR: Leatha Coles MD _ SOURCE: URINE SPDESC: ORDERED: Urine Culture Procedure Result Reported Site Urine Culture Final 05/06/17- 1626 ML No growth of clinically significant organisms * ML - MAIN LAB ([facility]) . END OF REPORT * ML=Testing performed at Main Lab DEPARTMENT OF PATHOLOGY, [address] [place] [address] Navneet Drake M.D. Director [facility] # [id number] 24 REFERENCE VALUE 12.0 - 46.0 ADDITIONAL INFORMATION This test was developed and its performance characteristics determined by [facility] in a manner consistent with CLIA requirements. This test has not been cleared or approved by the U.S. Food and Drug Administration. Test Performed by: [facility] [place] [address] 25 [facility] Severe Sepsis and Septic Shock Management Bundle Measure requires all lactic acids initially measuring >2.0 mmol/L be repeated. 26 Because ethnic data is not always readily [...] 15-29 5 Kidney failure <15 (or dialysis) 27 REFERENCE VALUE 12.0 - 46.0 ADDITIONAL INFORMATION This test was developed and its performance characteristics determined by [facility] in a manner consistent with CLIA requirements. This test has not been cleared or approved by the U.S. Food and Drug Administration. Test Performed by: [facility] - [facility] [address] [place] [id number] 28 ADDITIONAL INFORMATION This test was developed and its performance characteristics determined by [facility] in a manner consistent with CLIA requirements. This test has not been cleared or approved by the U.S. Food and Drug Administration. Test Performed by: [facility] [employer] [address] [place] [id number] 29 Presumptive Positive Presumptive positive results are unconfirmed. 30 Presumptive Positive Presumptive positive results are unconfirmed. 31 The urine specimen was tested at the listed cutoffs: Drug class test level (ng/mL) Amphetamines 500 Barbiturates 200 Benzodiazepine metabolites 200 Cocaine metabolites 150 Cannabinoids 50 Opiates 300 Pcp 25 Specimen was received without chain of custody. Results should be used for medical purposes only. 32 REFERENCE VALUE 12.0 - 46.0 ADDITIONAL INFORMATION This test was developed and its performance characteristics determined by [facility] in a manner consistent with CLIA requirements. This test has not been cleared or approved by the U.S. Food and Drug Administration. Test Performed by: [facility] [employer] [facility] [employer] [address] [place] [id number] 33 ADDITIONAL INFORMATION This test was developed and its performance characteristics determined by [facility] in a manner consistent with CLIA requirements. This test has not been cleared or approved by the U.S. Food and Drug Administration. Test Performed by: [facility] - [address] [address] 34 [facility] Severe Sepsis and Septic Shock Management Bundle Measure requires all lactic acids initially measuring >2.0 mmol/L be repeated. 35 *Ascorbic acid is present which may interfere with detection of blood. 36 Because ethnic data is not always readily [...] 15-29 5 Kidney failure <15 (or dialysis) 37 SEE RESULT BELOW Name: SELENA DIANE : [address]: Flory Lei MD Acct: [id number] Unit: [id number] AGE: 36 Location: ED Re04/27/17 SEX: F Status: DEP ER SPEC: [id number] TERRENCE: 04/27/[address]: Flory Lei MD REQ: [id number] RECD: 04/27/17 STATUS: ANDERSON AMEZQUITA DR: Leatha Coles MD _ SOURCE: URINE SPDESC: ORDERED: Urine Culture Procedure Result Reported Site Urine Culture Final 04/30/17- 0821 ML Organism 1 ESCHERICHIA COLI [place] Count 25-50,000 (Moderate) CFU/ML 1. ESCHERICHIA COLI [...] antibiotic reporting. * ML - MAIN LAB ([facility]) . END OF REPORT * ML=Testing performed at Main Lab DEPARTMENT OF PATHOLOGY, [address] [place] [address] Navneet Drake M.D. Director [facility] # [id number] 38 Because ethnic data is not always readily [...] 15-29 5 Kidney failure <15 (or dialysis) 39 Acute inflammation: >10.00 40 <5.0 Negative 5.0 - 25.0 Indeterminate (Repeat testing recommended after 72 hours) >25.0 Positive Perimenopausal women can display HCG levels of up to 20 mIU/mL 41 [facility] Severe Sepsis and Septic Shock Management Bundle Measure requires all lactic acids initially measuring >2.0 mmol/L be repeated. 42 REFERENCE VALUE 12.0 - 46.0 ADDITIONAL INFORMATION This test was developed and its performance characteristics determined by [facility] in a manner consistent with CLIA requirements. This test has not been cleared or approved by the U.S. Food and Drug Administration. Test Performed by: [facility] - [address] [address] 43 ADDITIONAL INFORMATION This test was developed and its performance characteristics determined by [facility] in a manner consistent with CLIA requirements. This test has not been cleared or approved by the U.S. Food and Drug Administration. Test Performed by: [facility] - [address] [address] 44 SEE RESULT BELOW Name: SELENA DIANE : [address]: Jae George MD Acct: [id number] Unit: [id number] AGE: 36 Location: ENDO Re03/19/17 SEX: F Status: REG REF SPEC: [id number] TERRENCE: 03/19/17-[address]: Jae George MD REQ: [id number] RECD: 03/19/17 STATUS: ANDERSON [facility] DR: Leatha Soto MD PC _ SOURCE: GAS ANTRUM SPDESC: ORDERED: Clotest Procedure Result Reported Site Clotest Final 03/20/17714 ML Clotest Negative * ML - MAIN LAB ([facility]) . END OF REPORT * ML=Testing performed at Main Lab DEPARTMENT OF PATHOLOGY, [address] [place] [address] Navneet Drake M.D. Director [facility] # [id number] 45 ADDITIONAL INFORMATION This test was developed and its performance characteristics determined by [facility] in a manner consistent with CLIA requirements. This test has not been cleared or approved by the U.S. Food and Drug Administration. Test Performed by: [facility] - [address] [address] Skate Boarder: Matti Gould II, M.D., Ph.D. 46 REFERENCE VALUE 12.0 - 46.0 ADDITIONAL INFORMATION This test was developed and its performance characteristics determined by [facility] in a manner consistent with CLIA requirements. This test has not been cleared or approved by the U.S. Food and Drug Administration. Test Performed by: [facility] [address] Sk[employer]er: Matti Gould II, M.D., Ph.D. 47 REFERENCE VALUE 12.0 - 46.0 Test Performed by: [facility] [place] [address] Skate Boarder: Matti Gould II, M.D., Ph.D. 48 SEE RESULT BELOW Name: SELENA DIANE : [address]: Matti Romero MD Acct: [id number] Unit: [id number] AGE: 34 Location: ED Re07/14/15 SEX: F Status: DEP ER SPEC: [id number] TERRENCE: 07/14/[address] [facility] [address]: Matti Romero MD REQ: [id number] RECD: 07/14/15 STATUS: ANDERSON AMEZQUITA DR: Madhavi Soto MD Lucy Butcher MD _ SOURCE: URINE [facility]: ORDERED: Urine Culture Procedure Result Verified Site Urine Culture Final 07/16/15- 0950 ML Organism 1 ESCHERICHIA COLI [place] Count >100,000 (Many) CFU/ML 1. ESCHERICHIA COLI [...] antibiotic reporting. * ML - MAIN LAB ([facility]) . END OF REPORT * ML=Testing performed at Main Lab DEPARTMENT OF PATHOLOGY, [address] [place] [address] Navneet Drake M.D. Director [facility] # [id number] 49 SEE RESULT BELOW Name: SELENA DIANE : [address]: Matti Romero MD Acct: [id number] Unit: [id number] AGE: 34 Location: ED Re07/10/15 SEX: F Status: REG ER SPEC: [id number] TERRENCE: 07/10/[address] [facility] [address]: Matti Romero MD REQ: [id number] RECD: 07/10/15 STATUS: ANDERSON AMEZQUITA DR: Madhavi Soto MD Lucy Butcher MD _ SOURCE: URINE SPDESC: ORDERED: Urine Culture Procedure Result Verified Site Urine Culture Final 07/12/15- 942 ML Organism 1 ESCHERICHIA COLI [place] Count >100,000 (Many) CFU/ML 1. ESCHERICHIA COLI [...] antibiotic reporting. * ML - MAIN LAB ([facility]) . END OF REPORT * ML=Testing performed at Main Lab DEPARTMENT OF PATHOLOGY, [address] [place] [address] Navneet Drake M.D. Director [facility] # [id number] 50 SEE RESULT BELOW Name: SELENA DIANE : [address]: Matti Romero MD Acct: [id number] Unit: [id number] AGE: 34 Location: ED Re07/10/15 SEX: F Status: REG ER SPEC: [id number] TERRENCE: 07/10/[address] [facility] [address]: Matti Romero MD REQ: [id number] RECD: 07/10/15 STATUS: ANDERSON AMEZQUITA DR: Madhavi Soto MD Lucy Butcher MD _ SOURCE: BLOOD,VENO SPDESC: ORDERED: Blood Cult COMMENTS: Patient is On Antibiotics? NO Procedure Result Verified Site Aerobic Culture Bottle Final 07/15/15- 2124 ML No Growth Day 5 Anaerobic Culture Bottle Final 07/15/15- 2124 ML No Growth Day 5 * ML - MAIN LAB ([facility]) . END OF REPORT * ML=Testing performed at Main Lab DEPARTMENT OF PATHOLOGY, [address] [place] [address] Navneet Drake M.D. Director [facility] # [id number] 51 Acute inflammation: >10.00 52 Because ethnic data is not always readily [...] 15-29 5 Kidney failure <15 (or dialysis) 53 Reference Range and Interpretation: TnI (ng/mL) Interpretation Less Than 0.03 ng/mL Not supportive of diagnosis of CA 0.03 - 0.50 ng/mL Indeterminate: suggest serial studies if clinically indicated. Greater than 0.5 ng/mL Consistent with diagnosis of CA 54 >100 to <200 pg/mL: likely compensated congestive heart failure (CHF) 200 to 400 pg/mL: likely moderate CHF >400 pg/mL: likely moderate to severe CHF 55 Because ethnic data is not always readily [...] 15-29 5 Kidney failure <15 (or dialysis) 56 please also fax results to Dr. Andriy Albrecht [phone] ~~please also fax results to Dr. Andriy Albrecht [phone] please also fax results to Dr. Andriy Albrecht [phone] please also fax results to Dr. Andriy Albrecht please also fax results to Dr. Andriy Albrecht [phone] please also fax results to Dr. Andriy Albrecht [phone] 58 Therapeutic target for the treatment of diabetes Mellitus patients is <7% HBA1C, and in selective patients <6.0%.Please refer to [place] [employer] Diabetic care guidelines for further information. 59 REFERENCE VALUE 12.0 - 46.0 Test Performed by: [place] [id number] Skate Boarder: Matti Gould II, M.D., Ph.D. 60 Test Performed by: [address] [address] Skate Boarder: Matti G. Morice, II, M.D., Ph.D. 61 please also fax results to Dr. Andriy Albrecht [phone] YES 62 It is recognized that currently available assays [...] 95% confidence interval of 99.78 to 99.96%. 63 draw in am, prior to first dose. 64 -- REFERENCE VALUE -- 12.0 - 46.0 Test Performed by: [place] [address] Skate Boarder: Stevo Cuba III, M.D. 65 Test Performed by: [place] [address] Skate Boarder: Stevo Cuba III, M.D. 66 Because ethnic data is not always [...] 5 Kidney failure <15 (or dialysis) 67 Normal Range 180 to 914 Indeterminate Range 145 to 180 Deficient Range <145 68 -- REFERENCE VALUE -- 12.0 - 46.0 Test Performed by: [place] [address] Skate Boarder: Stevo Cuba III, M.D. 69 Test Performed by: [facility] [address] [place] [address] Skate Boarder: Stevo Cuba III, M.D. 70 Please note the change in the INR reference range effective 13. 71 Please note the change in the PTT reference range effective 13. 72 Because ethnic data is not always [...] 5 Kidney failure <15 (or dialysis) 73 It is recognized that currently available assays [...] 95% confidence interval of 99.78 to 99.96%. 74 RUN DATE: 10/25/13 [facility] LAB LIVE PAGE 1 RUN TIME: [address] [place] [address] Specimen Inquiry Name: SELENA DIANE : [address]: Nathen Green Acct: [id number] Unit: [id number] AGE: 33 Location: ED Re10/20/13 SEX: F Status: DEP ER SPEC: [id number] TERRENCE: 10/20/[address] [facility] [address]: Yvette CHOWDHURY REQ: [id number] RECD: 10/20/13 STATUS: ANDERSON AMEZQUITA DR: [facility] Madhavi Soto MD PC Lucy Butcher MD _ SOURCE: BLOOD,VENO SPDESC: ORDERED: Blood Cult Procedure Result Verified Site Aerobic Culture Bottle Final 10/25/13- 1206 ML No Growth Day 5 Anaerobic Culture Bottle Final 10/25/13- 1206 ML No Growth Day 5 END OF REPORT * ML=Testing performed at Main Lab DEPARTMENT OF PATHOLOGY, [facility] [place], [place] [address] Navneet Drake M.D. Director [facility] Permit #[id number] 75 This test detects intact HCG only and is indicated for the early detection of . 76 RUN DATE: 10/25/13 [facility] LAB LIVE PAGE 1 RUN TIME: 1213 [facility] [place], [place] [address] Specimen Inquiry Name: SELENA DIANE Shawna : [address]: Nathen Green Acct: [id number] Unit: [id number] AGE: 33 Location: ED Re10/20/13 SEX: F Status: DEP ER SPEC: [id number] TERRENCE: 10/20/13-[address]: Yvette CHOWDHURY REQ: [id number] RECD: 10/20/13 STATUS: COMP HR DR: [facility] Madhavi Soto MD Lucy Butcher MD _ SOURCE: BLOOD,VENO SPDESC: ORDERED: Blood Cult Procedure Result Verified Site Aerobic Culture Bottle Final 10/25/13- 1213 ML No Growth Day 5 Anaerobic Culture Bottle Final 10/25/13- 1213 ML No Growth Day 5 END OF REPORT * ML=Testing performed at Main Lab DEPARTMENT OF PATHOLOGY, [address] [place] [address] Navneet Drake M.D. Director [facility] Permit #[id number] 77 -- REFERENCE VALUE -- 12.0 - 46.0 Test Performed by: [place] [address] Skate Boarder: Stevo Cuba III, M.D. 78 Because ethnic data is not always readily [...] 15-29 5 Kidney failure <15 (or dialysis) 79 This test detects intact HCG only and is indicated for the early detection of . 80 Because ethnic data is not always readily [...] 15-29 5 Kidney failure <15 (or dialysis) 81 -- REFERENCE VALUE -- 12.0 - 46.0 Test Performed by: [place] [address] Skate Boarder: Stevo Cuba III, M.D. 82 -- REFERENCE VALUE -- 12.0 - 46.0 Test Performed by: [address] [address] Skate Boarder: Stevo Cuba III, M.D. 83 Test Performed by: [place] [address] [address] Skate Boarder: Stevo Cuba III, M.D. 84 @07/15/13 1121: Cell Morphology added. RFLXG=RBC MORPH. 85 -- REFERENCE VALUE -- 12.0 - 46.0 Test Performed by: [address] [address] Skate Boarder: Stevo Cuba III, M.D. Procedures Date CPT Code Description Status 05/09/2018 66805 EEG Monitoring Computer Completed 04/29/2018 86549 Neurostimulator Pulse Generator Analysis Simple Completed W/Reprogramming 04/11/2018 Mammogram Completed 03/05/2018 26754 Neurostimulator Pulse Generator Analysis Simple Completed W/Reprogramming 10/31/2017 32715 Neurostimulator Pulse Generator Analysis Simple Completed W/Reprogramming 10/08/2017 88459 Neurostimulator Pulse Generator Analysis Simple Completed W/Reprogramming 09/18/2017 06082 Neurostimulator Pulse Generator Analysis Simple Completed W/Reprogramming 09/04/2017 93922 Neurostimulator Pulse Generator Analysis Simple Completed W/Reprogramming 08/21/2017 73441 Neurostimulator Pulse Generator Cranial Nerve First Completed Hour 07/31/2017 92724 EEG Monitoring Computer Completed 04/11/2017 04308 EEG Monitoring & Video Recording Completed 04/10/2017 72572 EEG Monitoring & Video Recording Completed 04/09/2017 45823 EEG Monitoring & Video Recording Completed 04/08/2017 23537 EEG Monitoring & Video Recording Completed 04/07/2017 09079 EEG Monitoring & Video Recording Completed 04/06/2017 53069 EEG Monitoring & Video Recording Completed 02/06/2017 11697 EEG Monitoring Computer Completed 11/08/2016 51461 ECHO Transthorasic Realtime 2D W Doppler & Color Flow Completed Hosp Encounters Type Date Location Provider CPT E/M Dx Office Visit 04/29/2018 [facility] [address] G40.219 9:00a Z87.74 F41.9 Z96.89 Office Visit 04/05/2018 2:00p [facility] [address] G40.219 Z96.89 Office Visit 03/05/2018 3:00p [facility] [place] [address] G40.219 Z87.74 F41.9 Office Visit 12/04/2017 2:30p [facility] [place] [address] G40.219 Z87.74 F41.9 R63.4 Office Visit 10/31/2017 9:30a [facility] [address] G40.219 Z87.74 F41.9 Office Visit 10/08/2017 8:30a [facility] [address] G40.219 Z87.74 F41.9 Office Visit 09/18/2017 1:30p [facility] [address] G40.219 G43.109 Z87.74 F41.9 Office Visit 09/04/2017 8:30a [facility] [address] H53.34 G40.219 Office Visit 08/21/2017 8:30a [facility] [address] G40.219 R11.0 Z87.74 F41.9 Office Visit 07/24/2017 11:00a [facility] [place] [address] G40.219 Z87.74 F41.9 Z79.899 Office Visit 06/25/2017 9:00a [facility] [address] G40.219 Z87.74 Z79.899 F41.9 Office Visit 05/21/2017 2:00p [facility] [place] [address] G40.219 Services Of [employer] 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 Z87.74 Z79.899 F41.9 Office Visit 05/01/2017 12:00p [facility] [place] [address] G40.219 Services Of [employer] Techn[employer] Z87.74 Z79.899 F41.9 Office Visit 04/12/2017 11:16a [facility] [place] [address] G40.219 Office Visit 04/11/2017 11:16a [facility] [place] [address] G40.219 Office Visit 04/10/2017 11:15a [facility] [place] [address] G40.219 Office Visit 04/09/2017 11:15a [facility] [place] [address] G40.219 Office Visit 04/08/2017 11:14a [facility] [place] [address] G40.219 Office Visit 04/07/2017 11:14a [facility] [place] [address] G40.219 Office Visit 04/06/2017 11:11a [facility] [address] G40.219 Z87.74 Office Visit 03/28/2017 12:45p [facility] [place] [address] G40.219 [facility] [employer] Techn[employer] F41.9 Office Visit 02/27/2017 10:30a [facility] [place] [address] G40.219 Services Of [employer] Technician F41.9 Z87.74 Office Visit 01/22/2017 4:00p [facility] [place] [address] G40.219 [facility] [employer] Techn[employer] F41.9 Z87.74 Office Visit 10/31/2016 3:45p [facility] Ezequiel Henderson [address] G40.219 Services [facility] [employer] M.DJose Office Visit 10/25/2016 9:30a [facility] 114[address] R56.9 Assoc, Hospitalists LUCIANA Chairez Q27.30 Office Visit 10/24/2016 1:12p [facility] Ezequiel Malik [address]6825 G40.219 Chele Henderson Office Visit 10/23/2016 1:08p [facility] Ezequiel Malik 11551 G40.219 Chele Henderson Office Visit 10/23/2016 9:29a [facility],[place], [address] Q27.30 Hospitalists N.PJose G40.909 Office Visit 08/04/2016 10:30a [facility] [place] [address] G40.219 [facility] [employer] Techn[employer] Z79.899 R51 Office Visit 04/10/2016 2:30p [facility] [place] [address] G40.219 [facility] [employer] Z79.899 Office Visit 01/10/2016 10:30a [facility] [place] [address] G40.219 Services Of [employer] Z79.899 Office Visit 11/01/2015 11:30a [facility] Lucy Butcher M.D. 78869 G40.211 [facility] [employer] Office Visit 11/25/2014 11:15a [facility] Lucy Butcher M.D. 34359 345.41 Services [facility] [employer] V22.2 784.0 Office Visit 04/02/2014 3:45p [facility] Lucy Butcher M.D. 51098 345.41 Services Of [employer] 784.0 Office Visit 12/15/2013 1:45p [facility] Lucy Butcher M.D. 16665 345.11 Services Of [employer] V15.29 Office Visit 10/13/2013 11:15a [facility] Lucy Butcher M.D. 93990 345.91 Services Of [facility] Office Visit 08/01/2013 2:00p [facility] Lucy Butcher M.D. 18557 345.91 Services Of [employer] Office Visit 04/23/2013 2:00p [facility] Lucy Butcher M.D. 30638 345.90 Services Of [employer] Office Visit 12/25/2012 2:15p [facility] Lucy Butcher M.D. 74859 345.41 Services Of [facility] V22.2 Office Visit 08/21/2012 4:00p [facility] Lucy Butcher M.D. 88245 345.91 Services Of [facility] Plan of Care Future Appointment(s):09/20/2018 1:45 pm - Nathen Ortega M.D. at [facility]08/14/2018 - Ezequiel Henderson M.D.G40.219 Local-rel symptc epi w cmplx part seiz, ntrct, w/o stat epiNew Medication:Divalproex Sodium ER 250 mgR63.4 Abnormal weight lossE03.9 Hypothyroidism, unspecifiedRecommendations:increase your levothyroxine to 50 ug per day
--- OUTSIDE RECORDS SUMMARY | 2018-08-27 01:13 | XMS REPORT ---
:1980 External Reference #:[id number] Author Organization [facility] Address [address] [place] [address] [place] [address] Phone [phone] Care Team Providers Name Role Phone Madhavi Mayorga MD Primary Care Physician Unavailable Payers Type Date Identification Numbers Payment Provider Subscriber Commercial Effective: Policy Number: [id number] [employer] Selena Diane 2016 Medicaid PayID: [id number] [address] [place] [id number] Commercial Expires: 2017 Policy Number: [employer] Selena Matos [id number] [employer] PayID: [id number] [address] [place] [address] Problems Date Description Provider Status Onset: 11/25/2014 [...] Strength Qnty SIG Indications Ordering Provider Divalproex 07/[address] 250mg 120ta 1 po at 6 G40.219 Ezequiel Christie bs PM for 1 Beatriz, wk then 1 M.D. at 6 Am and 6 PM for 1 wk then 2 at 6 Am and 6 PM Vitamin B-12 07/31 Active Tablets 500mcg 90tab 1 by Ezequiel Malik /2017 s mouth Gissell Henderson every day M.D. Zofran 07/24 Active Tablets 8mg 9tabs 1/2-one Leatha Coles by mouth every 8 hours as needed for nausea Clonazepam 06/09 Active Tablets 0.5mg 5tabs 1 tablet by mouth Guadalupe, at M.D. bedtime x 3 days, then use remaining tablets as needed maximum 1 tablet at bedtime. Aptiom 04/05 Active Tablets 800mg 60tab take one G40.219 kush s tab by Chele Ortega mouth twice daily Sertraline HCL 12/07 Active Tablets 50mg 60tab 2 tablets F41.9 Leatha Coles s by mouth every day Magnesium Oxide 09/18 Active Tablets 400mg 30tab 1 by G43.109 Leatha Coles s mouth every day Naproxen 09/18 Active Tablets 500mg 60tab 1 up to G43.109 Leatha Coles s twice a MD day as needed for migraine. Avoid using more than 2 to 3 times per week Briviact 07/28 Active Tablets 100mg 75tab 1 by Ezequiel Malik /2016 s mouth Beatriz, every M.D. morning and 1 1/2 every night at bedtime Acetaminophen 00/00 Active Tablets 325mg 120ta take 2 / bs tabs prn Vitamin D 0000 Active Tablets 2000Units 1 in Unknown (Cholecalcifero /0000 am,1000 l) units at night Potassium Active Tablets ER 10Meq take 1 Unknown Chloride ER / tablet by mouth once daily Ferrous Sulfate Active Tablets 325(65Fe) 1 tab po Unknown /0000 mg qd Levothyroxine Active Tablets 25mcg 1 by Unknown Sodium /0000 mouth every day Klonopin 02/11 Hx Tablets [...] 04/23 Hx Tablets 0.5mg 7tabs 1/2 tab Christoph Dispers po bid Chele Ortega - 12/03 Citalopram 04/23 Hx Tablets 20mg 60tab 2 by F41.9 Erich Villarmide s mouth MD - daily in 05/20 morning Onfi 04/12 Hx Tablets 10mg 4tabs 1/2 tab Leatha Coles po qhs MD - 03/26 Lorazepam 02/13 Hx Tablets 0.5mg 30tab 1 tablet Leatha Coles s twice a MD - day as 05/21 needed for aura Fycompa 02/09 Hx Tablets 2mg 120ta 1 tablet eLatha Coles bs at MD - bedtime 04/19 x1 week then 2 tablets at bedtime x1 week then 3 tablets at bedtime [id number] then 4 tablets at bedtime Citalopram 01/22 Hx Tablets 10mg 60tab take 1 by F41.9 Winston Villar s mouth MD - once 04/23 daily for 1 week then 2 by mouth once daily Phenytoin 10/09 Hx Capsules 100mg 90cap 3 cap by Mayte Christie s mouth Maddy, - every M.D. 10/30 night Aptiom 01/10 Hx Tablets 400mg 60tab 1 in am G40.211 Leatha Coles s MD - 12/20 Folic Acid 11/25 Hx Tablets 1mg 30tab 1 by V22.2 Lucy s mouth Guadalupe, - every day M.D. 08/03 Oxcarbazepine 08/01 Hx Suspension 300mg/5ML 750ml 5ml by Leatha Coles mouth MD - twice 10/31 daily Folic Acid 09/02 Hx Tablets 1mg 60tab take two Lucy s by mouth Guadalupe, - each day M.D. 10/13 Levetiracetam 08/21 Hx Solution 100mg/ml 1200u take 4 Leatha Coles nits teaspoons MD - in the Am 05/28 and teaspoons in the PM, shake before using Flintstones Hx Chewtabs 60mg Unknown Complete /0000 - 10/13 Vitamin B12 Hx Tablets ER 1000mcg 30tab 1 po qd Unknown /0000 s - 10/13 Lorazepam Hx Tablets 1mg 30tab 1 by Leatha Coles, /0000 s mouth MD - three 02/13 times day as needed for aura Nitrofurantoin Hx Capsules 100mg 14cap 1 cap po Unknown Monohydrate /0000 s bid x 7 - days 12/15 Doxycycline Hx Capsules 100mg Stevanovic, Hyclate /0000 MD Madhavi - 03/19 Motrin [...] 08/03 Hydrocodone-Jefry Hx Tablets 5-325mg Romero, taminophen /0000 Marline Lopez MD 12/21 Ra Hx Tablets ER take 1 Unknown B-Complex/Vitam / tablet in C CR - once 07/30 Oxcarbazepine Hx Tablets 300mg 90tab 1 tab Leatha Coles, /0000 s twice a MD - day 06/19 Penicillin V Hx Tablets 500mg 4x a day Unknown Potassium /0000 till out - 09/07 Clindamycin HCL Hx Capsules 150mg one every Unknown /0000 6 hours - 08/20 Hydrocodone-Jefry Hx Tablets 5-325mg 1 tab by Unknown taminophen /0000 mouth - every 4- 09/07 6 as needed pain Hydrocortisone Hx Cream 1% use Unknown /0000 sparingly - twice a 09/07 day x weeks Dicyclomine HCL Hx Capsules 10mg one Unknown /0000 capsule - tid 07/30 Skin Hair Nails Hx 1 tab a Unknown / day - 07/30 Vitamin B-12 Hx Tablets Sub 1 by Ezequiel S. /0000 mouth Beatriz, - every day M.D. 07/31 Vital Signs Date Vital Result Comment 07/31/2018 Height 59 inches 4'11" Weight 80.00 [...] Color Yellow Urine Appearance Cloudy Urine Specific [place] 1.015 1.010-1.030 Urine pH 5.0 5-9 Urine [...] Egfr Non- 113.8 >60 Egfr 146.3 >60 3 Laboratory test finding 07/18/2017 Phosphorus 3.3 mg/dL 2.5-5.0 Magnesium 2.1 mg/dL 1.9-2.7 Thyroxine 4.33 g/mL Low 6.09-12.23 TSH (Thyroid Stim Horm) 3.84 mcIU/mL 0.34-5.60 Prolactin 9.4 ng/mL 1.0-25.0 Vitamin D Total 25(Oh) 55.0 ng/mL High 30-50 Urine Culture And 07/18/2017 Urine Culture SEE RESULT BELOW 4 Sensitivities Laboratory test finding 07/18/2017 Levetiracetam (Keppra) <2.0 g/mL 5 Trileptal (Oxcarbazepine) 35 g/mL 3 - 35 6 CBC Auto Diff 06/26/2017 White Blood Count [...] Color Yellow Urine Appearance Cloudy Urine Specific [place] 1.013 1.010-1.030 Urine pH 7.0 5-9 Urine [...] (Oxcarbazepine) 28 g/mL 3 - 35 20 Urine Drug SCR ED & 04/27/2017 Amphetamine Ur Screen None Detected None Detect Pain Clinic Barbiturates Urine Screen None Detected None Detect Benzodiazepine Urine Screen Presumptive Posi <SEE NOTE> None Detect 21 Urine Cannabinoids Screen None Detected None Detect Urine Cocaine Screen None Detected None Detect Urine Opiates Screen Presumptive Posi <SEE NOTE> None Detect 22 Urine Phencyclidine Screen None Detected None Detect 23 Inr/Protime 04/27/2017 Inr 0.93 0.89-1.11 Laboratory test [...] finding 04/27/2017 Lactic Acid 0.6 mmol/L 0.5-2.0 24 Urinalysis Profile 04/27/2017 Urine Color Yellow Urine Appearance Cloudy Urine Specific [place] 1.018 1.010-1.030 Urine pH 7.0 5-9 Urine Urobilinogen Negative Negative Urine Ketones Negative Negative Urine Protein Negative Negative Urine Leukocytes Trace Negative Urine Blood Negative Negative * * Negative 25 Urine Nitrite Negative Negative Urine Bilirubin Negative [...] Egfr Non- 118.3 >60 Egfr 152.1 >60 26 Laboratory test finding 04/27/2017 Magnesium 2.1 mg/dL 1.9-2.7 Creatine Kinase(CK) 51 U/L 10-223 Alcohol < 10 mg/dL <10 Urine Culture And 04/27/2017 Urine Culture SEE RESULT BELOW 27 Sensitivities Laboratory test finding 04/27/2017 Levetiracetam (Keppra) 46.6 g/mL 28 Trileptal (Oxcarbazepine) 37 g/mL 3 - 35 29 Comp Metabolic Panel 04/21/2017 Sodium 137 [...] Color Yellow Urine Appearance Cloudy Urine Specific [place] 1.032 High 1.010-1.030 Urine pH 5.0 5-9 [...] (Oxcarbazepine) 28 g/mL 3 - 35 35 Laboratory test finding 03/19/2017 Clotest SEE RESULT BELOW 36 Laboratory test finding 11/23/2016 Trileptal 11 g/mL 3 - 35 37 (Oxcarbazepine) Levetiracetam (Keppra) 63.6 g/mL 38 Laboratory test finding 11/24/2015 Levetiracetam (Keppra) 21.7 g/mL 39 Urinalysis Profile 07/14/2015 Urine Color Yellow Urine Appearance Cloudy Urine Specific [place] 1.017 1.010-1.030 Urine pH 6.0 5-9 Urine [...] test 07/14/2015 Urine Culture And SEE RESULT 40 finding Sensitivities BELOW CBC Auto Diff 07/10/2015 White Blood Count [...] Egfr Non- 152.6 >60 Egfr 196.3 >60 41 Laboratory test finding 07/10/2015 C Reactive Protein 106.54 mg/L High < 5.00 42 Inr/Protime 07/10/2015 Inr 0.83 0.78-1.07 Laboratory test finding 07/10/2015 Partial Thrombo Time 28.1 seconds 26.0 -36.3 PTT Urinalysis Profile 07/10/2015 Urine Color Yellow Urine Appearance Cloudy Urine Specific [place] 1.017 1.010-1.030 Urine pH 5.0 5-9 Urine [...] 07/10/2015 Urine Culture And SEE RESULT BELOW 43 Sensitivities Blood Culture SEE RESULT BELOW 44 CBC Auto Diff 06/05/2015 White Blood Count [...] 48, 53 finding Antigen HIV 1/2 AB 01/12/2015 HIV 1 2 Antibody Nonreactive Nonreactive 48, 54 Evaluation Laboratory test 04/03/2014 Levetiracetam 8.5 g/mL 55, 56 finding Oxcarbazepine 23 g/mL 3 - 35 55, [...] Non- 73.0 >60 Egfr 93.9 >60 72 Urinalysis 08/12/2013 Urine Color Yellow Urine Appearance Turbid Urine Specific [place] 1.024 1.010-1.030 Urine Esterase Negative Negative Urine Nitrate Negative Negative Urine Urobilinogen Negative E.U./dL Negative Urine Protein Negative mg/dL Negative Urine pH 6.5 5-9 Urine Blood Negative Negative Urine Ketones Negative mg/dL Negative Urine Bilirubin Negative Negative Urine Glucose Negative mg/dL Negative Laboratory test finding 08/12/2013 TSH (Thyroid Stimulating 1.87 miu/mL 0.34-5.60 Horm) C Reactive Protein < 0.5 mg/dL Less than 0.5 Creatine Kinase 51 U/L 0-200 Levetiracetam 13.5 g/mL 73 Laboratory test finding 08/06/2013 Levetiracetam 18.2 g/mL 74 Oxcarbazepine 6 g/mL 3 - 35 75 Urinalysis 08/06/2013 Urine Color Yellow Urine Appearance Clear Urine Specific [place] 1.016 1.010-1.030 Urine Esterase Negative Negative Urine Nitrate Negative Negative Urine Urobilinogen Negative E.U./dL Negative Urine Protein Negative mg/dL Negative Urine pH 8.0 5-9 Urine Blood Negative Negative Urine Ketones Negative mg/dL Negative Urine Bilirubin Negative Negative Urine Glucose Negative mg/dL Negative Laboratory test finding 07/15/2013 Cell Morphology 1+ 76 Oncology CBC Auto Diff 07/15/2013 White Blood [...] % 0.9 % 0-2 Laboratory test finding 06/07/2013 Levetiracetam 25.5 g/mL 77 Laboratory test finding 06/07/2013 Ferritin < 10 ng/mL Low 11-307 Vitamin B12 508 pg/mL 180-914 Iron & Iron Binding Capacity 06/07/2013 Iron 94 g/dL 28-170 Unsaturated Iron Binding 335 g/dL Total Iron Binding Capacity 429 g/dL 250-450 % Iron Saturation 22 % 15-55 Manual Differential 06/07/2013 Neutrophil % 48 % 38-83 Lymphocytes % 41 % 25-47 Monocytes % 9 % 0-13 Eosinophils % 2 % 0-6 Microcytosis 1+ CBC Auto Diff 06/07/2013 White Blood Count [...] developed and its performance characteristics determined by [facility] in a manner consistent with CLIA requirements. This test has not been cleared or approved by the U.S. Food and Drug Administration. Test Performed by: [facility] [address] [place] [address] 2 This test was developed and its performance characteristics determined by [employer]. It has not been cleared or approved by the Food and Drug Administration. Test Performed by: [employer]. [address] [place] [address] 3 Because ethnic data is not always readily [...] 15-29 5 Kidney failure <15 (or dialysis) 4 SEE RESULT BELOW Name: SELENA DIANE Shawna : [address]: Jackson VALE Acct: [id number] Unit: [id number] AGE: 36 Location: LAB Re07/18/17 SEX: F Status: REG REF SPEC: [id number] TERRENCE: 07/18/[address]: Jackson Louis [facility] REQ: [id number] RECD: 07/18/17 STATUS: ANDERSON AMEZQUITA DR: Madhavi Mayorga MD PC _ SOURCE: URINE SPDESC: ORDERED: Urine Culture Procedure Result Reported Site Urine Culture Final 07/19/17- 1439 ML No Growth (<1,000 CFU/mL) * ML - MAIN LAB ([facility]) . END OF REPORT * ML=Testing performed at Main Lab DEPARTMENT OF PATHOLOGY, [address] [place] [address] Navneet Drake M.D. Director [facility] # [id number] 5 REFERENCE VALUE 12.0 - 46.0 ADDITIONAL INFORMATION This test was developed and its performance characteristics determined by [facility] in a manner consistent with CLIA requirements. This test has not been cleared or approved by the U.S. Food and Drug Administration. Test Performed by: [facility] - [address] [address] 6 ADDITIONAL INFORMATION This test was developed and its performance characteristics determined by [facility] in a manner consistent with CLIA requirements. This test has not been cleared or approved by the U.S. Food and Drug Administration. Test Performed by: [facility] [place] [id number] ORS Severe Sepsis and Septic Shock Management Bundle [...] 5 Kidney failure <15 (or dialysis) 10 [facility] Severe Sepsis and Septic Shock Management [...] developed and its performance characteristics determined by [facility] in a manner consistent with CLIA requirements. This test has not been cleared or approved by the U.S. Food and Drug Administration. Test Performed by: [facility] - [address] [address] *Ascorbic acid is present which may [...] [address]: Jackie Snow MD Acct: [id number] Unit: [id number] AGE: 36 Location: ED Re05/05/17 SEX: F Status: DEP ER SPEC: [id number] TERRENCE: 05/05/[address] [facility] [address]: Jackie Snow MD REQ: [id number] RECD: 05/05/17 STATUS: ANDERSON AMEZQUITA DR: Leatha Coles MD _ SOURCE: URINE [facility]: ORDERED: Urine Culture Procedure Result Reported Site Urine Culture Final 05/06/17- 1626 ML No growth of clinically significant organisms * ML - MAIN LAB ([facility]) . END OF REPORT * ML=Testing performed at Main Lab DEPARTMENT OF PATHOLOGY, [address] [place] [address] Navneet Drake M.D. Director [facility] # [id number] 16 REFERENCE VALUE 12.0 - 46.0 ADDITIONAL INFORMATION This test was developed and its performance characteristics determined by [facility] in a manner consistent with CLIA requirements. This test has not been cleared or approved by the U.S. Food and Drug Administration. Test Performed by: [facility] - [address] [address] 17 [facility] Severe Sepsis and Septic Shock Management [...] developed and its performance characteristics determined by [facility] in a manner consistent with CLIA requirements. This test has not been cleared or approved by the U.S. Food and Drug Administration. Test Performed by: [facility] - [address] [address] ADDITIONAL INFORMATION This test was developed and its performance characteristics determined by [facility] in a manner consistent with CLIA requirements. This test has not been cleared or approved by the U.S. Food and Drug Administration. Test Performed by: [facility] - [address] [address] 21 Presumptive Positive Presumptive positive results are unconfirmed. 22 Presumptive Positive Presumptive positive results are unconfirmed. 23 The urine specimen was tested at the listed cutoffs: Drug class test level (ng/mL) Amphetamines 500 Barbiturates 200 Benzodiazepine metabolites 200 Cocaine metabolites 150 Cannabinoids 50 Opiates 300 Pcp 25 Specimen was received without chain of custody. Results should be used for medical purposes only. 24 [facility] Severe Sepsis and Septic Shock Management Bundle Measure requires all lactic acids initially measuring >2.0 mmol/L be repeated. 25 *Ascorbic acid is present which may interfere with detection of blood. 26 Because ethnic data is not always [...] 5 Kidney failure <15 (or dialysis) 27 SEE RESULT BELOW Name: SELENA DIANE : [address]: Flory Lei MD Acct: [id number] Unit: [id number] AGE: 36 Location: ED Re04/27/17 SEX: F Status: DEP ER SPEC: [id number] TERRENCE: 04/27/[address]: Flory Lei MD REQ: [id number] RECD: 04/27/17 STATUS: ANDERSON AMEZQUITA DR: Leatha Coles MD _ SOURCE: URINE SPDESC: ORDERED: Urine Culture Procedure Result Reported Site Urine Culture Final 04/30/17- 820 ML Organism 1 ESCHERICHIA COLI Randolph Count 25-50,000 (Moderate) CFU/ML 1. ESCHERICHIA COLI [...] antibiotic reporting. * ML - MAIN LAB ([facility]) . END OF REPORT * ML=Testing performed at Main Lab DEPARTMENT OF PATHOLOGY, [address] [place] [address] Navneet Drake M.D. Director [facility] # [id number] 28 REFERENCE VALUE 12.0 - 46.0 ADDITIONAL INFORMATION This test was developed and its performance characteristics determined by [facility] in a manner consistent with CLIA requirements. This test has not been cleared or approved by the U.S. Food and Drug Administration. Test Performed by: [facility] - [address] [address] ADDITIONAL INFORMATION This test was developed and its performance characteristics determined by [facility] in a manner consistent with CLIA requirements. This test has not been cleared or approved by the U.S. Food and Drug Administration. Test Performed by: [facility] - [address] [address] 30 Because ethnic data is not always [...] levels of up to 20 mIU/mL 33 [facility] Severe Sepsis and Septic Shock Management Bundle Measure requires all lactic acids initially measuring >2.0 mmol/L be repeated. 34 REFERENCE VALUE 12.0 - 46.0 ADDITIONAL INFORMATION This test was developed and its performance characteristics determined by [facility] in a manner consistent with CLIA requirements. This test has not been cleared or approved by the U.S. Food and Drug Administration. Test Performed by: [facility] - [address] [address] ADDITIONAL INFORMATION This test was developed and its performance characteristics determined by [facility] in a manner consistent with CLIA requirements. This test has not been cleared or approved by the U.S. Food and Drug Administration. Test Performed by: [facility] - [address] [address] 36 SEE RESULT BELOW Name: SELENA DIANE Shawna : [address]: Jae George MD Acct: [id number] Unit: [id number] AGE: 36 Location: ENDO Re03/19/17 SEX: F Status: REG REF SPEC: [id number] TERRENCE: 03/19/17-[address] [facility] [address]: Jae George MD REQ: [id number] RECD: 03/19/17 STATUS: ANDERSON AMEZQUITA DR: Leatha Mayorga MD PC _ SOURCE: GAS ANTRUM SPDESC: ORDERED: Clotest Procedure Result Reported Site Clotest Final 03/20/17- 714 ML Clotest Negative * ML - [facility] ([facility]) . END OF REPORT * ML=Testing performed at Main Lab DEPARTMENT OF PATHOLOGY, [address] [place] [address] Navneet Drake M.D. Director [facility] # [id number] 37 ADDITIONAL INFORMATION This test was developed and its performance characteristics determined by [facility] in a manner consistent with CLIA requirements. This test has not been cleared or approved by the U.S. Food and Drug Administration. Test Performed by: [facility] - [place] [address] [employer] Operator: Matti Gould II, M.D., Ph.D. 38 REFERENCE VALUE 12.0 - 46.0 ADDITIONAL INFORMATION This test was developed and its performance characteristics determined by [facility] in a manner consistent with CLIA requirements. This test has not been cleared or approved by the U.S. Food and Drug Administration. Test Performed by: [facility] - [address] [address] Glass Lathe Operator: Matti Gould II, M.D., Ph.D. 39 REFERENCE VALUE 12.0 - 46.0 Test Performed by: [address] [address] Glass Lathe Operator: Matti Gould II, M.D., Ph.D. 40 SEE RESULT BELOW Name: ROXI,SELENA Shawna : [address]: Matti Romero MD Acct: [id number] Unit: [id number] AGE: 34 Location: ED Re07/14/15 SEX: F Status: DEP ER SPEC: [id number] TERRENCE: 07/14/15-[address] [facility] [address]: Matti Romero MD REQ: [id number] RECD: 07/14/15 STATUS: ANDERSON AMEZQUITA DR: Madhavi Mayorga MD Lucy Butcher MD _ SOURCE: URINE SPDESC: ORDERED: Urine Culture Procedure Result Verified Site Urine Culture Final 07/16/15- 0950 ML Organism 1 ESCHERICHIA COLI [place] Count >100,000 (Many) CFU/ML 1. ESCHERICHIA COLI [...] antibiotic reporting. * ML - MAIN LAB ([facility]) . END OF REPORT * ML=Testing performed at Main Lab DEPARTMENT OF PATHOLOGY, [address] [place] [address] Navneet Drake M.D. Director [facility] # [id number] 41 Because ethnic data is not always readily [...] 15-29 5 Kidney failure <15 (or dialysis) 42 Acute inflammation: >10.00 43 SEE RESULT BELOW Name: ROXI,SELENA Shawna : [address]: Matti Romero MD Acct: [id number] Unit: [id number] AGE: 34 Location: ED Re07/10/15 SEX: F Status: REG ER SPEC: [id number] TERRENCE: 07/10/[address] [facility] [address]: Matti Romero MD REQ: [id number] RECD: 07/10/15 STATUS: ANDERSON AMEZQUITA DR: Madhavi Mayorga MD Lucy Butcher MD _ SOURCE: URINE SPDESC: ORDERED: Urine Culture Procedure Result Verified Site Urine Culture Final 07/12/15- 942 ML Organism 1 ESCHERICHIA COLI [place] Count >100,000 (Many) CFU/ML 1. ESCHERICHIA COLI [...] antibiotic reporting. * ML - MAIN LAB ([facility]) . END OF REPORT * ML=Testing performed at Main Lab DEPARTMENT OF PATHOLOGY, [address] [place] [address] Navneet Drake M.D. Director [facility] # [id number] 44 SEE RESULT BELOW Name: SELENA DIANE : [address]: Matti Romero MD Acct: [id number] Unit: [id number] AGE: 34 Location: ED Re07/10/15 SEX: F Status: REG ER SPEC: [id number] TERRENCE: 07/10/[address] [facility] [address]: Matti Romero MD REQ: [id number] RECD: 07/10/15 STATUS: ANDERSON AMEZQUITA DR: Madhavi Mayorga MD Lucy Butcher MD _ SOURCE: BLOOD,VENO SPDESC: ORDERED: Blood Cult COMMENTS: Patient is On Antibiotics? NO Procedure Result Verified Site Aerobic Culture Bottle Final 07/15/15- 2124 ML No Growth Day 5 Anaerobic Culture Bottle Final 07/15/15- 2124 ML No Growth Day 5 * ML - MAIN LAB ([facility]) . END OF REPORT * ML=Testing performed at Main Lab DEPARTMENT OF PATHOLOGY, [address] [place] [address] Navneet Drake M.D. Director [facility] # [id number] 45 Because ethnic data is not always [...] 0.03 ng/mL Not supportive of diagnosis of [place] 0.03 - 0.50 ng/mL Indeterminate: suggest serial studies if clinically indicated. Greater than 0.5 ng/mL Consistent with diagnosis of [place] 47 >100 to <200 pg/mL: likely compensated congestive heart failure (CHF) 200 to 400 pg/mL: likely moderate CHF >400 pg/mL: likely moderate to severe CHF 48 please also fax results to Dr. Andriy Albrecht [phone] ~~please also fax results to Dr. Andriy Albrecht [phone] please also fax results to Dr. Andriy Albrecht [phone] please also fax results to Dr. Andriy Albrecht please also fax results to Dr. Andriy Albrecht [phone] please also fax results to Dr. Andriy Albrecht [phone] 50 Therapeutic target for the treatment of diabetes Mellitus patients is <7% HBA1C, and in selective patients <6.0%.Please refer to [place] [employer] Diabetic care guidelines for further information. 51 REFERENCE VALUE 12.0 - 46.0 Test Performed by: [place] [address] Glass Lathe Operator: Matti Gould II, M.D., Ph.D. 52 Test Performed by: [place] [address] Glass Lathe Operator: Matti Gould II, M.D., Ph.D. 53 please also fax results to Dr. Andriy Albrecht [phone] YES 54 It is recognized that currently [...] -- 12.0 - 46.0 Test Performed by: [address] [address] Glass Lathe Operator: Stevo Cuba III, M.D. 57 Test Performed by: [place] [address] Glass Lathe Operator: Stevo Cuba III, M.D. 58 Because ethnic [...] -- 12.0 - 46.0 Test Performed by: [place] [address] Glass Lathe Operator: Stevo Cuba III, M.D. 61 Test Performed by: [place] [address] Glass Lathe Operator: Stevo Cuba III, M.D. 62 This test detects intact HCG only and is indicated for the early detection of . 63 RUN DATE: 10/25/13 [facility] LAB LIVE PAGE 1 RUN TIME: [address] [place] [address] Specimen Inquiry Name: SELENA DIANE : [address]: Nathen Green Acct: [id number] Unit: [id number] AGE: 33 Location: ED Re10/20/13 SEX: F Status: DEP ER SPEC: [id number] TERRENCE: 10/20/[address]: Yvette CHOWDHURY REQ: [id number] RECD: 10/20/13 STATUS: ANDERSON AMEZQUITA DR: [facility] Madhavi Mayorga MD PC Lucy Butcher MD _ SOURCE: BLOOD,VENO SPDESC: ORDERED: Blood Cult Procedure Result Verified Site Aerobic Culture Bottle Final 10/25/13- 1213 ML No Growth Day 5 Anaerobic Culture Bottle Final 10/25/13- 1213 ML No Growth Day 5 END OF REPORT * ML=Testing performed at Main Lab DEPARTMENT OF PATHOLOGY, [address] [place] [address] Navneet Drake M.D. Director [facility] Permit #[id number] Please note the change in the [...] in the low risk population was 99.90% (6094/6061) with a 95% confidence interval of 99.78 to 99.96%. 68 RUN DATE: 10/25/13 [facility] LAB LIVE PAGE 1 RUN TIME: 1206 [address] [facility], [place], [place] [address] Specimen Inquiry Name: SELENA DIANE : [address]: Nathen Green Acct: [id number] Unit: [id number] AGE: 33 Location: ED Re10/20/13 SEX: F Status: DEP ER SPEC: [id number] TERRENCE: 10/20/13-[address] [facility] [address]: Yvette CHOWDHURY REQ: [id number] RECD: 10/20/13 STATUS: ANDERSON AMEZQUITA DR: [facility] Madhavi Mayorga MD Lucy Butcher MD _ SOURCE: BLOOD,VENO SPDESC: ORDERED: Blood Cult Procedure Result Verified Site Aerobic Culture Bottle Final 10/25/13- 1206 ML No Growth Day 5 Anaerobic Culture Bottle Final 10/25/13- 1206 ML No Growth Day 5 END OF REPORT * ML=Testing performed at Main Lab DEPARTMENT OF PATHOLOGY, [address] [place] [address] Navneet Drake M.D. Director [facility] Permit #[id number] -- REFERENCE VALUE -- 12.0 - 46.0 Test Performed by: [address] [address] Glass Lathe Operator: Stevo Cuba III, M.D. 70 Because ethnic [...] -- 12.0 - 46.0 Test Performed by: [place] [address] Glass Lathe Operator: Stevo Cuba III, M.D. 74 -- REFERENCE VALUE -- 12.0 - 46.0 Test Performed by: [place] [address] Glass Lathe Operator: Stevo Cuba III, M.D. 75 Test Performed by: [place] [address] Glass Lathe Operator: Stevo Cuba III, M.D. 76 @07/15/13 1121: Cell Morphology added. RFLXG=RBC MORPH. 77 -- REFERENCE VALUE -- 12.0 - 46.0 Test Performed by: [place] [address] Glass Lathe Operator: Stevo Cuba III, M.D. Procedures Date CPT Code Description Status 05/09/2018 27982 EEG Monitoring Computer Completed 04/29/2018 04356 Neurostimulator Pulse Generator Analysis Simple Completed W/Reprogramming 04/11/2018 Mammogram Completed 03/05/2018 93804 Neurostimulator Pulse Generator Analysis Simple Completed W/Reprogramming 10/31/2017 36222 Neurostimulator Pulse Generator Analysis Simple Completed W/Reprogramming 10/08/2017 09732 Neurostimulator Pulse Generator Analysis Simple Completed W/Reprogramming 09/18/2017 04521 Neurostimulator Pulse Generator Analysis Simple Completed W/Reprogramming 09/04/2017 11518 Neurostimulator Pulse Generator Analysis Simple Completed W/Reprogramming 08/21/2017 45131 Neurostimulator Pulse Generator Cranial Nerve First Completed Hour 07/31/2017 68106 EEG Monitoring Computer Completed 04/11/2017 89577 EEG Monitoring & Video Recording Completed 04/10/2017 16040 EEG Monitoring & Video Recording Completed 04/09/2017 14728 EEG Monitoring & Video Recording Completed 04/08/2017 86446 EEG Monitoring & Video Recording Completed 04/07/2017 75241 EEG Monitoring & Video Recording Completed 04/06/2017 61616 EEG Monitoring & Video Recording Completed 02/06/2017 70716 EEG Monitoring Computer Completed 11/08/2016 36044 ECHO Transthorasic Realtime 2D W Doppler & Color Flow Completed Hosp Encounters Type Date Location Provider CPT E/M Dx Office Visit 04/29/2018 [facility] [address] G40.219 9:00a Z87.74 F41.9 Z96.89 Office Visit 04/05/2018 2:00p [facility] [place] [address] G40.219 Z96.89 Office Visit 03/05/2018 3:00p [facility] [place] [address] G40.219 Z87.74 F41.9 Office Visit 12/04/2017 2:30p [facility] [place] [address] G40.219 Z87.74 F41.9 R63.4 Office Visit 10/31/2017 9:30a [facility] [place] [address] G40.219 Z87.74 F41.9 Office Visit 10/08/2017 8:30a [facility] [address] G40.219 Z87.74 F41.9 Office Visit 09/18/2017 1:30p [facility] [address] G40.219 G43.109 Z87.74 F41.9 Office Visit 09/04/2017 8:30a [facility] [address] H53.34 G40.219 Office Visit 08/21/2017 8:30a [facility] [address] G40.219 R11.0 Z87.74 F41.9 Office Visit 07/24/2017 11:00a [facility] [address] G40.219 Z87.74 F41.9 Z79.899 Office Visit 06/25/2017 9:00a [facility] [address] G40.219 Z87.74 Z79.899 F41.9 Office Visit 05/21/2017 2:00p [place] [address] G40.219 [facility] [employer] Team Member Z87.74 Z79.899 F41.9 Office Visit 05/01/2017 12:[place] [address] G40.219 [facility] [employer] Team Member Z87.74 Z79.899 F41.9 Office Visit 04/12/2017 11:16a [facility] [place] [address] G40.219 Office Visit 04/11/2017 11:16a [facility] [place] [address] G40.219 Office Visit 04/10/2017 11:15a [facility] [place] [address] G40.219 Office Visit 04/09/2017 11:15a [facility] [place] [address] G40.219 Office Visit 04/08/2017 11:14a [facility] [place] [address] G40.219 Office Visit 04/07/2017 11:14a [facility] [address] G40.219 Office Visit 04/06/2017 11:11a [facility] [place] [address] G40.219 Z87.74 Office Visit 03/28/2017 12:[place] [address] G40.219 [facility] [employer] Team Member F41.9 Office Visit 02/27/2017 10:30[place] [address] G40.219 [facility] [employer] Team Member F41.9 Z87.74 Office Visit 01/22/2017 4:00p [facility] [place] [address] G40.219 [facility] [employer] Team Member F41.9 Z87.74 Office Visit 10/31/2016 3:45p [facility] Ezequiel Henderson, 49124 G40.219 [facility] [employer] Team Member M.D. Office Visit 10/25/2016 9:30a [facility] 50994 R56.9 Assoc, Hospitalists LUCIANA Chairez Q27.30 Office Visit 10/24/2016 1:12p [facility] Ezequiel Malik 07326 G40.219 Chele Henderson Office Visit 10/23/2016 1:08p [facility] Ezequiel Malik 97038 G40.219 Chele Henderson Office Visit 10/23/2016 9:29a [facility], Italo Jackson, 63598 Q27.30 Hospitalists N.P. G40.909 Office Visit 08/04/2016 10:30a [facility] [place] [address] G40.219 [facility] [employer] Team Member Z79.899 R51 Office Visit 04/10/2016 2:30p [facility] [place] [address] G40.219 [facility] [employer] Team Member Z79.899 Office Visit 01/10/2016 10:30a [facility] [place] [address] G40.219 [facility] [employer] Team Member Z79.899 Office Visit 11/01/2015 11:30a [facility] Lucy Butcher M.D. 13833 G40.211 [facility] [employer] Team Member Office Visit 11/25/2014 11:15a [facility] Lucy Butcher M.D. 95907 345.41 [facility] [employer] Team Member V22.2 784.0 Office Visit 04/02/2014 3:45p [facility] Lucy Butcher M.D. 35971 345.41 [facility] [employer] Team Member 784.0 Office Visit 12/15/2013 1:45p [facility] Lucy Butcher M.D. 51152 345.11 [facility] [employer] Team Member V15.29 Office Visit 10/13/2013 11:15a [facility] Lucy Butcher M.D. 42456 345.91 [facility] Office Visit 08/01/2013 2:00p [facility] Lucy Butcher M.D. 26452 345.91 [facility] Office Visit 04/23/2013 2:00p [facility] Lucy Butcher M.D. 34527 345.90 [facility] Office Visit 12/25/2012 2:15p [facility] Lucy Butcher M.D. 91715 345.41 [facility] V22.2 Office Visit 08/21/2012 4:00p [facility] Lucy Butcher M.D. 30833 345.91 Services [facility] Plan of Care Future Appointment(s):08/14/2018 11:00 am - Ezequiel Henderson M.D. at [facility] Tcjmew9607/31/2018 - Ezequiel Henderson M.D.G40.219 Local-rel symptc epi w cmplx part seiz, ntrct, w/o stat epiNew Medication:Divalproex Sodium 250 mgFollow up:2 weeks, add onRecommendations:Take your antiepilepsy medicines at 6 AM and 6 PM Get a weekly pill box for all of your rvhuazkmktjI99.74 Personal history of congenital malform of heart and circ sysR63.4 Abnormal weight lossR11.0 GgucqgS76.9 Anxiety disorder, hbghexswkjmC61.899 Other skilled nursing (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
[2018-08-27 01:31] LABS: ABS Basophils 0 10^3/ul (0-0.2); ABS Eosinophils 0.2 10^3/ul (0-0.6); ABS Lymphocytes 2.8 10^3/ul (1.0-4.8); ABS Monocytes 0.8 10^3/ul (0-0.8); ABS Neutrophils 2.9 10^3/ul (1.5-7.7); ABS Nucleated RBC 0 10^3/ul; Eosinophil % 3.5 % (0-6); Hematocrit 38 % (35-47); Hemoglobin 12.8 g/dl (12.0-16.0); Lymphocyte % 40.9 % (25-47); Mean Corpuscular HGB Conc 34 g/dl (31-36); Mean Corpuscular Hemoglobin 30 pg (27-31); Mean Corpuscular Volume 87 fL (80-97); Mean Platelet Volume 7.1 um3 (7.4-10.4); Nucleated Red Blood Cells % 0.1; Platelet Count 245 10^3/ul (150-450); Red Blood Count 4.32 10^6/ul (4.00-5.40); Red Cell Distribution Width 13 % (10.5-15); White Blood Count 6.7 10^3/ul (3.5-10.8)
--- NOTE | 2018-08-27 01:38 | ED ---
Seizure - HPI Summary HPI Summary: 38-year-old female w/ PMH of epilepsy presents with seizures today. She states that she felt a seizure coming on but she dropped a magnet for her device and instead fell backwards and her head struck the posterior aspect on her head board. She denies any vomiting. She admits to some nausea. She denies any headache currently. States she is still experiences an intermittent aura. She states that she is able to stop the aura by using a magnet and distracting herself. She is unsure how long the seizure lasts. She states she had become postictal. She is not currently postictal. She states the seizure happened an hour ago. She states her parents are concerned as she hit her head. She denies any neck pain. She denies any symptoms besides her aura. She has history of AV malformation. she denies skipping any of her meds. a new med was started 3 weeks ago by neurology. states there is nothing different about this seizure compared to previous. no fevers. - History Of Current Complaint Chief Complaint: EDSeizure Time Seen by Provider: 08/27/18 01:12 - Allergies/Home Medications Allergies/Adverse Reactions: Allergies Allergy/AdvReac Type Severity Reaction Status Date / Time bee venom protein (honey bee) Allergy Hives Verified 08/27/18 00:46 cephalexin [From Keflex] Allergy Hives Verified 08/27/18 00:46 morphine Allergy Hives Verified 08/27/18 00:46 mushroom Allergy Hives Verified 08/27/18 00:46 Sulfa (Sulfonamide Allergy Rash Verified 08/27/18 00:46 Antibiotics) enviromental Allergy Eyes Uncoded 08/27/18 00:46 Itchy/Swollen/Red/Watery Home Medications: Home Medications Divalproex Sodium [Depakote] 250 mg PO BID 08/27/18 [History Confirmed 08/27/18] Sertraline* [Zoloft*] 50 mg PO DAILY 08/27/18 [History Confirmed 08/27/18] PMH/Surg Hx/FS Hx/Imm Hx Endocrine/Hematology History: Reports: Hx Thyroid Disease, Hx Anemia - IV iron tx Denies: Hx Anticoagulant Therapy, Hx Diabetes Cardiovascular History: Denies: Hx Congestive Heart Failure, Hx Hypertension, Hx Pacemaker/ICD Comment Only: Other Cardiovascular Problems/Disorders - Arteriovenous malformation - Sx repair in 2008. Right atrial enlargement. 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 RT TEMPORAL LOBE IN 2008 [place] (removed scar tissue). 5 CSECTIONS. VNM simulater.07/2017 Hx Anesthesia Reactions: No - Immunization History Date of Tetanus Vaccine: None Date of Influenza Vaccine: None Infectious Disease History: No Infectious Disease History: Denies: Hx Hepatitis, Hx Human Immunodeficiency Virus (HIV), Traveled Outside the US in Last 30 Days - Family History Known Family History: Positive: Cardiac Disease, Hypertension, Other - cancer Negative: Diabetes - Social History Alcohol Use: None Hx Substance Use: No Substance Use Type: Reports: Marijuana Substance Use Comment - Amount & Last Used: Ativan Hx Tobacco Use: Yes Smoking Status (MU): Former Smoker Have You Smoked in the Last Year: Yes - had of close relative on 2016 so smoked to cope Review of Systems Negative: Fever Negative: Chest Pain Negative: Shortness Of Breath Neurological: Other - seizure All Other Systems Reviewed And Are Negative: Yes Physical Exam Triage Information Reviewed: Yes Vital Signs On Initial Exam: Initial Vitals Temp Pulse Resp BP Pulse Ox 99.1 F 100 16 109/69 98 08/27/18 00:44 08/27/18 00:44 08/27/18 00:44 08/27/18 00:44 08/27/18 00:44 Vital Signs Reviewed: Yes Appearance: Positive: Well-Appearing Skin: Positive: Warm, Dry Head/Face: Positive: Normal Head/Face Inspection, Other - nontender head, no step off, racoon eyes, kendall sign Eyes: Positive: Normal, EOMI, CLAY, Conjunctiva Clear ENT: Positive: Normal ENT inspection, Pharynx normal, TMs normal Respiratory/Lung Sounds: Positive: Clear to Auscultation, Breath Sounds Present Cardiovascular: Positive: Normal, RRR Abdomen Description: Positive: Nontender, Soft Bowel Sounds: Positive: Present Musculoskeletal: Positive: Normal Neurological: Positive: Sensory/Motor Intact, Alert, Oriented to Person Place, Time, CN Intact II-III Psychiatric: Positive: Normal Diagnostics - Vital Signs Vital Signs Temp Pulse Resp BP Pulse Ox 08/27/18 00:44 99.1 F 100 16 109/69 98 - Laboratory Lab Results: Lab Results 08/27/18 Range/Units 01:21 WBC 6.7 (3.5-10.8) 10^3/ul RBC 4.32 (4.00-5.40) 10^6/ul Hgb 12.8 (12.0-16.0) g/dl Hct 38 (35-47) % MCV 87 (80-97) fL MCH 30 (27-31) pg MCHC 34 (31-36) g/dl RDW 13 (10.5-15) % Plt Count 245 (150-450) 10^3/ul MPV 7.1 L (7.4-10.4) um3 Neut % (Auto) 42.9 (38-83) % Lymph % (Auto) 40.9 (25-47) % Guadalupe % (Auto) 12.1 H (0-7) % Eos % (Auto) 3.5 (0-6) % Baso % (Auto) 0.6 (0-2) % Absolute Neuts (auto) 2.9 (1.5-7.7) 10^3/ul Absolute Lymphs (auto) 2.8 (1.0-4.8) 10^3/ul Absolute Monos (auto) 0.8 (0-0.8) 10^3/ul Absolute Eos (auto) 0.2 (0-0.6) 10^3/ul Absolute Basos (auto) 0 (0-0.2) 10^3/ul Absolute Nucleated RBC 0 10^3/ul Nucleated RBC % 0.1 Result Diagrams: 08/27/18 01:21 08/27/18 01:21 Lab Statement: Any lab studies that have been ordered have been reviewed, and results considered in the medical decision making process. Re-Evaluation - Re-Evaluation First Eval Re-Evaluation Time: 02:20 Comment: no seizure like activity Course/Dx - Course Course Of Treatment: 38-year-old female w/ PMH of epilepsy presents with seizures today. She states that she felt a seizure coming on but she dropped a magnet for her device and instead fell backwards and her head struck the posterior aspect on her head board. She denies any vomiting. She admits to some nausea. She denies any headache currently. States she is still experiences an intermittent aura. She states that she is able to stop the aura by using a magnet and distracting herself. She is unsure how long the seizure lasts. She states she had become postictal. She is not currently postictal. She states the seizure happened an hour ago. She states her parents are concerned as she hit her head. She denies any neck pain. She denies any symptoms besides her aura. She has history of AV malformation. she denies skipping any of her meds. a new med was started 3 weeks ago by neurology. states there is nothing different about this seizure compared to previous. no fevers. on exam patient does not appear post itical. normal neuro exam. labs wnl. discussed that observed in ED and no seizure activity so will discharge home. patient understand and agrees with plan. - Diagnoses Differential Diagnosis/HQI/PQRI: Positive: Metabolic Disorder, Known Seizure Disorder Provider Diagnoses: Epilepsy Discharge - Sign-Out/Discharge Documenting (check all that apply): Patient Departure - Discharge Plan Condition: Good Disposition: HOME Patient Education Materials: Epilepsy (ED) Referrals: Madhavi Mayorga MD [Primary Care Provider] - Nadeem Solorio MD [Medical Doctor] - Additional Instructions: call neurology office tomorrow for follow up take Tylenol as needed for pain every 6 hours Return to ED if develop any new or worsening symptoms - Billing Disposition and Condition Condition: GOOD Disposition: Home
[2018-08-27 01:49] LABS: EGFR Non-African American 156.8 (>60)
[2018-08-27] MEDS ORDERED: Ondansetron ODT TAB* 4 MG PO ONE (01:57)
[2018-08-27 02:32] VITALS: BP 104/78
== END 2018-08-27 02:36 | disposition home or self-care (01) ==
LOC: ED 00:42
DX: G40.909 Epilepsy, unspecified, not intractable, without status epilepticus (principal); Z87.891 Personal history of nicotine dependence
CPT/HCPCS: 36415; 80053; 83605; 83735; 85025; 99282

== ENCOUNTER 2018-09-18 08:52 | Emergency (ER) | payer OTHER ==
[2018-09-18] MEDS ORDERED: NS 0.9% 1000 ML* 1,000 ML IV ONE (09:15)
[2018-09-18] MEDS ORDERED: Metoclopramide IV* 5 MG/ML 2 ML VIAL IV ONE (09:15)
--- NOTE | 2018-09-18 09:19 | ED ---
GI/ HPI - HPI Summary HPI Summary: This patient is a 38 year old F brought in by ambulance to ED with a chief complaint of N/V/D since yesterday. The patient rates the pain 0/10 in severity. Symptoms aggravated by nothing. Symptoms alleviated by nothing. Patient reports BHATIA, dizziness, her urine smells like mint, intermittent wheezing , and sore throat (yesterday). Patient denies abdominal pain. She has not been around people that have similar sx or eaten any bad food. She has had her flu shot this year. PMHx of epilepsy, vertigo, hysterectomy, AVM. The patient sees Dr. Henderson for neurology. She hasnt had her period in a while and had 2 seizures last night. - History of Current Complaint Chief Complaint: EDWeakness Time Seen by Provider: 09/18/18 08:54 Stated Complaint: SEIZURES Hx Obtained From: Patient Hx Last Menstrual Period: non Onset/Duration: Started Days Ago - since yesterday, Still Present Timing: Constant, Lasting Days Current Severity: None Pain Intensity: 0 Associated Signs and Symptoms: Positive: Dizziness - BHATIA, urine smells like mint , intermittent wheezing, sore throat (yesterday); denies abdominal pain, Nausea , Vomiting, Diarrhea, Other: - BHATIA, urine smells like mint, intermittent wheezing , sore throat (yesterday); denies abdominal pain - Additional Pertinent History Primary Care Physician: [id number] - Allergy/Home Medications Allergies/Adverse Reactions: Allergies Allergy/AdvReac Type Severity Reaction Status Date / Time bee venom protein (honey bee) Allergy Hives Verified 09/18/18 08:57 cephalexin [From Keflex] Allergy Hives Verified 09/18/18 08:57 morphine Allergy Hives Verified 09/18/18 08:57 mushroom Allergy Hives Verified 09/18/18 08:57 Sulfa (Sulfonamide Allergy Rash Verified 09/18/18 08:57 Antibiotics) enviromental Allergy Eyes Uncoded 09/18/18 08:57 Itchy/Swollen/Red/Watery PMH/Surg Hx/FS Hx/Imm Hx Endocrine/Hematology History: Reports: Hx Thyroid Disease, Hx Anemia - IV iron tx Denies: Hx Anticoagulant Therapy, Hx Diabetes Cardiovascular History: Denies: Hx Congestive Heart Failure, Hx Hypertension, Hx Pacemaker/ICD Comment Only: Other Cardiovascular Problems/Disorders - Arteriovenous malformation - Sx repair in 2008. Right atrial enlargement. 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 RT TEMPORAL LOBE IN 2008 [place] (removed scar tissue). 5 CSECTIONS. VNM simulater.07/2017 Hx Anesthesia Reactions: No - Immunization History Date of Tetanus Vaccine: None Date of Influenza Vaccine: None Infectious Disease History: No Infectious Disease History: Denies: Hx Hepatitis, Hx Human Immunodeficiency Virus (HIV), Traveled Outside the US in Last 30 Days - Family History Known Family History: Positive: Cardiac Disease, Hypertension, Other - cancer; denies AVM in the family Negative: Diabetes - Social History Alcohol Use: None Hx Substance Use: No Substance Use Type: Reports: Marijuana Substance Use Comment - Amount & Last Used: Ativan Hx Tobacco Use: Yes Smoking Status (MU): Former Smoker Have You Smoked in the Last Year: Yes - had of close relative on 2016 so smoked to cope Review of Systems Positive: Sore Throat Positive: Other - intermittent wheezing Positive: Vomiting, Diarrhea, Nausea. Negative: Abdominal Pain Positive: other - urine smells like mint Neurological: Other - dizziness, 2 seizures last night Positive: Headache All Other Systems Reviewed And Are Negative: Yes Physical Exam - Summary Physical Exam Summary: GENERAL: Patient is a well-developed and nourished F who is lying comfortable in the stretcher. Patient is not in any acute respiratory distress. HEAD AND FACE: Normocephalic EYES: PERRLA, EOMI x 2. EARS: Hearing grossly intact. MOUTH: Oropharynx within normal limits. NECK: Supple, trachea is midline, no adenopathy, no JVD, no carotid bruit. CHEST: Symmetric, no tenderness at palpation LUNGS: Clear to auscultation bilaterally. No wheezing or crackles. CVS: Regular rate and rhythm, S1 and S2 present, no murmurs or gallops appreciated. ABDOMEN: Soft, non-tender. Bowel sounds are normal. No abdominal abnormal pulsations. EXTREMITIES: Full ROM in all major joints, no edema, no cyanosis or clubbing. NEURO: Alert and oriented x 3. No acute neurological deficits. Speech is normal and follows commands. SKIN: Dry and warm Triage Information Reviewed: Yes Vital Signs On Initial Exam: Initial Vitals Temp Pulse Resp BP Pulse Ox 98.4 F 84 20 126/67 99 09/18/18 08:55 09/18/18 08:55 09/18/18 08:55 09/18/18 08:55 09/18/18 08:55 Vital Signs Reviewed: Yes Diagnostics - Vital Signs Vital Signs Temp Pulse Resp BP Pulse Ox 09/18/18 08:55 98.4 F 84 20 126/67 99 - Laboratory Result Diagrams: 09/18/18 09:22 09/18/18 09:22 Lab Statement: Any lab studies that have been ordered have been reviewed, and results considered in the medical decision making process. - Radiology CXR Radiology Interpretation Completed By: Radiologist - HYPERINFLATION WHICH CAN BE SEEN WITH COPD OR REACTIVE AIRWAY DISEASE. Dr. Beltre has reviewed this radiology report. GIGU Course/Dx - Course Assessment/Plan: This patient is a 38 year old F brought in by ambulance to ED with a chief complaint of N/V/D since yesterday. In the ED course, the patient was given half a bag of fluids and reglan. CXR reveals HYPERINFLATION WHICH CAN BE SEEN WITH COPD OR REACTIVE AIRWAY DISEASE. This patient wants to be signed out AMA due to a family emergency. - Diagnoses Differential Diagnoses - Female: Other - gastroenteritis Provider Diagnoses: Gastroenteritis Discharge - Sign-Out/Discharge Documenting (check all that apply): Patient Departure - AMA - Discharge Plan Condition: Stable Disposition: AGAINST MEDICAL ADVICE Patient Education Materials: Gastroenteritis (ED) Referrals: Madhavi Mayorga MD [Primary Care Provider] - (Follow up with your primary care physician in 1-3 days.) Additional Instructions: Follow up with your primary care physician in 1-3 days. RETURN TO THE EMERGENCY DEPARTMENT FOR CHANGING OR WORSENING SYMPTOMS. - Billing Disposition and Condition Condition: STABLE Disposition: Against Medical Advice - Attestation Statements Document Initiated by Scribe: Yes Documenting Scribe: Nando Magallanes Provider For Whom Maria De Jesusibe is Documenting (Include Credential): Amy Beltre MD Scribe Attestation: Nando Bolton, scribed for Amy Beltre MD on 09/20/18 at 0352. Scribe Documentation Reviewed: Yes Provider Attestation: The documentation as recorded by the Nando weller accurately reflects the service I personally performed and the decisions made by me, Amy Beltre MD
[2018-09-18 09:34] LABS: ABS Basophils 0 10^3/ul (0-0.2); ABS Eosinophils 0.1 10^3/ul (0-0.6); ABS Lymphocytes 2.6 10^3/ul (1.0-4.8); ABS Monocytes 0.6 10^3/ul (0-0.8); ABS Neutrophils 2.2 10^3/ul (1.5-7.7); ABS Nucleated RBC 0 10^3/ul; Eosinophil % 2.2 % (0-6); Hematocrit 39 % (35-47); Lymphocyte % 45.7 % (25-47); Mean Corpuscular HGB Conc 34 g/dl (31-36); Mean Corpuscular Hemoglobin 30 pg (27-31); Mean Corpuscular Volume 88 fL (80-97); Nucleated Red Blood Cells % 0.1; Platelet Count 267 10^3/ul (150-450); Red Blood Count 4.42 10^6/ul (4.00-5.40); Red Cell Distribution Width 13 % (10.5-15); White Blood Count 5.6 10^3/ul (3.5-10.8)
[2018-09-18 09:53] LABS: EGFR Non-African American 132.7 (>60)
--- NOTE | 2018-09-18 10:10 | RAD ---
HISTORY: cough COMPARISONS: March 15, 2018 VIEWS: 4: Frontal dual-energy and lateral views of the chest. FINDINGS: CARDIOMEDIASTINAL SILHOUETTE: The cardiomediastinal silhouette is normal. GENE: The gene are normal. PLEURA: The costophrenic angles are sharp. No pleural abnormalities are noted. LUNG PARENCHYMA: There is hyperinflation with flattening of the diaphragm and expansion of the retrosternal airspace. ABDOMEN: The upper abdomen is clear. There is no subphrenic gas. BONES AND SOFT TISSUES: No bone or soft tissue abnormalities are noted. OTHER: A vagal nerve stimulator is noted. IMPRESSION: HYPERINFLATION WHICH CAN BE SEEN WITH COPD OR REACTIVE AIRWAY DISEASE.
[2018-09-18 10:17] VITALS: BP 123/67
== END 2018-09-18 10:16 | disposition left against medical advice (07) ==
LOC: ED 08:52
DX: K52.9 Noninfective gastroenteritis and colitis, unspecified (principal); R42 Dizziness and giddiness; J02.9 Acute pharyngitis, unspecified; Z87.891 Personal history of nicotine dependence; R11.2 Nausea with vomiting, unspecified
CPT/HCPCS: 36415; 71046; 80053; 83605; 83690; 84702; 85025; 86141; 96361; 96374; 99283; J2765

== ENCOUNTER → 2018-10-08 00:49 | Emergency (ER) | payer OTHER ==
[~2018-10-08 00:49] MED LIST changes: +Metoclopramide TAB* 10 MG PO ONE; -Ondansetron ODT TAB* 4 MG PO ONE; +Potassium Chlor TAB* 20 MEQ TAB.ER PO ONE
--- OUTSIDE RECORDS SUMMARY | 2018-10-08 01:06 | XMS REPORT ---
:1980 External Reference #:[id number] Author Organization [facility] Address [address] [place] [address] [place] [address] Phone [phone] Care Team Providers Name Role Phone Rocío Soto MD Primary Care Physician Unavailable Payers Type Date Identification Numbers Payment Provider Subscriber Commercial Effective: Policy Number: [id number] [employer] Selena Diane 2016 Medicaid PayID: [id number] [address] [place] [address] Commercial Expires: 2017 Policy Number: [employer] Selena Matos [id number] [employer] PayID: [id number] [address] [place] [address] Problems Date Description Provider Status Onset: 11/25/2014 [...] site Leatha Coles MD Active unspecified Onset: 09/27/2018 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 Active Onset: 12/04/2017 Weight decreased Leatha Coles MD [...] Form Strength Qnty SIG Indications Ordering Provider Pyridoxine HCL 08/19 Active Tablets 50mg 90tab 1 po qd Ezequiel SJose fadi Henderson M.D. Divalproex 08/14 Active Tablets ER 250mg 60tab 1 by G40.219 Ezequiel Malik Sodium 24HR fadi Henderson, every M.D. night at bedtime for 1 week then 2 every night at bedtime Levothyroxine 08/14 Active Tablets 50mcg 30tab 1 po qd Ezequiel SJose fadi Henderson M.D. Aptiom 04/05 Active Tablets 800mg 60tab take one G40.219 s tab by Chele Ortega mouth twice daily Sertraline HCL 12/07 Active Tablets 50mg 60tab 2 tablets F41.9 s by mouth Chele Ortega every day Magnesium Oxide 09/18 Active Tablets 400mg 30tab 1 by G43.109 Ezequiel Malik s mouth Beatriz, every day M.D. Briviact 07/28 Active Tablets 100mg 75tab 1 by Ezequiel Malik s mouth Beatriz, every M.D. morning and 1 1/2 every night at bedtime Acetaminophen 00/00 Active Tablets 325mg 120ta take 2 Unknown /0000 bs tabs prn Potassium 00 Active Tablets ER 10Meq take 1 Unknown [...] Am and 6 PM Vitamin B-12 07/31 Hx Tablets 500mcg 90tab 1 by Ezequiel Malik s mouth Beatriz, Natural - every day M.D. 09/27 Zofran 07/24 Hx Tablets 8mg 9tabs 1/2-one Leatha Coles by mouth MD - every 8 09/27 hours needed for nausea Clonazepam 06/09 Hx Tablets 0.5mg 5tabs 1 tablet by mouth Guadalupe, - at M.D. 09/27 bedtime 3 days, then use remaining tablets as needed maximum 1 tablet at bedtime. Klonopin 02/11 Hx Tablets 0.5mg 6tabs 1 [...] 5-300mg 3tabs take 1 po q 6 Guadalupe, - hours, as M.D. 12/03 needed for pain Naproxen 09/18 Hx Tablets 500mg 60tab 1 up to G43.109 Leatha Coles s twice a MD - day as 09/27 needed for migraine. Avoid using more than 2 to 3 times per week Ondansetron 08/21 Hx Tablets 4mg 30tab 1 [...] x1 week then 3 tablets at bedtime [id number] then 4 tablets at bedtime Citalopram 01/22 [...] Hx Tablets 1mg 30tab 1 by V22.2 s mouth Guadalupe, - every day M.D. [...] Tablets 1mg 30tab 1 by Leathapascale Coles, s mouth - three 02/13 times day as needed for aura Nitrofurantoin Hx Capsules 100mg 14cap 1 cap po Unknown Monohydrate /0000 s bid x 7 - days 12/15 Doxycycline Hx Capsules 100mg Stevanovic, Hyclate / MD Rocío - 03/19 Motrin Pilo Hx Suspension 100mg/ml 3 tsp po Unknown Strength /0000 prn - 08/03 Pepto-Bismol Hx Suspension 262mg/15M 120ml as needed Unknown / L - 08/03 Flintstones Hx Chewtabs daily Unknown Plus Iron /0000 - 10/31 Fish Oil Hx Capsules 300mg 1 by Unknown /0000 mouth - every day 08/03 Levothyroxine Hx Tablets 75mcg 1 by Unknown Sodium /0000 mouth - every day 08/03 Vitamin D Hx Tablets 2000Units 1 in Unknown (Cholecalcifero /0000 am,1000 l) - units at 09/27 /2017 Hydrocodone-Jefry Hx Tablets 5-325mg Romero, taminophen / Marline Lopez MD 12/21 Ra Hx Tablets ER take 1 Unknown B-Complex/Vitam /0000 tablet in C CR - once 07/30 Oxcarbazepine Hx Tablets 300mg 90tab 1 tab Leatha Sanket, /0000 s twice a MD - day 06/19 Penicillin V Hx Tablets 500mg 4x a day Unknown Potassium /0000 till out - 09/07 Clindamycin HCL Hx Capsules 150mg one every Unknown / 6 hours - 08/20 Hydrocodone-Jefry Hx Tablets 5-325mg 1 tab by Unknown taminophen /0000 mouth - every 4- 09/07 6 hours /2016 as needed pain Hydrocortisone Hx Cream 1% use sparingly - twice a 09/07 day x weeks Levothyroxine Hx Tablets 25mcg 1 by Unknown Sodium / mouth - every day 08/14 Dicyclomine HCL Hx Capsules 10mg one Unknown / capsule - tid 07/30 Skin Hair Nails Hx 1 tab a Unknown /0000 day - 07/30 Vitamin B-12 Hx Tablets Sub 1 by Ezequiel S. /0000 mouth Beatriz, - every day M.DJose 07/31 Vital Signs Date Vital Result Comment 09/27/2018 Height 59 inches 4'11" Weight 87.00 lb BP Systolic Sitting 100 mmHg BP Diastolic Sitting 60 mmHg BMI (Body Mass Index) 17.6 kg/m2 08/14/2018 Height 59 inches 4'11" Weight 85.25 [...] ng/mL 20-50 7 Vitamin D, 1,25 Dihydroxy 52 pg/mL 18-78 8 Vitamin B6 08/14/2018 Pyridoxal 5-Phosphate 3 g/L 5-50 9 Pyridoxic Acid <2 g/L 3-30 10 Iron & Iron Binding Capacity 08/14/2018 Iron 119 g/dL 50-212 Unsaturated Iron Binding 186 g/dL Total Iron Binding Capacity 305 g/dL 250-450 Transferrin 218 mg/dL 203-362 % Iron Saturation 39 % 15-55 Laboratory test finding 08/14/2018 Ferritin 11.6 ng/mL 11-307 11 Laboratory test finding 12/06/2017 TSH (Thyroid Stim 6.16 mcIU/mL High 0.34-5.60 Horm) Free T4 (Free Thyroxine) 0.59 ng/dL Low 0.61-1.12 Trileptal (Oxcarbazepine) 13 g/mL 3 - 35 12 Clobazam Frisium Level 12/06/2017 Clobazam 133 ng/mL 30-300 Desmethylclobazam 1140 ng/mL 300-3000 13 CBC Auto Diff 07/18/2017 White Blood Count [...] test finding 07/18/2017 Levetiracetam (Keppra) <2.0 g/mL 14 Trileptal (Oxcarbazepine) 35 g/mL 3 - 35 15 Inr/Protime 07/18/2017 Inr 0.92 0.89-1.11 Laboratory test finding 07/18/2017 Partial Thrombo Time 32.2 seconds 26.0 -36.3 PTT Urinalysis Profile 07/18/2017 Urine Color Yellow Urine Appearance Cloudy Urine Specific [place] 1.015 1.010-1.030 Urine pH 5.0 5-9 Urine [...] Egfr Non- 113.8 >60 Egfr 146.3 >60 16 Urine Culture And 07/18/2017 Urine Culture SEE RESULT BELOW 17 Sensitivities Laboratory test finding 07/18/2017 Phosphorus 3.3 [...] 06/26/2017 Lactic Acid 0.4 mmol/L Low 0.5-2.0 18 Comp Metabolic Panel 06/26/2017 Sodium 131 mmol/L [...] Egfr Non- 143.7 >60 Egfr 184.8 >60 19 Potassium 4.1 mmol/L 3.5-5.0 Anion Gap 6 [...] Egfr Non- 134.2 >60 Egfr 172.6 >60 20 Laboratory test finding 05/27/2017 Magnesium 2.0 mg/dL 1.9-2.7 Laboratory test finding 05/20/2017 Lactic Acid 1.0 mmol/L 0.5-2.0 21 CBC Auto Diff 05/20/2017 White Blood Count [...] Egfr Non- 118.3 >60 Egfr 152.1 >60 22 Laboratory test finding 05/20/2017 Magnesium 2.2 mg/dL 1.9-2.7 Carbamazepine (Tegretol) 2.0 g/mL Low 4.0-12.0 Inr/Protime 05/20/2017 Inr 0.90 0.89-1.11 Laboratory test finding 05/20/2017 Levetiracetam (Keppra) 28.8 g/mL 23 CBC Auto Diff 05/05/2017 White Blood Count [...] Color Yellow Urine Appearance Cloudy Urine Specific [place] 1.013 1.010-1.030 Urine pH 7.0 5-9 Urine [...] Egfr Non- 140.4 >60 Egfr 180.6 >60 25 Laboratory test finding 05/05/2017 Magnesium 1.9 mg/dL 1.9-2.7 TSH (Thyroid Stim Horm) 1.80 mcIU/mL 0.34-5.60 Urine Culture And 05/05/2017 Urine Culture SEE RESULT 26 Sensitivities BELOW Laboratory test finding 05/05/2017 Levetiracetam (Keppra) 36.5 g/mL 27 Inr/Protime 04/29/2017 Inr 0.91 0.89-1.11 CBC Auto [...] finding 04/29/2017 Lactic Acid 1.4 mmol/L 0.5-2.0 28 Comp Metabolic Panel 04/29/2017 Sodium 136 mmol/L [...] Egfr Non- 125.8 >60 Egfr 161.8 >60 29 Laboratory test finding 04/29/2017 Magnesium 2.0 mg/dL 1.9-2.7 Levetiracetam (Keppra) 66.4 g/mL 30 Trileptal (Oxcarbazepine) 28 g/mL 3 - 35 31 Urine Drug SCR ED & 04/27/2017 Amphetamine Ur Screen None Detected None Detect Pain Clinic Barbiturates Urine Screen None Detected None Detect Benzodiazepine Urine Screen Presumptive Posi <SEE NOTE> None Detect 32 Urine Cannabinoids Screen None Detected None Detect Urine Cocaine Screen None Detected None Detect Urine Opiates Screen Presumptive Posi <SEE NOTE> None Detect 33 Urine Phencyclidine Screen None Detected None Detect 34 Inr/Protime 04/27/2017 Inr 0.93 0.89-1.11 Laboratory test finding 04/27/2017 Levetiracetam (Keppra) 46.6 g/mL 35 Trileptal (Oxcarbazepine) 37 g/mL 3 - 35 36 Laboratory test finding 04/27/2017 Partial Thrombo Time [...] finding 04/27/2017 Lactic Acid 0.6 mmol/L 0.5-2.0 37 Urinalysis Profile 04/27/2017 Urine Color Yellow Urine Appearance Cloudy Urine Specific [place] 1.018 1.010-1.030 Urine pH 7.0 5-9 Urine Urobilinogen Negative Negative Urine Ketones Negative Negative Urine Protein Negative Negative Urine Leukocytes Trace Negative Urine Blood Negative Negative * * Negative 38 Urine Nitrite Negative Negative Urine Bilirubin Negative [...] Egfr Non- 118.3 >60 Egfr 152.1 >60 39 Urine Culture And 04/27/2017 Urine Culture SEE RESULT BELOW 40 Sensitivities Laboratory test finding 04/27/2017 Magnesium 2.1 [...] Egfr Non- 98.5 >60 Egfr 126.6 >60 41 Laboratory test finding 04/21/2017 Magnesium 2.2 mg/dL 1.9-2.7 Creatine Kinase(CK) 66 U/L 10-223 C Reactive Protein 1.60 mg/L < 5.00 42 HCG < 0.60 mIU/mL 43 CBC Auto Diff 04/21/2017 White Blood Count [...] Color Yellow Urine Appearance Cloudy Urine Specific [place] 1.032 High 1.010-1.030 Urine pH 5.0 5-9 [...] finding 04/21/2017 Lactic Acid 1.0 mmol/L 0.5-2.0 44 Levetiracetam (Keppra) 35.0 g/mL 45 Trileptal (Oxcarbazepine) 28 g/mL 3 - 35 46 Laboratory test finding 03/19/2017 Clotest SEE RESULT BELOW 47 Laboratory test finding 11/23/2016 Trileptal 11 g/mL 3 - 35 48 (Oxcarbazepine) Levetiracetam (Keppra) 63.6 g/mL 49 Laboratory test finding 11/24/2015 Levetiracetam (Keppra) 21.7 g/mL 50 Urinalysis Profile 07/14/2015 Urine Color Yellow Urine Appearance Cloudy Urine Specific [place] 1.017 1.010-1.030 Urine pH 6.0 5-9 Urine [...] 07/14/2015 Urine Culture And SEE RESULT BELOW 51 finding Sensitivities Laboratory test 07/10/2015 Partial Thrombo Time 28.1 seconds 26.0-36.3 finding PTT Laboratory test 07/10/2015 Lactic Acid 1.4 mmol/L 0.5-2.2 finding Laboratory test 07/10/2015 Urine Culture And SEE RESULT BELOW 52 finding Sensitivities Blood Culture SEE RESULT BELOW 53 Laboratory test finding 07/10/2015 C Reactive Protein 106.54 mg/L High < 5.00 54 Urinalysis Profile 07/10/2015 Urine Color Yellow Urine Appearance Cloudy Urine Specific [place] 1.017 1.010-1.030 Urine pH 5.0 5-9 Urine [...] Egfr Non- 152.6 >60 Egfr 196.3 >60 55 Inr/Protime 07/10/2015 Inr 0.83 0.78-1.07 Laboratory test finding 06/05/2015 Creatine Kinase(CK) 72 U/L 10-223 Troponin-I (TnI) 0.00 ng/mL <0.03 56 B-Type Natriuretic Peptide BNP 104 pg/mL High 57 CBC Auto Diff 06/05/2015 White Blood Count [...] Egfr Non- 201.1 >60 Egfr 258.7 >60 58 CBC No Diff 01/12/2015 White Blood Count 8.5 10^3/uL 4.8-10.8 59 Red Blood Count 4.10 10^6/uL 4.0-5.4 59 Hemoglobin 12.6 g/dL 12.0-16.0 59 Hematocrit 37 % 35-47 59 Mean Corpuscular Volume 90 fL 80-97 59 Mean Corpuscular Hemoglobin 31 pg 27-31 59 Mean Corpuscular HGB Conc 34 g/dL 31-36 59 Red Cell Distribution Width 15 % 10.5-15 59 Platelet Count 245 10^3/uL 150-450 59 Mean Platelet Volume 9 um3 7.4-10.4 59 Laboratory test finding 01/12/2015 Rubella Screen Equivocal IU/mL Immune 59, 60 Type & Screen 01/12/2015 Patient Blood Type O Positive 59 Antibody Screen NEGATIVE 59 Laboratory test finding 01/12/2015 Hemoglobin A1c 4.9 % Less than 6.0 59 , 61 Levetiracetam 16.8 g/mL 59, 62 Oxcarbazepine 19 g/mL 3 - 35 59, 63 Syphilis Screen 01/12/2015 Syphilis IgG TNP Nonreactive 59 RPR Nonreactive Nonreactive 59 RPR Titer TNP 59 Pediatric/Maternal YES 59 Laboratory test 01/12/2015 Hepatitis B Surface Nonreactive Nonreactive 59, 64 finding Antigen HIV 1/2 AB 01/12/2015 HIV 1 2 Antibody Nonreactive Nonreactive 59, 65 Evaluation Laboratory test 04/03/2014 Levetiracetam 8.5 g/mL 66, 67 finding Oxcarbazepine 23 g/mL 3 - 35 66, 68 Comp Metabolic Panel 04/03/2014 Sodium 138 mmol/L 133-145 66 Potassium 4.0 mmol/L 3.7-5.6 66 Chloride 106 mmol/L 101-111 66 Co2 Carbon Dioxide 27 mmol/L 22-32 66 Anion Gap 5 mmol/L 2-11 66 Glucose 85 mg/dL 70-100 66 Blood Urea Nitrogen 11 mg/dL 6-24 66 Creatinine 0.55 mg/dL 0.51-0.95 66 BUN/Creatinine Ratio 20.0 8-20 66 Calcium 9.3 mg/dL 8.6-10.3 66 Total Protein 6.1 g/dL Low 6.4-8.9 66 Albumin 4.1 g/dL 3.2-5.2 66 Globulin 2.0 g/dL 2-4 66 Albumin/Globulin Ratio 2.1 1-3 66 Total Bilirubin 0.20 mg/dL 0.2-1.0 66 Alkaline Phosphatase 66 U/L 34-104 66 Alt 9 U/L 7-52 66 Ast 13 U/L 13-39 66 Egfr Non- 128.1 >60 66 Egfr 164.7 >60 66, 69 Laboratory test finding 01/28/2014 Inr 0.96 0.85-1.06 [...] Low 11-307 Vitamin B12 319 pg/mL 180-914 70 Laboratory test finding 12/01/2013 Levetiracetam 30.3 g/mL 71 Oxcarbazepine 29 g/mL 3 - 35 72 CBC Auto Diff 10/20/2013 White Blood Count [...] 0.1 Inr/Protime 10/20/2013 Inr 1.09 High 0.85-1.06 73 Laboratory test finding 10/20/2013 Activated Partial 31.6 seconds 24.0- 36.1 74 Thrombo Time Comp Metabolic Panel 10/20/2013 Sodium [...] Egfr Non- 97.0 >60 Egfr 124.7 >60 75 Laboratory test finding 10/20/2013 Lactic Acid 1.0 mmol/L 0.5-1.6 HIV 1 2 AB Self Referred Nonreactive Nonreactive 76 Blood Culture (SEE NOTE) 77 Laboratory test finding 10/20/2013 Serum Negative Negative 78 Blood Culture (SEE NOTE) 79 Laboratory test finding 09/18/2013 Levetiracetam 49.6 g/mL 80 CBC Auto Diff 2013 White Blood Count [...] Egfr Non- 97.0 >60 Egfr 124.7 >60 81 Laboratory test finding 08/12/2013 Serum Negative Negative 82 CBC Auto Diff 08/12/2013 White Blood Count [...] Egfr Non- 73.0 >60 Egfr 93.9 >60 83 Laboratory test finding 08/12/2013 TSH (Thyroid Stimulating 1.87 miu/mL 0.34-5.60 Horm) C Reactive Protein < 0.5 mg/dL Less than 0.5 Creatine Kinase 51 U/L 0-200 Levetiracetam 13.5 g/mL 84 Urinalysis 08/12/2013 Urine Color Yellow Urine Appearance Turbid Urine Specific [place] 1.024 1.010-1.030 Urine Esterase Negative Negative Urine Nitrate Negative Negative Urine Urobilinogen Negative E.U./dL Negative Urine Protein Negative mg/dL Negative Urine pH 6.5 5-9 Urine Blood Negative Negative Urine Ketones Negative mg/dL Negative Urine Bilirubin Negative Negative Urine Glucose Negative mg/dL Negative Urinalysis 08/06/2013 Urine Color Yellow Urine Appearance Clear Urine Specific [place] 1.016 1.010-1.030 Urine Esterase Negative Negative Urine Nitrate Negative Negative Urine Urobilinogen Negative E.U./dL Negative Urine Protein Negative mg/dL Negative Urine pH 8.0 5-9 Urine Blood Negative Negative Urine Ketones Negative mg/dL Negative Urine Bilirubin Negative Negative Urine Glucose Negative mg/dL Negative Laboratory test finding 08/06/2013 Levetiracetam 18.2 g/mL 85 Oxcarbazepine 6 g/mL 3 - 35 86 Oncology CBC Auto Diff 07/15/2013 White Blood [...] Laboratory test finding 07/15/2013 Cell Morphology 1+ 87 CBC Auto Diff 06/07/2013 White Blood Count [...] Laboratory test finding 06/07/2013 Levetiracetam 25.5 g/mL 88 1 Because ethnic data is not always [...] <15 (or dialysis) 2 Copy Result to: ROCÍO SOTO ([id number]) 3 Copy Result to: PHYLLIS SOTOIR ([id number]) 4 Copy Result to: PHYLLIS SOTOIR ([id number]) 5 Normal Range 180 to 914 Indeterminate Range 145 to 180 Deficient Range <145 6 Copy Result to: PHYLLIS SOTOIR ([id number]) 7 Copy Result to: PHYLLIS SOTOIR ([id number]) 8 ADDITIONAL INFORMATION This test was developed and its performance characteristics determined by [facility] in a manner consistent with CLIA requirements. This test has not been cleared or approved by the U.S. Food and Drug Administration. Test Performed by: [facility] [address] [place] [address] 9 ADDITIONAL INFORMATION This test was developed and its performance characteristics determined by [facility] in a manner consistent with CLIA requirements. This test has not been cleared or approved by the U.S. Food and Drug Administration. 10 ADDITIONAL INFORMATION This test was developed and its performance characteristics determined by [facility] in a manner consistent with CLIA requirements. This test has not been cleared or approved by the U.S. Food and Drug Administration. Test Performed by: [email or web address] - [address] [address] 11 Copy Result to: ROCÍO SOTO ([id number]) 12 ADDITIONAL INFORMATION This test was developed and its performance characteristics determined by [facility] in a manner consistent with CLIA requirements. This test has not been cleared or approved by the U.S. Food and Drug Administration. Test Performed by: [facility] - [address] [address] 13 This test was developed and its performance characteristics determined by [employer]. It has not been cleared or approved by the Food and Drug Administration. Test Performed by: [facility] [address] [place] [id number] 14 REFERENCE VALUE 12.0 - 46.0 ADDITIONAL INFORMATION This test was developed and its performance characteristics determined by [facility] in a manner consistent with CLIA requirements. This test has not been cleared or approved by the U.S. Food and Drug Administration. Test Performed by: [email or web address] [address] [place] [address] 15 ADDITIONAL INFORMATION This test was developed and its performance characteristics determined by [facility] in a manner consistent with CLIA requirements. This test has not been cleared or approved by the U.S. Food and Drug Administration. Test Performed by: [address] [address] 16 Because ethnic data is not always [...] 5 Kidney failure <15 (or dialysis) 17 SEE RESULT BELOW Name: SELENA DIANE Shawna : [address]: Jackson VALE Acct: [id number] Unit: [id number] AGE: 36 Location: LAB Re07/18/17 SEX: F Status: REG REF SPEC: [id number] TERRENCE: 07/18/[address]: Jackson Louis [facility] REQ: [id number] RECD: 07/18/17 STATUS: ANDERSON AMEZQUITA DR: Rocío Soto MD PC _ SOURCE: URINE SPDES: ORDERED: Urine Culture Procedure Result Reported Site Urine Culture Final 07/19/17- 1439 ML No Growth (<1,000 CFU/mL) * ML - MAIN LAB ([facility]) . END OF REPORT * ML=Testing performed at Main Lab DEPARTMENT OF PATHOLOGY, [address] [place] [address] Navneet Drake M.D. Director [facility] # [id number] 18 [facility] Severe Sepsis and Septic Shock Management [...] 5 Kidney failure <15 (or dialysis) 20 Because ethnic data is not always readily [...] 15-29 5 Kidney failure <15 (or dialysis) 21 [facility] Severe Sepsis and Septic Shock Management Bundle Measure requires all lactic acids initially measuring >2.0 mmol/L be repeated. 22 Because ethnic data is not always [...] 5 Kidney failure <15 (or dialysis) 23 REFERENCE VALUE 12.0 - 46.0 ADDITIONAL INFORMATION This test was developed and its performance characteristics determined by [facility] in a manner consistent with CLIA requirements. This test has not been cleared or approved by the U.S. Food and Drug Administration. Test Performed by: [facility] - [address] [address] 24 *Ascorbic acid is present which may interfere with detection of blood. 25 Because ethnic data is not always readily [...] 15-29 5 Kidney failure <15 (or dialysis) 26 SEE RESULT BELOW Name: SELENA DIANE : [address]: Jackie Snow MD Acct: [id number] Unit: [id number] AGE: 36 Location: ED Re05/05/17 SEX: F Status: DEP ER SPEC: [id number] TERRENCE: 05/05/17-[address]: Jackie Snow MD REQ: [id number] RECD: 05/05/17 STATUS: ANDERSON AMEZQUITA DR: Leatha Coles MD _ SOURCE: URINE SPDESC: ORDERED: Urine Culture Procedure Result Reported Site Urine Culture Final 05/06/17- 1626 ML No growth of clinically significant organisms * ML - MAIN LAB ([facility]) . END OF REPORT * ML=Testing performed at Main Lab DEPARTMENT OF PATHOLOGY, [address] [place] [address] Navneet Drake M.D. Director [facility] # [id number] 27 REFERENCE VALUE 12.0 - 46.0 ADDITIONAL INFORMATION This test was developed and its performance characteristics determined by [facility] in a manner consistent with CLIA requirements. This test has not been cleared or approved by the U.S. Food and Drug Administration. Test Performed by: [place] [address] 28 [facility] Severe Sepsis and Septic Shock Management [...] 5 Kidney failure <15 (or dialysis) 30 REFERENCE VALUE 12.0 - 46.0 ADDITIONAL INFORMATION This test was developed and its performance characteristics determined by [facility] in a manner consistent with CLIA requirements. This test has not been cleared or approved by the U.S. Food and Drug Administration. Test Performed by: [facility] - [address] [address] 31 ADDITIONAL INFORMATION This test was developed and its performance characteristics determined by [facility] in a manner consistent with CLIA requirements. This test has not been cleared or approved by the U.S. Food and Drug Administration. Test Performed by: [facility] - [address] [address] 32 Presumptive Positive Presumptive positive results are unconfirmed. 33 Presumptive Positive Presumptive positive results are unconfirmed. 34 The urine specimen was tested at the listed cutoffs: Drug class test level (ng/mL) Amphetamines 500 Barbiturates 200 Benzodiazepine metabolites 200 Cocaine metabolites 150 Cannabinoids 50 Opiates 300 Pcp 25 Specimen was received without chain of custody. Results should be used for medical purposes only. 35 REFERENCE VALUE 12.0 - 46.0 ADDITIONAL INFORMATION This test was developed and its performance characteristics determined by [facility] in a manner consistent with CLIA requirements. This test has not been cleared or approved by the U.S. Food and Drug Administration. Test Performed by: [facility] - [address] [address] 36 ADDITIONAL INFORMATION This test was developed and its performance characteristics determined by [facility] in a manner consistent with CLIA requirements. This test has not been cleared or approved by the U.S. Food and Drug Administration. Test Performed by: [address] [address] 37 [facility] Severe Sepsis and Septic Shock Management Bundle Measure requires all lactic acids initially measuring >2.0 mmol/L be repeated. 38 *Ascorbic acid is present which may interfere with detection of blood. 39 Because ethnic data is not always readily [...] 15-29 5 Kidney failure <15 (or dialysis) 40 SEE RESULT BELOW Name: SELENA DIANE Shawna : [address]: Flory Lei MD Acct: [id number] Unit: [id number] AGE: 36 Location: ED Re04/27/17 SEX: F Status: DEP ER SPEC: [id number] TERRENCE: 04/27/[address] [facility] [address]: Flory Lei MD REQ: [id number] RECD: 04/27/17 STATUS: ANDERSON AMEZQUITA DR: Leatha Coles MD _ SOURCE: URINE SPDESC: ORDERED: Urine Culture Procedure Result Reported Site Urine Culture Final 04/30/17- 0821 ML Organism 1 ESCHERICHIA COLI Irwin Count 25-50,000 (Moderate) CFU/ML 1. ESCHERICHIA COLI [...] antibiotic reporting. * ML - MAIN LAB ([facility]) . END OF REPORT * ML=Testing performed at Main Lab DEPARTMENT OF PATHOLOGY, [address] [place] [address] Navneet Drake M.D. Director [facility] # [id number] 41 Because ethnic data is not always [...] (or dialysis) 42 Acute inflammation: >10.00 43 <5.0 Negative 5.0 - 25.0 Indeterminate (Repeat testing recommended after 72 hours) >25.0 Positive Perimenopausal women can display HCG levels of up to 20 mIU/mL 44 [facility] Severe Sepsis and Septic Shock Management Bundle Measure requires all lactic acids initially measuring >2.0 mmol/L be repeated. 45 REFERENCE VALUE 12.0 - 46.0 ADDITIONAL INFORMATION This test was developed and its performance characteristics determined by [facility] in a manner consistent with CLIA requirements. This test has not been cleared or approved by the U.S. Food and Drug Administration. Test Performed by: [facility] - [address] [address] 46 ADDITIONAL INFORMATION This test was developed and its performance characteristics determined by [facility] in a manner consistent with CLIA requirements. This test has not been cleared or approved by the U.S. Food and Drug Administration. Test Performed by: [facility] Center - [address] [address] 47 SEE RESULT BELOW Name: SELENA DIANE : [address]: Jae George MD Acct: [id number] Unit: [id number] AGE: 36 Location: ENDO Re03/19/17 SEX: F Status: REG REF SPEC: [id number] TERRENCE: 03/19/17-[address] [facility] [address]: Jae eGorge MD REQ: [id number] RECD: 03/19/17 STATUS: ANDERSON AMEZQUITA DR: Leatha Soto MD PC _ SOURCE: GAS ANTRUM SPDESC: ORDERED: Clotest Procedure Result Reported Site Clotest Final 03/20/17714 ML Clotest Negative * ML - MAIN LAB ([facility]) . END OF REPORT * ML=Testing performed at Main Lab DEPARTMENT OF PATHOLOGY, [address] [place] [address] Navneet Drake M.D. Director [facility] # [id number] 48 ADDITIONAL INFORMATION This test was developed and its performance characteristics determined by [facility] in a manner consistent with CLIA requirements. This test has not been cleared or approved by the U.S. Food and Drug Administration. Test Performed by: [facility] - [address] [address] Frame Trimmer: Matti Gould II, M.D., Ph.D. 49 REFERENCE VALUE 12.0 - 46.0 ADDITIONAL INFORMATION This test was developed and its performance characteristics determined by [facility] in a manner consistent with CLIA requirements. This test has not been cleared or approved by the U.S. Food and Drug Administration. Test Performed by: [facility] [place] [address] Frame Trimmer: Matti Gould II, M.D., Ph.D. 50 REFERENCE VALUE 12.0 - 46.0 Test Performed by: [facility] [place] [address] Frame Trimmer: Matti Gould II, M.D., Ph.D. 51 SEE RESULT BELOW Name: SELENA DIANE : [address]: Matti Romero MD Acct: [id number] Unit: [id number] AGE: 34 Location: ED Re07/14/15 SEX: F Status: DEP ER SPEC: [id number] TERRENCE: 07/14/[address] [facility] [address]: Matti Romero MD REQ: [id number] RECD: 07/14/15 STATUS: ANDERSON AMEZQUITA DR: Rocío Soto MD Lucy Butcher MD _ SOURCE: URINE SPDESC: ORDERED: Urine Culture Procedure Result Verified Site Urine Culture Final 07/16/15- 0950 ML Organism 1 ESCHERICHIA COLI [place] Count >100,000 (Many) CFU/ML 1. ESCHERICHIA COLI [...] performed at Main Lab DEPARTMENT OF PATHOLOGY, [address] [place] [address] Navneet Drake M.D. Director [facility] # [id number] 52 SEE RESULT BELOW Name: ROXISELENA L : [address]: Matti Romero MD Acct: [id number] Unit: [id number] AGE: 34 Location: ED Re07/10/15 SEX: F Status: REG ER SPEC: [id number] TERRENCE: 07/10/[address] [facility] [address]: Matti Romero MD REQ: [id number] RECD: 07/10/15 STATUS: ANDERSON AMEZQUITA DR: Rocío Soto MD Lucy Butcher MD _ SOURCE: URINE SPDESC: ORDERED: Urine Culture Procedure Result Verified Site Urine Culture Final 07/12/15- 942 ML Organism 1 ESCHERICHIA COLI [place] Count >100,000 (Many) CFU/ML 1. ESCHERICHIA COLI [...] antibiotic reporting. * ML - MAIN LAB ([facility]) . END OF REPORT * ML=Testing performed at Main Lab DEPARTMENT OF PATHOLOGY, [address] [place] [address] Navneet Drake M.D. Director [facility] # [id number] 53 SEE RESULT BELOW Name: SELENA DIANE : [address]: Matti Romero MD Acct: [id number] Unit: [id number] AGE: 34 Location: ED Re07/10/15 SEX: F Status: REG ER SPEC: [id number] TERRENCE: 07/10/[address] [facility] [address]: Matti Romero MD REQ: [id number] RECD: 07/10/15 STATUS: ANDERSON AMEZQUITA DR: Rocío Soto MD Lucy Butcher MD _ SOURCE: BLOOD,VENO SPDESC: ORDERED: Blood Cult COMMENTS: Patient is On Antibiotics? NO Procedure Result Verified Site Aerobic Culture Bottle Final 07/15/15- 2124 ML No Growth Day 5 Anaerobic Culture Bottle Final 08/2124 ML No Growth Day 5 * ML - MAIN LAB ([facility]) . END OF REPORT * ML=Testing performed at Main Lab DEPARTMENT OF PATHOLOGY, [address] [place] [address] Navneet Drake M.D. Director [facility] # [id number] 54 Acute inflammation: >10.00 55 Because ethnic data is not always [...] 5 Kidney failure <15 (or dialysis) 56 Reference Range and Interpretation: TnI (ng/mL) Interpretation Less Than 0.03 ng/mL Not supportive of diagnosis of ID 0.03 - 0.50 ng/mL Indeterminate: suggest serial studies if clinically indicated. Greater than 0.5 ng/mL Consistent with diagnosis of ID 57 >100 to <200 pg/mL: likely compensated congestive heart failure (CHF) 200 to 400 pg/mL: likely moderate CHF >400 pg/mL: likely moderate to severe CHF 58 Because ethnic data is not always [...] 5 Kidney failure <15 (or dialysis) 59 please also fax results to Dr. Andriy Albrecht [phone] ~~please also fax results to Dr. Andriy Albrecht [phone] please also fax results to Dr. Andriy Albrecht [phone] please also fax results to Dr. Andriy Albrecht please also fax results to Dr. Andriy Albrecht [phone] please also fax results to Dr. Andriy Albrecht [phone] 61 Therapeutic target for the treatment of diabetes Mellitus patients is <7% HBA1C, and in selective patients <6.0%.Please refer to [place] [employer] Diabetic care guidelines for further information. 62 REFERENCE VALUE 12.0 - 46.0 Test Performed by: [place] [address] Frame Trimmer: Matti Gould II, M.D., Ph.D. 63 Test Performed by: [place] [address] Frame Trimmer: Matti Gould II, M.D., Ph.D. 64 please also fax results to Dr. Andriy Albrecht [phone] YES 65 It is recognized that currently available [...] confidence interval of 99.78 to 99.96%. 66 draw in am, prior to first dose. 67 -- REFERENCE VALUE -- 12.0 - 46.0 Test Performed by: [place] [address] Frame Trimmer: Stevo Cuba III, M.D. 68 Test Performed by: [place] [address] Frame Trimmer: Stevo Cuba III, M.D. 69 Because ethnic data is not always readily [...] 15-29 5 Kidney failure <15 (or dialysis) 70 Normal Range 180 to 914 Indeterminate Range 145 to 180 Deficient Range <145 71 -- REFERENCE VALUE -- 12.0 - 46.0 Test Performed by: [place] [address] Frame Trimmer: Stevo Cuba III, M.D. 72 Test Performed by: [place] [address] Frame Trimmer: Stevo Cuba III, M.D. 73 Please note the change in the INR reference range effective 13. 74 Please note the change in the PTT reference range effective 13. 75 Because ethnic data is not always readily [...] 15-29 5 Kidney failure <15 (or dialysis) 76 It is recognized that currently available assays [...] 95% confidence interval of 99.78 to 99.96%. 77 RUN DATE: 10/25/13 [facility] LAB LIVE PAGE 1 RUN TIME: [address] [place] [address] Specimen Inquiry Name: SELENA DIANE : [address]: Nathen Green Acct: [id number] Unit: [id number] AGE: 33 Location: ED Re10/20/13 SEX: F Status: DEP ER SPEC: [id number] TERRENCE: 10/20/[address]: Yvette CHOWDHURY REQ: [id number] RECD: 10/20/13 STATUS: ANDERSON AMEZQUITA DR: [facility] Rocío Soto MD Lucy Butcher MD _ SOURCE: BLOOD,VENO SPDESC: ORDERED: Blood Cult Procedure Result Verified Site Aerobic Culture Bottle Final 10/25/13- 1206 ML No Growth Day 5 Anaerobic Culture Bottle Final 10/25/13- 1206 ML No Growth Day 5 END OF REPORT * ML=Testing performed at Main Lab DEPARTMENT OF PATHOLOGY, [facility] [employer] [place], [place] [address] Navneet Drake M.D. Director [facility] Permit #[id number] 78 This test detects intact HCG only and is indicated for the early detection of . 79 RUN DATE: 10/25/13 [facility] LAB LIVE PAGE 1 RUN TIME: [address] [facility] [employer] [place], [place] [address] Specimen Inquiry Name: SELENA DIANE : [address]: Nathen Green Acct: [id number] Unit: [id number] AGE: 33 Location: ED Re10/20/13 SEX: F Status: DEP ER SPEC: [id number] TERRENCE: 10/20/13-[address]: Yvette CHOWDHURY REQ: [id number] RECD: 10/20/133 STATUS: ANDERSON AMEZQUITA DR: [facility] Rocío Butcher MD _ SOURCE: BLOOD,VENO [facility]: ORDERED: Blood Cult Procedure Result Verified Site Aerobic Culture Bottle Final 10/25/13- 1213 ML No Growth Day 5 Anaerobic Culture Bottle Final 10/25/13- 1213 ML No Growth Day 5 END OF REPORT * ML=Testing performed at Main Lab DEPARTMENT OF PATHOLOGY, [address] [place] [address] Navneet Drake M.D. Director [facility] Permit #[id number] 80 -- REFERENCE VALUE -- 12.0 - 46.0 Test Performed by: [address] [address] Frame Trimmer: Stevo Cuba III, M.D. 81 Because ethnic data is not always readily [...] 15-29 5 Kidney failure <15 (or dialysis) 82 This test detects intact HCG only and is indicated for the early detection of . 83 Because ethnic data is not always readily [...] 15-29 5 Kidney failure <15 (or dialysis) 84 -- REFERENCE VALUE -- 12.0 - 46.0 Test Performed by: [place] [address] Frame Trimmer: Stevo Cuba III, M.D. 85 -- REFERENCE VALUE -- 12.0 - 46.0 Test Performed by: [place] [address] Frame Trimmer: Stevo Cuba III, M.D. 86 Test Performed by: [place] [address] Frame Trimmer: Stevo Cuba III, M.D. 87 @07/15/13 1121: Cell Morphology added. RFLXG=RBC MORPH. 88 -- REFERENCE VALUE -- 12.0 - 46.0 Test Performed by: [place] [id number] Frame Trimmer: Stevo Cuba III, M.D. Procedures Date CPT Code Description Status 05/09/2018 13754 EEG Monitoring Computer Completed 04/29/2018 91222 Neurostimulator Pulse Generator Analysis Simple Completed W/Reprogramming 04/11/2018 Mammogram Completed 03/05/2018 91337 Neurostimulator Pulse Generator Analysis Simple Completed W/Reprogramming 10/31/2017 49690 Neurostimulator Pulse Generator Analysis Simple Completed W/Reprogramming 10/08/2017 53022 Neurostimulator Pulse Generator Analysis Simple Completed W/Reprogramming 09/18/2017 32013 Neurostimulator Pulse Generator Analysis Simple Completed W/Reprogramming 09/04/2017 53274 Neurostimulator Pulse Generator Analysis Simple Completed W/Reprogramming 08/21/2017 41397 Neurostimulator Pulse Generator Cranial Nerve First Completed Hour 07/31/2017 60014 EEG Monitoring Computer Completed 04/11/2017 21273 EEG Monitoring & Video Recording Completed 04/10/2017 57729 EEG Monitoring & Video Recording Completed 04/09/2017 53623 EEG Monitoring & Video Recording Completed 04/08/2017 75792 EEG Monitoring & Video Recording Completed 04/07/2017 24591 EEG Monitoring & Video Recording Completed 04/06/2017 51852 EEG Monitoring & Video Recording Completed 02/06/2017 62815 EEG Monitoring Computer Completed 11/08/2016 70048 ECHO Transthorasic Realtime 2D W Doppler & Color Flow Completed Hosp Encounters Type Date Location Provider CPT E/M Dx Office Visit 09/27/2018 [facility] Nathen Ortega 66099 G40.219 10:00a [facility] R63.4 E03.9 Z96.89 Office Visit 08/14/2018 11:00a [facility] Ezequiel Malik 61138 G40.219 Chele Henderson R63.4 E03.9 F41.9 Office Visit 07/31/2018 8:00a [facility] Elier Henderson 56813 G40.219 [facility] Z87.74 R63.4 R11.0 F41.9 Z79.899 Office Visit 04/29/2018 9:00a [facility] [address] G40.219 Z87.74 F41.9 Z96.89 Office Visit 04/05/2018 2:00p [facility] [address] G40.219 Z96.89 Office Visit 03/05/2018 3:00p [facility] [address] G40.219 Z87.74 F41.9 Office Visit 12/04/2017 2:30p [facility] [address] G40.219 Z87.74 F41.9 R63.4 Office Visit 10/31/2017 9:30a [facility] [address] G40.219 Z87.74 F41.9 Office Visit 10/08/2017 8:30a [facility] [address] G40.219 Z87.74 F41.9 Office Visit 09/18/2017 1:30p [facility] [address] G40.219 G43.109 Z87.74 F41.9 Office Visit 09/04/2017 8:30a [facility] [address] H53.34 G40.219 Office Visit 08/21/2017 8:30a [facility] [address] G40.219 R11.0 Z87.74 F41.9 Office Visit 07/24/2017 11:00a [facility] [address] G40.219 Z87.74 F41.9 Z79.899 Office Visit 06/25/2017 9:00a [facility] [address] G40.219 Z87.74 Z79.899 F41.9 Office Visit 05/21/2017 2:00p [place] [address] G40.219 [facility] Z87.74 Z79.899 F41.9 Office Visit 05/01/2017 12:00p [place] [address] G40.219 [facility] [employer] [facility] Z87.74 Z79.899 F41.9 Office Visit 04/12/2017 11:16a [facility] [address] G40.219 Office Visit 04/11/2017 11:16a [facility] [place] [address] G40.219 Office Visit 04/10/2017 11:15a [facility] [address] G40.219 Office Visit 04/09/2017 11:15a [facility] [place] [address] G40.219 Office Visit 04/08/2017 11:14a [facility] [address] G40.219 Office Visit 04/07/2017 11:14a [facility] [address] G40.219 Office Visit 04/06/2017 11:11a [facility] [address] G40.219 Z87.74 Office Visit 03/28/2017 12:45p [place] [address] G40.219 [facility] F41.9 Office Visit 02/27/2017 10:30a [facility] [place] [address] G40.219 [facility] [employer] [employer] [facility] F41.9 Z87.74 Office Visit 01/22/2017 4:00p [facility] [place] [address] G40.219 [facility] [employer] [facility] F41.9 Z87.74 Office Visit 10/31/2016 3:45p [facility] Ezequiel Henderson 43351 G40.219 [facility] M.DJose Office Visit 10/25/2016 9:30a [facility] 35925 R56.9 Assoc, Hospitalists LUCIANA Chairez Q27.30 Office Visit 10/24/2016 1:12p [facility] Ezequiel Malik 33958 G40.219 Chele Henderson Office Visit 10/23/2016 1:08p [facility] Ezequiel Malik 79822 G40.219 Chele Henderson Office Visit 10/23/2016 9:29a [facility] [place], [address] Q27.30 Hospitalists N.P. G40.909 Office Visit 08/04/2016 10:30a [place] [address] G40.219 [facility] [employer] [facility] Z79.899 R51 Office Visit 04/10/2016 2:30p [place] [address] G40.219 [facility] [employer] [facility] Z79.899 Office Visit 01/10/2016 10:30a [place] [address] G40.219 [facility] Z79.899 Office Visit 11/01/2015 11:30a [facility] Lucy Butcher M.D. 25218 G40.211 [facility] Office Visit 11/25/2014 11:15a [facility] Lucy Butcher M.D. 07590 345.41 [facility] V22.2 784.0 Office Visit 04/02/2014 3:45p [facility] Lucy Butcher M.D. 50254 345.41 [facility] 784.0 Office Visit 12/15/2013 1:45p [facility] Lucy Butcher M.D. 36055 345.11 [facility] [facility] V15.29 Office Visit 10/13/2013 11:15a [facility] Lucy Butcher M.D. 75372 345.91 [facility] Office Visit 08/01/2013 2:00p [facility] Lucy Butcher M.D. 93831 345.91 [facility] Office Visit 04/23/2013 2:00p [facility] Lucy Butcher M.D. 42093 345.90 [facility] Office Visit 12/25/2012 2:15p [facility] Lucy Butcher M.D. 36851 345.41 [facility] V22.2 Office Visit 08/21/2012 4:00p [facility] Lucy Butcher M.D. 32366 345.91 [facility] Plan of Care Future Appointment(s):11/07/2018 12:00 pm - Nathen Ortega M.D. at [facility]09/27/2018 - Nathen Ortega M.D.G40.219 Local-rel symptc epi w cmplx part seiz, ntrct, w/o stat epiFollow up:Follow up in 6 weeks , ok to see at lunch, need 30-45 minR63.4 Abnormal weight lossE03.9 Hypothyroidism, ixlurbaucyuR44.89 Presence of other specified functional implants
--- NOTE | 2018-10-08 01:32 | ED ---
Neurological HPI - HPI Summary HPI Summary: A 38 y/o female brought in by ambulance presents to the ED c/o seizure the night of 10/07/2018 at home. The patient has a Hx of seizures and is well known to the ED. She rates her pain as 10/10. She denies urinary symptoms or biting her tongue. She reports that she was sleeping and had seizure when she woke up. She takes ativan and depakote. She states that she saw Dr. Ortega a few weeks before her seizure. - History of Current Complaint Chief Complaint: EDSeizure Stated Complaint: SEIZURE Time Seen by Provider: 10/08/18 01:14 Hx Obtained From: Patient, EMS Hx Last Menstrual Period: non Onset/Duration: Sudden Onset, Started hours ago, Resolved Timing: Sudden Onset Pain Intensity: 10 Pain Scale Used: 0-10 Numeric - Additional Pertinent History Primary Care Physician: CORAL - Allergy/Home Medications Allergies/Adverse Reactions: Allergies Allergy/AdvReac Type Severity Reaction Status Date / Time bee venom protein (honey bee) Allergy Hives Verified 10/08/18 00:56 cephalexin [From Keflex] Allergy Hives Verified 10/08/18 00:56 morphine Allergy Hives Verified 10/08/18 00:56 mushroom Allergy Hives Verified 10/08/18 00:56 Sulfa (Sulfonamide Allergy Rash Verified 10/08/18 00:56 Antibiotics) enviromental Allergy Eyes Uncoded 10/08/18 00:56 Itchy/Swollen/Red/Watery PMH/Surg Hx/FS Hx/Imm Hx Endocrine/Hematology History: Reports: Hx Thyroid Disease, Hx Anemia - IV iron tx Denies: Hx Anticoagulant Therapy, Hx Diabetes Cardiovascular History: Denies: Hx Congestive Heart Failure, Hx Hypertension, Hx Pacemaker/ICD Comment Only: Other Cardiovascular Problems/Disorders - Arteriovenous malformation - Sx repair in 2008. Right atrial enlargement. 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 RT TEMPORAL LOBE IN 2008 [place] (removed scar tissue). 5 CSECTIONS. VNM simulater.07/2017 Hx Anesthesia Reactions: No - Immunization History Date of Tetanus Vaccine: None Date of Influenza Vaccine: None Infectious Disease History: No Infectious Disease History: Denies: Hx Hepatitis, Hx Human Immunodeficiency Virus (HIV), Traveled Outside the [place] in Last 30 Days - Family History Known Family History: Positive: Cardiac Disease, Hypertension, Other - cancer; denies AVM in the family Negative: Diabetes - Social History Alcohol Use: None Hx Substance Use: No Substance Use Type: Reports: Marijuana Substance Use Comment - Amount & Last Used: Ativan Hx Tobacco Use: Yes Smoking Status (MU): Former Smoker Have You Smoked in the Last Year: Yes - had of close relative on 2016 so smoked to cope Review of Systems Genitourinary: Negative - urinary symptoms Neurological: Negative - biting tongue, Other - Positive: seizure All Other Systems Reviewed And Are Negative: Yes Physical Exam - Summary Physical Exam Summary: VITAL SIGNS: Reviewed. GENERAL: Patient is a well-developed and nourished FEMALE who is lying comfortable in the stretcher playing [employer] on her phone. Patient is not in any acute respiratory distress. HEAD AND FACE: No signs of trauma. No ecchymosis, hematomas or skull depressions. No sinus tenderness. EYES: PERRLA, EOMI x 2, No injected conjunctiva, no nystagmus. EARS: Hearing grossly intact. Ear canals and tympanic membranes are within normal limits. MOUTH: Oropharynx within normal limits. NECK: Supple, trachea is midline, no adenopathy, no JVD, no carotid bruit, no c- spine tenderness, neck with full ROM. CHEST: Symmetric, no tenderness at palpation LUNGS: Clear to auscultation bilaterally. No wheezing or crackles. CVS: Regular rate and rhythm, S1 and S2 present, no murmurs or gallops appreciated. ABDOMEN: Soft, non-tender. No signs of distention. No rebound no guarding, and no masses palpated. Bowel sounds are normal. EXTREMITIES: FROM in all major joints, no edema, no cyanosis or clubbing. NEURO: Alert and oriented x 3. No acute neurological deficits. Speech is normal and follows commands. No tongue biting. No urinary incontinence. SKIN: Dry and warm Triage Information Reviewed: Yes Vital Signs On Initial Exam: Initial Vitals Temp Pulse Resp BP Pulse Ox 98.3 F 98 15 119/80 99 10/08/18 00:53 10/08/18 00:53 10/08/18 00:53 10/08/18 00:53 10/08/18 00:53 Vital Signs Reviewed: Yes Diagnostics - Vital Signs Vital Signs Temp Pulse Resp BP Pulse Ox 10/08/18 00:53 98.3 F 98 15 119/80 99 - Laboratory Result Diagrams: 10/08/18 01:59 10/08/18 01:59 Lab Statement: Any lab studies that have been ordered have been reviewed, and results considered in the medical decision making process. Course/Dx - Course Course Of Treatment: A 38 y/o female brought in by ambulance presents to the ED c/o seizure the night of 10/07/2018 at home. The patient has a Hx of seizures and is well known to the ED. She rates her pain as 10/10. She denies urinary symptoms or biting her tongue. She reports that she was sleeping and had seizure when she woke up. She takes ativan and depakote. She states that she saw justin Guevara, a few weeks before her seizure. Her PE was unremarkable with no tongue biting or urinary incontinence. Lab results were obtained and were unremarkable. In the ED course she was given Metoclopramide Hcl and Potassium Chloride. Pt had no seizure in ED. Dx: seizure. Pt will be discharged home and was instructed to follow up with Dr. Ortega, neurologist, tomorrow. The pt is agreeable with this plan. - Diagnoses Provider Diagnoses: Seizure Discharge - Sign-Out/Discharge Documenting (check all that apply): Patient Departure - DC - Discharge Plan Condition: Stable Disposition: HOME Patient Education Materials: Recurrent Seizures in Adults (ED) Referrals: Madhavi Mayorga MD [Primary Care Provider] - (1-2 days) Yoni Ortega MD [Medical Doctor] - (1 day) Additional Instructions: FOLLOW UP WITH DR. ORTEGA TOMORROW. RETURN TO THE EMERGENCY DEPARTMENT FOR CHANGING OR WORSENING SYMPTOMS. FOLLOW UP WITH PCP IN 1-2 DAYS. - Attestation Statements Document Initiated by Scribe: Yes Documenting Scribe: Fidel Evans Provider For Whom Scribe is Documenting (Include Credential): Marizol Chen MD Scribe Attestation: IFidel, scribed for Marizol Chen MD on 10/08/18 at 0410.
[2018-10-08 02:07] LABS: ABS Basophils 0 10^3/ul (0-0.2); ABS Eosinophils 0.1 10^3/ul (0-0.6); ABS Monocytes 0.7 10^3/ul (0-0.8); ABS Neutrophils 3.4 10^3/ul (1.5-7.7); ABS Nucleated RBC 0 10^3/ul; Hematocrit 38 % (35-47); Hemoglobin 12.8 g/dl (12.0-16.0); Lymphocyte % 32.4 % (25-47); Mean Corpuscular HGB Conc 34 g/dl (31-36); Mean Corpuscular Hemoglobin 30 pg (27-31); Mean Corpuscular Volume 88 fL (80-97); Nucleated Red Blood Cells % 0.2; Platelet Count 245 10^3/ul (150-450); Red Blood Count 4.34 10^6/ul (4.00-5.40); Red Cell Distribution Width 13 % (10.5-15); White Blood Count 6.3 10^3/ul (3.5-10.8)
[2018-10-08 02:25] LABS: EGFR Non-African American 135.7 (>60)
[2018-10-08 02:54] LABS: Urine Appearance Clear; Urine Blood Negative (Negative); Urine Color Yellow; Urine Ketones Negative (Negative); Urine Protein Negative (Negative); Urine Specific Gravity 1.011 (1.010-1.030); Urine Urobilinogen Negative (Negative)
[2018-10-08 04:11] VITALS: BP 94/62
== END | disposition home or self-care (01) ==
LOC: ED 00:49
DX: G40.909 Epilepsy, unspecified, not intractable, without status epilepticus (principal); Z88.5 Allergy status to narcotic agent; Z88.2 Allergy status to sulfonamides; Z88.1 Allergy status to other antibiotic agents; Z91.030 Bee allergy status; Z87.891 Personal history of nicotine dependence
CPT/HCPCS: 36415; 80053; 80164; 81003; 82550; 83735; 84702; 85025; 99283; A9270-GY

== ENCOUNTER 2018-10-13 01:13 | Emergency (ER) | payer OTHER ==
--- NOTE | 2018-10-13 01:24 | ED ---
Neurological HPI - HPI Summary HPI Summary: This patient is a 38 year old F brought in by ambulance to [facility] with a chief complaint of a seizure occurring at 2330 and currently reports having typical aura prior to seizure including left sided weakness, worsening peripheral vision , and eloisa smell/taste. Patient reports two seizures yesterday, one in the morning and another in the afternoon. Seizure medications include Briviact and Aptiom. Patient additionally takes vitamin B6, B12, magnesium, and potassium. - History of Current Complaint Stated Complaint: AURA Time Seen by Provider: 10/13/18 01:23 Hx Obtained From: Patient Hx Last Menstrual Period: non Onset/Duration: Started hours ago Timing: Intermittent Episodes Lasting: Number of Seizures: 3 - past two days Character: Other: - typical aura: left sided weakness, copper taste Episode Lasting: Seconds/Minutes Aggravating: Nothing Associated Signs and Symptoms: Positive: Visual Changes - Additional Pertinent History Primary Care Physician: CORAL - Allergy/Home Medications Allergies/Adverse Reactions: Allergies Allergy/AdvReac Type Severity Reaction Status Date / Time bee venom protein (honey bee) Allergy Hives Verified 10/08/18 00:56 cephalexin [From Keflex] Allergy Hives Verified 10/08/18 00:56 morphine Allergy Hives Verified 10/08/18 00:56 mushroom Allergy Hives Verified 10/08/18 00:56 Sulfa (Sulfonamide Allergy Rash Verified 10/08/18 00:56 Antibiotics) enviromental Allergy Eyes Uncoded 10/08/18 00:56 Itchy/Swollen/Red/Watery PMH/Surg Hx/FS Hx/Imm Hx Endocrine/Hematology History: Reports: Hx Thyroid Disease, Hx Anemia - IV iron tx Denies: Hx Anticoagulant Therapy, Hx Diabetes Cardiovascular History: Denies: Hx Congestive Heart Failure, Hx Hypertension, Hx Pacemaker/ICD Comment Only: Other Cardiovascular Problems/Disorders - Arteriovenous malformation - Sx repair in 2008. Right atrial enlargement. 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 RT TEMPORAL LOBE IN 2008 [place] (removed scar tissue). 5 CSECTIONS. VNM simulater.07/2017 Hx Anesthesia Reactions: No - Immunization History Date of Tetanus Vaccine: None Date of Influenza Vaccine: None Infectious Disease History: Denies: Hx Hepatitis, Hx Human Immunodeficiency Virus (HIV) - Family History Known Family History: Positive: Cardiac Disease, Hypertension, Other - cancer; denies AVM in the family Negative: Diabetes - Social History Alcohol Use: None Hx Substance Use: No Substance Use Type: Reports: Marijuana Substance Use Comment - Amount & Last Used: Ativan Hx Tobacco Use: Yes Smoking Status (MU): Former Smoker Have You Smoked in the Last Year: Yes - had of close relative on 2016 so smoked to cope Review of Systems Positive: Blurred Vision Neurological: Other - seizure Positive: Weakness - left All Other Systems Reviewed And Are Negative: Yes Physical Exam - Summary Physical Exam Summary: Appearance: Well-appearing, Well-nourished, lying in bed comfortably Skin: Warm, dry, no obvious rash Eyes: sclera anicteric, no conjunctival pallor ENT: mucous membranes moist, pharynx appears normal Neck: Supple, nontender Respiratory: Clear to auscultation, no signs of respiratory distress Cardiovascular: Normal S1, S2. No murmurs. Normal distal pulses in tibial and radial bilaterally. Abdomen: Soft, nontender, normal active bowel sounds present Musculoskeletal: Normal, Strength/ROM Intact Neurological: A&Ox3, awake and alert, mentation is normal, speech is fluent and appropriate Psychiatric: affect is normal, does not appear anxious or depressed Triage Information Reviewed: Yes Vital Signs Reviewed: Yes Diagnostics - Laboratory Result Diagrams: 10/13/18 02:11 10/13/18 02:11 Lab Statement: Any lab studies that have been ordered have been reviewed, and results considered in the medical decision making process. Course/Dx - Course Course Of Treatment: This is a 38-year-old woman with a history of a complicated seizure disorder apparently triggered by prior brain surgery who presents now with feeling an aura that often precedes a seizure for her. She has been observed here for number hours and has not had any seizure activity, has been given a dose of Ativan IV as a preventative. Review of her chart does show a documented seizure disorder with epileptiform activity on EEG monitoring , however there is also note made of episodes that are unlikely to be seizures. In any event, the patient is now stable for discharge, and I will make no changes to her regimen at present. She does have a local neurologist that she can follow-up with. - Diagnoses Provider Diagnoses: Epilepsy, Localization-related symptomatic epilepsy and epileptic syndromes with complex partial seizures, intractable, with status epilepticus Discharge - Sign-Out/Discharge Documenting (check all that apply): Patient Departure - discharge - Discharge Plan Condition: Good Disposition: HOME Patient Education Materials: Epilepsy (ED) Referrals: Leatha Coles MD [Medical Doctor] - 2 Days Madhavi Mayorga MD [Primary Care Provider] - - Billing Disposition and Condition Condition: GOOD Disposition: Home - Attestation Statements Document Initiated by Elle: Yes Documenting Scribe: Berenice Lockhart Provider For Whom Elle is Documenting (Include Credential): Marvin Bernard MD Scribe Attestation: I, Berenice Lockhart, scribed for Marvin Bernard MD on 10/14/18 at 0015. Scribe Documentation Reviewed: Yes Provider Attestation: The documentation as recorded by the scribeBerenice accurately reflects the service I personally performed and the decisions made by me, Marvin Bernard MD
[2018-10-13] MEDS ORDERED: LORazepam INJ* 2 MG/ML 1 ML VIAL IV ONE (01:27)
[2018-10-13 02:19] LABS: ABS Basophils 0 10^3/ul (0-0.2); ABS Eosinophils 0.1 10^3/ul (0-0.6); ABS Lymphocytes 2.5 10^3/ul (1.0-4.8); ABS Monocytes 0.8 10^3/ul (0-0.8); ABS Neutrophils 3.4 10^3/ul (1.5-7.7); ABS Nucleated RBC 0 10^3/ul; Eosinophil % 2.1 % (0-6); Hematocrit 37 % (35-47); Hemoglobin 12.4 g/dl (12.0-16.0); Lymphocyte % 35.9 % (25-47); Mean Corpuscular HGB Conc 33 g/dl (31-36); Mean Corpuscular Hemoglobin 29 pg (27-31); Mean Corpuscular Volume 87 fL (80-97); Mean Platelet Volume 7.5 fL (7.4-10.4); Nucleated Red Blood Cells % 0.1; Platelet Count 229 10^3/ul (150-450); Red Blood Count 4.28 10^6/ul (4.00-5.40); Red Cell Distribution Width 14 % (10.5-15); White Blood Count 6.8 10^3/ul (3.5-10.8)
[2018-10-13 02:39] LABS: Urine Appearance Clear; Urine Blood Negative (Negative); Urine Color Straw; Urine Ketones Negative (Negative); Urine Protein Negative (Negative); Urine Specific Gravity 1.005 (1.010-1.030); Urine Urobilinogen Negative (Negative)
[2018-10-13 02:57] LABS: INR 0.88 (0.77-1.02)
[2018-10-13 03:02] LABS: EGFR Non-African American 119.3 (>60)
[2018-10-13 05:41] VITALS: BP 85/58
== END 2018-10-13 05:47 | disposition home or self-care (01) ==
LOC: ED 01:13
DX: G40.211 Localization-related (focal) (partial) symptomatic epilepsy and epileptic syndromes with complex partial seizures, intractable, with status epilepticus (principal); Z87.891 Personal history of nicotine dependence; Z88.5 Allergy status to narcotic agent; Z88.2 Allergy status to sulfonamides
CPT/HCPCS: 36415; 80053; 80164; 80320; 81003; 83605; 83735; 85025; 85610; 96374; 99283; G0480; J2060

== ENCOUNTER 2018-10-28 05:19 | Emergency (ER) | payer OTHER ==
[2018-10-28] MEDS ORDERED: NS 0.9% 1000 ML* 1,000 ML IV ONE (06:07)
[2018-10-28] MEDS ORDERED: LORazepam INJ* 2 MG/ML 1 ML VIAL IV PUSH ONE (06:07)
[2018-10-28] MEDS ORDERED: Ondansetron INJ* 2 MG/ML VIAL IV ONE (06:08)
--- NOTE | 2018-10-28 06:15 | ED ---
Seizure - HPI Summary HPI Summary: Patient is a 38-year-old female who presents to emergency department for seizures over the night. Patient has a history of AV malformation with surgical repair and tonic-clonic seizures. She currently follows with Dr. Ortega. Patient is seen in the ER frequently for seizures. Patient believes she had 2 seizures through the night. She did not better, or have incontinence. She denies recent illness, fevers, cough, sore throat, abdominal pain and diarrhea. She does note nausea post ictal. Pt. states she still feels like she is having an auroa. Pt. notes she is concerned her thyroid may be off. Symptoms are moderate in severity. No current modifying factors. Otherwise denies past medical hx. Pt. currently taking Aptiom, Briviad, and vitamins. Pt. states seizures today were the same as her typical seizures. No injuries were sustained. - History Of Current Complaint Chief Complaint: EDSeizure Time Seen by Provider: 10/28/18 05:41 Hx Obtained From: Patient - Allergies/Home Medications Allergies/Adverse Reactions: Allergies Allergy/AdvReac Type Severity Reaction Status Date / Time bee venom protein (honey bee) Allergy Hives Verified 10/28/18 05:28 cephalexin [From Keflex] Allergy Hives Verified 10/28/18 05:28 morphine Allergy Hives Verified 10/28/18 05:28 mushroom Allergy Hives Verified 10/28/18 05:28 Sulfa (Sulfonamide Allergy Rash Verified 10/28/18 05:28 Antibiotics) enviromental Allergy Eyes Uncoded 10/28/18 05:28 Itchy/Swollen/Red/Watery PMH/Surg Hx/FS Hx/Imm Hx Previously Healthy: Yes Endocrine/Hematology History: Reports: Hx Thyroid Disease, Hx Anemia - IV iron tx Denies: Hx Anticoagulant Therapy, Hx Diabetes Cardiovascular History: Denies: Hx Congestive Heart Failure, Hx Hypertension, Hx Pacemaker/ICD Comment Only: Other Cardiovascular Problems/Disorders - Arteriovenous malformation - Sx repair in 2008. Right atrial enlargement. 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 RT TEMPORAL LOBE IN 2008 [place] (removed scar tissue). 5 CSECTIONS. VNM simulater.07/2017 Hx Anesthesia Reactions: No - Immunization History Date of Tetanus Vaccine: unk Date of Influenza Vaccine: fall 2017 Infectious Disease History: No Infectious Disease History: Denies: Hx Hepatitis, Hx Human Immunodeficiency Virus (HIV), Traveled Outside the [place] in Last 30 Days - Family History Known Family History: Positive: Cardiac Disease, Hypertension, Other - cancer; denies AVM in the family Negative: Diabetes - Social History Occupation: Unemployed Lives: With Family Alcohol Use: None Hx Substance Use: No Substance Use Type: Reports: Marijuana Substance Use Comment - Amount & Last Used: its been a while Hx Tobacco Use: Yes Smoking Status (MU): Former Smoker Have You Smoked in the Last Year: Yes - had of close relative on 2016 so smoked to cope Review of Systems Constitutional: Negative Negative: Fever, Chills Eyes: Negative ENT: Negative Cardiovascular: Negative Respiratory: Negative Positive: Nausea. Negative: Abdominal Pain, Vomiting, Diarrhea Genitourinary: Negative Musculoskeletal: Negative Skin: Negative Neurological: Other - seizure All Other Systems Reviewed And Are Negative: Yes Physical Exam Triage Information Reviewed: Yes Vital Signs On Initial Exam: Initial Vitals Temp Pulse Resp BP Pulse Ox 97.7 F 87 13 119/77 98 10/28/18 05:26 10/28/18 05:26 10/28/18 05:26 10/28/18 05:26 10/28/18 05:26 Vital Signs Reviewed: Yes Appearance: Positive: Well-Appearing - Pt. sitting up in bed in NAD. Skin: Positive: Warm, Dry Head/Face: Positive: Normal Head/Face Inspection Eyes: Positive: Normal, EOMI ENT: Positive: TMs normal Neck: Positive: Supple, Nontender Respiratory/Lung Sounds: Positive: Clear to Auscultation, Breath Sounds Present Cardiovascular: Positive: Normal, RRR Abdomen Description: Positive: Nontender, Soft Musculoskeletal: Positive: Normal, Strength/ROM Intact Neurological: Positive: Normal, Alert, Oriented to Person Place, Time, CN Intact II-III Psychiatric: Positive: Affect/Mood Appropriate - [place] Coma Scale Best Eye Response: 4 - Spontaneous Best Motor Response: 6 - Obeys Commands Best Verbal Response: 5 - Oriented Coma Scale Total: 15 Diagnostics - Vital Signs Vital Signs Temp Pulse Resp BP Pulse Ox 10/28/18 05:31 79 18 119/77 99 10/28/18 05:30 75 12 98 10/28/18 05:26 97.7 F 87 13 119/77 98 - Laboratory Result Diagrams: 10/28/18 06:44 10/28/18 06:44 Lab Statement: Any lab studies that have been ordered have been reviewed, and results considered in the medical decision making process. Course/Dx - Course Course Of Treatment: Pt. presenting for evaluation after having 1-2 seizures last night. She c/o nausea and veritgo which are typical for her post ictal. She is afebrile with stable vital signs. Will check basic labs and given IV fluids, ativan and zofran. Labs are unremarkable. Pt. has been ambulatory to the restroom without difficulty. On re-exam pt. is sleeping comfortably. Results were discussed. She is feeling better after medication. Will dc her home stable. To call her neurologist, Dr. Ortega, today to schedule a close f.u apt. To return to ER if sxs change or worsen. Pt. understands and agrees with plan. - Diagnoses Differential Diagnosis/HQI/PQRI: Positive: Known Seizure Disorder Provider Diagnoses: Seizure disorder Discharge - Sign-Out/Discharge Documenting (check all that apply): Patient Departure - Discharge Plan Condition: Improved Disposition: HOME Patient Education Materials: Generalized Tonic Clonic Seizures (ED) Referrals: Yoni Ortega MD [Medical Doctor] - Madhavi Mayorga MD [Primary Care Provider] - Additional Instructions: Schedule a close follow up appointment with Dr. Ortega Continue home medications as directed Return to ER if symptoms change or worsen - Billing Disposition and Condition Condition: IMPROVED Disposition: Home
[2018-10-28 06:45] LABS: Urine Appearance Turbid; Urine Blood Negative (Negative); Urine Color Yellow; Urine Ketones Negative (Negative); Urine Protein Negative (Negative); Urine Specific Gravity 1.018 (1.010-1.030); Urine Urobilinogen Negative (Negative)
[2018-10-28 06:55] LABS: ABS Basophils 0 10^3/ul (0-0.2); ABS Eosinophils 0.1 10^3/ul (0-0.6); ABS Lymphocytes 2.3 10^3/ul (1.0-4.8); ABS Monocytes 0.6 10^3/ul (0-0.8); ABS Neutrophils 3.4 10^3/ul (1.5-7.7); ABS Nucleated RBC 0 10^3/ul; Hematocrit 36 % (35-47); Hemoglobin 12.2 g/dl (12.0-16.0); Lymphocyte % 35.6 %; Mean Corpuscular HGB Conc 34 g/dl (31-36); Mean Corpuscular Hemoglobin 30 pg (27-31); Mean Corpuscular Volume 87 fL (80-97); Mean Platelet Volume 7.2 fL (7.4-10.4); Nucleated Red Blood Cells % 0.1; Platelet Count 200 10^3/ul (150-450); Red Cell Distribution Width 14 % (10.5-15); White Blood Count 6.5 10^3/ul (3.5-10.8)
[2018-10-28 07:15] LABS: EGFR Non-African American 132.7 (>60)
[2018-10-28 08:20] VITALS: BP 105/72
== END 2018-10-28 08:21 | disposition home or self-care (01) ==
LOC: ED 05:19
DX: G40.909 Epilepsy, unspecified, not intractable, without status epilepticus (principal); Z88.6 Allergy status to analgesic agent; Z87.891 Personal history of nicotine dependence
CPT/HCPCS: 36415; 80053; 81003; 84443; 84702; 85025; 96374; 96375; 96376; 99283; J2060; J2405

== ENCOUNTER 2018-11-17 09:31 | Emergency (ER) | payer OTHER ==
--- OUTSIDE RECORDS SUMMARY | 2018-11-17 09:51 | XMS REPORT | Continuity of Care Document ---
:1980 External Reference #:[id number] Author Name Ana thomas Care Team Providers Name Role Phone Madhavi Soto MD Primary Care Physician Unavailable Payers Type Date Identification Numbers Payment Provider Subscriber Effective: Policy Number: [id number] [employer] Selena Diane 2016 Medicaid PayID: [id number] [address] [place] [address] Expires: 2017 Policy Number: [employer] Selena Matos [id number] Roxi PayID: [id number] [address] [place] [address] Advance Directives Description No Information Available Problems Date Description Provider Status Onset: 11/25/2014 [...] Cerebral arteriovenous malformation Leatha Coles MD Active Family History Description No Information Available Social History Type Date Description Comments Sex Unknown Occupation Unemployed ETOH Use Denies alcohol use over a year ago, 2016 Tobacco Use Start: Unknown End: Patient is a former smoker Patient quit in 2003 Unknown Smoking Status Reviewed: 11/07/18 Patient is a former smoker Patient quit in 2003 Allergies, Adverse Reactions, Alerts Date Description Reaction Status Severity Comments 04/23/2013 Morphine Active 11/25/2014 Lacosamide Active Severe 11/25/2014 Zonisamide rash Active Moderate Medications Medication Date Status Form Strength Qnty SIG Indications Ordering Provider Levothyroxine 11/07 Active Tablets 75mcg 1 by Ezequiel Christie mouth Beatriz, every day M.D. Pyridoxine HCL 08/19 Active Tablets 50mg 90tab 1 po qd Ezequiel Malik Tessa Henderson M.D. Divalproex 08/14 Active Tablets ER 250mg 60tab 1 by G40.219 Ezequiel Christie 24HR s mouth Beatriz, every M.D. night at bedtime for 1 week then 2 every night at bedtime Aptiom 04/05 Active Tablets 800mg 60tab take one G40.219 kush s tab by Chele Ortega mouth twice daily Sertraline HCL 12/07 Active Tablets 50mg 60tab 2 tablets F41.9 kush s by aura Ortega M.D. every day Magnesium Oxide 09/18 Active Tablets 400mg 30tab 1 by G43.109 Ezequiel Malik s aura Henderson, every day M.DJose Briviact 07/28 Active Tablets 100mg 75tab 1 by Ezequiel Malik Ling s aura Henderson, every M.D. morning and 1 1/2 every night at bedtime Acetaminophen 00/00 Active Tablets 325mg 120ta take 2 Unknown /0000 bs tabs prn Potassium Active Tablets ER 10Meq take 1 Unknown Chloride ER /0000 tablet by mouth once daily Ferrous Sulfate Active Tablets 325(65Fe) 1 tab po Unknown /0000 mg qd Ra Vitamin D-3 Active Capsules 2000Unit take 1 Unknown /0000 capsule by mouth once daily Levothyroxine 08/14 Hx Tablets 50mcg 30tab 1 po qd Ezequiel SJose Sodium s Marline Henderson M.DJose 11/07 Divalproex 07/[address] 250mg 120ta 1 po at 6 G40.219 Ezequiel SJose Sodium bs PM for 1 Beatriz - wk then 1 M.DJose 08/14 at 6 Am and 6 PM for 1 wk then 2 at 6 Am and 6 PM Vitamin B-12 07/31 Hx Tablets 500mcg 90tab 1 by Ezequiel Malik s mouth Gissell eHnderson - every day M.D. 09/27 Zofran 07/24 Hx Tablets 8mg 9tabs 1/2-one Leatha Coles by mouth MD - every 8 09/27 hours needed for nausea Clonazepam 06/09 Hx Tablets 0.5mg 5tabs 1 tablet by mouth Guadalupe - at M.D. 09/27 bedtime 3 days, [...] 3tabs take 1 po Lucy q 6 Guadalupe, - hours, as M.D. 12/03 needed for pain Naproxen 09/18 Hx Tablets 500mg 60tab 1 up to G43.109 Leatha Coles s twice a MD - day as 09/27 needed for migraine. Avoid using more than 2 to 3 times per week Ondansetron 08/21 Hx Tablets 4mg 30tab 1 up to R11.0 Leatha Coles /2017 Dispers s three MD - times a [...] Coles s mouth MD - twice a 07/02 day Clonazepam 04/23 Hx Tablets 0.5mg 7tabs 1/2 tab Nathen Dispers po bid Chele Ortega - 12/03 Citalopram 04/23 Hx Tablets 20mg 60tab 2 by F41.9 Winston Villar s mouth MD - daily in 05/20 the morning Onfi 04/12 Hx Tablets 10mg 4tabs 1/2 tab Leatha Coles po qhs MD - 03/26 Lorazepam 02/13 Hx Tablets 0.5mg 30tab 1 tablet Leatha Coles s twice a MD - day as 05/21 needed for aura Fycompa 02/09 Hx Tablets 2mg 120ta 1 tablet Leatha Coles bs at MD - bedtime 04/19 x1 week /2016 then 2 tablets at bedtime x1 week then 3 tablets at bedtime [id number] then 4 tablets at bedtime Citalopram 01/22 Hx Tablets 10mg 60tab take 1 by F41.9 Winstno Villar s mouth MD - once 04/23 daily for 1 week then 2 by mouth once daily Phenytoin 10/09 Hx Capsules 100mg 90cap 3 cap by Mayte Culver /2016 s mouth Maddy, - every M.D. 10/30 [...] mouth - every day 08/03 Vitamin D 00/00 Hx Tablets 2000Units 1 in Unknown (Cholecalcifero /0000 am,1000 l) - units at 09/27 Hydrocodone-Jefry 00/00 Hx Tablets 5-325mg Romero, taminophen /0000 Matti Cesar - 12/21 Ra 00/00 Hx Tablets ER take 1 Unknown B-Complex/Vitam / tablet in C CR - once 07/30 Oxcarbazepine Hx Tablets 300mg 90tab 1 tab Leatha Bonno, /0000 s twice a MD - day [...] capsule - tid 07/30 Skin Hair Nails 00 Hx 1 tab a Unknown /0000 day - 07/30 Vitamin B-12 Hx Tablets Sub 1 by Ezequiel Malik /0000 mouth Beatriz, - every day M.D. 07/31 Immunizations Description No Information Available Vital Signs Date Vital Result Comment 11/07/2018 10:58am Height 59 inches 4'11" Weight 87.00 lb Heart Rate 76 /min BP Systolic 100 mmHg BP Diastolic 70 mmHg Respiratory Rate 14 /min BMI (Body Mass Index) 17.6 kg/m2 09/27/2018 10:10am Height 59 inches 4'11" Weight 87.00 lb BP Systolic Sitting 100 mmHg BP Diastolic Sitting 60 mmHg BMI (Body Mass Index) 17.6 kg/m2 08/14/2018 11:06am Height 59 inches 4'11" Weight 85.25 lb Heart Rate 82 /min BP Systolic 86 mmHg BP Diastolic 60 mmHg BMI (Body Mass Index) 17.2 kg/m2 07/31/2018 8:02am Height 59 inches 4'11" Weight 80.00 lb Heart Rate 80 /min BP Systolic Sitting 98 mmHg BP Diastolic Sitting 72 mmHg Respiratory Rate 16 /min BMI (Body Mass Index) 16.2 kg/m2 04/29/2018 8:50am Height 59 inches 4'11" Weight 83.12 lb Heart Rate 68 /min BP Systolic 100 mmHg BP Diastolic 78 mmHg BMI (Body Mass Index) 16.8 kg/m2 04/05/2018 1:47pm Height 59 inches 4'11" Weight 80.25 lb Heart Rate 72 /min BP Systolic 106 mmHg BP Diastolic 80 mmHg BMI (Body Mass Index) 16.2 kg/m2 03/05/2018 3:01pm Height 59 inches 4'11" Weight 82.38 lb Heart Rate 76 /min BP Systolic 96 mmHg BP Diastolic 62 mmHg BMI (Body Mass Index) 16.6 kg/m2 12/04/2017 2:31pm Height 59 inches 4'11" Weight 79.50 lb Heart Rate 68 /min BP Systolic Sitting 108 mmHg BP Diastolic Sitting 62 mmHg Respiratory Rate 15 /min BMI (Body Mass Index) 16.1 kg/m2 10/31/2017 9:30am Height 59 inches 4'11" Weight 84.00 lb Heart Rate 78 /min BP Systolic 100 mmHg BP Diastolic 68 mmHg BMI (Body Mass Index) 17.0 kg/m2 10/08/2017 8:30am Height 59 inches 4'11" Weight 84.00 lb Heart Rate 60 /min BP Systolic 98 mmHg BP Diastolic 62 mmHg BMI (Body Mass Index) 17.0 kg/m2 09/18/2017 1:18pm Height 59 inches 4'11" Weight 83.00 lb Heart Rate 70 /min BP Systolic 92 mmHg BP Diastolic 60 mmHg BMI (Body Mass Index) 16.8 kg/m2 09/04/2017 8:38am Height 59 inches 4'11" Weight 81.38 lb Heart Rate 64 /min BP Systolic 102 mmHg BP Diastolic 62 mmHg BMI (Body Mass Index) 16.4 kg/m2 08/21/2017 8:38am Height 59 inches 4'11" Weight 81.38 lb Heart Rate 68 /min BP Systolic 102 mmHg BP Diastolic 78 mmHg BMI (Body Mass Index) 16.4 kg/m2 07/24/2017 11:02am Height 59 inches 4'11" Weight 84.12 lb Heart Rate 66 /min BP Systolic 90 mmHg BP Diastolic 60 mmHg BMI (Body Mass Index) 17.0 kg/m2 06/25/2017 9:11am Height 59 inches 4'11" Weight 84.12 lb Heart Rate 70 /min BP Systolic Sitting 98 mmHg BP Diastolic Sitting 60 mmHg Respiratory Rate 14 /min BMI (Body Mass Index) 17.0 kg/m2 05/21/2017 2:00pm Height 59 inches 4'11" Weight 80.38 lb Heart Rate 84 /min BP Systolic Sitting 90 mmHg BP Diastolic Sitting 60 mmHg Respiratory Rate 14 /min BMI (Body Mass Index) 16.2 kg/m2 03/28/2017 1:09pm Height 59 inches 4'11" Weight 82.00 lb Heart Rate 84 /min BP Systolic Sitting 108 mmHg BP Diastolic Sitting 60 mmHg Respiratory Rate 15 /min BMI (Body Mass Index) 16.6 kg/m2 02/27/2017 10:37am Height 59 inches 4'11" Weight 87.50 lb Heart Rate 72 /min BP Systolic Sitting 100 mmHg BP Diastolic Sitting 62 mmHg Respiratory Rate 17 /min BMI (Body Mass Index) 17.7 kg/m2 01/22/2017 3:31pm Height 59 inches 4'11" Weight 88.12 lb Heart Rate 72 /min BP Systolic Sitting 100 mmHg BP Diastolic Sitting 60 mmHg Respiratory Rate 17 /min BMI (Body Mass Index) 17.8 kg/m2 10/31/2016 3:55pm Height 59 inches 4'11" Weight 86.00 lb Heart Rate 104 /min BP Systolic Sitting 94 mmHg BP Diastolic Sitting 68 mmHg BMI (Body Mass Index) 17.4 kg/m2 08/04/2016 10:06am Height 59 inches 4'11" Weight 86.00 lb Heart Rate 65 /min BP Systolic Sitting 102 mmHg BP Diastolic Sitting 60 mmHg Respiratory Rate 14 /min O2 % BldC Oximetry 98 % BMI (Body Mass Index) 17.4 kg/m2 04/10/2016 2:17pm Height 59 inches 4'11" Weight 90.50 lb Heart Rate 84 /min BP Systolic Sitting 104 mmHg BP Diastolic Sitting 62 mmHg Respiratory Rate 14 /min BMI (Body Mass Index) 18.3 kg/m2 01/10/2016 10:17am Height 59 inches 4'11" Weight 89.00 lb Heart Rate 76 /min BP Systolic Sitting 102 mmHg BP Diastolic Sitting 64 mmHg Respiratory Rate 14 /min BMI (Body Mass Index) 18.0 kg/m2 11/01/2015 11:19am Height 59 inches 4'11" Weight 94.00 lb Heart Rate 72 /min BP Systolic Sitting 114 mmHg BP Diastolic Sitting 68 mmHg Respiratory Rate 16 /min BMI (Body Mass Index) 19.0 kg/m2 11/25/2014 11:21am Height 59 inches 4'11" Weight 84.00 lb Heart Rate 68 /min BP Systolic Sitting 98 mmHg BP Diastolic Sitting 58 mmHg Respiratory Rate 16 /min BMI (Body Mass Index) 17.0 kg/m2 04/02/2014 4:08pm Height 59 inches 4'11" Weight 88.00 lb Heart Rate 84 /min BP Systolic Sitting 102 mmHg BP Diastolic Sitting 70 mmHg Respiratory Rate 16 /min BMI (Body Mass Index) 17.8 kg/m2 12/15/2013 1:55pm Heart Rate 68 /min BP Systolic Sitting 96 mmHg BP Diastolic Sitting 60 mmHg Respiratory Rate 16 /min 10/13/2013 11:14am Heart Rate 67 /min BP Systolic Sitting 100 mmHg BP Diastolic Sitting 60 mmHg Respiratory Rate 18 /min Results Test Date Facility Test Result H/L Range Note Laboratory test 11/01/2018 [facility] TSH 3.86 mcIU/mL N 0.34- 5.[address] ([place] [address] Stim [place]) [phone] Free T4 (Free Thyroxine) 0.53 ng/dL Low 0.61-1.12 Valproic Acid (Depakene) 57.0 g/mL N 50-100 CBC Auto Diff 08/14/2018 [facility] White Blood 5.6 10^3/uL N 3.5-10.[address] [place] [address] [phone] Red Blood Count 4.30 10^6/uL N 4.00-5.40 Hemoglobin 12.8 g/dL N 12.0-16.0 Hematocrit 38 % N 35-47 Mean Corpuscular Volume 88 fL N 80-97 Mean Corpuscular Hemoglobin 30 pg N 27-31 Mean Corpuscular HGB Conc 34 g/dL N 31-36 Red Cell Distribution Width 13 % N 10.5-15 Platelet Count 287 10^3/uL N 150-450 Mean Platelet Volume 7.3 um3 Low 7.4-10.4 Abs Neutrophils 1.9 10^3/uL N 1.5-7.7 Abs Lymphocytes 2.7 10^3/uL N 1.0-4.8 Abs Monocytes 0.6 10^3/uL N 0-0.8 Abs Eosinophils 0.4 10^3/uL N 0-0.6 Abs Basophils 0 10^3/uL N 0-0.2 Abs Nucleated RBC 0 10^3/uL Granulocyte % 33.6 % Low 38-83 Lymphocyte % 48.3 % High 25-47 Monocyte % 10.7 % High 0-7 Eosinophil % 6.6 % High 0-6 Basophil % 0.8 % N 0-2 Nucleated Red Blood Cells % 0.1 Comp Metabolic Panel 08/14/2018 [facility] Sodium 139 mmol/L N 135-[address] [place] [address] [phone] Potassium 3.5 mmol/L N 3.5-5.0 Chloride 104 mmol/L N 101-111 Co2 Carbon Dioxide 27 mmol/L N 22-32 Anion Gap 8 mmol/L N 2-11 Glucose 88 mg/dL N 70-100 Blood Urea Nitrogen 5 mg/dL Low 6-24 Creatinine 0.59 mg/dL N 0.51-0.95 BUN/Creatinine Ratio 8.5 N 8-20 Calcium 9.3 mg/dL N 8.6-10.3 Total Protein 6.0 g/dL Low 6.4-8.9 Albumin 4.4 g/dL N 3.2-5.2 Globulin 1.6 g/dL Low 2-4 Albumin/Globulin Ratio 2.8 N 1-3 Total Bilirubin 0.30 mg/dL N 0.2-1.0 Alkaline Phosphatase 53 U/L N 34-104 Alt 10 U/L N 7-52 Ast 15 U/L N 13-39 Egfr Non- 115.3 >60 Egfr 139.6 >60 1 Laboratory test 08/14/2018 [facility] TSH (Thyroid 3.19 mcIU/mL N 0.34-5.60 [address] Stim Horm) [place] [address] [phone] Free T4 (Free Thyroxine) 0.41 ng/dL Low 0.61-1.12 3 T3 Total 64 ng/dL Low 87-178 4 Vitamin B12 And 08/14/2018 [facility] Vitamin B12 680 pg/mL N 180-914 5 Folate Serum [address] [place] [address] [phone] Folic Acid (Folate) 4.37 ng/mL >3.99 6 Vitamin D 1,25 08/14/2018 [facility] Vitamin D Total 34.3 ng/mL N 20-50 7 And Vitamin D,2 [address] [facility] 25(Oh) [place] [address] [phone] Vitamin D, 1,25 Dihydroxy 52 pg/mL 18-78 8 Vitamin B6 08/14/2018 [facility] Pyridoxal 3 g/L Abnormal 5- 50 9 [address] [facility] 5-[place] [address] [phone] Pyridoxic Acid <2 g/L Abnormal 3-30 10 Iron & Iron Binding 08/14/2018 [facility] Iron 119 g/dL N 50 -212 [address]acity [address] [place] [address] [phone] Unsaturated Iron Binding 186 g/dL Total Iron Binding Capacity 305 g/dL N 250-450 Transferrin 218 mg/dL N 203-362 % Iron Saturation 39 % N 15-55 Laboratory test 08/14/2018 [facility] Ferritin 11.6 N 11-[address] ng/[place] [address] [phone] Laboratory test 12/06/2017 [facility] TSH (Thyroid 6.16 High 0.34-5.60 finding [address] [facility] Stim [place]orm) mcIU/[place] [address] [phone] Free T4 (Free Thyroxine) 0.59 ng/dL Low 0.61-1.12 Trileptal (Oxcarbazepine) 13 g/mL 3 - 35 12 Clobazam Frisium Level 12/06/2017 [facility] Clobazam 133 ng/mL 30-300 [address] [place] [address] [phone] Desmethylclobazam 1140 ng/mL 300-3000 13 CBC Auto Diff 07/18/2017 [facility] White Blood 6.3 10^3/uL N 3.5-10.[address] Count [place], [place] [id number] [phone] Red Blood Count 4.21 10^6/uL N 4.0-5.4 Hemoglobin 12.5 g/dL N 12.0-16.0 Hematocrit 37 % N 35-47 Mean Corpuscular Volume 88 fL N 80-97 Mean Corpuscular Hemoglobin 30 pg N 27-31 Mean Corpuscular HGB Conc 34 g/dL N 31-36 Red Cell Distribution Width 17 % High 10.5-15 Platelet Count 394 10^3/uL N 150-450 Mean Platelet Volume 7 um3 Low 7.4-10.4 Abs Neutrophils 2.7 10^3/uL N 1.5-7.7 Abs Lymphocytes 2.6 10^3/uL N 1.0-4.8 Abs Monocytes 0.6 10^3/uL N 0-0.8 Abs Eosinophils 0.3 10^3/uL N 0-0.6 Abs Basophils 0 10^3/uL N 0-0.2 Abs Nucleated RBC 0 10^3/uL N Granulocyte % 43.3 % N 38-83 Lymphocyte % 41.1 % N 25-47 Monocyte % 10.1 % High 1-9 Eosinophil % 4.9 % N 0-6 Basophil % 0.6 % N 0-2 Nucleated Red Blood Cells % 0.1 N Laboratory test 07/18/2017 [facility] Levetiracetam <2.0 Abnormal [address] (Keppra) g/mL [place], [place] [id number] [phone] Trileptal (Oxcarbazepine) 35 g/mL N 3 - 35 15 Inr/Protime 07/18/2017 [facility] Inr 0.92 N 0.89-1.[address] [place] [address] [phone] Laboratory test 07/18/2017 [facility] Partial 32.2 seconds N 26.0-36.[address] [place] [address] PTT [phone] Urinalysis 07/18/2017 [facility] Urine Color Yellow N Profile [address] [place] [address] [phone] Urine Appearance Cloudy N Urine Specific [place] 1.015 N 1.010-1.030 Urine pH 5.0 N 5-9 Urine Urobilinogen Negative N Negative Urine Ketones Negative N Negative Urine Protein Negative N Negative Urine Leukocytes Trace Abnormal Negative Urine Blood 1+ Abnormal Negative Urine Nitrite Negative N Negative Urine Bilirubin Negative N Negative Urine Glucose Negative N Negative Urine White Blood Cell Trace(0-5/hpf) N Absent Urine Red Blood Cell Trace(0-2/hpf) N Absent Urine Bacteria Absent N Absent Urine Squamous Epithelial Cell Present Abnormal Absent Comp Metabolic Panel 07/18/2017 [facility] Sodium 137 mmol/L N 133-[address] [place] [address] [phone] Potassium 3.8 mmol/L N 3.5-5.0 Chloride 103 mmol/L N 101-111 Co2 Carbon Dioxide 29 mmol/L N 22-32 Anion Gap 5 mmol/L N 2-11 Glucose 81 mg/dL N 70-100 Blood Urea Nitrogen 7 mg/dL N 6-24 Creatinine 0.60 mg/dL N 0.51-0.95 BUN/Creatinine Ratio 11.7 N 8-20 Calcium 9.9 mg/dL N 8.6-10.3 Total Protein 6.6 g/dL N 6.4-8.9 Albumin 4.5 g/dL N 3.2-5.2 Globulin 2.1 g/dL N 2-4 Albumin/Globulin Ratio 2.1 N 1-3 Total Bilirubin 0.20 mg/dL N 0.2-1.0 Alkaline Phosphatase 41 U/L N 34-104 Alt 13 U/L N 7-52 Ast 17 U/L N 13-39 Egfr Non- 113.8 N >60 Egfr 146.3 N >60 16 Urine Culture And 07/18/2017 [facility] Urine Culture SEE RESULT [address] [place] [address] [phone] Laboratory test 07/18/2017 [facility] Phosphorus 3.3 mg/dL N 2.5-[address]0 [place] [address] [phone] Magnesium 2.1 mg/dL N 1.9-2.7 Thyroxine 4.33 g/mL Low 6.09-12.23 TSH (Thyroid Stim [place]orm) 3.84 mcIU/mL N 0.34-5.60 Prolactin 9.4 ng/mL N 1.0-25.0 Vitamin D Total 25(Oh) 55.0 ng/mL High 30-50 CBC Auto Diff 06/26/2017 [facility] White Blood 6.6 10^3/uL N 3.5-10.[address] [place] [address] [phone] Red Blood Count 3.70 10^6/uL Low 4.0-5.4 Hemoglobin 10.7 g/dL Low 12.0-16.0 Hematocrit 32 % Low 35-47 Mean Corpuscular Volume 87 fL N 80-97 Mean Corpuscular Hemoglobin 29 pg N 27-31 Mean Corpuscular HGB Conc 33 g/dL N 31-36 Red Cell Distribution Width 15 % N 10.5-15 Platelet Count 294 10^3/uL N 150-450 Mean Platelet Volume 7 um3 Low 7.4-10.4 Abs Neutrophils 2.9 10^3/uL N 1.5-7.7 Abs Lymphocytes 2.8 10^3/uL N 1.0-4.8 Abs Monocytes 0.6 10^3/uL N 0-0.8 Abs Eosinophils 0.3 10^3/uL N 0-0.6 Abs Basophils 0 10^3/uL N 0-0.2 Abs Nucleated RBC 0 10^3/uL N Granulocyte % 43.9 % N 38-83 Lymphocyte % 42.5 % N 25-47 Monocyte % 8.8 % N 1-9 Eosinophil % 4.1 % N 0-6 Basophil % 0.7 % N 0-2 Nucleated Red Blood Cells % 0 N Inr/Protime 06/26/2017 [facility] Inr 0.92 N 0.89-1.[address] [place] [address] [phone] Laboratory test 06/26/2017 [facility] Lactic Acid 0.4 Low 0.5- 2.0 [address] mmol/[place] [address] [phone] Comp Metabolic 06/26/2017 [facility] Sodium 131 Low 133-[address] mmol/[place] [address] [phone] Chloride 102 mmol/L N 101-111 Co2 Carbon Dioxide 23 mmol/L N 22-32 Glucose 83 mg/dL N 70-100 Blood Urea Nitrogen 10 mg/dL N 6-24 Creatinine 0.49 mg/dL Low 0.51-0.95 BUN/Creatinine Ratio 20.4 High 8-20 Calcium 8.8 mg/dL N 8.6-10.3 Total Protein 6.0 g/dL Low 6.4-8.9 Albumin 4.0 g/dL N 3.2-5.2 Globulin 2.0 g/dL N 2-4 Albumin/Globulin Ratio 2.0 N 1-3 Total Bilirubin 0.20 mg/dL N 0.2-1.0 Alkaline Phosphatase 40 U/L N 34-104 Alt 10 U/L N 7-52 Egfr Non- 143.7 N >60 Egfr 184.8 N >60 19 Potassium 4.1 mmol/L N 3.5-5.0 Anion Gap 6 mmol/L N 2-11 Ast 19 U/L N 13-39 Laboratory test 06/26/2017 [facility] Magnesium 2.0 mg/dL N 1.9-2.[address] [place] [address] [phone] CBC Auto Diff 05/27/2017 [facility] White Blood 5.6 N 3.5- 10.[address] Count 10^3/[place] [address] [phone] Red Blood Count 3.87 10^6/uL Low 4.0-5.4 Hemoglobin 11.1 g/dL Low 12.0-16.0 Hematocrit 34 % Low 35-47 Mean Corpuscular Volume 87 fL N 80-97 Mean Corpuscular Hemoglobin 29 pg N 27-31 Mean Corpuscular HGB Conc 33 g/dL N 31-36 Red Cell Distribution Width 15 % N 10.5-15 Platelet Count 284 10^3/uL N 150-450 Mean Platelet Volume 8 um3 N 7.4-10.4 Abs Neutrophils 2.7 10^3/uL N 1.5-7.7 Abs Lymphocytes 2.0 10^3/uL N 1.0-4.8 Abs Monocytes 0.6 10^3/uL N 0-0.8 Abs Eosinophils 0.2 10^3/uL N 0-0.6 Abs Basophils 0 10^3/uL N 0-0.2 Abs Nucleated RBC 0 10^3/uL N Granulocyte % 49.1 % N 38-83 Lymphocyte % 35.5 % N 25-47 Monocyte % 10.1 % High 1-9 Eosinophil % 4.4 % N 0-6 Basophil % 0.9 % N 0-2 Nucleated Red Blood Cells % 0 N Comp Metabolic Panel 05/27/2017 [facility] Sodium 137 mmol/L N 133-145 [address] [place] [address] [phone] Potassium 3.8 mmol/L N 3.5-5.0 Chloride 107 mmol/L N 101-111 Co2 Carbon Dioxide 25 mmol/L N 22-32 Anion Gap 5 mmol/L N 2-11 Glucose 93 mg/dL N 70-100 Blood Urea Nitrogen 10 mg/dL N 6-24 Creatinine 0.52 mg/dL N 0.51-0.95 BUN/Creatinine Ratio 19.2 N 8-20 Calcium 9.2 mg/dL N 8.6-10.3 Total Protein 6.2 g/dL Low 6.4-8.9 Albumin 4.1 g/dL N 3.2-5.2 Globulin 2.1 g/dL N 2-4 Albumin/Globulin Ratio 2.0 N 1-3 Total Bilirubin 0.20 mg/dL N 0.2-1.0 Alkaline Phosphatase 45 U/L N 34-104 Alt 21 U/L N 7-52 Ast 24 U/L N 13-39 Egfr Non- 134.2 N >60 Egfr 172.6 N >60 20 Laboratory test 05/27/2017 [facility] Magnesium 2.0 mg/dL N 1.9-2.7 finding [address] [place] [address] [phone] Laboratory test 05/20/2017 [facility] Lactic Acid 1.0 mmol/L N 0.5-2.0 21 finding [address] [place] [address] [phone] CBC Auto Diff 05/20/2017 [facility] White Blood 7.4 N 3.5- 10.[address] Count 10^3/[place] [address] [phone] Red Blood Count 3.95 10^6/uL Low 4.0-5.4 Hemoglobin 11.6 g/dL Low 12.0-16.0 Hematocrit 34 % Low 35-47 Mean Corpuscular Volume 86 fL N 80-97 Mean Corpuscular Hemoglobin 29 pg N 27-31 Mean Corpuscular HGB Conc 34 g/dL N 31-36 Red Cell Distribution Width 14 % N 10.5-15 Platelet Count 283 10^3/uL N 150-450 Mean Platelet Volume 7 um3 Low 7.4-10.4 Abs Neutrophils 3.4 10^3/uL N 1.5-7.7 Abs Lymphocytes 2.9 10^3/uL N 1.0-4.8 Abs Monocytes 0.6 10^3/uL N 0-0.8 Abs Eosinophils 0.4 10^3/uL N 0-0.6 Abs Basophils 0.1 10^3/uL N 0-0.2 Abs Nucleated RBC 0.01 10^3/uL N Granulocyte % 45.5 % N 38-83 Lymphocyte % 39.6 % N 25-47 Monocyte % 8.2 % N 1-9 Eosinophil % 6.0 % N 0-6 Basophil % 0.7 % N 0-2 Nucleated Red Blood Cells % 0.1 N Comp Metabolic Panel 05/20/2017 [facility] Sodium 137 mmol/L N 133-[address] [place] [address] [phone] Potassium 3.6 mmol/L N 3.5-5.0 Chloride 106 mmol/L N 101-111 Co2 Carbon Dioxide 24 mmol/L N 22-32 Anion Gap 7 mmol/L N 2-11 Glucose 96 mg/dL N 70-100 Blood Urea Nitrogen 11 mg/dL N 6-24 Creatinine 0.58 mg/dL N 0.51-0.95 BUN/Creatinine Ratio 19.0 N 8-20 Calcium 9.3 mg/dL N 8.6-10.3 Total Protein 6.5 g/dL N 6.4-8.9 Albumin 4.3 g/dL N 3.2-5.2 Globulin 2.2 g/dL N 2-4 Albumin/Globulin Ratio 2.0 N 1-3 Total Bilirubin 0.20 mg/dL N 0.2-1.0 Alkaline Phosphatase 47 U/L N 34-104 Alt 13 U/L N 7-52 Ast 19 U/L N 13-39 Egfr Non- 118.3 N >60 Egfr 152.1 N >60 22 Laboratory test 05/20/2017 [facility] Magnesium 2.2 mg/dL N 1.9-2.[address] [place] [address] [phone] Carbamazepine (Tegretol) 2.0 g/mL Low 4.0-12.0 Inr/Protime 05/20/2017 [facility] Inr 0.90 N 0.89-1.[address] [place] [address] [phone] Laboratory test 05/20/2017 [facility] Levetiracetam 28.8 N 23 finding [address] [facility] (Keppra) g/[place] [address] [phone] CBC Auto Diff 05/05/2017 [facility] White Blood Count 6.8 N 3.5-10.[address] 10^3/uL [place] [id number] [phone] Red Blood Count 3.98 10^6/uL Low 4.0-5.4 Hemoglobin 10.9 g/dL Low 12.0-16.0 Hematocrit 34 % Low 35-47 Mean Corpuscular Volume 85 fL N 80-97 Mean Corpuscular Hemoglobin 28 pg N 27-31 Mean Corpuscular HGB Conc 32 g/dL N 31-36 Red Cell Distribution Width 14 % N 10.5-15 Platelet Count 221 10^3/uL N 150-450 Mean Platelet Volume 8 um3 N 7.4-10.4 Abs Neutrophils 3.7 10^3/uL N 1.5-7.7 Abs Lymphocytes 2.3 10^3/uL N 1.0-4.8 Abs Monocytes 0.5 10^3/uL N 0-0.8 Abs Eosinophils 0.3 10^3/uL N 0-0.6 Abs Basophils 0 10^3/uL N 0-0.2 Abs Nucleated RBC 0.02 10^3/uL N Granulocyte % 54.4 % N 38-83 Lymphocyte % 34.0 % N 25-47 Monocyte % 7.3 % N 1-9 Eosinophil % 3.8 % N 0-6 Basophil % 0.5 % N 0-2 Nucleated Red Blood Cells % 0.3 N Urinalysis Profile 05/05/2017 [facility] Urine Color Yellow N [address] [place] [address] [phone] Urine Appearance Cloudy N Urine Specific [place] 1.013 N 1.010-1.030 Urine pH 7.0 N 5-9 Urine Urobilinogen Negative N Negative Urine Ketones Negative N Negative Urine Protein Negative N Negative Urine Leukocytes Trace Abnormal Negative Urine Blood Negative N Negative * * Abnormal Negative 24 Urine Nitrite Negative N Negative Urine Bilirubin Negative N Negative Urine Glucose Negative N Negative Urine White Blood Cell Trace(0-5/hpf) N Absent Urine Red Blood Cell Absent N Absent Urine Bacteria 3+ Abnormal Absent Urine Squamous Epithelial Cell Present Abnormal Absent Comp Metabolic Panel 05/05/2017 [facility] Sodium 133 mmol/L N 133-[address] [place] [address] [phone] Potassium 3.7 mmol/L N 3.5-5.0 Chloride 103 mmol/L N 101-111 Co2 Carbon Dioxide 24 mmol/L N 22-32 Anion Gap 6 mmol/L N 2-11 Glucose 90 mg/dL N 70-100 Blood Urea Nitrogen 9 mg/dL N 6-24 Creatinine 0.50 mg/dL Low 0.51-0.95 BUN/Creatinine Ratio 18.0 N 8-20 Calcium 9.1 mg/dL N 8.6-10.3 Total Protein 6.1 g/dL Low 6.4-8.9 Albumin 4.0 g/dL N 3.2-5.2 Globulin 2.1 g/dL N 2-4 Albumin/Globulin Ratio 1.9 N 1-3 Total Bilirubin 0.20 mg/dL N 0.2-1.0 Alkaline Phosphatase 44 U/L N 34-104 Alt 12 U/L N 7-52 Ast 17 U/L N 13-39 Egfr Non- 140.4 N >60 Egfr 180.6 N >60 25 Laboratory test 05/05/2017 [facility] Magnesium 1.9 mg/dL N 1.9-2.[address] [place] [address] [phone] TSH (Thyroid Stim Horm) 1.80 mcIU/mL N 0.34-5.60 Urine Culture And 05/05/2017 [facility] Urine Culture SEE RESULT [address] [place] [address] [phone] Laboratory test 05/05/2017 [facility] Levetiracetam 36.5 N [address] (Keppra) g/mL [place], [place] [id number] [phone] Inr/Protime 04/29/2017 [facility] Inr 0.91 N 0.[address] -1.1 [place] [phone] CBC Auto Diff 04/29/2017 [facility] White Blood Count 9.2 N 3.5- [address] 10^3/uL 10.8 [place], [place] [id number] [phone] Red Blood Count 3.94 10^6/uL Low 4.0-5.4 Hemoglobin 11.2 g/dL Low 12.0-16.0 Hematocrit 34 % Low 35-47 Mean Corpuscular Volume 86 fL N 80-97 Mean Corpuscular Hemoglobin 29 pg N 27-31 Mean Corpuscular HGB Conc 33 g/dL N 31-36 Red Cell Distribution Width 15 % N 10.5-15 Platelet Count 237 10^3/uL N 150-450 Mean Platelet Volume 8 um3 N 7.4-10.4 Abs Neutrophils 5.4 10^3/uL N 1.5-7.7 Abs Lymphocytes 2.7 10^3/uL N 1.0-4.8 Abs Monocytes 0.7 10^3/uL N 0-0.8 Abs Eosinophils 0.3 10^3/uL N 0-0.6 Abs Basophils 0.1 10^3/uL N 0-0.2 Abs Nucleated RBC 0.02 10^3/uL N Granulocyte % 58.8 % N 38-83 Lymphocyte % 29.6 % N 25-47 Monocyte % 7.5 % N 1-9 Eosinophil % 3.2 % N 0-6 Basophil % 0.9 % N 0-2 Nucleated Red Blood Cells % 0.2 N Laboratory test 04/29/2017 [facility] Lactic Acid 1.4 mmol/L N 0.5-2.0 [address] [place] [address] [phone] Comp Metabolic 04/29/2017 [facility] Sodium 136 mmol/L N 133- [address] [place] [address] [phone] Potassium 3.6 mmol/L N 3.5-5.0 Chloride 105 mmol/L N 101-111 Co2 Carbon Dioxide 25 mmol/L N 22-32 Anion Gap 6 mmol/L N 2-11 Glucose 91 mg/dL N 70-100 Blood Urea Nitrogen 10 mg/dL N 6-24 Creatinine 0.55 mg/dL N 0.51-0.95 BUN/Creatinine Ratio 18.2 N 8-20 Calcium 9.5 mg/dL N 8.6-10.3 Total Protein 6.3 g/dL Low 6.4-8.9 Albumin 4.2 g/dL N 3.2-5.2 Globulin 2.1 g/dL N 2-4 Albumin/Globulin Ratio 2.0 N 1-3 Total Bilirubin 0.20 mg/dL N 0.2-1.0 Alkaline Phosphatase 48 U/L N 34-104 Alt 12 U/L N 7-52 Ast 18 U/L N 13-39 Egfr Non- 125.8 N >60 Egfr 161.8 N >60 29 Laboratory test 04/29/2017 [facility] Magnesium 2.0 mg/dL N 1.9-2.[address] [place] [address] [phone] Levetiracetam (Keppra) 66.4 g/mL Abnormal 30 Trileptal (Oxcarbazepine) 28 g/mL N 3 - 35 31 Urine Drug 04/27/2017 [facility] Amphetamine Ur None Detected N None Detect SCR ED & [address] [place] [address] [phone] Barbiturates Urine Screen None Detected N None Detect Benzodiazepine Urine Screen Presumptive Posi <SEE NOTE> Abnormal None Detect 32 Urine Cannabinoids Screen None Detected N None Detect Urine Cocaine Screen None Detected N None Detect Urine Opiates Screen Presumptive Posi <SEE NOTE> Abnormal None Detect 33 Urine Phencyclidine Screen None Detected N None Detect 34 Inr/Protime 04/27/2017 [facility] Inr 0.93 N 0.89-1.[address] [place] [address] [phone] Laboratory 04/27/2017 [facility] Levetiracetam 46.6 Abnormal 35 test finding [address] (Keppra) g/[place] [address] [phone] Trileptal (Oxcarbazepine) 37 g/mL Abnormal 3 - 35 36 Laboratory test 04/27/2017 [facility] Partial 31.1 seconds N 26.0-36.[address] [place] [address] PTT [phone] CBC Auto Diff 04/27/2017 [facility] White Blood 6.5 10^3/uL N 3.5-10.[address] [place] [address] [phone] Red Blood Count 4.16 10^6/uL N 4.0-5.4 Hemoglobin 11.7 g/dL Low 12.0-16.0 Hematocrit 36 % N 35-47 Mean Corpuscular Volume 86 fL N 80-97 Mean Corpuscular Hemoglobin 28 pg N 27-31 Mean Corpuscular HGB Conc 33 g/dL N 31-36 Red Cell Distribution Width 14 % N 10.5-15 Platelet Count 254 10^3/uL N 150-450 Mean Platelet Volume 8 um3 N 7.4-10.4 Abs Neutrophils 3.2 10^3/uL N 1.5-7.7 Abs Lymphocytes 2.1 10^3/uL N 1.0-4.8 Abs Monocytes 0.6 10^3/uL N 0-0.8 Abs Eosinophils 0.3 10^3/uL N 0-0.6 Abs Basophils 0.3 10^3/uL High 0-0.2 Abs Nucleated RBC 0.01 10^3/uL N Granulocyte % 48.8 % N 38-83 Lymphocyte % 32.7 % N 25-47 Monocyte % 9.5 % High 1-9 Eosinophil % 5.2 % N 0-6 Basophil % 3.8 % High 0-2 Nucleated Red Blood Cells % 0.1 N Laboratory test 04/27/2017 [facility] Lactic Acid 0.6 mmol/L N 0.5-2.0 [address] [place] [address] [phone] Urinalysis 04/27/2017 [facility] Urine Color Yellow N Profile [address] [place] [address] [phone] Urine Appearance Cloudy N Urine Specific [place] 1.018 N 1.010-1.030 Urine pH 7.0 N 5-9 Urine Urobilinogen Negative N Negative Urine Ketones Negative N Negative Urine Protein Negative N Negative Urine Leukocytes Trace Abnormal Negative Urine Blood Negative N Negative * * Abnormal Negative 38 Urine Nitrite Negative N Negative Urine Bilirubin Negative N Negative Urine Glucose Negative N Negative Urine White Blood Cell Trace(0-5/hpf) N Absent Urine Red Blood Cell Trace(0-2/hpf) N Absent Urine Bacteria Absent N Absent Urine Squamous Epithelial Cell Present Abnormal Absent Urine Amorphous Crystals Present Abnormal Absent Comp Metabolic Panel 04/27/2017 [facility] Sodium 135 mmol/L N 133-[address] [place] [address] [phone] Potassium 3.6 mmol/L N 3.5-5.0 Chloride 104 mmol/L N 101-111 Co2 Carbon Dioxide 25 mmol/L N 22-32 Anion Gap 6 mmol/L N 2-11 Glucose 88 mg/dL N 70-100 Blood Urea Nitrogen 10 mg/dL N 6-24 Creatinine 0.58 mg/dL N 0.51-0.95 BUN/Creatinine Ratio 17.2 N 8-20 Calcium 9.2 mg/dL N 8.6-10.3 Total Protein 6.3 g/dL Low 6.4-8.9 Albumin 4.3 g/dL N 3.2-5.2 Globulin 2.0 g/dL N 2-4 Albumin/Globulin Ratio 2.2 N 1-3 Total Bilirubin 0.20 mg/dL N 0.2-1.0 Alkaline Phosphatase 45 U/L N 34-104 Alt 12 U/L N 7-52 Ast 19 U/L N 13-39 Egfr Non- 118.3 N >60 Egfr 152.1 N >60 39 Urine Culture And 04/27/2017 [facility] Urine Culture SEE RESULT [address] [place] [address] [phone] Laboratory test 04/27/2017 [facility] Magnesium 2.1 mg/dL N 1.9-[address] .7 [place] [address] [phone] Creatine Kinase(CK) 51 U/L N 10-223 Alcohol < 10 mg/dL N <10 Comp Metabolic Panel 04/21/2017 [facility] Sodium 137 mmol/L N 133-[address] [place] [address] [phone] Potassium 3.3 mmol/L Low 3.5-5.0 Chloride 104 mmol/L N 101-111 Co2 Carbon Dioxide 25 mmol/L N 22-32 Anion Gap 8 mmol/L N 2-11 Glucose 87 mg/dL N 70-100 Blood Urea Nitrogen 12 mg/dL N 6-24 Creatinine 0.68 mg/dL N 0.51-0.95 BUN/Creatinine Ratio 17.6 N 8-20 Calcium 9.6 mg/dL N 8.6-10.3 Total Protein 6.7 g/dL N 6.4-8.9 Albumin 4.5 g/dL N 3.2-5.2 Globulin 2.2 g/dL N 2-4 Albumin/Globulin Ratio 2.0 N 1-3 Total Bilirubin 0.30 mg/dL N 0.2-1.0 Alkaline Phosphatase 46 U/L N 34-104 Alt 10 U/L N 7-52 Ast 17 U/L N 13-39 Egfr Non- 98.5 N >60 Egfr 126.6 N >60 41 Laboratory test 04/21/2017 [facility] Magnesium 2.2 mg/dL N 1.9-2.[address] [place] [address] [phone] Creatine Kinase(CK) 66 U/L N 10-223 C Reactive Protein 1.60 mg/L N < 5.00 42 HCG < 0.60 mIU/mL N 43 CBC Auto Diff 04/21/2017 [facility] White Blood 8.3 10^3/uL N 3.5-10.[address] [place] [address] [phone] Red Blood Count 4.34 10^6/uL N 4.0-5.4 Hemoglobin 12.2 g/dL N 12.0-16.0 Hematocrit 37 % N 35-47 Mean Corpuscular Volume 85 fL N 80-97 Mean Corpuscular Hemoglobin 28 pg N 27-31 Mean Corpuscular HGB Conc 33 g/dL N 31-36 Red Cell Distribution Width 14 % N 10.5-15 Platelet Count 273 10^3/uL N 150-450 Mean Platelet Volume 8 um3 N 7.4-10.4 Abs Neutrophils 5.3 10^3/uL N 1.5-7.7 Abs Lymphocytes 2.2 10^3/uL N 1.0-4.8 Abs Monocytes 0.5 10^3/uL N 0-0.8 Abs Eosinophils 0.4 10^3/uL N 0-0.6 Abs Basophils 0 10^3/uL N 0-0.2 Abs Nucleated RBC 0 10^3/uL N Granulocyte % 63.9 % N 38-83 Lymphocyte % 25.9 % N 25-47 Monocyte % 5.7 % N 1-9 Eosinophil % 4.5 % N 0-6 Basophil % 0 % N 0-2 Nucleated Red Blood Cells % 0 N Urinalysis Profile 04/21/2017 [facility] Urine Color Yellow N [address] [place] [address] [phone] Urine Appearance Cloudy N Urine Specific [place] 1.032 High 1.010-1.030 Urine pH 5.0 N 5-9 Urine Urobilinogen Negative N Negative Urine Ketones 1+ Abnormal Negative Urine Protein 1+(30 mg/dL) Abnormal Negative Urine Leukocytes Negative N Negative Urine Blood Negative N Negative Urine Nitrite Negative N Negative Urine Bilirubin Negative N Negative Urine Glucose Negative N Negative Urine White Blood Cell Trace(0-5/hpf) N Absent Urine Red Blood Cell Trace(0-2/hpf) N Absent Urine Bacteria Absent N Absent Urine Squamous Epithelial Cell Present Abnormal Absent Laboratory test 04/21/2017 [facility] Lactic Acid 1.0 mmol/L N 0.5-2.0 [address] [place] [address] [phone] Levetiracetam (Keppra) 35.0 g/mL N 45 Trileptal (Oxcarbazepine) 28 g/mL N 3 - 35 46 Laboratory test 03/19/2017 [facility] Clotest SEE RESULT [address] [place] [address] [phone] Laboratory test 11/23/2016 [facility] Trileptal 11 g/mL N 3 - [address] (Oxcarbazepine) [place] [address] [phone] Levetiracetam (Keppra) 63.6 g/mL Abnormal 49 Laboratory test 11/24/2015 [facility] Levetiracetam 21.7 g/mL N [address] (Keppra) [place], [place] [id number] [phone] Urinalysis 07/14/2015 [facility] Urine Color Yellow N Profile [address] [place] [address] [phone] Urine Appearance Cloudy N Urine Specific [place] 1.017 N 1.010-1.030 Urine pH 6.0 N 5-9 Urine Urobilinogen Negative N Negative Urine Ketones Negative N Negative Urine Protein Negative N Negative Urine Leukocytes 3+ Abnormal Negative Urine Blood 2+ Abnormal Negative Urine Nitrite Negative N Negative Urine Bilirubin Negative N Negative Urine Glucose Negative N Negative Urine White Blood Cell 3+(>20/hpf) Abnormal Absent Urine Red Blood Cell 3+(>10/hpf) Abnormal Absent Urine Bacteria 1+ Abnormal Absent Urine Squamous Epithelial Cell Present Abnormal Absent Laboratory test 07/14/2015 [facility] Urine Culture And SEE RESULT [address] [place] [address] [phone] Laboratory test 07/10/2015 [facility] Partial Thrombo 28.1 seconds N 26.0- finding DRIVE Time PTT 36.3 [place], [place] [address]259155 [phone] Laboratory test 07/10/2015 [facility] Lactic Acid 1.4 mmol/L N 0.5-[address] [place] [address] [phone] Laboratory test 07/10/2015 [facility] Urine Culture And SEE RESULT [address] [address] [phone] Blood Culture SEE RESULT BELOW 53 Laboratory test 07/10/2015 [facility] C Reactive 106.54 mg/L High < 5.[address] Protein [place], [place] [address] [phone] Urinalysis 07/10/2015 [facility] Urine Color Yellow N Profile [address] [place] [address] [phone] Urine Appearance Cloudy N Urine Specific [place] 1.017 N 1.010-1.030 Urine pH 5.0 N 5-9 Urine Urobilinogen Positive Abnormal Negative Urine Ketones Negative N Negative Urine Protein 1+(30 mg/dL) Abnormal Negative Urine Leukocytes 3+ Abnormal Negative Urine Blood Negative N Negative Urine Nitrite Negative N Negative Urine Bilirubin Negative N Negative Urine Glucose Negative N Negative Urine White Blood Cell 3+(>20/hpf) Abnormal Absent Urine Red Blood Cell 3+(>10/hpf) Abnormal Absent Urine Bacteria Absent N Absent Urine Squamous Epithelial Cell Present Abnormal Absent CBC Auto 07/10/2015 [facility] White Blood 13.4 10^3/uL High 4.8-10.[address] [place] [address] [phone] Red Blood Count 3.16 10^6/uL Low 4.0-5.4 Hemoglobin 8.7 g/dL Low 12.0-16.0 Hematocrit 27 % Low 35-47 Mean Corpuscular Volume 84 fL N 80-97 Mean Corpuscular Hemoglobin 28 pg N 27-31 Mean Corpuscular HGB Conc 33 g/dL N 31-36 Red Cell Distribution Width 19 % High 10.5-15 Platelet Count 421 10^3/uL N 150-450 Mean Platelet Volume 7 um3 Low 7.4-10.4 Abs Neutrophils 8.8 10^3/uL High 1.5-7.7 Abs Lymphocytes 3.4 10^3/uL N 1.0-4.8 Abs Monocytes 0.8 10^3/uL N 0-0.8 Abs Eosinophils 0.2 10^3/uL N 0-0.6 Abs Basophils 0.1 10^3/uL N 0-0.2 Abs Nucleated RBC 0.05 10^3/uL N Granulocyte % 65.9 % N 38-83 Lymphocyte % 25.2 % N 25-47 Monocyte % 6.3 % N 1-9 Eosinophil % 1.7 % N 0-6 Basophil % 0.9 % N 0-2 Nucleated Red Blood Cells % 0.4 N Comp Metabolic Panel 07/10/2015 [facility] Sodium 138 mmol/L N 133-[address] [place] [address] [phone] Potassium 2.9 mmol/L Low 3.5-5.0 Chloride 108 mmol/L N 101-111 Co2 Carbon Dioxide 23 mmol/L N 22-32 Anion Gap 7 mmol/L N 2-11 Glucose 98 mg/dL N 70-100 Blood Urea Nitrogen 5 mg/dL Low 6-24 Creatinine 0.47 mg/dL Low 0.51-0.95 BUN/Creatinine Ratio 10.6 N 8-20 Calcium 8.4 mg/dL Low 8.6-10.3 Total Protein 5.2 g/dL Low 6.4-8.9 Albumin 2.9 g/dL Low 3.2-5.2 Globulin 2.3 g/dL N 2-4 Albumin/Globulin Ratio 1.3 N 1-3 Total Bilirubin 0.20 mg/dL N 0.2-1.0 Alkaline Phosphatase 72 U/L N 34-104 Alt 12 U/L N 7-52 Ast 12 U/L Low 13-39 Egfr Non- 152.6 N >60 Egfr 196.3 N >60 55 Inr/Protime 07/10/2015 [facility] Inr 0.83 N 0.78-1.[address] [place] [address] [phone] Laboratory test 06/05/2015 [facility] Creatine 72 U/L N 10- [address] Kinase(CK) [place] [address] [phone] Troponin-I (TnI) 0.00 ng/mL N <0.03 56 B-Type Natriuretic Peptide BNP 104 pg/mL High 57 CBC Auto 06/05/2015 [facility] White Blood 13.4 10^3/uL High 4.8-10.[address] [place] [address] [phone] Red Blood Count 3.53 10^6/uL Low 4.0-5.4 Hemoglobin 9.0 g/dL Low 12.0-16.0 Hematocrit 29 % Low 35-47 Mean Corpuscular Volume 81 fL N 80-97 Mean Corpuscular Hemoglobin 25 pg Low 27-31 Mean Corpuscular HGB Conc 32 g/dL N 31-36 Red Cell Distribution Width 14 % N 10.5-15 Platelet Count 298 10^3/uL N 150-450 Mean Platelet Volume 7 um3 Low 7.4-10.4 Abs Neutrophils 9.8 10^3/uL High 1.5-7.7 Abs Lymphocytes 2.6 10^3/uL N 1.0-4.8 Abs Monocytes 0.8 10^3/uL N 0-0.8 Abs Eosinophils 0.1 10^3/uL N 0-0.6 Abs Basophils 0 10^3/uL N 0-0.2 Abs Nucleated RBC 0 10^3/uL N Granulocyte % 73.5 % N 38-83 Lymphocyte % 19.1 % Low 25-47 Monocyte % 6.3 % N 1-9 Eosinophil % 1.0 % N 0-6 Basophil % 0.1 % N 0-2 Nucleated Red Blood Cells % 0 N Laboratory test 06/05/2015 [facility] Lactic Acid 0.9 mmol/L N 0.5-2.[address] [place] [address] [phone] Inr/Protime 06/05/2015 [facility] Inr 0.86 N 0.78-1.[address] [place] [address] [phone] Laboratory test 06/05/2015 [facility] Partial 28.3 seconds N 26.0-36.[address] [place] [address] PTT [phone] Comp Metabolic 06/05/2015 [facility] Sodium 134 mmol/L N 133- [address] [place] [address] [phone] Potassium 3.1 mmol/L Low 3.5-5.0 Chloride 106 mmol/L N 101-111 Co2 Carbon Dioxide 21 mmol/L Low 22-32 Anion Gap 7 mmol/L N 2-11 Glucose 103 mg/dL High 70-100 Blood Urea Nitrogen 6 mg/dL N 6-24 Creatinine 0.37 mg/dL Low 0.51-0.95 BUN/Creatinine Ratio 16.2 N 8-20 Calcium 8.4 mg/dL Low 8.6-10.3 Total Protein 5.5 g/dL Low 6.4-8.9 Albumin 3.2 g/dL N 3.2-5.2 Globulin 2.3 g/dL N 2-4 Albumin/Globulin Ratio 1.4 N 1-3 Total Bilirubin 0.20 mg/dL N 0.2-1.0 Alkaline Phosphatase 75 U/L N 34-104 Alt 6 U/L Low 7-52 Ast 13 U/L N 13-39 Egfr Non- 201.1 N >60 Egfr 258.7 N >60 58 CBC No Diff 01/12/2015 [facility] White Blood 8.5 10^3/uL N 4.8-10.[address] Count [place], [place] [id number] [phone] Red Blood Count 4.10 10^6/uL N 4.0-5.4 Hemoglobin 12.6 g/dL N 12.0-16.0 Hematocrit 37 % N 35-47 Mean Corpuscular Volume 90 fL N 80-97 Mean Corpuscular Hemoglobin 31 pg N 27-31 Mean Corpuscular HGB Conc 34 g/dL N 31-36 Red Cell Distribution Width 15 % N 10.5-15 Platelet Count 245 10^3/uL N 150-450 Mean Platelet Volume 9 um3 N 7.4-10.4 Laboratory test 01/12/2015 [facility] Rubella Equivocal N Immune [address] Screen IU/mL [place], [place] [address] [phone] Type & Screen 01/12/2015 [facility] Patient O Positive N [address] [place] [address] [phone] Antibody Screen NEGATIVE N Laboratory test 01/12/2015 [facility] Hemoglobin A1c 4.9 % N Less than [address] 6.0 [place], [place] [address] [phone] Levetiracetam 16.8 g/mL N 62 Oxcarbazepine 19 g/mL N 3 - 35 63 Syphilis Screen 01/12/2015 [facility] Syphilis IgG TNP N Nonreactive [address] [place], [place] [address] [phone] RPR Nonreactive N Nonreactive RPR Titer TNP N Pediatric/Maternal YES N Laboratory 01/12/2015 [facility] Hepatitis B Nonreactive N Nonreactive [address] [place] [address] Antigen [phone] HIV 1/2 AB 01/12/2015 [facility] HIV 1 2 Nonreactive N Nonreactive [address] Antibody [place], [place] [id number] [phone] Laboratory 04/03/2014 [facility] Levetiracetam 8.5 g/mL Abnorma 66, test [address] l 67 finding [place], [place] [address] [phone] Oxcarbazepine 23 g/mL N 3 - 35 68 Comp Metabolic Panel 04/03/2014 [facility] Sodium 138 mmol/L N 133-[address] [place] [address] [phone] Potassium 4.0 mmol/L N 3.7-5.6 Chloride 106 mmol/L N 101-111 Co2 Carbon Dioxide 27 mmol/L N 22-32 Anion Gap 5 mmol/L N 2-11 Glucose 85 mg/dL N 70-100 Blood Urea Nitrogen 11 mg/dL N 6-24 Creatinine 0.55 mg/dL N 0.51-0.95 BUN/Creatinine Ratio 20.0 N 8-20 Calcium 9.3 mg/dL N 8.6-10.3 Total Protein 6.1 g/dL Low 6.4-8.9 Albumin 4.1 g/dL N 3.2-5.2 Globulin 2.0 g/dL N 2-4 Albumin/Globulin Ratio 2.1 N 1-3 Total Bilirubin 0.20 mg/dL N 0.2-1.0 Alkaline Phosphatase 66 U/L N 34-104 Alt 9 U/L N 7-52 Ast 13 U/L N 13-39 Egfr Non- 128.1 N >60 Egfr 164.7 N >60 69 Laboratory test finding 01/28/2014 [facility] Inr 0.96 0.85- 1.[address] [place] [address] [phone] Activated Partial Thrombo Time 32.4 seconds 24.0-36.1 Oncology CBC 01/28/2014 [facility] White Blood 4.9 10^3/uL 4.8-10.[address] [place] [address] [phone] Red Blood Count 4.32 10^6/uL 4.0-5.4 Hemoglobin [...] 0.7 % 0-2 Iron & Iron Binding 01/28/2014 [facility] Iron 32 g/dL Low 50-[address] [facility] [place] [address] [phone] Unsaturated Iron Binding 387 g/dL Total Iron Binding Capacity 419 g/dL 250-450 % Iron Saturation 8 % Low 15-55 Laboratory test 01/28/2014 [facility] Ferritin < 10.0 ng/mL Low 11-[address] [place] [address] [phone] Vitamin B12 319 pg/mL 180-914 70 Laboratory test 12/01/2013 [facility] Levetiracetam 30.3 g/mL [address] [place] [address] [phone] Oxcarbazepine 29 g/mL 3 - 35 72 CBC Auto Diff 10/20/2013 [facility] White Blood 4.9 10^3/uL 4.8-10.8 [address] [facility] [place] [address] [phone] Red Blood Count 4.38 10^6/uL 4.0-5.4 Hemoglobin [...] Red Blood Cells % 0.1 Inr/Protime 10/20/2013 [facility] Inr 1.09 High 0.85-1.[address] [place] [address] [phone] Laboratory test 10/20/2013 [facility] Activated 31.6 24.0- 36.1 [address] [place] [address] Thrombo Time [phone] Comp Metabolic 10/20/2013 [facility] Sodium 134 mmol/L 133- [address] [place] [address] [phone] Potassium 3.3 mmol/L Low 3.5-5.0 Chloride 102 [...] >60 Egfr 124.7 >60 75 Laboratory test 10/20/2013 [facility] Lactic Acid 1.0 mmol/L 0.5-1.[address] [place] [address] [phone] HIV 1 2 AB Self Referred Nonreactive Nonreactive 76 Blood Culture (SEE NOTE) 77 Laboratory test 10/20/2013 [facility] Serum Negative Negative [address] [place] [address] [phone] Blood Culture (SEE NOTE) 79 Laboratory 09/18/2013 [facility] Levetiracetam 49.6 Abnormal 80 test finding [address] g/[place] [address] [phone] CBC Auto Diff 2013 [facility] White Blood Count 6.[address] 10^3/uL -10 [place] [address] .8 [phone] Red Blood Count 4.59 10^6/uL 4.0-5.4 Hemoglobin [...] Red Blood Cells % 0 Inr/Protime 2013 [facility] Inr 0.97 0.87-0.[address] [place] [address] [phone] Comp Metabolic Panel 2013 [facility] Sodium 137 mmol/L 133-[address] [place] [address] [phone] Potassium 3.1 mmol/L Low 3.5-5.0 Chloride 104 [...] >60 Egfr 124.7 >60 81 Laboratory test 08/12/2013 [facility] Serum Negative Negative [address] [place] [address] [phone] CBC Auto Diff 08/12/2013 [facility] White Blood 6.4 10^3/uL 4.8-10.[address] [place] [address] [phone] Red Blood Count 4.72 10^6/uL 4.0-5.4 Hemoglobin [...] Blood Cells % 0.1 Cell Morphology 08/12/2013 [facility] Microcytosis 1+ [address] [place] [address] [phone] Comp Metabolic 08/12/2013 [facility] Sodium 139 mmol/L 133- 145 Panel [address] [place] [address] [phone] Potassium 4.1 mmol/L 3.5-5.0 Chloride 108 mmol/L [...] >60 Egfr 93.9 >60 83 Laboratory test 08/12/2013 [facility] TSH (Thyroid 1.87 0.34- 5.[address] Stimulating miu/[place] [address] [facility]) [phone] C Reactive Protein < 0.5 mg/dL Less than 0.5 Creatine Kinase 51 U/L 0-200 Levetiracetam 13.5 g/mL 84 Urinalysis 08/12/2013 [facility] Urine Color Yellow [address] [place] [address] [phone] Urine Appearance Turbid Urine Specific [place] 1.024 1.010-1.030 Urine Esterase Negative Negative Urine Nitrate Negative Negative Urine Urobilinogen Negative E.U./dL Negative Urine Protein Negative mg/dL Negative Urine pH 6.5 5-9 Urine Blood Negative Negative Urine Ketones Negative mg/dL Negative Urine Bilirubin Negative Negative Urine Glucose Negative mg/dL Negative Urinalysis 08/06/2013 [facility] Urine Color Yellow [address] [place] [address] [phone] Urine Appearance Clear Urine Specific [place] 1.016 1.010-1.030 Urine Esterase Negative Negative Urine Nitrate Negative Negative Urine Urobilinogen Negative E.U./dL Negative Urine Protein Negative mg/dL Negative Urine pH 8.0 5-9 Urine Blood Negative Negative Urine Ketones Negative mg/dL Negative Urine Bilirubin Negative Negative Urine Glucose Negative mg/dL Negative Laboratory test 08/06/2013 [facility] Levetiracetam 18.2 g/mL [address] [place] [address] [phone] Oxcarbazepine 6 g/mL 3 - 35 86 Oncology CBC 07/15/2013 [facility] White Blood 6.1 10^3/uL 4.8-10.8 Auto Diff [address] [place] [address] [phone] Red Blood Count 4.94 10^6/uL 4.0-5.4 Hemoglobin [...] Basophil % 0.9 % 0-2 Laboratory test 07/15/2013 [facility] Cell Morphology 1+ [address] [place] [address] [phone] CBC Auto Diff 06/07/2013 [facility] White Blood Count 6.6 4.8 -[address] 10^3/uL .8 [place] [address] [phone] Red Blood Count 4.92 10^6/uL 4.0-5.4 Hemoglobin [...] Nucleated RBC 0 10^3/uL Manual Differential 06/07/2013 [facility] Neutrophil % 48 % 38-83 [address] [place] [address] [phone] Lymphocytes % 41 % 25-47 Monocytes % 9 % 0-13 Eosinophils % 2 % 0-6 Microcytosis 1+ Iron & Iron Binding 06/07/2013 [facility] Iron 94 g/dL 28- 170 [address] [place] [address] [phone] Unsaturated Iron Binding 335 g/dL Total Iron Binding Capacity 429 g/dL 250-450 % Iron Saturation 22 % 15-55 Laboratory test 06/07/2013 [facility] Ferritin < 10 ng/mL Low 11-307 finding [address] [place] [address] [phone] Vitamin B12 508 pg/mL 180-914 Laboratory test 06/07/2013 [facility] Levetiracetam 25.5 g/mL 88 finding [address] [place] [address] [phone] 1 Because ethnic data is not always [...] <15 (or dialysis) 2 Copy Result to: CHARLES RADOMIR ([id number]) 3 Copy Result to: CHARLES RADOMIR ([id number]) 4 Copy Result to: CHARLES RADOMIR ([id number]) 5 Normal Range 180 to 914 Indeterminate Range 145 to 180 Deficient Range <145 6 Copy Result to: CHARLES RADOMIR ([id number]) 7 Copy Result to: CHARLES RADOMIR ([id number]) 8 ADDITIONAL INFORMATION This test was developed and its performance characteristics determined by [facility] in a manner consistent with CLIA requirements. This test has not been cleared or approved by the U.S. Food and Drug Administration. Test Performed by: [facility] - [address] [address] 9 ADDITIONAL INFORMATION This test was developed and its performance characteristics determined by [facility] in a manner consistent with CLIA requirements. This test has not been cleared or approved by the U.S. Food and Drug Administration. 10 ADDITIONAL INFORMATION This test was developed and its performance characteristics determined by [facility] in a manner consistent with CLIA requirements. This test has not been cleared or approved by the U.S. Food and Drug Administration. Test Performed by: [facility] - [place] [address] [address] 11 Copy Result to: MADHAVI SOTO ([id number]) 12 ADDITIONAL INFORMATION This test was developed and its performance characteristics determined by [facility] in a manner consistent with CLIA requirements. This test has not been cleared or approved by the U.S. Food and Drug Administration. Test Performed by: [facility] [employer] - [address] [address] 13 This test was developed and its performance characteristics determined by [employer]. It has not been cleared or approved by the Food and Drug Administration. Test Performed by: [employer] [address] [place] [address] 14 REFERENCE VALUE 12.0 - 46.0 ADDITIONAL INFORMATION This test was developed and its performance characteristics determined by [facility] in a manner consistent with CLIA requirements. This test has not been cleared or approved by the U.S. Food and Drug Administration. Test Performed by: [facility] [employer] - [address] [address] 15 ADDITIONAL INFORMATION This test was developed and its performance characteristics determined by [facility] in a manner consistent with CLIA requirements. This test has not been cleared or approved by the U.S. Food and Drug Administration. Test Performed by: [facility] - [address] [address] 16 Because ethnic data is not always [...] 17 SEE RESULT BELOW Name: SELENA DIANE : [address]: Jackson VALE Acct: [id number] Unit: [id number] AGE: 36 Location: LAB Re07/18/17 SEX: F Status: REG REF SPEC: [id number] TERRENCE: 07/18/17 [facility] DR: Jackson Louis [facility] REQ: [id number] RECD: 07/18/17 STATUS: ANDERSON AMEZQUITA DR: Madhavi Soto MD PC _ SOURCE: URINE SPDESC: ORDERED: Urine Culture Procedure Result Reported Site Urine Culture Final 07/19/17- 1439 ML No Growth (<1,000 CFU/mL) * ML - MAIN LAB ([facility]) . END OF REPORT * ML=Testing performed at Main Lab DEPARTMENT OF PATHOLOGY, [address] [place] [address] Navneet Drake M.D. Director [facility] # [id number] [facility] Severe Sepsis and Septic Shock Management [...] 5 Kidney failure <15 (or dialysis) 21 [facility] Severe Sepsis and Septic Shock [...] its performance characteristics determined by [facility] in a manner consistent with CLIA requirements. This test has not been cleared or approved by the U.S. Food and Drug Administration. Test Performed by: [facility] - [address] [address] 24 *Ascorbic acid is present which may [...] [address]: Jackie Snow MD Acct: [id number] Unit: [id number] AGE: 36 Location: ED Re05/05/17 SEX: F Status: DEP ER SPEC: [id number] TERRENCE: 05/05/[address]: Jackie Snow MD REQ: [id number] RECD: 05/05/17 STATUS: ANDERSON AMEZQUITA DR: Leatha Coles MD _ SOURCE: URINE [facility]: ORDERED: Urine Culture Procedure Result Reported Site Urine Culture Final 05/06/17- 1626 ML No growth of clinically significant organisms * ML - MAIN LAB ([facility]) . END OF REPORT * ML=Testing performed at Main Lab DEPARTMENT OF PATHOLOGY, [address] [place] [address] Navneet Drake M.D. Director [facility] # [id number] 27 REFERENCE VALUE 12.0 - 46.0 ADDITIONAL INFORMATION This test was developed and its performance characteristics determined by [facility] in a manner consistent with CLIA requirements. This test has not been cleared or approved by the U.S. Food and Drug Administration. Test Performed by: [facility] [place] [address] 28 [facility] Severe Sepsis and Septic Shock [...] its performance characteristics determined by [facility] in a manner consistent with CLIA requirements. This test has not been cleared or approved by the U.S. Food and Drug Administration. Test Performed by: [facility] - [address] [address] 31 ADDITIONAL INFORMATION This test was developed and its performance characteristics determined by [facility] in a manner consistent with CLIA requirements. This test has not been cleared or approved by the U.S. Food and Drug Administration. Test Performed by: [facility] - [address] [address] 32 Presumptive Positive Presumptive positive results are [...] its performance characteristics determined by [facility] in a manner consistent with CLIA requirements. This test has not been cleared or approved by the U.S. Food and Drug Administration. Test Performed by: [facility] - [address] [address] 36 ADDITIONAL INFORMATION This test was developed and its performance characteristics determined by [facility] in a manner consistent with CLIA requirements. This test has not been cleared or approved by the U.S. Food and Drug Administration. Test Performed by: [facility] - [address] [address] 37 [facility] Severe Sepsis and Septic Shock [...] [address]: Flory Lei MD Acct: [id number] Unit: [id number] AGE: 36 Location: ED Re04/27/17 SEX: F Status: DEP ER SPEC: [id number] TERRENCE: 04/27/[address]: Flory Lei MD REQ: [id number] RECD: 04/27/17 STATUS: [facility] DR: Leatha Coles MD _ SOURCE: URINE [facility]: ORDERED: Urine Culture Procedure Result Reported Site Urine Culture Final 04/30/17- 820 ML Organism 1 ESCHERICHIA COLI [place] Count 25-50,000 (Moderate) CFU/ML 1. ESCHERICHIA COLI [...] reporting. * ML - MAIN LAB ([facility]) . END OF REPORT * ML=Testing performed at Main Lab DEPARTMENT OF PATHOLOGY, [address] [place] [address] Navneet Drake M.D. Director [facility] # [id number] 41 Because ethnic data is not always [...] levels of up to 20 mIU/mL 44 [facility] Severe Sepsis and Septic Shock Management Bundle Measure requires all lactic acids initially measuring >2.0 mmol/L be repeated. 45 REFERENCE VALUE 12.0 - 46.0 ADDITIONAL INFORMATION This test was developed and its performance characteristics determined by [facility] in a manner consistent with CLIA requirements. This test has not been cleared or approved by the U.S. Food and Drug Administration. Test Performed by: [facility] [employer] - [address] [address] 46 ADDITIONAL INFORMATION This test was developed and its performance characteristics determined by [facility] in a manner consistent with CLIA requirements. This test has not been cleared or approved by the U.S. Food and Drug Administration. Test Performed by: [facility] - [address] [address] 47 SEE RESULT BELOW Name: SELENA DIANE : [address]: Jae George MD Acct: [id number] Unit: [id number] AGE: 36 Location: ENDO Re03/19/17 SEX: F Status: REG REF SPEC: [id number] TERRENCE: 03/19/17-1231 [facility] DR: Jae George MD REQ: [id number] RECD: 03/19/17 STATUS: ANDERSON AMEZQUITA DR: Leatha Soto MD PC _ SOURCE: GAS ANTRUM SPDESC: ORDERED: Clotest Procedure Result Reported Site Clotest Final 03/20/17714 ML Clotest Negative * ML - [facility] ([facility]) . END OF REPORT * ML=Testing performed at Main Lab DEPARTMENT OF PATHOLOGY, [address] [place] [address] Navneet Drake M.D. Director [facility] # [id number] 48 ADDITIONAL INFORMATION This test was developed and its performance characteristics determined by [facility] in a manner consistent with CLIA requirements. This test has not been cleared or approved by the U.S. Food and Drug Administration. Test Performed by: [facility] - [address] [address] Director Of Radiology: Matti Gould II, M.D., Ph.D. 49 REFERENCE VALUE 12.0 - 46.0 ADDITIONAL INFORMATION This test was developed and its performance characteristics determined by [facility] in a manner consistent with CLIA requirements. This test has not been cleared or approved by the U.S. Food and Drug Administration. Test Performed by: [facility] - [place] [address] Director Of Radiology: Matti Gould II, M.D., Ph.D. 50 REFERENCE VALUE 12.0 - 46.0 Test Performed by: [facility] [place] [address] Director Of Radiology: Matti Gould II, M.D., Ph.D. 51 SEE RESULT BELOW Name: ROXI,SELENA L : [address]: Matti Romero MD Acct: [id number] Unit: [id number] AGE: 34 Location: ED Re07/14/15 SEX: F Status: DEP ER SPEC: [id number] TERRENCE: 07/14/15-2019 [facility] DR: Matti Romero MD REQ: [id number] RECD: 07/14/15 STATUS: ANDERSON FRYE DR: Madhavi Soto MD Lucy Butcher MD _ SOURCE: URINE SPDESC: ORDERED: Urine Culture Procedure Result Verified Site Urine Culture Final 07/16/15- 0950 ML Organism 1 ESCHERICHIA COLI [place] Count >100,000 (Many) CFU/ML 1. ESCHERICHIA COLI [...] reporting. * ML - MAIN LAB ([facility]) . END OF REPORT * ML=Testing performed at Main Lab DEPARTMENT OF PATHOLOGY, [address] [place] [address] Navneet Drake M.D. Director [facility] # [id number] 52 SEE RESULT BELOW Name: SELENA DIANE : [address]: Matti Romero MD Acct: [id number] Unit: [id number] AGE: 34 Location: ED Re07/10/15 SEX: F Status: REG ER SPEC: [id number] TERRENCE: 07/10/15 [facility] DR: Matti Romero MD REQ: [id number] RECD: 07/10/15 STATUS: ANDERSON AMEZQUITA DR: Madhavi Soto MD Lucy Butcher MD _ SOURCE: URINE SPDESC: ORDERED: Urine Culture Procedure Result Verified Site Urine Culture Final 07/12/15- 942 ML Organism 1 ESCHERICHIA COLI [place] Count >100,000 (Many) CFU/ML 1. ESCHERICHIA COLI [...] performed at Main Lab DEPARTMENT OF PATHOLOGY, [address] [place] [address] Navneet Drake M.D. Director [facility] # [id number] 53 SEE RESULT BELOW Name: SELENA DIANE : [address]: Matti Romero MD Acct: [id number] Unit: [id number] AGE: 34 Location: ED Re07/10/15 SEX: F Status: REG ER SPEC: [id number] TERRENCE: 07/10/15 [facility] DR: Matti Romero MD REQ: [id number] RECD: 07/10/15 STATUS: ANDERSON AMEZQUITA DR: Madhavi [...] performed at Main Lab DEPARTMENT OF PATHOLOGY, [address] [place] [address] Navneet Drake M.D. Director [facility] # [id number] 54 Acute inflammation: >10.00 55 Because ethnic [...] 0.03 ng/mL Not supportive of diagnosis of VA 0.03 - 0.50 ng/mL Indeterminate: suggest serial studies if clinically indicated. Greater than 0.5 ng/mL Consistent with diagnosis of VA 57 >100 to <200 pg/mL: likely compensated [...] also fax results to Dr. Andriy Albrecht [phone] ~~please also fax results to Dr. Andriy Albrecht [phone] please also fax results to Dr. Andriy Albrecht [phone] please also fax results to Dr. Andriy Albrecht [phone] please also fax results to Dr. Andriy Albrecht [phone] please also fax results to Dr. Andriy Albrecht [phone] 61 Therapeutic target for the treatment of diabetes Mellitus patients is <7% HBA1C, and in selective patients <6.0%.Please refer to [place] [employer] Diabetic care guidelines for further information. 62 REFERENCE VALUE 12.0 - 46.0 Test Performed by: [place] [address] Director Of Radiology: Matti Gould II, M.D., Ph.D. 63 Test Performed by: [place] [address] Director Of Radiology: Matti Gould II, M.D., Ph.D. 64 please also fax results to Dr. Andriy Albrecht [phone] YES 65 It is recognized that currently [...] Chemiluminescence Microparticle Immunoassay on the Siemens Advia Frevvoaur CP. Values obtained with different methods or kits cannot be used interchangeably.The diagnostic specificity of the ADVIA Centaur 1/O/2 Enhanced assay in the low risk population was 99.90% (6052/6058) with a 95% confidence interval of 99.78 to 99.96%. 66 draw in am, prior to first dose. 67 -- REFERENCE VALUE -- 12.0 - 46.0 Test Performed by: [place] [address] Director Of Radiology: Stevo Cuba III, M.D. 68 Test Performed by: [place] [address] Director Of Radiology: Stevo Cuba III, M.D. 69 Because ethnic [...] -- 12.0 - 46.0 Test Performed by: [place] [address] Director Of Radiology: Stevo Cuba III, M.D. 72 Test Performed by: [place] [address] Director Of Radiology: Stevo Cuba III, M.D. 73 Please note [...] 99.78 to 99.96%. 77 RUN DATE: 10/25/13 [facility] LAB LIVE PAGE 1 RUN TIME: [address] [place] [address] Specimen Inquiry Name: ROXI,SELENA L : [address]: Nathen Green Acct: [id number] Unit: [id number] AGE: 33 Location: ED Re10/20/13 SEX: F Status: DEP ER SPEC: [id number] TERRENCE: 10/20/[address]: Yvette CHOWDHURY REQ: [id number] RECD: 10/20/13 STATUS: ANDERSON AMEZQUITA DR: [facility] Madhavi Soto MD PC Lucy Butcher MD _ SOURCE: BLOOD,VENO SPDES: ORDERED: Blood Cult Procedure Result Verified Site Aerobic Culture Bottle Final 10/25/13- 1206 ML No Growth Day 5 Anaerobic Culture Bottle Final 10/25/13- 1206 ML No Growth Day 5 END OF REPORT * ML=Testing performed at Main Lab DEPARTMENT OF PATHOLOGY, [facility] [employer] [place], [place] [address] Navneet Drake M.D. Director [facility] Permit #[id number] 78 This test detects intact HCG only and is indicated for the early detection of . 79 RUN DATE: 10/25/13 [facility] LAB LIVE PAGE 1 RUN TIME: [address] [facility] [email or web address] [place], [place] [address] Specimen Inquiry Name: SELENA DIANE : [address]: Nathen Green Acct: [id number] Unit: [id number] AGE: 33 Location: ED Re10/20/13 SEX: F Status: DEP ER SPEC: [id number] TERRENCE: 10/20/13-1209 [facility] DR: Yvette CHOWDHURY REQ: [id number] RECD: 10/20/131213 STATUS: ANDERSON AMEZQUITA DR: [facility] Madhavi Butcher MD _ SOURCE: BLOOD,VENO SPDESC: ORDERED: Blood Cult Procedure Result Verified Site Aerobic Culture Bottle Final 10/25/13- 1213 ML No Growth Day 5 Anaerobic Culture Bottle Final 10/25/13- 1213 ML No Growth Day 5 END OF REPORT * ML=Testing performed at Main Lab DEPARTMENT OF PATHOLOGY, [address] [place] [address] Navneet Drake M.D. Director [facility] Permit #[id number] 80 -- REFERENCE VALUE -- 12.0 - 46.0 Test Performed by: [address] [address] Director Of Radiology: Stevo Cuba III, M.D. 81 Because ethnic [...] -- 12.0 - 46.0 Test Performed by: [place] [address] Director Of Radiology: Stevo Cuba III, M.D. 85 -- REFERENCE VALUE -- 12.0 - 46.0 Test Performed by: [place] [address] Director Of Radiology: Stevo Cuba III, M.D. 86 Test Performed by: [address] [address] Director Of Radiology: Stevo Cuba III, M.D. 87 @07/15/13 1121: Cell Morphology added. RFLXG=RBC MORPH. 88 -- REFERENCE VALUE -- 12.0 - 46.0 Test Performed by: [address] [address] Director Of Radiology: Stevo Cuba III, M.D. Procedures Date Code Description Status 05/09/2018 58618 EEG Monitoring Computer Completed 04/29/2018 00169 Neurostimulator Pulse Generator Analysis Simple Completed W/Reprogramming 04/11/2018 [id number] Mammogram Completed 03/05/2018 04929 Neurostimulator Pulse Generator Analysis Simple Completed W/Reprogramming 10/31/2017 74490 Neurostimulator Pulse Generator Analysis Simple Completed W/Reprogramming 10/08/2017 18763 Neurostimulator Pulse Generator Analysis Simple Completed W/Reprogramming 09/18/2017 95618 Neurostimulator Pulse Generator Analysis Simple Completed W/Reprogramming 09/04/2017 48754 Neurostimulator Pulse Generator Analysis Simple Completed W/Reprogramming 08/21/2017 89878 Neurostimulator Pulse Generator Cranial Nerve First Completed Hour 07/31/2017 01636 EEG Monitoring Computer Completed 04/11/2017 43349 EEG Monitoring & Video Recording Completed 04/10/2017 86735 EEG Monitoring & Video Recording Completed 04/09/2017 08275 EEG Monitoring & Video Recording Completed 04/08/2017 93376 EEG Monitoring & Video Recording Completed 04/07/2017 88727 EEG Monitoring & Video Recording Completed 04/06/2017 38768 EEG Monitoring & Video Recording Completed 02/06/2017 89009 EEG Monitoring Computer Completed 11/08/2016 76716 ECHO Transthorasic Realtime 2D W Doppler & Color Flow Completed Hosp Encounters Type Date Location Provider Dx Diagnosis Office Visit 08/14/2018 Neurohospitalist Julissa Malik G40.219 Local-rel 11:00a [facility]le [facility] epi w cmplx part seiz, ntrct, w/o stat epi R63.4 Abnormal weight loss E03.9 Hypothyroidism, unspecified F41.9 Anxiety disorder, unspecified Office Visit 07/31/2018 8:00a [facility] Ezequiel Malik G40.219 Local- rel 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 F41.9 Anxiety disorder, unspecified Z96.89 Presence of other specified functional implants Office Visit 04/05/2018 Neurohospitalist Leatha Coles, G40.219 Local-rel 2:00p Clinic MD rosana hauser cmplx part seiz, ntrct, w/o stat epi Z96.89 Presence of other specified functional implants Office Visit 03/05/2018 Neurohospitalist Leatha Coles, G40.219 Local-rel 3:00p Clinic MD rosana hauser cmplx part seiz, ntrct, w/o stat epi 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 F41.9 Anxiety disorder, unspecified Office Visit 12/04/2017 Neurohospitalist Leatha Coles, G40.219 Local-rel 2:30p Clinic MD rosana hauser cmplx part seiz, ntrct, w/o stat epi 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 F41.9 Anxiety disorder, unspecified R63.4 Abnormal weight loss Office Visit 10/31/2017 Neurohospitalist Leatha Coles, G40.219 Local-rel 9:30a Clinic MD rosana hauser cmplx part seiz, ntrct, w/o stat epi 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 F41.9 Anxiety disorder, unspecified Office Visit 10/08/2017 Neurohospitalist Leatha Coles, G40.219 Local-rel 8:30a Clinic MD rosana hauser cmplx part seiz, ntrct, w/o stat epi 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 F41.9 Anxiety disorder, unspecified Office Visit 09/18/2017 Neurohospitalist Leatha Coles, G40.219 Local-rel 1:30p Clinic MD rosana hauser cmplx part seiz, ntrct, w/o stat epi G43.109 Migraine with aura, not intractable, w/o status migrainosus 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 F41.9 Anxiety disorder, unspecified Office Visit 09/04/2017 Neurohospitalist Leatha Coles, H53.34 Suppression of 8:30a Clinic binocular vision G40.219 Local-rel symptc epi w cmplx part seiz, ntrct, w/o stat epi Office Visit 08/21/2017 Neurohospitalist Leatha Coles, G40.219 Local-rel 8:30a Clinic MD rosana cruz w cmplx part seiz, ntrct, w/o stat epi R11.0 Nausea 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 F41.9 Anxiety disorder, unspecified Office Visit 07/24/2017 [facility] Leatha Coles, G40.219 Local-rel 11:00a Clinic MD rosana cruz w cmplx part seiz, ntrct, w/o stat epi 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 F41.9 Anxiety disorder, unspecified 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 Office Visit 06/25/2017 [facility] Leatha Coles, G40.219 Local-rel 9:00a Clinic MD rosana cruz w cmplx part seiz, ntrct, w/o stat epi 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 F41.9 Anxiety disorder, unspecified Office Visit 05/21/2017 2:00p [facility] Leatha Coles, G40.219 Local-rel symptc [facility] MD cruz w cmplx part seiz, ntrct, w/o stat epi 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 Z79.899 Other [facility] (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 F41.9 Anxiety disorder, unspecified [facility] G[facility].219 Local-rel symptc [facility] w cmplx part seiz, ntrct, w/o stat epi 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 F41.9 Anxiety disorder, unspecified Office Visit 04/12/2017 [facility] Leatha Coles, G40.219 Local-rel 11:16a Clinic MD rosana cruz w cmplx part seiz, ntrct, w/o stat epi Office Visit 04/11/2017 [facility] Leatha Coles, G40.219 Local-rel 11:16a Clinic MD pateltc epi w cmplx part seiz, ntrct, w/o stat epi Office Visit 04/10/2017 [facility] Leatha Coles, G40.219 Local-rel 11:15a Clinic MD pateltc anthony w cmplx part seiz, ntrct, w/o stat epi Office Visit 04/09/2017 [facility] Leatha Coles, G40.219 Local-rel 11:15a Clinic MD pateltc anthony w cmplx part seiz, ntrct, w/o stat epi Office Visit 04/08/2017 [facility] Leatha Coles, G40.219 Local-rel 11:14a Clinic MD rosana cruz w cmplx part seiz, ntrct, w/o stat epi Office Visit 04/07/2017 [facility] Leatha Coles, G40.219 Local-rel 11:14a Clinic MD pateltc anthony w cmplx part seiz, ntrct, w/o stat epi Office Visit 04/06/2017 [facility] Leatha Coles, G40.219 Local-rel 11:11a Clinic MD rosana cruz w cmplx part seiz, ntrct, w/o stat epi 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 Office Visit 03/28/2017 12:45p [facility] Leatha Coles, G40.219 Local-rel symptc [facility] MD anthony hauser cmplx part seiz, ntrct, w/o stat epi F41.9 Anxiety disorder, unspecified Office Visit 02/27/2017 10:30a [facility] Leatha Coles, G40.219 Local-rel symptc [facility] MD cruz w cmplx part seiz, ntrct, w/o stat epi F41.9 Anxiety disorder, unspecified 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 epi w cmplx part seiz, ntrct, w/o stat epi Office Visit 10/25/2016 [facility] Steve R56.9 Unspecified 9:30a [facility] convulsions Hospitalists dexter, LUCIANA Q27.30 Arteriovenous malformation, site unspecified Office 10/24/2016 [facility] Ezeqiuel Malik G40.219 Local-rel symptc Visit 1:12p Clinic Chele Henderson epi w cmplx part seiz, ntrct, w/o stat epi Office 10/23/2016 [facility] Ezequiel Malik G40.219 Local-rel symptc Visit 1:08p Clinic Chele Henderson epi w cmplx part seiz, ntrct, w/o stat epi Office 10/23/2016 [facility] Italo Q27.30 Arteriovenous Visit 9:29a [facility] [place], malformation, N.P. 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 Epilepsy W/Intractable Epilepsy V22.2 State Incidental Normal 784.0 Headache Office Visit 04/02/2014 Luz Butcher, 345.41 Local-Related 3:45p Neurologic M.D. Epilepsy [facility] W/Intractable Epilepsy 784.0 Headache Office Visit 12/15/2013 1:45p [facility] Lucy Butcher, 345.11 Epilepsy [facility] M.D. Convulsive Intractable V15.29 Personal History Of Surgery To Other Organs Office Visit 10/13/2013 11:15a [facility] Lucy Butcher, 345.91 Epilepsy Unspec [facility] M.D. W/ Intractable Office Visit 08/01/2013 2:00p [facility] Lucy Butcher, 345.91 Epilepsy Unspec [facility] M.D. W/ Intractable Office Visit 04/23/2013 2:00p [facility] Lucy Butcher, 345.90 Epilepsy Unspec [facility] M.D. W/O Intractable Office Visit 12/25/2012 2:15p [facility] Lucy Butcher, 345.41 Local-Related [facility] M.D. Epilepsy W/Intractable Epilepsy V22.2 State Incidental Normal Office Visit 08/21/2012 4:00p [facility] Lucy Butcher, 345.91 Epilepsy Unspec [facility] M.D. W/ Intractable Plan of Treatment Future Appointment(s):02/17/2019 10:45 am - Nathen Ortega M.D. at [facility]09/27/2018 - Nathen Ortega M.D.G40.219 Localization-related (focal) (partial) symptomatic epilepsyFollow up:Follow up in 6 weeks, ok to see at lunch, need 30-45 minR63.4 Abnormal weight lossE03.9 Hypothyroidism, fklgbgykywhY23.89 Presence of other specified functional implants
[2018-11-17] MEDS: NS 0.9% 1000 ML* 1,000 ML IV ONE (09:59)
--- NOTE | 2018-11-17 10:08 | ED ---
Neurological HPI - HPI Summary HPI Summary: The patient is a 38 y/o F arriving by ambulance [facility] with a chief complaint of grand mal seizure at 0920 this morning. She was riding as a passenger in a car when she felt like she was going to have a seizure. When EMS arrived on the scene, the patient was verbal; when they started to take her vitals, she began to convulse, which lasted for 4-5 minutes,. While sitting in the stretcher, she had LOC with left-sided contractions, whole body shaking, and she also lifted and contracted her right hand during the episode. With hx of epilepsy, she has a vagal nerve stimulator (placed at [facility] in January 2018), which was used to no relief. In the ambulance, she was administered one dose of 5mg Versed. In the ED, she is postictal and conscious. She states that she sees Dr. Ortega, who has been managing her seizures with Depakote; she reports taking her medication this morning. She denies changes in sleeping patterns. - History of Current Complaint Chief Complaint: EDSeizure Stated Complaint: SEIZURES Time Seen by Provider: 11/17/18 09:32 Hx Obtained From: Patient Hx Last Menstrual Period: non Onset/Duration: Sudden Onset, Started minutes ago - at 0920 this morning, Resolved Timing: Sudden Onset Onset Severity: Moderate Current Severity: Mild Seizure Severity: Moderate Number of Seizures: 1 - witness by EMS, lasting 4-5 minutes Pain Intensity: 0 Pain Scale Used: 0-10 Numeric Character: Other: - LOC and involuntary muscle movements Seizure Character: Total-Clonic Aggravating: Nothing Alleviating: Nothing - vagal nerve stimulator used to no relief Associated Signs and Symptoms: Positive: Loss of Consciousness, Seizure - visual aura, contraction of left side and right hand, whole body shaking Related Hx: Seizure - Additional Pertinent History Primary Care Physician: [id number] - Allergy/Home Medications Allergies/Adverse Reactions: Allergies Allergy/AdvReac Type Severity Reaction Status Date / Time bee venom protein (honey bee) Allergy Hives Verified 11/17/18 09:40 cephalexin [From Keflex] Allergy Hives Verified 11/17/18 09:40 morphine Allergy Hives Verified 11/17/18 09:40 mushroom Allergy Hives Verified 11/17/18 09:40 Sulfa (Sulfonamide Allergy Rash Verified 11/17/18 09:40 Antibiotics) enviromental Allergy Eyes Uncoded 11/17/18 09:40 Itchy/Swollen/Red/Watery PMH/Surg Hx/FS Hx/Imm Hx Endocrine/Hematology History: Reports: Hx Thyroid Disease, Hx Anemia - IV iron tx Denies: Hx Anticoagulant Therapy, Hx Diabetes Cardiovascular History: Denies: Hx Congestive Heart Failure, Hx Hypertension, Hx Pacemaker/ICD Comment Only: Other Cardiovascular Problems/Disorders - Arteriovenous malformation - Sx repair in 2008. Right atrial enlargement. 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 RT TEMPORAL LOBE IN 2008 [place] (removed scar tissue). 5 CSECTIONS. VNM simulater.07/2017 Hx Anesthesia Reactions: No - Immunization History Date of Tetanus Vaccine: unk Date of Influenza Vaccine: fall 2017 Infectious Disease History: No Infectious Disease History: Denies: Hx Hepatitis, Hx Human Immunodeficiency Virus (HIV), Traveled Outside the [place] in Last 30 Days - Family History Known Family History: Positive: Cardiac Disease, Hypertension, Other - cancer; denies AVM in the family Negative: Diabetes - Social History Alcohol Use: None Hx Substance Use: No Substance Use Type: Reports: Marijuana Substance Use Comment - Amount & Last Used: its been a while Hx Tobacco Use: Yes Smoking Status (MU): Former Smoker Have You Smoked in the Last Year: Yes - had of close relative on 2016 so smoked to cope Review of Systems Negative: Fever, Chills Negative: Erythema Negative: Sore Throat Negative: Chest Pain Negative: Shortness Of Breath, Cough Negative: Abdominal Pain, Vomiting, Nausea Negative: dysuria, hematuria Negative: Myalgia, Edema Negative: Rash Neurological: Other - POSITIVE: grand mal seizure-activity including visual aura with LOC, contraction of left side and right hand, and whole body shaking; NEGATIVE: dizziness, changes in sleep patterns All Other Systems Reviewed And Are Negative: Yes Physical Exam - Summary Physical Exam Summary: Constitutional: Well-developed, Well-nourished, Alert but drowsy. (-) Distressed Skin: Warm, Dry HENT: Normocephalic; Atraumatic Eyes: Conjunctiva normal Neck: Musculoskeletal ROM normal neck. (-) JVD, (-) Stridor, (-) Tracheal deviation Cardio: Rhythm regular, rate tachycardic, Heart sounds normal; Intact distal pulses; The pedal pulses are 2+ and symmetric. Radial pulses are 2+ and symmetric. (-) Murmur Pulmonary/Chest wall: Effort normal. (-) Respiratory distress, (-) Wheezes, (-) Rales Abd: Soft, (-) epigastric tenderness, (-) Distension, (-) Guarding, (-) Rebound Musculoskeletal: (-) Edema Lymph: (-) Cervical adenopathy Neuro: Alert but drowsy, Oriented x3, emerging from seizure, states she took Depakote this morning Psych: Mood and affect Normal Triage Information Reviewed: Yes Vital Signs On Initial Exam: Initial Vitals Temp Pulse Resp BP Pulse Ox 98.3 F 107 14 112/75 100 11/17/18 09:38 11/17/18 09:38 11/17/18 09:38 11/17/18 09:38 11/17/18 09:38 Vital Signs Reviewed: Yes Diagnostics - Vital Signs Vital Signs Temp Pulse Resp BP Pulse Ox 11/17/18 09:59 96 11/17/18 09:48 126 138/93 100 11/17/18 09:47 126 98 11/17/18 09:38 98.3 F 107 14 112/75 100 - Laboratory Result Diagrams: 11/17/18 10:25 11/17/18 10:25 Lab Statement: Any lab studies that have been ordered have been reviewed, and results considered in the medical decision making process. - Radiology CXR Radiology Interpretation Completed By: Radiologist Summary of Radiographic Findings: No radiographic evidence for acute cardiopulmonary abnormality on this portable chest x-ray. ED physician has reviewed this report. - EKG 10:01 Cardiac Rate: Tachycardia - 105 BPM EKG Rhythm: Sinus Tachycardia Summary of EKG Findings: No STEMI. Re-Evaluation - Re-Evaluation First Eval Re-Evaluation Time: 11:10 Change: Improved Comment: We discussed discharge home and follow up with Dr. Ortega. Course/Dx - Course Course Of Treatment: The patient is a 38 y/o F arriving by ambulance [facility] with a chief complaint of grand mal seizure at 0920 this morning. When EMS arrived on the scene, the patient was verbal; when they started to take her vitals, she began to convulse, which lasted for 4-5 minutes. While sitting in the stretcher , she had LOC with left-sided and right hand contractions, and whole body shaking. With hx of epilepsy, she has a vagal nerve stimulator (placed at [facility] in January 2018), which was used to no relief. In the ambulance, she was administered one dose of 5mg Versed. In the ED, she is postictal and conscious. She states that she sees Dr. Ortega, who has been managing her seizures with Depakote; she reports taking her medication this morning. She denies changes in sleeping patterns. Upon physical exam, the patient exhibits drowsiness as she emerges from the seizure with tachycardia; she took her Depakote this morning. In the ED course, she was administered Ns, and we replaced her magnesium once while she was here as blood work reveals decreased magnesium and elevated lactic acid of 2.5. EKG reveals sinus tachycardia. CXR is negative. She is diagnosed with breakthrough seizure. She is discharged home with education materials for epilepsy and follow up with Dr. Ortega, neurology, in 2-3 days. She agrees with this plan and understands the need for return to the ED for any changing or worsening symptoms. - Diagnoses Provider Diagnoses: Breakthrough seizure Discharge - Sign-Out/Discharge Documenting (check all that apply): Patient Departure - Patient will be discharged home. - Discharge Plan Condition: Stable Disposition: HOME Patient Education Materials: Epilepsy (ED) Referrals: Yoni Ortega MD [Medical Doctor] - 3 Days Madhavi Mayorga MD [Primary Care Provider] - 3 Days Additional Instructions: Follow up with Dr. Ortega in 2-3 days. Follow up with your primary care provider as needed. RETURN TO THE EMERGENCY DEPARTMENT FOR ANY CHANGING OR WORSENING SYMPTOMS. - Billing Disposition and Condition Condition: STABLE Disposition: Home - Attestation Statements Document Initiated by Scribe: Yes Documenting Scribe: Milla Lion Provider For Whom Elle is Documenting (Include Credential): Dr. Dylon Dean MD Scribe Attestation: I, Milla Lion, scribed for Dr. Dylon Dean MD on 11/17/18 at 1111. Scribe Documentation Reviewed: Yes Provider Attestation: The documentation as recorded by the Milla weller accurately reflects the service I personally performed and the decisions made by me, Dr. Dylon Dean MD Status of Scribe Document: Viewed
[2018-11-17 10:42] LABS: ABS Basophils 0 10^3/ul (0-0.2); ABS Eosinophils 0.1 10^3/ul (0-0.6); ABS Lymphocytes 1.3 10^3/ul (1.0-4.8); ABS Monocytes 0.5 10^3/ul (0-0.8); ABS Nucleated RBC 0 10^3/ul; Eosinophil % 1.9 %; Hematocrit 37 % (35-47); Hemoglobin 12.3 g/dl (12.0-16.0); Lymphocyte % 34.1 %; Mean Corpuscular HGB Conc 34 g/dl (31-36); Mean Corpuscular Hemoglobin 30 pg (27-31); Mean Corpuscular Volume 88 fL (80-97); Mean Platelet Volume 7.7 fL (7.4-10.4); Nucleated Red Blood Cells % 0.1; Platelet Count 187 10^3/ul (150-450); Red Blood Count 4.15 10^6/ul (4.00-5.40); Red Cell Distribution Width 14 % (10.5-15); White Blood Count 3.9 10^3/ul (3.5-10.8)
[2018-11-17 10:48] LABS: INR 0.98 (0.77-1.02)
[2018-11-17 10:53] LABS: Albumin/Globulin Ratio 2.2 (1-3); BUN/Creatinine Ratio 13.3 (8-20); Calcium 8.7 mg/dL (8.6-10.3); EGFR Non-African American 112.5 (>60); Globulin 1.8 g/dL (2-4); Magnesium 1.8 mg/dL (1.9-2.7); Potassium 3.5 mmol/L (3.5-5.0); Total Bilirubin 0.3 mg/dL (0.2-1.0); Total Protein 5.8 g/dL (6.4-8.9)
[2018-11-17] MEDS: Magnesium Oxide TAB* 400 MG PO ONE (11:10)
[2018-11-17 12:00] VITALS: BP 97/52
== END 2018-11-17 12:00 | disposition home or self-care (01) ==
LOC: ED 09:31
DX: G40.909 Epilepsy, unspecified, not intractable, without status epilepticus (principal); Z87.891 Personal history of nicotine dependence
CPT/HCPCS: 36415; 71045; 80053; 83605; 83735; 85025; 85610; 93005; 96360; 96361; 99283

== ENCOUNTER 2018-12-09 22:32 | Emergency (ER) | payer OTHER ==
[2018-12-09] MEDS ORDERED: BRIVARACETAM 25 MG PO ONE (22:52)
--- NOTE | 2018-12-09 22:53 | ED ---
Neurological HPI - HPI Summary HPI Summary: Patient is a 38 y/o F presenting to ED via ambulance with complaints of seizure. Seizure had been witnessed by EMS as well. Patient has an extensive document Hx of seizure with multiple visits to the ED for this. Patient states that she took clonipine, 1 mg at around 1730, her depakote, but not her briviact. Patient states that she took her morning dose of briviact, but she ran out and was not able to get refill today. On triage, pain is denied, nothing is noted to aggravate/alleviate Sx. Home medications and allergies are reviewed. - History of Current Complaint Chief Complaint: EDSeizure Stated Complaint: SEIZURE Time Seen by Provider: 12/09/18 22:49 Hx Obtained From: Patient Hx Last Menstrual Period: non Onset/Duration: Started hours ago, Resolved Timing: Intermittent Episodes Lasting: Current Severity: None Pain Intensity: 0 Pain Scale Used: 0-10 Numeric - 0/10 Character: Other: - seizures Syncope Context: Witnessed Aggravating: Nothing Alleviating: Nothing Associated Signs and Symptoms: Positive: Negative - Additional Pertinent History Primary Care Physician: [id number] - Allergy/Home Medications Allergies/Adverse Reactions: Allergies Allergy/AdvReac Type Severity Reaction Status Date / Time bee venom protein (honey bee) Allergy Hives Verified 11/17/18 09:40 cephalexin [From Keflex] Allergy Hives Verified 11/17/18 09:40 morphine Allergy Hives Verified 11/17/18 09:40 mushroom Allergy Hives Verified 11/17/18 09:40 Sulfa (Sulfonamide Allergy Rash Verified 11/17/18 09:40 Antibiotics) enviromental Allergy Eyes Uncoded 11/17/18 09:40 Itchy/Swollen/Red/Watery Home Medications: Home Medications Cholecalciferol TAB* [Vitamin D TAB*] 2,000 units PO DAILY 12/09/18 [History Confirmed 12/09/18] Meclizine TAB* [Antivert 12.5 TAB*] 25 mg PO BID 12/09/18 [History Confirmed ] clonazePAM TAB(*) [Klonopin TAB(*)] 1 mg PO BID 12/09/18 [History Confirmed ] PMH/Surg Hx/FS Hx/Imm Hx Endocrine/Hematology History: Reports: Hx Thyroid Disease, Hx Anemia - IV iron tx Denies: Hx Anticoagulant Therapy, Hx Diabetes Cardiovascular History: Denies: Hx Congestive Heart Failure, Hx Hypertension, Hx Pacemaker/ICD Comment Only: Other Cardiovascular Problems/Disorders - Arteriovenous malformation - Sx repair in 2008. Right atrial enlargement. 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 RT TEMPORAL LOBE IN 2008 [place] (removed scar tissue). 5 CSECTIONS. VNM simulater.07/2017 Hx Anesthesia Reactions: No - Immunization History Date of Tetanus Vaccine: unk Date of Influenza Vaccine: fall 2017 Infectious Disease History: No Infectious Disease History: Denies: Hx Hepatitis, Hx Human Immunodeficiency Virus (HIV), Traveled Outside the [place] in Last 30 Days - Family History Known Family History: Positive: Cardiac Disease, Hypertension, Other - cancer; denies AVM in the family Negative: Diabetes - Social History Alcohol Use: None Hx Substance Use: No Substance Use Type: Reports: Marijuana Substance Use Comment - Amount & Last Used: its been a while Hx Tobacco Use: Yes Smoking Status (MU): Former Smoker Have You Smoked in the Last Year: Yes - had of close relative on 2016 so smoked to cope Review of Systems Negative: Fever Neurological: Other - POSITIVE - SEIZURES All Other Systems Reviewed And Are Negative: Yes Physical Exam - Summary Physical Exam Summary: VITAL SIGNS: Reviewed. GENERAL: Patient is a well-developed and nourished female who is lying comfortable in the stretcher. Patient is not in any acute respiratory distress. HEAD AND FACE: No signs of trauma. No ecchymosis, hematomas or skull depressions. No sinus tenderness. EYES: PERRLA, EOMI x 2, No injected conjunctiva, no nystagmus. EARS: Hearing grossly intact. Ear canals and tympanic membranes are within normal limits. MOUTH: Oropharynx within normal limits. NECK: Supple, trachea is midline, no adenopathy, no JVD, no carotid bruit, no c- spine tenderness, neck with full ROM. CHEST: Symmetric, no tenderness at palpation LUNGS: Clear to auscultation bilaterally. No wheezing or crackles. CVS: Regular rate and rhythm, S1 and S2 present, no murmurs or gallops appreciated. ABDOMEN: Soft, non-tender. No signs of distention. No rebound no guarding, and no masses palpated. Bowel sounds are normal. EXTREMITIES: FROM in all major joints, no edema, no cyanosis or clubbing. NEURO: Alert and oriented x 3. No acute neurological deficits. Speech is normal and follows commands. SKIN: Dry and warm Triage Information Reviewed: Yes Vital Signs On Initial Exam: Initial Vitals Temp Pulse Resp BP Pulse Ox 98.7 F 86 20 112/67 99 12/09/18 22:37 12/09/18 22:37 12/09/18 22:37 12/09/18 22:37 12/09/18 22:37 Vital Signs Reviewed: Yes Diagnostics - Vital Signs Vital Signs Temp Pulse Resp BP Pulse Ox 12/09/18 22:37 98.7 F 86 20 112/67 99 - Laboratory Result Diagrams: 12/09/18 23:24 12/09/18 23:24 Lab Statement: Any lab studies that have been ordered have been reviewed, and results considered in the medical decision making process. Course/Dx - Course Course Of Treatment: Patient is a 38 y/o F presenting to ED via ambulance with complaints of seizure. Seizure had been witnessed by EMS as well. Patient has an extensive document Hx of seizure with multiple visits to the ED for this. Patient states that she took clonipine, 1 mg at around 1730, her depakote, but not her briviact. Patient states that she took her morning dose of briviact, but she ran out and was not able to get refill today. Physical exam is normal. During ED course, patient was given reglan 10 mg IV, Levaquin 500 mg PO, and Briviact Tab 100 mg PO. UA showed Leuk Esterase 3+, WBC 3+, RBC 2+, squamouos epith cells present, no bacteria, no glucose. Valproic acid is 66. ALT 64, AST 60, absolute monos 1.1. Patient has UTI, seizure could be secondary to this, she will be treated with levaquin. It could also be secondary to her not taking her evening briviact, she states she will get more tomorrow. - Diagnoses Provider Diagnoses: Seizure, UTI (urinary tract infection) Discharge - Sign-Out/Discharge Documenting (check all that apply): Patient Departure - discharge - Discharge Plan Condition: Stable Disposition: HOME Prescriptions: Levofloxacin TAB* [Levaquin TAB*] 500 mg PO DAILY #7 tab Patient Education Materials: Urinary Tract Infection in Women (ED), Recurrent Seizures in Adults (ED) Referrals: Madhavi Mayorga MD [Primary Care Provider] - 2 Days Additional Instructions: RETURN TO THE EMERGENCY DEPARTMENT FOR CHANGING OR WORSENING SYMPTOMS. FOLLOW UP WITH PRIMARY CARE PHYSICIAN IN 1-2 DAYS. - Attestation Statements Document Initiated by Scribe: Yes Documenting Scribe: NAKUL BARRERA Provider For Whom Scribe is Documenting (Include Credential): LORENA CRAMER MD Scribe Attestation: INAKUL , scribed for LORENA CRAMER MD on 12/10/18 at 0019. Status of Scribe Document: Ready
[2018-12-09 23:35] LABS: ABS Basophils 0 10^3/ul (0-0.2); ABS Eosinophils 0.1 10^3/ul (0-0.6); ABS Lymphocytes 1.6 10^3/ul (1.0-4.8); ABS Monocytes 1.1 10^3/ul (0-0.8); ABS Neutrophils 5.3 10^3/ul (1.5-7.7); ABS Nucleated RBC 0 10^3/ul; Eosinophil % 1.4 %; Hematocrit 40 % (35-47); Hemoglobin 13.5 g/dl (12.0-16.0); Lymphocyte % 19.5 %; Mean Corpuscular HGB Conc 34 g/dl (31-36); Mean Corpuscular Hemoglobin 30 pg (27-31); Mean Corpuscular Volume 87 fL (80-97); Mean Platelet Volume 7.6 fL (7.4-10.4); Nucleated Red Blood Cells % 0; Platelet Count 205 10^3/ul (150-450); Red Blood Count 4.53 10^6/ul (4.00-5.40); Red Cell Distribution Width 14 % (10.5-15); White Blood Count 8.1 10^3/ul (3.5-10.8)
[2018-12-09 23:39] LABS: INR 0.97 (0.77-1.02)
[2018-12-09 23:52] LABS: ALT 64 U/L (7-52); AST 60 U/L (13-39); Albumin 4.3 g/dL (3.2-5.2); Alkaline Phosphatase 40 U/L (34-104); Anion Gap 5 mmol/L (2-11); BUN/Creatinine Ratio 17.3 (8-20); Blood Urea Nitrogen 9 mg/dL (6-24); CO2 Carbon Dioxide 27 mmol/L (22-32); Calcium 9.4 mg/dL (8.6-10.3); Chloride 105 mmol/L (101-111); EGFR Non-African American 132.7 (>60); Globulin 2.1 g/dL (2-4); Glucose 99 mg/dL (70-100); Potassium 3.8 mmol/L (3.5-5.0); Sodium 137 mmol/L (135-145); Total Protein 6.4 g/dL (6.4-8.9)
[2018-12-09 23:59] LABS: Urine Appearance Turbid; Urine Bacteria Absent (Absent); Urine Bilirubin Negative (Negative); Urine Blood Negative (Negative); Urine Color Yellow; Urine Glucose Negative (Negative); Urine Ketones Negative (Negative); Urine Nitrite Negative (Negative); Urine Protein Negative (Negative); Urine Red Blood Cell 2+(6-10/hpf) (Absent); Urine Specific Gravity 1.019 (1.010-1.030); Urine Urobilinogen Negative (Negative); Urine White Blood Cell 3+(>20/hpf) (Absent)
[2018-12-09 23:59] LABS: HCG Pregnancy < 0.60 mIU/mL
[2018-12-10] MEDS ORDERED: Metoclopramide IV* 5 MG/ML 2 ML VIAL IV SLOW PU ONE (00:09)
[2018-12-10] MEDS ORDERED: Levofloxacin TAB* 500 MG PO ONE (00:09)
[2018-12-10 00:45] VITALS: BP 102/63
== END 2018-12-10 00:47 | disposition home or self-care (01) ==
LOC: ED 22:32
DX: R56.9 Unspecified convulsions (principal); N39.0 Urinary tract infection, site not specified; Z87.891 Personal history of nicotine dependence; Z88.2 Allergy status to sulfonamides
CPT/HCPCS: 36415; 80053; 80164; 81003; 81015; 83735; 84702; 85025; 85610; 87086; 96374; 99284; J2765

== ENCOUNTER 2018-12-29 07:39 | Emergency (ER) | payer OTHER ==
--- NOTE | 2018-12-29 07:56 | ED ---
Dizziness - HPI Summary HPI Summary: This patient is a 38 year old F presenting today because she's been vomiting for about 2 days and can't stop. She's had some spinning symptomatology which she states is vertigo for which she took a meclizine and Zofran ODT just prior to calling EMS. EMS initiated an IV and gave her additional Zofran and started IV fluids. She briefly had some abdominal pain yesterday and diarrhea but that has resolved. She's had a flu shot this season. She's not aware of any fevers but does not have a thermometer. She has had occasionally felt headachy with a sore throat but not right now. She apparently gets vertigo frequently. - History Of Current Complaint Chief Complaint: EDGeneral Stated Complaint: FLU LIKE SYMPTOMS Time Seen by Provider: 12/29/18 07:40 Hx Obtained From: Patient Onset/Duration: Still Present, Gradually - 2 days ago Severity Initially: Moderate Severity Currently: Moderate Character: Head Spinning Aggravating Factor(s): Change In Head Position Alleviating Factor(s): Other - Holding Head Still Associated Signs And Symptoms: Positive: Nausea, Vomiting, Diarrhea - Allergies/Home Medications Allergies/Adverse Reactions: Allergies Allergy/AdvReac Type Severity Reaction Status Date / Time bee venom protein (honey bee) Allergy Hives Verified 12/29/18 07:50 cephalexin [From Keflex] Allergy Hives Verified 12/29/18 07:50 morphine Allergy Hives Verified 12/29/18 07:50 mushroom Allergy Hives Verified 12/29/18 07:50 Sulfa (Sulfonamide Allergy Rash Verified 12/29/18 07:50 Antibiotics) enviromental Allergy Eyes Uncoded 12/29/18 07:50 Itchy/Swollen/Red/Watery Home Medications: Home Medications Sertraline* [Zoloft*] 50 mg PO DAILY 12/29/18 [History Confirmed 12/29/18] PMH/Surg Hx/FS Hx/Imm Hx Previously Healthy: Yes Endocrine/Hematology History: Reports: Hx Thyroid Disease, Hx Anemia - IV iron tx Denies: Hx Anticoagulant Therapy, Hx Diabetes Cardiovascular History: Denies: Hx Congestive Heart Failure, Hx Hypertension, Hx Pacemaker/ICD Comment Only: Other Cardiovascular Problems/Disorders - Arteriovenous malformation - Sx repair in 2008. Right atrial enlargement. 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 RT TEMPORAL LOBE IN 2008 [place] (removed scar tissue). 5 CSECTIONS. VNM simulater.07/2017 Hx Anesthesia Reactions: No - Immunization History Date of Tetanus Vaccine: unk Date of Influenza Vaccine: fall 2017 Infectious Disease History: No Infectious Disease History: Denies: Hx Hepatitis, Hx Human Immunodeficiency Virus (HIV), Traveled Outside the [place] in Last 30 Days - Family History Known Family History: Positive: Cardiac Disease, Hypertension, Other - cancer; denies AVM in the family Negative: Diabetes - Social History Alcohol Use: None Hx Substance Use: No Substance Use Type: Reports: Marijuana Substance Use Comment - Amount & Last Used: its been a while Hx Tobacco Use: Yes Smoking Status (MU): Former Smoker Have You Smoked in the Last Year: Yes - had of close relative on 2016 so smoked to cope Review of Systems Positive: Chills Eyes: Negative Positive: Sore Throat Respiratory: Negative Positive: Vomiting, Diarrhea, Nausea Positive: Myalgia Positive: Headache All Other Systems Reviewed And Are Negative: Yes Physical Exam - Summary Physical Exam Summary: Appearance: miserable but her vitals are stable and she is not toxic in appearance. Skin: The skin is warm and dry and skin color reflects adequate perfusion. HEENT: The head is normocephalic and atraumatic. The pupils are equal and reactive. The conjunctivae are clear and without drainage. Nares are patent and without drainage. Mouth reveals moist mucous membranes and the throat is without erythema and exudate. The external ears are intact. The ear canals are patent and without drainage. The tympanic membranes are intact. Neck: The neck is supple with full range of motion and non-tender. There are no carotid bruits. There is no neck vein distension. Respiratory: Chest is non-tender. Lungs are clear to auscultation and breath sounds are symmetrical and equal. Cardiovascular: Heart is regular rate and rhythm. There is no murmur or rub auscultated. There is no peripheral edema and pulses are symmetrical and equal. Abdomen: The abdomen is soft and non-tender. There are normal bowel sounds heard in all four quadrants and there is no organomegaly palpated. Musculoskeletal: There is no back tenderness noted. Extremities are non-tender with full range of motion. There is good capillary refill. There is no peripheral edema or calf tenderness elicited. Neurological: Patient is alert and oriented to person, place and time. The patient has symmetrical motor strength in all four extremities. Cranial nerves are grossly intact. Deep tendon reflexes are symmetrical and equal in all four extremities. Psychiatric: The patient has an appropriate affect and does not exhibit any anxiety or depression. Triage Information Reviewed: Yes Vital Signs On Initial Exam: Initial Vitals Temp Pulse Resp BP Pulse Ox 97.4 F 94 17 111/69 100 12/29/18 07:40 12/29/18 07:40 12/29/18 07:40 12/29/18 07:40 12/29/18 07:40 Vital Signs Reviewed: Yes Appearance: Positive: Ill-Appearing Skin: Positive: Warm, Skin Color Reflects Adequate Perfusion, Dry Eyes: Positive: Normal - no nystagmus ENT: Positive: Normal ENT inspection, Pharynx normal Neck: Positive: Supple, Nontender, No Lymphadenopathy Respiratory/Lung Sounds: Positive: Clear to Auscultation Cardiovascular: Positive: Normal Abdomen Description: Positive: Nontender Musculoskeletal: Positive: Normal Neurological: Positive: Normal Diagnostics - Vital Signs Vital Signs Temp Pulse Resp BP Pulse Ox 12/29/18 07:40 97.4 F 94 17 111/69 100 - Laboratory Lab Statement: Any lab studies that have been ordered have been reviewed, and results considered in the medical decision making process. Dizzy Course/Dx - Course Course Of Treatment: Ms. Mendez improved with fluids and medications. Her influenza swab was negative. This is a chronic problem with her that got out of control today. - Diagnoses Provider Diagnoses: Dehydration, Vertigo Discharge - Sign-Out/Discharge Documenting (check all that apply): Patient Departure - discharge Patient Received Moderate/Deep Sedation with Procedure: No - Discharge Plan Condition: Stable Disposition: HOME Patient Education Materials: Dehydration (ED), Vertigo (ED) Referrals: Madhavi Mayorga MD [Primary Care Provider] - If Needed Yoni Ortega MD [Medical Doctor] - 1 Day Additional Instructions: RETURN TO THE EMERGENCY DEPARTMENT FOR CHANGING OR WORSENING SYMPTOMS. - Billing Disposition and Condition Condition: STABLE Disposition: Home - Attestation Statements Scribe Documentation Reviewed: No
[2018-12-29] MEDS ORDERED: NS 0.9% 1000 ML** 1,000 ML IV ONE ×2 (07:58→10:14)
[2018-12-29 09:04] LABS: Influenza A Molecular NEGATIVE (Negative); Influenza B Molecular NEGATIVE (Negative)
[2018-12-29 11:32] VITALS: BP 107/77
== END 2018-12-29 11:32 | disposition home or self-care (01) ==
LOC: ED 07:39
DX: E86.0 Dehydration (principal); R42 Dizziness and giddiness; R11.2 Nausea with vomiting, unspecified; R19.7 Diarrhea, unspecified; Z88.6 Allergy status to analgesic agent; Z88.2 Allergy status to sulfonamides; Z87.891 Personal history of nicotine dependence
CPT/HCPCS: 99284

== ENCOUNTER 2019-02-01 05:51 | Emergency (ER) | payer OTHER ==
[2019-02-01] MEDS ORDERED: Ondansetron INJ* 2 MG/ML VIAL IV ONE ×2 (05:54→07:54)
[2019-02-01] MEDS ORDERED: NS 0.9% 1000 ML** 1,000 ML IV ONE ×2 (05:54→07:54)
[2019-02-01 06:17] LABS: ABS Basophils 0 10^3/ul (0-0.2); ABS Eosinophils 0.1 10^3/ul (0-0.6); ABS Lymphocytes 1.9 10^3/ul (1.0-4.8); ABS Monocytes 0.9 10^3/ul (0-0.8); ABS Neutrophils 10.2 10^3/ul (1.5-7.7); ABS Nucleated RBC 0 10^3/ul; Eosinophil % 0.5 %; Hematocrit 40 % (33-41); Hemoglobin 13.3 g/dL (12.0-16.0); Lymphocyte % 14.9 %; Mean Corpuscular HGB Conc 34 g/dL (31-36); Mean Corpuscular Hemoglobin 29 pg (27-31); Mean Corpuscular Volume 87 fL (80-97); Nucleated Red Blood Cells % 0.1; Platelet Count 242 10^3/uL (150-450); Red Blood Count 4.53 10^6 /uL (3.70-4.87); Red Cell Distribution Width 14 % (10.5-15); White Blood Count 13.1 10^3/uL (3.5-10.8)
--- NOTE | 2019-02-01 06:18 | ED ---
Seizure - HPI Summary HPI Summary: Patient is a 38-year-old female arriving by ambulance with a complaint of a grand mal seizure at approximately 4:30 this morning. She said just prior to this, she began vomiting and has been 3 hours. She endorses this vomiting is retching only, not bringing anything up. She denies abdominal pain. She denies any known sick contacts. Patient has a known history of epilepsy and has a placed vagal nerve stimulator, this was from [facility] in January 2018. She states this is not given her relief. She denies any confusion , memory loss, visual changes or headache. She is a patient of Dr. Vogt and is currently on Depakote. She is medication compliant. On arrival, she is not appearing to me to be postictal. - History Of Current Complaint Chief Complaint: EDNauseaVomitDiarrh Time Seen by Provider: 02/01/19 05:54 Hx Obtained From: Patient Onset/Duration: Sudden Onset Severity Of Seizure: Status Epilepticus Location Of Seizure: All Extremities Character: Generalized Clonic-Tonic Aggravating Factor(s): Nothing Alleviating Factor(s): Spontaneous Resolution Associated Signs And Symptoms: Negative Related History: Pseudoseizures, Medication Compliant - Risk Factors SAH Risk Factors: Negative Meningitis Risk Factors: Negative SDH Risk Factor: Seizures - Allergies/Home Medications Allergies/Adverse Reactions: Allergies Allergy/AdvReac Type Severity Reaction Status Date / Time bee venom protein (honey bee) Allergy Hives Verified 12/29/18 07:50 cephalexin [From Keflex] Allergy Hives Verified 12/29/18 07:50 morphine Allergy Hives Verified 12/29/18 07:50 mushroom Allergy Hives Verified 12/29/18 07:50 Sulfa (Sulfonamide Allergy Rash Verified 12/29/18 07:50 Antibiotics) enviromental Allergy Eyes Uncoded 12/29/18 07:50 Itchy/Swollen/Red/Watery PMH/Surg Hx/FS Hx/Imm Hx Previously Healthy: Yes Endocrine/Hematology History: Reports: Hx Thyroid Disease, Hx Anemia - IV iron tx Denies: Hx Anticoagulant Therapy, Hx Diabetes Cardiovascular History: Denies: Hx Congestive Heart Failure, Hx Hypertension, Hx Pacemaker/ICD Comment Only: Other Cardiovascular Problems/Disorders - Arteriovenous malformation - Sx repair in 2008. Right atrial enlargement. 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 RT TEMPORAL LOBE IN 2008 [place] (removed scar tissue). 5 CSECTIONS. VNM simulater.07/2017 Hx Anesthesia Reactions: No - Immunization History Date of Tetanus Vaccine: unk Date of Influenza Vaccine: fall 2017 Hx Pertussis Vaccination: No Immunizations Up to Date: Yes Infectious Disease History: No Infectious Disease History: Denies: Hx Hepatitis, Hx Human Immunodeficiency Virus (HIV), Traveled Outside the [place] in Last 30 Days - Family History Known Family History: Positive: Cardiac Disease, Hypertension, Other - cancer; denies AVM in the family Negative: Diabetes - Social History Occupation: Unemployed Lives: With Family Alcohol Use: None Hx Substance Use: No Substance Use Type: Reports: Marijuana Substance Use Comment - Amount & Last Used: occassional Hx Tobacco Use: Yes Smoking Status (MU): Former Smoker Have You Smoked in the Last Year: Yes - had of close relative on 2016 so smoked to cope Review of Systems Constitutional: Negative Negative: Fever, Chills, Fatigue, Skin Diaphoresis Negative: Palpitations, Chest Pain Negative: Shortness Of Breath, Cough Positive: Abdominal Pain, Vomiting, Nausea Genitourinary: Negative Positive: no symptoms reported, see HPI Neurological: Negative Psychological: Normal All Other Systems Reviewed And Are Negative: Yes Physical Exam Triage Information Reviewed: Yes Vital Signs On Initial Exam: Initial Vitals Temp Pulse Resp BP Pulse Ox 97.0 F 108 18 108/78 99 02/01/19 05:51 02/01/19 05:51 02/01/19 05:51 02/01/19 05:51 02/01/19 05:51 Vital Signs Reviewed: Yes Appearance: Positive: Ill-Appearing, Thin, Cachectic Skin: Positive: Skin Color Reflects Adequate Perfusion Head/Face: Positive: Normal Head/Face Inspection Eyes: Positive: EOMI, Conjunctiva Clear Neck: Positive: Nontender Respiratory/Lung Sounds: Positive: Clear to Auscultation, Breath Sounds Present Cardiovascular: Positive: RRR, Pulses are Symmetrical in both Upper and Lower Extremities Musculoskeletal: Positive: Strength/ROM Intact Neurological: Positive: Speech Normal Psychiatric: Positive: Affect/Mood Appropriate Diagnostics - Vital Signs Vital Signs Temp Pulse Resp BP Pulse Ox 02/01/19 05:51 97.0 F 108 18 108/78 99 - Laboratory Result Diagrams: 02/01/19 06:09 02/01/19 06:09 Lab Statement: Any lab studies that have been ordered have been reviewed, and results considered in the medical decision making process. Course/Dx - Course Course Of Treatment: Patient arrives by EMS. She is actively retching on arrival, however is not bringing anything up. Seizure precautions put in place. She is given normal saline and Zofran. Labs obtained. Influenza obtained. She denies any recent illness, however began to vomit approximately 3 hours [employer]. She began to have a seizure approximately 1.5 hours [employer]. EMS stated she was found in front of the door in a position (EMS states this is common to find her in this location regardless of time.) Patient lives with mom and older gentelman. After fluids, Zofran and 1 hour later, Reglan, patient begins to feel improved. However she still states she is having nausea. She subsequently given Ativan. Just prior to discharge, she again states she is slightly nauseous and she is given another Zofran. Prior to discharge, patient states she is feeling better, denies any nausea, headache, confusion, weakness. She will be discharged with nausea and vomiting as well as seizure. She will continue to follow up with Dr. Ortega. No change in her medications at this time. - Diagnoses Provider Diagnoses: Seizure, Nausea and vomiting Discharge - Sign-Out/Discharge Documenting (check all that apply): Patient Departure Patient Received Moderate/Deep Sedation with Procedure: No - Discharge Plan Condition: Stable Disposition: HOME Patient Education Materials: Acute Nausea and Vomiting (ED) Referrals: Madhavi Mayorga MD [Primary Care Provider] - Additional Instructions: Take her Zofran at home as needed for nausea and vomiting Rest today Fluids - Billing Disposition and Condition Condition: STABLE Disposition: Home
[2019-02-01 06:26] LABS: Activated Partial Thrombo Time 27.6 seconds (26.0-36.3); INR 0.94 (0.77-1.02)
[2019-02-01 06:33] LABS: Albumin 4.3 g/dL (3.2-5.2); Albumin/Globulin Ratio 2.4 (1-3); BUN/Creatinine Ratio 13.8 (8-20); Calcium 8.8 mg/dL (8.6-10.3); EGFR African American 141.5 (>60); Globulin 1.8 g/dL (2-4); Magnesium 1.8 mg/dL (1.9-2.7); Potassium 3.2 mmol/L (3.5-5.0); Total Bilirubin 0.3 mg/dL (0.2-1.0); Total Protein 6.1 g/dL (6.4-8.9)
[2019-02-01] MEDS ORDERED: LORazepam INJ* 2 MG/ML 1 ML VIAL IV PUSH ONE (06:44)
[2019-02-01] MEDS ORDERED: Metoclopramide IV* 5 MG/ML 2 ML VIAL IV SLOW PU ONE (06:44)
[2019-02-01 11:05] VITALS: BP 103/76
== END 2019-02-01 11:03 | disposition home or self-care (01) ==
LOC: ED 05:51
DX: G40.909 Epilepsy, unspecified, not intractable, without status epilepticus (principal); R11.2 Nausea with vomiting, unspecified; Z88.2 Allergy status to sulfonamides; Z88.6 Allergy status to analgesic agent; Z87.891 Personal history of nicotine dependence
CPT/HCPCS: 36415; 80053; 83605; 83735; 85025; 85610; 85730; 96361; 96374; 96375; 96376; 99283; J2060; J2405; J2765

== ENCOUNTER → 2019-02-16 16:55 | Emergency (ER) | payer OTHER ==
--- NOTE | 2019-02-16 17:40 | ED ---
Neurological HPI - HPI Summary HPI Summary: The patient is a 38 y/o F presenting to [facility] with a chief complaint of a total- clonic seizure today that lasted approximately two minutes as witnessed by her father. The seizure was accompanied by lasting left-sided weakness and tingling , which is usual for her hx of seizures. She notes that she had run out of her Aptiom last night and had to wait to get it refilled before taking it today. She was able to take her Depakote and Briviact as normally. Her discomfort is rated 2/10 in severity. She denies fever, chills, erythema of eyes, sore throat , CP, SOB, cough, abdominal pain, N/V, dysuria, hematuria, myalgia, edema, rash , or dizziness. - History of Current Complaint Chief Complaint: EDSeizure Stated Complaint: SEIZURES PER EMS Time Seen by Provider: 02/16/19 17:19 Hx Obtained From: Patient Hx Last Menstrual Period: non Onset/Duration: Sudden Onset, Resolved Current Severity: Mild Seizure Severity: Moderate Number of Seizures: 1 Pain Intensity: 2 Pain Scale Used: 0-10 Numeric Character: Weak - on left side Seizure Character: Total-Clonic Aggravating: Nothing Alleviating: Nothing Associated Signs and Symptoms: Positive: Weakness - and tingling on left side. Negative: Nausea/Vomiting Related Hx: Seizure - Additional Pertinent History Primary Care Physician: CORAL - Allergy/Home Medications Allergies/Adverse Reactions: Allergies Allergy/AdvReac Type Severity Reaction Status Date / Time bee venom protein (honey bee) Allergy Hives Verified 02/01/19 10:52 cephalexin [From Keflex] Allergy Hives Verified 02/01/19 10:52 morphine Allergy Hives Verified 02/01/19 10:52 mushroom Allergy Hives Verified 02/01/19 10:52 Sulfa (Sulfonamide Allergy Rash Verified 02/01/19 10:52 Antibiotics) enviromental Allergy Eyes Uncoded 02/01/19 10:52 Itchy/Swollen/Red/Watery PMH/Surg Hx/FS Hx/Imm Hx Endocrine/Hematology History: Reports: Hx Thyroid Disease, Hx Anemia - IV iron tx Denies: Hx Anticoagulant Therapy, Hx Diabetes Cardiovascular History: Denies: Hx Congestive Heart Failure, Hx Hypertension, Hx Pacemaker/ICD Comment Only: Other Cardiovascular Problems/Disorders - Arteriovenous malformation - Sx repair in 2008. Right atrial enlargement. 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 RT TEMPORAL LOBE IN 2008 [place] (removed scar tissue). 5 CSECTIONS. VNM simulater.07/2017 Hx Anesthesia Reactions: No - Immunization History Date of Tetanus Vaccine: unk Date of Influenza Vaccine: fall 2017 Infectious Disease History: No Infectious Disease History: Denies: Hx Hepatitis, Hx Human Immunodeficiency Virus (HIV), Traveled Outside the [place] in Last 30 Days - Family History Known Family History: Positive: Cardiac Disease, Hypertension, Other - cancer; denies AVM in the family Negative: Diabetes - Social History Alcohol Use: None Hx Substance Use: No Substance Use Type: Reports: Marijuana Substance Use Comment - Amount & Last Used: occassional Hx Tobacco Use: Yes Smoking Status (MU): Former Smoker Have You Smoked in the Last Year: Yes - had of close relative on 2016 so smoked to cope Review of Systems Negative: Fever, Chills Negative: Erythema Negative: Sore Throat Negative: Chest Pain Negative: Shortness Of Breath, Cough Negative: Abdominal Pain, Vomiting, Nausea Negative: dysuria, hematuria Negative: Myalgia, Edema Negative: Rash Neurological: Other - POSITIVE: total clonic seizure; NEGATIVE: dizziness, changes in sleep Positive: Weakness - on left side with tingling All Other Systems Reviewed And Are Negative: Yes Physical Exam - Summary Physical Exam Summary: Constitutional: Well-developed, Well-nourished, Alert. (-) Distressed Skin: Warm, Dry HENT: Normocephalic; Atraumatic Eyes: Conjunctiva normal Neck: Musculoskeletal ROM normal neck. (-) JVD, (-) Stridor, (-) Tracheal deviation Cardio: Rhythm regular, rate normal, Heart sounds normal; Intact distal pulses; The pedal pulses are 2+ and symmetric. Radial pulses are 2+ and symmetric. (-) Murmur Pulmonary/Chest wall: Effort normal. (-) Respiratory distress, (-) Wheezes, (-) Rales Abd: Soft, (-) tenderness, (-) Distension, (-) Guarding, (-) Rebound Musculoskeletal: (-) Edema Lymph: (-) Cervical adenopathy Neuro: Alert, Oriented x3, Left side is currently paretic consistent with postictal state and Magnus's paralysis Psych: Mood and affect Normal Triage Information Reviewed: Yes Vital Signs On Initial Exam: Initial Vitals Temp Pulse Resp BP Pulse Ox 98.5 F 101 18 111/63 98 02/16/19 17:24 02/16/19 17:24 02/16/19 17:24 02/16/19 17:24 02/16/19 17:24 Vital Signs Reviewed: Yes Diagnostics - Vital Signs Vital Signs Temp Pulse Resp BP Pulse Ox 02/16/19 17:24 98.5 F 101 18 111/63 98 - Laboratory Result Diagrams: 02/16/19 18:24 02/16/19 18:24 Lab Statement: Any lab studies that have been ordered have been reviewed, and results considered in the medical decision making process. - EKG 18:50 Cardiac Rate: NL - 78 BPM EKG Rhythm: Sinus Rhythm Summary of EKG Findings: No STEMI. Re-Evaluation - Re-Evaluation First Eval Re-Evaluation Time: 19:00 Change: Improved Comment: She is able to move all of her extremities with FROM; Magnus's paralysis has resolved. She is able to use her phone with both hands. Course/Dx - Course Course Of Treatment: The patient is a 38 y/o F with a chief complaint of a total clonic seizure today that lasted approximately two minutes as witnessed by her father. Seizure was accompanied by lasting left-sided weakness and tingling, which is usual for her hx of seizures. She notes that she had run out of her Aptiom last night and had to wait to get it refilled before taking it today. She was able to take her Depakote and Briviact as normally. Upon physical exam, the left side is currently paretic consistent with postictal state and Todds Paralysis. Shes had multiple ER visits for this symptomology. In the ED course, blood work revealed no abnormal results. Toxicology report shows valproic acid of 80. At re-eval at 19:00, the patient is able to move all four extremities with FROM; her Todds Paralysis has resolved. She is diagnosed with breakthrough seizure and Todds paralysis. She is discharged home with follow up with her neurologist in 2-3 days. She agrees with this plan and understands the need for return to the ED if any new or worsening symptoms appear. - Diagnoses Provider Diagnoses: Breakthrough seizure, Magnus's paralysis (postepileptic) Discharge - Sign-Out/Discharge Documenting (check all that apply): Patient Departure - Patient will be discharged home. Patient Received Moderate/Deep Sedation with Procedure: No - Discharge Plan Condition: Stable Disposition: HOME Patient Education Materials: Recurrent Seizures in Adults (ED) Referrals: Madhavi Mayorga MD [Primary Care Provider] - 3 Days Additional Instructions: Follow up with your neurologist in 2-3 days. RETURN TO THE EMERGENCY DEPARTMENT FOR ANY NEW OR WORSENING SYMPTOMS - Billing Disposition and Condition Condition: STABLE Disposition: Home - Attestation Statements Document Initiated by Rocioe: Yes Documenting Scribe: Milla Lion Provider For Whom Elle is Documenting (Include Credential): Dr. Dylon Dean MD Scribe Attestation: Milla Bolton scribed for Dr. Dylon Dean MD on 02/17/19 at 1055. Scribe Documentation Reviewed: Yes Provider Attestation: The documentation as recorded by the Milla weller accurately reflects the service I personally performed and the decisions made by me, Dr. Dylon Dean MD Status of Scribtyler Document: Viewed
[2019-02-16 18:34] LABS: ABS Basophils 0 10^3/ul (0-0.2); ABS Eosinophils 0.2 10^3/ul (0-0.6); ABS Lymphocytes 2.6 10^3/ul (1.0-4.8); ABS Monocytes 0.5 10^3/ul (0-0.8); ABS Neutrophils 2.3 10^3/ul (1.5-7.7); ABS Nucleated RBC 0 10^3/ul; Hematocrit 39 % (33-41); Hemoglobin 13.5 g/dL (12.0-16.0); Lymphocyte % 46.5 %; Mean Corpuscular HGB Conc 34 g/dL (31-36); Mean Corpuscular Hemoglobin 30 pg (27-31); Mean Corpuscular Volume 87 fL (80-97); Mean Platelet Volume 7.4 fL (7.4-10.4); Nucleated Red Blood Cells % 0.2; Platelet Count 231 10^3/uL (150-450); Red Blood Count 4.55 10^6 /uL (3.70-4.87); Red Cell Distribution Width 13 % (10.5-15); White Blood Count 5.5 10^3/uL (3.5-10.8)
[2019-02-16 18:43] LABS: INR 0.9 (0.77-1.02)
[2019-02-16 18:51] LABS: Albumin 4.2 g/dL (3.2-5.2); BUN/Creatinine Ratio 15.8 (8-20); Calcium 9.4 mg/dL (8.6-10.3); EGFR African American 144.4 (>60); EGFR Non-African American 119.3 (>60); Globulin 2.1 g/dL (2-4); Magnesium 2.2 mg/dL (1.9-2.7); Total Bilirubin 0.3 mg/dL (0.2-1.0); Total Protein 6.3 g/dL (6.4-8.9)
[2019-02-16 18:54] LABS: Potassium 4.1 mmol/L (3.5-5.0)
[2019-02-16 19:39] VITALS: BP 110/72
== END | disposition home or self-care (01) ==
LOC: ED 16:55
DX: G40.909 Epilepsy, unspecified, not intractable, without status epilepticus (principal); G83.84 Todd's paralysis (postepileptic); E07.9 Disorder of thyroid, unspecified; D64.9 Anemia, unspecified; F32.9 Major depressive disorder, single episode, unspecified; Z87.891 Personal history of nicotine dependence
CPT/HCPCS: 36415; 80053; 80164; 83605; 83735; 85025; 85610; 93005; 99282

== ENCOUNTER → 2019-03-06 18:20 | Emergency (ER) | payer OTHER ==
[~2019-03-06 18:20] MED LIST changes: +Ketorolac INJ* 15 MG/ML 1 ML VIAL IV PUSH ONE; +Ketorolac INJ* 15 MG/ML 1 ML VIAL ONE; -Metoclopramide TAB* 10 MG PO ONE; -Potassium Chlor TAB* 20 MEQ TAB.ER PO ONE
[2019-03-06 20:00] LABS: Urine Appearance Turbid; Urine Bilirubin Negative (Negative); Urine Blood Negative (Negative); Urine Color Yellow; Urine Glucose Negative (Negative); Urine Ketones Negative (Negative); Urine Nitrite Negative (Negative); Urine Protein Negative (Negative); Urine Specific Gravity 1.012 (1.010-1.030); Urine Urobilinogen Negative (Negative)
--- NOTE | 2019-03-06 20:27 | ED ---
Neurological HPI - HPI Summary HPI Summary: This patient is a 38 year old F brought in by ambulance to [facility] with a chief complaint of seizure since 18:00. Per EMS, the patient began seizing during transport and the seizure lasted approximately four minutes. The patient also notes that she had another seizure earlier this morning. The patient rates the pain 10/10 in severity. Symptoms aggravated by nothing. Symptoms alleviated by nothing. The patient notes that she has an appointment scheduled with Dr. Ortega next week. The patient notes that she has been taking the same medication dosages for a while and she notes that she already took her medications for the day. - History of Current Complaint Chief Complaint: EDSeizure Stated Complaint: SEIZURES PER EMS Time Seen by Provider: 03/06/19 19:23 Hx Obtained From: Patient Hx Last Menstrual Period: non Onset/Duration: Sudden Onset, Started hours ago, Resolved Timing: Intermittent Episodes Lasting: Onset Severity: Moderate Current Severity: Mild Neurological Deficit Location: Generalized Pain Intensity: 10 Pain Scale Used: 0-10 Numeric Episode Lasting: Seconds/Minutes - four minutes Number of Episodes: 2 Syncope Context: Witnessed Aggravating: Nothing Alleviating: Nothing Associated Signs and Symptoms: Positive: Seizure Related Hx: Medication Comliant, Seizure - Additional Pertinent History Primary Care Physician: [id number] - Allergy/Home Medications Allergies/Adverse Reactions: Allergies Allergy/AdvReac Type Severity Reaction Status Date / Time bee venom protein (honey bee) Allergy Hives Verified 02/01/19 10:52 cephalexin [From Keflex] Allergy Hives Verified 02/01/19 10:52 morphine Allergy Hives Verified 02/01/19 10:52 mushroom Allergy Hives Verified 02/01/19 10:52 Sulfa (Sulfonamide Allergy Rash Verified 02/01/19 10:52 Antibiotics) enviromental Allergy Eyes Uncoded 02/01/19 10:52 Itchy/Swollen/Red/Watery Home Medications: Home Medications Brivaracetam (NF) [Briviact (NF)] 100 mg PO QAM 03/06/19 [History Confirmed ] Brivaracetam (NF) [Briviact (NF)] 150 mg PO QPM 03/06/19 [History Confirmed ] Cholecalciferol (Vitamin D3) [Vitamin D3] 2,000 unit PO DAILY 03/06/19 [History Confirmed 03/06/19] Divalproex ER TAB(*) [Depakote ER TAB(*)] 500 mg PO BEDTIME 03/06/19 [History Confirmed 03/06/19] Pyridoxine TAB* [Vitamin B6 TAB*] 50 mg PO DAILY 03/06/19 [History Confirmed ] PMH/Surg Hx/FS Hx/Imm Hx Endocrine/Hematology History: Reports: Hx Thyroid Disease, Hx Anemia - IV iron tx Denies: Hx Anticoagulant Therapy, Hx Diabetes Cardiovascular History: Denies: Hx Congestive Heart Failure, Hx Hypertension, Hx Pacemaker/ICD Comment Only: Other Cardiovascular Problems/Disorders - Arteriovenous malformation - Sx repair in 2008. Right atrial enlargement. 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 RT TEMPORAL LOBE IN 2008 [place] (removed scar tissue). 5 CSECTIONS. VNM simulater.07/2017 Hx Anesthesia Reactions: No - Immunization History Date of Tetanus Vaccine: unk Date of Influenza Vaccine: fall 2017 Infectious Disease History: No Infectious Disease History: Denies: Hx Hepatitis, Hx Human Immunodeficiency Virus (HIV), Traveled Outside the [place] in Last 30 Days - Family History Known Family History: Positive: Cardiac Disease, Hypertension, Other - cancer; denies AVM in the family Negative: Diabetes - Social History Alcohol Use: None Hx Substance Use: No Substance Use Type: Reports: Marijuana Substance Use Comment - Amount & Last Used: occassional Hx Tobacco Use: Yes Smoking Status (MU): Former Smoker Have You Smoked in the Last Year: Yes - had of close relative on 2016 so smoked to cope Review of Systems Negative: Fever Negative: Epistaxis Negative: Cough Negative: Vomiting Neurological: Other - seizures x2 All Other Systems Reviewed And Are Negative: Yes Physical Exam - Summary Physical Exam Summary: VITAL SIGNS: Reviewed. GENERAL: Patient is a well-developed and nourished FEMALE who is lying comfortable in the stretcher. Patient is not in any acute respiratory distress. HEAD AND FACE: No signs of trauma. No ecchymosis, hematomas or skull depressions. No sinus tenderness. EYES: PERRLA, EOMI x 2, No injected conjunctiva, no nystagmus. EARS: Hearing grossly intact. Ear canals and tympanic membranes are within normal limits. MOUTH: Oropharynx within normal limits. NECK: Supple, trachea is midline, no adenopathy, no JVD, no carotid bruit, no c- spine tenderness, neck with full ROM. CHEST: Symmetric, no tenderness at palpation LUNGS: Clear to auscultation bilaterally. No wheezing or crackles. CVS: Regular rate and rhythm, S1 and S2 present, no murmurs or gallops appreciated. ABDOMEN: Soft, non-tender. No signs of distention. No rebound no guarding, and no masses palpated. Bowel sounds are normal. EXTREMITIES: FROM in all major joints, no edema, no cyanosis or clubbing. NEURO: Alert and oriented x 3. No acute neurological deficits. Speech is normal and follows commands. SKIN: Dry and warm Triage Information Reviewed: Yes Vital Signs On Initial Exam: Initial Vitals Temp Pulse Resp BP Pulse Ox 98 F 114 16 131/92 97 03/06/19 18:23 03/06/19 18:23 03/06/19 18:23 03/06/19 18:23 03/06/19 18:23 Vital Signs Reviewed: Yes Diagnostics - Vital Signs Vital Signs Temp Pulse Resp BP Pulse Ox 03/06/19 19:14 94 15 105/87 97 03/06/19 19:00 95 22 96 03/06/19 18:44 108 21 113/88 93 03/06/19 18:23 98 F 114 16 131/92 97 - Laboratory Lab Results: Lab Results 03/06/19 Range/Units 19:43 Urine Color Yellow Urine Appearance Turbid Urine pH 7.0 (5-9) Ur Specific [place] 1.012 (1.010-1.030) Urine Protein Negative (Negative) Urine Ketones Negative (Negative) Urine Blood Negative (Negative) Urine Nitrate Negative (Negative) Urine Bilirubin Negative (Negative) Urine Urobilinogen Negative (Negative) Ur Leukocyte Esterase Negative (Negative) Urine Glucose Negative (Negative) Lab Statement: Any lab studies that have been ordered have been reviewed, and results considered in the medical decision making process. Course/Dx - Course Course Of Treatment: This patient is a 38 year old F with hx seizures brought in by ambulance to [facility] with a chief complaint of seizure since 18:00. The patient notes that she has an appointment scheduled with Dr. Ortega next week. The patient has already taken her seizure medications today. UA obtained. Patient will be discharged home with and follow up from PCP and Dr. Ortega, neurologist. Dx seizure. The patient is agreeable with this plan. - Diagnoses Provider Diagnoses: Seizure Discharge - Sign-Out/Discharge Documenting (check all that apply): Patient Departure - discharge home Patient Received Moderate/Deep Sedation with Procedure: No - Discharge Plan Condition: Stable Disposition: HOME Patient Education Materials: Recurrent Seizures in Adults (ED) Referrals: Madhavi Mayorga MD [Primary Care Provider] - Yoni Ortega MD [Medical Doctor] - 1 Day Additional Instructions: Keep your appointment Dr. Ortega, neurologist, for this upcoming week. Follow up with primary care physician in 1-2 days. Return to the emergency department with any new or worsening symptoms. - Billing Disposition and Condition Condition: STABLE Disposition: Home - Attestation Statements Document Initiated by Elle: Yes Documenting Scribe: Janie Jolley Provider For Whom Elle is Documenting (Include Credential): Marizol Chen MD Scribe Attestation: Janie Bolton scribed for Marizol Chen MD on 03/07/19 at 0611. Scribe Documentation Reviewed: Yes Provider Attestation: The documentation as recorded by the Janie weller accurately reflects the service I personally performed and the decisions made by Myriam coker MD Status of Scribe Document: Viewed
[2019-03-06 20:47] VITALS: BP 116/87
== END | disposition home or self-care (01) ==
LOC: ED 18:20
DX: R56.9 Unspecified convulsions (principal); E07.9 Disorder of thyroid, unspecified; D64.9 Anemia, unspecified; F32.9 Major depressive disorder, single episode, unspecified; Z88.2 Allergy status to sulfonamides; Z88.5 Allergy status to narcotic agent; Z88.3 Allergy status to other anti-infective agents; Z87.891 Personal history of nicotine dependence
CPT/HCPCS: 81003; 96374; 99283; J1885

== ENCOUNTER 2019-04-07 18:38 | Emergency (ER) | payer OTHER ==
[2019-04-07] MEDS ORDERED: NS 0.9% 1000 ML** 1,000 ML IV ONE (19:09)
--- OUTSIDE RECORDS SUMMARY | 2019-04-07 19:12 | XMS REPORT | Continuity of Care Document ---
:1980 External Reference #:[id number] Author Name Daniela Olson Care Team Providers Name Role Phone Madhavi Soto MD Primary Care Physician Unavailable Payers Date Identification Numbers Payment Provider Subscriber Effective: Policy Number: [id number] [employer] Selena Diane 2016 Medicaid PayID: [id number] [address] [place] [address] Expires: 2017 Policy Number: [employer] Selena Diane [id number] PayID: [id number] [address] [place] [address] Advance Directives Description No Information Available Problems Active Problems Provider Date Partial seizure evolving to secondary Lucy Butcher M.D. 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 Onset: 09/27/2018 Weight decreased Leatha Coles MD Onset: 12/04/2017 Migraine with typical aura Leatha Coles MD Onset: 09/18/2017 Binocular vision suppression Leatha Coles MD Onset: 09/04/2017 Nausea Leatha Coles MD Onset: 08/21/2017 Cerebral arteriovenous malformation Leatha Coles MD Onset: 06/25/2017 Family History Description No Information Available Social History Type Date Description Comments Sex Unknown Occupation Unemployed ETOH Use Denies alcohol use over a year ago, 2016 Tobacco Use Start: Unknown End: Patient is a former smoker Patient quit in 2003 Unknown Smoking Status Reviewed: 03/12/19 Patient is a former smoker Patient quit in 2003 Allergies, Adverse Reactions, Alerts Active Allergies Reaction Severity Comments Date Morphine 04/23/2013 Lacosamide Severe 11/25/2014 Zonisamide rash Moderate 11/25/2014 Medications Active Medications SIG Qnty Indications Ordering Provider Date Clonazepam twice a day 6tabs [place], 12/18/2018 1mg Tablets until aptiom is N.P. filled on sunday Levothyroxine Sodium 1 by mouth Ezequiel Henderson, 11/07/2018 every day M.D. 75mcg Tablets Pyridoxine HCL 1 po qd 90tabs Ezequiel Henderson, 08/19/2018 50mg M.D. Tablets Divalproex Sodium ER 2 tabs every 60tabs G40.219 [place], 2017 night at N.P. 250mg Tablets ER 24HR bedtime Aptiom take one tab by 60tabs G40.219 Nathen Jordan, 04/05/2018 800mg Tablets mouth twice M.D. daily Sertraline HCL take 2 tablets 60tabs F41.9 Nathen Jordan, 12/07/2017 50mg by mouth once M.D. Tablets daily Magnesium Oxide 1 by mouth 30tabs G43.109 Ezequiel Henderson, 09/18/2017 400mg every day M.D. Tablets Briviact 1 by mouth 75tabs Ezequiel Henderson, 07/28/2017 100mg Tablets every morning M.D. and 1 1/2 every night at bedtime Acetaminophen take 2 tabs prn 120tabs Unknown 325mg Tablets Potassium Chloride ER take 1 tablet Unknown by mouth once 10Meq Tablets ER daily Ferrous Sulfate 1 tab po qd Unknown 325(65Fe) mg Tablets Ra Vitamin D-3 take 1 capsule Unknown 2000Unit by mouth once Capsules daily History Medications Clonazepam take twice a 6tabs [place], 12/18/2018 - 1mg Tablets day until N.P. 12/18/2018 aptiom filled on sunday Klonopin 1 tab po 3tabs Nathen Ortega, 12/09/2018 - 1mg Tablets tonight, 1 tab M.D. 12/18/2018 po qam and 1 tab po qpm Levothyroxine Sodium 1 po qd 30tabs Ezequiel Henderson, 08/14/2018 - M.D. 11/07/2018 50mcg Tablets Vitamin B-12 1 by mouth 90tabs Ezequiel Henderson, 07/31/2018 - Natural every day M.D. 09/27/2018 500mcg Tablets Divalproex Sodium 1 po at 6 PM 120tabs G40.21 Ezequiel Henderson, 2017 - 250mg for 1 wk then 1 9 M.D. 08/14/[address] at 6 Am and 6 PM for 1 wk then 2 at 6 Am and 6 PM Zofran 1/2-one by 9tabs Leatha Coles MD 07/24/2018 - 8mg Tablets mouth every 8 09/27/2018 hours as needed for nausea Clonazepam 1 tablet by 5tabs Lucy Butcher, 06/09/2018 - 0.5mg mouth at M.D. 09/27/2018 Tablets bedtime x 3 days, then use remaining tablets as needed maximum 1 tablet at bedtime. Klonopin 1 tablet by 6tabs Nadeem Solorio MD 02/11/2018 - 0.5mg Tablets mouth twice a 03/05/2018 day Hydroxyzine HCL 1/2 to 1 tablet 60tabs Leatha Coles MD 12/04/2017 - 25mg as needed for 12/04/2017 Tablets anxiety up to twice a day Sertraline HCL 1 by mouth 60tabs F41.9 Leatha Coles MD 12/04/2017 - 25mg every day for 12/07/2017 Tablets two weeks, then 2 tabs by mouth daily Vicodin take 1 po q 6 3tabs Lucy Butcher, 10/10/2017 - 5-300mg Tablets hours, as M.D. 12/03/2017 needed for pain Naproxen 1 up to twice a 60tabs G43.10 Leatha Coles MD 09/18/2017 - 500mg Tablets day as needed 9 09/27/2018 for migraine. Avoid using more than 2 to 3 times per week Ondansetron 1 up to three 30tabs R11.0 Leatha Coles MD 08/21/2017 - 4mg Tablets times a day as 12/03/2017 Dispers needed for nausea Briviact 2 by mouth 32tabs Leatha Coles MD 07/29/2017 - 50mg Tablets twice daily 08/20/2017 Briviact 1 by mouth 28tabs Leatha Coles MD 06/25/2017 - 50mg Tablets twice daily 07/28/2017 Clonazepam 1 twice a day 35tabs G40.21 Leatha Coles MD 06/25/2017 - 0.125mg for 2 weeks 9 07/23/2017 Tablets Dispers then 1 once a day for 2 weeks then stop. Briviact 1 by mouth 60tabs Leatha Coles MD 06/25/2017 - 50mg Tablets twice daily 07/28/2017 Levetiracetam 2 tabs by mouth 60tabs G40.21 Leatha Coles MD 05/28/2017 - 1000mg twice a day 9 07/02/2017 Tablets Clonazepam 1/2 tab po bid 7tabs Nathen Ortega 04/23/2017 - 0.5mg M.D. 12/03/2017 Tablets Dispers Citalopram 2 by mouth 60tabs F41.9 Leatha Coles MD 04/23/2017 - Hydrobromide daily in the 05/20/2018 20mg morning Tablets Onfi 1/2 tab po qhs 4tabs Leatha Coles MD 04/12/2017 - 10mg Tablets 03/26/2018 Lorazepam 1 tablet twice 30tabs Leatha Coles MD 02/13/2017 - 0.5mg Tablets a day as needed 05/21/2017 for aura Fycompa 1 tablet at 120tabs Leatha Coles MD 02/09/2017 - 2mg Tablets bedtime x1 week 04/19/2017 then 2 tablets at bedtime x1 week then 3 tablets at bedtime [id number] then 4 tablets at bedtime Citalopram take 1 by mouth 60tabs F41.9 Leatha Coles MD 01/22/2017 - Hydrobromide once daily for 04/23/2017 10mg 1 week then 2 Tablets by mouth once daily Phenytoin Sodium 3 cap by mouth 90caps Mayte Castañeda, 10/09/2016 - Extended every night M.D. 10/30/2016 100mg Capsules Aptiom 1 in am 60tabs G40.21 Leatha Coles MD 01/10/2016 - 400mg Tablets 1 12/20/2016 Folic Acid 1 by mouth 30tabs V22.2 Lucy Butcher, 11/25/2014 - 1mg Tablets every day M.D. 08/03/2016 Oxcarbazepine 5ml by mouth 750ml Leatha Coles MD 08/01/2013 - 300mg/5ML twice daily 10/31/2016 Suspension Folic Acid take two by 60tabs Lucy Butcher, 09/02/2012 - 1mg Tablets mouth each day M.D. 10/13/2013 Levetiracetam take 4 1200units Leatha Coles MD 08/21/2012 - 100mg/ml teaspoons in 05/28/2017 Solution the Am and 4 teaspoons in the PM, shake before using Hydrocodone-Acetamino Matti Romero - vic Cesar MD 12/21/2016 5-325mg Tablets Ra B-Complex/Vitamin take 1 tablet Unknown - C CR once daily 07/30/2018 Tablets ER Oxcarbazepine 1 tab twice a 90tabs Leatha Coles MD - 300mg day 06/19/2018 Tablets Penicillin V 4x a day till Unknown - Potassium out 09/07/2017 500mg Tablets Clindamycin HCL one every 6 Unknown - 150mg hours 08/20/2017 Capsules Hydrocodone-Acetamino 1 tab by mouth Unknown - phen every 4- 6 09/07/2017 5-325mg Tablets hours as needed pain Hydrocortisone use sparingly Unknown - 1% Cream twice a day x 2 09/07/2017 weeks Levothyroxine Sodium 1 by mouth Unknown - every day 08/14/2018 25mcg Tablets Dicyclomine HCL one capsule tid Unknown - 10mg 07/30/2018 Capsules Skin Hair Nails 1 tab a day Unknown - 07/30/2018 Vitamin B-12 1 by mouth Ezequiel Henderson, - Tablets every day M.D. 07/31/2018 Sub Vitamin D 1 in am,1000 Unknown - (Cholecalciferol) units at night 09/27/2018 2000Units Tablets Levothyroxine Sodium 1 by mouth Unknown - every day 08/03/2016 75mcg Tablets Fish Oil 1 by mouth Unknown - 300mg Capsules every day 08/03/2016 Flintstones Plus Iron daily Unknown - 10/31/2015 [place] Pepto-Bismol as needed 120ml Unknown - 262mg/15ML 08/03/2016 Suspension Motrin Pilo 3 tsp po prn Unknown - Strength 08/03/2016 100mg/ml Suspension Doxycycline Hyclate Charles, - MD Madhavi 03/19/2014 100mg Capsules Nitrofurantoin 1 cap po bid x 14caps Unknown - Monohydrate 7 days 12/15/2013 100mg Capsules Lorazepam 1 by mouth 30tabs Leatha Coles MD - 1mg Tablets three times a 02/13/2017 day as needed for aura Vitamin B12 1 po qd 30tabs Unknown - 1000mcg 10/13/2013 Tablets ER Flintstones Complete Unknown - 10/13/2013 60mg [place] Immunizations Description No Information Available Vital Signs Date Vital Result Comment 03/12/2019 9:54am Height 59 inches 4'11" Weight 87.25 lb Heart Rate 60 /min BP Systolic Sitting 102 mmHg BP Diastolic Sitting 68 mmHg Respiratory Rate 16 /min BMI (Body Mass Index) 17.6 kg/m2 11/07/2018 10:58am Height 59 inches 4'11" Weight [...] Result H/L Range Note Laboratory test 11/01/2018 [facility] TSH 3.86 mcIU/mL N 0.34- 5.[address] ([place] [address] Stim Horm) [phone] Free T4 (Free Thyroxine) 0.53 ng/dL Low 0.61-1.12 Valproic Acid (Depakene) 57.0 g/mL N 50-100 CBC Auto Diff 08/14/2018 [facility] White Blood 5.6 10^3/uL N 3.5-10.[address] [place] [address] [phone] Red Blood Count 4.30 10^6/uL N 4.00-5.40 [...] Cells % 0.1 Comp Metabolic Panel 08/14/2018 [facility] Sodium 139 mmol/L N 135-145 [address] [place] [address] [phone] Potassium 3.5 mmol/L N 3.5-5.0 Chloride 104 [...] Egfr 139.6 >60 1 Laboratory test 08/14/2018 [facility] TSH (Thyroid 3.19 mcIU/mL N 0.34-5.[address] Stim Horm) [place] [address] [phone] Free T4 (Free Thyroxine) 0.41 ng/dL Low 0.61-1.12 3 T3 Total 64 ng/dL Low 87-178 4 Vitamin B12 And 08/14/2018 [facility] Vitamin B12 680 pg/mL N 180-[address] [place] [address] [phone] Folic Acid (Folate) 4.37 ng/mL >3.99 6 Vitamin D 1,25 08/14/2018 [facility] Vitamin D Total 34.3 ng/mL N 20-50 7 And Vitamin D,2 [facility] 25(Oh) [place] [address] [phone] Vitamin D, 1,25 Dihydroxy 52 pg/mL 18-78 8 Vitamin B6 08/14/2018 [facility] Pyridoxal 3 g/L Abnormal 5- 50 9 [facility] 5[place] [address] [phone] Pyridoxic Acid <2 g/L Abnormal 3-30 10 Iron & Iron Binding 08/14/2018 [facility] Iron 119 g/dL N 50 -212 [place] [address] [phone] Unsaturated Iron Binding 186 g/dL Total Iron Binding Capacity 305 g/dL N 250-450 Transferrin 218 mg/dL N 203-362 % Iron Saturation 39 % N 15-55 Laboratory test 08/14/2018 [facility] Ferritin 11.6 N 11-[address] ng/[place] [address] [phone] Laboratory test 12/06/2017 [facility] TSH (Thyroid 6.16 High 0.34-5.[address] Stim Horm) mcIU/[place] [address] [phone] Free T4 (Free Thyroxine) 0.59 ng/dL Low 0.61-1.12 Trileptal (Oxcarbazepine) 13 g/mL 3 - 35 12 Clobazam Frisium Level 12/06/2017 [facility] Clobazam 133 ng/mL 30-[address] [place] [address] [phone] Desmethylclobazam 1140 ng/mL 300-3000 13 CBC Auto Diff 07/18/2017 [facility] White Blood 6.3 10^3/uL N 3.5-10.[address] [place] [address] [phone] Red Blood Count 4.21 10^6/uL N 4.0-5.4 [...] Nucleated Red Blood Cells % 0.1 N Inr/Protime 07/18/2017 [facility] Inr 0.92 N 0.89-1.[address] [place] [address] [phone] Laboratory test 07/18/2017 [facility] Partial 32.2 seconds N 26.0-36.[address] [place] [address] PTT [phone] Urinalysis 07/18/2017 [facility] Urine Color Yellow N Profile [address] [place] [address] [phone] Urine Appearance Cloudy N Urine Specific [place] 1.015 N 1.010-1.030 Urine pH 5.0 N [...] Present Abnormal Absent Comp Metabolic Panel 07/18/2017 [facility] Sodium 137 mmol/L N 133-[address] [place], [place] [id number] [phone] Potassium 3.8 mmol/L N 3.5-5.0 Chloride 103 [...] 113.8 N >60 Egfr 146.3 N >60 14 Laboratory test 07/18/2017 [facility] Phosphorus 3.3 mg/dL N 2.5-5.[address] [place], [place] [address] [phone] Magnesium 2.1 mg/dL N 1.9-2.7 Thyroxine 4.33 g/mL Low 6.09-12.23 TSH (Thyroid Stim Horm) 3.84 mcIU/mL N 0.34-5.60 Prolactin 9.4 ng/mL N 1.0-25.0 Vitamin D Total 25(Oh) 55.0 ng/mL High 30-50 Urine Culture And 07/18/2017 [facility] Urine Culture SEE [address] [place] [address] BELOW [phone] Laboratory test 07/18/2017 [facility] Levetiracetam <2.0 Abnormal [address] (Keppra) g/[place] [address] [phone] Trileptal (Oxcarbazepine) 35 g/mL N 3 - 35 17 CBC Auto Diff 06/26/2017 [facility] White Blood 6.6 10^3/uL N 3.5-10.[address] [place] [address] [phone] Red Blood Count 3.70 10^6/uL Low 4.0-5.4 [...] Blood Cells % 0 N Inr/Protime 06/26/2017 [facility] Inr 0.92 N 0.89-1.[address] [place] [address] [phone] Laboratory test 06/26/2017 [facility] Lactic Acid 0.4 Low 0.5- 2.0 [address] mmol/[place] [address] [phone] Comp Metabolic 06/26/2017 [facility] Sodium 131 Low 133-[address] mmol/[place] [address] [phone] Chloride 102 mmol/L N 101-111 Co2 Carbon [...] 19 U/L N 13-39 Laboratory test 06/26/2017 [facility] Magnesium 2.0 mg/dL N 1.9-2.[address] [place] [address] [phone] CBC Auto Diff 05/27/2017 [facility] White Blood 5.6 N 3.5- 10.[address] Count 10^3/[place] [address] [phone] Red Blood Count 3.87 10^6/uL Low 4.0-5.4 [...] % 0 N Comp Metabolic Panel 05/27/2017 [facility] Sodium 137 mmol/L N 133-[address] [place] [address] [phone] Potassium 3.8 mmol/L N 3.5-5.0 Chloride 107 [...] 172.6 N >60 20 Laboratory test 05/27/2017 [facility] Magnesium 2.0 mg/dL N 1.9-2.[address] [place] [address] [phone] Laboratory test 05/20/2017 [facility] Lactic Acid 1.0 mmol/L N 0.5-2.0 [address] [place] [address] [phone] CBC Auto Diff 05/20/2017 [facility] White Blood 7.4 N 3.5- 10.[address] Count 10^3/[place] [address] [phone] Red Blood Count 3.95 10^6/uL Low 4.0-5.4 [...] % 0.1 N Comp Metabolic Panel 05/20/2017 [facility] Sodium 137 mmol/L N 133-[address] [place] [address] [phone] Potassium 3.6 mmol/L N 3.5-5.0 Chloride 106 [...] 152.1 N >60 22 Laboratory test 05/20/2017 [facility] Magnesium 2.2 mg/dL N 1.9-2.[address] [place] [address] [phone] Carbamazepine (Tegretol) 2.0 g/mL Low 4.0-12.0 Inr/Protime 05/20/2017 [facility] Inr 0.90 N 0.89-1.[address] [place] [address] [phone] Laboratory test 05/20/2017 [facility] Levetiracetam 28.8 N [address] (Keppra) g/[place] [address] [phone] CBC Auto Diff 05/05/2017 [facility] White Blood Count 6.8 N 3.5-10.[address] 10^3/[place] [address] [phone] Red Blood Count 3.98 10^6/uL Low 4.0-5.4 [...] Cells % 0.3 N Urinalysis Profile 05/05/2017 [facility] Urine Color Yellow N [address] [place] [address] [phone] Urine Appearance Cloudy N Urine Specific [place] 1.013 N 1.010-1.030 Urine pH 7.0 N [...] Present Abnormal Absent Comp Metabolic Panel 05/05/2017 [facility] Sodium 133 mmol/L N 133-145 [address] [place] [address] [phone] Potassium 3.7 mmol/L N 3.5-5.0 Chloride 103 [...] 180.6 N >60 25 Laboratory test 05/05/2017 [facility] Magnesium 1.9 mg/dL N 1.9-2.7 finding [address] [place] [address] [phone] TSH (Thyroid Stim Horm) 1.80 mcIU/mL N 0.34-5.60 Urine Culture And 05/05/2017 [facility] Urine Culture SEE RESULT [address] [place] [address] [phone] Laboratory test 05/05/2017 [facility] Levetiracetam 36.5 N [address] (Keppra) g/[place] [address] [phone] Inr/Protime 04/29/2017 [facility] Inr 0.91 N 0.[address] -1.1 [place] [address] [phone] CBC Auto Diff 04/29/2017 [facility] White Blood Count 9.2 N 3.5- [address] 10^3/uL 10.8 [place] [address] [phone] Red Blood Count 3.94 10^6/uL Low 4.0-5.4 [...] Cells % 0.2 N Laboratory test 04/29/2017 [facility] Lactic Acid 1.4 mmol/L N 0.5-2.0 [address] [place] [address] [phone] Comp Metabolic 04/29/2017 [facility] Sodium 136 mmol/L N 133- [address] [place] [address] [phone] Potassium 3.6 mmol/L N 3.5-5.0 Chloride 105 [...] 161.8 N >60 29 Laboratory test 04/29/2017 [facility] Magnesium 2.0 mg/dL N 1.9-2.[address] [place] [address] [phone] Levetiracetam (Keppra) 66.4 g/mL Abnormal 30 Trileptal (Oxcarbazepine) 28 g/mL N 3 - 35 31 Urine Drug 04/27/2017 [facility] Amphetamine Ur None Detected N None Detect SCR ED & [address] [address] [phone] Barbiturates Urine Screen None Detected N None Detect Benzodiazepine Urine Screen Presumptive Posi <SEE NOTE> Abnormal None Detect 32 Urine Cannabinoids Screen None Detected N None Detect Urine Cocaine Screen None Detected N None Detect Urine Opiates Screen Presumptive Posi <SEE NOTE> Abnormal None Detect 33 Urine Phencyclidine Screen None Detected N None Detect 34 Laboratory test 04/27/2017 [facility] Levetiracetam 46.6 Abnormal [address] (Keppra) g/[place] [address] [phone] Trileptal (Oxcarbazepine) 37 g/mL Abnormal 3 - 35 36 Inr/Protime 04/27/2017 [facility] Inr 0.93 N 0.89-1.[address] [place] [address] [phone] Laboratory test 04/27/2017 [facility] Partial 31.1 seconds N 26.0-36.[address] [place] [address] PTT [phone] CBC Auto Diff 04/27/2017 [facility] White Blood 6.5 10^3/uL N 3.5-10.[address] [place] [address] [phone] Red Blood Count 4.16 10^6/uL N 4.0-5.4 [...] Cells % 0.1 N Laboratory test 04/27/2017 [facility] Lactic Acid 0.6 mmol/L N 0.5-2.0 [address] [place], [place] [address] [phone] Urinalysis 04/27/2017 [facility] Urine Color Yellow N Profile [address] [place] [address] [phone] Urine Appearance Cloudy N Urine Specific [place] 1.018 N 1.010-1.030 Urine pH 7.0 N [...] Present Abnormal Absent Comp Metabolic Panel 04/27/2017 [facility] Sodium 135 mmol/L N 133-[address] [place] [address] [phone] Potassium 3.6 mmol/L N 3.5-5.0 Chloride 104 [...] N >60 Egfr 152.1 N >60 39 Laboratory test 04/27/2017 [facility] Magnesium 2.1 mg/dL N 1.9-2.[address] [place] [address] [phone] Creatine Kinase(CK) 51 U/L N 10-223 Alcohol < 10 mg/dL N <10 Urine Culture And 04/27/2017 [facility] Urine Culture SEE RESULT [address] [facility] [place] [address] [phone] Comp Metabolic 04/21/2017 [facility] Sodium 137 mmol/L N 133- [address] [place] [address] [phone] Potassium 3.3 mmol/L Low 3.5-5.0 Chloride 104 [...] 126.6 N >60 41 Laboratory test 04/21/2017 [facility] Magnesium 2.2 mg/dL N 1.9-2.[address] [place] [address] [phone] Creatine Kinase(CK) 66 U/L N 10-223 C Reactive Protein 1.60 mg/L N < 5.00 42 HCG < 0.60 mIU/mL N 43 CBC Auto Diff 04/21/2017 [facility] White Blood 8.3 10^3/uL N 3.5-10.[address] [place] [address] [phone] Red Blood Count 4.34 10^6/uL N 4.0-5.4 [...] Cells % 0 N Urinalysis Profile 04/21/2017 [facility] Urine Color Yellow N [address] [place] [address] [phone] Urine Appearance Cloudy N Urine Specific [place] 1.032 High 1.010-1.030 Urine pH 5.0 N [...] Cell Present Abnormal Absent Laboratory test 04/21/2017 [facility] Lactic Acid 1.0 mmol/L N 0.5-2.[address] [place] [address] [phone] Levetiracetam (Keppra) 35.0 g/mL N 45 Trileptal (Oxcarbazepine) 28 g/mL N 3 - 35 46 Laboratory test 03/19/2017 [facility] Clotest SEE RESULT [address] [place] [address] [phone] Laboratory test 11/23/2016 [facility] Trileptal 11 g/mL N 3 - [address] (Oxcarbazepine) [place] [address] [phone] Levetiracetam (Keppra) 63.6 g/mL Abnormal 49 Laboratory test 11/24/2015 [facility] Levetiracetam 21.7 g/mL N [address] (Keppra) [place] [address] [phone] Urinalysis 07/14/2015 [facility] Urine Color Yellow N Profile [address] [place] [address] [phone] Urine Appearance Cloudy N Urine Specific [place] 1.017 N 1.010-1.030 Urine pH 6.0 N [...] Cell Present Abnormal Absent Laboratory test 07/14/2015 [facility] Urine Culture And SEE RESULT [address] [place] [address] [phone] CBC Auto Diff 07/10/2015 [facility] White Blood Count 13.4 High 4.8- [address] 10^3/uL 10.8 [place] [address] [phone] Red Blood Count 3.16 10^6/uL Low 4.0-5.4 [...] Nucleated Red Blood Cells % 0.4 N Laboratory test 07/10/2015 [facility] Lactic Acid 1.4 mmol/L N 0.5-2.[address] [place] [address] [phone] Comp Metabolic 07/10/2015 [facility] Sodium 138 mmol/L N 133- [address] [place] [address] [phone] Potassium 2.9 mmol/L Low 3.5-5.0 Chloride 108 [...] 152.6 N >60 Egfr 196.3 N >60 52 Laboratory test 07/10/2015 [facility] C Reactive 106.54 mg/L High < 5.00 [address] [place] [address] [phone] Inr/Protime 07/10/2015 [facility] Inr 0.83 N 0.78-1.[address] 7 [place] [address] [phone] Laboratory test 07/10/2015 [facility] Partial 28.1 N 26.0-36. finding [address] Thrombo Time seconds 3 [place] [address] PTT [phone] Urinalysis 07/10/2015 [facility] Urine Color Yellow N Profile [address] [place] [address] [phone] Urine Appearance Cloudy N Urine Specific [place] 1.017 N 1.010-1.030 Urine pH 5.0 N [...] Epithelial Cell Present Abnormal Absent Laboratory test 07/10/2015 [facility] Urine Culture And SEE RESULT [address] [place] [address] [phone] Blood Culture SEE RESULT BELOW 55 CBC Auto 06/05/2015 [facility] White Blood 13.4 10^3/uL High 4.8-10.[address] [place] [address] [phone] Red Blood Count 3.53 10^6/uL Low 4.0-5.4 [...] Cells % 0 N Laboratory test 06/05/2015 [facility] Lactic Acid 0.9 mmol/L N 0.5-2.[address] [place] [address] [phone] Inr/Protime 06/05/2015 [facility] Inr 0.86 N 0.78-1.[address] [place] [address] [phone] Laboratory test 06/05/2015 [facility] Partial 28.3 seconds N 26.0-36.[address] [place] [address] PTT [phone] Comp Metabolic 06/05/2015 [facility] Sodium 134 mmol/L N 133- [address] [place] [address] [phone] Potassium 3.1 mmol/L Low 3.5-5.0 Chloride 106 [...] 201.1 N >60 Egfr 258.7 N >60 56 Laboratory test 06/05/2015 [facility] Creatine 72 U/L N 10- [address] Kinase(CK) [place] [address] [phone] Troponin-I (TnI) 0.00 ng/mL N <0.03 57 B-Type Natriuretic Peptide BNP 104 pg/mL High 58 CBC No Diff 01/12/2015 [facility] White Blood 8.5 10^3/uL N 4.8-10.[address] [place] [address] [phone] Red Blood Count 4.10 10^6/uL N 4.0-5.4 Hemoglobin 12.6 g/dL N 12.0-16.0 Hematocrit 37 % N 35-47 Mean Corpuscular Volume 90 fL N 80-97 Mean Corpuscular Hemoglobin 31 pg N 27-31 Mean Corpuscular HGB Conc 34 g/dL N 31-36 Red Cell Distribution Width 15 % N 10.5-15 Platelet Count 245 10^3/uL N 150-450 Mean Platelet Volume 9 um3 N 7.4-10.4 Laboratory test 01/12/2015 [facility] Rubella Equivocal N Immune [address] Screen IU/mL [place], [place] [phone] Type & Screen 01/12/2015 [facility] Patient O Positive N [address] [place] [address] [phone] Antibody Screen NEGATIVE N Laboratory test 01/12/2015 [facility] Hemoglobin A1c 4.9 % N Less than [address] 6.0 [place] [address] [phone] Levetiracetam 16.8 g/mL N 62 Oxcarbazepine 19 g/mL N 3 - 35 63 Syphilis Screen 01/12/2015 [facility] Syphilis IgG TNP N Nonreactive [address] [place], [place] [id number] [phone] RPR Nonreactive N Nonreactive RPR Titer TNP N Pediatric/Maternal YES N Laboratory 01/12/2015 [facility] Hepatitis B Nonreactive N Nonreactive [address] [place] [address] Antigen [phone] HIV 1/2 AB 01/12/2015 [facility] HIV 1 2 Nonreactive N Nonreactive [address] [place] [address] [phone] Laboratory 04/03/2014 [facility] Levetiracetam 8.5 g/mL Abnorma 66, test [address] l 67 [place] [address] [phone] Oxcarbazepine 23 g/mL N 3 - 35 68 Comp Metabolic Panel 04/03/2014 [facility] Sodium 138 mmol/L N 133-[address] [place] [address] [phone] Potassium 4.0 mmol/L N 3.7-5.6 Chloride 106 [...] N >60 69 Laboratory test finding 01/28/2014 [facility] Inr 0.96 0.85- 1.[address] [place] [address] [phone] Activated Partial Thrombo Time 32.4 seconds 24.0-36.1 Oncology CBC 01/28/2014 [facility] White Blood 4.9 10^3/uL 4.8-10.[address] [place] [address] [phone] Red Blood Count 4.32 10^6/uL 4.0-5.4 Hemoglobin [...] % 0-2 Iron & Iron Binding 01/28/2014 [facility] Iron 32 g/dL Low 50-212 Capacity [address] [place] [address] [phone] Unsaturated Iron Binding 387 g/dL Total Iron Binding Capacity 419 g/dL 250-450 % Iron Saturation 8 % Low 15-55 Laboratory test 01/28/2014 [facility] Ferritin < 10.0 ng/mL Low 11-307 finding [address] [place] [address] [phone] Vitamin B12 319 pg/mL 180-914 70 Laboratory test 12/01/2013 [facility] Levetiracetam 30.3 g/mL 71 finding [address] [place] [address] [phone] Oxcarbazepine 29 g/mL 3 - 35 72 Laboratory test 10/20/2013 [facility] Serum Negative Negative 73 finding 101 [facility] [place] [address] [phone] Blood Culture (SEE NOTE) 74 CBC Auto Diff 10/20/2013 [facility] White Blood 4.9 10^3/uL 4.8-10.8 [address] [facility] [place] [address] [phone] Red Blood Count 4.38 10^6/uL 4.0-5.4 Hemoglobin [...] Red Blood Cells % 0.1 Inr/Protime 10/20/2013 [facility] Inr 1.09 High 0.85-1.[address] [place] [address] [phone] Laboratory test 10/20/2013 [facility] Activated 31.6 24.0- 36.1 [address] [place] [address] Thrombo Time [phone] Comp Metabolic 10/20/2013 [facility] Sodium 134 mmol/L 133- [address] [place] [address] [phone] Potassium 3.3 mmol/L Low 3.5-5.0 Chloride 102 [...] Egfr Non- 97.0 >60 Egfr 124.7 >60 77 Laboratory test 10/20/2013 [facility] Lactic Acid 1.0 mmol/L 0.5-1.[address] [place] [address] [phone] HIV 1 2 AB Self Referred Nonreactive Nonreactive 78 Blood Culture (SEE NOTE) 79 Laboratory 09/18/2013 [facility] Levetiracetam 49.6 Abnormal [address] g/mL [place], [place] [id number] [phone] CBC Auto Diff 2013 [facility] White Blood Count 6.[address] 10^3/uL -10 [place] [address] .8 [phone] Red Blood Count 4.59 10^6/uL 4.0-5.4 Hemoglobin [...] Red Blood Cells % 0 Inr/Protime 2013 [facility] Inr 0.97 0.87-0.[address] [place] [address] [phone] Comp Metabolic Panel 2013 [facility] Sodium 137 mmol/L 133-145 [address] [place] [address] [phone] Potassium 3.1 mmol/L Low 3.5-5.0 Chloride 104 [...] Non- 97.0 >60 Egfr 124.7 >60 81 Urinalysis 08/12/2013 [facility] Urine Color Yellow [address] [place] [address] [phone] Urine Appearance Turbid Urine Specific [place] 1.024 1.010-1.030 Urine Esterase Negative Negative Urine Nitrate Negative Negative Urine Urobilinogen Negative E.U./dL Negative Urine Protein Negative mg/dL Negative Urine pH 6.5 5-9 Urine Blood Negative Negative Urine Ketones Negative mg/dL Negative Urine Bilirubin Negative Negative Urine Glucose Negative mg/dL Negative Laboratory test 08/12/2013 [facility] TSH (Thyroid 1.87 0.34- 5.60 finding 101 [facility] Stimulating miu/[place] [address] Horm) [phone] C Reactive Protein < 0.5 mg/dL Less than 0.5 Creatine Kinase 51 U/L 0-200 Levetiracetam 13.5 g/mL 82 Comp Metabolic Panel 08/12/2013 [facility] Sodium 139 mmol/L 133-145 [address] [place] [address] [phone] Potassium 4.1 mmol/L 3.5-5.0 Chloride 108 mmol/L [...] Non- 73.0 >60 Egfr 93.9 >60 83 Cell Morphology 08/12/2013 [facility] Microcytosis 1+ [address] [place] [address] [phone] CBC Auto Diff 08/12/2013 [facility] White Blood Count 6.4 4.8 -[address] 10^3/uL .8 [place] [address] [phone] Red Blood Count 4.72 10^6/uL 4.0-5.4 Hemoglobin [...] Nucleated Red Blood Cells % 0.1 Laboratory 08/12/2013 [facility] Serum Negative Negative 84 test finding [address] [place] [address] [phone] Laboratory 08/06/2013 [facility] Levetiracetam 18.2 g/mL 85 test finding [address] [place] [address] [phone] Oxcarbazepine 6 g/mL 3 - 35 86 Urinalysis 08/06/2013 [facility] Urine Color Yellow [address] [place] [address] [phone] Urine Appearance Clear Urine Specific [place] 1.016 1.010-1.030 Urine Esterase Negative Negative Urine Nitrate Negative Negative Urine Urobilinogen Negative E.U./dL Negative Urine Protein Negative mg/dL Negative Urine pH 8.0 5-9 Urine Blood Negative Negative Urine Ketones Negative mg/dL Negative Urine Bilirubin Negative Negative Urine Glucose Negative mg/dL Negative Laboratory test 07/15/2013 [facility] Cell Morphology 1+ 87 finding [address] [place] [address] [phone] Oncology CBC Auto 07/15/2013 [facility] White Blood Count 6.1 4.8-10 Diff 101 [facility] 10^3/uL .8 [place] [address] [phone] Red Blood Count 4.94 10^6/uL 4.0-5.4 Hemoglobin [...] % 0-6 Basophil % 0.9 % 0-2 Iron & Iron Binding 06/07/2013 [facility] Iron 94 g/dL 28- 170 Capacity [address] [place] [address] [phone] Unsaturated Iron Binding 335 g/dL Total Iron Binding Capacity 429 g/dL 250-450 % Iron Saturation 22 % 15-55 Laboratory test 06/07/2013 [facility] Ferritin < 10 ng/mL Low 11-307 finding [address] [place] [address] [phone] Vitamin B12 508 pg/mL 180-914 Laboratory test 06/07/2013 [facility] Levetiracetam 25.5 g/mL 88 finding [address] [place] [address] [phone] Manual 06/07/2013 [facility] Neutrophil % 48 % 38-83 Differential [address] [place] [address] [phone] Lymphocytes % 41 % 25-47 Monocytes % 9 % 0-13 Eosinophils % 2 % 0-6 Microcytosis 1+ CBC Auto Diff 06/07/2013 [facility] White Blood 6.6 10^3/uL 4.8-10.8 101 [facility] [place] [address] [phone] Red Blood Count 4.92 10^6/uL 4.0-5.4 Hemoglobin [...] 0-0.2 Abs Nucleated RBC 0 10^3/uL 1 Because ethnic data is not always [...] <15 (or dialysis) 2 Copy Result to: PHYLLIS SOTOIR ([id number]) 3 Copy Result to: KEITH SOTOOMIR ([id number]) 4 Copy Result to: PHYLLIS SOTOIR ([id number]) 5 Normal Range 180 to 914 Indeterminate Range 145 to 180 Deficient Range <145 6 Copy Result to: CHARLES RADOMIR ([id number]) 7 Copy Result to: KEITH SOTOOMIR ([id number]) 8 ADDITIONAL INFORMATION This test was developed and its performance characteristics determined by [facility] in a manner consistent with CLIA requirements. This test has not been cleared or approved by the U.S. Food and Drug Administration. Test Performed by: [facility] - [address] [address] 9 ADDITIONAL INFORMATION This test was developed and its performance characteristics determined by [facility] in a manner consistent with CLIA requirements. This test has not been cleared or approved by the U.S. Food and Drug Administration. 10 ADDITIONAL INFORMATION This test was developed and its performance characteristics determined by [facility] in a manner consistent with CLIA requirements. This test has not been cleared or approved by the U.S. Food and Drug Administration. Test Performed by: [facility] [place] [address] 11 Copy Result to: MADHAVI SOTO ([id number]) 12 ADDITIONAL INFORMATION This test was developed and its performance characteristics determined by [facility] in a manner consistent with CLIA requirements. This test has not been cleared or approved by the U.S. Food and Drug Administration. Test Performed by: [facility] [place] [address] 13 This test was developed and its performance characteristics determined by [employer]. It has not been cleared or approved by the Food and Drug Administration. Test Performed by: [facility] [address] [place] [address] 14 Because ethnic data is not always [...] SELENA DIANE : [address]: Jackson Louis Acct: [id number] Unit: [id number] AGE: 36 Location: LAB Re07/18/17 SEX: F Status: REG REF SPEC: [id number] TERRENCE: 07/18/[address]: Jackson Louis [facility] REQ: [id number] RECD: 07/18/17 STATUS: ANDERSON AMEZQUITA DR: Madhavi Soto MD PC _ SOURCE: URINE SPDESC: ORDERED: Urine Culture Procedure Result Reported Site Urine Culture Final 07/19/17- 1439 ML No Growth (<1,000 CFU/mL) * ML - MAIN LAB ([facility]) . END OF REPORT * ML=Testing performed at Main Lab DEPARTMENT OF PATHOLOGY, [address] [place] [address] Navneet Drake M.D. Director [facility] # [id number] 16 REFERENCE VALUE 12.0 - 46.0 ADDITIONAL INFORMATION This test was developed and its performance characteristics determined by [facility] in a manner consistent with CLIA requirements. This test has not been cleared or approved by the U.S. Food and Drug Administration. Test Performed by: [facility] - [address] [address] 17 ADDITIONAL INFORMATION This test was developed and its performance characteristics determined by [facility] in a manner consistent with CLIA requirements. This test has not been cleared or approved by the U.S. Food and Drug Administration. Test Performed by: [facility] [place] [address] 18 [facility] Severe Sepsis and Septic Shock [...] 5 Kidney failure <15 (or dialysis) 21 [facility] Severe Sepsis and Septic Shock [...] developed and its performance characteristics determined by [facility] in a manner consistent with CLIA requirements. This test has not been cleared or approved by the U.S. Food and Drug Administration. Test Performed by: [facility] - [address] [address] 24 *Ascorbic acid is present which may [...] (or dialysis) 26 SEE RESULT BELOW Name: ROXI,SELENA L : [address]: Jackie Snow MD Acct: [id number] Unit: [id number] AGE: 36 Location: ED Re05/05/17 SEX: F Status: DEP ER SPEC: [id number] TERRENCE: 05/05/17 [facility] [address]: Jackie Snow MD REQ: [id number] RECD: 05/05/17 STATUS: ANDERSON AMEZQUITA DR: Leatha Coles MD _ SOURCE: URINE [facility]: ORDERED: Urine Culture Procedure Result Reported Site Urine Culture Final 05/06/17- 1626 ML No growth of clinically significant organisms * ML - MAIN LAB ([facility]) . END OF REPORT * ML=Testing performed at Main Lab DEPARTMENT OF PATHOLOGY, [address], [place], [place] [address] Navneet Drake M.D. Director [facility] # [id number] 27 REFERENCE VALUE 12.0 - 46.0 ADDITIONAL INFORMATION This test was developed and its performance characteristics determined by [facility] in a manner consistent with CLIA requirements. This test has not been cleared or approved by the U.S. Food and Drug Administration. Test Performed by: [facility] - [address] Severe Sepsis and Septic Shock Management Bundle [...] developed and its performance characteristics determined by [facility] in a manner consistent with CLIA requirements. This test has not been cleared or approved by the U.S. Food and Drug Administration. Test Performed by: [facility] - [address] [address] 31 ADDITIONAL INFORMATION This test was developed and its performance characteristics determined by [facility] in a manner consistent with CLIA requirements. This test has not been cleared or approved by the U.S. Food and Drug Administration. Test Performed by: [facility] - [address] [address] 32 Presumptive Positive Presumptive positive results are [...] developed and its performance characteristics determined by [facility] in a manner consistent with CLIA requirements. This test has not been cleared or approved by the U.S. Food and Drug Administration. Test Performed by: [facility] - [address] [address] 36 ADDITIONAL INFORMATION This test was developed and its performance characteristics determined by [facility] in a manner consistent with CLIA requirements. This test has not been cleared or approved by the U.S. Food and Drug Administration. Test Performed by: [address] [address] 37 [facility] Severe Sepsis and Septic Shock [...] [address]: Flory Lei MD Acct: [id number] Unit: [id number] AGE: 36 Location: ED Re04/27/17 SEX: F Status: DEP ER SPEC: [id number] TERRENCE: 04/27/[address] [facility] [address]: Flory Lei MD REQ: [id number] RECD: 04/27/17 STATUS: ANDERSON AMEZQUITA DR: Leatha Coles MD _ SOURCE: URINE SPDESC: ORDERED: Urine Culture Procedure Result Reported Site Urine Culture Final 04/30/17- 0821 ML Organism 1 ESCHERICHIA COLI Ulysses Count 25-50,000 (Moderate) CFU/ML 1. ESCHERICHIA COLI [...] antibiotic reporting. * ML - MAIN LAB ([facility]) . END OF REPORT * ML=Testing performed at Main Lab DEPARTMENT OF PATHOLOGY, [address] [place] [address] Navneet Drake M.D. Director [facility] # [id number] 41 Because ethnic data is not always [...] levels of up to 20 mIU/mL 44 [facility] Severe Sepsis and Septic Shock Management Bundle Measure requires all lactic acids initially measuring >2.0 mmol/L be repeated. 45 REFERENCE VALUE 12.0 - 46.0 ADDITIONAL INFORMATION This test was developed and its performance characteristics determined by [facility] in a manner consistent with CLIA requirements. This test has not been cleared or approved by the U.S. Food and Drug Administration. Test Performed by: [facility] - [facility] [address] [place] [address] 46 ADDITIONAL INFORMATION This test was developed and its performance characteristics determined by [facility] in a manner consistent with CLIA requirements. This test has not been cleared or approved by the U.S. Food and Drug Administration. Test Performed by: [facility] - [address] [address] 47 SEE RESULT BELOW Name: SELENA DIANE : [address]: Jae George MD Acct: [id number] Unit: [id number] AGE: 36 Location: ENDO Re03/19/17 SEX: F Status: REG REF SPEC: [id number] TERRENCE: 03/19/17-12[address] [facility] [address]: Jae George MD REQ: [id number] RECD: 03/19/17 STATUS: ANDERSON AMEZQUITA DR: Leatha Soto MD PC _ SOURCE: GAS ANTRUM SPDESC: ORDERED: Clotest Procedure Result Reported Site Clotest Final 03/20/17714 ML Clotest Negative * ML - MAIN LAB ([facility]) . END OF REPORT * ML=Testing performed at Main Lab DEPARTMENT OF PATHOLOGY, [address] [place] [address] Navneet Drake M.D. Director [facility] # [id number] 48 ADDITIONAL INFORMATION This test was developed and its performance characteristics determined by [facility] in a manner consistent with CLIA requirements. This test has not been cleared or approved by the U.S. Food and Drug Administration. Test Performed by: [facility] - [address] [address] Orthodontist: Matti Gould II, M.D., Ph.D. 49 REFERENCE VALUE 12.0 - 46.0 ADDITIONAL INFORMATION This test was developed and its performance characteristics determined by [facility] in a manner consistent with CLIA requirements. This test has not been cleared or approved by the U.S. Food and Drug Administration. Test Performed by: [facility] [place] [address] Orthodontist: Matti Gould II, M.D., Ph.D. 50 REFERENCE VALUE 12.0 - 46.0 Test Performed by: [facility] [place] [address] Orthodontist: Matti Gould II, M.D., Ph.D. 51 SEE RESULT BELOW Name: SELENA DIANE : [address]: Matti Romero MD Acct: [id number] Unit: [id number] AGE: 34 Location: ED Re07/14/15 SEX: F Status: DEP ER SPEC: [id number] TERRENCE: 07/14/15-[address]: Matti Romero MD REQ: [id number] RECD: 07/14/15 STATUS: ANDERSON AMEZQUITA DR: Madhavi Soto MD Lucy Butcher MD _ SOURCE: URINE [facility]: ORDERED: Urine Culture Procedure Result Verified Site Urine Culture Final 07/16/15- 0950 ML Organism 1 ESCHERICHIA COLI Ulysses Count >100,000 (Many) CFU/ML 1. ESCHERICHIA COLI [...] performed at Main Lab DEPARTMENT OF PATHOLOGY, [address] [place] [address] Navneet Drake M.D. Director [facility] # [id number] 52 Because ethnic data is not always [...] 5 Kidney failure <15 (or dialysis) 53 Acute inflammation: >10.00 54 SEE RESULT BELOW Name: ROXI,SELENA L : [address]: Matti Romero MD Acct: [id number] Unit: [id number] AGE: 34 Location: ED Re07/10/15 SEX: F Status: REG ER SPEC: [id number] TERRENCE: 07/10/[address] [facility] [address]: Matti Romero MD REQ: [id number] RECD: 07/10/15 STATUS: ANDERSON AMEZQUITA DR: Madhavi Soto MD Lucy Butcher MD _ SOURCE: URINE SPDESC: ORDERED: Urine Culture Procedure Result Verified Site Urine Culture Final 07/12/15- 0943 ML Organism 1 ESCHERICHIA COLI Ulysses Count >100,000 (Many) CFU/ML 1. ESCHERICHIA COLI [...] antibiotic reporting. * ML - MAIN LAB ([facility]) . END OF REPORT * ML=Testing performed at Main Lab DEPARTMENT OF PATHOLOGY, [address] [place] [address] Navneet Drake M.D. Director [facility] # [id number] 55 SEE RESULT BELOW Name: SELENA DIANE : [address]: Matti Romero MD Acct: [id number] Unit: [id number] AGE: 34 Location: ED Re07/10/15 SEX: F Status: REG ER SPEC: [id number] TERRENCE: 07/10/[address] [facility] [address]: Matti Romero MD REQ: [id number] RECD: 07/10/15 STATUS: ANDERSON AMEZQUITA DR: Madhavi Soto MD PC Lucy Butcher MD [...] performed at Main Lab DEPARTMENT OF PATHOLOGY, [address] [place] [address] Navneet Drake M.D. Director [facility] # [id number] 56 Because ethnic data is not always [...] 5 Kidney failure <15 (or dialysis) 57 Reference Range and Interpretation: TnI (ng/mL) Interpretation Less Than 0.03 ng/mL Not supportive of diagnosis of [place] 0.03 - 0.50 ng/mL Indeterminate: suggest serial studies if clinically indicated. Greater than 0.5 ng/mL Consistent with diagnosis of [place] 58 >100 to <200 pg/mL: likely compensated congestive heart failure (CHF) 200 to 400 pg/mL: likely moderate CHF >400 pg/mL: likely moderate to severe CHF 59 please also fax results to Dr. Andriy Albrecht [phone] ~~please also fax results to Dr. Andriy Albrecht [phone] please also fax results to Dr. Andriy Albrecht [phone] please also fax results to Dr. Andriy Albrecht please also fax results to Dr. Andriy Albrecht [phone] please also fax results to Dr. Andriy Albrecht [phone] 61 Therapeutic target for the treatment of diabetes Mellitus patients is <7% HBA1C, and in selective patients <6.0%.Please refer to [employer] Diabetic care guidelines for further information. 62 REFERENCE VALUE 12.0 - 46.0 Test Performed by: [place] [address] Orthodontist: Matti Gould II, M.D., Ph.D. 63 Test Performed by: [place] [address] Orthodontist: Matti Gould II, M.D., Ph.D. 64 please also fax results to Dr. Andriy Albrecht [phone] YES 65 It is recognized that currently [...] -- 12.0 - 46.0 Test Performed by: [place] [address] Orthodontist: Stevo Cuba III, M.D. 68 Test Performed by: [place] [address] Orthodontist: Stevo Cuba III, M.D. 69 Because ethnic [...] -- 12.0 - 46.0 Test Performed by: [place] [address] Orthodontist: Stevo Cuba III, M.D. 72 Test Performed by: [place] [address] Orthodontist: Stevo R. Cockerill, III, M.D. 73 This test detects intact HCG only and is indicated for the early detection of . 74 RUN DATE: 10/25/13 [facility] LAB LIVE PAGE 1 RUN TIME: 12[address] [place], [place] [address] Specimen Inquiry Name: SELENA DIANE : [address]: Nathen Green Acct: [id number] Unit: [id number] AGE: 33 Location: ED Re10/20/13 SEX: F Status: DEP ER SPEC: [id number] TERRENCE: 10/20/13-[address]: Yvette CHOWDHURY REQ: [id number] RECD: 10/20/13 STATUS: ANDERSON AMEZQUITA DR: [facility] Madhavi Soto MD PC Lucy Butcher MD _ SOURCE: BLOOD,VENO SPDESC: ORDERED: Blood Cult Procedure Result Verified Site Aerobic Culture Bottle Final 10/25/13- 1213 ML No Growth Day 5 Anaerobic Culture Bottle Final 10/25/13- 1213 ML No Growth Day 5 END OF REPORT * ML=Testing performed at Main Lab DEPARTMENT OF PATHOLOGY, [address] [place] [address] Navneet Drake M.D. Director [facility] Permit #[id number] 75 Please note the change in the INR reference range effective 13. 76 Please note the change in the PTT reference range effective 13. 77 Because ethnic data is not always readily [...] 15-29 5 Kidney failure <15 (or dialysis) 78 It is recognized that currently available assays [...] 95% confidence interval of 99.78 to 99.96%. 79 RUN DATE: 10/25/13 [facility] LAB LIVE PAGE 1 RUN TIME: [address] [place] [address] Specimen Inquiry Name: SELENA DIANE : [address]: Nathen Green Acct: [id number] Unit: [id number] AGE: 33 Location: ED Re10/20/13 SEX: F Status: DEP ER SPEC: [id number] TERRENCE: 10/20/13-[address] [facility] [address]: Yvette CHOWDHURY REQ: [id number] RECD: 10/20/13 STATUS: ANDERSON AMEZQUITA DR: [facility] Madhavi Butcher MD _ SOURCE: BLOOD,VENO SPDESC: ORDERED: Blood Cult Procedure Result Verified Site Aerobic Culture Bottle Final 10/25/13- 1206 ML No Growth Day 5 Anaerobic Culture Bottle Final 10/25/13- 1206 ML No Growth Day 5 END OF REPORT * ML=Testing performed at Main Lab DEPARTMENT OF PATHOLOGY, [address] [place] [address] Navneet Drake M.D. Director [facility] Permit #[id number] 80 -- REFERENCE VALUE -- 12.0 - 46.0 Test Performed by: [address] [address] Orthodontist: Stevo Cuba III, M.D. 81 Because ethnic [...] 5 Kidney failure <15 (or dialysis) 82 -- REFERENCE VALUE -- 12.0 - 46.0 Test Performed by: [place] [address] Orthodontist: Stevo Cuba III, M.D. 83 Because ethnic data is not always [...] 5 Kidney failure <15 (or dialysis) 84 This test detects intact HCG only and is indicated for the early detection of . 85 -- REFERENCE VALUE -- 12.0 - 46.0 Test Performed by: [address] [address] Orthodontist: Stevo Cuba III, M.D. 86 Test Performed by: [address] [address] Orthodontist: Stevo Cuba III, M.D. 87 @07/15/13 1121: Cell Morphology added. RFLXG=RBC MORPH. 88 -- REFERENCE VALUE -- 12.0 - 46.0 Test Performed by: [address] [address] Orthodontist: Stevo Cuba III, M.D. Procedures Date Code Description Status 05/09/2018 90617 EEG Monitoring Computer Completed 04/29/2018 27523 Neurostimulator Pulse Generator Analysis Simple Completed W/Reprogramming 04/11/2018 77430906 Mammogram Completed 03/05/2018 18492 Neurostimulator Pulse Generator Analysis Simple Completed W/Reprogramming 10/31/2017 29533 Neurostimulator Pulse Generator Analysis Simple Completed W/Reprogramming 10/08/2017 15343 Neurostimulator Pulse Generator Analysis Simple Completed W/Reprogramming 09/18/2017 40210 Neurostimulator Pulse Generator Analysis Simple Completed W/Reprogramming 09/04/2017 98909 Neurostimulator Pulse Generator Analysis Simple Completed W/Reprogramming 08/21/2017 44291 Neurostimulator Pulse Generator Cranial Nerve First Completed Hour 07/31/2017 74109 EEG Monitoring Computer Completed 04/11/2017 23649 EEG Monitoring & Video Recording Completed 04/10/2017 51134 EEG Monitoring & Video Recording Completed 04/09/2017 41757 EEG Monitoring & Video Recording Completed 04/08/2017 49229 EEG Monitoring & Video Recording Completed 04/07/2017 99099 EEG Monitoring & Video Recording Completed 04/06/2017 28611 EEG Monitoring & Video Recording Completed 02/06/2017 47705 EEG Monitoring Computer Completed 11/08/2016 13086 ECHO Transthorasic Realtime 2D W Doppler & Color Flow Completed Hosp Encounters Type Date Location Provider Dx Diagnosis Office Visit 11/07/2018 [facility] E[facility] Ortega G40.219 Local- rel symptc 11:15a [facility] epi w cmplx part seiz, ntrct, w/o stat epi E03.9 Hypothyroidism, unspecified R53.83 Other fatigue Office Visit 09/27/2018 Luz Ortega G40.219 Local-rel 10:00a [facility] symptc epi w [facility] cm[facility]x part seiz, ntrct, w/o stat epi R63.4 Abnormal weight loss E03.9 Hypothyroidism, unspecified Z96.89 Presence of other specified functional implants Office Visit 08/14/2018 [facility] Ezequiel Malik G40.219 Local-rel 11:00a [facility] epi w cmplx part seiz, ntrct, w/o stat epi R63.4 Abnormal weight loss E03.9 Hypothyroidism, unspecified F41.9 Anxiety disorder, unspecified Office Visit 07/31/2018 8:00a [facility] Ezequiel DanielaJose G40.219 Local- [facility] M.D. 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 F41.9 Anxiety disorder, unspecified Z96.89 Presence of other specified functional implants Office Visit 04/05/2018 [facility] Leatha Coles G40.219 Local-rel 2:00p Clinic MD rosana hauser cmplx part seiz, ntrct, w/o stat epi Z96.89 Presence of other specified functional implants Office Visit 03/05/2018 [facility] Leatha Coles G40.219 Local-rel 3:00p Clinic MD rosana hauser cmplx part seiz, ntrct, w/o stat epi 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 F41.9 Anxiety disorder, unspecified Office Visit 12/04/2017 [facility] Leatha Coles, G40.219 Local-rel 2:30p Clinic MD rosana cruz w cmplx part seiz, ntrct, w/o stat epi 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 F41.9 Anxiety disorder, unspecified R63.4 Abnormal weight loss Office Visit 10/31/2017 [facility] Leatha Coles G40.219 Local-rel 9:30a Clinic MD rosana cruz w cmplx part [...] Coles, G40.219 Local-rel 1:30p Clinic MD rosana cruz w cmplx part seiz, ntrct, w/o stat epi G43.109 Migraine with aura, not intractable, w/o status migrainosus 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 F41.9 Anxiety disorder, unspecified Office Visit 09/04/2017 [facility] Leatha Coles, H53.34 Suppression of 8:30a Clinic binocular vision G40.219 Local-rel rosana epi w cmplx part seiz, ntrct, w/o [...] sys F41.9 Anxiety disorder, unspecified 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 Office Visit 06/25/2017 [facility] Leatha Coles, G40.219 Local-rel 9:00a Clinic MD rosana cruz w cmplx part seiz, ntrct, w/o stat epi 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 F41.9 Anxiety disorder, unspecified [facility] Local-rel symptc [facility] MD cruz w cmplx part seiz, ntrct, w/o stat epi 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 F41.9 Anxiety disorder, unspecified Office Visit 05/01/2017 12:00p [facility], G40.219 Local-rel symptc [facility] MD cruz w cmplx part seiz, ntrct, w/o stat epi 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 F41.9 Anxiety disorder, unspecified Office Visit 04/12/2017 [facility] Leatha Coles, G40.219 Local-rel 11:16a Clinic MD rosana cruz w cmplx part seiz, ntrct, w/o stat epi Office Visit 04/11/2017 [facility] Leatha Coles, G40.219 Local-rel 11:16a Clinic MD rosana cruz w cmplx part seiz, ntrct, w/o stat epi Office Visit 04/10/2017 [facility] Leatha Coles, G40.219 Local-rel 11:15a Clinic MD rosana cruz w cmplx part seiz, ntrct, w/o stat epi Office Visit 04/09/2017 [facility] Leatha Coles, G40.219 Local-rel 11:15a Clinic MD rosana cruz w cmplx part [...] and circ sys Office Visit 03/28/2017 12:45p [facility] Leatha Coles, G40.219 Local-rel symptc [facility] MD anthony hauser cmplx part seiz, ntrct, w/o stat epi F41.9 Anxiety disorder, unspecified Office Visit 02/27/2017 10:30a [facility] Leatha Coles, G40.219 Local-rel symptc [facility] cmplx part seiz, ntrct, w/o stat epi F41.9 Anxiety disorder, unspecified 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 Steve R56.9 Unspecified 9:30a [facility] LUCIANA renteria Q27.30 Arteriovenous malformation, site unspecified Office 10/24/2016 [facility] Ezequiel Malik G40.219 Local-rel symptc Visit 1:12p [facility] w cmplx part seiz, ntrct, w/o stat epi Office 10/23/2016 [facility] Ezequiel Malik G40.219 Local-rel symptc Visit 1:08p [facility] epi w cmplx part seiz, ntrct, w/o stat epi Office 10/23/2016 [facility] Italo Q27.30 Arteriovenous Visit 9:29a [facility] [place], malformation, N.P. site unspecified G40.909 Epilepsy, unsp, not intractable, without status epilepticus Office Visit 08/04/2016 10:30a [facility] Leatha Coles G40.219 Local-rel symptc [facility] MD epi w cmplx part seiz, ntrct, w/o stat epi Z79.899 Other assisted (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 R51 Headache Office Visit 04/10/2016 2:30p [facility] Elier Coles, G40.219 Local-rel symptc [facility] epi w cmplx part seiz, ntrct, w/o stat epi 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 Office Visit 01/10/2016 10:30a Luz Coles, G40.219 Local-rel symptc [facility] epi w cmplx part seiz, ntrct, w/o stat epi 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 Office Visit 11/01/2015 11:30a [facility] Elier Butcher G40.211 Local-rel [facility] Chele symptc epi w cmplx partial seiz, ntrct, w stat epi Office Visit 11/25/2014 11:15a Luz Butcher, 345.41 Local-Related [facility] M.D. Epilepsy W/Intractable Epilepsy V22.2 State Incidental Normal 784.0 Headache Office Visit 04/02/2014 Luz Butcher, 345.41 Local-Related 3:45p Neurologic M.D. Epilepsy [facility] W/Intractable Epilepsy 784.0 Headache Office Visit 12/15/2013 1:45p Luz Butcher, 345.11 Epilepsy [facility] M.DJose Convulsive Intractable V15.29 Personal History Of Surgery To Other Organs Office Visit 10/13/2013 11:15a Angela Odonnell.91 Epilepsy Unspec [facility] M.D. W/ Intractable Office Visit 08/01/2013 2:00p Angela Odonnell.91 Epilepsy Unspec [facility] M.D. W/ Intractable Office Visit 04/23/2013 2:00p Angela Odonnell.90 Epilepsy Unspec [facility] M.D. W/O Intractable Office Visit 12/25/2012 2:15p Angela Odonnell.41 Local-Related [facility] M.D. Epilepsy W/Intractable Epilepsy V22.2 State Incidental Normal Office Visit 08/21/2012 4:00p [facility] Lucy Butcher, 345.91 Epilepsy Unspec [facility] W/ Intractable Plan of Treatment Future Appointment(s):03/20/2019 12:45 pm - Nathen Ortega M.D. at [facility]03/12/2019 - [place] N.P.R53.83 Other wrxktndD54.9 Hypothyroidism, uffauywlsleB89.219 Localization-related (focal) ( partial) symptomatic epilepsyFollow up:Dr Ortega in the 1-2 weeks ok to overbook needs VNS interrogated,
--- NOTE | 2019-04-07 19:27 | ED ---
Neurological HPI - HPI Summary HPI Summary: A 38 y/o F with pert PMHx: sz had a witnessed seizure lasting approx 5 minutes which spontaneously resolved [employer]ER. The sz was witnessed by her father. She had her typical aura. Associated sx: LOC which is usual with her sz, fatigue, BHATIA which is her normal post-sz BHATIA and rated 10/10. Denies tongue bite, urinary incontinence. Patient is post-ichtal at bedside. She was last seen on 03/06/19 for sz. She is unsure the last time she saw Dr. Mccarthy, neuro, but she is scheduled to see him on 04/15/19. She ran out of her medications and won't be able to get refills until 04/09. She did take her morning doses. She takes Depakote, Aptiom, Briviact. She has a vagus nervestimulator. - History of Current Complaint Chief Complaint: EDSeizure Stated Complaint: SEIZURES PER EMS Time Seen by Provider: 04/07/19 19:08 Hx Obtained From: Patient Hx Last Menstrual Period: non Onset/Duration: Sudden Onset, Resolved Current Severity: None - sz resolved Number of Seizures: 1 Pain Intensity: 10 - BHATIA Pain Scale Used: 0-10 Numeric Associated Signs and Symptoms: Positive: Headache, Loss of Consciousness. Negative: Incontinent Bladder/Bowel, Dental Malocclusion - neg: tongue bite - Additional Pertinent History Primary Care Physician: CORAL - Allergy/Home Medications Allergies/Adverse Reactions: Allergies Allergy/AdvReac Type Severity Reaction Status Date / Time bee venom protein (honey bee) Allergy Hives Verified 02/01/19 10:52 cephalexin [From Keflex] Allergy Hives Verified 02/01/19 10:52 morphine Allergy Hives Verified 02/01/19 10:52 mushroom Allergy Hives Verified 02/01/19 10:52 Sulfa (Sulfonamide Allergy Rash Verified 02/01/19 10:52 Antibiotics) enviromental Allergy Eyes Uncoded 02/01/19 10:52 Itchy/Swollen/Red/Watery PMH/Surg Hx/FS Hx/Imm Hx Previously Healthy: No Endocrine/Hematology History: Reports: Hx Thyroid Disease, Hx Anemia - IV iron tx Denies: Hx Anticoagulant Therapy, Hx Diabetes Cardiovascular History: Denies: Hx Congestive Heart Failure, Hx Hypertension, Hx Pacemaker/ICD Comment Only: Other Cardiovascular Problems/Disorders - Arteriovenous malformation - Sx repair in 2008. Right atrial enlargement. 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 RT TEMPORAL LOBE IN 2008 [facility] (removed scar tissue). 5 CSECTIONS. VNM simulater.07/2017 Hx Anesthesia Reactions: No - Immunization History Date of Tetanus Vaccine: unk Date of Influenza Vaccine: fall 2017 Infectious Disease History: No Infectious Disease History: Denies: Hx Hepatitis, Hx Human Immunodeficiency Virus (HIV), Traveled Outside the [place] in Last 30 Days - Family History Known Family History: Positive: Cardiac Disease, Hypertension, Other - cancer; denies AVM in the family Negative: Diabetes - Social History Occupation: Unemployed Lives: With Family Alcohol Use: None Hx Substance Use: Yes Substance Use Type: Reports: Marijuana Substance Use Comment - Amount & Last Used: occassional Hx Tobacco Use: Yes Smoking Status (MU): Former Smoker Have You Smoked in the Last Year: Yes - had of close relative on 2016 so smoked to cope Review of Systems Positive: Fatigue ENT: Other - neg: tongue bite Negative: incontinence Neurological: Other - pos: sz, resolved Positive: Headache, Syncope - LOC All Other Systems Reviewed And Are Negative: Yes Physical Exam - Summary Physical Exam Summary: Appearance: well appearing, no pain distress Skin: warm, dry, reflects adequate perfusion Head/face: normal Eyes: EOMI, CLAY ENT: mucous membranes moist Neck: supple, non-tender Respiratory: CTA, breath sounds present Cardiovascular: RRR, pulses symmetrical Abdomen: non-tender, soft Bowel Sounds: present Musculoskeletal: normal, strength/ROM intact Neuro: normal, sensory motor intact, A&Ox3 Triage Information Reviewed: Yes Vital Signs On Initial Exam: Initial Vitals Temp Pulse Resp BP Pulse Ox 98.2 F 126 14 105/91 99 04/07/19 18:45 04/07/19 18:45 04/07/19 18:45 04/07/19 18:45 04/07/19 18:45 Vital Signs Reviewed: Yes Diagnostics - Vital Signs Vital Signs Temp Pulse Resp BP Pulse Ox 04/07/19 18:48 22 105/91 04/07/19 18:45 98.2 F 126 14 105/91 99 - Laboratory Result Diagrams: 04/07/19 19:24 04/07/19 19:24 Lab Statement: Any lab studies that have been ordered have been reviewed, and results considered in the medical decision making process. Course/Dx - Course Course Of Treatment: Nurse's notes reviewed. Patient is well-known to the ER. She presents after stated seizure. Neurologic normal now without evidence of shoulder dislocation, tongue injury or incontinence. She reports that she just ran out of her medications and doesn't have any for tonight. We do not have her specific medication but have related Keppra. The other 2 medications she has. A short course of this will be prescribed until she can see her neurologist on the . - Differential Dx Differential Diagnoses Neuro: Positive: Other - Medication noncompliance, alcohol ingestion, sleep deprivation - Diagnoses Provider Diagnoses: Generalized seizure, Epilepsy Discharge - Sign-Out/Discharge Documenting (check all that apply): Patient Departure - D/C Patient Received Moderate/Deep Sedation with Procedure: No - Discharge Plan Condition: Improved Disposition: HOME Prescriptions: levETIRAcetam [Roweepra] 1,000 mg PO BID #3 tab Patient Education Materials: Epilepsy (ED) Referrals: Yoni Ortega MD [Medical Doctor] - Madhavi Mayorga MD [Primary Care Provider] - Additional Instructions: Call your neurologist or primary care physician first thing in the morning and see if he can get your medicine sooner. I gave you Wrote until the taking be used instead. Return if worse, new symptoms, repeat seizures or other concerns. - Billing Disposition and Condition Condition: IMPROVED Disposition: Home - Attestation Statements Document Initiated by Scribe: Yes Documenting Scribe: SooYoung LynneMadison Healthkira Provider For Whom Scribe is Documenting (Include Credential): Dr. Michael Joe MD Scribe Attestation: I, Tanesha Timmons, scribed for Dr. Michael Joe MD on 04/08/19 at 0135. Scribe Documentation Reviewed: Yes Provider Attestation: The documentation as recorded by the scribe, Tanesha Timmons accurately reflects the service I personally performed and the decisions made by me, Dr. Michael Joe MD Status of Scribe Document: Viewed
[2019-04-07] MEDS ORDERED: levETIRAcetam TAB* 500 MG PO ONE (19:29)
[2019-04-07] MEDS ORDERED: ESLICARBAZEPINE PO ONE (19:30)
[2019-04-07] MEDS ORDERED: ACETATE PO ONE (19:30)
[2019-04-07] MEDS ORDERED: Divalproex ER TAB(*) 500 MG PO ONE (19:31)
[2019-04-07 19:34] LABS: ABS Eosinophils 0.2 10^3/ul (0-0.6); ABS Lymphocytes 1.4 10^3/ul (1.0-4.8); ABS Monocytes 0.5 10^3/ul (0-0.8); ABS Neutrophils 2.3 10^3/ul (1.5-7.7); Hematocrit 37 % (35-47); Hemoglobin 12.5 g/dL (12.0-16.0); Lymphocyte % 31.8 %; Mean Corpuscular HGB Conc 34 g/dL (31-36); Mean Corpuscular Hemoglobin 30 pg (27-31); Mean Corpuscular Volume 88 fL (80-97); Mean Platelet Volume 7.4 fL (7.4-10.4); Platelet Count 180 10^3/uL (150-450); Red Blood Count 4.16 10^6 /uL (3.70-4.87); Red Cell Distribution Width 14 % (10.5-15); White Blood Count 4.4 10^3/uL (3.5-10.8)
[2019-04-07 19:51] LABS: BUN/Creatinine Ratio 8.1 (8-20); Calcium 8.7 mg/dL (8.6-10.3); EGFR African American 131.1 (>60); EGFR Non-African American 108.3 (>60); Potassium 3.9 mmol/L (3.5-5.0)
[2019-04-07 21:13] VITALS: BP 86/52
== END 2019-04-07 21:10 | disposition home or self-care (01) ==
LOC: ED 18:38
DX: G40.409 Other generalized epilepsy and epileptic syndromes, not intractable, without status epilepticus (principal); E07.9 Disorder of thyroid, unspecified; Z88.2 Allergy status to sulfonamides; Z88.5 Allergy status to narcotic agent; Z91.14 Patient's other noncompliance with medication regimen; Z87.891 Personal history of nicotine dependence; D64.9 Anemia, unspecified; F32.9 Major depressive disorder, single episode, unspecified
CPT/HCPCS: 36415; 80048; 80164; 85025; 96360; 99283; A9270-GY

== ENCOUNTER 2019-05-31 18:49 | Emergency (ER) | payer OTHER ==
[2019-05-31] MEDS ORDERED: Lorazepam PYXIS KEY ONE (18:52)
[2019-05-31] MEDS ORDERED: LORazepam INJ* 2 MG/ML 1 ML VIAL ONE (18:53)
[2019-05-31] MEDS ORDERED: LORazepam INJ* 2 MG/ML 1 ML VIAL IV PUSH ONE (19:01)
[2019-05-31] MEDS ORDERED: NS 0.9% 1000 ML** 1,000 ML IV ONE (19:15)
--- NOTE | 2019-05-31 19:26 | ED ---
Neurological HPI - HPI Summary HPI Summary: This patient is a 38 year old F brought to ED via EMS with a chief complaint of witnessed 3 minute seizure at 1900 today. Patient recently ran out of her medication and has not been taking Aptiom for the past 24 hours. Patient was at home with her parents when she began to feel an aura. She reports getting seizures pretty often. Most of the time they are full blown. In the room she reports feeling sore in her legs and hands and reports weakness. She reports this is a normal seizure for her. She has not been sick recently. Per patient, her heart rate does not usually run high following a seizure. She reports feeling dry lately. The patient rates the pain 10/10 in severity. Symptoms aggravated by nothing. Symptoms alleviated by nothing. - History of Current Complaint Chief Complaint: EDSeizure Stated Complaint: SEIZURES PER EMS Time Seen by Provider: 05/31/19 19:18 Hx Obtained From: Patient Hx Last Menstrual Period: non Onset/Duration: Resolved Timing: Constant - 3 minute episode Onset Severity: Severe Current Severity: Severe Number of Seizures: 1 Pain Intensity: 10 Pain Scale Used: 0-10 Numeric Character: Weak, Other: - Sore in arms and legs Aggravating: Nothing Alleviating: Nothing Associated Signs and Symptoms: Positive: Weakness, Change in Medication - Not taking her medication within the last 24 hours as she usually does Related Hx: Seizure - Additional Pertinent History Primary Care Physician: [id number] - Allergy/Home Medications Allergies/Adverse Reactions: Allergies Allergy/AdvReac Type Severity Reaction Status Date / Time bee venom protein (honey bee) Allergy Hives Verified 02/01/19 10:52 cephalexin [From Keflex] Allergy Hives Verified 02/01/19 10:52 morphine Allergy Hives Verified 02/01/19 10:52 mushroom Allergy Hives Verified 02/01/19 10:52 Sulfa (Sulfonamide Allergy Rash Verified 02/01/19 10:52 Antibiotics) enviromental Allergy Eyes Uncoded 02/01/19 10:52 Itchy/Swollen/Red/Watery PMH/Surg Hx/FS Hx/Imm Hx Endocrine/Hematology History: Reports: Hx Thyroid Disease, Hx Anemia - IV iron tx Denies: Hx Anticoagulant Therapy, Hx Diabetes Cardiovascular History: Denies: Hx Congestive Heart Failure, Hx Hypertension, Hx Pacemaker/ICD Comment Only: Other Cardiovascular Problems/Disorders - Arteriovenous malformation - Sx repair in 2008. Right atrial enlargement. 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 RT TEMPORAL LOBE IN 2008 [place] (removed scar tissue). 5 CSECTIONS. VNM simulater.07/2017 Hx Anesthesia Reactions: No - Immunization History Date of Tetanus Vaccine: unk Date of Influenza Vaccine: fall 2017 Infectious Disease History: No Infectious Disease History: Denies: Hx Hepatitis, Hx Human Immunodeficiency Virus (HIV), Traveled Outside the [place] in Last 30 Days - Family History Known Family History: Positive: Cardiac Disease, Hypertension, Other - cancer; denies AVM in the family Negative: Diabetes - Social History Alcohol Use: None Hx Substance Use: Yes Substance Use Type: Reports: Marijuana Substance Use Comment - Amount & Last Used: occassional Hx Tobacco Use: Yes Smoking Status (MU): Former Smoker Have You Smoked in the Last Year: Yes - had of close relative on 2016 so smoked to cope Review of Systems ENT: Other - Dry Musculoskeletal: Other - Sore in arms and legs All Other Systems Reviewed And Are Negative: Yes Physical Exam - Summary Physical Exam Summary: Appearance: Well-appearing, Well-nourished, lying in bed comfortable Skin: Warm, dry, no obvious rash Eyes: sclera anicteric, no conjunctival pallor ENT: mucous membranes moist Neck: deferred Respiratory: No signs of respiratory distress Cardiovascular: Appears well perfused, pulses are nml Abdomen: deferred Musculoskeletal: Moving all 4 extremities without obvious discomfort Neurological: Awake and alert, mentation is normal, speech is fluent and appropriate Psychiatric: affect is normal, does not appear anxious or depressed Triage Information Reviewed: Yes Vital Signs On Initial Exam: Initial Vitals Resp 25 05/31/19 18:55 Vital Signs Reviewed: Yes Diagnostics - Vital Signs Vital Signs Temp Pulse Resp BP Pulse Ox 05/31/19 18:59 98.7 F 145 25 128/91 97 05/31/19 18:55 25 - Laboratory Result Diagrams: 05/31/19 19:40 05/31/19 19:40 Lab Statement: Any lab studies that have been ordered have been reviewed, and results considered in the medical decision making process. Course/Dx - Course Course Of Treatment: This patient is a 38 year old F brought to ED via EMS with a chief complaint of witnessed 3 minute seizure at 1900 today. In the ED course , patient received fluids and Ativan. Blood work and UA obtained. Patient will be discharged home with dx of seizure disorder. Patient understands and agrees with this plan. - Diagnoses Provider Diagnoses: Seizure disorder Discharge - Sign-Out/Discharge Documenting (check all that apply): Patient Departure - Discharge Patient Received Moderate/Deep Sedation with Procedure: No - Discharge Plan Condition: Good Disposition: HOME Patient Education Materials: Epilepsy (ED) Referrals: Madhavi Mayorga MD [Primary Care Provider] - If Needed - Attestation Statements Document Initiated by Scribe: Yes Documenting Scribe: Harris Mitchell Provider For Whom Maria De Jesusibtyler is Documenting (Include Credential): Marvin Bernard MD Scribe Attestation: Harris Bolton, scribed for Marvin Bernard MD on 05/31/19 at 3692. Status of Scribe Document: Ready
[2019-05-31] MEDS: NS 0.9% 1000 ML** 2,000 ML IV ONE ×2 (19:31→21:17)
[2019-05-31 19:47] LABS: ABS Eosinophils 0.2 10^3/ul (0-0.6); ABS Lymphocytes 1.6 10^3/ul (1.0-4.8); ABS Monocytes 0.5 10^3/ul (0-0.8); Eosinophil % 5.4 %; Hematocrit 38 % (35-47); Hemoglobin 12.8 g/dL (12.0-16.0); Lymphocyte % 37.4 %; Mean Corpuscular HGB Conc 34 g/dL (31-36); Mean Corpuscular Hemoglobin 30 pg (27-31); Mean Corpuscular Volume 88 fL (80-97); Mean Platelet Volume 7.6 fL (7.4-10.4); Platelet Count 202 10^3/uL (150-450); Red Blood Count 4.31 10^6 /uL (3.70-4.87); Red Cell Distribution Width 14 % (10-15); White Blood Count 4.4 10^3/uL (3.5-10.8)
[2019-05-31 19:50] LABS: Urine Appearance Cloudy; Urine Bilirubin Negative (Negative); Urine Blood Negative (Negative); Urine Color Amber; Urine Glucose Negative (Negative); Urine Ketones Negative (Negative); Urine Nitrite Negative (Negative); Urine Protein Negative (Negative); Urine Specific Gravity 1.025 (1.010-1.030); Urine Urobilinogen Negative (Negative)
[2019-05-31 20:04] LABS: ALT 8 U/L (7-52); AST 13 U/L (13-39); Albumin 3.9 g/dL (3.2-5.2); Alkaline Phosphatase 53 U/L (34-104); Anion Gap 10 mmol/L (2-11); BUN/Creatinine Ratio 9.8 (8-20); Blood Urea Nitrogen 6 mg/dL (6-24); CO2 Carbon Dioxide 23 mmol/L (22-32); Calcium 8.6 mg/dL (8.6-10.3); Chloride 105 mmol/L (101-111); EGFR African American 133.5 (>60); EGFR Non-African American 110.4 (>60); Glucose 142 mg/dL (70-100); Potassium 3.3 mmol/L (3.5-5.0); Sodium 138 mmol/L (135-145); Total Protein 5.9 g/dL (6.4-8.9)
[2019-05-31 20:11] LABS: Urine Benzodiazepine Screen Presumptive Positive (None Detect); Urine Opiates Screen None Detected (None Detect)
[2019-05-31 20:45] LABS: Alcohol < 10 mg/dL (<10)
[2019-05-31 22:56] VITALS: BP 104/70
== END 2019-05-31 21:45 | disposition home or self-care (01) ==
LOC: ED 18:49
DX: G40.909 Epilepsy, unspecified, not intractable, without status epilepticus (principal); Z88.1 Allergy status to other antibiotic agents; Z88.5 Allergy status to narcotic agent; Z88.2 Allergy status to sulfonamides; Z87.891 Personal history of nicotine dependence
CPT/HCPCS: 36415; 80053; 80164; 80307; 80320; 81003; 85025; 96361; 96374; 99283; G0480; J2060

== ENCOUNTER 2019-06-22 11:21 | Emergency (ER) | payer OTHER ==
--- NOTE | 2019-06-22 11:32 | ED ---
Neurological HPI - HPI Summary HPI Summary: This patient is a 38 year old F presenting to [facility] by EMS with a chief complaint of a full body unwitnessed seizure today at 0830 and a seizure 2-3 days ago. Pt has a Hx of seizures and has a vagal nerve stimulator, which she reports has not been working properly. Pt reports an aura with copper smell and metallic taste, pulsating in left ear, SOB, BHATIA, weakness on left side, burning sensation on left side of face (this symptom is not usual, and it is the first time it occurred).She says she woke up fully after the seizure. Patient reports abdominal pain. Patient denies incontinence, CP, urinary symptoms. Pts neurologist is Dr. Ortega and Dr. Das. Per triage, pain intensity is 7/10. Per EMS, they used the vagal nerve stimulator twice, her vitals were stable, BP was 99/67, she had no seizures while with them, and was not given any medication. Vital signs while in room: HR 92 bpm, BP 99/65, O2 sat 95% - History of Current Complaint Stated Complaint: "SEIZURE PER EMS" Hx Obtained From: Patient, EMS, Medical Records - prior [facility] Onset/Duration: Sudden Onset, Started hours ago Timing: Intermittent Episodes Lasting: - minutes Onset Severity: Severe Current Severity: Severe Seizure Severity: Severe Number of Seizures: 2 - one today, one 2-3 days ago Neurological Deficit Location: Facial, LUE, LLE Headache Location: Diffuse (Right), Diffuse (Left) Pain Intensity: 7 Pain Scale Used: 0-10 Numeric Character: Weak Seizure Character: Total-Clonic Aggravating: Nothing Alleviating: Nothing Associated Signs and Symptoms: Positive: Headache, Weakness - left side, Seizure , Shortness of Breath. Negative: Incontinent Bladder/Bowel, Chest Pain Related Hx: Seizure - Additional Pertinent History Primary Care Physician: [id number] - Allergy/Home Medications Allergies/Adverse Reactions: Allergies Allergy/AdvReac Type Severity Reaction Status Date / Time bee venom protein (honey bee) Allergy Hives Verified 06/22/19 11:36 cephalexin [From Keflex] Allergy Hives Verified 06/22/19 11:36 morphine Allergy Hives Verified 06/22/19 11:36 mushroom Allergy Hives Verified 06/22/19 11:36 Sulfa (Sulfonamide Allergy Rash Verified 06/22/19 11:36 Antibiotics) enviromental Allergy Eyes Uncoded 06/22/19 11:36 Itchy/Swollen/Red/Watery Home Medications: Home Medications Brivaracetam [Briviact] 100 - 150 mg PO SEE INSTRUCTIONS 06/22/19 [History Confirmed 06/22/19] Eslicarbazepine Acetate (NF) [Aptiom] 800 mg PO BID 06/22/19 [History Confirmed 06/22/19] Sertraline* [Zoloft*] 100 mg PO DAILY 06/22/19 [History Confirmed 06/22/19] PMH/Surg Hx/FS Hx/Imm Hx Previously Healthy: No Endocrine/Hematology History: Reports: Hx Thyroid Disease, Hx Anemia - IV iron tx Denies: Hx Anticoagulant Therapy, Hx Diabetes Cardiovascular History: Denies: Hx Congestive Heart Failure, Hx Hypertension, Hx Pacemaker/ICD Comment Only: Other Cardiovascular Problems/Disorders - Arteriovenous malformation - Sx repair in 2008. Right atrial enlargement. 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 RT TEMPORAL LOBE IN 2008 [place] (removed scar tissue). 5 CSECTIONS. VNM simulater.07/2017 Hx Anesthesia Reactions: No - Immunization History Date of Tetanus Vaccine: unk Date of Influenza Vaccine: fall 2017 Infectious Disease History: No Infectious Disease History: Denies: Hx Hepatitis, Hx Human Immunodeficiency Virus (HIV) - Family History Known Family History: Positive: Cardiac Disease, Hypertension, Other - cancer; denies AVM in the family Negative: Diabetes - Social History Alcohol Use: None Hx Substance Use: Yes Substance Use Type: Reports: Marijuana Substance Use Comment - Amount & Last Used: occassional Hx Tobacco Use: Yes Smoking Status (MU): Former Smoker Have You Smoked in the Last Year: Yes - had of close relative on 2016 so smoked to cope Review of Systems Positive: Other - pos -aura with copper smell and metallic test Negative: Chest Pain Positive: Shortness Of Breath Positive: Abdominal Pain Genitourinary: Negative Negative: incontinence Neurological: Other - pos - burning sensation on left side of face Positive: Headache, Weakness - left side All Other Systems Reviewed And Are Negative: Yes Physical Exam - Summary Physical Exam Summary: Appearance: Ill-appearing, moderate pain distress, well-nourished. Skin: Warm, color reflects adequate perfusion, dry Head: Normal Head/Face inspection, atraumatic Eyes: Conjunctiva clear ENT: Normal inspection Neck: Supple, no nodes, no JVD Respiratory: Lungs clear, normal breath sounds, no respiratory distress Cardio: RRR, No murmur, pulses normal, brisk capillary refill Abdomen: Soft, nontender Bowel sounds: Present Musculoskeletal: Strength Intact/ROM intact, no calf tenderness, no edema, Vagal nerve stimulator in left infra clavicular. Psychological: Normal Neuro: Alert, muscle tone normal, no focal deficit Triage Information Reviewed: Yes Vital Signs On Initial Exam: Initial Vital Signs Pulse 92 06/22/19 11:30 Pulse Ox 95 06/22/19 11:30 Vital Signs Reviewed: Yes Diagnostics - Laboratory Result Diagrams: 06/22/19 12:18 06/22/19 12:18 Lab Statement: Any lab studies that have been ordered have been reviewed, and results considered in the medical decision making process. Re-Evaluation - Re-Evaluation First Eval Re-Evaluation Time: 13:26 Change: Unchanged Comment: Nurse Alia reports pt is sleeping. Second Eval Re-Evaluation Time: 14:21 Change: Improved Comment: Pt is asleep, rouses to verbal and tactile stimuli, states she feels fine; no neuro deficit noted. Pt agrees with discharge. Third Eval Re-Evaluation Time: 15:20 Change: Improved Comment: Pt continues to be sleepy, but is now awake enough for her father to take her home. She is agreeable to discharge. Course/Dx - Course Course Of Treatment: 38 yo F with hx seizures and vagal nerve stimulator presents stating she had a seizure today today, and 2 days ago, and that her VNS is not working. Initial physical exam findings include that pt has a vagal nerve stimulator in left infra clavicular area. Pt was given lorazepam 2mg IV for seizure treatment and prophylaxis, and she slept but was rousable throughout her ED stay. Pt medications reviewed this visit. Nurses notes reviewed. Allergies noted. Checked I-STOP. Blood work obtained. Total protein is 6.1, Globulin is 1.9, otherwise no significant abnormalities. UA obtained and is normal. U tox is also negative. Pt's valproic acid level is 51 (when therapeutic is up to 50). Pt is asleep, rouses to verbal and tactile stimuli, states she feels fine; no neuro deficit noted. Pt agrees with discharge. In the ED course the patient was given fluids, and Lorazepam. Patient will be discharged with follow up from Dr. Ortega and Dr. Mayorga. The patient is agreeable with this plan. - Differential Dx Differential Diagnoses Neuro: Positive: Alcohol Abuse, Anxiety, Cerebrovascular Accident, Drug Toxicity, Intracranial Bleed, Labyrinthitis, Metabolic Abnormality, Seizure Disorder - Diagnoses Provider Diagnoses: Seizure disorder, Status post VNS (vagus nerve stimulator) placement, Seizure, History of arteriovenous malformation (AVM) Discharge ED - Sign-Out/Discharge Documenting (check all that apply): Patient Departure - Discharge Patient Received Moderate/Deep Sedation with Procedure: No - Discharge Plan Condition: Stable Disposition: HOME Patient Education Materials: Epilepsy (ED) Referrals: Yoni Ortega MD [Medical Doctor] - (as scheduled ) Madhavi Mayorga MD [Primary Care Provider] - Additional Instructions: Your depakote level was normal and your other labs were unremarkable. You should follow up with Dr. Ortega and Dr. Coles as scheduled to continue to have your vagal stimulator evaluated. Return to the ER if any new or worsening symptoms. - Billing Disposition and Condition Condition: STABLE Disposition: Home - Attestation Statements Document Initiated by Scribe: Yes Documenting Scribe: Yenifer Nesbitt Provider For Whom Elle is Documenting (Include Credential): Dr. Flory Lei MD Scribe Attestation: Yenifer Bolton scribed for Dr. Flory Lei MD on 07/15/19 at 0010. Scribe Documentation Reviewed: Yes Provider Attestation: The documentation as recorded by the scribe, Yenifer Nesbitt accurately reflects the service I personally performed and the decisions made by me, Dr. Flory Lei MD Status of Elle Document: Viewed
[2019-06-22] MEDS ORDERED: LORazepam INJ* 2 MG/ML 1 ML VIAL IV ONE (11:51)
[2019-06-22] MEDS ORDERED: NS 0.9% 1000 ML** 1,000 ML IV ONE (11:51)
[2019-06-22] MEDS ORDERED: Lorazepam PYXIS KEY ONE (11:56)
[2019-06-22 12:33] LABS: ABS Eosinophils 0.3 10^3/ul (0-0.6); ABS Lymphocytes 1.9 10^3/ul (1.0-4.8); ABS Monocytes 0.5 10^3/ul (0-0.8); ABS Neutrophils 1.2 10^3/ul (1.5-7.7); Eosinophil % 7.5 %; Hematocrit 37 % (35-47); Hemoglobin 12.6 g/dL (12.0-16.0); Lymphocyte % 49.3 %; Mean Corpuscular HGB Conc 34 g/dL (31-36); Mean Corpuscular Hemoglobin 30 pg (27-31); Mean Corpuscular Volume 88 fL (80-97); Mean Platelet Volume 7.7 fL (7.4-10.4); Nucleated Red Blood Cells % 0.1; Platelet Count 214 10^3/uL (150-450); Red Blood Count 4.22 10^6 /uL (3.70-4.87); Red Cell Distribution Width 14 % (10-15)
[2019-06-22 12:41] LABS: INR 1.03 (0.82-1.09)
[2019-06-22 12:53] LABS: ALT 8 U/L (7-52); AST 14 U/L (13-39); Albumin 4.2 g/dL (3.2-5.2); Albumin/Globulin Ratio 2.2 (1-3); Alkaline Phosphatase 44 U/L (34-104); Anion Gap 6 mmol/L (2-11); BUN/Creatinine Ratio 13.7 (8-20); Blood Urea Nitrogen 7 mg/dL (6-24); CO2 Carbon Dioxide 26 mmol/L (22-32); Chloride 103 mmol/L (101-111); Creatine Kinase 46 U/L (10-223); EGFR African American 164.2 (>60); EGFR Non-African American 135.7 (>60); Globulin 1.9 g/dL (2-4); Glucose 79 mg/dL (70-100); Potassium 3.7 mmol/L (3.5-5.0); Sodium 135 mmol/L (135-145); Total Protein 6.1 g/dL (6.4-8.9)
[2019-06-22 13:30] LABS: Alcohol < 10 mg/dL (<10)
[2019-06-22 14:42] LABS: Urine Appearance Cloudy; Urine Bilirubin Negative (Negative); Urine Blood Negative (Negative); Urine Color Yellow; Urine Glucose Negative (Negative); Urine Ketones Negative (Negative); Urine Nitrite Negative (Negative); Urine Protein Negative (Negative); Urine Specific Gravity 1.016 (1.010-1.030); Urine Urobilinogen Negative (Negative)
[2019-06-22 14:56] LABS: Urine Benzodiazepine Screen None Detected (None Detect); Urine Opiates Screen None Detected (None Detect)
[2019-06-22 16:36] VITALS: BP 102/61
== END 2019-06-22 16:35 | disposition home or self-care (01) ==
LOC: ED 11:21
DX: G40.409 Other generalized epilepsy and epileptic syndromes, not intractable, without status epilepticus (principal); R06.02 Shortness of breath; E07.9 Disorder of thyroid, unspecified; D64.9 Anemia, unspecified; F32.9 Major depressive disorder, single episode, unspecified; Z88.1 Allergy status to other antibiotic agents; Z88.5 Allergy status to narcotic agent; Z88.2 Allergy status to sulfonamides; Z79.899 Other long term (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; Z87.891 Personal history of nicotine dependence
CPT/HCPCS: 36415; 80053; 80164; 80307; 80320; 81003; 82550; 83605; 83735; 85025; 85610; 85730; 96361; 96374; 99283; G0480; J2060

== ENCOUNTER 2019-07-25 19:38 | Emergency (ER) | payer OTHER ==
--- NOTE | 2019-07-25 19:48 | ED ---
Neurological HPI - HPI Summary HPI Summary: This patient is a 38 year old female brought in by EMS presenting to [facility] with a chief complaint of seizure. The patient often gets seizures and usually gets an aura before the seizures. Her family called EMS when she was getting the aura and EMS witnessed the full seizure, which lasted about 90 seconds. She states she is still in the aura which she describes as a metallic or fruity taste and left arm weakness. She reports headache. She denies fever . Medications reviewed. Allergies noted. She is A&O X 3. - History of Current Complaint Stated Complaint: SEIZURE PER EMS Time Seen by Provider: 07/25/19 19:46 Hx Obtained From: Patient Hx Last Menstrual Period: non Onset Severity: Moderate Number of Seizures: 1 Pain Scale Used: 0-10 Numeric - Additional Pertinent History Primary Care Physician: CORAL - Allergy/Home Medications Allergies/Adverse Reactions: Allergies Allergy/AdvReac Type Severity Reaction Status Date / Time bee venom protein (honey bee) Allergy Hives Verified 06/22/19 11:36 cephalexin [From Keflex] Allergy Hives Verified 06/22/19 11:36 morphine Allergy Hives Verified 06/22/19 11:36 mushroom Allergy Hives Verified 06/22/19 11:36 Sulfa (Sulfonamide Allergy Rash Verified 06/22/19 11:36 Antibiotics) enviromental Allergy Eyes Uncoded 06/22/19 11:36 Itchy/Swollen/Red/Watery PMH/Surg Hx/FS Hx/Imm Hx Endocrine/Hematology History: Reports: Hx Thyroid Disease, Hx Anemia - IV iron tx Denies: Hx Anticoagulant Therapy, Hx Diabetes Cardiovascular History: Denies: Hx Congestive Heart Failure, Hx Hypertension, Hx Pacemaker/ICD Comment Only: Other Cardiovascular Problems/Disorders - Arteriovenous malformation - Sx repair in 2008. Right atrial enlargement. 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 RT TEMPORAL LOBE IN 2008 [place] (removed scar tissue). 5 CSECTIONS. VNM simulater.07/2017 Hx Anesthesia Reactions: No - Immunization History Date of Tetanus Vaccine: unk Date of Influenza Vaccine: fall 2017 Infectious Disease History: Denies: Hx Hepatitis, Hx Human Immunodeficiency Virus (HIV) - Family History Known Family History: Positive: Cardiac Disease, Hypertension, Other - cancer; denies AVM in the family Negative: Diabetes - Social History Alcohol Use: None Hx Substance Use: Yes Substance Use Type: Reports: Marijuana Substance Use Comment - Amount & Last Used: occassional Hx Tobacco Use: Yes Smoking Status (MU): Former Smoker Have You Smoked in the Last Year: Yes - had of close relative on 2016 so smoked to cope Review of Systems Negative: Fever Neurological: Other - Seizure, Seizure aura Positive: Headache, Weakness - Left arm All Other Systems Reviewed And Are Negative: Yes Physical Exam - Summary Physical Exam Summary: Constitutional: Well-developed, Well-nourished, Alert. (-) Distressed Skin: Warm, Dry HENT: Normocephalic; Atraumatic Eyes: Conjunctiva normal Neck: Musculoskeletal ROM normal neck. (-) JVD, (-) Stridor, (-) Tracheal deviation Cardio: Rhythm regular, rate tachycardic, Heart sounds normal; Intact distal pulses; The pedal pulses are 2+ and symmetric. Radial pulses are 2+ and symmetric. (-) Murmur Pulmonary/Chest wall: Effort normal. (-) Respiratory distress, (-) Wheezes, (-) Rales Abd: Soft. (-) Tenderness, (-) Distension, (-) Guarding, (-) Rebound Musculoskeletal: (-) Edema Lymph: (-) Cervical adenopathy Neuro: Alert, Oriented x3, Strength normal, Cranial nerves II-XII are grossly intact. (-) Dysmetria, (-) Nystagmus, (-) Ataxia by finger to nose testing, (-) Sensory deficit. Psych: Mood and affect Normal Triage Information Reviewed: Yes Vital Signs On Initial Exam: Temp Pulse Resp BP Pulse Ox 98.0 F 123 19 131/81 96 07/25/19 19:47 07/25/19 19:47 07/25/19 19:47 07/25/19 19:47 07/25/19 19:47 Vital Signs Reviewed: Yes Diagnostics - Laboratory Result Diagrams: 07/25/19 20:05 07/25/19 20:05 Lab Statement: Any lab studies that have been ordered have been reviewed, and results considered in the medical decision making process. Re-Evaluation - Re-Evaluation First Eval Re-Evaluation Time: 21:20 Change: Improved Comment: Patient feels better after the ativan and would like to go home. She will follow up with her neurologist next week. Course/Dx - Course Course Of Treatment: She is here after having a seizure at home. Patient has severe epilepsy with an implanted Magnant is on multiple medications. Upon arrival, patient still felt her seizure aura. Patient is given 1 mg of Ativan IV with improvement in her symptoms. Patient had blood cultures grossly unremarkable. Patient is tachycardic on arrival but that improved with IV fluids and time. Patient was encouraged to call her neurologist in the morning to let them know the events of the night. Patient appointment next week with them for further medication management. - Diagnoses Provider Diagnoses: Seizures Discharge ED - Sign-Out/Discharge Documenting (check all that apply): Patient Departure - Discharge Patient Received Moderate/Deep Sedation with Procedure: No - Discharge Plan Condition: Stable Disposition: HOME Patient Education Materials: Epilepsy (ED) Referrals: Madhavi Mayorga MD [Primary Care Provider] - Additional Instructions: Follow up with your neurologist next week. Return to ED with new or worsening symptoms. - Billing Disposition and Condition Condition: STABLE Disposition: Home - Attestation Statements Document Initiated by Maria De Jesusibe: Yes Documenting Scribe: Preston Lipscomb Provider For Whom Elle is Documenting (Include Credential): Reji Espinoza MD Scribe Attestation: Preston Bolton, scribed for Reji Espinoza MD on 07/25/19 at 2132. Scribe Documentation Reviewed: Yes Provider Attestation: The documentation as recorded by the Preston weller accurately reflects the service I personally performed and the decisions made by me, Reji Espinoza MD Status of Scribe Document: Viewed
[2019-07-25] MEDS ORDERED: Lorazepam PYXIS KEY PRN (19:54)
[2019-07-25] MEDS ORDERED: LORazepam INJ* 2 MG/ML 1 ML VIAL IV PUSH ONE (19:54)
[2019-07-25] MEDS ORDERED: NS 0.9% 1000 ML** 1,000 ML IV ONE (19:55)
[2019-07-25] MEDS ORDERED: Lorazepam PYXIS KEY ONE (19:58)
[2019-07-25 20:12] LABS: ABS Eosinophils 0.2 10^3/ul (0-0.6); ABS Lymphocytes 2.7 10^3/ul (1.0-4.8); ABS Monocytes 0.6 10^3/ul (0-0.8); Eosinophil % 2.4 %; Hematocrit 37 % (35-47); Hemoglobin 12.6 g/dL (12.0-16.0); Lymphocyte % 41.8 %; Mean Corpuscular HGB Conc 34 g/dL (31-36); Mean Corpuscular Hemoglobin 30 pg (27-31); Mean Corpuscular Volume 88 fL (80-97); Platelet Count 253 10^3/uL (150-450); Red Blood Count 4.23 10^6 /uL (3.70-4.87); Red Cell Distribution Width 14 % (10-15); White Blood Count 6.5 10^3/uL (3.5-10.8)
[2019-07-25 20:39] LABS: ALT 8 U/L (7-52); AST 17 U/L (13-39); Albumin 4.4 g/dL (3.2-5.2); Albumin/Globulin Ratio 2.1 (1-3); Alkaline Phosphatase 51 U/L (34-104); Anion Gap 9 mmol/L (2-11); BUN/Creatinine Ratio 7.5 (8-20); Blood Urea Nitrogen 4 mg/dL (6-24); CO2 Carbon Dioxide 24 mmol/L (22-32); Chloride 98 mmol/L (101-111); EGFR African American 157.1 (>60); EGFR Non-African American 129.8 (>60); Globulin 2.1 g/dL (2-4); Glucose 101 mg/dL (70-100); Potassium 3.3 mmol/L (3.5-5.0); Sodium 131 mmol/L (135-145); Total Protein 6.5 g/dL (6.4-8.9)
[2019-07-25 20:45] LABS: HCG Pregnancy < 0.60 mIU/mL
[2019-07-25 21:49] VITALS: BP 116/81
== END 2019-07-25 21:48 | disposition home or self-care (01) ==
LOC: ED 19:38
DX: R56.9 Unspecified convulsions (principal); E07.9 Disorder of thyroid, unspecified; D64.9 Anemia, unspecified; F32.9 Major depressive disorder, single episode, unspecified; Z87.891 Personal history of nicotine dependence; Z79.899 Other long term (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; Z88.1 Allergy status to other antibiotic agents; Z88.5 Allergy status to narcotic agent; Z88.2 Allergy status to sulfonamides
CPT/HCPCS: 36415; 80053; 84702; 85025; 96361; 96374; 99282; J2060

== ENCOUNTER 2019-07-31 17:01 | Emergency (ER) | payer OTHER ==
[2019-07-31 17:29] LABS: ABS Basophils 0.1 10^3/ul (0-0.2); ABS Eosinophils 0.2 10^3/ul (0-0.6); ABS Lymphocytes 2.1 10^3/ul (1.0-4.8); ABS Monocytes 0.5 10^3/ul (0-0.8); ABS Neutrophils 1.8 10^3/ul (1.5-7.7); Eosinophil % 3.8 %; Hematocrit 40 % (35-47); Hemoglobin 13.8 g/dL (12.0-16.0); Lymphocyte % 44.3 %; Mean Corpuscular HGB Conc 34 g/dL (31-36); Mean Corpuscular Hemoglobin 30 pg (27-31); Mean Corpuscular Volume 87 fL (80-97); Mean Platelet Volume 7.3 fL (7.4-10.4); Platelet Count 259 10^3/uL (150-450); Red Blood Count 4.61 10^6 /uL (3.70-4.87); Red Cell Distribution Width 14 % (10-15); White Blood Count 4.7 10^3/uL (3.5-10.8)
[2019-07-31 17:34] LABS: INR 1.03 (0.82-1.09)
[2019-07-31] MEDS ORDERED: clonazePAM TAB(*) 0.5 MG PO ONE (17:42)
[2019-07-31] MEDS ORDERED: Divalproex DR TAB(*) 250 MG PO ONE (17:42)
--- NOTE | 2019-07-31 17:42 | ED ---
Neurological HPI - HPI Summary HPI Summary: The patient is a 38 y/o F arriving by ambulance to [facility] with a chief complaint of seizure with aura this morning and this afternoon. She reports that her seizures have seemed to be worsening after she has been unable to get her Aptiom because it is not stocked at her pharmacy, and her stimulator hasnt been working well. Today, her seizures were accompanied by blurred vision and an aura with taste and smell changes. She was recently here almost a week ago for similar symptoms. She states that she sees Dr. Das in [place], but she has more frequently been seeing Italo Park, neuro [employer] PROGRAM COORDINATOR. She is otherwise medication compliant with her Depakote. Currently, her symptoms are rated 0/10 in severity. She notes there is increased weakness in the left leg. PMHx: thyroid disease, anemia, headaches, seizures, depression. Former smoker, no EtOH , marijuana use. Medications reviewed. Allergies noted. - History of Current Complaint Chief Complaint: EDSeizure Stated Complaint: SEIZURES PER EMS Time Seen by Provider: 07/31/19 17:09 Hx Obtained From: Patient Hx Last Menstrual Period: non Onset/Duration: Sudden Onset Timing: Sudden Onset Onset Severity: Moderate Current Severity: Mild Seizure Severity: Moderate Number of Seizures: 2 Neurological Deficit Location: LLE Pain Intensity: 0 Pain Scale Used: 0-10 Numeric Character: Other: - aura, normal seizure for her Aggravating: Medication Change - unable to take Aptiom Alleviating: Nothing Associated Signs and Symptoms: Positive: Weakness - LLE, Seizure. Negative: Dizziness, Nausea/Vomiting, Chest Pain, Shortness of Breath - Additional Pertinent History Primary Care Physician: CORAL - Allergy/Home Medications Allergies/Adverse Reactions: Allergies Allergy/AdvReac Type Severity Reaction Status Date / Time bee venom protein (honey bee) Allergy Hives Verified 06/22/19 11:36 cephalexin [From Keflex] Allergy Hives Verified 06/22/19 11:36 morphine Allergy Hives Verified 06/22/19 11:36 mushroom Allergy Hives Verified 06/22/19 11:36 Sulfa (Sulfonamide Allergy Rash Verified 06/22/19 11:36 Antibiotics) enviromental Allergy Eyes Uncoded 06/22/19 11:36 Itchy/Swollen/Red/Watery Home Medications: Home Medications Divalproex ER TAB(*) [Depakote ER TAB(*)] 500 mg PO BEDTIME 07/31/19 [History Confirmed 07/31/19] PMH/Surg Hx/FS Hx/Imm Hx Endocrine/Hematology History: Reports: Hx Thyroid Disease, Hx Anemia - IV iron tx Denies: Hx Anticoagulant Therapy, Hx Diabetes Cardiovascular History: Denies: Hx Congestive Heart Failure, Hx Hypertension, Hx Pacemaker/ICD Comment Only: Other Cardiovascular Problems/Disorders - Arteriovenous malformation - Sx repair in 2008. Right atrial enlargement. 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 RT TEMPORAL LOBE IN 2008 [place] (removed scar tissue). 5 CSECTIONS. VNM simulater.07/2017 Hx Anesthesia Reactions: No - Immunization History Date of Tetanus Vaccine: unk Date of Influenza Vaccine: fall 2017 Infectious Disease History: No Infectious Disease History: Denies: Hx Hepatitis, Hx Human Immunodeficiency Virus (HIV), Traveled Outside the [place] in Last 30 Days - Family History Known Family History: Positive: Cardiac Disease, Hypertension, Other - cancer; denies AVM in the family Negative: Diabetes - Social History Alcohol Use: None Hx Substance Use: Yes Substance Use Type: Reports: Marijuana Substance Use Comment - Amount & Last Used: occassional Hx Tobacco Use: Yes Smoking Status (MU): Former Smoker Have You Smoked in the Last Year: Yes - had of close relative on 2016 so smoked to cope Review of Systems Negative: Fever, Chills Positive: Blurred Vision. Negative: Erythema Negative: Sore Throat Negative: Chest Pain Negative: Shortness Of Breath, Cough Negative: Abdominal Pain, Vomiting, Nausea Negative: dysuria, flank pain Negative: Myalgia Negative: Rash Neurological: Other - Positive: seizure activity with aura. Negative: dizziness. Positive: Weakness - in LLE All Other Systems Reviewed And Are Negative: Yes Physical Exam - Summary Physical Exam Summary: Constitutional: Well-developed, Well-nourished, Alert. (-) Distressed Skin: Warm, Dry HENT: Normocephalic; Atraumatic Eyes: Conjunctiva normal Neck: Musculoskeletal ROM normal neck. (-) JVD, (-) Stridor, (-) Tracheal deviation Cardio: Rhythm regular, rate normal, Heart sounds normal; Intact distal pulses; The pedal pulses are 2+ and symmetric. Radial pulses are 2+ and symmetric. (-) Murmur Pulmonary/Chest wall: Effort normal. (-) Respiratory distress, (-) Wheezes, (-) Rales Abd: Soft. (-) Tenderness, (-) Distension, (-) Guarding, (-) Rebound Musculoskeletal: (-) Edema Lymph: (-) Cervical adenopathy Neuro: Alert, Oriented x3, Strength normal, Cranial nerves II-XII are grossly intact. (-) Dysmetria, (-) Nystagmus, (-) Ataxia by finger to nose testing, (-) Sensory deficit. Claim of paralysis on left side is not supported by exam. Psych: Mood and affect Normal Triage Information Reviewed: Yes Vital Signs On Initial Exam: Initial Vitals Temp Pulse Resp BP Pulse Ox 98.1 F 79 16 111/77 98 07/31/19 17:12 07/31/19 17:12 07/31/19 17:12 07/31/19 17:12 07/31/19 17:12 Vital Signs Reviewed: Yes Diagnostics - Vital Signs Vital Signs Temp Pulse Resp BP Pulse Ox 07/31/19 17:12 98.1 F 79 16 111/77 98 - Laboratory Lab Results: Lab Results 07/31/19 Range/Units 17:20 WBC 4.7 (3.5-10.8) 10^3/uL RBC 4.61 (3.70-4.87) 10^6 /uL Hgb 13.8 (12.0-16.0) g/dL Hct 40 (35-47) % MCV 87 (80-97) fL MCH 30 (27-31) pg MCHC 34 (31-36) g/dL RDW 14 (10-15) % Plt Count 259 (150-450) 10^3/uL MPV 7.3 L (7.4-10.4) fL Neut % (Auto) 39.5 % Lymph % (Auto) 44.3 % [place] % (Auto) 11.3 % Eos % (Auto) 3.8 % Baso % (Auto) 1.1 % Absolute Neuts (auto) 1.8 (1.5-7.7) 10^3/ul Absolute Lymphs (auto) 2.1 (1.0-4.8) 10^3/ul Absolute Monos (auto) 0.5 (0-0.8) 10^3/ul Absolute Eos (auto) 0.2 (0-0.6) 10^3/ul Absolute Basos (auto) 0.1 (0-0.2) 10^3/ul Absolute Nucleated RBC 0.0 10^3/ul Nucleated RBC % 0.0 Result Diagrams: 07/31/19 17:20 07/31/19 17:20 Lab Statement: Any lab studies that have been ordered have been reviewed, and results considered in the medical decision making process. - EKG 1739 Cardiac Rate: NL - 71 bpm EKG Rhythm: Sinus Rhythm Summary of EKG Findings: NSR at 71 bpm. No STEMI. Re-Evaluation - Re-Evaluation First Eval Re-Evaluation Time: 19:10 Comment: We discussed plan for discharge after consulting [place] neuro [employer]AST[employer]ING PROGRAM COORDINATOR. Course/Dx - Course Course Of Treatment: Pt is a 38 y/o F with cc of recurrent seizures associated with auras and blurred vision aggravated by inability to obtain Aptiom rx with compliance of Depakote. Upon physical exam, the patient exhibits no acute abnormalities, and the claim of paralysis on the left side is not supported by the exam. Blood work reveals MPV 7.3, BUN 4, creatinine 0.50, glucose 102, AST 12, globulin 1.9, but is otherwise normal. UA obtained and is negative. Toxicology report reveals carbamazepine <2.0 and nml valproic acid. EKG at 1739 reveals NSR at 71 bpm. Italo De La Cruz NP, the pts neurologist and I discussed the case, and he recommends increasing the pts Depakote dosage by 250mg at night, and she can also use Klonopin at night until she is back on Aptiom. She is recommended to call neurology tomorrow to continue use of Aptiom. She understands and agrees with this plan. - Diagnoses Provider Diagnoses: Seizure disorder, Aura - Physician Notifications Discussed Care Of Patient With: [place] Park - neuro Time Discussed With Above Provider: 18:15 Instructed by Provider To: Other - Cisco recommends increasing Depakote dosage by 250mg at night and Klonopin at night. Discharge ED - Sign-Out/Discharge Documenting (check all that apply): Patient Departure - Patient will be discharged home. Patient Received Moderate/Deep Sedation with Procedure: No - Discharge Plan Condition: Stable Disposition: HOME Prescriptions: clonazePAM TAB(*) [KlonoPIN TAB(*)] 1 mg PO BEDTIME PRN #5 tab MDD 5 PRN Reason: Anxiety Patient Education Materials: Recurrent Seizures in Adults (ED) Referrals: Cisco Park [Nurse Practitioner] - 1 Day Madhavi Mayorga MD [Primary Care Provider] - 3 Days Additional Instructions: Please take medications as prescribed. Follow up with your neurologist tomorrow since you have been unable to get your medications. Return to the emergency department for any new or worsening symptoms. - Billing Disposition and Condition Condition: STABLE Disposition: Home - Attestation Statements Document Initiated by Elle: Yes Documenting Scribe: Milla Lion Provider For Whom Elle is Documenting (Include Credential): Dr. Dylon Dean MD Scribe Attestation: Milla Bolton scribed for Dr. Dylon Dean MD on 08/14/19 at 1124. Scribe Documentation Reviewed: Yes Provider Attestation: The documentation as recorded by the Milla weller accurately reflects the service I personally performed and the decisions made by me, Dr. Dylon Dean MD Status of Scribe Document: Viewed
[2019-07-31 17:46] LABS: ALT 7 U/L (7-52); AST 12 U/L (13-39); Albumin 4.6 g/dL (3.2-5.2); Albumin/Globulin Ratio 2.4 (1-3); Alkaline Phosphatase 50 U/L (34-104); Anion Gap 8 mmol/L (2-11); Blood Urea Nitrogen 4 mg/dL (6-24); CO2 Carbon Dioxide 25 mmol/L (22-32); Calcium 9.6 mg/dL (8.6-10.3); Chloride 104 mmol/L (101-111); EGFR Non-African American 138.8 (>60); Globulin 1.9 g/dL (2-4); Glucose 102 mg/dL (70-100); Magnesium 2.2 mg/dL (1.9-2.7); Potassium 3.8 mmol/L (3.5-5.0); Sodium 137 mmol/L (135-145); Total Protein 6.5 g/dL (6.4-8.9)
[2019-07-31 18:06] LABS: Carbamazepine < 2.0 mcg/mL (4.0-12.0)
[2019-07-31 18:42] LABS: Urine Appearance Cloudy; Urine Bilirubin Negative (Negative); Urine Blood Negative (Negative); Urine Color Yellow; Urine Glucose Negative (Negative); Urine Ketones Negative (Negative); Urine Nitrite Negative (Negative); Urine Protein Negative (Negative); Urine Specific Gravity 1.005 (1.010-1.030); Urine Urobilinogen Negative (Negative)
[2019-07-31 19:33] VITALS: BP 101/72
== END 2019-07-31 19:32 | disposition home or self-care (01) ==
LOC: ED 17:01
DX: G40.909 Epilepsy, unspecified, not intractable, without status epilepticus (principal); E07.9 Disorder of thyroid, unspecified; D64.9 Anemia, unspecified; F32.9 Major depressive disorder, single episode, unspecified; Z87.891 Personal history of nicotine dependence; Z79.899 Other long term (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; Z88.1 Allergy status to other antibiotic agents; Z88.5 Allergy status to narcotic agent; Z88.2 Allergy status to sulfonamides
CPT/HCPCS: 36415; 80053; 80156; 80164; 81003; 83605; 83735; 85025; 85610; 93005; 99282; A9270-GY

== ENCOUNTER 2019-09-01 15:46 | Emergency (ER) | payer OTHER ==
[2019-09-01 16:10] VITALS: BP 113/72
--- NOTE | 2019-09-01 17:32 | UC ---
Throat Pain/Nasal Fred HPI - HPI Summary HPI Summary: 39-year-old woman comes in with a chief complaint of pain with swallowing and right-sided neck pain. Started to about a day or 2 ago. Initially hurt to swallow and the pain is more towards the right side of the neck. Pain is worse when she is laying on her right side and turning her head to the left. No fevers measured. - History of Current Complaint Chief Complaint: UCGeneralIllness Stated Complaint: SORE THROAT Time Seen by Provider: 09/01/19 16:05 Hx Last Menstrual Period: hysterectomy Pain Intensity: 10 - Allergies/Home Medications Allergies/Adverse Reactions: Allergies Allergy/AdvReac Type Severity Reaction Status Date / Time bee venom protein (honey bee) Allergy Hives Verified 09/01/19 16:11 cephalexin [From Keflex] Allergy Hives Verified 09/01/19 16:11 morphine Allergy Hives Verified 09/01/19 16:11 mushroom Allergy Hives Verified 09/01/19 16:11 Sulfa (Sulfonamide Allergy Rash Verified 09/01/19 16:11 Antibiotics) enviromental Allergy Eyes Uncoded 09/01/19 16:11 Itchy/Swollen/Red/Watery Home Medications: Home Medications Ibuprofen TAB* [Advil TAB*] 200 mg PO Q6H PRN 09/01/19 [History Confirmed ] PMH/Surg Hx/FS Hx/Imm Hx Previously Healthy: Yes - ANEMIA,AVM Neurological History: Seizures Other History Of: Negative For: Anticoagulant Therapy - Surgical History Surgical History: Yes Surgery Procedure, Year, and Place: AVM REPAIR (CLIPPED, THEN CLIP WAS REMOVED - SEE REPORTS). RT TEMPORAL LOBE IN 2008 [place] (removed scar tissue). 5 CSECTIONS. VNM simulater.07/2017 - Family History Known Family History: Positive: Cardiac Disease, Hypertension, Other - cancer; denies AVM in the family Negative: Diabetes - Social History Alcohol Use: None Substance Use Type: Marijuana Substance Use Comment - Amount & Last Used: occassional Smoking Status (MU): Former Smoker Have You Smoked in the Last Year: Yes - had of close relative on 2016 so smoked to cope Household Exposure Type: Cigarettes - Immunization History Most Recent Influenza Vaccination: 2016 Most Recent Tetanus Shot: 2015 Most Recent Pneumonia Vaccination: UNSURE Review of Systems All Other Systems Reviewed And Are Negative: Yes Constitutional: Positive: Negative Skin: Positive: Negative Eyes: Positive: Negative ENT: Positive: Sore Throat Respiratory: Positive: Negative Cardiovascular: Positive: Negative Gastrointestinal: Positive: Negative Motor: Positive: Negative Neurovascular: Positive: Negative Musculoskeletal: Positive: Other: - SEE HPI Neurological: Positive: Negative Psychological: Positive: Negative Is Patient Immunocompromised?: No Physical Exam Triage Information Reviewed: Yes Appearance: Well-Appearing, Well-Nourished, Pain Distress - MILD WITH NECK ROM Vital Signs: Initial Vital Signs Temp 98.3 F 09/01/19 16:00 Pulse 96 09/01/19 16:00 Resp 16 09/01/19 16:00 BP 113/72 09/01/19 16:00 Pulse Ox 97 09/01/19 16:00 Vital Signs Reviewed: Yes Eye Exam: Normal Eyes: Positive: Conjunctiva Clear ENT: Positive: Pharynx normal, Uvula midline. Negative: Muffled voice, Hoarse voice Neck: Positive: Other: - Patient is tender along the right sternocleidomastoid muscle to palpation. Respiratory: Positive: Lungs clear, Normal breath sounds, No respiratory distress Cardiovascular: Positive: RRR Musculoskeletal: Positive: Strength Intact Neurological: Positive: Alert Psychological: Positive: Age Appropriate Behavior Skin Exam: Normal Throat Pain/Nasal Course/Dx - Course Course Of Treatment: Patient's tender to palpation on the right side of her neck. Posterior pharynx appears normal voice is normal. Patient reports the pain first started with throat pain and swallowing. She prefers to be on antibiotic and will treat her with that but if she does not get better she needs to be reevaluated right away. She can also continue to take ibuprofen for the pain if this is a muscular problem that will help. At this time there is no evidence of any mass or difficulty swallowing or breathing. DISCUSSED VIRAL VERSES BACTERIAL INFECTIONS AND THE ROLE OF ANTIBIOTICS. THE PATIENT PREFERS TO BE ON ANTIBIOTICS AT THIS TIME. - Differential Dx/Diagnosis Provider Diagnosis: Neck pain, Pharyngitis Discharge ED - Sign-Out/Discharge Documenting (check all that apply): Patient Departure All imaging exams completed and their final reports reviewed: No Studies - Discharge Plan Condition: Stable Disposition: HOME Prescriptions: Amoxicillin PO (*) [Amoxicillin 875 MG (*)] 875 mg PO BID #20 tab Patient Education Materials: Pharyngitis (ED), Neck Pain (ED) Referrals: Madhavi Mayorga MD [Primary Care Provider] - Additional Instructions: FOLLOW UP WITH YOUR DOCTOR IF NOT COMPLETELY IMPROVED. GO TO THE EMERGENCY DEPARTMENT IF YOUR CONDITION WORSENS; PAIN, DIFFICULTY SWALLOWING OR BREATHING, YOU FEEL ILL OR ANY QUESTIONS OR CONCERNS. - Billing Disposition and Condition Condition: STABLE Disposition: Home
== END 2019-09-01 17:05 | disposition home or self-care (01) ==
LOC: UCEAST 15:46
DX: J02.9 Acute pharyngitis, unspecified (principal); M54.2 Cervicalgia; Z91.030 Bee allergy status; Z88.1 Allergy status to other antibiotic agents; Z88.5 Allergy status to narcotic agent; Z88.2 Allergy status to sulfonamides; Z91.09 Other allergy status, other than to drugs and biological substances; Z91.018 Allergy to other foods; Z87.891 Personal history of nicotine dependence
CPT/HCPCS: 99212; G0463

== ENCOUNTER 2019-09-11 12:46 | Emergency (ER) | payer OTHER ==
[2019-09-11 13:56] LABS: ABS Eosinophils 0.2 10^3/ul (0-0.6); ABS Lymphocytes 1.7 10^3/ul (1.0-4.8); ABS Monocytes 0.5 10^3/ul (0-0.8); ABS Neutrophils 1.4 10^3/ul (1.5-7.7); Eosinophil % 5.3 %; Hematocrit 38 % (35-47); Hemoglobin 13.3 g/dL (12.0-16.0); Mean Corpuscular HGB Conc 35 g/dL (31-36); Mean Corpuscular Hemoglobin 29 pg (27-31); Mean Corpuscular Volume 85 fL (80-97); Mean Platelet Volume 7.2 fL (7.4-10.4); Nucleated Red Blood Cells % 0.1; Platelet Count 305 10^3/uL (150-450); Red Blood Count 4.52 10^6 /uL (3.70-4.87); Red Cell Distribution Width 14 % (10-15); White Blood Count 3.8 10^3/uL (3.5-10.8)
--- NOTE | 2019-09-11 14:02 | ED ---
Neurological HPI - HPI Summary HPI Summary: Pt is a 39 y/o F presenting to the ED for a chief complaint of seizure. Pt states she had a seizure on the night of 09/10/19 and the morning of 09/11/19. Pt states that she woke up after the first seizure on the floor after previously being on the couch. Pt reports that she had a chewing symptom with aura which typically occurs when she has seizures. Pt also reports weakness in the left UE and left LE. Pt states she continues to have peripheral vision loss on the left side from a previous seizure. Pt also reports a copper taste in her mouth and nausea. Pt previously saw Dr. Encinas for a sore throat and right- sided neck pain that has improved. Pt denies any fever, chills, erythema of eyes , ear pain, CP, SOB, cough, abdominal pain, vomiting, dysuria, hematuria, myalgia, edema, rash, or dizziness. Pt is currently taking amoxicillin for a neck infection. Pt recently stopped taking Depakote for a PMHx of seizure due to a drug interaction with another medication. Pt sees Dr. Coles and will speak to them regarding RNS, AVM removal, and a possible brain surgery in one month. Pt was previously at [facility] [place] 6 weeks ago for similar symptoms. Pt has a PSHx of AVM repair and a PMHx of anxiety and depression. Pt sees a MH specialist which she states has improved her anxiety and depression. - History of Current Complaint Chief Complaint: EDSeizure Stated Complaint: SEIZURES PER EMS Time Seen by Provider: 09/11/19 12:50 Hx Obtained From: Patient Hx Last Menstrual Period: hysterectomy Onset/Duration: Sudden Onset, Started hours ago, Resolved Timing: Sudden Onset Onset Severity: Moderate Current Severity: Moderate Seizure Severity: Moderate Number of Seizures: 2 Pain Intensity: 10 Pain Scale Used: 0-10 Numeric Character: Motor Weakness - Left UE and left LE, Visual Changes - Peripheral vision loss on the left eye from previous seizure Seizure Character: Partial (Specify) - Left side Aggravating: Nothing Alleviating: Nothing Associated Signs and Symptoms: Positive: Visual Changes - Left peripheral vision loss from previous seizure, Weakness - Left UE and left LE, Seizure - 2 seizures with "chewing" and aura, Nausea/Vomiting - Positive nausea; negative vomiting, Neck Pain/Stiffness - Right side from previous illness, Depression - PMHx, Anxiety - PMHx. Negative: Dizziness, Pain - Negative myalgia, Fever, Chest Pain, Shortness of Breath TPA Considered: No - Additional Pertinent History Primary Care Physician: [id number] - Allergy/Home Medications Allergies/Adverse Reactions: Allergies Allergy/AdvReac Type Severity Reaction Status Date / Time bee venom protein (honey bee) Allergy Hives Verified 09/01/19 16:11 cephalexin [From Keflex] Allergy Hives Verified 09/01/19 16:11 morphine Allergy Hives Verified 09/01/19 16:11 mushroom Allergy Hives Verified 09/01/19 16:11 Sulfa (Sulfonamide Allergy Rash Verified 09/01/19 16:11 Antibiotics) enviromental Allergy Eyes Uncoded 09/01/19 16:11 Itchy/Swollen/Red/Watery Home Medications: Home Medications Ascorbic Acid TAB* [Vitamin C TAB*] 500 mg PO DAILY 09/11/19 [History Confirmed 09/11/19] Cyanocobalamin (Vitamin B-12) [Vitamin B-12] 1,000 mcg SL DAILY 09/11/19 [ History Confirmed 09/11/19] Lactose-Reduced Food [Boost High Protein] 237 ml PO TID 09/11/19 [History Confirmed 09/11/19] Meclizine TAB* [Antivert 12.5 TAB*] 25 mg PO BID 09/11/19 [History Confirmed ] Ondansetron TAB* [Zofran 4 MG Tab*] 8 mg PO Q8HR PRN 09/11/19 [History Confirmed 09/11/19] Pyridoxine TAB* [Vitamin B6 TAB*] 50 mg PO DAILY 09/11/19 [History Confirmed ] diPHENhydraMINE PO* [Benadryl PO 25 MG TAB*] 50 mg PO TID PRN 09/11/19 [History Confirmed 09/11/19] metroNIDAZOLE * [Flagyl] 500 mg PO Q8H 09/11/19 [History Confirmed 09/11/19] PMH/Surg Hx/FS Hx/Imm Hx Previously Healthy: Yes Endocrine/Hematology History: Reports: Hx Thyroid Disease, Hx Anemia - IV iron tx Denies: Hx Anticoagulant Therapy, Hx Diabetes Cardiovascular History: Denies: Hx Congestive Heart Failure, Hx Hypertension, Hx Pacemaker/ICD Comment Only: Other Cardiovascular Problems/Disorders - Arteriovenous malformation - Sx repair in 2008. Right atrial enlargement. 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 RT TEMPORAL LOBE IN 2008 [place] (removed scar tissue). 5 CSECTIONS. VNM simulater.07/2017 Hx Anesthesia Reactions: No - Immunization History Date of Tetanus Vaccine: unk Date of Influenza Vaccine: fall 2017 Infectious Disease History: No Infectious Disease History: Denies: Hx Hepatitis, Hx Human Immunodeficiency Virus (HIV), Traveled Outside the [place] in Last 30 Days - Family History Known Family History: Positive: Cardiac Disease, Hypertension, Other - cancer; denies AVM in the family Negative: Diabetes - Social History Lives: With Family Alcohol Use: None Hx Substance Use: Yes Substance Use Type: Reports: Marijuana Substance Use Comment - Amount & Last Used: occassional Hx Tobacco Use: Yes Smoking Status (MU): Former Smoker Have You Smoked in the Last Year: Yes - had of close relative on 2016 so smoked to cope Review of Systems Negative: Fever, Chills Positive: Other - Positive left peripheral vision loss. Negative: Erythema Positive: Sore Throat - Improving, Other - Positive copper taste in mouth. Negative: Ear Ache Negative: Chest Pain Negative: Shortness Of Breath, Cough Positive: Nausea. Negative: Abdominal Pain, Vomiting Negative: dysuria, hematuria Positive: Other - Right-sided neck pain that is improving. Negative: Myalgia, Edema Negative: Rash Neurological: Other - Positive seizure with "chewing" and aura; negative dizziness Positive: Weakness - Left UE and left LE All Other Systems Reviewed And Are Negative: Yes Physical Exam - Summary Physical Exam Summary: Constitutional: Well-developed, Well-nourished, Alert. (-) Distressed. Edentulous. Skin: Warm, Dry HENT: Normocephalic; Atraumatic Eyes: Conjunctiva normal Neck: Musculoskeletal ROM normal neck. (-) JVD, (-) Stridor, (-) Tracheal deviation Cardio: Rhythm regular, rate normal, Heart sounds normal; Intact distal pulses; The pedal pulses are 2+ and symmetric. Radial pulses are 2+ and symmetric. (-) Murmur Pulmonary/Chest wall: Effort normal. (-) Respiratory distress, (-) Wheezes, (-) Rales Abd: Soft, (-) tenderness, (-) Distension, (-) Guarding, (-) Rebound Musculoskeletal: (-) Edema. No cervical lymphadenopathy, not moving her left side or squeezing. Lymph: (-) Cervical adenopathy Neuro: Alert, Oriented x3 Psych: Mood and affect Normal Triage Information Reviewed: Yes Vital Signs On Initial Exam: Initial Vitals Temp Pulse Resp BP Pulse Ox 98.1 F 96 18 118/84 97 09/11/19 12:48 09/11/19 12:48 09/11/19 12:48 09/11/19 12:48 09/11/19 12:48 Vital Signs Reviewed: Yes Procedures - Sedation Patient Received Moderate/Deep Sedation with Procedure: No Diagnostics - Vital Signs Vital Signs Temp Pulse Resp BP Pulse Ox 09/11/19 13:47 86 18 113/75 96 09/11/19 13:18 91 13 111/79 97 09/11/19 13:00 93 20 96 09/11/19 12:54 92 14 97 09/11/19 12:48 98.1 F 96 18 118/84 97 - Laboratory Lab Results: Lab Results 09/11/19 Range/Units 13:43 WBC 3.8 (3.5-10.8) 10^3/uL RBC 4.52 (3.70-4.87) 10^6 /uL Hgb 13.3 (12.0-16.0) g/dL Hct 38 (35-47) % MCV 85 (80-97) fL MCH 29 (27-31) pg MCHC 35 (31-36) g/dL RDW 14 (10-15) % Plt Count 305 (150-450) 10^3/uL MPV 7.2 L (7.4-10.4) fL Neut % (Auto) 36.0 % Lymph % (Auto) 45.0 % [place] % (Auto) 13.0 % Eos % (Auto) 5.3 % Baso % (Auto) 0.7 % Absolute Neuts (auto) 1.4 L (1.5-7.7) 10^3/ul Absolute Lymphs (auto) 1.7 (1.0-4.8) 10^3/ul Absolute Monos (auto) 0.5 (0-0.8) 10^3/ul Absolute Eos (auto) 0.2 (0-0.6) 10^3/ul Absolute Basos (auto) 0.0 (0-0.2) 10^3/ul Absolute Nucleated RBC 0.0 10^3/ul Nucleated RBC % 0.1 Result Diagrams: 09/11/19 13:43 09/11/19 13:43 Lab Statement: Any lab studies that have been ordered have been reviewed, and results considered in the medical decision making process. - EKG 13:32 Cardiac Rate: NL - 76 BPM EKG Rhythm: Sinus Rhythm ST Segment: Normal Ectopy: None Summary of EKG Findings: EKG at 13:32 shows 76 BPM with normal sinus rhythm, no STEMI. Reviewed and interpreted by ED physician. Re-Evaluation - Re-Evaluation First Eval Re-Evaluation Time: 16:13 Change: Improved Comment: At 16:13, pt is able to move the left side and aura has resolved. Course/Dx - Course Course Of Treatment: Pt is a 39 y/o F presenting to the ED for a chief complaint of seizure. Pt states she had a seizure on the night of 09/10/19 and the morning of 09/11/19. Pt states that she woke up after the first seizure on the floor after previously being on the couch. Pt reports that she had a chewing symptom with aura which typically occurs when she has seizures. Pt also reports weakness in the left UE and left LE. Pt states she continues to have peripheral vision loss on the left side from a previous seizure. Pt also reports a copper taste in her mouth and nausea. Pt previously saw Dr. Encinas for a sore throat and right-sided neck pain that has improved. Pt denies any fever, chills, erythema of eyes, ear pain, CP, SOB, cough, abdominal pain, vomiting, dysuria, hematuria, myalgia, edema, rash, or dizziness. Pt is currently taking amoxicillin for a neck infection. Pt recently stopped taking Depakote for a PMHx of seizure due to a drug interaction with another medication. Pt sees Dr. Das and will speak to them regarding RNS, AVM removal, and a possible brain surgery in one month. Pt was previously at [facility] [place] 6 weeks ago for similar symptoms. Pt has a PSHx of AVM repair and a PMHx of anxiety and depression. Pt sees a MH specialist which she states has improved her anxiety and depression. On exam, no cervical lymphadenopathy, edentulous, not moving her left side or squeezing. In the ED course, pt was given diazepam 5 mg IV. EKG at 13:32 shows 76 BPM with normal sinus rhythm, no STEMI. Laboratory abnormal findings: MPV 7.2, absolute neuts 1.4, sodium 131, chloride 98, BUN 5, creatinine 0.46, ALT 6, and total protein 6.1. At 16:13, pt is able to move the left side and aura has resolved. Pt will be discharged with a diagnosis of seizure with aura. Follow up with Dr. Coles in one week. - Diagnoses Provider Diagnoses: Seizure disorder Discharge ED - Sign-Out/Discharge Documenting (check all that apply): Patient Departure - Discharge - Discharge Plan Condition: Stable Disposition: HOME Patient Education Materials: Recurrent Seizures in Adults (ED) Referrals: Madhavi Mayorga MD [Primary Care Provider] - Leatha Coles MD [Medical Doctor] - Additional Instructions: Follow up with Dr. Coles in one week. RETURN TO THE EMERGENCY DEPARTMENT WITH CHANGING OR WORSENING SYMPTOMS. - Attestation Statements Document Initiated by Scribe: Yes Documenting Scribe: Lucy Betts Provider For Whom Scribe is Documenting (Include Credential): Dylon Dean MD Scribe Attestation: Lucy Bolton, scribed for Dylon Dean MD on 09/11/19 at 1621. Status of Scribe Document: Ready
[2019-09-11 14:10] LABS: Albumin/Globulin Ratio 1.9 (1-3); BUN/Creatinine Ratio 10.9 (8-20); Calcium 9.4 mg/dL (8.6-10.3); Globulin 2.1 g/dL (2-4); Magnesium 2.1 mg/dL (1.9-2.7); Potassium 3.9 mmol/L (3.5-5.0); Total Bilirubin 0.3 mg/dL (0.2-1.0); Total Protein 6.1 g/dL (6.4-8.9)
[2019-09-11] MEDS ORDERED: diazePAM INJ* 5 MG/ML 2ML SYRINGE IV ONE (14:13)
[2019-09-11 14:22] LABS: INR 1.02 (0.82-1.09)
[2019-09-11 16:32] VITALS: BP 95/69
== END 2019-09-11 16:43 | disposition home or self-care (01) ==
LOC: ED 12:46
DX: G40.009 Localization-related (focal) (partial) idiopathic epilepsy and epileptic syndromes with seizures of localized onset, not intractable, without status epilepticus (principal); H54.62 Unqualified visual loss, left eye, normal vision right eye; D64.9 Anemia, unspecified; Z79.899 Other long term (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; Z88.1 Allergy status to other antibiotic agents; Z91.030 Bee allergy status; Z88.5 Allergy status to narcotic agent; Z88.2 Allergy status to sulfonamides; Z91.018 Allergy to other foods; Z87.891 Personal history of nicotine dependence
CPT/HCPCS: 36415; 80053; 83605; 83735; 85025; 85610; 93005; 96374; 99283; J3360

== ENCOUNTER 2019-09-21 18:50 | Emergency (ER) | payer OTHER ==
[2019-09-21] MEDS ORDERED: LORazepam INJ* 2 MG/ML 1 ML VIAL IV PUSH ONE (18:55)
--- NOTE | 2019-09-21 19:30 | ED ---
Neurological HPI - HPI Summary HPI Summary: Pt is a 39 y/o F presenting to the ED brought in by EMS for seizures. Pt states she had a strong aura over the past couple of days, and tonight the symptoms of her aura worsened, including a metal taste in her mouth, copper smell, and feeling like there is fire in the L side of her body, so she called EMS. Upon their arrival, she had her tonic clonic seizure. She stopped taking her Depakote a while ago d/t it not doing anything for her. She still takes her Aptiom and Briviact. Medications reviewed. Allergies noted. - History of Current Complaint Chief Complaint: EDSeizure Stated Complaint: SEIZURES PER EMS Time Seen by Provider: 09/21/19 19:06 Hx Obtained From: Patient Hx Last Menstrual Period: hysterectomy Onset/Duration: Sudden Onset, Started hours ago, Still Present Timing: Constant Onset Severity: Moderate Current Severity: None Seizure Severity: Moderate Neurological Deficit Location: LUE, LLE Pain Intensity: 0 Pain Scale Used: 0-10 Numeric Episode Lasting: Seconds/Minutes Seizure Character: Total-Clonic Aggravating: Unknown Alleviating: Spontanious Resolution Associated Signs and Symptoms: Positive: Seizure, Change in Medication - Additional Pertinent History Primary Care Physician: [id number] - Allergy/Home Medications Allergies/Adverse Reactions: Allergies Allergy/AdvReac Type Severity Reaction Status Date / Time bee venom protein (honey bee) Allergy Hives Verified 09/01/19 16:11 cephalexin [From Keflex] Allergy Hives Verified 09/01/19 16:11 morphine Allergy Hives Verified 09/01/19 16:11 mushroom Allergy Hives Verified 09/01/19 16:11 Sulfa (Sulfonamide Allergy Rash Verified 09/01/19 16:11 Antibiotics) enviromental Allergy Eyes Uncoded 09/01/19 16:11 Itchy/Swollen/Red/Watery PMH/Surg Hx/FS Hx/Imm Hx Previously Healthy: Yes Endocrine/Hematology History: Reports: Hx Thyroid Disease, Hx Anemia - IV iron tx Denies: Hx Anticoagulant Therapy, Hx Diabetes Cardiovascular History: Denies: Hx Congestive Heart Failure, Hx Hypertension, Hx Pacemaker/ICD Comment Only: Other Cardiovascular Problems/Disorders - Arteriovenous malformation - Sx repair in 2008. Right atrial enlargement. 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 RT TEMPORAL LOBE IN 2008 [place] (removed scar tissue). 5 CSECTIONS. VNM simulater.07/2017 Hx Anesthesia Reactions: No - Immunization History Date of Tetanus Vaccine: unk Date of Influenza Vaccine: fall 2017 Infectious Disease History: No Infectious Disease History: Denies: Hx Hepatitis, Hx Human Immunodeficiency Virus (HIV), Traveled Outside the [place] in Last 30 Days - Family History Known Family History: Positive: Cardiac Disease, Hypertension, Other - cancer; denies AVM in the family Negative: Diabetes - Social History Alcohol Use: None Hx Substance Use: Yes Substance Use Type: Reports: Marijuana Substance Use Comment - Amount & Last Used: occassional Hx Tobacco Use: Yes Smoking Status (MU): Former Smoker Have You Smoked in the Last Year: Yes - had of close relative on 2016 so smoked to cope Review of Systems Positive: Other - copper taste in her mouth Neurological: Other - seizure Positive: Weakness - LUE and LLE All Other Systems Reviewed And Are Negative: Yes Physical Exam - Summary Physical Exam Summary: Constitutional: Well-developed, Well-nourished, Alert. (-) Distressed Skin: Warm, Dry HENT: Normocephalic; Atraumatic Eyes: Conjunctiva normal Neck: Musculoskeletal ROM normal neck. (-) JVD, (-) Stridor, (-) Tracheal deviation Cardio: Rhythm regular, rate normal, Heart sounds normal; Intact distal pulses. Radial pulses are 2+ and symmetric. (-) Murmur Pulmonary/Chest wall: Effort normal. (-) Respiratory distress, (-) Wheezes, (-) Rales Abd: Soft. (-) Tenderness, (-) Distension, (-) Guarding, (-) Rebound Musculoskeletal: (-) Edema Lymph: (-) Cervical adenopathy Neuro: Alert, Oriented x3, Strength normal, Cranial nerves II-XII are grossly intact. LUE weakness. (-) Dysmetria, (-) Nystagmus, (-) Ataxia by finger to nose testing, (-) Sensory deficit. Psych: Mood and affect Normal Triage Information Reviewed: Yes Vital Signs On Initial Exam: Initial Vitals Pulse Resp BP Pulse Ox 91 16 142/95 99 09/21/19 18:55 09/21/19 18:55 09/21/19 18:55 09/21/19 18:55 Vital Signs Reviewed: Yes Procedures - Sedation Patient Received Moderate/Deep Sedation with Procedure: No Diagnostics - Vital Signs Vital Signs Temp Pulse Resp BP Pulse Ox 09/21/19 19:00 96 24 97 09/21/19 18:56 98.5 F 100 16 111/79 99 09/21/19 18:55 91 21 142/95 99 - Laboratory Result Diagrams: 09/21/19 20:05 09/21/19 20:05 Lab Statement: Any lab studies that have been ordered have been reviewed, and results considered in the medical decision making process. Course/Dx - Course Course Of Treatment: Patient is here after her typical seizure. Patient has a complex seizure history including multiple brain surgeries and a VNS stimulator. Patient is given 1 L of Ativan IV upon arrival she felt an aura. Patient had blood performed which is grossly unremarkable. Patient had a normal neurologic exam for her. Patient was very nervous to go home as she has to care [facility] her [facility] to help her. Patient was given by mouth Ativan which has helped in the past. Patient was encouraged call her neurologist morning to readjust her medications. - Diagnoses Provider Diagnoses: Seizure Discharge ED - Sign-Out/Discharge Documenting (check all that apply): Patient Departure - Discharge Plan Condition: Stable Disposition: HOME Patient Education Materials: Generalized Tonic Clonic Seizures (ED) Referrals: Madhavi Mayorga MD [Primary Care Provider] - Additional Instructions: Please call Dr. Coles in the morning to discuss your worsening auras. Come back to the emergency department with any worsening seizures or other concerning symptoms. - Billing Disposition and Condition Condition: STABLE Disposition: Home - Attestation Statements Document Initiated by Scribe: Yes Documenting Scribe: Elizabeth Blount Provider For Whom Elle is Documenting (Include Credential): Reji Espinoza MD. Scribe Attestation: Elizabeth Bolton, scribed for Reji Espinoza MD. on 09/21/19 at 2354. Scribe Documentation Reviewed: Yes Provider Attestation: The documentation as recorded by the khurramibElizabeth scott accurately reflects the service I personally performed and the decisions made by Reji coker MD. Status of Scribe Document: Viewed
[2019-09-21 20:12] LABS: ABS Eosinophils 0.2 10^3/ul (0-0.6); ABS Lymphocytes 1.9 10^3/ul (1.0-4.8); ABS Monocytes 0.5 10^3/ul (0-0.8); ABS Neutrophils 3.4 10^3/ul (1.5-7.7); Eosinophil % 2.9 %; Hematocrit 35 % (35-47); Hemoglobin 11.9 g/dL (12.0-16.0); Lymphocyte % 31.5 %; Mean Corpuscular HGB Conc 34 g/dL (31-36); Mean Corpuscular Hemoglobin 30 pg (27-31); Mean Corpuscular Volume 86 fL (80-97); Mean Platelet Volume 6.8 fL (7.4-10.4); Platelet Count 254 10^3/uL (150-450); Red Blood Count 4.05 10^6 /uL (3.70-4.87); Red Cell Distribution Width 14 % (10-15)
[2019-09-21] MEDS ORDERED: LORazepam TAB(*) 1 MG PO ONE (20:23)
[2019-09-21] MEDS ORDERED: Acetaminophen TAB* 325 MG PO ONE (20:24)
[2019-09-21 20:29] LABS: Albumin/Globulin Ratio 2.5 (1-3); BUN/Creatinine Ratio 11.8 (8-20); Calcium 8.7 mg/dL (8.6-10.3); EGFR African American 163.3 (>60); Globulin 1.6 g/dL (2-4); Potassium 3.6 mmol/L (3.5-5.0); Total Bilirubin 0.2 mg/dL (0.2-1.0); Total Protein 5.6 g/dL (6.4-8.9)
[2019-09-21 20:57] VITALS: BP 126/85
== END 2019-09-21 20:56 | disposition home or self-care (01) ==
LOC: ED 18:50
DX: R56.9 Unspecified convulsions (principal); E07.9 Disorder of thyroid, unspecified; D64.9 Anemia, unspecified; F32.9 Major depressive disorder, single episode, unspecified; Z87.891 Personal history of nicotine dependence; Z79.899 Other long term (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; Z88.1 Allergy status to other antibiotic agents; Z88.5 Allergy status to narcotic agent; Z88.2 Allergy status to sulfonamides
CPT/HCPCS: 36415; 80053; 85025; 96374; 99283; A9270-GY

== ENCOUNTER 2019-09-27 20:24 | Emergency (ER) | payer OTHER ==
[2019-09-27] MEDS ORDERED: NS 0.9% 1000 ML** 1,000 ML IV ONE ×2 (20:44→23:41)
--- NOTE | 2019-09-27 21:04 | ED ---
Neurological HPI - HPI Summary HPI Summary: This patient is a 39 year old F with a history of seizures BIBA vis EMS to ED with a chief complaint of seizure since [employer]. Patient reports getting an aura before having the seizure, as she usually does. When patient felt the aura, she called EMS. The aura lasted 10 minutes. EMS arrived and witnessed the patient having a 2.5 minute seizure. EMS gave 5mg IM versed. The patient was briefly post-ictal but is alert and oriented upon arrival to the ED. Patient has not felt sick recently. Patient used to be on Depakote but went off the Depakote a few weeks ago since it changed her appetite. She was taken off Depakote by her neurologist in [place]. Patients last seizure was 09/21/19 and was seen here at [facility] after it. In the ED room today, patient reports generalized body myalgia. The patient rates the pain 9/10 in severity. Symptoms aggravated by nothing. Symptoms alleviated by EMS treatment. Patient denies fever. - History of Current Complaint Chief Complaint: EDSeizure Stated Complaint: SEIZURE PER EMS Time Seen by Provider: 09/27/19 20:44 Hx Obtained From: Patient, EMS Hx Last Menstrual Period: hysterectomy Onset/Duration: Gradual Onset - Aura for 10 minutes following by witnessed 2.5 minute seizure, Started minutes ago - [employer], Resolved Timing: Intermittent Episodes Lasting: - 10 minutes Onset Severity: Moderate Current Severity: None Number of Seizures: 1 Pain Intensity: 9 Pain Scale Used: 0-10 Numeric Associated Signs and Symptoms: Positive: Seizure, Change in Medication - Recently taken off Depakote. Negative: Fever Related Hx: Seizure - Additional Pertinent History Primary Care Physician: CORAL - Allergy/Home Medications Allergies/Adverse Reactions: Allergies Allergy/AdvReac Type Severity Reaction Status Date / Time bee venom protein (honey bee) Allergy Hives Verified 09/27/19 20:32 cephalexin [From Keflex] Allergy Hives Verified 09/27/19 20:32 morphine Allergy Hives Verified 09/27/19 20:32 mushroom Allergy Hives Verified 09/27/19 20:32 Sulfa (Sulfonamide Allergy Rash Verified 09/27/19 20:32 Antibiotics) enviromental Allergy Eyes Uncoded 09/27/19 20:32 Itchy/Swollen/Red/Watery PMH/Surg Hx/FS Hx/Imm Hx Previously Healthy: No Endocrine/Hematology History: Reports: Hx Thyroid Disease, Hx Anemia - IV iron tx Denies: Hx Anticoagulant Therapy, Hx Diabetes Cardiovascular History: Denies: Hx Congestive Heart Failure, Hx Hypertension, Hx Pacemaker/ICD Comment Only: Other Cardiovascular Problems/Disorders - Arteriovenous malformation - Sx repair in 2008. Right atrial enlargement. 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 RT TEMPORAL LOBE IN 2008 [place] (removed scar tissue). 5 CSECTIONS. VNM simulater.07/2017 Hx Anesthesia Reactions: No - Immunization History Date of Tetanus Vaccine: unk Date of Influenza Vaccine: fall 2018 Infectious Disease History: No Infectious Disease History: Denies: Hx Hepatitis, Hx Human Immunodeficiency Virus (HIV), Traveled Outside the US in Last 30 Days - Family History Known Family History: Positive: Cardiac Disease, Hypertension, Other - cancer; denies AVM in the family Negative: Diabetes - Social History Alcohol Use: None Hx Substance Use: Yes Substance Use Type: Reports: Marijuana Substance Use Comment - Amount & Last Used: occassional Hx Tobacco Use: Yes Smoking Status (MU): Former Smoker Review of Systems - ROS Summary Review of Systems Summary: Home Medications Medication Instructions Recorded Confirmed Type Potassium Chlor TAB* [Klor Con ER 10 meq PO DAILY 04/29/17 09/11/19 History TAB 10 MEQ*] Ferrous Sulfate TAB* 325 mg PO DAILY 03/28/18 09/11/19 History Levothyroxine TAB* [Synthroid TAB*] 75 mcg PO DAILY 03/28/18 09/11/19 History Magnesium Oxide TAB* [MagOx 400 400 mg PO DAILY 03/28/18 09/11/19 History TAB*] Cholecalciferol TAB* [Vitamin D 2,000 units PO DAILY 12/09/18 09/11/19 History TAB*] Brivaracetam [Briviact] 100 - 150 mg PO SEE INSTRUCTIONS 06/22/19 09/11/19 History Eslicarbazepine Acetate (NF) 800 mg PO BID 06/22/19 09/11/19 History [Aptiom] Sertraline* [Zoloft*] 100 mg PO DAILY 06/22/19 09/11/19 History Amoxicillin PO (*) [Amoxicillin 875 mg PO BID #20 tab 09/01/19 09/11/19 Rx 875 MG (*)] Ibuprofen TAB* [Advil TAB*] 600 mg PO Q6H PRN 09/01/19 09/11/19 History Ascorbic Acid TAB* [Vitamin C 500 mg PO DAILY 09/11/19 09/11/19 History TAB*] Cyanocobalamin (Vitamin B-12) 1,000 mcg SL DAILY 09/11/19 09/11/19 History [Vitamin B-12] Lactose-Reduced Food [Boost High 237 ml PO TID 09/11/19 09/11/19 History Protein] Meclizine TAB* [Antivert 12.5 TAB*] 25 mg PO BID 09/11/19 09/11/19 History Ondansetron TAB* [Zofran 4 MG Tab*] 8 mg PO Q8HR PRN 09/11/19 09/11/19 History Pyridoxine TAB* [Vitamin B6 TAB*] 50 mg PO DAILY 09/11/19 09/11/19 History diPHENhydraMINE PO* [Benadryl PO 50 mg PO TID PRN 09/11/19 09/11/19 History 25 MG TAB*] metroNIDAZOLE * [Flagyl] 500 mg PO Q8H 09/11/19 09/11/19 History Negative: Fever Positive: Myalgia All Other Systems Reviewed And Are Negative: Yes Physical Exam - Summary Physical Exam Summary: General: Cachectic female. No acute distress. HEENT: Normocephalic, Atraumatic, Edentulous Eyes: Conjuctiva normal, PERRL. Ears: TMs within normal limits. Nares: (-) discharge, (-) erythema. Oropharynx: Clear, mucous membranes moist, (-) exudates. Neck: Soft, FROM, (-) lymphadenopathy, (-) thyromegaly, (-) JVD. Cardiovascular: Normal sinus rhythm, (-) murmur. Lungs: Clear to auscultation bilaterally (-) wheezes, (-) rales, (-) rhonchi. Abdomen: Soft, non-tender, non-distended, (-) organomegaly, normal bowel sounds. Back: (-) CVA tenderness Extremities: No edema. Skin: Warm, dry, (-) rash. Neuro: Slurred speech, slow to respond, otherwise normal. Psychiatric: Mood normal, affect normal. Triage Information Reviewed: Yes Vital Signs On Initial Exam: Initial Vitals Temp Pulse Resp BP Pulse Ox 98.7 F 95 16 119/69 100 09/27/19 20:26 09/27/19 20:26 09/27/19 20:26 09/27/19 20:26 09/27/19 20:26 Vital Signs Reviewed: Yes Procedures - Sedation Patient Received Moderate/Deep Sedation with Procedure: No Diagnostics - Vital Signs Vital Signs Temp Pulse Resp BP Pulse Ox 09/27/19 20:26 98.7 F 95 16 119/69 100 - Laboratory Result Diagrams: 09/27/19 21:30 09/27/19 21:30 Lab Statement: Any lab studies that have been ordered have been reviewed, and results considered in the medical decision making process. - EKG 2109 Cardiac Rate: NL - 73 BPM EKG Rhythm: Sinus Rhythm ST Segment: Normal Ectopy: None Summary of EKG Findings: EKG at 2109 reveals normal sinus rhythm with rate of 73 BPM, no acute changes, no ischemic changes. This EKG was reviewed and interpreted by Dr. Jasso. Re-Evaluation - Re-Evaluation First Eval Re-Evaluation Time: 02:08 Comment: I have discussed results with the patient and patient's symptoms are resolved. Discussed symptoms that warrant immediate return to ED. Course/Dx - Course Course Of Treatment: 39-year-old female with known seizures. [place] an aura coming on today and called 911. Had apparent grand mal seizure in front of EMS. Upon arrival patient is awake and alert. Oriented 3. Patient continues on 2 seizure medications. Has stopped her third one many weeks ago. He follows up with specialist in [place]. During her stay in the emergency room patient stated she had not R as which were becoming stronger. Was given Benadryl with good relief. Workup essentially negative although nondiagnostic. Discharge to home. Follow up with PCP and neurologist. Follow-up sooner for any worsening symptoms. - Diagnoses Provider Diagnoses: Seizure Discharge ED - Sign-Out/Discharge Documenting (check all that apply): Patient Departure - Discharge - Discharge Plan Condition: Stable Disposition: HOME Patient Education Materials: Nonepileptic Seizures (ED) Referrals: Madhavi Mayorga MD [Primary Care Provider] - 3 Days Additional Instructions: Please follow up with your primary care physician within three days. Please return to ED for any new or worsening symptoms. - Billing Disposition and Condition Condition: STABLE Disposition: Home - Attestation Statements Document Initiated by Elle: Yes Documenting Scribe: Harris Mitchell Provider For Whom Elle is Documenting (Include Credential): Aria Jasso MD Scribe Attestation: IHarris, scribed for Aria Jasso MD on 09/28/19 at 0348. Scribe Documentation Reviewed: Yes Provider Attestation: The documentation as recorded by the Harris weller accurately reflects the service I personally performed and the decisions made by me, Aria Jasso MD Status of Scribe Document: Viewed
[2019-09-27 21:36] LABS: ABS Eosinophils 0.3 10^3/ul (0-0.6); ABS Lymphocytes 2.3 10^3/ul (1.0-4.8); ABS Monocytes 0.5 10^3/ul (0-0.8); ABS Neutrophils 1.9 10^3/ul (1.5-7.7); Eosinophil % 6.6 %; Hematocrit 35 % (35-47); Hemoglobin 11.8 g/dL (12.0-16.0); Lymphocyte % 44.8 %; Mean Corpuscular HGB Conc 34 g/dL (31-36); Mean Corpuscular Hemoglobin 29 pg (27-31); Mean Corpuscular Volume 87 fL (80-97); Mean Platelet Volume 6.8 fL (7.4-10.4); Nucleated Red Blood Cells % 0.1; Platelet Count 220 10^3/uL (150-450); Red Blood Count 4.02 10^6 /uL (3.70-4.87); Red Cell Distribution Width 14 % (10-15)
[2019-09-27 21:41] LABS: INR 0.91 (0.82-1.09)
[2019-09-27 21:53] LABS: ALT 10 U/L (7-52); AST 18 U/L (13-39); Albumin 3.9 g/dL (3.2-5.2); Albumin/Globulin Ratio 1.9 (1-3); Alkaline Phosphatase 46 U/L (34-104); Anion Gap 5 mmol/L (2-11); BUN/Creatinine Ratio 6.9 (8-20); Blood Urea Nitrogen 4 mg/dL (6-24); CO2 Carbon Dioxide 28 mmol/L (22-32); Chloride 103 mmol/L (101-111); EGFR African American 140.8 (>60); EGFR Non-African American 116.3 (>60); Globulin 2.1 g/dL (2-4); Glucose 78 mg/dL (70-100); Potassium 3.6 mmol/L (3.5-5.0); Sodium 136 mmol/L (135-145)
[2019-09-27 21:55] LABS: Troponin I 0.01 ng/mL (<0.04)
[2019-09-27 21:59] LABS: HCG Pregnancy < 0.60 mIU/mL
[2019-09-27 22:11] LABS: Alcohol < 10 mg/dL (<10)
[2019-09-27 22:28] LABS: TSH (Thyroid Stimulating Horm) 0.25 mcIU/mL (0.34-5.60)
[2019-09-28 00:22] LABS: Urine Appearance Turbid; Urine Bilirubin Negative (Negative); Urine Blood Negative (Negative); Urine Color Yellow; Urine Glucose Negative (Negative); Urine Ketones Negative (Negative); Urine Nitrite Negative (Negative); Urine Protein Negative (Negative); Urine Specific Gravity 1.012 (1.010-1.030); Urine Urobilinogen Negative (Negative)
[2019-09-28] MEDS ORDERED: diPHENhydraMINE IV* 50 MG/ML 1 ml VIAL (BENADRYL) IV ONE (01:20)
[2019-09-28 01:52] LABS: Urine Benzodiazepine Screen Presumptive Positive (None Detect); Urine Opiates Screen None Detected (None Detect)
[2019-09-28 03:03] VITALS: BP 0/0
== END 2019-09-28 03:01 | disposition home or self-care (01) ==
LOC: ED 20:24
DX: R56.9 Unspecified convulsions (principal); E03.9 Hypothyroidism, unspecified; D64.9 Anemia, unspecified; F32.9 Major depressive disorder, single episode, unspecified; Z87.891 Personal history of nicotine dependence; Z79.890 Hormone replacement therapy; Z79.899 Other long term (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; Z88.1 Allergy status to other antibiotic agents; Z88.5 Allergy status to narcotic agent; Z88.2 Allergy status to sulfonamides
CPT/HCPCS: 36415; 80053; 80307; 80320; 81003; 83605; 83735; 83880; 84443; 84484; 84702; 85025; 85610; 93005; 96361; 96374; 99283; G0480; J1200

== ENCOUNTER 2019-10-05 09:27 | Emergency (ER) | payer OTHER ==
[2019-10-05] MEDS ORDERED: Lorazepam PYXIS KEY PRN (09:33)
[2019-10-05] MEDS ORDERED: LORazepam INJ* 2 MG/ML 1 ML VIAL IV PUSH ONE (09:33)
[2019-10-05 10:11] LABS: ABS Eosinophils 0.3 10^3/ul (0-0.6); ABS Lymphocytes 1.9 10^3/ul (1.0-4.8); ABS Monocytes 0.4 10^3/ul (0-0.8); ABS Neutrophils 1.1 10^3/ul (1.5-7.7); Eosinophil % 6.8 %; Hematocrit 39 % (35-47); Lymphocyte % 51.5 %; Mean Corpuscular HGB Conc 34 g/dL (31-36); Mean Corpuscular Hemoglobin 29 pg (27-31); Mean Corpuscular Volume 85 fL (80-97); Platelet Count 232 10^3/uL (150-450); Red Blood Count 4.52 10^6 /uL (3.70-4.87); Red Cell Distribution Width 14 % (10-15); White Blood Count 3.7 10^3/uL (3.5-10.8)
[2019-10-05 10:21] LABS: Albumin 4.2 g/dL (3.2-5.2); Albumin/Globulin Ratio 1.8 (1-3); BUN/Creatinine Ratio 13.3 (8-20); Calcium 9.2 mg/dL (8.6-10.3); EGFR African American 135.4 (>60); EGFR Non-African American 111.9 (>60); Globulin 2.3 g/dL (2-4); Potassium 3.8 mmol/L (3.5-5.0); Total Bilirubin 0.3 mg/dL (0.2-1.0); Total Protein 6.5 g/dL (6.4-8.9)
--- NOTE | 2019-10-05 11:18 | ED ---
Seizure - HPI Summary HPI Summary: Patient is a 39-year-old female with a history of seizures presenting to the ED with 2 seizures this morning. Patient states she has been using her - History Of Current Complaint Chief Complaint: EDSeizure Time Seen by Provider: 10/05/19 09:28 Hx Obtained From: Patient Onset/Duration: Sudden Onset Aggravating Factor(s): Nothing Alleviating Factor(s): Nothing Associated Signs And Symptoms: Negative - Risk Factors SAH Risk Factors: Negative Meningitis Risk Factors: Negative SDH Risk Factor: Negative - Allergies/Home Medications Allergies/Adverse Reactions: Allergies Allergy/AdvReac Type Severity Reaction Status Date / Time bee venom protein (honey bee) Allergy Hives Verified 09/27/19 20:32 cephalexin [From Keflex] Allergy Hives Verified 09/27/19 20:32 morphine Allergy Hives Verified 09/27/19 20:32 mushroom Allergy Hives Verified 09/27/19 20:32 Sulfa (Sulfonamide Allergy Rash Verified 09/27/19 20:32 Antibiotics) enviromental Allergy Eyes Uncoded 09/27/19 20:32 Itchy/Swollen/Red/Watery PMH/Surg Hx/FS Hx/Imm Hx Previously Healthy: Yes Endocrine/Hematology History: Reports: Hx Thyroid Disease, Hx Anemia - IV iron tx Denies: Hx Anticoagulant Therapy, Hx Diabetes Cardiovascular History: Denies: Hx Congestive Heart Failure, Hx Hypertension, Hx Pacemaker/ICD Comment Only: Other Cardiovascular Problems/Disorders - Arteriovenous malformation - Sx repair in 2008. Right atrial enlargement. 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 RT TEMPORAL LOBE IN 2009 [place] (removed scar tissue). 5 CSECTIONS. VNM simulater.07/2017 Hx Anesthesia Reactions: No - Immunization History Date of Tetanus Vaccine: unk Date of Influenza Vaccine: fall 2018 Hx Pertussis Vaccination: No Immunizations Up to Date: Yes Infectious Disease History: No Infectious Disease History: Denies: Hx Hepatitis, Hx Human Immunodeficiency Virus (HIV), Traveled Outside the US in Last 30 Days - Family History Known Family History: Positive: Cardiac Disease, Hypertension, Other - cancer; denies AVM in the family Negative: Diabetes - Social History Occupation: Unemployed Lives: Alone Alcohol Use: None Hx Substance Use: Yes Substance Use Type: Reports: Marijuana Substance Use Comment - Amount & Last Used: occassional Hx Tobacco Use: Yes Smoking Status (MU): Former Smoker Have You Smoked in the Last Year: Yes - had of close relative on 2016 so smoked to cope Review of Systems Negative: Fever, Chills, Fatigue, Skin Diaphoresis Negative: Palpitations, Chest Pain Negative: Shortness Of Breath, Cough Genitourinary: Negative Positive: no symptoms reported, see HPI Negative: Arthralgia, Myalgia Neurological: Negative Negative: Headache, Weakness, Paresthesia, Numbness All Other Systems Reviewed And Are Negative: Yes Physical Exam Triage Information Reviewed: Yes Vital Signs On Initial Exam: Initial Vitals Temp Pulse Resp BP Pulse Ox 97.8 F 85 16 122/83 96 10/05/19 09:32 10/05/19 09:32 10/05/19 09:32 10/05/19 09:32 10/05/19 09:32 Vital Signs Reviewed: Yes Appearance: Positive: Well-Appearing, Well-Nourished Skin: Positive: Warm, Skin Color Reflects Adequate Perfusion Head/Face: Positive: Normal Head/Face Inspection Eyes: Positive: EOMI, CLAY, Conjunctiva Clear Neck: Positive: Supple, No Lymphadenopathy Respiratory/Lung Sounds: Positive: Clear to Auscultation, Breath Sounds Present Cardiovascular: Positive: RRR, Pulses are Symmetrical in both Upper and Lower Extremities Musculoskeletal: Positive: Normal, Strength/ROM Intact Neurological: Positive: Speech Normal Psychiatric: Positive: Affect/Mood Appropriate AVPU Assessment: Alert Procedures - Sedation Patient Received Moderate/Deep Sedation with Procedure: No Diagnostics - Vital Signs Vital Signs Temp Pulse Resp BP Pulse Ox 10/05/19 11:00 74 96 10/05/19 10:36 72 96/61 95 10/05/19 10:06 76 100/76 96 10/05/19 10:00 87 97 10/05/19 09:57 18 10/05/19 09:37 95 99 10/05/19 09:36 96 122/83 98 10/05/19 09:32 97.8 F 85 16 122/83 96 - Laboratory Lab Results: Lab Results 10/05/19 10/05/19 Range/Units 09:44 09:44 WBC 3.7 (3.5-10.8) 10^3/uL RBC 4.52 (3.70-4.87) 10^6 /uL Hgb 13.0 (12.0-16.0) g/dL Hct 39 (35-47) % MCV 85 (80-97) fL MCH 29 (27-31) pg MCHC 34 (31-36) g/dL RDW 14 (10-15) % Plt Count 232 (150-450) 10^3/uL MPV 7.0 L (7.4-10.4) fL Neut % (Auto) 29.8 % Lymph % (Auto) 51.5 % [place] % (Auto) 11.0 % Eos % (Auto) 6.8 % Baso % (Auto) 0.9 % Absolute Neuts (auto) 1.1 L (1.5-7.7) 10^3/ul Absolute Lymphs (auto) 1.9 (1.0-4.8) 10^3/ul Absolute Monos (auto) 0.4 (0-0.8) 10^3/ul Absolute Eos (auto) 0.3 (0-0.6) 10^3/ul Absolute Basos (auto) 0.0 (0-0.2) 10^3/ul Absolute Nucleated RBC 0.0 10^3/ul Nucleated RBC % 0.0 Sodium 135 (135-145) mmol/L Potassium 3.8 (3.5-5.0) mmol/L Chloride 101 (101-111) mmol/L Carbon Dioxide 27 (22-32) mmol/L Anion Gap 7 (2-11) mmol/L BUN 8 (6-24) mg/dL Creatinine 0.60 (0.51-0.95) mg/dL Est GFR ( Amer) 135.4 (>60) Est GFR (Non-Af Amer) 111.9 (>60) BUN/Creatinine Ratio 13.3 (8-20) Glucose 86 (70-100) mg/dL Calcium 9.2 (8.6-10.3) mg/dL Total Bilirubin 0.30 (0.2-1.0) mg/dL AST 19 (13-39) U/L ALT 11 (7-52) U/L Alkaline Phosphatase 51 (34-104) U/L Total Protein 6.5 (6.4-8.9) g/dL Albumin 4.2 (3.2-5.2) g/dL Globulin 2.3 (2-4) g/dL Albumin/Globulin Ratio 1.8 (1-3) Result Diagrams: 10/05/19 09:44 10/05/19 09:44 Lab Statement: Any lab studies that have been ordered have been reviewed, and results considered in the medical decision making process. Course/Dx - Course Course Of Treatment: Patient is given ativan 1mg on arrival. She appears well, however states she still feels a "aura." Labs are obtained and are WNL. On reexamination, patient states she is feeling improved and would like to be discharged home. Refilled her prescription Briviact. - Diagnoses Provider Diagnoses: Seizure Discharge ED - Sign-Out/Discharge Documenting (check all that apply): Patient Departure - Discharge Plan Condition: Stable Disposition: HOME Prescriptions: Brivaracetam (NF) [Briviact] 50 mg PO SEE INSTRUCTIONS #30 tablet MDD 250 Referrals: Madhavi Mayorga MD [Primary Care Provider] - Additional Instructions: Please follow up with your PCP as discussed I have refilled your prescription - Billing Disposition and Condition Condition: STABLE Disposition: Home
[2019-10-05 11:47] VITALS: BP 95/56
== END 2019-10-05 11:47 | disposition home or self-care (01) ==
LOC: ED 09:27
DX: R56.9 Unspecified convulsions (principal); E07.9 Disorder of thyroid, unspecified; D64.9 Anemia, unspecified; F32.9 Major depressive disorder, single episode, unspecified; Z87.891 Personal history of nicotine dependence; Z88.1 Allergy status to other antibiotic agents; Z88.5 Allergy status to narcotic agent; Z88.2 Allergy status to sulfonamides
CPT/HCPCS: 36415; 80053; 85025; 96374; 99282; J2060

== ENCOUNTER 2019-11-05 17:14 | Emergency (ER) | payer OTHER ==
[2019-11-05] MEDS ORDERED: LORazepam TAB(*) 1 MG PO ONE (17:57)
--- NOTE | 2019-11-05 18:21 | ED ---
Neurological HPI - HPI Summary HPI Summary: Pt is a 39 y/o F presenting to the ED with a chief complaint of an aura. She states her medications which changed 2 weeks ago (was on Briviact and now on Keppra and Aptiom). and has had multiple seizures over the past couple of days. Hx multiple seizures a week at baseline. She reports having an aura, described as a copper smell, metallic taste, L leg and arm weakness, and peripheral vision worsening. She states she comes here sometimes for a rescue drug" (benzo ). She has a neurologist in [place] and also follows with [place] NP. No recent infectious symptoms. - History of Current Complaint Chief Complaint: EDSeizure Stated Complaint: CONVULSIONS/SEIZURES PER EMS Time Seen by Provider: 11/05/19 17:28 Hx Obtained From: Patient Hx Last Menstrual Period: hysterectomy Onset/Duration: Sudden Onset, Started hours ago, Resolved Timing: Intermittent Episodes Lasting: - minutes Onset Severity: Moderate Current Severity: None Number of Seizures: 3 Neurological Deficit Location: LUE, LLE Pain Intensity: 0 Pain Scale Used: 0-10 Numeric Character: Weak, Visual Changes, Other: - aura Aggravating: Unknown Alleviating: Unknown Associated Signs and Symptoms: Positive: Visual Changes, Weakness - Additional Pertinent History Primary Care Physician: [id number] - Allergy/Home Medications Allergies/Adverse Reactions: Allergies Allergy/AdvReac Type Severity Reaction Status Date / Time bee venom protein (honey bee) Allergy Hives Verified 09/27/19 20:32 cephalexin [From Keflex] Allergy Hives Verified 09/27/19 20:32 morphine Allergy Hives Verified 09/27/19 20:32 mushroom Allergy Hives Verified 09/27/19 20:32 Sulfa (Sulfonamide Allergy Rash Verified 09/27/19 20:32 Antibiotics) enviromental Allergy Eyes Uncoded 09/27/19 20:32 Itchy/Swollen/Red/Watery PMH/Surg Hx/FS Hx/Imm Hx Previously Healthy: Yes Endocrine/Hematology History: Reports: Hx Thyroid Disease, Hx Anemia - IV iron tx Denies: Hx Anticoagulant Therapy, Hx Diabetes Cardiovascular History: Denies: Hx Congestive Heart Failure, Hx Hypertension, Hx Pacemaker/ICD Comment Only: Other Cardiovascular Problems/Disorders - Arteriovenous malformation - Sx repair in 2008. Right atrial enlargement. 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 RT TEMPORAL LOBE IN 2008 [place] (removed scar tissue). 5 CSECTIONS. VNM simulater.07/2017 Hx Anesthesia Reactions: No - Immunization History Date of Tetanus Vaccine: unk Date of Influenza Vaccine: fall 2018 Infectious Disease History: No Infectious Disease History: Denies: Hx Hepatitis, Hx Human Immunodeficiency Virus (HIV), Traveled Outside the US in Last 30 Days - Family History Known Family History: Positive: Cardiac Disease, Hypertension, Other - cancer; denies AVM in the family Negative: Diabetes - Social History Alcohol Use: None Hx Substance Use: Yes Substance Use Type: Reports: Marijuana Substance Use Comment - Amount & Last Used: occassional Hx Tobacco Use: Yes Smoking Status (MU): Former Smoker Have You Smoked in the Last Year: Yes - had of close relative on 2016 so smoked to cope Review of Systems Positive: Other - peripheral vision worsening Positive: Other - copper smell, metallic taste Neurological: Other - aura, copper smell, Positive: Weakness All Other Systems Reviewed And Are Negative: Yes Physical Exam - Summary Physical Exam Summary: Constitutional: Well-developed, Well-nourished, Alert. (-) Distressed Skin: Warm, Dry HENT: Normocephalic; Atraumatic Eyes: Conjunctiva normal Neck: Musculoskeletal ROM normal neck. (-) JVD, (-) Stridor, (-) Nuchal rigidity Cardio: Rhythm regular, rate normal, Heart sounds normal; Intact distal pulses; Radial pulses are 2+ and symmetric. (-) Murmur Pulmonary/Chest wall: Effort normal. (-) Respiratory distress, (-) Wheezes, (-) Rales Abd: Soft, (-) tenderness, (-) Distension, (-) Guarding, (-) Rebound Musculoskeletal: (-) Edema Lymph: (-) Cervical adenopathy Neuro: Alert, Oriented x3. Subjective weakness of L arm and L leg. Psych: Mood and affect Normal Triage Information Reviewed: Yes Vital Signs On Initial Exam: Initial Vitals Temp Pulse Resp BP Pulse Ox 98.5 F 77 18 116/80 99 11/05/19 17:23 11/05/19 17:23 11/05/19 17:23 11/05/19 17:23 11/05/19 17:23 Vital Signs Reviewed: Yes Procedures - Sedation Patient Received Moderate/Deep Sedation with Procedure: No Diagnostics - Vital Signs Vital Signs Temp Pulse Resp BP Pulse Ox 11/05/19 18:07 18 11/05/19 17:31 73 98 11/05/19 17:24 72 116/80 99 11/05/19 17:23 98.5 F 77 18 116/80 99 - Laboratory Lab Statement: Any lab studies that have been ordered have been reviewed, and results considered in the medical decision making process. Course/Dx - Course Course Of Treatment: 39 y/o F w hx AVM s/p resection w resultant epilepsy p/w aura of seizures. - complex neuro hx, managed by neurology at [facility]. Compliant w medications, has multiple seizures (no change in frequency). No signs of infection, no seizures in ED. - d/w neuro here, will give one dose PO ativan, can take PM medications and call her neurologist tmrw am - Diagnoses Provider Diagnoses: Epilepsy, Seizure Discharge ED - Sign-Out/Discharge Documenting (check all that apply): Patient Departure - Discharge Plan Condition: Stable Disposition: HOME Patient Education Materials: Epilepsy (ED) Referrals: Madhavi Mayorga MD [Primary Care Provider] - Additional Instructions: You were seen in the emergency department for a seizure. Please follow-up with a neurologist. Please take a shower and do not take a bath, do not swim alone. Do not drive or operate machinery. Please continue taking medications as prescribed and follow-up with your doctor in the next 1-2 days. Please return to emergency department for continued seizures, or if you're concerned - Billing Disposition and Condition Condition: STABLE Disposition: Home - Attestation Statements Document Initiated by Maria De Jesusibtyler: Yes Documenting Scribe: Elizabeth Blount Provider For Whom Elle is Documenting (Include Credential): Javier Gómez MD. Scribe Attestation: I, Elizabeth Blount, scribed for Javier Gómez MD. on 11/06/19 at 1938. Scribe Documentation Reviewed: Yes Provider Attestation: The documentation as recorded by the scribe, Elizabeth Blount accurately reflects the service I personally performed and the decisions made by me, Javier Gómez MD. Status of Scribe Document: Viewed Consult Consult: 4212 - Dr. Henderson of neurology agrees with 1 dose of Ativan PO and advises f/u with [place].
[2019-11-05 18:53] VITALS: BP 104/82
== END 2019-11-05 18:54 | disposition home or self-care (01) ==
LOC: ED 17:14
DX: G40.909 Epilepsy, unspecified, not intractable, without status epilepticus (principal); R53.1 Weakness; E03.9 Hypothyroidism, unspecified; R51 Headache; Z87.891 Personal history of nicotine dependence
CPT/HCPCS: 99282; A9270-GY

== ENCOUNTER 2019-11-25 22:42 | Emergency (ER) | payer OTHER ==
[2019-11-25] MEDS ORDERED: Lorazepam PYXIS KEY PRN ×2 (22:55→23:10)
[2019-11-25] MEDS ORDERED: LORazepam INJ* 2 MG/ML 1 ML VIAL IV PUSH ONE ×2 (22:55→23:10)
[2019-11-25] MEDS ORDERED: NS 0.9% 1000 ML** 1,000 ML IV ONE (23:10)
[2019-11-25] MEDS ORDERED: Ondansetron INJ* 2 MG/ML VIAL IV ONE (23:10)
[2019-11-25 23:14] LABS: ABS Eosinophils 0.1 10^3/ul (0-0.6); ABS Lymphocytes 2.1 10^3/ul (1.0-4.8); ABS Monocytes 0.4 10^3/ul (0-0.8); ABS Neutrophils 2.1 10^3/ul (1.5-7.7); Eosinophil % 2.1 %; Hematocrit 37 % (35-47); Hemoglobin 12.8 g/dL (12.0-16.0); Lymphocyte % 44.9 %; Mean Corpuscular HGB Conc 35 g/dL (31-36); Mean Corpuscular Hemoglobin 30 pg (27-31); Mean Corpuscular Volume 85 fL (80-97); Mean Platelet Volume 6.8 fL (7.4-10.4); Nucleated Red Blood Cells % 0.1; Platelet Count 248 10^3/uL (150-450); Red Blood Count 4.35 10^6 /uL (3.70-4.87); Red Cell Distribution Width 14 % (10-15); White Blood Count 4.8 10^3/uL (3.5-10.8)
--- NOTE | 2019-11-25 23:16 | ED ---
Seizure - HPI Summary HPI Summary: 39 year old female presents with recurrent seizure todays. She states she had 2 seizures earlier today. States that she has been having aura for the past 20 minutes. She states that it is a different taste in her mouth that normal. States that she has her normal left arm weakness when she gets an aura. She states that her seizure may happen any moment. She states she has not missed any overdose of the medication. She sees Dr. Ortega and Dr. Das in the area. She is also seen in [place]. She states that she was seen there last month and was put back on [facility]. States she has had a seizure since. She also has a magnet. She denies any recent illness. - History Of Current Complaint Chief Complaint: EDSeizure Time Seen by Provider: 11/25/19 22:55 - Allergies/Home Medications Allergies/Adverse Reactions: Allergies Allergy/AdvReac Type Severity Reaction Status Date / Time bee venom protein (honey bee) Allergy Hives Verified 09/27/19 20:32 cephalexin [From Keflex] Allergy Hives Verified 09/27/19 20:32 morphine Allergy Hives Verified 09/27/19 20:32 mushroom Allergy Hives Verified 09/27/19 20:32 Sulfa (Sulfonamide Allergy Rash Verified 09/27/19 20:32 Antibiotics) enviromental Allergy Eyes Uncoded 09/27/19 20:32 Itchy/Swollen/Red/Watery PMH/Surg Hx/FS Hx/Imm Hx Endocrine/Hematology History: Reports: Hx Thyroid Disease, Hx Anemia - IV iron tx Denies: Hx Anticoagulant Therapy, Hx Diabetes Cardiovascular History: Denies: Hx Congestive Heart Failure, Hx Hypertension, Hx Pacemaker/ICD Comment Only: Other Cardiovascular Problems/Disorders - Arteriovenous malformation - Sx repair in 2008. Right atrial enlargement. 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 RT TEMPORAL LOBE IN 2008 [place] (removed scar tissue). 5 CSECTIONS. VNM simulater.07/2017 Hx Anesthesia Reactions: No - Immunization History Date of Tetanus Vaccine: unk Date of Influenza Vaccine: fall 2018 Infectious Disease History: No Infectious Disease History: Denies: Hx Hepatitis, Hx Human Immunodeficiency Virus (HIV), Traveled Outside the [place] in Last 30 Days - Family History Known Family History: Positive: Cardiac Disease, Hypertension, Other - cancer; denies AVM in the family Negative: Diabetes - Social History Alcohol Use: None Hx Substance Use: Yes Substance Use Type: Reports: Marijuana Substance Use Comment - Amount & Last Used: occassional Hx Tobacco Use: Yes Smoking Status (MU): Former Smoker Have You Smoked in the Last Year: Yes - had of close relative on 2016 so smoked to cope Review of Systems Negative: Fever Negative: Chest Pain Negative: Shortness Of Breath Neurological: Other - seizure All Other Systems Reviewed And Are Negative: Yes Physical Exam Triage Information Reviewed: Yes Vital Signs On Initial Exam: Initial Vitals Temp Pulse Resp BP Pulse Ox 97 F 60 14 127/72 99 11/25/19 22:50 11/25/19 22:50 11/25/19 22:50 11/25/19 22:50 11/25/19 22:50 Vital Signs Reviewed: Yes Appearance: Positive: Well-Appearing Skin: Positive: Warm, Dry Head/Face: Positive: Normal Head/Face Inspection Eyes: Positive: Normal, EOMI, CLAY, Conjunctiva Clear ENT: Positive: Normal ENT inspection, Pharynx normal, TMs normal Respiratory/Lung Sounds: Positive: Clear to Auscultation, Breath Sounds Present Cardiovascular: Positive: Normal, RRR Musculoskeletal: Positive: Normal Neurological: Positive: Alert, Oriented to Person Place, Time, CN Intact II-III , Other - states has no drip strenght on left arm and left leg Psychiatric: Positive: Normal Procedures - Sedation Patient Received Moderate/Deep Sedation with Procedure: No Diagnostics - Vital Signs Vital Signs Temp Pulse Resp BP Pulse Ox 11/25/19 22:50 97 F 60 14 127/72 99 - Laboratory Lab Results: Lab Results 11/25/19 Range/Units 23:01 WBC 4.8 (3.5-10.8) 10^3/uL RBC 4.35 (3.70-4.87) 10^6 /uL Hgb 12.8 (12.0-16.0) g/dL Hct 37 (35-47) % MCV 85 (80-97) fL MCH 30 (27-31) pg MCHC 35 (31-36) g/dL RDW 14 (10-15) % Plt Count 248 (150-450) 10^3/uL MPV 6.8 L (7.4-10.4) fL Neut % (Auto) 44.3 % Lymph % (Auto) 44.9 % [place] % (Auto) 8.0 % Eos % (Auto) 2.1 % Baso % (Auto) 0.7 % Absolute Neuts (auto) 2.1 (1.5-7.7) 10^3/ul Absolute Lymphs (auto) 2.1 (1.0-4.8) 10^3/ul Absolute Monos (auto) 0.4 (0-0.8) 10^3/ul Absolute Eos (auto) 0.1 (0-0.6) 10^3/ul Absolute Basos (auto) 0.0 (0-0.2) 10^3/ul Absolute Nucleated RBC 0.0 10^3/ul Nucleated RBC % 0.1 Result Diagrams: 11/25/19 23:01 11/25/19 23:06 Lab Statement: Any lab studies that have been ordered have been reviewed, and results considered in the medical decision making process. - EKG No standard instances Cardiac Rate: NL EKG Rhythm: Sinus Rhythm EKG Comparison: No Significant Change Summary of EKG Findings: sinus rhythm Re-Evaluation - Re-Evaluation First Eval Re-Evaluation Time: 00:39 Change: Improved Comment: feeling better, aura is gone Second Eval Re-Evaluation Time: 01:32 Change: Improved Comment: sleeping, no symptoms at this time Course/Dx - Course Course Of Treatment: 39 year old female presents with recurrent seizure todays. She states she had 2 seizures earlier today. States that she has been having aura for the past 20 minutes. She states that it is a different taste in her mouth that normal. States that she has her normal left arm weakness when she gets an aura. She states that her seizure may happen any moment. She states she has not missed any overdose of the medication. She sees Dr. Ortega and Dr. Das in the area. She is also seen in [place]. She states that she was seen there last month and was put back on [facility]. States she has had a seizure since. She also has a magnet. She denies any recent illness. On exam patient has weakness noted to left arms and legs. No other neuro deficit noted. Will give two Ativan. EKG shows sinus rhythm. wbc normal. magnesium 1.8 so gave supplement. sodium 132 and gave fluids. has no strength in arms after ativan. patient was observed here for 3 hours as no seizure activity noted. patient feel a sleep after ativan and denies any viridiana. told to contact neurology for follow up and discuss meds. sent for [facility] to have follow up with neurology about such. patient understand and agrees with plan. - Diagnoses Differential Diagnosis/HQI/PQRI: Positive: Metabolic Disorder, Known Seizure Disorder, Other - uti Provider Diagnoses: Epilepsy Discharge ED - Sign-Out/Discharge Documenting (check all that apply): Patient Departure - Discharge Plan Condition: Good Disposition: HOME Patient Education Materials: Epilepsy (ED) Referrals: Leatha Coles MD [Medical Doctor] - Madhavi Mayorga MD [Primary Care Provider] - Yoni Ortega MD [Medical Doctor] - Additional Instructions: follow up with dr coles, call office tomorrow Take seizure meds as prescribed Return to ED if develop any new or worsening symptoms - Billing Disposition and Condition Condition: GOOD Disposition: Home
[2019-11-25 23:28] LABS: Albumin 4.1 g/dL (3.2-5.2); Albumin/Globulin Ratio 2.1 (1-3); BUN/Creatinine Ratio 6.7 (8-20); Calcium 8.8 mg/dL (8.6-10.3); EGFR African American 135.4 (>60); EGFR Non-African American 111.9 (>60); Magnesium 1.8 mg/dL (1.9-2.7); Potassium 3.5 mmol/L (3.5-5.0); Total Bilirubin 0.3 mg/dL (0.2-1.0); Total Protein 6.1 g/dL (6.4-8.9)
[2019-11-25] MEDS ORDERED: Magnesium Sulfate 1 GM IV* 1 GM/100 ML BAG IV ONE (23:44)
[2019-11-26] MEDS ORDERED: NS 0.9% 1000 ML** 1,000 ML IV ONE (00:27)
[2019-11-26 01:52] VITALS: BP 98/60
== END 2019-11-26 01:51 | disposition home or self-care (01) ==
LOC: ED 22:42
DX: G40.909 Epilepsy, unspecified, not intractable, without status epilepticus (principal); E03.9 Hypothyroidism, unspecified; D64.9 Anemia, unspecified; Z87.891 Personal history of nicotine dependence; R53.1 Weakness; Z79.899 Other long term (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
CPT/HCPCS: 36415; 80053; 80177; 83605; 83735; 85025; 85610; 93005; 96361; 96365; 96375; 99283; J2060; J2405; J3475

== ENCOUNTER 2019-12-02 06:11 | Emergency (ER) | payer OTHER ==
[2019-12-02] MEDS ORDERED: Lorazepam PYXIS KEY PRN (06:22)
[2019-12-02] MEDS ORDERED: LORazepam INJ* 2 MG/ML 1 ML VIAL IV PUSH ONE (06:22)
[2019-12-02] MEDS ORDERED: Ondansetron INJ* 2 MG/ML VIAL IV ONE (06:29)
[2019-12-02] MEDS ORDERED: Lorazepam PYXIS KEY ONE (06:30)
--- NOTE | 2019-12-02 06:36 | ED ---
Seizure - HPI Summary HPI Summary: Patient is a 39-year-old female presenting to the ED with a history of ongoing and recurrent seizures. Pt states she has had a aura over the past few days and was also seen here last week for same. She had associated diarrhea and nausea/vomiting over the past 2 days as well. Endorses 1 seizure at 2am this morning. Continues to have a aura and BHATIA. She does endorse L arm weakness, which she states is her baseline when she has an aura. States when she gets her aura she tends to have a metallic taste in her mouth, a BHATIA a visual disturbance to the L side which she describes as waterfall. She also endorses dizziness with her auras. This is similar to her previous auras in that regard, however she does states something is wrong but unable to discern how this aura is different. She states she had a 101.2 temp at home yesterday, took Tylenol and this reduced to 97.0. No fevers, sweats or chills since that time. No abd pain, urinary symptoms. Does endorse diarrhea with the last episode this morning she describes as watery. States this has been having diarrhea 5-6 times over the past 2 days. Not malodorous. Denies hematemesis, melena, hematochezia. Denies cough, congestion. Endorses rhinorrhea. She continues to follow with Dr. Coles, Dr. Ortega and [place]. No new medications since over 1 mos ago when she was seen in [place]. She is currently on Keppra and Aptiom. Continues to have her stimulator but states she does not feel it is helping. Tends to need to come to the ED for Ativan as rescue medication. - History Of Current Complaint Chief Complaint: EDSeizure Time Seen by Provider: 12/02/19 06:14 Hx Obtained From: Patient Onset/Duration: Sudden Onset Severity Of Seizure: Self-Limited Location Of Seizure: All Extremities Character: Generalized Clonic-Tonic Aggravating Factor(s): Nothing Alleviating Factor(s): Spontaneous Resolution Associated Signs And Symptoms: Emotional Distress Related History: Medication Compliant - Risk Factors SAH Risk Factors: Negative Meningitis Risk Factors: Negative SDH Risk Factor: Seizures - Allergies/Home Medications Allergies/Adverse Reactions: Allergies Allergy/AdvReac Type Severity Reaction Status Date / Time bee venom protein (honey bee) Allergy Hives Verified 12/02/19 06:21 cephalexin [From Keflex] Allergy Hives Verified 12/02/19 06:21 morphine Allergy Hives Verified 12/02/19 06:21 mushroom Allergy Hives Verified 12/02/19 06:21 Sulfa (Sulfonamide Allergy Rash Verified 12/02/19 06:21 Antibiotics) enviromental Allergy Eyes Uncoded 12/02/19 06:21 Itchy/Swollen/Red/Watery Home Medications: Home Medications levETIRAcetam [Levetiracetam] 1,500 mg PO BID 12/02/19 [History Confirmed ] PMH/Surg Hx/FS Hx/Imm Hx Previously Healthy: No Endocrine/Hematology History: Reports: Hx Thyroid Disease, Hx Anemia - IV iron tx Denies: Hx Anticoagulant Therapy, Hx Diabetes Cardiovascular History: Denies: Hx Congestive Heart Failure, Hx Hypertension, Hx Pacemaker/ICD Comment Only: Other Cardiovascular Problems/Disorders - Arteriovenous malformation - Sx repair in 2008. Right atrial enlargement. 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 RT TEMPORAL LOBE IN 2008 [place] (removed scar tissue). 5 CSECTIONS. VNM simulater.07/2017 Hx Anesthesia Reactions: No - Immunization History Date of Tetanus Vaccine: unk Date of Influenza Vaccine: fall 2018 Hx Pertussis Vaccination: No Immunizations Up to Date: Yes Infectious Disease History: No Infectious Disease History: Denies: Hx Hepatitis, Hx Human Immunodeficiency Virus (HIV), Traveled Outside the US in Last 30 Days - Family History Known Family History: Positive: Cardiac Disease, Hypertension, Other - cancer; denies AVM in the family Negative: Diabetes - Social History Occupation: Unemployed Lives: With Family Alcohol Use: None Hx Substance Use: Yes Substance Use Type: Reports: Marijuana Substance Use Comment - Amount & Last Used: occassional Hx Tobacco Use: Yes Smoking Status (MU): Former Smoker Have You Smoked in the Last Year: Yes - had of close relative on 2016 so smoked to cope Review of Systems Negative: Fever, Chills, Fatigue, Skin Diaphoresis Positive: Blurred Vision - L sided peripheral vision affected. Negative: Diplopia, Drainage, Erythema, Other Negative: Palpitations, Chest Pain Negative: Shortness Of Breath, Cough Positive: Vomiting, Diarrhea, Nausea. Negative: Abdominal Pain Genitourinary: Negative Positive: no symptoms reported, see HPI Negative: Arthralgia, Myalgia Skin: Negative Positive: Headache - diffuse, Weakness - L sided (states typical with her aura) . Negative: Paresthesia, Numbness, Syncope, Slurred Speech All Other Systems Reviewed And Are Negative: Yes Physical Exam Triage Information Reviewed: Yes Vital Signs On Initial Exam: Initial Vitals Temp Pulse Resp BP Pulse Ox 97.6 F 82 16 150/92 94 12/02/19 06:12 12/02/19 06:12 12/02/19 06:12 12/02/19 06:12 12/02/19 06:12 Vital Signs Reviewed: Yes Appearance: Positive: Well-Appearing, Well-Nourished Skin: Positive: Warm, Skin Color Reflects Adequate Perfusion Eyes: Positive: EOMI, CLAY, Conjunctiva Clear Neck: Positive: Supple, No Lymphadenopathy Respiratory/Lung Sounds: Positive: Clear to Auscultation, Breath Sounds Present Cardiovascular: Positive: RRR, Pulses are Symmetrical in both Upper and Lower Extremities. Negative: Leg Edema Left, Leg Edema Right Abdomen Description: Positive: Nontender, No Organomegaly. Negative: CVA Tenderness (R), CVA Tenderness (L) Musculoskeletal: Positive: Normal, Strength/ROM Intact Neurological: Positive: Sensory/Motor Intact, Alert, Oriented to Person Place, Time, Speech Normal. Negative: Slurred Speech Psychiatric: Positive: Affect/Mood Appropriate AVPU Assessment: Alert - Wolfgang Coma Scale Best Eye Response: 4 - Spontaneous Best Motor Response: 6 - Obeys Commands Best Verbal Response: 5 - Oriented Coma Scale Total: 15 Procedures - Sedation Patient Received Moderate/Deep Sedation with Procedure: No Diagnostics - Vital Signs Vital Signs Temp Pulse Resp BP Pulse Ox 12/02/19 06:36 22 12/02/19 06:16 94 21 141/93 97 12/02/19 06:15 3 12/02/19 06:12 97.6 F 82 16 150/92 94 - Laboratory Result Diagrams: 12/02/19 06:39 12/02/19 06:39 Lab Statement: Any lab studies that have been ordered have been reviewed, and results considered in the medical decision making process. Re-Evaluation - Re-Evaluation First Eval Change: Improved - pt nausea improved, continues to have aura present Second Eval Change: Improved - pt feeling improved - no feelings of aura or impending seizure Course/Dx - Course Course Of Treatment: This patient is evaluated for recurrent seizures. Patient states she had a seizure at 2 AM, however continues to have an aura. Denies any recent medication changes over the past month. Denies any overdose or missing medication doses. Pt appears ill on arrival and states she has been vomiting. She appears dry with dry mucous membranes. States she has not been eating well. Lungs CTA, RRR. EOMI/PERRL. No weakness noted bilaterally to the upper and lower extremeties. No nystagmus. EKG obtained: rate of 83, no stemi, NSR. Pt given ativan 1mg and zofran 4mg IV. labs shows: no acute findings. On reexamination, patient states she is feeling improved and is okay for discharge at this time. She states she will call Dr. Ortega to make a follow- up appointment. Patient does not have any feelings of impending seizure or aura at this time. - Diagnoses Differential Diagnosis/HQI/PQRI: Positive: Other - nausea, vomiting, diarrhea, viral syndrome, aura, migraine Provider Diagnoses: Seizure Discharge ED - Sign-Out/Discharge Documenting (check all that apply): Patient Departure - Discharge Plan Condition: Stable Disposition: HOME Referrals: Madhavi Mayorga MD [Primary Care Provider] - Additional Instructions: Please call Dr. Ortega to make an appt No new or changing medications at this time Please return or call Dr. Ortega if you have any worsening condition - Billing Disposition and Condition Condition: STABLE Disposition: Home
[2019-12-02 06:46] LABS: ABS Eosinophils 0.2 10^3/ul (0-0.6); ABS Lymphocytes 2.8 10^3/ul (1.0-4.8); ABS Monocytes 0.6 10^3/ul (0-0.8); ABS Neutrophils 2.4 10^3/ul (1.5-7.7); Eosinophil % 3.9 %; Hematocrit 36 % (35-47); Hemoglobin 12.7 g/dL (12.0-16.0); Lymphocyte % 46.6 %; Mean Corpuscular HGB Conc 35 g/dL (31-36); Mean Corpuscular Hemoglobin 30 pg (27-31); Mean Corpuscular Volume 85 fL (80-97); Mean Platelet Volume 6.6 fL (7.4-10.4); Platelet Count 254 10^3/uL (150-450); Red Blood Count 4.29 10^6 /uL (3.70-4.87); Red Cell Distribution Width 14 % (10-15)
[2019-12-02 06:54] LABS: INR 1.02 (0.82-1.09)
[2019-12-02 07:11] LABS: Albumin 4.2 g/dL (3.2-5.2); Albumin/Globulin Ratio 2.1 (1-3); BUN/Creatinine Ratio 10.5 (8-20); Calcium 9.1 mg/dL (8.6-10.3); EGFR African American 143.6 (>60); EGFR Non-African American 118.7 (>60); Potassium 3.6 mmol/L (3.5-5.0); Total Bilirubin 0.3 mg/dL (0.2-1.0); Total Protein 6.2 g/dL (6.4-8.9)
[2019-12-02 07:28] LABS: Urine Appearance Cloudy; Urine Bilirubin Negative (Negative); Urine Blood Negative (Negative); Urine Color Yellow; Urine Glucose Negative (Negative); Urine Ketones Negative (Negative); Urine Nitrite Negative (Negative); Urine Protein Negative (Negative); Urine Specific Gravity 1.021 (1.010-1.030); Urine Urobilinogen Negative (Negative)
[2019-12-02 09:57] VITALS: BP 103/67
== END 2019-12-02 09:57 | disposition home or self-care (01) ==
LOC: ED 06:11
DX: G40.909 Epilepsy, unspecified, not intractable, without status epilepticus (principal); R11.0 Nausea; R51 Headache; R53.1 Weakness; Z88.1 Allergy status to other antibiotic agents; Z91.030 Bee allergy status; Z88.5 Allergy status to narcotic agent; Z88.2 Allergy status to sulfonamides; Z91.018 Allergy to other foods; Z91.09 Other allergy status, other than to drugs and biological substances; Z87.891 Personal history of nicotine dependence
CPT/HCPCS: 36415; 80053; 81003; 83605; 83735; 85025; 85610; 93005; 96374; 96375; 99283; J2060; J2405

== ENCOUNTER → 2019-12-04 03:29 | Emergency (ER) | payer OTHER ==
[~2019-12-04 03:29] MED LIST changes: +Acetaminophen TAB* 325 MG PO ONE; -Ketorolac INJ* 15 MG/ML 1 ML VIAL IV PUSH ONE; -Ketorolac INJ* 15 MG/ML 1 ML VIAL ONE; +Ondansetron INJ* 2 MG/ML VIAL IV ONE
--- NOTE | 2019-12-04 07:49 | ED ---
Progress - Progress Note Progress Note: The patient is a sign-out from Dr. Nadeem Miller MD, to Dr. Dylon Dean MD, at change of shift at 0700 on 12/04/2019, pending labs, EKG, Brain CT, neurology consult, and disposition. 0735 - re-eval with the patient, she is awake although still having auras intermittently 0739 - spoke with Dr. Solorio from neuro concerning the patient, he will come see the patient in the ED Blood work reveals hemoglobin of 11.2, hematocrit of 33, sodium of 131, BUN of 4 , calcium of 8.4, and magnesium of 1.7. Negative troponin. EKG reveals NSR at 63 bpm. CXR reveals hyperinflation consistent with COPD or reactive airway disease. Brain CT is negative for acute findings 1130 - Dr. Solorio has evaluated the patient and has determined she is safe for discharge with neurology follow up with Dr. Ortega - Results/Orders Results/Orders: EKG (0759): Normal sinus rhythm at 63 bpm. No STEMI. ED physician has reviewed and interpreted this EKG. CXR Impression: Hyperinflation which can be seen with COPD or reactive airway disease. No active cardiopulmonary disease. ED physician has reviewed this report. Brain CT Impression: No acute intracranial pathology. Stable encephalomalacia of the right cerebral hemisphere. ED physician has reviewed this report. Re-Evaluation - Re-Evaluation First Eval Re-Evaluation Time: 07:35 Comment: Patient awake, still having intermittent auras Course/Dx - Course Course Of Treatment: The patient is a 39 y/o female who has a history of pseudo seizures in which she always experiences a metallic smell, copper taste, and sensation in the adventist, as well as auras. This morning, she had more of a syncopal event in which she remembers getting out of bed and then she woke up on the floor, which is not consistent with her seizures. Since then, she has been experiencing auras, but she hasnt had any seizures. She spoke with her neurologists Dr. Ortega and Dr. Das, and they recommended she come here. Dr. Miller saw the patient this morning. There were orders that were not transcribed into computer from earlier in the visit. At this point, the neurology consult and execution for the orders is pending, as she is now waiting for labs, EKG, Brain CT, and neurology consult in order to determine her disposition following shift change at 0700 on 12/04/2019. I discussed the patient's case with Dr. Solorio from neurology, and he will come see the patient in the emergency department. Blood work reveals hemoglobin of 11.2, hematocrit of 33, sodium of 131, BUN of 4, calcium of 8.4, and magnesium of 1.7. Negative troponin. In the ED course, the patient was administered Zofran. EKG reveals normal sinus rhythm at 63 bpm. CXR reveals hyperinflation consistent with COPD or reactive airway disease. Brain CT is negative for acute findings. After evaluating the patient, Dr. Solorio has determined that she is safe for discharge with follow up with Dr. Ortega, who Dr. Solorio will speak with. Patient understands and agrees with plan. - Diagnoses Provider Diagnoses: Seizure - Provider Notifications Discussed Care Of Patient With: Nadeem Solorio - neurology Time Discussed With Above Provider: 07:39 Instructed by Provider To: Other - I discussed the patient's case with Dr. Solorio, who will come see the patient in the ED. After evaluating the patient, Dr. Solorio suggests discharge as the patient seems to have been suffering from her typical seizures. He recommends follow up with Dr. Ortega in a few days, and he will tell Dr. Ortega about the patient's presentation today. Discharge ED - Sign-Out/Discharge Documenting (check all that apply): Patient Departure - Patient will be discharged home., Receiving Sign-Out Receiving patient FROM: Nadeem Miller - Patient is a sign-out from Dr. Nadeem Miller MD, at 0700 on 12/04/2019, pending labs, EKG, Brain CT, neurology consult, and disposition. - Discharge Plan Condition: Stable Disposition: HOME Patient Education Materials: Recurrent Seizures in Adults (ED) Referrals: Madhavi Mayorga MD [Primary Care Provider] - If Needed Yoni Ortega MD [Medical Doctor] - 5 Days Additional Instructions: Follow up with Dr. Ortega following today's visit in 3-[address] Solorio will speak to Dr. Ortega about your visit. Return to the emergency department for any new or worsening symptoms. - Attestation Statements Document Initiated by Scribe: Yes Documenting Scribe: Milla Lion Provider For Whom Scribe is Documenting (Include Credential): Dr. Dylon Dean MD Scribe Attestation: Milla Bolton, scribed for Dr. Dylon Dean MD on 12/04/19 at 1557. Status of Scribe Document: Ready Procedures - Sedation Patient Received Moderate/Deep Sedation with Procedure: No
--- NOTE | 2019-12-04 07:52 | ED ---
Neurological HPI - HPI Summary HPI Summary: 35 year old female presents to the ED with a chief complaint of seizure several hours ago. Patient felt lightheaded before her syncope, but no aura. Patient syncoped and woke up with a headache, dizziness, and nausea. She also notes dysuria starting today. Upon arrival patient feels a metallic taste in her mouth , weakness in her left side, and ear pain. Patient has been having seizures since 2006. Arterial brain inflammation surgery during Patient takes Keppra for seizures. - History of Current Complaint Chief Complaint: EDSeizure Stated Complaint: SEIZURE Time Seen by Provider: 12/04/19 05:47 Hx Obtained From: Patient Hx Last Menstrual Period: hysterectomy Onset/Duration: Sudden Onset, Still Present Timing: Intermittent Episodes Lasting: - minutes Onset Severity: Severe Current Severity: None Seizure Severity: Severe Number of Seizures: 1 Neurological Deficit Location: Generalized Episode Lasting: Seconds/Minutes Syncope Context: Unwitnessed, Loss of Consciousness: Yes Frequency: Episodes x___ - 1 Seizure Character: Generalized Associated Signs and Symptoms: Positive: Headache, Loss of Consciousness, Seizure, Pain Related Hx: Seizure - Additional Pertinent History Primary Care Physician: CORAL - Allergy/Home Medications Allergies/Adverse Reactions: Allergies Allergy/AdvReac Type Severity Reaction Status Date / Time bee venom protein (honey bee) Allergy Hives Verified 12/02/19 06:21 cephalexin [From Keflex] Allergy Hives Verified 12/02/19 06:21 morphine Allergy Hives Verified 12/02/19 06:21 mushroom Allergy Hives Verified 12/02/19 06:21 Sulfa (Sulfonamide Allergy Rash Verified 12/02/19 06:21 Antibiotics) enviromental Allergy Eyes Uncoded 12/02/19 06:21 Itchy/Swollen/Red/Watery PMH/Surg Hx/FS Hx/Imm Hx Endocrine/Hematology History: Reports: Hx Thyroid Disease, Hx Anemia - IV iron tx Denies: Hx Anticoagulant Therapy, Hx Diabetes Cardiovascular History: Denies: Hx Congestive Heart Failure, Hx Hypertension, Hx Pacemaker/ICD Comment Only: Other Cardiovascular Problems/Disorders - Arteriovenous malformation - Sx repair in 2008. Right atrial enlargement. 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 RT TEMPORAL LOBE IN 2008 [place] (removed scar tissue). 5 CSECTIONS. VNM simulater.07/2017 Hx Anesthesia Reactions: No - Immunization History Date of Tetanus Vaccine: unk Date of Influenza Vaccine: fall 2018 Infectious Disease History: Denies: Hx Hepatitis, Hx Human Immunodeficiency Virus (HIV), Traveled Outside the [place] in Last 30 Days - Family History Known Family History: Positive: Cardiac Disease, Hypertension, Other - cancer; denies AVM in the family Negative: Diabetes - Social History Alcohol Use: None Hx Substance Use: Yes Substance Use Type: Reports: Marijuana Substance Use Comment - Amount & Last Used: occassional Hx Tobacco Use: Yes Smoking Status (MU): Former Smoker Have You Smoked in the Last Year: Yes - had of close relative on 2016 so smoked to cope Review of Systems Positive: Ear Ache Positive: Nausea Positive: dysuria Neurological: Other - dizziness, seizure Positive: Headache, Weakness All Other Systems Reviewed And Are Negative: Yes Physical Exam - Summary Physical Exam Summary: Constitutional: Well-developed, Well-nourished, Alert. (-) Distressed Skin: Warm, Dry HENT: Normocephalic; Atraumatic Eyes: Conjunctiva normal. Visual dixon intact with binocular vision. 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 Neck: Musculoskeletal ROM normal neck. (-) JVD, (-) Stridor, (-) Tracheal deviation Cardio: Rhythm regular, rate normal, Heart sounds normal; Intact distal pulses; The pedal pulses are 2+ and symmetric. Radial pulses are 2+ and symmetric. Pulmonary/Chest wall: Effort normal. (-) Respiratory distress, (-) Wheezes, (-) Rales Abd: Soft, (-) tenderness, (-) Distension, (-) Guarding, (-) Rebound Musculoskeletal: (-) Edema Neuro: Alert, Oriented x3 Psych: Mood and affect Normal Triage Information Reviewed: Yes Vital Signs Reviewed: Yes Procedures - Sedation Patient Received Moderate/Deep Sedation with Procedure: No Re-Evaluation - Re-Evaluation First Eval Re-Evaluation Time: 07:35 Comment: Patient awake, still having intermittent auras Course/Dx - Course Course Of Treatment: 35 year old female presents to the ED with a chief complaint of seizure several hours ago. Patient felt lightheaded before her syncope, but no aura. Patient syncoped and woke up with a headache, dizziness, and nausea. She also notes dysuria starting today. Upon arrival patient feels a metallic taste in her mouth, weakness in her left side, and ear pain. Patient has been having seizures since 2006. Arterial brain inflammation surgery during Patient takes Keppra for seizures. Visual dixon intact with binocular vision. 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 Patient is a signout to Dr. Dean at change of shifts at 0700 on 12/04/19, pending brain CT. - Diagnoses Provider Diagnoses: Syncope Discharge ED - Sign-Out/Discharge Documenting (check all that apply): Sign-Out Patient Signing out patient TO: Dylon Dean - Signing out patient from Dr. Miller to Dr. Dean at change of shifts at 0700 on 12/04/19. - Discharge Plan Condition: Stable Referrals: Madhavi Mayorga MD [Primary Care Provider] - - Attestation Statements Document Initiated by Scribe: Yes Documenting Scribe: Scotty Finley Provider For Whom Scribe is Documenting (Include Credential): Nadeem Miller MD Scribe Attestation: Scotty Bolton, scribed for Nadeem Miller MD on 12/04/19 at 0802. Status of Scribe Document: Ready
[2019-12-04 09:13] LABS: ABS Eosinophils 0.2 10^3/ul (0-0.6); ABS Monocytes 0.6 10^3/ul (0-0.8); ABS Neutrophils 2.3 10^3/ul (1.5-7.7); Eosinophil % 2.7 %; Hematocrit 33 % (35-47); Hemoglobin 11.2 g/dL (12.0-16.0); Lymphocyte % 49.9 %; Mean Corpuscular HGB Conc 34 g/dL (31-36); Mean Corpuscular Hemoglobin 29 pg (27-31); Mean Corpuscular Volume 86 fL (80-97); Mean Platelet Volume 6.7 fL (7.4-10.4); Platelet Count 222 10^3/uL (150-450); Red Blood Count 3.83 10^6 /uL (3.70-4.87); Red Cell Distribution Width 14 % (10-15); White Blood Count 6.1 10^3/uL (3.5-10.8)
[2019-12-04 09:28] LABS: BUN/Creatinine Ratio 7.7 (8-20); Calcium 8.4 mg/dL (8.6-10.3); EGFR African American 159.7 (>60); Magnesium 1.7 mg/dL (1.9-2.7); Potassium 3.7 mmol/L (3.5-5.0)
[2019-12-04 09:31] LABS: Troponin I 0.01 ng/mL (<0.03)
[2019-12-04 12:39] VITALS: BP 138/70
--- NOTE | 2019-12-04 20:38 | CONS ---
CONSULTATION REPORT: DATE OF CONSULT: 12/04/19 - EMERGENCY DEPT PATIENT OF: Dr. Ortega, Dr. Mayorga, Dr. Dean. HISTORY OF PRESENT ILLNESS: Belinda is the 39-year-old woman who I was asked to evaluate for a possible seizure. She had some auras that she frequently does , which were metallic taste in her mouth last night, and then she woke up on the floor out of her bed. The ER notes say that she was lightheaded, but she denies that to me and she said that she had metallic taste this morning as well , but felt back to her normal. She was last seen in April of 2019 by [place] in our office and was doing relatively well. No changes in medication was made and there was going to be an appointment with Dr. Coles, which we do not have any record of in our office notes, that was the last followup. At that time, she was having a seizure once a month, which is what she seems to be having at this point. MEDICATIONS: Include: 1. Aptiom 800 mg twice a day. 2. Briviact 1 in the morning and 1-1/2 at bedtime. 3. Clonazepam 1 tab twice a day in the past, but not currently. 4. Sertraline 50 mg. 5. Pyridoxine 50 mg. 6. Levothyroxine 75 mcg a day. 7. She is also on Meclizine 25 mg b.i.d. as needed. Of note, the medications that were listed in the ER were different than what is in the chart in terms of the Aptiom and Briviact dose. ALLERGIES: Include BEE VENOM, KEFLEX, MORPHINE, MUSHROOMS, SULFA, ENVIRONMENTAL. She is also allergic to LACOSAMIDE AND ZONISAMIDE. PHYSICAL EXAM: Temperature 98, pulse 87, respirations 17, blood pressure 138/ 70. She is alert and oriented with normal speech and comprehension. Cranial nerves II through XII were intact. Motor exam reveals normal tone, strength, coordination, finger to nose. Sensation is intact to light touch. Reflexes are 2 and equal, downgoing toes. Chest: Clear. Cardiovascular: Regular rate and rhythm. Abdomen: Soft with positive bowel sounds. DIAGNOSTIC STUDIES/LAB DATA: Her CT scan showed stable encephalomalacia of the right cerebral hemisphere . Labs include normal CBC other than hematocrit of 33. Sodium of 131, magnesium 1.7, calcium 8.4. She is status post AV malformation resection surgery. IMPRESSION: Belinda had a presumed seizure at night. Her seizure control has been better in the past year or 2 and I have discussed her case with Dr. Ortega, who agrees that no further changes in medicine need to be done acutely. She is due for an appointment and our office will be contacting her to make the appointment. I have tried to reach her by phone, but she was not available. I am going to have the office contact her and confirm her medication dose to adjust any discrepancy. Thank you for sharing her case. [id number]/[facility] #: [id number] BREA
== END | disposition home or self-care (01) ==
LOC: ED 03:29
DX: R55 Syncope and collapse (principal); R51 Headache; R30.0 Dysuria; R42 Dizziness and giddiness; Z87.891 Personal history of nicotine dependence
CPT/HCPCS: 36415; 70450; 71046; 80048; 83735; 84484; 85025; 93005; 96374; 99282; A9270-GY; J2405

== ENCOUNTER 2019-12-10 11:35 | Emergency (ER) | payer OTHER ==
[2019-12-10 12:06] VITALS: BP 117/75
--- NOTE | 2019-12-10 12:17 | UC ---
General HPI - HPI Summary HPI Summary: States about 1.5 hours ago she was trying to get a speaker down from the closet and it landed on her right shoulder. Her Dad said she should get it checked out. States she has taken tylenol and ibuprofen. No injuries to her shoulder in the past. No numbness or tingling. States it is very sore. - History of Current Complaint Chief Complaint: UCUpperExtremity Stated Complaint: SHOULDER INJURY Time Seen by Provider: 12/10/19 11:59 Hx Last Menstrual Period: hysterectomy Pain Intensity: 10 - Allergy/Home Medications Allergies/Adverse Reactions: Allergies Allergy/AdvReac Type Severity Reaction Status Date / Time bee venom protein (honey bee) Allergy Hives Verified 12/10/19 11:56 cephalexin [From Keflex] Allergy Hives Verified 12/10/19 11:56 morphine Allergy Hives Verified 12/10/19 11:56 mushroom Allergy Hives Verified 12/10/19 11:56 Sulfa (Sulfonamide Allergy Rash Verified 12/10/19 11:56 Antibiotics) enviromental Allergy Eyes Uncoded 12/10/19 11:56 Itchy/Swollen/Red/Watery Home Medications: Home Medications Acetaminophen [Acetaminophen Extra Strength] 500 mg PO ONCE 12/10/19 [History Confirmed 12/10/19] PMH/Surg Hx/FS Hx/Imm Hx Neurological History: Seizures Other History Of: Negative For: Anticoagulant Therapy - Surgical History Surgical History: Yes Surgery Procedure, Year, and Place: AVM REPAIR (CLIPPED, THEN CLIP WAS REMOVED - SEE REPORTS). RT TEMPORAL LOBE IN 2008 [place] (removed scar tissue). 5 CSECTIONS. VNM simulater.07/2017 - Family History Known Family History: Positive: Cardiac Disease, Hypertension, Other - cancer; denies AVM in the family Negative: Diabetes - Social History Alcohol Use: None Substance Use Type: None Substance Use Comment - Amount & Last Used: occassional Smoking Status (MU): Former Smoker Have You Smoked in the Last Year: No Household Exposure Type: Cigarettes - Immunization History Most Recent Influenza Vaccination: 2016 Most Recent Tetanus Shot: 2015 Most Recent Pneumonia Vaccination: UNSURE Review of Systems All Other Systems Reviewed And Are Negative: Yes Musculoskeletal: Positive: Decreased ROM Physical Exam Triage Information Reviewed: Yes Appearance: Well-Appearing, Thin Vital Signs: Initial Vital Signs Temp 98.3 F 12/10/19 12:00 Pulse 77 12/10/19 12:00 Resp 18 12/10/19 12:00 BP 117/75 12/10/19 12:00 Pulse Ox 100 12/10/19 12:00 Neck: Positive: Supple Musculoskeletal: Positive: Other: - right shoulder - FROM, flexion and extension , abduction and adduction without issues. No deformity or stepoff from clavicle or in shoulder joint. No swelling or ecchymosis. Course/Dx - Course Course Of Treatment: Patient just had a large speaker fall on the her right shoulder about 1.5 hours ago FROM, no clavicular step off Suspect shoulder contusion Plan Suspect you have a shoulder contusion/bruise from the injury Recommend scheduled tylenol and ibuprofen as needed for pain. Take with food Recommend icing the area for the first day then alternating with heat and ice. If symptoms persist or worsen, recommend follow up with your PCP or return to urgent care - Diagnoses Provider Diagnosis: Shoulder contusion Discharge ED - Sign-Out/Discharge Documenting (check all that apply): Patient Departure All imaging exams completed and their final reports reviewed: No Studies - Discharge Plan Condition: Good Disposition: HOME Patient Education Materials: Shoulder Sprain (ED) Referrals: Madhavi Mayorga MD [Primary Care Provider] - Additional Instructions: Suspect you have a shoulder contusion/bruise from the injury Recommend scheduled tylenol and ibuprofen as needed for pain. Take with food Recommend icing the area for the first day then alternating with heat and ice. If symptoms persist or worsen, recommend follow up with your PCP or return to urgent care - Billing Disposition and Condition Condition: GOOD Disposition: Home
== END 2019-12-10 12:18 | disposition home or self-care (01) ==
LOC: UCEAST 11:35
DX: S40.011A Contusion of right shoulder, initial encounter (principal); Z91.030 Bee allergy status; Z88.1 Allergy status to other antibiotic agents; Z88.5 Allergy status to narcotic agent; Z91.018 Allergy to other foods; Z88.2 Allergy status to sulfonamides; Z91.09 Other allergy status, other than to drugs and biological substances; Z87.891 Personal history of nicotine dependence; W20.8XXA Other cause of strike by thrown, projected or falling object, initial encounter; Y92.9 Unspecified place or not applicable
CPT/HCPCS: 99211; G0463

== ENCOUNTER 2019-12-21 10:23 | Emergency (ER) | payer OTHER ==
--- NOTE | 2019-12-21 10:31 | ED ---
Neurological HPI - HPI Summary HPI Summary: 39 y/o female presented to [facility] by [facility] after a seizure earlier today that lasted less than a minute, as well as two yesterday. According to EMS , the patient was alert at the scene with left sided weakness, which is her baseline. Vitals were normal at the scene and she was not given medications by EMS. Patient denies signs of infection such as cough, rhinorrhea, fever, dysuria , or burning during urination. She notes that she is going to see Dr. Coles in [place] for a sEEG and that she sees Dr. Ortega in [place]. She states that her seizures occur in the occipital region of her brain and that she uses a vagus nerve magnet that she does not believe has helped her. She takes 800mg Aptiom BID and 2 750mg Keppra BID. - History of Current Complaint Stated Complaint: SEIZURE PER EMS Time Seen by Provider: 12/21/19 10:28 Hx Obtained From: Patient, EMS Hx Last Menstrual Period: hysterectomy Onset/Duration: Resolved Timing: Intermittent Episodes Lasting: - less than a minute Current Severity: None Pain Intensity: 0 Pain Scale Used: 0-10 Numeric Number of Episodes: 3 - 2 yesterday, 1 today Aggravating: Nothing Alleviating: Nothing Associated Signs and Symptoms: Positive: Weakness - left side (normal), Seizure. Negative: Fever Related Hx: Seizure - Additional Pertinent History Primary Care Physician: [id number] - Allergy/Home Medications Allergies/Adverse Reactions: Allergies Allergy/AdvReac Type Severity Reaction Status Date / Time bee venom protein (honey bee) Allergy Hives Verified 12/21/19 10:34 cephalexin [From Keflex] Allergy Hives Verified 12/21/19 10:34 morphine Allergy Hives Verified 12/21/19 10:34 mushroom Allergy Hives Verified 12/21/19 10:34 Sulfa (Sulfonamide Allergy Rash Verified 12/21/19 10:34 Antibiotics) enviromental Allergy Eyes Uncoded 12/10/19 11:56 Itchy/Swollen/Red/Watery PMH/Surg Hx/FS Hx/Imm Hx Endocrine/Hematology History: Reports: Hx Thyroid Disease, Hx Anemia - IV iron tx Denies: Hx Anticoagulant Therapy, Hx Diabetes Cardiovascular History: Denies: Hx Congestive Heart Failure, Hx Hypertension, Hx Pacemaker/ICD Comment Only: Other Cardiovascular Problems/Disorders - Arteriovenous malformation - Sx repair in 2008. Right atrial enlargement. 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 RT TEMPORAL LOBE IN 2008 [place] (removed scar tissue). 5 CSECTIONS. VNM simulater.07/2017 Hx Anesthesia Reactions: No - Immunization History Date of Tetanus Vaccine: unk Date of Influenza Vaccine: fall 2018 Infectious Disease History: No Infectious Disease History: Denies: Hx Hepatitis, Hx Human Immunodeficiency Virus (HIV), Traveled Outside the [place] in Last 30 Days - Family History Known Family History: Positive: Cardiac Disease, Hypertension, Other - cancer; denies AVM in the family Negative: Diabetes - Social History Alcohol Use: None Hx Substance Use: Yes Substance Use Type: Reports: None Substance Use Comment - Amount & Last Used: occassional Hx Tobacco Use: Yes Smoking Status (MU): Former Smoker Have You Smoked in the Last Year: No Review of Systems Negative: Fever Negative: Nasal Discharge Negative: Cough Negative: burning, dysuria Neurological: Other - seizure All Other Systems Reviewed And Are Negative: Yes Physical Exam - Summary Physical Exam Summary: VITAL SIGNS: Reviewed. GENERAL: Patient is a well-developed and nourished female who is lying comfortable in the stretcher. Patient is not in any acute respiratory distress. HEAD AND FACE: No signs of trauma. No ecchymosis, hematomas or skull depressions. No sinus tenderness. EYES: PERRLA, EOMI x 2, No injected conjunctiva, no nystagmus. EARS: Hearing grossly intact. Ear canals and tympanic membranes are within normal limits. MOUTH: Oropharynx within normal limits. NECK: Supple, trachea is midline, no adenopathy, no JVD, no carotid bruit, no c- spine tenderness, neck with full ROM. CHEST: Symmetric, no tenderness at palpation. LUNGS: Clear to auscultation bilaterally. No wheezing or crackles. CVS: Regular rate and rhythm, S1 and S2 present, no murmurs or gallops appreciated. ABDOMEN: Soft, non-tender. No signs of distention. No rebound, no guarding, and no masses palpated. Bowel sounds are normal. EXTREMITIES: FROM in all major joints, no edema, no cyanosis or clubbing. NEURO: Alert and oriented x 3. No acute neurological deficits. Speech is normal and follows commands. SKIN: Dry and warm. Triage Information Reviewed: Yes Vital Signs On Initial Exam: Initial Vitals Temp Pulse Resp BP Pulse Ox 98.3 F 85 20 119/86 100 12/21/19 10:25 12/21/19 10:25 12/21/19 10:25 12/21/19 10:25 12/21/19 10:25 Vital Signs Reviewed: Yes Procedures - Sedation Patient Received Moderate/Deep Sedation with Procedure: No Diagnostics - Vital Signs Vital Signs Temp Pulse Resp BP Pulse Ox 12/21/19 10:25 98.3 F 85 20 119/86 100 - Laboratory Result Diagrams: 12/21/19 10:38 12/21/19 10:38 Lab Statement: Any lab studies that have been ordered have been reviewed, and results considered in the medical decision making process. - EKG 1118 Cardiac Rate: NL EKG Rhythm: Sinus Rhythm Summary of EKG Findings: Normal sinus rhythm at 81bpm. No ST elevation. Normal axis. No STEMI. This EKG was reviewed and interpreted by the ED physician. Course/Dx - Course Assessment/Plan: 39 y/o female presented to [facility] by [facility] after a seizure earlier today that lasted less than a minute, as well as two yesterday. According to EMS, the patient was alert at the scene with left sided weakness, which is her baseline. Vitals were normal at the scene and she was not given medications by EMS. Patient denies signs of infection such as cough, rhinorrhea , fever, dysuria, or burning during urination. She notes that she is going to see Dr. Coles in [place] for a sEEG and that she sees Dr. Ortega in [place]. She states that her seizures occur in the occipital region of her brain and that she uses a vagus nerve magnet that she does not believe has helped her. She takes 800mg Aptiom BID and 2 750mg Keppra BID. In the ED course the patient was placed in a director of cardiac rehabilitation, IV access was obtained, IV fluids started. Seizure precautions were started. Blood test w/o a significant abnormality except for sodium 133, total protein 6.3. I discussed the case with Dr. Henderson from and neurology and he recommends one dose of Keppra 500 mg and discharge the patient home with follow-up with Dr. Ortega on Sunday. At this point, I discussed all the findings and test results with the patient. Patient was instructed to return to the emergency room immediately if any of the symptoms return or worsen.Plan of care was discussed with the patient and patient understands and agrees. All questions were answered at patient satisfaction. Patient understands and agrees. Neurological exam before discharge: Patient is alert and oriented x 3. No acute neurological deficits. Patient's vital signs are stable. Patient is to follow up with CPP in the next 2 3 days. They understand and agree. The plan of care was discussed with the patient and patient understands and agrees with the plan of care. All questions were answered at patient satisfaction. There were no further complaints or concerns. - Differential Dx Differential Diagnoses Neuro: Positive: Seizure Disorder - Diagnoses Provider Diagnoses: Seizure - Physician Notifications Discussed Care Of Patient With: Ezequiel Henderson Time Discussed With Above Provider: 11:26 Instructed by Provider To: Other - Patient's case was discussed with Dr. Henderson , who recommends giving an additional 500mg Keppra, and that the patient follow up with Dr. Ortega tomorrow. Discharge ED - Sign-Out/Discharge Documenting (check all that apply): Patient Departure - dc - Discharge Plan Condition: Stable Disposition: HOME Patient Education Materials: Epilepsy (ED) Referrals: Madhavi Mayorga MD [Primary Care Provider] - Yoni Ortega MD [Medical Doctor] - Additional Instructions: FOLLOW UP WITH DR. ORTEGA WITHIN ONE DAY. RETURN TO THE ED FOR ANY WORSENING OR NEW SYMPTOMS. - Billing Disposition and Condition Condition: STABLE Disposition: Home - Attestation Statements Document Initiated by Scribe: Yes Documenting Scribe: Adolfo Lenz Provider For Whom Scribe is Documenting (Include Credential): Gumaro Lee MD Scribe Attestation: IAdolfo, scribed for Gumaro Lee MD on 12/22/19 at 1334. Scribe Documentation Reviewed: Yes Provider Attestation: The documentation as recorded by the Adolfo weller accurately reflects the service I personally performed and the decisions made by me, Gumaro Lee MD Status of Scribe Document: Viewed
[2019-12-21 10:47] LABS: ABS Basophils 0.1 10^3/ul (0-0.2); ABS Eosinophils 0.1 10^3/ul (0-0.6); ABS Monocytes 0.4 10^3/ul (0-0.8); ABS Neutrophils 1.3 10^3/ul (1.5-7.7); Eosinophil % 2.5 %; Hematocrit 38 % (35-47); Hemoglobin 13.2 g/dL (12.0-16.0); Lymphocyte % 51.5 %; Mean Corpuscular HGB Conc 35 g/dL (31-36); Mean Corpuscular Hemoglobin 29 pg (27-31); Mean Corpuscular Volume 85 fL (80-97); Mean Platelet Volume 6.6 fL (7.4-10.4); Nucleated Red Blood Cells % 0.1; Platelet Count 284 10^3/uL (150-450); Red Cell Distribution Width 14 % (10-15); White Blood Count 3.8 10^3/uL (3.5-10.8)
[2019-12-21 11:02] LABS: ALT 8 U/L (7-52); AST 16 U/L (13-39); Albumin 4.3 g/dL (3.2-5.2); Albumin/Globulin Ratio 2.2 (1-3); Alkaline Phosphatase 53 U/L (34-104); Anion Gap 7 mmol/L (2-11); BUN/Creatinine Ratio 8.1 (8-20); Blood Urea Nitrogen 5 mg/dL (6-24); CO2 Carbon Dioxide 24 mmol/L (22-32); Calcium 9.3 mg/dL (8.6-10.3); Chloride 102 mmol/L (101-111); EGFR African American 130.3 (>60); EGFR Non-African American 107.7 (>60); Glucose 76 mg/dL (70-100); Potassium 3.6 mmol/L (3.5-5.0); Sodium 133 mmol/L (135-145); Total Protein 6.3 g/dL (6.4-8.9)
[2019-12-21] MEDS ORDERED: Ondansetron INJ* 2 MG/ML VIAL IV ONE (11:10)
[2019-12-21 11:21] LABS: INR 1.02 (0.82-1.09)
[2019-12-21 11:22] LABS: Alcohol < 10 mg/dL (<10)
[2019-12-21] MEDS ORDERED: levETIRAcetam TAB* 500 MG PO ONE (11:27)
[2019-12-21 11:38] LABS: TSH (Thyroid Stimulating Horm) 0.42 mcIU/mL (0.34-5.60)
[2019-12-21 12:36] VITALS: BP 118/83
== END 2019-12-21 12:58 | disposition home or self-care (01) ==
LOC: ED 10:23
DX: G40.909 Epilepsy, unspecified, not intractable, without status epilepticus (principal); R53.1 Weakness; E07.9 Disorder of thyroid, unspecified; F32.9 Major depressive disorder, single episode, unspecified; Z79.899 Other long term (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; Z88.1 Allergy status to other antibiotic agents; Z91.030 Bee allergy status; Z88.5 Allergy status to narcotic agent; Z88.2 Allergy status to sulfonamides; Z91.018 Allergy to other foods; Z91.09 Other allergy status, other than to drugs and biological substances; Z87.891 Personal history of nicotine dependence
CPT/HCPCS: 36415; 80053; 80177; 80183; 80320; 83735; 84443; 85025; 85610; 93005; 96360; 96374; 99283; A9270-GY; G0480; J2405

== ENCOUNTER 2019-12-31 00:24 | Emergency (ER) | payer OTHER ==
--- NOTE | 2019-12-31 00:40 | ED ---
Complex/Multi-Sys Presentation - HPI Summary HPI Summary: 39 year old M presenting to [facility] accompanied by EMS complains of two seizures today. The first was at home where it was witnessed by the patient's mother and the second was in the ambulance. She was not aware of how long the episodes were and states the VNS magnet did not work. Patient reports she is on Keppra 750 mg 2 in the morning and 2 at night. Patient denies flu-like symptoms except an intermittent sore throat. The patient rates the pain 3/10 in severity. Symptoms aggravated by nothing. Symptoms alleviated by nothing. - History Of Current Complaint Time Seen by Provider: 12/31/19 00:29 Hx Obtained From: Patient Onset/Duration: Sudden Onset - two seizures Aggravating Factor(s): nothing Alleviating Factor(s): nothing Associated Signs And Symptoms: Positive: Other - 2 seizures and intermittent sore throat - Allergies/Home Medications Allergies/Adverse Reactions: Allergies Allergy/AdvReac Type Severity Reaction Status Date / Time bee venom protein (honey bee) Allergy Hives Verified 12/31/19 00:48 cephalexin [From Keflex] Allergy Hives Verified 12/31/19 00:48 morphine Allergy Hives Verified 12/31/19 00:48 mushroom Allergy Hives Verified 12/31/19 00:48 Sulfa (Sulfonamide Allergy Rash Verified 12/31/19 00:48 Antibiotics) enviromental Allergy Eyes Uncoded 12/10/19 11:56 Itchy/Swollen/Red/Watery PMH/Surg Hx/FS Hx/Imm Hx Endocrine/Hematology History: Reports: Hx Thyroid Disease, Hx Anemia - IV iron tx Denies: Hx Anticoagulant Therapy, Hx Diabetes Cardiovascular History: Denies: Hx Congestive Heart Failure, Hx Hypertension, Hx Pacemaker/ICD Comment Only: Other Cardiovascular Problems/Disorders - Arteriovenous malformation - Sx repair in 2008. Right atrial enlargement. 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 RT TEMPORAL LOBE IN 2008 [place] (removed scar tissue). 5 CSECTIONS. VNM simulater.07/2017 Hx Anesthesia Reactions: No - Immunization History Date of Tetanus Vaccine: unk Date of Influenza Vaccine: fall 2018 Infectious Disease History: Denies: Hx Hepatitis, Hx Human Immunodeficiency Virus (HIV), Traveled Outside the [place] in Last 30 Days - Family History Known Family History: Positive: Cardiac Disease, Hypertension, Other - cancer; denies AVM in the family Negative: Diabetes - Social History Alcohol Use: None Hx Substance Use: Yes Substance Use Type: Reports: None Substance Use Comment - Amount & Last Used: occassional Hx Tobacco Use: Yes Smoking Status (MU): Former Smoker Have You Smoked in the Last Year: No Review of Systems Positive: Sore Throat - intermittent Neurological/Mental Status: Other - 2 seizures All Other Systems Reviewed And Are Negative: Yes Physical Exam - Summary Physical Exam Summary: VITAL SIGNS: Reviewed. GENERAL: Patient is a well-developed and nourished female who is lying comfortable in the stretcher. Patient is not in any acute respiratory distress. HEAD AND FACE: No signs of trauma. No ecchymosis, hematomas or skull depressions. No sinus tenderness. EYES: PERRLA, EOMI x 2, No injected conjunctiva, no nystagmus. EARS: Hearing grossly intact. Ear canals and tympanic membranes are within normal limits. MOUTH: Oropharynx within normal limits. NECK: Supple, trachea is midline, no adenopathy, no JVD, no carotid bruit, no c- spine tenderness, neck with full ROM. CHEST: Symmetric, no tenderness at palpation. LUNGS: Clear to auscultation bilaterally. No wheezing or crackles. CVS: Regular rate and rhythm, S1 and S2 present, no murmurs or gallops appreciated. ABDOMEN: Soft, non-tender. No signs of distention. No rebound, no guarding, and no masses palpated. Bowel sounds are normal. EXTREMITIES: FROM in all major joints, no edema, no cyanosis or clubbing. NEURO: Alert and oriented x 3. No acute neurological deficits. Speech is normal and follows commands. SKIN: Dry and warm. Triage Information Reviewed: Yes Vital Signs Reviewed: Yes Procedures - Sedation Patient Received Moderate/Deep Sedation with Procedure: No Diagnostics - Laboratory Result Diagrams: 12/31/19 00:43 12/31/19 00:43 Lab Statement: Any lab studies that have been ordered have been reviewed, and results considered in the medical decision making process. - Radiology CXR Radiology Interpretation Completed By: ED Physician Summary of Radiographic Findings: Impression: normal. No acute process. Pending official report. - EKG 0106 Cardiac Rate: NL EKG Rhythm: Sinus Rhythm Summary of EKG Findings: EKG at 0106 reveals sinus rhythm at [address] elevations and normal axis. This EKG has been reviewed and interpreted by . Complex Multi-Symp Course/Dx Assessment/Plan: 39 year old M presenting to [facility] accompanied by EMS complains of two seizures today. The first was at home where it was witnessed by the patient's mother and the second was in the ambulance. She was not aware of how long the episodes were and states the VNS magnet did not work. Patient reports she is on Keppra 750 mg 2 in the morning and 2 at night. Patient denies flu- like symptoms except an intermittent sore throat. The patient rates the pain 3/ 10 in severity. Symptoms aggravated by nothing. Symptoms alleviated by nothing. In the ED course the patient was placed in a court recording monitor, IV access was obtained, IV fluids started. Zofran was given as well. Blood test w/o a significant abnormality except for MPV 7.0, Sodium 132, Potassium 2.9, Chloride 99, Carbon Dioxide 17, Anion Gap 16, Glucose 129, Lactic Acid 8.9. Patient was given potassium chloride for the hypokalemia. EKG at 0106 reveals sinus rhythm at [address] elevations and normal axis. Chest x-ray revealed no acute process. I discussed my physical exam and findings with Dr. Ortega and he recommends no change at this point and patient should be discharged home with follow-ups with him and Dr. Coles. At this point, I discussed all the findings and test results with the patient. Patient was instructed to return to the emergency room immediately if any of the symptoms return or worsen. Plan of care was discussed with the patient and the patient understands and agrees. All questions were answered at patient satisfaction. Patient understands and agrees. Neurological exam before discharge: Patient is alert and oriented x 3. No acute neurological deficits. Patient's vital signs are stable. Patient is to follow up with PCP in the next 2 3 days. They understand and agree. The plan of care was discussed with the patient and the patient understands and agrees with the plan of care. All questions were answered at patient satisfaction. There were no further complaints or concerns. - Diagnoses Provider Diagnoses: Seizure - Physician Notifications Discussed Care Of Patient With: Yoni Ortega - Don't change medications. Discharge patients and have her follow up with him and . Time Discussed With Above Provider: 04:00 Discharge ED - Sign-Out/Discharge Documenting (check all that apply): Patient Departure - discharge - Discharge Plan Condition: Stable Disposition: HOME Patient Education Materials: Recurrent Seizures in Adults (ED) Referrals: Madhavi Mayorga MD [Primary Care Provider] - 3 Days Additional Instructions: FOLLOW UP WITH YOUR PRIMARY CARE PROVIDER IN 2-3 DAYS. RETURN TO THE ED FOR ANY WORSENING OR NEW SYMPTOMS. - Billing Disposition and Condition Condition: STABLE Disposition: Home - Attestation Statements Document Initiated by Scribe: Yes Documenting Scribe: Keny Brooks Provider For Whom Elle is Documenting (Include Credential): Dr.Walter Jesus MD Scribe Attestation: Keny Bolton scribed for Dr.Walter Jesus MD on 01/01/20 at 2041. Scribe Documentation Reviewed: Yes Provider Attestation: The documentation as recorded by the Keny weller accurately reflects the service I personally performed and the decisions made by me, Dr.Walter Jesus MD Status of Scribtyler Document: Viewed
[2019-12-31] MEDS ORDERED: Ondansetron ODT TAB* 4 MG SL PRN (01:01)
[2019-12-31 01:10] LABS: ABS Eosinophils 0.2 10^3/ul (0-0.6); ABS Lymphocytes 3.7 10^3/ul (1.0-4.8); ABS Monocytes 0.5 10^3/ul (0-0.8); ABS Neutrophils 2.1 10^3/ul (1.5-7.7); Eosinophil % 3.1 %; Hematocrit 36 % (35-47); Hemoglobin 12.5 g/dL (12.0-16.0); Lymphocyte % 56.3 %; Mean Corpuscular HGB Conc 35 g/dL (31-36); Mean Corpuscular Hemoglobin 29 pg (27-31); Mean Corpuscular Volume 85 fL (80-97); Platelet Count 285 10^3/uL (150-450); Red Blood Count 4.25 10^6 /uL (3.70-4.87); Red Cell Distribution Width 14 % (10-15); White Blood Count 6.5 10^3/uL (3.5-10.8)
[2019-12-31 01:24] LABS: ALT 13 U/L (7-52); AST 18 U/L (13-39); Albumin 4.5 g/dL (3.2-5.2); Alkaline Phosphatase 60 U/L (34-104); Anion Gap 16 mmol/L (2-11); BUN/Creatinine Ratio 8.6 (8-20); Blood Urea Nitrogen 6 mg/dL (6-24); CO2 Carbon Dioxide 17 mmol/L (22-32); Calcium 9.2 mg/dL (8.6-10.3); Chloride 99 mmol/L (101-111); Creatine Kinase 79 U/L (10-223); EGFR African American 113.3 (>60); EGFR Non-African American 93.6 (>60); Globulin 2.2 g/dL (2-4); Glucose 129 mg/dL (70-100); Magnesium 2.2 mg/dL (1.9-2.7); Potassium 2.9 mmol/L (3.5-5.0); Sodium 132 mmol/L (135-145); Total Protein 6.7 g/dL (6.4-8.9)
[2019-12-31 01:26] LABS: INR 0.99 (0.82-1.09)
[2019-12-31 01:28] LABS: Alcohol < 10 mg/dL (<10)
[2019-12-31] MEDS ORDERED: Potassium Chlor TAB* 20 MEQ TAB.ER PO ONE (01:53)
[2019-12-31] MEDS ORDERED: NS 0.9% 1000 ML** 1,000 ML IV ONE (02:13)
[2019-12-31 03:18] LABS: Urine Appearance Cloudy; Urine Bilirubin Negative (Negative); Urine Blood Negative (Negative); Urine Color Yellow; Urine Glucose Negative (Negative); Urine Ketones Negative (Negative); Urine Nitrite Negative (Negative); Urine Protein Negative (Negative); Urine Specific Gravity 1.015 (1.010-1.030); Urine Urobilinogen Negative (Negative)
[2019-12-31 04:40] VITALS: BP 122/68
== END 2019-12-31 04:38 | disposition home or self-care (01) ==
LOC: ED 00:24
DX: R56.9 Unspecified convulsions (principal); E07.9 Disorder of thyroid, unspecified; D64.9 Anemia, unspecified; F32.9 Major depressive disorder, single episode, unspecified; Z87.891 Personal history of nicotine dependence; Z88.1 Allergy status to other antibiotic agents; Z88.2 Allergy status to sulfonamides; Z88.5 Allergy status to narcotic agent
CPT/HCPCS: 36415; 71045; 80053; 80177; 80320; 81003; 82550; 83605; 83735; 85025; 85610; 93005; 99284; A9270-GY; G0480

== ENCOUNTER 2020-01-14 22:08 | Emergency (ER) | payer OTHER ==
[2020-01-14] MEDS ORDERED: Lorazepam PYXIS KEY PRN ×2 (22:44→22:52)
[2020-01-14] MEDS ORDERED: LORazepam INJ* 2 MG/ML 1 ML VIAL IM ONE (22:44)
[2020-01-14] MEDS ORDERED: Ondansetron ODT TAB* 4 MG PO ONE (22:48)
[2020-01-14] MEDS ORDERED: LORazepam INJ* 2 MG/ML 1 ML VIAL IV ONE (22:52)
[2020-01-14] MEDS ORDERED: Ondansetron INJ* 2 MG/ML VIAL IV ONE (22:52)
--- NOTE | 2020-01-14 22:53 | ED ---
Seizure - HPI Summary HPI Summary: Patient with history of epilepsy and recurrent seizures complains of 5 seizures today. Patient states she has been having one to 2 seizures a day for the past 2 weeks which is more than normal. Patient takes Keppra and aptium for seizures. Followed by Dr. Ortega neurology here and Dr. Coles in [place]. Patient denies any other symptoms, pain or injury. EMS states that he witnessed one grand mal lasting about 30 seconds. Has been seen here on 12/21, for similar symptoms. Has MRI scheduled tomorrow in [place] with Dr. Coles. Denies EtOH or recreational drug use. - History Of Current Complaint Chief Complaint: EDSeizure Time Seen by Provider: 01/14/20 22:38 Hx Obtained From: Patient Onset/Duration: Sudden Onset Severity Of Seizure: Self-Limited Aggravating Factor(s): Nothing Alleviating Factor(s): Spontaneous Resolution Associated Signs And Symptoms: Negative - Allergies/Home Medications Allergies/Adverse Reactions: Allergies Allergy/AdvReac Type Severity Reaction Status Date / Time bee venom protein (honey bee) Allergy Hives Verified 01/14/20 22:13 cephalexin [From Keflex] Allergy Hives Verified 01/14/20 22:13 morphine Allergy Hives Verified 01/14/20 22:13 mushroom Allergy Hives Verified 01/14/20 22:13 Sulfa (Sulfonamide Allergy Rash Verified 01/14/20 22:13 Antibiotics) enviromental Allergy Eyes Uncoded 01/14/20 22:13 Itchy/Swollen/Red/Watery Home Medications: Home Medications Potassium Chlor TAB* [Klor Con ER TAB 10 MEQ*] 10 meq PO DAILY 04/29/17 [ History Confirmed 01/14/20] Ferrous Sulfate TAB* 325 mg PO DAILY 03/28/18 [History Confirmed 01/14/20] Levothyroxine TAB* [Synthroid TAB*] 75 mcg PO DAILY 03/28/18 [History Confirmed 01/14/20] Magnesium Oxide TAB* [MagOx 400 TAB*] 400 mg PO DAILY 03/28/18 [History Confirmed 01/14/20] Cholecalciferol TAB* [Vitamin D TAB*] 2,000 units PO DAILY 12/09/18 [History Confirmed 01/14/20] Eslicarbazepine Acetate (NF) [Aptiom] 800 mg PO BID 06/22/19 [History Confirmed 01/14/20] Sertraline* [Zoloft*] 50 mg PO DAILY 06/22/19 [History Confirmed 01/14/20] Ibuprofen TAB* [Advil TAB*] 200 mg PO Q6H PRN 09/01/19 [History Confirmed ] Ascorbic Acid TAB* [Vitamin C TAB*] 500 mg PO DAILY 09/11/19 [History Confirmed 01/14/20] Cyanocobalamin (Vitamin B-12) [Vitamin B-12] 1,000 mcg SL DAILY 09/11/19 [ History Confirmed 01/14/20] Lactose-Reduced Food [Boost High Protein] 237 ml PO TID 09/11/19 [History Confirmed 01/14/20] Meclizine TAB* [Antivert 12.5 TAB*] 25 mg PO BID PRN 09/11/19 [History Confirmed 01/14/20] Ondansetron TAB* [Zofran 4 MG Tab*] 8 mg PO Q8HR PRN 09/11/19 [History Confirmed 01/14/20] diPHENhydraMINE PO* [Benadryl PO 25 MG TAB*] 50 mg PO TID PRN 09/11/19 [History Confirmed 01/14/20] levETIRAcetam [Levetiracetam] 750 mg PO DAILY 12/02/19 [History Confirmed ] Acetaminophen [Acetaminophen Extra Strength] 500 mg PO ONCE 12/10/19 [History Confirmed 01/14/20] PMH/Surg Hx/FS Hx/Imm Hx Endocrine/Hematology History: Reports: Hx Thyroid Disease, Hx Anemia - IV iron tx Denies: Hx Anticoagulant Therapy, Hx Diabetes Cardiovascular History: Denies: Hx Congestive Heart Failure, Hx Hypertension, Hx Pacemaker/ICD Comment Only: Other Cardiovascular Problems/Disorders - Arteriovenous malformation - Sx repair in 2008. Right atrial enlargement. 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 RT TEMPORAL LOBE IN 2008 [place] (removed scar tissue). 5 CSECTIONS. VNM simulater.07/2017 Hx Anesthesia Reactions: No - Immunization History Date of Tetanus Vaccine: unk Date of Influenza Vaccine: fall 2018 Infectious Disease History: No Infectious Disease History: Denies: Hx Hepatitis, Hx Human Immunodeficiency Virus (HIV), Traveled Outside the [place] in Last 30 Days - Family History Known Family History: Positive: Cardiac Disease, Hypertension, Other - cancer; denies AVM in the family Negative: Diabetes - Social History Alcohol Use: None Hx Substance Use: Yes Substance Use Type: Reports: None Substance Use Comment - Amount & Last Used: occassional Hx Tobacco Use: Yes Smoking Status (MU): Former Smoker Have You Smoked in the Last Year: No Review of Systems Constitutional: Negative Eyes: Negative ENT: Negative Cardiovascular: Negative Respiratory: Negative Gastrointestinal: Negative Genitourinary: Negative Musculoskeletal: Negative Skin: Negative Neurological/Mental Status: Negative Psychological: Normal All Other Systems Reviewed And Are Negative: Yes Physical Exam Triage Information Reviewed: Yes Vital Signs On Initial Exam: Initial Vitals Temp Pulse Resp BP Pulse Ox 97.4 F 103 16 124/88 97 01/14/20 22:08 01/14/20 22:08 01/14/20 22:08 01/14/20 22:08 01/14/20 22:08 Vital Signs Reviewed: Yes Appearance: Positive: Well-Appearing Skin: Positive: Warm Head/Face: Positive: Normal Head/Face Inspection Eyes: Positive: Normal Neck: Positive: Supple Respiratory/Lung Sounds: Positive: Clear to Auscultation Cardiovascular: Positive: Normal Abdomen Description: Positive: Nontender Musculoskeletal: Positive: Normal Neurological: Positive: Normal Psychiatric: Positive: Normal AVPU Assessment: Alert - Wolfgang Coma Scale Best Eye Response: 4 - Spontaneous Best Motor Response: 6 - Obeys Commands Best Verbal Response: 5 - Oriented Coma Scale Total: 15 Procedures - Sedation Patient Received Moderate/Deep Sedation with Procedure: No Diagnostics - Vital Signs Vital Signs Temp Pulse Resp BP Pulse Ox 02/26/20 22:14 114 96 01/14/20 22:12 111 124/88 96 01/14/20 22:08 97.4 F 103 16 124/88 97 - Laboratory Result Diagrams: 01/14/20 22:51 01/14/20 22:51 Lab Statement: Any lab studies that have been ordered have been reviewed, and results considered in the medical decision making process. Course/Dx - Course Course Of Treatment: Patient with history of epilepsy and recurrent seizures complains of 5 seizures today. Patient states she has been having one to 2 seizures a day for the past 2 weeks which is more than normal. Patient takes Keppra and aptium for seizures. Followed by Dr. Ortega neurology here and Dr. Coles in [place]. Patient denies any other symptoms, pain or injury. EMS states that he witnessed one grand mal lasting about 30 seconds. Has been seen here on 12/21, 12/31 for similar symptoms. Has MRI scheduled tomorrow in [place] with Dr. Coles. Denies EtOH or recreational drug use. Signs within normal limits. Labs unremarkable. Discussed patient with Dr. Henderson neurology who is very familiar with patient. Recommended no change in medication, and follow-up MRI appointment later. - Diagnoses Provider Diagnoses: Seizure, Low TSH level Discharge ED - Sign-Out/Discharge Documenting (check all that apply): Patient Departure - Discharge Plan Condition: Stable Disposition: HOME Patient Education Materials: Recurrent Seizures in Adults (ED) Referrals: Madhavi Mayorga MD [Primary Care Provider] - Additional Instructions: Continue taking your seizure medications as usual. Follow-up at your appointment for MRI tomorrow at [place]. Follow-up with neurologist Dr. Ortega and Dr. Coles for further evaluation. Return to the ED for any new or worsening symptoms. - Billing Disposition and Condition Condition: STABLE Disposition: Home
[2020-01-14 22:57] LABS: ABS Eosinophils 0.2 10^3/ul (0-0.6); ABS Lymphocytes 1.7 10^3/ul (1.0-4.8); ABS Monocytes 0.4 10^3/ul (0-0.8); ABS Neutrophils 2.8 10^3/ul (1.5-7.7); Eosinophil % 3.5 %; Hematocrit 36 % (35-47); Hemoglobin 12.4 g/dL (12.0-16.0); Mean Corpuscular HGB Conc 34 g/dL (31-36); Mean Corpuscular Hemoglobin 29 pg (27-31); Mean Corpuscular Volume 85 fL (80-97); Mean Platelet Volume 6.6 fL (7.4-10.4); Nucleated Red Blood Cells % 0.1; Platelet Count 268 10^3/uL (150-450); Red Blood Count 4.27 10^6 /uL (3.70-4.87); Red Cell Distribution Width 14 % (10-15); White Blood Count 5.2 10^3/uL (3.5-10.8)
[2020-01-14 23:26] LABS: ALT 7 U/L (7-52); AST 16 U/L (13-39); Albumin/Globulin Ratio 1.8 (1-3); Alkaline Phosphatase 65 U/L (34-104); Anion Gap 9 mmol/L (2-11); BUN/Creatinine Ratio 11.5 (8-20); Blood Urea Nitrogen 7 mg/dL (6-24); C Reactive Protein < 1.00 mg/L (<8.01); CO2 Carbon Dioxide 22 mmol/L (22-32); Calcium 9.2 mg/dL (8.6-10.3); Chloride 101 mmol/L (101-111); EGFR African American 132.8 (>60); EGFR Non-African American 109.8 (>60); Globulin 2.2 g/dL (2-4); Glucose 128 mg/dL (70-100); Potassium 3.9 mmol/L (3.5-5.0); Sodium 132 mmol/L (135-145); Total Protein 6.2 g/dL (6.4-8.9)
[2020-01-14 23:40] LABS: Urine Appearance Cloudy; Urine Bilirubin Negative (Negative); Urine Blood 2+ (Negative); Urine Color Yellow; Urine Glucose Negative (Negative); Urine Ketones Negative (Negative); Urine Nitrite Negative (Negative); Urine Protein Negative (Negative); Urine Specific Gravity 1.013 (1.010-1.030); Urine Urobilinogen Negative (Negative)
[2020-01-14 23:45] LABS: Urine Bacteria 1+ (Absent); Urine Red Blood Cell 1+(3-5/hpf) (Absent); Urine Squamous Epithelial Cell Present (Absent); Urine White Blood Cell Absent (Absent)
[2020-01-14 23:54] LABS: Alcohol < 10 mg/dL (<10)
[2020-01-14 23:55] LABS: Urine Benzodiazepine Screen None Detected (None Detect); Urine Opiates Screen None Detected (None Detect)
[2020-01-15 00:10] LABS: TSH (Thyroid Stimulating Horm) 0.17 mcIU/mL (0.34-5.60)
[2020-01-15 00:24] VITALS: BP 122/77
== END 2020-01-15 00:24 | disposition home or self-care (01) ==
LOC: ED 22:08
DX: R56.9 Unspecified convulsions (principal); E03.9 Hypothyroidism, unspecified; D64.9 Anemia, unspecified; F32.9 Major depressive disorder, single episode, unspecified; Z87.891 Personal history of nicotine dependence; Z79.890 Hormone replacement therapy; Z79.899 Other long term (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; Z88.1 Allergy status to other antibiotic agents; Z88.2 Allergy status to sulfonamides; Z88.5 Allergy status to narcotic agent
CPT/HCPCS: 36415; 80053; 80307; 80320; 81003; 81015; 84443; 85025; 86140; 87086; 93005; 96374; 96375; 99283; G0480; J2060; J2405

== ENCOUNTER 2020-01-30 13:18 | Emergency (ER) | payer OTHER ==
--- NOTE | 2020-01-30 13:35 | ED ---
Neurological HPI - HPI Summary HPI Summary: This pt is a 39 Y/O F presenting to [facility] with a CC of seizure-like activity today. She told EMS that she had a seizure today and remembers everything leading up to the seizure which included her typical auras. She states that she was on the couch when the episodes occurred. She was unable to provide a time frame for the seizure and states that she felt normal after the event. The seizure was unwitnessed. She states that she feels the same as the build-up and is afraid that shell have another seizure. She states that her epilepsy has been increasing in severity after she was given a new dose of keppra for the past week. She states that she has been sleeping well and denies any increased stress. She states that she has flank pain and reports that she has been having blood in her urine. Pt denies any fever, chills, erythema of eyes, sore throat, CP, SOB, cough, abdominal pain, N/V, dysuria, myalgia, edema, rash, or dizziness. She states that she has a CT, angiogram, and an MRI scheduled at [facility] within the next week. 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 She states that her aggravating and alleviating factors are unknown due to the recent increase in severity and occurrence of her seizures. She states a total of 5 seizures over the past week. - History of Current Complaint Chief Complaint: EDSeizure Stated Complaint: SEIZURES PER EMS Time Seen by Provider: 01/30/20 13:30 Last Known Well Date: States symptoms began last week Hx Obtained From: Patient, EMS Hx Last Menstrual Period: hysterectomy Onset/Duration: Sudden Onset, Started weeks ago, Still Present Timing: Intermittent Episodes Lasting: Current Severity: None Seizure Severity: Worse Since: - last week with change in her medication for Keppra Number of Seizures: 5 Pain Intensity: 0 Pain Scale Used: 0-10 Numeric Character: Other: Syncope Timing: unk Episode Lasting: Unknown Number of Episodes: 5 Syncope Context: Unwitnessed - states some were unwitnessed, Witnessed - some witnessed by her children (4 and 6 years old), At Rest - states last episode occured while she was lying on a couch Alleviating: Nothing Associated Signs and Symptoms: Positive: Negative - NEGATIVE:fever, chills, erythema of eyes, sore throat, cough, abdominal pain, dysuria, myalgia, edema, rash, or dizziness., Seizure - states multiple over the course of 1 week, Pain - flank pain, Change in Medication - Keppra increase. Negative: Nausea/Vomiting , Fever, Chest Pain, Shortness of Breath, Anxiety, Emotional Distress TPA Considered: No - seizure-like acitivity with a history of Epilepsy, negative for CVA Related Hx: Seizure - Additional Pertinent History Primary Care Physician: CORAL - Allergy/Home Medications Allergies/Adverse Reactions: Allergies Allergy/AdvReac Type Severity Reaction Status Date / Time bee venom protein (honey bee) Allergy Hives Verified 01/14/20 22:13 cephalexin [From Keflex] Allergy Hives Verified 01/14/20 22:13 morphine Allergy Hives Verified 01/14/20 22:13 mushroom Allergy Hives Verified 01/14/20 22:13 Sulfa (Sulfonamide Allergy Rash Verified 01/14/20 22:13 Antibiotics) enviromental Allergy Eyes Uncoded 01/14/20 22:13 Itchy/Swollen/Red/Watery Home Medications: Home Medications Potassium Chlor TAB* [Klor Con ER TAB 10 MEQ*] 10 meq PO DAILY 04/29/17 [ History Confirmed 01/30/20] Levothyroxine TAB* [Synthroid TAB*] 75 mcg PO DAILY 03/28/18 [History Confirmed 01/30/20] Magnesium Oxide TAB* [MagOx 400 TAB*] 400 mg PO DAILY 03/28/18 [History Confirmed 01/30/20] Eslicarbazepine Acetate (NF) [Aptiom] 800 mg PO BID 06/22/19 [History Confirmed 01/30/20] Sertraline* [Zoloft*] 100 mg PO DAILY 06/22/19 [History Confirmed 01/30/20] levETIRAcetam [Levetiracetam] 1,500 mg PO BID 12/02/19 [History Confirmed ] Pyridoxine TAB* [Vitamin B6 TAB*] 50 mg PO DAILY 01/30/20 [History Confirmed ] levETIRAcetam TAB* [Keppra TAB*] 500 mg PO QPM 01/30/20 [History Confirmed 01/29] PMH/Surg Hx/FS Hx/Imm Hx Previously Healthy: Yes Endocrine/Hematology History: Reports: Hx Thyroid Disease, Hx Anemia - IV iron tx Denies: Hx Anticoagulant Therapy, Hx Diabetes Cardiovascular History: Reports: Hx Hypotension Denies: Hx Congestive Heart Failure, Hx Hypertension, Hx Pacemaker/ICD Comment Only: Other Cardiovascular Problems/Disorders - Arteriovenous malformation - Sx repair in 2008. Right atrial enlargement. 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 RT TEMPORAL LOBE IN 2008 [place] (removed scar tissue). 5 CSECTIONS. VNM simulater.07/2017 Hx Anesthesia Reactions: No - Immunization History Date of Tetanus Vaccine: unk Date of Influenza Vaccine: fall 2018 Immunizations Up to Date: Yes Infectious Disease History: Denies: Hx Hepatitis, Hx Human Immunodeficiency Virus (HIV) - Family History Known Family History: Positive: Cardiac Disease, Hypertension, Other - cancer; denies AVM in the family Negative: Diabetes - Social History Occupation: Disabled Lives: With Family Alcohol Use: None Hx Substance Use: No Substance Use Type: Reports: None Substance Use Comment - Amount & Last Used: occassional Hx Tobacco Use: Yes Smoking Status (MU): Former Smoker Have You Smoked in the Last Year: No Review of Systems Negative: Fever, Chills Negative: Erythema Negative: Sore Throat Negative: Chest Pain Negative: Shortness Of Breath, Cough Negative: Vomiting, Nausea Positive: flank pain, hematuria. Negative: dysuria Negative: Myalgia, Edema Negative: Rash Neurological/Mental Status: Negative - dizziness, Other - POSITVE: increase in seizure-like activity Physical Exam - Summary Physical Exam Summary: Constitutional: Well-developed, Well-nourished, Alert. (-) Distressed Skin: Warm, Dry HENT: Normocephalic; Atraumatic Eyes: Conjunctiva normal Neck: Musculoskeletal ROM normal neck. (-) JVD, (-) Stridor, (-) Tracheal deviation Cardio: Rhythm regular, rate normal, Heart sounds normal; Intact distal pulses; The pedal pulses are 2+ and symmetric. Radial pulses are 2+ and symmetric. (-) Murmur Pulmonary/Chest wall: Effort normal. (-) Respiratory distress, (-) Wheezes, (-) Rales Abd: Soft. (-) Tenderness, (-) Distension, (-) Guarding, (-) Rebound Musculoskeletal: (-) Edema Lymph: (-) Cervical adenopathy Neuro: Alert, Oriented x3, Strength normal, Cranial nerves II-XII are grossly intact. (-) Dysmetria, (-) Nystagmus, (-) Ataxia by finger to nose testing, (-) Sensory deficit. Psych: Mood and affect Normal Triage Information Reviewed: Yes Vital Signs On Initial Exam: Temp Pulse Resp BP SpO2 FiO2 98.9 F 95 16 142/97 99 01/30/20 13:27 01/30/20 13:27 01/30/20 13:27 01/30/20 13:27 01/30/20 13:27 Vital Signs Reviewed: Yes Procedures - Sedation Patient Received Moderate/Deep Sedation with Procedure: No Diagnostics - Laboratory Result Diagrams: 01/30/20 13:48 01/30/20 13:48 Lab Statement: Any lab studies that have been ordered have been reviewed, and results considered in the medical decision making process. - EKG 1352 Cardiac Rate: NL - 85 BPM EKG Rhythm: Sinus Rhythm ST Segment: Normal Ectopy: None Summary of EKG Findings: EKG at 1352 shows Normal sinus rhythm at 85 bpm, normal VT, normal QRS, normal QTc, normal axis, normal ST, normal T-waves, normal EKG. Interpreted by Dr. Dean at 1407 01/30/2020. Course/Dx - Course Course Of Treatment: This pt is a 39 Y/O F presenting to [facility] with a CC of seizure-like activity today. She told EMS that she had a seizure today and remembers everything leading up to the seizure which included her typical auras. She states that she was on the couch when the episodes occurred. She was unable to provide a time frame for the seizure and states that she felt normal after the event. The seizure was unwitnessed. She states that she feels the same as the build-up and is afraid that shell have another seizure. She states that her epilepsy has been increasing in severity after she was given a new dose of keppra for the past week. She states that she has been sleeping well and denies any increased stress. She states that she has flank pain and reports that she has been having blood in her urine. Her PE found no acute abnormalities. EKG at 1352 shows EKG at 1352 shows Normal sinus rhythm at 85 bpm, normal VT, normal QRS, normal QTc, normal axis, normal ST, normal T-waves, normal EKG. She will be discharged home with a Dx of breakthrough seizures. The pt has a comprehensive plan with her neurologist at [facility] and will continue to follow up with her as they have decieded. - Diagnoses Provider Diagnoses: Breakthrough seizure Discharge ED - Sign-Out/Discharge Documenting (check all that apply): Patient Departure - discharge - Discharge Plan Condition: Good Disposition: HOME Patient Education Materials: Epilepsy (ED) Referrals: Leatha Coles MD [Medical Doctor] - (1 WEEK ALSO PHONE FOLLOWUP) Madhavi Mayorga MD [Primary Care Provider] - 3 Days Additional Instructions: Return to the emergency room for changing or worsening symptoms. Please follow- up with Dr. Coles into the plan of MRIs and CTs as planned, also medications as per your neurologist. Laboratory studies appeared to be within normal limits today, I was unable to find any significant cause of your lower back pain which could be musculoskeletal. - Billing Disposition and Condition Condition: GOOD Disposition: Home - Attestation Statements Document Initiated by Scribe: Yes Documenting Scribe: Elmo Melo Provider For Whom Scribe is Documenting (Include Credential): Dylon Dean MD Scribe Attestation: IElmo, scribed for Dylon Dean MD on 01/30/20 at 2220. Status of Scribe Document: Viewed
[2020-01-30 13:58] LABS: ABS Eosinophils 0.1 10^3/ul (0-0.6); ABS Monocytes 0.4 10^3/ul (0-0.8); ABS Neutrophils 2.4 10^3/ul (1.5-7.7); Eosinophil % 1.7 %; Hematocrit 35 % (35-47); Lymphocyte % 40.6 %; Mean Corpuscular HGB Conc 34 g/dL (31-36); Mean Corpuscular Hemoglobin 29 pg (27-31); Mean Corpuscular Volume 84 fL (80-97); Mean Platelet Volume 6.7 fL (7.4-10.4); Platelet Count 319 10^3/uL (150-450); Red Blood Count 4.19 10^6 /uL (3.70-4.87); Red Cell Distribution Width 15 % (10-15)
[2020-01-30 14:06] LABS: INR 1.03 (0.82-1.09)
[2020-01-30 14:09] LABS: Urine Appearance Cloudy; Urine Bilirubin Negative (Negative); Urine Blood Negative (Negative); Urine Color Yellow; Urine Glucose Negative (Negative); Urine Ketones Negative (Negative); Urine Nitrite Negative (Negative); Urine Protein Negative (Negative); Urine Specific Gravity 1.012 (1.010-1.030); Urine Urobilinogen Negative (Negative)
[2020-01-30 14:15] LABS: Albumin 4.2 g/dL (3.2-5.2); BUN/Creatinine Ratio 9.6 (8-20); Calcium 9.5 mg/dL (8.6-10.3); EGFR African American 159.7 (>60); Globulin 2.1 g/dL (2-4); Magnesium 1.9 mg/dL (1.9-2.7); Potassium 3.5 mmol/L (3.5-5.0); Total Bilirubin 0.4 mg/dL (0.2-1.0); Total Protein 6.3 g/dL (6.4-8.9)
[2020-01-30] MEDS ORDERED: Ondansetron ODT TAB* 4 MG SL ONE (14:27)
[2020-01-30 15:24] VITALS: BP 119/78
== END 2020-01-30 15:24 | disposition home or self-care (01) ==
LOC: ED 13:18
DX: R56.9 Unspecified convulsions (principal); E03.9 Hypothyroidism, unspecified; D64.9 Anemia, unspecified; Z87.891 Personal history of nicotine dependence; Z79.890 Hormone replacement therapy; Z79.899 Other long term (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; Z88.1 Allergy status to other antibiotic agents; Z88.2 Allergy status to sulfonamides; Z88.5 Allergy status to narcotic agent
CPT/HCPCS: 36415; 80053; 80177; 81003; 83605; 83735; 85025; 85610; 93005; 99283; A9270-GY

== ENCOUNTER → 2020-03-07 19:21 | Emergency (ER) | payer OTHER ==
[~2020-03-07 19:21] MED LIST changes: -Acetaminophen TAB* 325 MG PO ONE; +Ciprofloxacin 400MG IVPREMIX(* 400 MG/200 ML BAG IVPB ONE; +Etomidate* 2 MG/ML 20 ML VIAL (40 MG) ONE; +Ketorolac INJ* 30 MG/ML 1 ML VIAL IV PUSH ONE; +LORazepam INJ* 2 MG/ML 1 ML VIAL IV PUSH ONE; +LORazepam INJ* 2 MG/ML 1 ML VIAL ONE; +Lorazepam PYXIS KEY ONE; +Lorazepam PYXIS KEY PRN; +Midazolam* 1 MG/ML 10 ML VIAL (10 MG) IV SLOW PU ONE; +Midazolam* 1 MG/ML 10 ML VIAL (10 MG) ONE; +NS 0.9% 1000 ML** 2,000 ML IV ONE; +NS 0.9% 1000 ML** 400 ML IV SCH; -Ondansetron INJ* 2 MG/ML VIAL IV ONE; +Propofol* 100 ML IV ONE; +Propofol* 100 ML ONE; +Rocuronium* 10 MG/ML VIAL ONE; +Succinylcholine* 20 MG/ML 10 ML VIAL ONE; +Vancomycin(*) 1,000 MG - ED ONCE IV ONE; +Vancomycin(*) 1,000 MG VIAL IVPB SCH; +metroNIDAZOLE IV 500 MG/100ML* 500 MG/100 ML BAG IVPB ONE
--- NOTE | 2020-03-07 19:37 | ED ---
Neurological HPI - HPI Summary HPI Summary: The patient is a 39-year-old female arriving via ambulance from home to [facility] with a chief complaint of six seizures today. Per EMS, they were called for the patient having multiple seizures today. Their family report that her medications have been changed recently. She talked very little during transport. She said, it hurt, but did not specify to EMS what she was referring to. She did not have any seizures in the ambulance. Tachycardic en route but vitals were otherwise stable. Family reported no fevers or recent trauma. Patient seizing in the ED, total-clonic observed. . 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 Patient typically uses a vasovagal stimulator for her seizures, and she also experiences auras prior to the seizures beginning. Former smoker. No alcohol or substance use. Medications reviewed. Allergies noted. Neurologist is Dr. Das in [place]. LEVEL 5 CAVEAT SECONDARY TO PATIENT ACTIVELY SEIZING IN THE ED. - History of Current Complaint Stated Complaint: SEIZURES PER EMS Hx Obtained From: EMS Hx From Patient Unobtainable Due To: Other - PATIENT ACTIVELY SEIZING Hx Last Menstrual Period: hysterectomy Onset/Duration: Started hours ago Seizure Severity: Status Epilepticus Number of Seizures: 6 Pain Intensity: 0 Pain Scale Used: 0-10 Numeric Seizure Character: Total-Clonic Associated Signs and Symptoms: Positive: Seizure. Negative: Fever - Additional Pertinent History Primary Care Physician: [id number] - Allergy/Home Medications Allergies/Adverse Reactions: Allergies Allergy/AdvReac Type Severity Reaction Status Date / Time bee venom protein (honey bee) Allergy Hives Verified 01/14/20 22:13 cephalexin [From Keflex] Allergy Hives Verified 01/14/20 22:13 morphine Allergy Hives Verified 01/14/20 22:13 mushroom Allergy Hives Verified 01/14/20 22:13 Sulfa (Sulfonamide Allergy Rash Verified 01/14/20 22:13 Antibiotics) enviromental Allergy Eyes Uncoded 01/14/20 22:13 Itchy/Swollen/Red/Watery Home Medications: Home Medications Potassium Chlor TAB* [Klor Con ER TAB 10 MEQ*] 10 meq PO DAILY 04/29/17 [ History Confirmed 03/08/20] Levothyroxine TAB* [Synthroid TAB*] 75 mcg PO DAILY 03/28/18 [History Confirmed 03/08/20] Magnesium Oxide TAB* [MagOx 400 TAB*] 400 mg PO DAILY 03/28/18 [History Confirmed 03/08/20] Eslicarbazepine Acetate (NF) [Aptiom] 800 mg PO BID 06/22/19 [History Confirmed 03/08/20] Sertraline* [Zoloft*] 100 mg PO DAILY 06/22/19 [History Confirmed 03/08/20] levETIRAcetam [Levetiracetam] 1,500 mg PO BID 12/02/19 [History Confirmed ] Cholecalciferol CAP/TAB(NF) [Vitamin D3 CAP/TAB (NF)] 2,000 unit PO DAILY [History Confirmed 03/08/20] Cyanocobalamin TAB* [Vitamin B12 TAB*] 1,000 mcg SL DAILY 03/08/20 [History Confirmed 03/08/20] Ferrous Sulfate TAB* 325 mg PO DAILY 03/08/20 [History Confirmed 03/08/20] Ibuprofen TAB* [Motrin TAB* 600 MG] 600 mg PO Q6H PRN 03/08/20 [History Confirmed 03/08/20] Meclizine TAB* [Antivert 12.5 TAB*] 25 mg PO BID 03/08/20 [History Confirmed ] Pyridoxine TAB* [Vitamin B6 TAB*] 50 mg PO DAILY 03/08/20 [History Confirmed ] diPHENhydraMINE PO* [Benadryl PO 25 MG TAB*] 50 mg PO TID PRN 03/08/20 [History Confirmed 03/08/20] PMH/Surg Hx/FS Hx/Imm Hx Endocrine/Hematology History: Reports: Hx Thyroid Disease, Hx Anemia - IV iron tx Denies: Hx Anticoagulant Therapy, Hx Diabetes Cardiovascular History: Reports: Hx Hypotension Denies: Hx Congestive Heart Failure, Hx Hypercholesterolemia, Hx Hypertension , Hx Pacemaker/ICD Comment Only: Other Cardiovascular Problems/Disorders - Arteriovenous malformation - Sx repair in 2008. Right atrial enlargement. 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 RT TEMPORAL LOBE IN 2008 [place] (removed scar tissue). 5 CSECTIONS. VNM simulater.07/2017 Hx Anesthesia Reactions: No - Immunization History Date of Tetanus Vaccine: unk Date of Influenza Vaccine: fall 2018 Infectious Disease History: Denies: Hx Hepatitis, Hx Human Immunodeficiency Virus (HIV) - Family History Known Family History: Positive: Cardiac Disease, Hypertension, Other - cancer; denies AVM in the family Negative: Diabetes - Social History Alcohol Use: None Hx Substance Use: No Substance Use Type: Reports: None Substance Use Comment - Amount & Last Used: occassional Hx Tobacco Use: Yes Smoking Status (MU): Former Smoker Have You Smoked in the Last Year: No Review of Systems Neurological/Mental Status: Other - 6 seizures today All Other Systems Reviewed And Are Negative: No - Comments Additional Review of Systems Comments: LEVEL 5 CAVEAT SECONDARY TO PATIENT ACTIVELY SEIZING. Physical Exam - Summary Physical Exam Summary: VITAL SIGNS: Reviewed. GENERAL: Patient is a thin female, tachycardic, hypoxic actively seizing having total-clonic seizures. HEAD AND FACE: No signs of trauma. No ecchymosis, hematomas or skull depressions. No sinus tenderness. MOUTH: Dry oral mucosa. LUNGS: Coarse breath sounds bilaterally. Hypoxic. CHEST: Vasovagal stimulator in the left chest. CVS: Tachycardix, S1 and S2 present, no murmurs or gallops appreciated. ABDOMEN: Soft, Bowel sounds are normal. NEURO: Actively seizing. Unresponsive. Moving right side more than the left. SKIN: Dry and warm. GCS: 6 (see scale). Triage Information Reviewed: Yes Vital Signs Reviewed: Yes Completion Of Physical Exam Limited Due To: Level 5 - PATIENT ACTIVELY SEIZING - Wolfgang Coma Scale Best Eye Response: 2 - To Pain Best Motor Response: 3 - Flexion (Decorticate) Best Verbal Response: 1 - None Coma Scale Total: 6 Procedures - Procedure Summary Procedure Summary: Intubation [1950]: Patient continued have multiple seizures, nonstop, continuous , became hypoxic despite mask, therefore decision was made to intubate the patient. Patient intubated on first attempt. Given Etomidate and Succinylcholine. Confirmation of the tube with CO2 detector with chest x-ray. Procedure - Endotracheal Intubation Permit was implied secondary to an emergent situation. An LMA and bougie were placed within arm's reach. A Glidescope blade was inserted into the oropharynx at which time the vocal cords were visualized. A 7.5 [place] endotracheal tube was inserted and visualized going through the vocal cords. The stylet was removed. The colorimetric change was visualized on the CO2 meter. Breath sounds were heard in both lung dixon equally. The endotracheal tube was placed at 23 cm, measured at the teeth. Portable chest x- ray ordered for confirmation of tube level. Post intubation sedation ordered. Intubation was made at the first attempt. No complications were encountered. - Sedation Patient Received Moderate/Deep Sedation with Procedure: No Diagnostics - Laboratory Result Diagrams: 03/07/20 19:36 03/07/20 19:36 Lab Statement: Any lab studies that have been ordered have been reviewed, and results considered in the medical decision making process. - EKG 2020 Cardiac Rate: Tachycardia - 119 BPM EKG Rhythm: Sinus Tachycardia Summary of EKG Findings: EKG at 2020 reveals sinus tachycardia at 119 BPM. Normal axis. No ST elevations. Dr. Lee has reviewed and interpreted this EKG. Course/Dx - Course Course Of Treatment: Procedure - Endotracheal Intubation Permit was implied secondary to an emergent situation. An LMA and bougie were placed within arm's reach. A Glidescope blade was inserted into the oropharynx at which time the vocal cords were visualized. A 7.5 [place] endotracheal tube was inserted and visualized going through the vocal cords. The stylet was removed. The colorimetric change was visualized on the CO2 meter. Breath sounds were heard in both lung dixon equally. The endotracheal tube was placed at 23 cm, measured at the teeth. Portable chest x-ray ordered for confirmation of tube level. Post intubation sedation ordered. Intubation was made at the first attempt. No complications were encountered. Assessment/Plan: The patient is a 39-year-old female arriving via ambulance from home to [facility] with a chief complaint of six seizures today. Per EMS, they were called for the patient having multiple seizures today. Their family report that her medications have been changed recently. She talked very little during transport. She said, it hurt, but did not specify to EMS what she was referring to. She did not have any seizures in the ambulance. Tachycardic en route but vitals were otherwise stable. Family reported no fevers or recent trauma. Patient seizing in the ED, total-clonic observed. . 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 Patient typically uses a vasovagal stimulator for her seizures, and she also experiences auras prior to the seizures beginning. Former smoker. No alcohol or substance use. Medications reviewed. Allergies noted. LEVEL 5 CAVEAT SECONDARY TO PATIENT ACTIVELY SEIZING IN THE ED. In the ED course, the patient was placed on a desk monitor, 2 IV accesses were obtained, IV fluids started. She was given 2 mg of Ativan. The patient continued to have continuous seizures. I believe the patient is in status epilepticus. The patient is becoming hypoxic despite a non-rebreathing mask at 15L. At this point, I decided to intubate the patient for airway protection and also the patient is hypoxic. After intubation the patients HR decreased to 110 to 120 BPM, O2 sat is 99%. NGT and Pyle catheter was placed. Past medical records reviewed. Medications: Keppra 1500 mg BID, Aptiom 800 mg BID. EKG: sinus tachycardia w/o ST elevation. Patient seems to move her left side more than the left side therefore, I decided to order a head CT. Blood test w/o a significant abnormality except for WBCs 12, HB 11.5, Hct 34, INR 1.1. Patient will be signed out to Dr. Murphy. - Diagnoses Provider Diagnoses: Status epilepticus - Critical Care Time Critical Care Statement: Critical care time is provided exclusive of any time spent performing procedures. Discharge ED - Sign-Out/Discharge Documenting (check all that apply): Sign-Out Patient Signing out patient TO: Marvin Bernard - Patient is a sign-out to Dr. Marvin Bernadr MD, at 2100 on 03/07/2020, pending labs, CXR, Brain CT, and disposition. - Discharge Plan Condition: Critical Disposition: TRANS HIGHER LVL OF CARE FAC Referrals: Madhavi Mayorga MD [Primary Care Provider] - - Billing Disposition and Condition Condition: STABLE - Attestation Statements Document Initiated by Scribe: Yes Documenting Scribe: Milla Lion Provider For Whom Elle is Documenting (Include Credential): Gumaro Lee MD Scribe Attestation: I, Milla Lion, scribed for Gumaro Lee MD on 03/09/20 at 3799. Scribe Documentation Reviewed: Yes Provider Attestation: The documentation as recorded by the Milla weller accurately reflects the service I personally performed and the decisions made by me, Gumaro Lee MD Status of Scribe Document: Viewed
[2020-03-07 20:20] LABS: ABS Eosinophils 0.1 10^3/ul (0-0.6); ABS Lymphocytes 1.9 10^3/ul (1.0-4.8); ABS Monocytes 0.8 10^3/ul (0-0.8); ABS Neutrophils 9.2 10^3/ul (1.5-7.7); Eosinophil % 0.7 %; Hematocrit 34 % (35-47); Hemoglobin 11.5 g/dL (12.0-16.0); Lymphocyte % 16.1 %; Mean Corpuscular HGB Conc 34 g/dL (31-36); Mean Corpuscular Hemoglobin 30 pg (27-31); Mean Corpuscular Volume 87 fL (80-97); Mean Platelet Volume 6.7 fL (7.4-10.4); Platelet Count 304 10^3/uL (150-450); Red Blood Count 3.89 10^6 /uL (3.70-4.87); Red Cell Distribution Width 16 % (10-15)
[2020-03-07 20:27] LABS: INR 1.1 (0.82-1.09)
[2020-03-07 20:37] LABS: Urine Appearance Clear; Urine Bilirubin Negative (Negative); Urine Blood 1+ (Negative); Urine Color Yellow; Urine Glucose 1+(50 mg/dL) (Negative); Urine Ketones Trace (Negative); Urine Nitrite Negative (Negative); Urine Protein 1+(30 mg/dL) (Negative); Urine Specific Gravity 1.016 (1.010-1.030); Urine Urobilinogen Negative (Negative)
[2020-03-07 20:40] LABS: Urine Bacteria Absent (Absent); Urine Red Blood Cell Absent (Absent); Urine Squamous Epithelial Cell Present (Absent); Urine White Blood Cell Absent (Absent)
[2020-03-07 20:44] LABS: Alcohol < 10 mg/dL (<10)
[2020-03-07 20:46] LABS: ALT 15 U/L (7-52); AST 25 U/L (13-39); Albumin 4.2 g/dL (3.2-5.2); Alkaline Phosphatase 51 U/L (34-104); Anion Gap 11 mmol/L (2-11); BUN/Creatinine Ratio 8.1 (8-20); Blood Urea Nitrogen 5 mg/dL (6-24); CO2 Carbon Dioxide 20 mmol/L (22-32); Calcium 8.3 mg/dL (8.6-10.3); Chloride 97 mmol/L (101-111); Creatine Kinase 77 U/L (10-223); EGFR African American 130.3 (>60); EGFR Non-African American 107.7 (>60); Globulin 2.1 g/dL (2-4); Glucose 166 mg/dL (70-100); Magnesium 1.6 mg/dL (1.9-2.7); Potassium 3.1 mmol/L (3.5-5.0); Sodium 128 mmol/L (135-145); Total Protein 6.3 g/dL (6.4-8.9)
[2020-03-07 21:00] LABS: TSH (Thyroid Stimulating Horm) 0.65 mcIU/mL (0.34-5.60)
[2020-03-07] MEDS: KCL 10 MEQ/50 ML IVPREMIX* 10 MEQ/50 ML BAG IV SCH ×2 (21:08→22:32)
[2020-03-07 21:22] LABS: HCG Pregnancy < 0.60 mIU/mL
--- NOTE | 2020-03-07 21:43 | ED ---
Progress - Progress Note Progress Note: Patient is received as a sign-out from Dr. Lee at 209903/07/20 shift change. The patient had been brought to ED for the reported occurrence of six seizures today. While in ED, the patient had a total-clonic seizure; she was given Ativan 2 mg but had continuous seizures. She was hypoxic despite non- rebreathing mask with 15 L o2 and was intubated for hypoxia and airway protection. PMHx of AV malformation with rupture in 2006, temporal lobe repair in 2008, VNM simulator. Patient is prescribed Keppra 1500 mg BID and Aptiom 800 mg BID. Family had reported recent medication change. Patient is received sign- out pending CXR, CT brain, and labs. Bloodwork was obtained, abnormal values include sodium 128, potassium 3.1, chloride 97, carbon dioxide 20, BUN 5 glucose 166, lactic acid 4.6, calcium 8.3 , magnesium 1.6, total protein 6.3. 2143 patients case was discussed with Dr. Stoll, patient will be transferred to higher level of care facility. Patient will require continuous EEG. As patient's neurologist is Dr. Das at [facility] in [place], will reach out to them first. 2250 Patients case was discussed with Dr. Shaw from [facility], Dr. Shaw accepts the patient for transfer to [facility] neuro ICU. Re-Evaluation - Re-Evaluation First Eval Re-Evaluation Time: 22:19 Comment: Patient is moving around and flailing head. Propofol drip is still going. Versed to be given PRN. Second Eval Re-Evaluation Time: 22:41 Comment: Initial report given to transfer center. Course/Dx - Course Course Of Treatment: Patient is received as a sign-out from Dr. Lee at 2099 shift change. The patient had been brought to ED for the reported occurrence of six seizures today. While in ED, the patient had a total-clonic seizure; she was given Ativan 2 mg but had continuous seizures. She was hypoxic despite non-rebreathing mask with 15 L o2 and was intubated for hypoxia and airway protection. PMHx of AV malformation with rupture in 2006, temporal lobe repair in 2008, VNM simulator. Patient is prescribed Keppra 1500 mg BID and Aptiom 800 mg BID. Family had reported recent medication change. Patient is received sign-out pending CXR, CT brain, and labs. Bloodwork was obtained, abnormal values include sodium 128, potassium 3.1, chloride 97, carbon dioxide 20, BUN 5 glucose 166, lactic acid 4.6, calcium 8.3, magnesium 1.6, total protein 6.3. 2142 patients case was discussed with Dr. Stoll, patient will be transferred to higher level of care facility. Patient will require continuous EEG. As patient's neurologist is Dr. Das at [facility] in [place], will reach out to them first. 2218 - Patient is moving around and flailing head. Propofol drip is still going. Versed to be given PRN. - Diagnoses Provider Diagnoses: Status epilepticus - Provider Notifications Discussed Care Of Patient With: Preston Stoll Time Discussed With Above Provider: 21:43 Instructed by Provider To: Other - 2142 patients case was discussed with Dr. Stoll, patient will be transferred to higher level of care facility. 2249 Patients case was discussed with Dr. Shaw from [facility], Dr. Shaw accepts the patient for transfer to [facility] neuro ICU. - Critical Care Time Critical Care Time: 30-74 min Critical Care Statement: Critical care time is provided exclusive of any time spent performing procedures. Discharge ED - Sign-Out/Discharge Documenting (check all that apply): Receiving Sign-Out Receiving patient FROM: Gumaro Lee - Discharge Plan Condition: Critical Disposition: TRANS HIGHER LVL OF CARE FAC Referrals: Madhavi Mayorga MD [Primary Care Provider] - - Billing Disposition and Condition Condition: CRITICAL Disposition: Trans Higher Lvl of Care Fac - Attestation Statements Document Initiated by Elle: Yes Documenting Scribe: NAKUL BARRERA Provider For Whom Elle is Documenting (Include Credential): MEGAN MACHADO MD Scribe Attestation: NAKUL Bolton, scribed for MEGAN MACHADO MD on 03/07/20 at 2316. Scribe Documentation Reviewed: Yes Provider Attestation: The documentation as recorded by the NAKUL weller accurately reflects the service I personally performed and the decisions made by me, MEGAN MACHADO MD Status of Scribe Document: Viewed
[2020-03-07] MEDS: Midazolam IV for DRIP* 100 MG in NS 0.9% 100 ML* 80 ML IV SCH (23:44)
--- NOTE | 2020-03-08 02:12 | ED ---
Progress - Progress Note Progress Note: Patient is received as a sign-out from Dr. Lee at 209903/07/20 shift change. The patient had been brought to ED for the reported occurrence of six seizures today. While in ED, the patient had a total-clonic seizure; she was given Ativan 2 mg but had continuous seizures. She was hypoxic despite non- rebreathing mask with 15 L o2 and was intubated for hypoxia and airway protection. PMHx of AV malformation with rupture in 2006, temporal lobe repair in 2008, VNM simulator. Patient is prescribed Keppra 1500 mg BID and Aptiom 800 mg BID. Family had reported recent medication change. Patient is received sign- out pending CXR, CT brain, and labs. Bloodwork was obtained, abnormal values include sodium 128, potassium 3.1, chloride 97, carbon dioxide 20, BUN 5 glucose 166, lactic acid 4.6, calcium 8.3 , magnesium 1.6, total protein 6.3. 2143 patients case was discussed with Dr. Stoll, patient will be transferred to higher level of care facility. Patient will require continuous EEG. As patient's neurologist is Dr. Das at [facility] in [place], will reach out to them first. 2250 Patients case was discussed with Dr. Shaw from [facility], Dr. Shaw accepts the patient for transfer to [facility] neuro ICU. Re-Evaluation - Re-Evaluation First Eval Re-Evaluation Time: 22:19 Comment: Patient is moving around and flailing head. Propofol drip is still going. Versed to be given PRN. Second Eval Re-Evaluation Time: 22:41 Comment: Initial report given to transfer center. Course/Dx - Course Course Of Treatment: Patient is received as a sign-out from Dr. Lee at 2099 shift change. The patient had been brought to ED for the reported occurrence of six seizures today. While in ED, the patient had a total-clonic seizure; she was given Ativan 2 mg but had continuous seizures. She was hypoxic despite non-rebreathing mask with 15 L o2 and was intubated for hypoxia and airway protection. PMHx of AV malformation with rupture in 2006, temporal lobe repair in 2008, VNM simulator. Patient is prescribed Keppra 1500 mg BID and Aptiom 800 mg BID. Family had reported recent medication change. Patient is received sign-out pending CXR, CT brain, and labs. Bloodwork was obtained, abnormal values include sodium 128, potassium 3.1, chloride 97, carbon dioxide 20, BUN 5 glucose 166, lactic acid 4.6, calcium 8.3, magnesium 1.6, total protein 6.3. 2142 patients case was discussed with Dr. Stoll, patient will be transferred to higher level of care facility. Patient will require continuous EEG. As patient's neurologist is Dr. Das at [facility] in [place], will reach out to them first. 2218 - Patient is moving around and flailing head. Propofol drip is still going. Versed to be given PRN. - Diagnoses Provider Diagnoses: Status epilepticus - Provider Notifications Time Discussed With Above Provider: 21:43 Instructed by Provider To: Other - 2142 patients case was discussed with Dr. Stoll, patient will be transferred to higher level of care facility. 2249 Patients case was discussed with Dr. Shaw from [facility], Dr. Shaw accepts the patient for transfer to [facility] neuro ICU. - Critical Care Time Critical Care Time: 30-74 min Critical Care Statement: Critical care time is provided exclusive of any time spent performing procedures. Discharge ED - Sign-Out/Discharge Documenting (check all that apply): Patient Departure - Discharge Plan Condition: Critical Disposition: TRANS HIGHER LVL OF CARE FAC Referrals: Madhavi Mayorga MD [Primary Care Provider] - - Billing Disposition and Condition Condition: CRITICAL Disposition: Trans Higher Lvl of Care Fac Procedures - Procedure Summary Procedure Summary: Intubation [1950]: Patient continued have multiple seizures, nonstop, continuous , became hypoxic despite mask, therefore decision was made to intubate the patient. Patient intubated on first attempt. Given Etomidate and Succinylcholine. Confirmation of the tube with CO2 detector with chest x-ray. Procedure - Endotracheal Intubation Permit was implied secondary to an emergent situation. An LMA and bougie were placed within arm's reach. A Glidescope blade was inserted into the oropharynx at which time the vocal cords were visualized. A 7.5 [place] endotracheal tube was inserted and visualized going through the vocal cords. The stylet was removed. The colorimetric change was visualized on the CO2 meter. Breath sounds were heard in both lung dixon equally. The endotracheal tube was placed at 23 cm, measured at the teeth. Portable chest x- ray ordered for confirmation of tube level. Post intubation sedation ordered. Intubation was made at the first attempt. No complications were encountered. - Sedation Patient Received Moderate/Deep Sedation with Procedure: No - Central Line Right Jugular Triple Lumen Central Venous Catheter Central Line Lumen: triple Central Line Procedure: betadine prep, sterile drapes applied, sterile dressing applied Central Line Position: internal jugular (R) Anesthesia: Lidocaine Complications: Line was placed using ultrasound guidance Central Line Post Position: sutured, good blood return, position confirmed w/ CXR - Intubation Time of Intubation: 19:50
[2020-03-08 04:20] LABS: Urine Appearance Cloudy; Urine Bilirubin Negative (Negative); Urine Blood 2+ (Negative); Urine Color Yellow; Urine Glucose 1+(50 mg/dL) (Negative); Urine Ketones Negative (Negative); Urine Nitrite Negative (Negative); Urine Protein 1+(30 mg/dL) (Negative); Urine Specific Gravity 1.015 (1.010-1.030); Urine Urobilinogen Negative (Negative)
[2020-03-08 04:22] LABS: Urine Bacteria Absent (Absent); Urine Red Blood Cell 2+(6-10/hpf) (Absent); Urine Squamous Epithelial Cell Present (Absent); Urine White Blood Cell Trace(0-5/hpf) (Absent)
--- NOTE | 2020-03-08 07:25 | ED ---
Re-Evaluation - Re-Evaluation First Eval Re-Evaluation Time: 07:20 Comment: [facility] is unable to take patient because they do not have a bed available for PUI Second Eval Re-Evaluation Time: 07:30 Comment: [facility] called with a bed assignment Course/Dx - Diagnoses Provider Diagnoses: Status epilepticus - Provider Notifications Discussed Care Of Patient With: Zion Liu - Recommends transfer to another facility if [facility] cannot accept patient Time Discussed With Above Provider: 07:23 - Critical Care Time Critical Care Statement: Critical care time is provided exclusive of any time spent performing procedures. Discharge ED - Sign-Out/Discharge Documenting (check all that apply): Patient Departure - Discharge Plan Condition: Critical Disposition: TRANS HIGHER LVL OF CARE FAC Referrals: Madhavi Mayorga MD [Primary Care Provider] - - Billing Disposition and Condition Condition: CRITICAL Disposition: Trans Higher Lvl of Care Fac - Attestation Statements Document Initiated by Scribe: Yes Documenting Scribe: Felicity Rosen Provider For Whom Elle is Documenting (Include Credential): Javier Gómez MD Scribe Attestation: Felicity Bolton, scribed for Javier Gómez MD on 03/08/20 at 0731. Scribe Documentation Reviewed: Yes Provider Attestation: The documentation as recorded by the Felicity weller accurately reflects the service I personally performed and the decisions made by Javier coker MD Status of Scribe Document: Viewed
[2020-03-08] MEDS: Midazolam IV for DRIP* 100 MG in NS 0.9% 100 ML* 80 ML IV SCH (08:16)
[2020-03-08 08:33] VITALS: BP 103/71
== END | disposition short-term general hospital (02) ==
LOC: ED 19:21
DX: G40.901 Epilepsy, unspecified, not intractable, with status epilepticus (principal); E03.9 Hypothyroidism, unspecified; R51 Headache; Z87.891 Personal history of nicotine dependence; Z79.890 Hormone replacement therapy; Z88.6 Allergy status to analgesic agent; Z88.2 Allergy status to sulfonamides; R94.31 Abnormal electrocardiogram [ECG] [EKG]
CPT/HCPCS: 36415; 70450; 71045; 80053; 80320; 81003; 81015; 82550; 82803; 83605; 83735; 84443; 84702; 85025; 85610; 87040; 87086; 87635; 93005; 96361; 96365; 96366; 96375; 96376; 99285; A9270-GY; G0480; J0330; J0744; J1885; J2060; J2250; J2704; J3370; J3480; U0003